=== PATIENT | female | born 1985 | race Caucasian/White ===

== ENCOUNTER 2017-01-14 19:25 | Emergency (ER) | payer MEDICAID, OTHER ==
[~2017-01-14] VITALS: Ht 142.2 cm; Wt 56.0 kg
[~2017-01-14 19:25] MED LIST: ARIP2 PO; ASPI-1061 PO; BENA5TAB26 PO; CITA20TA9 PO; CLON.5 PO; DIVA500T35 PO; INSU100V12 SQ; LEVO50 PO; OXYB5TAB27 PO; PANT40TA PO
[2017-01-14] MEDS ORDERED: LEVO50TA4 PO (20:03)
[2017-01-14] MEDS ORDERED: OLAN7.5T2 PO (20:03)
[2017-01-14] MEDS ORDERED: DIVA500T35 PO (20:03)
[2017-01-14] MEDS ORDERED: GUAN1TAB22 PO (20:03)
[2017-01-14] MEDS ORDERED: INSU100V3 SQ (20:03)
[2017-01-14] MEDS ORDERED: METF500T4 PO (20:03)
[2017-01-14] MEDS ORDERED: OXCA300T PO (20:03)
[2017-01-14] MEDS ORDERED: TOPI100 PO (20:03)
[2017-01-14] MEDS ORDERED: OXYB5XL PO (20:03)
[2017-01-14] MEDS ORDERED: FERSL PO (20:03)
[2017-01-14] MEDS ORDERED: BENA5TAB26 PO (20:03)
[2017-01-14] MEDS ORDERED: SIMV-260 PO (20:03)
[2017-01-14 22:24] LABS: BASOPHILS % (AUTO) 0.2 % (0.0-2.0); EOSINOPHILS % (AUTO) 0.5 % (1.0-6.0); HEMATOCRIT 26.7 % (36-46); HEMOGLOBIN 8.6 g/dL (12.0-16.0); LYMPHOCYTES # (AUTO) 3.8 K/uL (1.0-4.8); LYMPHOCYTES % (AUTO) 33.3 % (22.0-44.0); MEAN CORPUSCULAR HEMOGLOBIN 29.3 pg (26.0-34.0); MEAN CORPUSCULAR HGB CONC 32.3 G/dL (31.0-37.0); MEAN CORPUSCULAR VOLUME 91 fL (80-100); MONOCYTES # (AUTO) 1.3 K/uL (0.1-1.0); MONOCYTES % (AUTO) 10.9 % (2.0-9.0); NEUTROPHILS # (AUTO) 6.4 K/uL (1.8-7.7); NEUTROPHILS % (AUTO) 55.1 % (40.0-70.0); PLATELET COUNT (AUTO) 457 K/uL (150-450); RED BLOOD CELL COUNT(AUTO) 2.94 MIL/uL (4.00-5.20); RED CELL DISTRIBUTION WIDTH 14.6 % (11.5-14.5); WHITE BLOOD COUNT (AUTO) 11.5 K/uL (4.5-11.0)
[2017-01-14 22:35] LABS: ANION GAP 6 mmol/L (8-16); CALCIUM, TOTAL 9.3 mg/dL (8.8-10.5); CARBON DIOXIDE 28 mmol/L (22-29); CHLORIDE 107 mmol/L (98-107); CREATININE 0.73 mg/dL (0.60-1.30); GLOMERULAR FILTR. RATE CALC > 60 mL/min (>60); POTASSIUM 4.1 mmol/L (3.5-5.1); SODIUM SERUM 141 mmol/L (136-145); UREA NITROGEN, BLOOD 36 mg/dL (7-18)
[2017-01-14 22:40] LABS: ALANINE AMINOTRANSFERASE 22 U/L (12-78); ALBUMIN 2.7 g/dL (3.4-5.0); ASPARTATE AMINOTRANSFERASE 17 U/L (15-37); BILIRUBIN,TOTAL 0.2 mg/dL (0.1-1.0); TOTAL PROTEIN, SERUM 6.6 g/dL (6.4-8.2)
[2017-01-14 23:46] LABS: GLUCOSE,POINT OF CARE 94 MG/DL (70-110)
[2017-01-15 00:32] VITALS: BP 116/69
== END 2017-01-15 00:34 | disposition home or self-care (01) ==
LOC: EMS 19:27
DX: S00.81XA Abrasion of other part of head, initial encounter (principal); M54.5 Low back pain; E11.9 Type 2 diabetes mellitus without complications; E78.00 Pure hypercholesterolemia, unspecified; E03.9 Hypothyroidism, unspecified; I10 Essential (primary) hypertension; Z79.4 Long term (current) use of insulin; Z79.82 Long term (current) use of aspirin; X58.XXXA Exposure to other specified factors, initial encounter; Y93.89 Activity, other specified; Y92.89 Other specified places as the place of occurrence of the external cause; Y99.8 Other external cause status
CPT/HCPCS: 82962; 99284

== ENCOUNTER 2017-04-29 13:05 | Inpatient (IN) | payer MEDICAID, OTHER ==
[~2017-04-29] VITALS: Ht 144.8 cm; Wt 56.0 kg
[~2017-04-29 13:05] MED LIST changes: -ASPI-1061 PO; +ASPI81TA33 PO; +FERSL PO; +GUAN1TAB22 PO; +INSU100V3 SQ; +LEVO50TA4 PO; +METF500T4 PO; +OLAN7.5T2 PO; +OXCA300T PO; +OXYB5XL PO; +SIMV-260 PO; +TOPI100T37 PO
[2017-04-29] MEDS ORDERED: HALOPERIDOL LACTATE 5 MG/ML VIAL IM ONE (14:15)
[2017-04-29] MEDS ORDERED: LORazepam 2 MG/ML VIAL IM ONE ×2 (14:15→21:30)
[2017-04-29] MEDS: QUEtiapine FUMARATE 100 MG TABLET PO SCH (16:24)
[2017-04-29 17:06] LABS: BASOPHILS # (AUTO) 0.02 K/uL (0.00-0.20); BASOPHILS % (AUTO) 0.2 % (0.0-2.0); EOSINOPHILS # (AUTO) 0.02 K/uL (0.00-0.70); HEMATOCRIT 32.9 % (36-46); HEMOGLOBIN 10.9 g/dL (12.0-16.0); LYMPHOCYTES # (AUTO) 3.2 K/uL (1.0-4.8); LYMPHOCYTES % (AUTO) 40.5 % (22.0-44.0); MEAN CORPUSCULAR HEMOGLOBIN 32.3 pg (26.0-34.0); MEAN CORPUSCULAR VOLUME 98 fL (80-100); MONOCYTES # (AUTO) 0.8 K/uL (0.1-1.0); MONOCYTES % (AUTO) 10.4 % (2.0-9.0); NEUTROPHILS # (AUTO) 3.8 K/uL (1.8-7.7); NEUTROPHILS % (AUTO) 48.7 % (40.0-70.0); PLATELET COUNT (AUTO) 249 K/uL (150-450); RED BLOOD CELL COUNT(AUTO) 3.37 MIL/uL (4.00-5.20); RED CELL DISTRIBUTION WIDTH 15.2 % (11.5-14.5); WHITE BLOOD COUNT (AUTO) 7.8 K/uL (4.5-11.0)
[2017-04-29 17:07] LABS: ANION GAP 3 mmol/L (8-16); CARBON DIOXIDE 28 mmol/L (22-29); CHLORIDE 104 mmol/L (98-107); CREATININE 0.78 mg/dL (0.60-1.30); GLOMERULAR FILTR. RATE CALC > 60 mL/min (>60); POTASSIUM 4.4 mmol/L (3.5-5.1); SODIUM SERUM 135 mmol/L (136-145); UREA NITROGEN, BLOOD 26 mg/dL (7-18)
[2017-04-29 17:22] LABS: ALANINE AMINOTRANSFERASE 13 U/L (12-78); ALBUMIN 2.4 g/dL (3.4-5.0); ASPARTATE AMINOTRANSFERASE 19 U/L (15-37); BILIRUBIN,TOTAL 0.1 mg/dL (0.1-1.0); CHOL/HDL RATIO 2.7 (3.9-5.7); THYROID STIMULATING HORMONE 11.86 uIU/mL (0.36-3.74); VALPROIC ACID 44 mcg/mL (50-100)
[2017-04-29 21:52] LABS: GLUCOSE,POINT OF CARE 46 MG/DL (70-110)
[2017-04-29] MEDS ORDERED: DEXTROSE 50%-WATER 25 GM/50 ML SYRINGE IVP ONE (22:00)
[2017-04-29 22:37] LABS: GLUCOSE,POINT OF CARE 126 MG/DL (70-110)
[2017-04-29 23:12] LABS: GLUCOSE,POINT OF CARE 187 MG/DL (70-110)
[2017-04-30] MEDS ORDERED: -PHARMACY VACCINE NOTE- MISC ONE ×2 (01:15)
[2017-04-30] MEDS ORDERED: INFLUENZA VIRUS VACCINE QVS 2017-18 (3YR+)/PF 60 MCG/0.5 ML SYRINGE IM ONE (01:15)
[2017-04-30] MEDS: LORazepam 2 MG TABLET PO PRN (01:30)
[2017-04-30 01:48] VITALS: BP 113/89
[2017-04-30 05:58] LABS: GLUCOSE COMMENT 1 Received Meds; GLUCOSE,POINT OF CARE 105 MG/DL (70-110)
[2017-04-30] MEDS: RisperiDONE 0.5 MG TABLET PO SCH ×2 (08:47→17:00)
[2017-04-30] MEDS: ClonazePAM 0.5 MG TABLET PO SCH ×3 (08:47→17:00)
[2017-04-30] MEDS: GuanFACINE HCL 1 MG TABLET PO SCH ×2 (08:47→17:00)
[2017-04-30] MEDS: DIVALPROEX SODIUM 500 MG DR TABLET PO SCH ×3 (08:47→17:00)
[2017-04-30] MEDS: QUEtiapine FUMARATE 100 MG TABLET PO SCH ×3 (08:47→17:00)
[2017-04-30] MEDS ORDERED: DiphenhydrAMINE HCL 50 MG/ML VIAL IM ONE (16:30)
[2017-04-30] MEDS ORDERED: LORazepam 2 MG/ML VIAL IM ONE (16:30)
[2017-04-30] MEDS ORDERED: HALOPERIDOL LACTATE 5 MG/ML VIAL IM ONE (16:30)
[2017-04-30] MEDS ORDERED: ARIP10TA8 PO (16:31)
[2017-05-01] MEDS: ZOLPIDEM TARTRATE 10 MG TABLET PO PRN ×2 (00:13→21:50)
[2017-05-01 06:12] LABS: GLUCOSE,POINT OF CARE 110 MG/DL (70-110)
[2017-05-01] MEDS ORDERED: DEXTROSE 50%-WATER 25 GM/50 ML SYRINGE IVP PRN (07:15)
[2017-05-01] MEDS: LEVOTHYROXINE SODIUM 50 MCG TABLET PO SCH (07:25)
[2017-05-01] MEDS: FERROUS SULFATE 300 MG/5 ML LIQUID UDCUP PO SCH ×2 (07:25→17:49)
[2017-05-01] MEDS: LevETIRAcetam 250 MG TABLET PO SCH ×2 (08:16→17:49)
[2017-05-01] MEDS: OXYBUTYNIN CHLORIDE 5 MG ER TABLET PO SCH (08:16)
[2017-05-01] MEDS: GuanFACINE HCL 1 MG TABLET PO SCH ×2 (08:16→17:49)
[2017-05-01] MEDS: MULTIVITAMINS WITH MINERALS, THERAPEUTIC TABLET PO SCH (08:19)
[2017-05-01] MEDS: PANTOPRAZOLE SODIUM 40 MG DR TABLET PO SCH (08:20)
[2017-05-01] MEDS: ASPIRIN 81 MG EC TABLET PO SCH (08:20)
[2017-05-01] MEDS: ClonazePAM 0.5 MG TABLET PO SCH ×3 (08:20→17:51)
[2017-05-01] MEDS: DOCUSATE SODIUM 100 MG CAPSULE PO PRN (08:20)
[2017-05-01] MEDS: SIMVASTATIN 20 MG TABLET PO SCH (08:20)
[2017-05-01] MEDS: HALOPERIDOL 5 MG TABLET PO PRN (08:20)
[2017-05-01] MEDS: LORazepam 2 MG TABLET PO PRN ×2 (08:20→21:50)
[2017-05-01] MEDS: RisperiDONE 0.5 MG TABLET PO SCH ×2 (08:20→17:51)
[2017-05-01] MEDS: DIVALPROEX SODIUM 500 MG DR TABLET PO SCH ×3 (08:20→17:53)
[2017-05-01] MEDS: QUEtiapine FUMARATE 100 MG TABLET PO SCH ×3 (08:21→17:51)
[2017-05-01] MEDS ORDERED: GuanFACINE HCL 1 MG TABLET PO SCH (09:00)
[2017-05-01 12:03] LABS: GLUCOSE,POINT OF CARE 264 MG/DL (70-110)
[2017-05-01] MEDS: INSULIN ASPART 100 UNITS/ML SQ PRN ×3 (12:16→21:30)
[2017-05-01 17:43] LABS: GLUCOSE,POINT OF CARE 186 MG/DL (70-110)
[2017-05-01 22:13] LABS: GLUCOSE,POINT OF CARE 176 MG/DL (70-110)
[2017-05-02 06:24] LABS: GLUCOSE COMMENT 1 Received Meds; GLUCOSE,POINT OF CARE 126 MG/DL (70-110)
[2017-05-02] MEDS: LEVOTHYROXINE SODIUM 50 MCG TABLET PO SCH (06:45)
[2017-05-02] MEDS: FERROUS SULFATE 300 MG/5 ML LIQUID UDCUP PO SCH ×2 (06:45→17:14)
[2017-05-02 08:00] VITALS: BP 111/74
[2017-05-02 08:08] LABS: ANION GAP 6 mmol/L (8-16); CARBON DIOXIDE 28 mmol/L (22-29); CHLORIDE 101 mmol/L (98-107); GLOMERULAR FILTR. RATE CALC > 60 mL/min (>60); POTASSIUM 4.3 mmol/L (3.5-5.1); SODIUM SERUM 135 mmol/L (136-145); UREA NITROGEN, BLOOD 11 mg/dL (7-18)
[2017-05-02] MEDS: SIMVASTATIN 20 MG TABLET PO SCH (09:00)
[2017-05-02] MEDS: LevETIRAcetam 250 MG TABLET PO SCH ×2 (09:00→17:13)
[2017-05-02] MEDS: QUEtiapine FUMARATE 100 MG TABLET PO SCH ×3 (09:00→17:13)
[2017-05-02] MEDS: DIVALPROEX SODIUM 500 MG DR TABLET PO SCH ×3 (09:00→17:13)
[2017-05-02] MEDS: ASPIRIN 81 MG EC TABLET PO SCH (09:00)
[2017-05-02] MEDS: RisperiDONE 0.5 MG TABLET PO SCH ×2 (09:00→17:13)
[2017-05-02] MEDS: GuanFACINE HCL 1 MG TABLET PO SCH ×2 (09:00→17:14)
[2017-05-02] MEDS: MULTIVITAMINS WITH MINERALS, THERAPEUTIC TABLET PO SCH (09:00)
[2017-05-02] MEDS: PANTOPRAZOLE SODIUM 40 MG DR TABLET PO SCH (09:00)
[2017-05-02] MEDS: OXYBUTYNIN CHLORIDE 5 MG ER TABLET PO SCH (09:00)
[2017-05-02] MEDS: ClonazePAM 0.5 MG TABLET PO SCH ×3 (09:00→17:13)
[2017-05-02] MEDS ORDERED: DiphenhydrAMINE HCL 50 MG/ML VIAL ONE (10:06)
[2017-05-02] MEDS ORDERED: LORazepam 2 MG/ML VIAL ONE (10:06)
[2017-05-02] MEDS ORDERED: HALOPERIDOL LACTATE 5 MG/ML VIAL ONE (10:06)
[2017-05-02] MEDS ORDERED: LORazepam 2 MG/ML VIAL IM ONE ×2 (10:15→16:45)
[2017-05-02] MEDS ORDERED: HALOPERIDOL LACTATE 5 MG/ML VIAL IM ONE ×2 (10:15→16:45)
[2017-05-02] MEDS ORDERED: DiphenhydrAMINE HCL 50 MG/ML VIAL IM ONE (10:15)
[2017-05-02] MEDS: NEOMYCIN/BACITRACIN/POLYMYXIN B 30 GM OINTMENT TP SCH ×2 (11:41→17:13)
[2017-05-02 17:08] LABS: GLUCOSE,POINT OF CARE 118 MG/DL (70-110)
[2017-05-02 22:05] LABS: GLUCOSE,POINT OF CARE 93 MG/DL (70-110)
[2017-05-02] MEDS: ZOLPIDEM TARTRATE 10 MG TABLET PO PRN (22:41)
[2017-05-03] MEDS: LEVOTHYROXINE SODIUM 50 MCG TABLET PO SCH (06:54)
[2017-05-03] MEDS: FERROUS SULFATE 300 MG/5 ML LIQUID UDCUP PO SCH ×2 (06:54→17:59)
[2017-05-03] MEDS: SIMVASTATIN 20 MG TABLET PO SCH (08:08)
[2017-05-03] MEDS: DIVALPROEX SODIUM 500 MG DR TABLET PO SCH ×3 (08:08→17:58)
[2017-05-03] MEDS: LevETIRAcetam 250 MG TABLET PO SCH ×2 (08:08→17:58)
[2017-05-03] MEDS: GuanFACINE HCL 1 MG TABLET PO SCH ×2 (08:08→17:58)
[2017-05-03] MEDS: ASPIRIN 81 MG EC TABLET PO SCH (08:08)
[2017-05-03] MEDS: OXYBUTYNIN CHLORIDE 5 MG ER TABLET PO SCH (08:08)
[2017-05-03] MEDS: ClonazePAM 0.5 MG TABLET PO SCH ×3 (08:08→17:58)
[2017-05-03] MEDS: PANTOPRAZOLE SODIUM 40 MG DR TABLET PO SCH (08:09)
[2017-05-03] MEDS: QUEtiapine FUMARATE 100 MG TABLET PO SCH ×3 (08:09→17:58)
[2017-05-03] MEDS: RisperiDONE 0.5 MG TABLET PO SCH ×2 (08:09→17:58)
[2017-05-03] MEDS: MULTIVITAMINS WITH MINERALS, THERAPEUTIC TABLET PO SCH (08:09)
[2017-05-03 09:46] VITALS: BP 116/62
[2017-05-03] MEDS: NEOMYCIN/BACITRACIN/POLYMYXIN B 30 GM OINTMENT TP SCH ×2 (11:39→17:58)
[2017-05-03] MEDS: INSULIN ASPART 100 UNITS/ML SQ PRN (11:55)
[2017-05-03 12:09] LABS: GLUCOSE COMMENT 1 Received Meds; GLUCOSE,POINT OF CARE 179 MG/DL (70-110)
[2017-05-03 16:34] VITALS: BP 112/78
[2017-05-03] MEDS: LORazepam 2 MG TABLET PO PRN (19:15)
[2017-05-03] MEDS: HALOPERIDOL 5 MG TABLET PO PRN (19:15)
[2017-05-03] MEDS: LOPERAMIDE HCL 2 MG CAPSULE PO PRN (20:02)
[2017-05-03 21:02] LABS: GLUCOSE,POINT OF CARE 69 MG/DL (70-110)
[2017-05-03] MEDS: SULFAMETHOX/TRIMETH DS 800-160 MG/TABLET PO SCH (21:19)
[2017-05-04 06:42] LABS: GLUCOSE,POINT OF CARE 167 MG/DL (70-110)
[2017-05-04] MEDS: LEVOTHYROXINE SODIUM 50 MCG TABLET PO SCH (07:02)
[2017-05-04] MEDS: FERROUS SULFATE 300 MG/5 ML LIQUID UDCUP PO SCH ×2 (07:02→17:41)
[2017-05-04] MEDS: INSULIN ASPART 100 UNITS/ML SQ PRN (07:06)
[2017-05-04] MEDS: DIVALPROEX SODIUM 500 MG DR TABLET PO SCH ×3 (08:17→17:44)
[2017-05-04] MEDS: SULFAMETHOX/TRIMETH DS 800-160 MG/TABLET PO SCH ×2 (08:17→17:44)
[2017-05-04] MEDS: ClonazePAM 0.5 MG TABLET PO SCH ×3 (08:17→17:44)
[2017-05-04] MEDS: SIMVASTATIN 20 MG TABLET PO SCH (08:17)
[2017-05-04] MEDS: PANTOPRAZOLE SODIUM 40 MG DR TABLET PO SCH (08:17)
[2017-05-04] MEDS: ASPIRIN 81 MG EC TABLET PO SCH (08:17)
[2017-05-04] MEDS: RisperiDONE 0.5 MG TABLET PO SCH ×2 (08:17→17:44)
[2017-05-04] MEDS: GuanFACINE HCL 1 MG TABLET PO SCH ×2 (08:17→17:41)
[2017-05-04] MEDS: QUEtiapine FUMARATE 100 MG TABLET PO SCH ×3 (08:18→17:44)
[2017-05-04] MEDS: NEOMYCIN/BACITRACIN/POLYMYXIN B 30 GM OINTMENT TP SCH ×2 (08:18→17:42)
[2017-05-04] MEDS: OXYBUTYNIN CHLORIDE 5 MG ER TABLET PO SCH (08:18)
[2017-05-04] MEDS: LevETIRAcetam 250 MG TABLET PO SCH ×2 (08:18→17:41)
[2017-05-04] MEDS: MULTIVITAMINS WITH MINERALS, THERAPEUTIC TABLET PO SCH (09:00)
[2017-05-04 09:55] VITALS: BP 118/74
[2017-05-04 16:46] VITALS: BP 110/74
[2017-05-05 00:14] LABS: GLUCOSE COMMENT 1 FASTING; GLUCOSE,POINT OF CARE 104 MG/DL (70-110)
[2017-05-05] MEDS: LORazepam 2 MG TABLET PO PRN (05:53)
[2017-05-05 05:58] LABS: GLUCOSE,POINT OF CARE 133 MG/DL (70-110)
[2017-05-05] MEDS: HALOPERIDOL 5 MG TABLET PO PRN (06:25)
[2017-05-05] MEDS: LEVOTHYROXINE SODIUM 50 MCG TABLET PO SCH (06:25)
[2017-05-05] MEDS: FERROUS SULFATE 300 MG/5 ML LIQUID UDCUP PO SCH ×2 (07:28→17:53)
[2017-05-05] MEDS: SULFAMETHOX/TRIMETH DS 800-160 MG/TABLET PO SCH ×2 (08:25→16:07)
[2017-05-05] MEDS: OXYBUTYNIN CHLORIDE 5 MG ER TABLET PO SCH (08:25)
[2017-05-05] MEDS: ASPIRIN 81 MG EC TABLET PO SCH (08:25)
[2017-05-05] MEDS: DIVALPROEX SODIUM 500 MG DR TABLET PO SCH ×3 (08:25→16:07)
[2017-05-05 08:26] VITALS: BP 100/53
[2017-05-05] MEDS: LevETIRAcetam 250 MG TABLET PO SCH ×2 (08:26→16:08)
[2017-05-05] MEDS: PANTOPRAZOLE SODIUM 40 MG DR TABLET PO SCH (08:26)
[2017-05-05] MEDS: ClonazePAM 0.5 MG TABLET PO SCH ×3 (08:26→16:07)
[2017-05-05] MEDS: GuanFACINE HCL 1 MG TABLET PO SCH ×2 (08:26→16:07)
[2017-05-05] MEDS: RisperiDONE 0.5 MG TABLET PO SCH ×2 (08:26→16:07)
[2017-05-05] MEDS: QUEtiapine FUMARATE 100 MG TABLET PO SCH ×3 (08:26→16:07)
[2017-05-05] MEDS: NEOMYCIN/BACITRACIN/POLYMYXIN B 30 GM OINTMENT TP SCH ×2 (08:27→16:08)
[2017-05-05] MEDS: SIMVASTATIN 20 MG TABLET PO SCH (08:27)
[2017-05-05] MEDS: MULTIVITAMINS WITH MINERALS, THERAPEUTIC TABLET PO SCH (08:27)
[2017-05-05 08:31] VITALS: BP 109/75
[2017-05-05] MEDS: INSULIN ASPART 100 UNITS/ML SQ PRN ×2 (16:41→21:55)
[2017-05-05 16:43] LABS: GLUCOSE,POINT OF CARE 187 MG/DL (70-110)
[2017-05-05 16:59] VITALS: BP 128/77
[2017-05-05] MEDS ORDERED: LORazepam 2 MG/ML VIAL IM ONE (18:30)
[2017-05-05] MEDS ORDERED: HALOPERIDOL LACTATE 5 MG/ML VIAL IM ONE (18:30)
[2017-05-05] MEDS ORDERED: DiphenhydrAMINE HCL 50 MG/ML VIAL IM ONE (18:30)
[2017-05-05] MEDS ORDERED: HALOPERIDOL LACTATE 5 MG/ML VIAL ONE (18:32)
[2017-05-05] MEDS ORDERED: LORazepam 2 MG/ML VIAL ONE (18:32)
[2017-05-05] MEDS ORDERED: DiphenhydrAMINE HCL 50 MG/ML VIAL ONE (18:32)
[2017-05-05 22:02] LABS: GLUCOSE COMMENT 1 Received Meds; GLUCOSE,POINT OF CARE 231 MG/DL (70-110)
[2017-05-06 01:18] VITALS: BP 122/73
[2017-05-06] MEDS: LEVOTHYROXINE SODIUM 50 MCG TABLET PO SCH (07:00)
[2017-05-06] MEDS: FERROUS SULFATE 300 MG/5 ML LIQUID UDCUP PO SCH ×2 (07:03→17:55)
[2017-05-06] MEDS: PANTOPRAZOLE SODIUM 40 MG DR TABLET PO SCH (07:55)
[2017-05-06] MEDS: DOCUSATE SODIUM 100 MG CAPSULE PO PRN (07:55)
[2017-05-06] MEDS: MULTIVITAMINS WITH MINERALS, THERAPEUTIC TABLET PO SCH (07:55)
[2017-05-06] MEDS: RisperiDONE 0.5 MG TABLET PO SCH ×2 (07:55→17:52)
[2017-05-06] MEDS: ClonazePAM 1 MG TABLET PO SCH ×3 (07:55→17:52)
[2017-05-06] MEDS: GuanFACINE HCL 1 MG TABLET PO SCH ×2 (07:55→17:53)
[2017-05-06] MEDS: SULFAMETHOX/TRIMETH DS 800-160 MG/TABLET PO SCH ×2 (07:55→17:48)
[2017-05-06] MEDS: QUEtiapine FUMARATE 200 MG TABLET PO SCH ×3 (07:55→17:52)
[2017-05-06] MEDS: SIMVASTATIN 20 MG TABLET PO SCH (07:55)
[2017-05-06] MEDS: OXYBUTYNIN CHLORIDE 5 MG ER TABLET PO SCH (07:55)
[2017-05-06] MEDS: ASPIRIN 81 MG EC TABLET PO SCH (07:55)
[2017-05-06] MEDS: NEOMYCIN/BACITRACIN/POLYMYXIN B 30 GM OINTMENT TP SCH ×2 (07:56→17:55)
[2017-05-06] MEDS: DIVALPROEX SODIUM 500 MG DR TABLET PO SCH ×3 (07:56→17:48)
[2017-05-06] MEDS: LevETIRAcetam 250 MG TABLET PO SCH ×2 (07:56→17:50)
[2017-05-06 08:09] VITALS: BP 107/67
[2017-05-06 10:57] LABS: GLUCOSE COMMENT 1 Received Meds; GLUCOSE,POINT OF CARE 236 MG/DL (70-110)
[2017-05-06] MEDS: INSULIN ASPART 100 UNITS/ML SQ PRN ×2 (12:15→17:51)
[2017-05-06 16:04] VITALS: BP 116/76
[2017-05-06 17:53] LABS: GLUCOSE,POINT OF CARE 161 MG/DL (70-110)
[2017-05-07 06:40] LABS: GLUCOSE COMMENT 1 Received Meds; GLUCOSE,POINT OF CARE 158 MG/DL (70-110)
[2017-05-07] MEDS: LEVOTHYROXINE SODIUM 50 MCG TABLET PO SCH (06:41)
[2017-05-07] MEDS: FERROUS SULFATE 300 MG/5 ML LIQUID UDCUP PO SCH ×2 (06:52→17:26)
[2017-05-07] MEDS: INSULIN ASPART 100 UNITS/ML SQ PRN ×2 (06:55→12:29)
[2017-05-07] MEDS: RisperiDONE 0.5 MG TABLET PO SCH ×2 (07:41→17:26)
[2017-05-07] MEDS: PANTOPRAZOLE SODIUM 40 MG DR TABLET PO SCH (07:41)
[2017-05-07] MEDS: ASPIRIN 81 MG EC TABLET PO SCH (07:41)
[2017-05-07] MEDS: QUEtiapine FUMARATE 200 MG TABLET PO SCH ×3 (07:41→17:26)
[2017-05-07] MEDS: SULFAMETHOX/TRIMETH DS 800-160 MG/TABLET PO SCH ×2 (07:41→17:27)
[2017-05-07] MEDS: MULTIVITAMINS WITH MINERALS, THERAPEUTIC TABLET PO SCH (07:41)
[2017-05-07] MEDS: DOCUSATE SODIUM 100 MG CAPSULE PO PRN ×2 (07:41→17:25)
[2017-05-07] MEDS: GuanFACINE HCL 1 MG TABLET PO SCH ×2 (07:42→17:26)
[2017-05-07] MEDS: OXYBUTYNIN CHLORIDE 5 MG ER TABLET PO SCH (07:42)
[2017-05-07] MEDS: ClonazePAM 1 MG TABLET PO SCH ×3 (07:42→17:26)
[2017-05-07] MEDS: DIVALPROEX SODIUM 500 MG DR TABLET PO SCH ×3 (07:42→17:26)
[2017-05-07] MEDS: LevETIRAcetam 250 MG TABLET PO SCH ×2 (07:42→17:26)
[2017-05-07] MEDS: NEOMYCIN/BACITRACIN/POLYMYXIN B 30 GM OINTMENT TP SCH ×2 (07:43→17:26)
[2017-05-07] MEDS: SIMVASTATIN 20 MG TABLET PO SCH (07:43)
[2017-05-07 08:00] VITALS: BP 124/54
[2017-05-07 11:23] LABS: GLUCOSE COMMENT 1 Received Meds; GLUCOSE,POINT OF CARE 156 MG/DL (70-110)
[2017-05-07 17:47] LABS: GLUCOSE COMMENT 1 FASTING; GLUCOSE,POINT OF CARE 101 MG/DL (70-110)
[2017-05-07 20:40] VITALS: BP 118/78
[2017-05-07] MEDS: ZOLPIDEM TARTRATE 10 MG TABLET PO PRN (21:26)
[2017-05-07] MEDS: HALOPERIDOL 5 MG TABLET PO PRN (21:26)
[2017-05-07] MEDS: LOPERAMIDE HCL 2 MG CAPSULE PO PRN (21:36)
[2017-05-08 06:44] LABS: GLUCOSE,POINT OF CARE 253 MG/DL (70-110)
[2017-05-08] MEDS: LEVOTHYROXINE SODIUM 50 MCG TABLET PO SCH (07:00)
[2017-05-08] MEDS: FERROUS SULFATE 300 MG/5 ML LIQUID UDCUP PO SCH ×2 (07:09→16:58)
[2017-05-08] MEDS: INSULIN ASPART 100 UNITS/ML SQ PRN ×3 (07:20→17:10)
[2017-05-08] MEDS: SIMVASTATIN 20 MG TABLET PO SCH (07:31)
[2017-05-08] MEDS: SULFAMETHOX/TRIMETH DS 800-160 MG/TABLET PO SCH ×2 (07:31→16:57)
[2017-05-08] MEDS: ClonazePAM 1 MG TABLET PO SCH ×3 (07:31→16:57)
[2017-05-08] MEDS: DIVALPROEX SODIUM 500 MG DR TABLET PO SCH ×3 (07:31→16:57)
[2017-05-08] MEDS: MULTIVITAMINS WITH MINERALS, THERAPEUTIC TABLET PO SCH (07:31)
[2017-05-08] MEDS: PANTOPRAZOLE SODIUM 40 MG DR TABLET PO SCH (07:31)
[2017-05-08] MEDS: ASPIRIN 81 MG EC TABLET PO SCH (07:31)
[2017-05-08] MEDS: RisperiDONE 0.5 MG TABLET PO SCH ×2 (07:31→16:57)
[2017-05-08] MEDS: QUEtiapine FUMARATE 200 MG TABLET PO SCH ×3 (07:31→16:57)
[2017-05-08] MEDS: LevETIRAcetam 250 MG TABLET PO SCH ×2 (07:32→16:57)
[2017-05-08] MEDS: GuanFACINE HCL 1 MG TABLET PO SCH ×2 (07:32→16:57)
[2017-05-08] MEDS: OXYBUTYNIN CHLORIDE 5 MG ER TABLET PO SCH (07:32)
[2017-05-08] MEDS: LOPERAMIDE HCL 2 MG CAPSULE PO PRN (07:33)
[2017-05-08 08:00] VITALS: BP 104/62
[2017-05-08 12:37] LABS: GLUCOSE,POINT OF CARE 221 MG/DL (70-110)
[2017-05-08] MEDS: NEOMYCIN/BACITRACIN/POLYMYXIN B 30 GM OINTMENT TP SCH ×2 (13:21→16:58)
[2017-05-08 17:53] LABS: GLUCOSE,POINT OF CARE 297 MG/DL (70-110)
[2017-05-08 18:29] VITALS: BP 121/78
[2017-05-09] MEDS: HALOPERIDOL 5 MG TABLET PO PRN ×2 (06:29→17:23)
[2017-05-09] MEDS: LORazepam 2 MG TABLET PO PRN (06:29)
[2017-05-09 06:53] LABS: GLUCOSE,POINT OF CARE 90 MG/DL (70-110)
[2017-05-09] MEDS: FERROUS SULFATE 300 MG/5 ML LIQUID UDCUP PO SCH ×2 (07:04→17:23)
[2017-05-09] MEDS: LEVOTHYROXINE SODIUM 50 MCG TABLET PO SCH (07:04)
[2017-05-09] MEDS: INSULIN ASPART 100 UNITS/ML SQ PRN ×3 (07:08→17:31)
[2017-05-09] MEDS: GuanFACINE HCL 1 MG TABLET PO SCH ×2 (08:50→17:23)
[2017-05-09] MEDS: LevETIRAcetam 250 MG TABLET PO SCH ×2 (08:51→17:25)
[2017-05-09] MEDS: DOCUSATE SODIUM 100 MG CAPSULE PO PRN (08:54)
[2017-05-09] MEDS: RisperiDONE 0.5 MG TABLET PO SCH ×2 (08:54→17:23)
[2017-05-09] MEDS: NEOMYCIN/BACITRACIN/POLYMYXIN B 30 GM OINTMENT TP SCH ×2 (08:54→17:23)
[2017-05-09] MEDS: ASPIRIN 81 MG EC TABLET PO SCH (08:54)
[2017-05-09] MEDS: PANTOPRAZOLE SODIUM 40 MG DR TABLET PO SCH (08:54)
[2017-05-09] MEDS: SULFAMETHOX/TRIMETH DS 800-160 MG/TABLET PO SCH ×2 (08:54→17:23)
[2017-05-09] MEDS: QUEtiapine FUMARATE 200 MG TABLET PO SCH ×4 (08:54→17:23)
[2017-05-09] MEDS: SIMVASTATIN 20 MG TABLET PO SCH (08:54)
[2017-05-09] MEDS: ClonazePAM 1 MG TABLET PO SCH ×4 (08:54→17:22)
[2017-05-09] MEDS: DIVALPROEX SODIUM 500 MG DR TABLET PO SCH ×4 (08:54→17:23)
[2017-05-09] MEDS: MULTIVITAMINS WITH MINERALS, THERAPEUTIC TABLET PO SCH (08:54)
[2017-05-09] MEDS: OXYBUTYNIN CHLORIDE 5 MG ER TABLET PO SCH (11:31)
[2017-05-09 11:44] LABS: GLUCOSE,POINT OF CARE 181 MG/DL (70-110)
[2017-05-09 16:16] VITALS: BP 116/81
[2017-05-09 17:38] LABS: GLUCOSE COMMENT 1 FASTING; GLUCOSE,POINT OF CARE 250 MG/DL (70-110)
[2017-05-10 06:18] LABS: GLUCOSE,POINT OF CARE 169 MG/DL (70-110)
[2017-05-10] MEDS: FERROUS SULFATE 300 MG/5 ML LIQUID UDCUP PO SCH ×2 (07:01→16:54)
[2017-05-10] MEDS: LEVOTHYROXINE SODIUM 50 MCG TABLET PO SCH (07:01)
[2017-05-10] MEDS: INSULIN ASPART 100 UNITS/ML SQ PRN ×2 (07:15→11:49)
[2017-05-10 08:46] VITALS: BP 104/59
[2017-05-10] MEDS: PANTOPRAZOLE SODIUM 40 MG DR TABLET PO SCH (09:17)
[2017-05-10] MEDS: RisperiDONE 0.5 MG TABLET PO SCH ×2 (09:17→16:54)
[2017-05-10] MEDS: GuanFACINE HCL 1 MG TABLET PO SCH ×2 (09:17→16:54)
[2017-05-10] MEDS: SULFAMETHOX/TRIMETH DS 800-160 MG/TABLET PO SCH ×2 (09:17→16:55)
[2017-05-10] MEDS: DOCUSATE SODIUM 100 MG CAPSULE PO PRN (09:17)
[2017-05-10] MEDS: ASPIRIN 81 MG EC TABLET PO SCH (09:17)
[2017-05-10] MEDS: MULTIVITAMINS WITH MINERALS, THERAPEUTIC TABLET PO SCH (09:17)
[2017-05-10] MEDS: LevETIRAcetam 250 MG TABLET PO SCH ×2 (09:18→16:54)
[2017-05-10] MEDS: DIVALPROEX SODIUM 500 MG DR TABLET PO SCH ×3 (09:18→16:54)
[2017-05-10] MEDS: QUEtiapine FUMARATE 200 MG TABLET PO SCH ×3 (09:18→16:54)
[2017-05-10] MEDS: ClonazePAM 1 MG TABLET PO SCH ×3 (09:18→16:55)
[2017-05-10] MEDS: SIMVASTATIN 20 MG TABLET PO SCH (09:18)
[2017-05-10] MEDS: OXYBUTYNIN CHLORIDE 5 MG ER TABLET PO SCH (09:18)
[2017-05-10] MEDS: NEOMYCIN/BACITRACIN/POLYMYXIN B 30 GM OINTMENT TP SCH ×2 (09:19→16:54)
[2017-05-10 11:54] LABS: GLUCOSE,POINT OF CARE 191 MG/DL (70-110)
[2017-05-10 17:38] LABS: GLUCOSE,POINT OF CARE 242 MG/DL (70-110)
[2017-05-11] MEDS: LEVOTHYROXINE SODIUM 50 MCG TABLET PO SCH (06:58)
[2017-05-11] MEDS: INSULIN ASPART 100 UNITS/ML SQ PRN ×3 (06:59→17:22)
[2017-05-11] MEDS: FERROUS SULFATE 300 MG/5 ML LIQUID UDCUP PO SCH ×2 (07:02→17:19)
[2017-05-11 07:07] LABS: GLUCOSE COMMENT 1 Received Meds; GLUCOSE,POINT OF CARE 181 MG/DL (70-110)
[2017-05-11 08:00] VITALS: BP 112/62
[2017-05-11] MEDS: NEOMYCIN/BACITRACIN/POLYMYXIN B 30 GM OINTMENT TP SCH ×2 (08:57→17:20)
[2017-05-11] MEDS: ClonazePAM 1 MG TABLET PO SCH ×3 (08:58→17:20)
[2017-05-11] MEDS: OXYBUTYNIN CHLORIDE 5 MG ER TABLET PO SCH (08:58)
[2017-05-11] MEDS: LevETIRAcetam 250 MG TABLET PO SCH ×2 (08:58→17:20)
[2017-05-11] MEDS: QUEtiapine FUMARATE 200 MG TABLET PO SCH ×3 (08:58→17:20)
[2017-05-11] MEDS: DIVALPROEX SODIUM 500 MG DR TABLET PO SCH ×3 (08:58→17:20)
[2017-05-11] MEDS: SIMVASTATIN 20 MG TABLET PO SCH (08:58)
[2017-05-11] MEDS: SULFAMETHOX/TRIMETH DS 800-160 MG/TABLET PO SCH ×2 (08:58→17:20)
[2017-05-11] MEDS: ASPIRIN 81 MG EC TABLET PO SCH (08:59)
[2017-05-11] MEDS: MULTIVITAMINS WITH MINERALS, THERAPEUTIC TABLET PO SCH (08:59)
[2017-05-11] MEDS: PANTOPRAZOLE SODIUM 40 MG DR TABLET PO SCH (08:59)
[2017-05-11] MEDS: GuanFACINE HCL 1 MG TABLET PO SCH ×2 (08:59→17:20)
[2017-05-11] MEDS: RisperiDONE 0.5 MG TABLET PO SCH ×2 (08:59→17:20)
[2017-05-11] MEDS: HALOPERIDOL 5 MG TABLET PO PRN ×2 (09:53→15:52)
[2017-05-11] MEDS: LORazepam 2 MG TABLET PO PRN ×2 (09:53→15:53)
[2017-05-11 11:28] LABS: GLUCOSE,POINT OF CARE 196 MG/DL (70-110)
[2017-05-11 16:58] LABS: GLUCOSE COMMENT 1 FASTING; GLUCOSE,POINT OF CARE 189 MG/DL (70-110)
[2017-05-11 17:55] VITALS: BP 118/83
[2017-05-12] MEDS: LEVOTHYROXINE SODIUM 50 MCG TABLET PO SCH (07:00)
[2017-05-12] MEDS: FERROUS SULFATE 300 MG/5 ML LIQUID UDCUP PO SCH ×2 (07:07→17:08)
[2017-05-12 07:22] LABS: GLUCOSE,POINT OF CARE 108 MG/DL (70-110)
[2017-05-12 08:00] VITALS: BP 113/71
[2017-05-12] MEDS: DIVALPROEX SODIUM 500 MG DR TABLET PO SCH ×3 (08:46→17:07)
[2017-05-12] MEDS: GuanFACINE HCL 1 MG TABLET PO SCH ×2 (08:46→17:04)
[2017-05-12] MEDS: SULFAMETHOX/TRIMETH DS 800-160 MG/TABLET PO SCH ×2 (08:47→17:08)
[2017-05-12] MEDS: PANTOPRAZOLE SODIUM 40 MG DR TABLET PO SCH (08:47)
[2017-05-12] MEDS: SIMVASTATIN 20 MG TABLET PO SCH (08:48)
[2017-05-12] MEDS: RisperiDONE 0.5 MG TABLET PO SCH ×2 (08:48→17:07)
[2017-05-12] MEDS: HALOPERIDOL 5 MG TABLET PO PRN (08:48)
[2017-05-12] MEDS: ASPIRIN 81 MG EC TABLET PO SCH (08:48)
[2017-05-12] MEDS: MULTIVITAMINS WITH MINERALS, THERAPEUTIC TABLET PO SCH (08:50)
[2017-05-12] MEDS: ClonazePAM 1 MG TABLET PO SCH ×3 (08:50→17:07)
[2017-05-12] MEDS: LevETIRAcetam 250 MG TABLET PO SCH ×2 (08:50→17:07)
[2017-05-12] MEDS: QUEtiapine FUMARATE 200 MG TABLET PO SCH ×3 (08:50→17:07)
[2017-05-12] MEDS: OXYBUTYNIN CHLORIDE 5 MG ER TABLET PO SCH (09:00)
[2017-05-12] MEDS: NEOMYCIN/BACITRACIN/POLYMYXIN B 30 GM OINTMENT TP SCH ×2 (09:00→17:08)
[2017-05-12 09:53] LABS: BASOPHILS # (AUTO) 0.01 K/uL (0.00-0.20); BASOPHILS % (AUTO) 0.2 % (0.0-2.0); EOSINOPHILS % (AUTO) 1.62 % (1.0-6.0); HEMATOCRIT 33.4 % (36-46); HEMOGLOBIN 11.1 g/dL (12.0-16.0); LYMPHOCYTES # (AUTO) 2.9 K/uL (1.0-4.8); LYMPHOCYTES % (AUTO) 48.2 % (22.0-44.0); MEAN CORPUSCULAR HEMOGLOBIN 32.1 pg (26.0-34.0); MEAN CORPUSCULAR HGB CONC 33.3 G/dL (31.0-37.0); MEAN CORPUSCULAR VOLUME 96 fL (80-100); MONOCYTES # (AUTO) 0.4 K/uL (0.1-1.0); MONOCYTES % (AUTO) 7.4 % (2.0-9.0); NEUTROPHILS # (AUTO) 2.5 K/uL (1.8-7.7); NEUTROPHILS % (AUTO) 42.6 % (40.0-70.0); PLATELET COUNT (AUTO) 254 K/uL (150-450); RED BLOOD CELL COUNT(AUTO) 3.47 MIL/uL (4.00-5.20); RED CELL DISTRIBUTION WIDTH 14.2 % (11.5-14.5); WHITE BLOOD COUNT (AUTO) 5.9 K/uL (4.5-11.0)
[2017-05-12] MEDS: INSULIN ASPART 100 UNITS/ML SQ PRN ×2 (11:45→17:52)
[2017-05-12 12:07] LABS: GLUCOSE,POINT OF CARE 257 MG/DL (70-110)
[2017-05-12 16:47] LABS: GLUCOSE,POINT OF CARE 171 MG/DL (70-110)
[2017-05-12 18:00] VITALS: BP 17/81
[2017-05-13 06:28] LABS: GLUCOSE,POINT OF CARE 144 MG/DL (70-110)
[2017-05-13 06:40] VITALS: BP 105/74
[2017-05-13] MEDS: FERROUS SULFATE 300 MG/5 ML LIQUID UDCUP PO SCH ×2 (06:56→17:54)
[2017-05-13] MEDS: LEVOTHYROXINE SODIUM 50 MCG TABLET PO SCH (06:56)
[2017-05-13] MEDS: INSULIN ASPART 100 UNITS/ML SQ PRN ×4 (07:05→21:27)
[2017-05-13] MEDS: ClonazePAM 1 MG TABLET PO SCH ×3 (07:43→17:54)
[2017-05-13] MEDS: SIMVASTATIN 20 MG TABLET PO SCH (07:43)
[2017-05-13] MEDS: ASPIRIN 81 MG EC TABLET PO SCH (07:43)
[2017-05-13] MEDS: SULFAMETHOX/TRIMETH DS 800-160 MG/TABLET PO SCH ×2 (07:43→17:54)
[2017-05-13] MEDS: QUEtiapine FUMARATE 200 MG TABLET PO SCH ×3 (07:43→17:54)
[2017-05-13] MEDS: RisperiDONE 0.5 MG TABLET PO SCH ×2 (07:43→17:54)
[2017-05-13] MEDS: MULTIVITAMINS WITH MINERALS, THERAPEUTIC TABLET PO SCH (07:43)
[2017-05-13] MEDS: PANTOPRAZOLE SODIUM 40 MG DR TABLET PO SCH (07:43)
[2017-05-13] MEDS: DIVALPROEX SODIUM 500 MG DR TABLET PO SCH ×3 (07:43→17:54)
[2017-05-13] MEDS: LevETIRAcetam 250 MG TABLET PO SCH ×2 (07:44→17:54)
[2017-05-13] MEDS: GuanFACINE HCL 1 MG TABLET PO SCH ×2 (07:44→17:54)
[2017-05-13] MEDS: OXYBUTYNIN CHLORIDE 5 MG ER TABLET PO SCH (07:44)
[2017-05-13 08:00] VITALS: BP 117/65
[2017-05-13] MEDS: NEOMYCIN/BACITRACIN/POLYMYXIN B 30 GM OINTMENT TP SCH ×2 (09:23→17:55)
[2017-05-13 11:27] LABS: GLUCOSE,POINT OF CARE 166 MG/DL (70-110)
[2017-05-13] MEDS: ERYTHROMYCIN 0.5% 3.5 GM TUBE OPHTHALMIC OINTMENT OD SCH (17:57)
[2017-05-13 18:03] LABS: GLUCOSE,POINT OF CARE 205 MG/DL (70-110)
[2017-05-13 21:22] LABS: GLUCOSE,POINT OF CARE 163 MG/DL (70-110)
[2017-05-14 06:43] LABS: GLUCOSE COMMENT 1 Received Meds; GLUCOSE,POINT OF CARE 181 MG/DL (70-110)
[2017-05-14] MEDS: INSULIN ASPART 100 UNITS/ML SQ PRN ×2 (06:54→12:08)
[2017-05-14] MEDS: FERROUS SULFATE 300 MG/5 ML LIQUID UDCUP PO SCH ×2 (06:56→18:24)
[2017-05-14] MEDS: LEVOTHYROXINE SODIUM 50 MCG TABLET PO SCH (06:56)
[2017-05-14 08:00] VITALS: BP 110/76
[2017-05-14] MEDS: MULTIVITAMINS WITH MINERALS, THERAPEUTIC TABLET PO SCH (08:11)
[2017-05-14] MEDS: QUEtiapine FUMARATE 200 MG TABLET PO SCH ×3 (08:11→18:24)
[2017-05-14] MEDS: SIMVASTATIN 20 MG TABLET PO SCH (08:11)
[2017-05-14] MEDS: PANTOPRAZOLE SODIUM 40 MG DR TABLET PO SCH (08:11)
[2017-05-14] MEDS: ASPIRIN 81 MG EC TABLET PO SCH (08:11)
[2017-05-14] MEDS: RisperiDONE 0.5 MG TABLET PO SCH ×2 (08:11→18:24)
[2017-05-14] MEDS: GuanFACINE HCL 1 MG TABLET PO SCH ×2 (08:11→18:24)
[2017-05-14] MEDS: ClonazePAM 1 MG TABLET PO SCH ×3 (08:11→18:24)
[2017-05-14] MEDS: LevETIRAcetam 250 MG TABLET PO SCH ×2 (08:11→18:25)
[2017-05-14] MEDS: DIVALPROEX SODIUM 500 MG DR TABLET PO SCH ×3 (08:11→18:24)
[2017-05-14] MEDS: OXYBUTYNIN CHLORIDE 5 MG ER TABLET PO SCH (08:11)
[2017-05-14] MEDS: ERYTHROMYCIN 0.5% 3.5 GM TUBE OPHTHALMIC OINTMENT OD SCH (08:12)
[2017-05-14] MEDS: NEOMYCIN/BACITRACIN/POLYMYXIN B 30 GM OINTMENT TP SCH ×2 (08:13→18:25)
[2017-05-14] MEDS ORDERED: ERYTHROMYCIN 0.5% 3.5 GM TUBE OPHTHALMIC OINTMENT OS SCH (09:00)
[2017-05-14 11:22] LABS: GLUCOSE,POINT OF CARE 183 MG/DL (70-110)
[2017-05-14] MEDS: HALOPERIDOL 5 MG TABLET PO PRN (11:51)
[2017-05-14 17:00] VITALS: BP 112/73
[2017-05-15 03:04] VITALS: BP 100/60
[2017-05-15 06:38] LABS: GLUCOSE COMMENT 1 Received Meds; GLUCOSE,POINT OF CARE 185 MG/DL (70-110)
[2017-05-15] MEDS: LEVOTHYROXINE SODIUM 50 MCG TABLET PO SCH (06:51)
[2017-05-15] MEDS: INSULIN ASPART 100 UNITS/ML SQ PRN ×3 (06:51→22:04)
[2017-05-15] MEDS: FERROUS SULFATE 300 MG/5 ML LIQUID UDCUP PO SCH ×2 (06:51→21:40)
[2017-05-15] MEDS: MULTIVITAMINS WITH MINERALS, THERAPEUTIC TABLET PO SCH (07:47)
[2017-05-15] MEDS: PANTOPRAZOLE SODIUM 40 MG DR TABLET PO SCH (07:47)
[2017-05-15] MEDS: QUEtiapine FUMARATE 200 MG TABLET PO SCH ×3 (07:47→21:40)
[2017-05-15] MEDS: SIMVASTATIN 20 MG TABLET PO SCH (07:47)
[2017-05-15] MEDS: RisperiDONE 0.5 MG TABLET PO SCH ×2 (07:47→21:41)
[2017-05-15] MEDS: ClonazePAM 1 MG TABLET PO SCH ×3 (07:47→21:40)
[2017-05-15] MEDS: DIVALPROEX SODIUM 500 MG DR TABLET PO SCH ×3 (07:47→21:41)
[2017-05-15] MEDS: ASPIRIN 81 MG EC TABLET PO SCH (07:47)
[2017-05-15] MEDS: OXYBUTYNIN CHLORIDE 5 MG ER TABLET PO SCH (07:48)
[2017-05-15] MEDS: NEOMYCIN/BACITRACIN/POLYMYXIN B 30 GM OINTMENT TP SCH ×2 (07:48→21:42)
[2017-05-15] MEDS: ERYTHROMYCIN 0.5% 3.5 GM TUBE OPHTHALMIC OINTMENT OD SCH (07:48)
[2017-05-15] MEDS: LevETIRAcetam 250 MG TABLET PO SCH ×2 (07:48→21:41)
[2017-05-15] MEDS: GuanFACINE HCL 1 MG TABLET PO SCH ×2 (07:48→21:41)
[2017-05-15 08:00] VITALS: BP 108/71
[2017-05-15 11:58] LABS: GLUCOSE,POINT OF CARE 173 MG/DL (70-110)
[2017-05-15 18:36] VITALS: BP 115/78
[2017-05-15 21:52] LABS: GLUCOSE,POINT OF CARE 155 MG/DL (70-110)
[2017-05-16 06:51] LABS: GLUCOSE,POINT OF CARE 159 MG/DL (70-110)
[2017-05-16] MEDS: FERROUS SULFATE 300 MG/5 ML LIQUID UDCUP PO SCH ×2 (06:53→16:42)
[2017-05-16] MEDS: LEVOTHYROXINE SODIUM 50 MCG TABLET PO SCH (06:53)
[2017-05-16] MEDS: INSULIN ASPART 100 UNITS/ML SQ PRN ×3 (06:59→21:12)
[2017-05-16] MEDS: ERYTHROMYCIN 0.5% 3.5 GM TUBE OPHTHALMIC OINTMENT OD SCH (08:25)
[2017-05-16] MEDS: OXYBUTYNIN CHLORIDE 5 MG ER TABLET PO SCH (08:25)
[2017-05-16] MEDS: DIVALPROEX SODIUM 500 MG DR TABLET PO SCH ×3 (08:25→16:43)
[2017-05-16] MEDS: ASPIRIN 81 MG EC TABLET PO SCH (08:25)
[2017-05-16] MEDS: QUEtiapine FUMARATE 200 MG TABLET PO SCH ×3 (08:26→16:42)
[2017-05-16] MEDS: ClonazePAM 1 MG TABLET PO SCH ×3 (08:26→16:42)
[2017-05-16] MEDS: LevETIRAcetam 250 MG TABLET PO SCH ×2 (08:26→16:42)
[2017-05-16] MEDS: PANTOPRAZOLE SODIUM 40 MG DR TABLET PO SCH (08:26)
[2017-05-16] MEDS: RisperiDONE 0.5 MG TABLET PO SCH ×2 (08:26→16:43)
[2017-05-16] MEDS: GuanFACINE HCL 1 MG TABLET PO SCH ×2 (08:27→16:42)
[2017-05-16] MEDS: NEOMYCIN/BACITRACIN/POLYMYXIN B 30 GM OINTMENT TP SCH ×2 (08:27→16:43)
[2017-05-16] MEDS: SIMVASTATIN 20 MG TABLET PO SCH (08:27)
[2017-05-16] MEDS: MULTIVITAMINS WITH MINERALS, THERAPEUTIC TABLET PO SCH (08:27)
[2017-05-16 11:58] LABS: GLUCOSE,POINT OF CARE 98 MG/DL (70-110)
[2017-05-16] MEDS ORDERED: LEVE250T55 PO (12:46)
[2017-05-16] MEDS ORDERED: NEOM1OIN8 TP (12:46)
[2017-05-16] MEDS ORDERED: BACTDSB PO (12:46)
[2017-05-16] MEDS ORDERED: MULT-29 PO (12:46)
[2017-05-16] MEDS ORDERED: ERYT1OIN7 OD (12:46)
[2017-05-16] MEDS ORDERED: CLON1 PO (12:51)
[2017-05-16] MEDS ORDERED: RISP.5 PO (12:51)
[2017-05-16] MEDS ORDERED: QUET200T PO (12:51)
[2017-05-16] MEDS: SULFAMETHOX/TRIMETH DS 800-160 MG/TABLET PO SCH (16:42)
[2017-05-16 16:53] LABS: GLUCOSE,POINT OF CARE 147 MG/DL (70-110)
[2017-05-16 20:32] LABS: GLUCOSE,POINT OF CARE 186 MG/DL (70-110)
[2017-05-16] MEDS: ZOLPIDEM TARTRATE 10 MG TABLET PO PRN (22:50)
[2017-05-17 06:13] LABS: GLUCOSE COMMENT 1 Received Meds; GLUCOSE,POINT OF CARE 192 MG/DL (70-110)
[2017-05-17] MEDS: LEVOTHYROXINE SODIUM 50 MCG TABLET PO SCH (06:34)
[2017-05-17] MEDS: FERROUS SULFATE 300 MG/5 ML LIQUID UDCUP PO SCH (06:34)
[2017-05-17] MEDS: INSULIN ASPART 100 UNITS/ML SQ PRN ×2 (06:43→11:52)
[2017-05-17] MEDS: GuanFACINE HCL 1 MG TABLET PO SCH (09:07)
[2017-05-17] MEDS: SIMVASTATIN 20 MG TABLET PO SCH (09:08)
[2017-05-17] MEDS: ASPIRIN 81 MG EC TABLET PO SCH (09:08)
[2017-05-17] MEDS: DIVALPROEX SODIUM 500 MG DR TABLET PO SCH (09:08)
[2017-05-17] MEDS: LevETIRAcetam 250 MG TABLET PO SCH (09:09)
[2017-05-17] MEDS: SULFAMETHOX/TRIMETH DS 800-160 MG/TABLET PO SCH (09:09)
[2017-05-17] MEDS: RisperiDONE 0.5 MG TABLET PO SCH (09:09)
[2017-05-17] MEDS: OXYBUTYNIN CHLORIDE 5 MG ER TABLET PO SCH (09:09)
[2017-05-17] MEDS: MULTIVITAMINS WITH MINERALS, THERAPEUTIC TABLET PO SCH (09:09)
[2017-05-17] MEDS: PANTOPRAZOLE SODIUM 40 MG DR TABLET PO SCH (09:10)
[2017-05-17] MEDS: ClonazePAM 1 MG TABLET PO SCH (09:11)
[2017-05-17] MEDS: ERYTHROMYCIN 0.5% 3.5 GM TUBE OPHTHALMIC OINTMENT OD SCH (09:11)
[2017-05-17] MEDS: QUEtiapine FUMARATE 200 MG TABLET PO SCH (09:45)
[2017-05-17] MEDS: NEOMYCIN/BACITRACIN/POLYMYXIN B 30 GM OINTMENT TP SCH (09:45)
[2017-05-17 11:48] LABS: GLUCOSE,POINT OF CARE 160 MG/DL (70-110)
== END 2017-05-17 12:35 | disposition home or self-care (01) | DRG 750 ==
LOC: EMS 13:07 → 3EC 18:41
PROVIDERS: ADMIT Psychiatry & Neurology Psychiatry; ATTEND Psychiatry & Neurology Psychiatry
DX: F25.9 Schizoaffective disorder, unspecified (principal); E11.9 Type 2 diabetes mellitus without complications; I10 Essential (primary) hypertension; E03.9 Hypothyroidism, unspecified; D64.9 Anemia, unspecified; E78.5 Hyperlipidemia, unspecified; F31.9 Bipolar disorder, unspecified; G40.909 Epilepsy, unspecified, not intractable, without status epilepticus; R32 Unspecified urinary incontinence; Z79.4 Long term (current) use of insulin; F63.9 Impulse disorder, unspecified
CPT/HCPCS: 82962; 84439; 84443; 87070; 87205; 96372; 96374; 99285; G0480; J1200; J1630; J2060

== ENCOUNTER 2017-06-19 12:25 | Emergency (ER) | payer MEDICAID, OTHER ==
[~2017-06-19] VITALS: Ht 152.4 cm; Wt 70.5 kg
[~2017-06-19 12:25] MED LIST changes: -ARIP2 PO; +BACTDSB PO; -BENA5TAB26 PO; -CITA20TA9 PO; -CLON.5 PO; +CLON1 PO; +ERYT1OIN7 OD; -INSU100V12 SQ; -INSU100V3 SQ; +LEVE250T55 PO; -LEVO50 PO; -METF500T4 PO; +MULT-29 PO; +NEOM1OIN8 TP; -OLAN7.5T2 PO; -OXCA300T PO; -OXYB5XL PO; +QUET200T PO; +RISP.5 PO; -TOPI100T37 PO
[2017-06-19 12:27] VITALS: BP 118/94
[2017-06-19] MEDS ORDERED: CefTRIAXone SODIUM 1 GM/VIAL IM ONE (15:45)
[2017-06-19] MEDS ORDERED: LIDOCAINE HCL/PF 1% 2 ML VIAL IM ONE (15:45)
[2017-06-19] MEDS ORDERED: BACITRACIN 0.9 GM PACKET OINTMENT TP ONE (15:45)
== END 2017-06-19 17:38 | disposition home or self-care (01) ==
LOC: EMS 12:27
DX: L03.211 Cellulitis of face (principal); L08.9 Local infection of the skin and subcutaneous tissue, unspecified; E78.00 Pure hypercholesterolemia, unspecified; I10 Essential (primary) hypertension; E03.9 Hypothyroidism, unspecified; E78.5 Hyperlipidemia, unspecified
CPT/HCPCS: 82962; 96372; 99283; J0696; J3490

== ENCOUNTER 2017-06-29 13:08 | Emergency (ER) | payer OTHER ==
[~2017-06-29] VITALS: Ht 157.5 cm; Wt 68.2 kg
[2017-06-29 13:10] VITALS: BP 140/68
[2017-06-29 13:28] LABS: GLUCOSE,POINT OF CARE 310 MG/DL (70-110)
== END 2017-06-29 17:23 | disposition left against medical advice (07) ==
LOC: EMS 13:10
DX: T81.89XA Other complications of procedures, not elsewhere classified, initial encounter (principal); F31.9 Bipolar disorder, unspecified; E78.00 Pure hypercholesterolemia, unspecified; I10 Essential (primary) hypertension; E03.9 Hypothyroidism, unspecified; E11.9 Type 2 diabetes mellitus without complications; Z53.21 Procedure and treatment not carried out due to patient leaving prior to being seen by health care provider
CPT/HCPCS: 82962

== ENCOUNTER 2017-06-30 11:42 | Emergency (ER) | payer OTHER ==
[~2017-06-30] VITALS: Ht 147.3 cm; Wt 45.5 kg
[2017-06-30 11:50] VITALS: BP 118/74
[2017-06-30 12:04] LABS: GLUCOSE,POINT OF CARE 126 MG/DL (70-110)
== END 2017-06-30 16:36 | disposition left against medical advice (07) ==
LOC: EMS 11:43
DX: S01.80XA Unspecified open wound of other part of head, initial encounter (principal); E11.9 Type 2 diabetes mellitus without complications; I10 Essential (primary) hypertension; E03.9 Hypothyroidism, unspecified; E78.00 Pure hypercholesterolemia, unspecified; X58.XXXA Exposure to other specified factors, initial encounter; Y93.89 Activity, other specified; Y92.89 Other specified places as the place of occurrence of the external cause; Y99.8 Other external cause status; Z53.21 Procedure and treatment not carried out due to patient leaving prior to being seen by health care provider
CPT/HCPCS: 82962

== ENCOUNTER 2017-07-02 11:38 | Inpatient (IN) | payer MEDICAID, OTHER ==
[~2017-07-02] VITALS: Ht 147.3 cm; Wt 54.2 kg
[2017-07-02 13:46] LABS: BASOPHILS # (AUTO) 0.02 K/uL (0.00-0.20); BASOPHILS % (AUTO) 0.2 % (0.0-2.0); EOSINOPHILS % (AUTO) 0.04 % (1.0-6.0); HEMATOCRIT 31.4 % (36-46); HEMOGLOBIN 10.3 g/dL (12.0-16.0); LYMPHOCYTES # (AUTO) 4.5 K/uL (1.0-4.8); LYMPHOCYTES % (AUTO) 40.4 % (22.0-44.0); MEAN CORPUSCULAR VOLUME 97 fL (80-100); MONOCYTES # (AUTO) 0.7 K/uL (0.1-1.0); MONOCYTES % (AUTO) 6.5 % (2.0-9.0); NEUTROPHILS # (AUTO) 5.8 K/uL (1.8-7.7); NEUTROPHILS % (AUTO) 52.8 % (40.0-70.0); PLATELET COUNT (AUTO) 368 K/uL (150-450); RED BLOOD CELL COUNT(AUTO) 3.24 MIL/uL (4.00-5.20); RED CELL DISTRIBUTION WIDTH 16.1 % (11.5-14.5)
[2017-07-02 14:11] LABS: ANION GAP 6 mmol/L (8-16); CARBON DIOXIDE 29 mmol/L (22-29); CHLORIDE 107 mmol/L (98-107); CREATININE 0.61 mg/dL (0.60-1.30); GLOMERULAR FILTR. RATE CALC > 60 mL/min (>60); GLUCOSE,RANDOM 95 mg/dL (70-110); POTASSIUM 4.8 mmol/L (3.5-5.1); SODIUM SERUM 142 mmol/L (136-145); UREA NITROGEN, BLOOD 22 mg/dL (7-18)
[2017-07-02 14:21] LABS: ALANINE AMINOTRANSFERASE 18 U/L (12-78); ALBUMIN 2.4 g/dL (3.4-5.0); ALKALINE PHOSPHATASE 69 U/L (46-116); ASPARTATE AMINOTRANSFERASE 10 U/L (15-37); BILIRUBIN,TOTAL 0.2 mg/dL (0.1-1.0); TOTAL PROTEIN, SERUM 6.5 g/dL (6.4-8.2)
[2017-07-02] MEDS ORDERED: LORazepam 2 MG TABLET PO ONE (15:30)
[2017-07-02] MEDS ORDERED: BACITRACIN 0.9 GM PACKET OINTMENT TP ONE (15:30)
[2017-07-02] MEDS ORDERED: QUEtiapine FUMARATE 100 MG TABLET PO ONE (19:15)
[2017-07-02] MEDS ORDERED: LORazepam 2 MG/ML VIAL IM ONE (19:45)
[2017-07-02] MEDS ORDERED: DiphenhydrAMINE HCL 50 MG/ML VIAL IM ONE (19:45)
[2017-07-02] MEDS ORDERED: HALOPERIDOL LACTATE 5 MG/ML VIAL IM ONE (19:45)
[2017-07-02] MEDS: DIVALPROEX SODIUM 500 MG DR TABLET PO SCH (21:00)
[2017-07-02] MEDS: QUEtiapine FUMARATE 200 MG TABLET PO SCH (21:00)
[2017-07-02] MEDS: RisperiDONE 0.5 MG TABLET PO SCH (21:00)
[2017-07-02] MEDS: ClonazePAM 1 MG TABLET PO SCH (21:00)
[2017-07-03] MEDS: QUEtiapine FUMARATE 200 MG TABLET PO SCH ×4 (09:00→17:34)
[2017-07-03] MEDS: DIVALPROEX SODIUM 500 MG DR TABLET PO SCH ×4 (09:00→17:33)
[2017-07-03] MEDS: RisperiDONE 0.5 MG TABLET PO SCH ×3 (09:00→17:34)
[2017-07-03] MEDS: ClonazePAM 1 MG TABLET PO SCH ×4 (09:00→17:34)
[2017-07-03] MEDS: HALOPERIDOL 5 MG TABLET PO PRN (13:42)
[2017-07-03] MEDS: LORazepam 2 MG TABLET PO PRN (13:42)
[2017-07-03] MEDS: FERROUS SULFATE 325 MG EC TABLET PO SCH ×2 (16:42→17:34)
[2017-07-03] MEDS: LevETIRAcetam 250 MG TABLET PO SCH (16:42)
[2017-07-03] MEDS: NEOMYCIN/BACITRACIN/POLYMYXIN B 30 GM OINTMENT TP SCH (16:42)
[2017-07-03] MEDS: GuanFACINE HCL 1 MG TABLET PO SCH ×2 (16:42→17:33)
[2017-07-03] MEDS: SULFAMETHOX/TRIMETH DS 800-160 MG/TABLET PO SCH (17:34)
[2017-07-03 18:18] VITALS: BP 112/71
[2017-07-04] MEDS: LEVOTHYROXINE SODIUM 50 MCG TABLET PO SCH (07:00)
[2017-07-04] MEDS: FERROUS SULFATE 325 MG EC TABLET PO SCH ×2 (07:03→16:26)
[2017-07-04] MEDS: HALOPERIDOL 5 MG TABLET PO PRN (07:51)
[2017-07-04] MEDS: LORazepam 2 MG TABLET PO PRN (07:51)
[2017-07-04] MEDS: SIMVASTATIN 20 MG TABLET PO SCH (08:19)
[2017-07-04] MEDS: GuanFACINE HCL 1 MG TABLET PO SCH ×2 (08:19→16:26)
[2017-07-04] MEDS: ASPIRIN 81 MG CHEWABLE TABLET PO SCH (08:20)
[2017-07-04] MEDS: ClonazePAM 1 MG TABLET PO SCH ×3 (08:20→16:24)
[2017-07-04] MEDS: SULFAMETHOX/TRIMETH DS 800-160 MG/TABLET PO SCH ×2 (08:20→16:26)
[2017-07-04] MEDS: MULTIVITAMINS WITH MINERALS, THERAPEUTIC TABLET PO SCH (08:20)
[2017-07-04] MEDS: OXYBUTYNIN CHLORIDE 5 MG ER TABLET PO SCH (08:20)
[2017-07-04] MEDS: RisperiDONE 0.5 MG TABLET PO SCH ×2 (08:20→16:24)
[2017-07-04] MEDS: QUEtiapine FUMARATE 200 MG TABLET PO SCH ×3 (08:20→16:25)
[2017-07-04] MEDS: DIVALPROEX SODIUM 500 MG DR TABLET PO SCH ×3 (08:20→16:26)
[2017-07-04] MEDS: LevETIRAcetam 250 MG TABLET PO SCH ×2 (08:21→16:26)
[2017-07-04] MEDS: PANTOPRAZOLE SODIUM 40 MG DR TABLET PO SCH (08:21)
[2017-07-04] MEDS: NEOMYCIN/BACITRACIN/POLYMYXIN B 30 GM OINTMENT TP SCH ×2 (08:21→16:45)
[2017-07-04 09:50] VITALS: BP 132/92
[2017-07-04 16:03] VITALS: BP 123/81
[2017-07-05] MEDS: ZOLPIDEM TARTRATE 10 MG TABLET PO PRN (00:40)
[2017-07-05] MEDS: HALOPERIDOL 5 MG TABLET PO PRN (05:50)
[2017-07-05] MEDS: LORazepam 2 MG TABLET PO PRN (05:50)
[2017-07-05] MEDS: FERROUS SULFATE 325 MG EC TABLET PO SCH ×2 (06:43→17:41)
[2017-07-05] MEDS: LEVOTHYROXINE SODIUM 50 MCG TABLET PO SCH (06:43)
[2017-07-05 08:20] VITALS: BP 109/54
[2017-07-05] MEDS: SIMVASTATIN 20 MG TABLET PO SCH (08:44)
[2017-07-05] MEDS: ASPIRIN 81 MG CHEWABLE TABLET PO SCH (08:44)
[2017-07-05] MEDS: MULTIVITAMINS WITH MINERALS, THERAPEUTIC TABLET PO SCH (08:44)
[2017-07-05] MEDS: RisperiDONE 0.5 MG TABLET PO SCH ×2 (08:44→17:40)
[2017-07-05] MEDS: PANTOPRAZOLE SODIUM 40 MG DR TABLET PO SCH (08:44)
[2017-07-05] MEDS: SULFAMETHOX/TRIMETH DS 800-160 MG/TABLET PO SCH ×2 (08:44→17:40)
[2017-07-05] MEDS: DIVALPROEX SODIUM 500 MG DR TABLET PO SCH ×3 (08:44→17:39)
[2017-07-05] MEDS: GuanFACINE HCL 1 MG TABLET PO SCH ×2 (08:45→17:41)
[2017-07-05] MEDS: QUEtiapine FUMARATE 200 MG TABLET PO SCH ×3 (08:45→17:40)
[2017-07-05] MEDS: ClonazePAM 1 MG TABLET PO SCH ×3 (08:45→17:40)
[2017-07-05] MEDS: NEOMYCIN/BACITRACIN/POLYMYXIN B 30 GM OINTMENT TP SCH ×2 (08:45→17:46)
[2017-07-05] MEDS: OXYBUTYNIN CHLORIDE 5 MG ER TABLET PO SCH (08:46)
[2017-07-05] MEDS: LevETIRAcetam 250 MG TABLET PO SCH ×2 (08:46→17:40)
[2017-07-05 17:08] VITALS: BP 97/65
[2017-07-06] MEDS ORDERED: HALOPERIDOL LACTATE 5 MG/ML VIAL IM ONE (06:30)
[2017-07-06] MEDS ORDERED: LORazepam 2 MG/ML VIAL IM ONE (06:30)
[2017-07-06] MEDS: FERROUS SULFATE 325 MG EC TABLET PO SCH ×2 (06:38→17:01)
[2017-07-06] MEDS: LEVOTHYROXINE SODIUM 50 MCG TABLET PO SCH (06:38)
[2017-07-06] MEDS: DIVALPROEX SODIUM 500 MG DR TABLET PO SCH ×3 (09:17→17:01)
[2017-07-06] MEDS: ClonazePAM 1 MG TABLET PO SCH ×3 (09:17→17:00)
[2017-07-06] MEDS: LevETIRAcetam 250 MG TABLET PO SCH ×2 (09:17→16:59)
[2017-07-06] MEDS: OXYBUTYNIN CHLORIDE 5 MG ER TABLET PO SCH (09:17)
[2017-07-06] MEDS: ASPIRIN 81 MG CHEWABLE TABLET PO SCH (09:17)
[2017-07-06] MEDS: SULFAMETHOX/TRIMETH DS 800-160 MG/TABLET PO SCH ×2 (09:17→17:00)
[2017-07-06] MEDS: GuanFACINE HCL 1 MG TABLET PO SCH ×2 (09:18→17:04)
[2017-07-06] MEDS: SIMVASTATIN 20 MG TABLET PO SCH (09:18)
[2017-07-06] MEDS: MULTIVITAMINS WITH MINERALS, THERAPEUTIC TABLET PO SCH (09:18)
[2017-07-06] MEDS: RisperiDONE 0.5 MG TABLET PO SCH ×2 (09:18→17:01)
[2017-07-06] MEDS: QUEtiapine FUMARATE 200 MG TABLET PO SCH ×3 (09:18→16:59)
[2017-07-06] MEDS: PANTOPRAZOLE SODIUM 40 MG DR TABLET PO SCH (09:18)
[2017-07-06] MEDS: NEOMYCIN/BACITRACIN/POLYMYXIN B 30 GM OINTMENT TP SCH ×2 (09:19→17:03)
[2017-07-06 10:23] VITALS: BP 128/72
[2017-07-07] MEDS: LEVOTHYROXINE SODIUM 50 MCG TABLET PO SCH (07:01)
[2017-07-07] MEDS: FERROUS SULFATE 325 MG EC TABLET PO SCH ×2 (07:01→17:03)
[2017-07-07] MEDS: SULFAMETHOX/TRIMETH DS 800-160 MG/TABLET PO SCH ×2 (08:05→17:03)
[2017-07-07] MEDS: QUEtiapine FUMARATE 200 MG TABLET PO SCH ×3 (08:06→17:03)
[2017-07-07] MEDS: PANTOPRAZOLE SODIUM 40 MG DR TABLET PO SCH (08:06)
[2017-07-07] MEDS: DIVALPROEX SODIUM 500 MG DR TABLET PO SCH ×3 (08:06→17:04)
[2017-07-07] MEDS: RisperiDONE 0.5 MG TABLET PO SCH ×2 (08:06→17:03)
[2017-07-07] MEDS: MULTIVITAMINS WITH MINERALS, THERAPEUTIC TABLET PO SCH (08:07)
[2017-07-07] MEDS: SIMVASTATIN 20 MG TABLET PO SCH (08:07)
[2017-07-07] MEDS: ASPIRIN 81 MG CHEWABLE TABLET PO SCH (08:08)
[2017-07-07] MEDS: OXYBUTYNIN CHLORIDE 5 MG ER TABLET PO SCH (08:08)
[2017-07-07] MEDS: LevETIRAcetam 250 MG TABLET PO SCH ×2 (08:08→17:01)
[2017-07-07] MEDS: GuanFACINE HCL 1 MG TABLET PO SCH ×2 (08:08→17:01)
[2017-07-07] MEDS: ClonazePAM 1 MG TABLET PO SCH ×3 (08:08→17:04)
[2017-07-07] MEDS: NEOMYCIN/BACITRACIN/POLYMYXIN B 30 GM OINTMENT TP SCH ×2 (08:09→17:01)
[2017-07-07 08:33] VITALS: BP 126/72
[2017-07-08] MEDS: FERROUS SULFATE 325 MG EC TABLET PO SCH ×2 (06:33→18:00)
[2017-07-08] MEDS: LEVOTHYROXINE SODIUM 50 MCG TABLET PO SCH (06:33)
[2017-07-08] MEDS: RisperiDONE 0.5 MG TABLET PO SCH ×2 (08:24→17:55)
[2017-07-08] MEDS: SULFAMETHOX/TRIMETH DS 800-160 MG/TABLET PO SCH ×2 (08:24→17:55)
[2017-07-08] MEDS: MULTIVITAMINS WITH MINERALS, THERAPEUTIC TABLET PO SCH (08:24)
[2017-07-08] MEDS: QUEtiapine FUMARATE 200 MG TABLET PO SCH ×3 (08:24→17:55)
[2017-07-08] MEDS: NEOMYCIN/BACITRACIN/POLYMYXIN B 30 GM OINTMENT TP SCH ×2 (08:25→17:55)
[2017-07-08] MEDS: SIMVASTATIN 20 MG TABLET PO SCH (08:25)
[2017-07-08] MEDS: ClonazePAM 1 MG TABLET PO SCH ×3 (08:25→17:55)
[2017-07-08] MEDS: DIVALPROEX SODIUM 500 MG DR TABLET PO SCH ×3 (08:25→17:55)
[2017-07-08] MEDS: PANTOPRAZOLE SODIUM 40 MG DR TABLET PO SCH (08:25)
[2017-07-08] MEDS: ASPIRIN 81 MG CHEWABLE TABLET PO SCH (08:25)
[2017-07-08] MEDS: GuanFACINE HCL 1 MG TABLET PO SCH ×2 (08:26→17:55)
[2017-07-08] MEDS: LevETIRAcetam 250 MG TABLET PO SCH ×2 (08:26→17:55)
[2017-07-08] MEDS: OXYBUTYNIN CHLORIDE 5 MG ER TABLET PO SCH (08:26)
[2017-07-08 08:51] VITALS: BP 117/70
[2017-07-08] MEDS ORDERED: FERR-89 PO (11:03)
[2017-07-08 16:11] VITALS: BP 123/73
[2017-07-08 17:38] LABS: GLUCOMETER DEV NAME(LOC) 3EC; GLUCOSE,POINT OF CARE 211 MG/DL (70-110)
[2017-07-09] MEDS: FERROUS SULFATE 325 MG EC TABLET PO SCH ×2 (06:43→17:32)
[2017-07-09] MEDS: LEVOTHYROXINE SODIUM 50 MCG TABLET PO SCH (06:43)
[2017-07-09] MEDS: MULTIVITAMINS WITH MINERALS, THERAPEUTIC TABLET PO SCH (08:48)
[2017-07-09] MEDS: DIVALPROEX SODIUM 500 MG DR TABLET PO SCH ×3 (08:48→17:32)
[2017-07-09] MEDS: SIMVASTATIN 20 MG TABLET PO SCH (08:48)
[2017-07-09] MEDS: RisperiDONE 0.5 MG TABLET PO SCH ×2 (08:48→17:32)
[2017-07-09] MEDS: SULFAMETHOX/TRIMETH DS 800-160 MG/TABLET PO SCH ×2 (08:49→17:32)
[2017-07-09] MEDS: PANTOPRAZOLE SODIUM 40 MG DR TABLET PO SCH (08:49)
[2017-07-09] MEDS: QUEtiapine FUMARATE 200 MG TABLET PO SCH ×3 (08:49→17:32)
[2017-07-09] MEDS: ASPIRIN 81 MG CHEWABLE TABLET PO SCH (08:49)
[2017-07-09] MEDS: ClonazePAM 1 MG TABLET PO SCH ×3 (08:49→17:32)
[2017-07-09] MEDS: LevETIRAcetam 250 MG TABLET PO SCH ×2 (08:50→17:32)
[2017-07-09] MEDS: OXYBUTYNIN CHLORIDE 5 MG ER TABLET PO SCH (08:50)
[2017-07-09] MEDS: GuanFACINE HCL 1 MG TABLET PO SCH ×2 (08:50→17:33)
[2017-07-09] MEDS: NEOMYCIN/BACITRACIN/POLYMYXIN B 30 GM OINTMENT TP SCH ×2 (08:50→17:32)
[2017-07-09 10:56] VITALS: BP 118/48
[2017-07-09] MEDS: LORazepam 2 MG TABLET PO PRN (10:57)
[2017-07-09 16:16] VITALS: BP 114/76
[2017-07-10] MEDS: FERROUS SULFATE 325 MG EC TABLET PO SCH ×2 (06:49→18:18)
[2017-07-10] MEDS: LEVOTHYROXINE SODIUM 50 MCG TABLET PO SCH (06:49)
[2017-07-10 08:42] VITALS: BP 124/64
[2017-07-10] MEDS: DIVALPROEX SODIUM 500 MG DR TABLET PO SCH ×4 (09:00→18:19)
[2017-07-10] MEDS: SULFAMETHOX/TRIMETH DS 800-160 MG/TABLET PO SCH ×2 (09:24→18:20)
[2017-07-10] MEDS: RisperiDONE 0.5 MG TABLET PO SCH ×2 (09:24→18:20)
[2017-07-10] MEDS: GuanFACINE HCL 1 MG TABLET PO SCH ×2 (09:24→18:18)
[2017-07-10] MEDS: MULTIVITAMINS WITH MINERALS, THERAPEUTIC TABLET PO SCH (09:24)
[2017-07-10] MEDS: SIMVASTATIN 20 MG TABLET PO SCH (09:24)
[2017-07-10] MEDS: ClonazePAM 1 MG TABLET PO SCH ×3 (09:25→18:19)
[2017-07-10] MEDS: LevETIRAcetam 250 MG TABLET PO SCH ×2 (09:25→18:19)
[2017-07-10] MEDS: ASPIRIN 81 MG CHEWABLE TABLET PO SCH (09:25)
[2017-07-10] MEDS: PANTOPRAZOLE SODIUM 40 MG DR TABLET PO SCH (09:25)
[2017-07-10] MEDS: OXYBUTYNIN CHLORIDE 5 MG ER TABLET PO SCH (09:25)
[2017-07-10] MEDS: QUEtiapine FUMARATE 200 MG TABLET PO SCH ×3 (09:25→18:19)
[2017-07-10] MEDS: NEOMYCIN/BACITRACIN/POLYMYXIN B 30 GM OINTMENT TP SCH ×2 (09:26→18:22)
[2017-07-10] MEDS ORDERED: HALOPERIDOL LACTATE 5 MG/ML VIAL ONE (11:14)
[2017-07-10] MEDS ORDERED: LORazepam 2 MG/ML VIAL ONE (11:14)
[2017-07-10] MEDS ORDERED: DiphenhydrAMINE HCL 50 MG/ML VIAL ONE (11:14)
[2017-07-10] MEDS ORDERED: DiphenhydrAMINE HCL 50 MG/ML VIAL IM ONE (11:15)
[2017-07-10] MEDS ORDERED: HALOPERIDOL LACTATE 5 MG/ML VIAL IM ONE (11:15)
[2017-07-10] MEDS ORDERED: LORazepam 2 MG/ML VIAL IM ONE (11:15)
[2017-07-10 16:05] VITALS: BP 116/72
[2017-07-10] MEDS: ZOLPIDEM TARTRATE 10 MG TABLET PO PRN (20:13)
[2017-07-11] MEDS: LEVOTHYROXINE SODIUM 50 MCG TABLET PO SCH (07:00)
[2017-07-11] MEDS: FERROUS SULFATE 325 MG EC TABLET PO SCH ×2 (07:01→17:40)
[2017-07-11] MEDS: LevETIRAcetam 250 MG TABLET PO SCH ×2 (08:49→17:40)
[2017-07-11] MEDS: NEOMYCIN/BACITRACIN/POLYMYXIN B 30 GM OINTMENT TP SCH ×2 (08:50→17:42)
[2017-07-11] MEDS: GuanFACINE HCL 1 MG TABLET PO SCH ×2 (08:50→17:40)
[2017-07-11] MEDS: OXYBUTYNIN CHLORIDE 5 MG ER TABLET PO SCH (08:50)
[2017-07-11] MEDS: RisperiDONE 0.5 MG TABLET PO SCH ×2 (08:55→17:42)
[2017-07-11] MEDS: QUEtiapine FUMARATE 200 MG TABLET PO SCH ×3 (08:55→17:41)
[2017-07-11] MEDS: SULFAMETHOX/TRIMETH DS 800-160 MG/TABLET PO SCH ×2 (08:55→17:40)
[2017-07-11] MEDS: MULTIVITAMINS WITH MINERALS, THERAPEUTIC TABLET PO SCH (08:55)
[2017-07-11] MEDS: HALOPERIDOL 5 MG TABLET PO PRN ×2 (08:55→17:44)
[2017-07-11] MEDS: LORazepam 2 MG TABLET PO PRN ×2 (08:55→17:44)
[2017-07-11] MEDS: SIMVASTATIN 20 MG TABLET PO SCH (08:56)
[2017-07-11] MEDS: DIVALPROEX SODIUM 500 MG DR TABLET PO SCH ×3 (08:56→17:41)
[2017-07-11] MEDS: PANTOPRAZOLE SODIUM 40 MG DR TABLET PO SCH (08:56)
[2017-07-11] MEDS: ClonazePAM 1 MG TABLET PO SCH ×3 (08:56→17:41)
[2017-07-11] MEDS: ASPIRIN 81 MG CHEWABLE TABLET PO SCH (08:57)
[2017-07-11 10:11] VITALS: BP 112/76
[2017-07-11 16:00] VITALS: BP 110/72
[2017-07-12] MEDS: LEVOTHYROXINE SODIUM 50 MCG TABLET PO SCH (06:57)
[2017-07-12] MEDS: FERROUS SULFATE 325 MG EC TABLET PO SCH ×2 (06:57→18:00)
[2017-07-12] MEDS: SULFAMETHOX/TRIMETH DS 800-160 MG/TABLET PO SCH (08:03)
[2017-07-12] MEDS: OXYBUTYNIN CHLORIDE 5 MG ER TABLET PO SCH (08:03)
[2017-07-12] MEDS: ASPIRIN 81 MG CHEWABLE TABLET PO SCH (08:03)
[2017-07-12] MEDS: DIVALPROEX SODIUM 500 MG DR TABLET PO SCH ×3 (08:03→17:55)
[2017-07-12] MEDS: QUEtiapine FUMARATE 200 MG TABLET PO SCH ×3 (08:04→17:55)
[2017-07-12] MEDS: RisperiDONE 0.5 MG TABLET PO SCH ×2 (08:04→17:55)
[2017-07-12] MEDS: LevETIRAcetam 250 MG TABLET PO SCH ×2 (08:04→17:55)
[2017-07-12] MEDS: ClonazePAM 1 MG TABLET PO SCH ×3 (08:04→17:55)
[2017-07-12] MEDS: PANTOPRAZOLE SODIUM 40 MG DR TABLET PO SCH (08:04)
[2017-07-12] MEDS: GuanFACINE HCL 1 MG TABLET PO SCH ×2 (08:04→17:55)
[2017-07-12] MEDS: MULTIVITAMINS WITH MINERALS, THERAPEUTIC TABLET PO SCH (08:05)
[2017-07-12 08:17] VITALS: BP 121/68
[2017-07-12] MEDS: SIMVASTATIN 20 MG TABLET PO SCH (08:37)
[2017-07-12] MEDS: NEOMYCIN/BACITRACIN/POLYMYXIN B 30 GM OINTMENT TP SCH ×2 (09:51→17:55)
[2017-07-12 16:30] VITALS: BP 127/63
[2017-07-13] MEDS: FERROUS SULFATE 325 MG EC TABLET PO SCH ×2 (06:44→16:50)
[2017-07-13] MEDS: LEVOTHYROXINE SODIUM 50 MCG TABLET PO SCH (06:44)
[2017-07-13] MEDS: LevETIRAcetam 250 MG TABLET PO SCH ×2 (08:05→16:51)
[2017-07-13] MEDS: OXYBUTYNIN CHLORIDE 5 MG ER TABLET PO SCH (08:05)
[2017-07-13] MEDS: DIVALPROEX SODIUM 500 MG DR TABLET PO SCH ×3 (08:05→16:51)
[2017-07-13] MEDS: SIMVASTATIN 20 MG TABLET PO SCH (08:06)
[2017-07-13] MEDS: ASPIRIN 81 MG CHEWABLE TABLET PO SCH (08:06)
[2017-07-13] MEDS: PANTOPRAZOLE SODIUM 40 MG DR TABLET PO SCH (08:06)
[2017-07-13] MEDS: QUEtiapine FUMARATE 200 MG TABLET PO SCH ×3 (08:06→16:50)
[2017-07-13] MEDS: ClonazePAM 1 MG TABLET PO SCH ×3 (08:06→16:50)
[2017-07-13] MEDS: RisperiDONE 0.5 MG TABLET PO SCH ×2 (08:06→16:51)
[2017-07-13] MEDS: MULTIVITAMINS WITH MINERALS, THERAPEUTIC TABLET PO SCH (08:06)
[2017-07-13] MEDS: GuanFACINE HCL 1 MG TABLET PO SCH ×2 (08:06→16:50)
[2017-07-13] MEDS: NEOMYCIN/BACITRACIN/POLYMYXIN B 30 GM OINTMENT TP SCH (08:07)
[2017-07-13 09:01] VITALS: BP 106/65
[2017-07-13 16:00] VITALS: BP 110/62
[2017-07-14] MEDS: LEVOTHYROXINE SODIUM 50 MCG TABLET PO SCH (07:07)
[2017-07-14] MEDS: FERROUS SULFATE 325 MG EC TABLET PO SCH ×2 (07:07→17:36)
[2017-07-14] MEDS: QUEtiapine FUMARATE 200 MG TABLET PO SCH ×4 (08:35→17:37)
[2017-07-14] MEDS: GuanFACINE HCL 1 MG TABLET PO SCH ×2 (08:35→17:37)
[2017-07-14] MEDS: MULTIVITAMINS WITH MINERALS, THERAPEUTIC TABLET PO SCH (08:35)
[2017-07-14] MEDS: DIVALPROEX SODIUM 500 MG DR TABLET PO SCH ×4 (08:35→17:36)
[2017-07-14] MEDS: PANTOPRAZOLE SODIUM 40 MG DR TABLET PO SCH (08:35)
[2017-07-14] MEDS: LevETIRAcetam 250 MG TABLET PO SCH ×2 (08:35→17:36)
[2017-07-14] MEDS: RisperiDONE 0.5 MG TABLET PO SCH ×2 (08:35→17:36)
[2017-07-14] MEDS: ClonazePAM 1 MG TABLET PO SCH ×4 (08:35→17:36)
[2017-07-14] MEDS: SIMVASTATIN 20 MG TABLET PO SCH (08:35)
[2017-07-14] MEDS: ASPIRIN 81 MG CHEWABLE TABLET PO SCH (08:36)
[2017-07-14] MEDS: OXYBUTYNIN CHLORIDE 5 MG ER TABLET PO SCH (08:36)
[2017-07-14 09:32] VITALS: BP 102/73
[2017-07-14 16:00] VITALS: BP 102/74
[2017-07-15] MEDS: LEVOTHYROXINE SODIUM 50 MCG TABLET PO SCH (07:00)
[2017-07-15] MEDS: FERROUS SULFATE 325 MG EC TABLET PO SCH (07:14)
[2017-07-15] MEDS: ASPIRIN 81 MG CHEWABLE TABLET PO SCH (08:07)
[2017-07-15] MEDS: DIVALPROEX SODIUM 500 MG DR TABLET PO SCH ×2 (08:08→12:36)
[2017-07-15] MEDS: PANTOPRAZOLE SODIUM 40 MG DR TABLET PO SCH (08:08)
[2017-07-15] MEDS: MULTIVITAMINS WITH MINERALS, THERAPEUTIC TABLET PO SCH (08:08)
[2017-07-15] MEDS: RisperiDONE 0.5 MG TABLET PO SCH (08:08)
[2017-07-15] MEDS: QUEtiapine FUMARATE 200 MG TABLET PO SCH ×2 (08:08→12:36)
[2017-07-15] MEDS: LevETIRAcetam 250 MG TABLET PO SCH (08:08)
[2017-07-15] MEDS: ClonazePAM 1 MG TABLET PO SCH ×2 (08:08→12:36)
[2017-07-15] MEDS: GuanFACINE HCL 1 MG TABLET PO SCH (08:08)
[2017-07-15] MEDS: SIMVASTATIN 20 MG TABLET PO SCH (08:08)
[2017-07-15] MEDS: OXYBUTYNIN CHLORIDE 5 MG ER TABLET PO SCH (08:08)
[2017-07-15 08:16] VITALS: BP 126/87
[2017-07-15] MEDS ORDERED: MULTIVITAMINS WITH MINERALS, THERAPEUTIC TABLET PO SCH (09:00)
== END 2017-07-15 13:00 | disposition home or self-care (01) | DRG 750 ==
LOC: EMS 11:41 → 3EC 22:30
PROVIDERS: ADMIT Psychiatry & Neurology Psychiatry; ATTEND Psychiatry & Neurology Psychiatry
DX: F25.9 Schizoaffective disorder, unspecified (principal); E11.9 Type 2 diabetes mellitus without complications; I10 Essential (primary) hypertension; E03.9 Hypothyroidism, unspecified; D64.9 Anemia, unspecified; E78.5 Hyperlipidemia, unspecified; F31.9 Bipolar disorder, unspecified; E78.00 Pure hypercholesterolemia, unspecified; F41.9 Anxiety disorder, unspecified; F79 Unspecified intellectual disabilities; G40.909 Epilepsy, unspecified, not intractable, without status epilepticus; R32 Unspecified urinary incontinence; Z79.4 Long term (current) use of insulin; Z79.899 Other long term (current) drug therapy
CPT/HCPCS: 82962; 96372; 99285; G0480; J1200; J1630; J2060

== ENCOUNTER 2017-10-24 12:28 | Emergency (ER) | payer MEDICAID, OTHER ==
[~2017-10-24] VITALS: Ht 157.5 cm; Wt 52.3 kg
[~2017-10-24 12:28] MED LIST changes: -ASPI81TA33 PO; +ASPI81TA87 PO; -BACTDSB PO; -ERYT1OIN7 OD; +FERR-89 PO; -FERSL PO; -NEOM1OIN8 TP
[2017-10-24] MEDS ORDERED: LORazepam 1 MG TABLET PO ONE (14:30)
[2017-10-24] MEDS ORDERED: MUPIROCIN CALCIUM 2% 15 GM CREAM TP ONE (14:30)
[2017-10-24 15:45] VITALS: BP 105/80
[2017-10-29] MEDS ORDERED: METF500T4 PO (21:16)
[2017-10-29] MEDS ORDERED: DIVA500T35 PO (21:16)
[2017-10-29] MEDS ORDERED: OXCA300T PO (21:16)
[2017-10-29] MEDS ORDERED: VIST50 PO (21:16)
[2017-10-29] MEDS ORDERED: ZIPR60CA2 PO (21:16)
[2017-10-29] MEDS ORDERED: HYPR15DR23 OU (21:16)
[2017-10-29] MEDS ORDERED: NEO/3.5O18 OU (21:16)
[2017-10-29] MEDS ORDERED: LORA10TA7 PO (21:16)
[2017-10-29] MEDS ORDERED: [UNRECOGNIZED DRUG - OTHER] PO (21:16)
[2017-10-29] MEDS ORDERED: SERT100T12 PO (21:16)
[2017-10-29] MEDS ORDERED: BENA5TAB26 PO (21:16)
[2017-10-29] MEDS ORDERED: MUPI15CR TP (21:16)
[2017-10-29] MEDS ORDERED: TOPI100T37 PO (21:16)
== END 2017-10-24 16:14 | disposition home or self-care (01) ==
LOC: EMS 12:29
DX: L08.9 Local infection of the skin and subcutaneous tissue, unspecified (principal); E11.9 Type 2 diabetes mellitus without complications; E03.9 Hypothyroidism, unspecified; F32.9 Major depressive disorder, single episode, unspecified; E78.00 Pure hypercholesterolemia, unspecified; I10 Essential (primary) hypertension; Z79.82 Long term (current) use of aspirin
CPT/HCPCS: 99283

== ENCOUNTER 2018-03-04 08:53 | Inpatient (IN) | payer MEDICAID, OTHER ==
[~2018-03-04] VITALS: Ht 147.3 cm; Wt 56.2 kg
[~2018-03-04 08:53] MED LIST changes: +ASCO500 PO; +BENA5TAB26 PO; -CLON1 PO; +DIVA-78 PO; -DIVA500T35 PO; +HALO10 PO; +HYPR15DR23 OD; +LIDO5CRE2 TP; +LORA10TA7 PO; +METF-960 PO; -RISP.5 PO; +TOPI100T37 PO
[2018-03-04 10:05] LABS: BASOPHILS % (AUTO) 0.9 % (0.0-2.0); EOSINOPHILS % (AUTO) 0.1 % (1.0-6.0); HEMATOCRIT 36.1 % (36-46); HEMOGLOBIN 12.1 g/dL (12.0-16.0); LYMPHOCYTES # (AUTO) 2.1 K/uL (1.0-4.8); MEAN CORPUSCULAR HEMOGLOBIN 31.4 pg (26.0-34.0); MEAN CORPUSCULAR HGB CONC 33.6 G/dL (31.0-37.0); MEAN CORPUSCULAR VOLUME 93 fL (80-100); MONOCYTES # (AUTO) 0.7 K/uL (0.1-1.0); MONOCYTES % (AUTO) 9.7 % (2.0-9.0); NEUTROPHILS # (AUTO) 4.7 K/uL (1.8-7.7); NEUTROPHILS % (AUTO) 62.3 % (40.0-70.0); PLATELET COUNT (AUTO) 112 K/uL (150-450); RED BLOOD CELL COUNT(AUTO) 3.86 MIL/uL (4.00-5.20); RED CELL DISTRIBUTION WIDTH 14.1 % (11.5-14.5)
[2018-03-04 10:16] LABS: ANION GAP 12 mmol/L (8-16); CALCIUM, TOTAL 9.6 mg/dL (8.8-10.5); CARBON DIOXIDE 22 mmol/L (22-29); CHLORIDE 106 mmol/L (98-107); CREATININE 0.84 mg/dL (0.60-1.30); GLOMERULAR FILTR. RATE CALC > 60 mL/min (>60); GLUCOSE,RANDOM 241 mg/dL (70-110); POTASSIUM 3.7 mmol/L (3.5-5.1); SODIUM SERUM 140 mmol/L (136-145); UREA NITROGEN, BLOOD 26 mg/dL (7-18)
[2018-03-04 10:22] LABS: ALANINE AMINOTRANSFERASE 16 U/L (12-78); ALBUMIN 2.9 g/dL (3.4-5.0); ALKALINE PHOSPHATASE 85 U/L (46-116); ASPARTATE AMINOTRANSFERASE 13 U/L (15-37); BILIRUBIN,TOTAL 0.1 mg/dL (0.1-1.0); TOTAL PROTEIN, SERUM 6.9 g/dL (6.4-8.2)
[2018-03-04 10:56] LABS: AMPHET/METH SCREEN,URINE NEGATIVE (NEGATIVE); BARBITURATE SCREEN, URINE NEGATIVE (NEGATIVE); BENZODIAZEPINES SCREEN,URINE NEGATIVE (NEGATIVE); CANNABINOID SCREEN,URINE NEGATIVE (NEGATIVE); COCAINE SCREEN,URINE NEGATIVE (NEGATIVE); METHADONE SCREEN, URINE NEGATIVE (NEGATIVE); OPIATE SCREEN,URINE NEGATIVE (NEGATIVE)
[2018-03-04 10:58] LABS: PHENCYCLIDINE SCREEN,URINE NEGATIVE (NEGATIVE)
[2018-03-04] MEDS: QUEtiapine FUMARATE 100 MG TABLET PO ONE ×3 (12:45→14:00)
[2018-03-04] MEDS: DIVALPROEX SODIUM 500 MG ER TABLET PO ONE ×3 (12:45→14:00)
[2018-03-04] MEDS: MetFORMIN HCL 500 MG TABLET PO ONE ×3 (12:45→14:00)
[2018-03-04] MEDS ORDERED: DiphenhydrAMINE HCL 50 MG/ML VIAL IM ONE (13:00)
[2018-03-04] MEDS ORDERED: HALOPERIDOL LACTATE 5 MG/ML VIAL IM ONE (13:00)
[2018-03-04] MEDS ORDERED: LORazepam 2 MG/ML VIAL IM ONE (13:00)
[2018-03-04 22:44] LABS: GLUCOSE,POINT OF CARE 175 MG/DL (70-110)
[2018-03-05 02:40] VITALS: BP 142/88
[2018-03-05 05:49] LABS: GLUCOMETER DEV NAME(LOC) 3EI C; GLUCOSE,POINT OF CARE 184 MG/DL (70-110)
[2018-03-05 09:47] VITALS: BP 129/59
[2018-03-05 11:53] LABS: GLUCOMETER DEV NAME(LOC) 3EI C; GLUCOSE,POINT OF CARE 205 MG/DL (70-110)
[2018-03-05] MEDS ORDERED: LOPERAMIDE HCL 2 MG CAPSULE PO PRN (14:45)
[2018-03-05] MEDS ORDERED: ONDANSETRON HCL 4 MG TABLET PO PRN (14:45)
[2018-03-05] MEDS ORDERED: CloNIDine HCL 0.1 MG TABLET PO PRN (14:45)
[2018-03-05] MEDS ORDERED: INSULIN LISPRO 100 UNITS/ML SQ PRN (14:45)
[2018-03-05] MEDS ORDERED: ALBUTEROL SULFATE HFA 90 MCG/PUFF 8 GM INHALER IH PRN (14:45)
[2018-03-05] MEDS ORDERED: ACETAMINOPHEN 325 MG TABLET PO PRN (14:45)
[2018-03-05] MEDS ORDERED: BENZOCAINE/MENTHOL LOZENGE MM PRN (14:45)
[2018-03-05] MEDS ORDERED: MAG HYDROX/AL HYDROX/SIMETH ES 30 ML SUSPENSION UDCUP PO PRN (14:45)
[2018-03-05] MEDS ORDERED: PETROLATUM,WHITE 28 GM JELLY TP PRN (14:45)
[2018-03-05] MEDS ORDERED: GLUCAGON,HUMAN RECOMBINANT 1 MG VIAL IM PRN (14:45)
[2018-03-05] MEDS ORDERED: DEXTROSE 50%-WATER 25 GM/50 ML SYRINGE IVP PRN (15:00)
[2018-03-05] MEDS: LORazepam 2 MG TABLET PO PRN (16:40)
[2018-03-05] MEDS: LevETIRAcetam 250 MG TABLET PO SCH (17:00)
[2018-03-05] MEDS: HYPROMELLOSE 0.5% 15 ML OPHTHALMIC SOLUTION OD SCH (17:00)
[2018-03-05] MEDS: DIVALPROEX SODIUM 500 MG DR TABLET PO SCH (17:00)
[2018-03-05 17:09] VITALS: BP 132/68
[2018-03-05] MEDS: FERROUS SULFATE 325 MG EC TABLET PO SCH (17:30)
[2018-03-05] MEDS: MetFORMIN HCL 500 MG TABLET PO SCH (17:30)
[2018-03-06] MEDS ORDERED: PNEUMOCOCCAL VACCINE POLYVALENT 0.5 ML VIAL [PPSV23] IM ONE (06:00)
[2018-03-06] MEDS ORDERED: -PHARMACY VACCINE NOTE- MISC ONE (06:00)
[2018-03-06 06:09] LABS: GLUCOMETER DEV NAME(LOC) 3EI C; GLUCOSE,POINT OF CARE 213 MG/DL (70-110)
[2018-03-06] MEDS: MetFORMIN HCL 500 MG TABLET PO SCH ×2 (06:54→18:30)
[2018-03-06] MEDS: FERROUS SULFATE 325 MG EC TABLET PO SCH ×2 (06:54→18:30)
[2018-03-06] MEDS: INSULIN LISPRO 100 UNITS/ML SQ PRN ×3 (07:15→22:01)
[2018-03-06] MEDS: LORATADINE 10 MG TABLET PO SCH (08:19)
[2018-03-06] MEDS: LevETIRAcetam 250 MG TABLET PO SCH ×2 (08:19→18:00)
[2018-03-06] MEDS: DOCUSATE SODIUM 100 MG CAPSULE PO SCH (08:19)
[2018-03-06] MEDS: OMEPRAZOLE 20 MG CAPSULE PO SCH (08:19)
[2018-03-06] MEDS: BENAZEPRIL HCL 5 MG TABLET PO SCH (08:19)
[2018-03-06] MEDS: HYPROMELLOSE 0.5% 15 ML OPHTHALMIC SOLUTION OD SCH ×3 (08:19→18:00)
[2018-03-06] MEDS: DIVALPROEX SODIUM 500 MG DR TABLET PO SCH ×2 (08:19→18:00)
[2018-03-06] MEDS: ASCORBIC ACID 500 MG TABLET PO SCH (08:19)
[2018-03-06 08:30] VITALS: BP 149/75
[2018-03-06] MEDS ORDERED: DiphenhydrAMINE HCL 50 MG/ML VIAL IM ONE (10:45)
[2018-03-06] MEDS ORDERED: HALOPERIDOL LACTATE 5 MG/ML VIAL IM ONE (10:45)
[2018-03-06] MEDS ORDERED: HALOPERIDOL LACTATE 5 MG/ML VIAL ONE (10:45)
[2018-03-06] MEDS ORDERED: LORazepam 2 MG/ML VIAL ONE (10:45)
[2018-03-06] MEDS ORDERED: LORazepam 2 MG/ML VIAL IM ONE (10:45)
[2018-03-06] MEDS ORDERED: DiphenhydrAMINE HCL 50 MG/ML VIAL ONE (10:45)
[2018-03-06 16:12] VITALS: BP 120/76
[2018-03-06 17:19] LABS: GLUCOMETER DEV NAME(LOC) 3EI C; GLUCOSE,POINT OF CARE 196 MG/DL (70-110)
[2018-03-06 22:04] LABS: GLUCOMETER DEV NAME(LOC) 3EI C; GLUCOSE,POINT OF CARE 195 MG/DL (70-110)
[2018-03-07] MEDS: ZOLPIDEM TARTRATE 10 MG TABLET PO PRN (01:43)
[2018-03-07 01:48] VITALS: BP 124/75
[2018-03-07 06:19] LABS: GLUCOMETER DEV NAME(LOC) 3EI C; GLUCOSE,POINT OF CARE 189 MG/DL (70-110)
[2018-03-07] MEDS: MetFORMIN HCL 500 MG TABLET PO SCH ×2 (06:50→17:37)
[2018-03-07] MEDS: FERROUS SULFATE 325 MG EC TABLET PO SCH ×2 (06:50→17:37)
[2018-03-07] MEDS: INSULIN LISPRO 100 UNITS/ML SQ PRN ×3 (06:52→21:31)
[2018-03-07 08:00] VITALS: BP 149/97
[2018-03-07] MEDS: DOCUSATE SODIUM 100 MG CAPSULE PO SCH (08:31)
[2018-03-07] MEDS: OMEPRAZOLE 20 MG CAPSULE PO SCH (08:32)
[2018-03-07] MEDS: HYPROMELLOSE 0.5% 15 ML OPHTHALMIC SOLUTION OD SCH ×3 (08:32→17:36)
[2018-03-07] MEDS: DIVALPROEX SODIUM 500 MG DR TABLET PO SCH ×2 (08:32→17:37)
[2018-03-07] MEDS: ASCORBIC ACID 500 MG TABLET PO SCH (08:32)
[2018-03-07] MEDS: HALOPERIDOL 5 MG TABLET PO PRN (08:32)
[2018-03-07] MEDS: LORazepam 2 MG TABLET PO PRN (08:32)
[2018-03-07] MEDS: LevETIRAcetam 250 MG TABLET PO SCH ×2 (08:32→17:37)
[2018-03-07] MEDS: LORATADINE 10 MG TABLET PO SCH (08:32)
[2018-03-07] MEDS: BENAZEPRIL HCL 5 MG TABLET PO SCH (08:32)
[2018-03-07] MEDS ORDERED: HALOPERIDOL LACTATE 5 MG/ML VIAL IM ONE (09:45)
[2018-03-07] MEDS ORDERED: DiphenhydrAMINE HCL 50 MG/ML VIAL IM ONE (09:45)
[2018-03-07] MEDS ORDERED: LORazepam 2 MG/ML VIAL IM ONE (09:45)
[2018-03-07] MEDS ORDERED: QUEtiapine FUMARATE 300 MG TABLET ONE (09:58)
[2018-03-07] MEDS ORDERED: QUEtiapine FUMARATE 100 MG TABLET ONE (09:58)
[2018-03-07] MEDS: QUEtiapine FUMARATE 200 MG TABLET PO SCH ×2 (10:15→21:16)
[2018-03-07 11:23] LABS: GLUCOMETER DEV NAME(LOC) 3EI C; GLUCOSE,POINT OF CARE 200 MG/DL (70-110)
[2018-03-07] MEDS: TOPIRAMATE 100 MG TABLET PO SCH ×2 (12:25→17:37)
[2018-03-07 18:49] VITALS: BP 121/73
[2018-03-07] MEDS ORDERED: QUEtiapine FUMARATE 200 MG TABLET PO SCH (21:00)
[2018-03-07 21:39] LABS: GLUCOMETER DEV NAME(LOC) 3EI C; GLUCOSE,POINT OF CARE 154 MG/DL (70-110)
[2018-03-08 05:44] LABS: GLUCOMETER DEV NAME(LOC) 3EI C; GLUCOSE,POINT OF CARE 112 MG/DL (70-110)
[2018-03-08] MEDS: MetFORMIN HCL 500 MG TABLET PO SCH ×2 (06:40→17:43)
[2018-03-08] MEDS: FERROUS SULFATE 325 MG EC TABLET PO SCH ×2 (06:40→17:43)
[2018-03-08] MEDS: HYPROMELLOSE 0.5% 15 ML OPHTHALMIC SOLUTION OD SCH ×3 (09:00→17:43)
[2018-03-08] MEDS: ASCORBIC ACID 500 MG TABLET PO SCH (10:59)
[2018-03-08] MEDS: DIVALPROEX SODIUM 500 MG DR TABLET PO SCH ×2 (10:59→17:43)
[2018-03-08] MEDS: LORATADINE 10 MG TABLET PO SCH (10:59)
[2018-03-08] MEDS: LevETIRAcetam 250 MG TABLET PO SCH ×2 (10:59→17:44)
[2018-03-08] MEDS: OMEPRAZOLE 20 MG CAPSULE PO SCH (10:59)
[2018-03-08] MEDS: BENAZEPRIL HCL 5 MG TABLET PO SCH (11:00)
[2018-03-08] MEDS: TOPIRAMATE 100 MG TABLET PO SCH ×3 (11:00→17:44)
[2018-03-08] MEDS: DOCUSATE SODIUM 100 MG CAPSULE PO SCH (11:00)
[2018-03-08] MEDS: QUEtiapine FUMARATE 200 MG TABLET PO SCH ×2 (11:00→20:39)
[2018-03-08] MEDS: INSULIN LISPRO 100 UNITS/ML SQ PRN ×3 (11:40→20:47)
[2018-03-08 11:54] LABS: GLUCOMETER DEV NAME(LOC) 3EI C; GLUCOSE,POINT OF CARE 241 MG/DL (70-110)
[2018-03-08 16:26] VITALS: BP 128/79
[2018-03-08 16:54] LABS: GLUCOMETER DEV NAME(LOC) 3EI C; GLUCOSE,POINT OF CARE 249 MG/DL (70-110)
[2018-03-08] MEDS: ZOLPIDEM TARTRATE 10 MG TABLET PO PRN (20:40)
[2018-03-08 20:54] LABS: GLUCOMETER DEV NAME(LOC) 3EI C; GLUCOSE,POINT OF CARE 255 MG/DL (70-110)
[2018-03-09 06:14] LABS: GLUCOMETER DEV NAME(LOC) 3EI C; GLUCOSE,POINT OF CARE 186 MG/DL (70-110)
[2018-03-09] MEDS: FERROUS SULFATE 325 MG EC TABLET PO SCH ×2 (06:32→16:47)
[2018-03-09] MEDS: MetFORMIN HCL 500 MG TABLET PO SCH ×2 (06:32→16:47)
[2018-03-09] MEDS: INSULIN LISPRO 100 UNITS/ML SQ PRN ×2 (07:12→11:58)
[2018-03-09] MEDS: DIVALPROEX SODIUM 500 MG DR TABLET PO SCH ×2 (08:39→16:48)
[2018-03-09] MEDS: HYPROMELLOSE 0.5% 15 ML OPHTHALMIC SOLUTION OD SCH ×3 (08:39→16:48)
[2018-03-09] MEDS: LevETIRAcetam 250 MG TABLET PO SCH ×2 (08:39→16:47)
[2018-03-09] MEDS: DOCUSATE SODIUM 100 MG CAPSULE PO SCH (08:39)
[2018-03-09] MEDS: LORATADINE 10 MG TABLET PO SCH (08:39)
[2018-03-09] MEDS: BENAZEPRIL HCL 5 MG TABLET PO SCH (08:40)
[2018-03-09] MEDS: OMEPRAZOLE 20 MG CAPSULE PO SCH (08:40)
[2018-03-09] MEDS: ASCORBIC ACID 500 MG TABLET PO SCH (08:40)
[2018-03-09] MEDS: TOPIRAMATE 100 MG TABLET PO SCH ×3 (08:40→16:47)
[2018-03-09] MEDS: QUEtiapine FUMARATE 200 MG TABLET PO SCH ×2 (08:42→20:07)
[2018-03-09 10:11] VITALS: BP 131/78
[2018-03-09 11:44] LABS: GLUCOMETER DEV NAME(LOC) 3EI C; GLUCOSE,POINT OF CARE 169 MG/DL (70-110)
[2018-03-09 16:19] LABS: GLUCOMETER DEV NAME(LOC) 3EI C; GLUCOSE,POINT OF CARE 123 MG/DL (70-110)
[2018-03-09 16:21] VITALS: BP 126/76
[2018-03-09 21:49] LABS: GLUCOMETER DEV NAME(LOC) 3EI C; GLUCOSE,POINT OF CARE 121 MG/DL (70-110)
[2018-03-10 05:34] LABS: GLUCOMETER DEV NAME(LOC) 3EI C; GLUCOSE,POINT OF CARE 119 MG/DL (70-110)
[2018-03-10] MEDS: FERROUS SULFATE 325 MG EC TABLET PO SCH ×2 (06:50→17:13)
[2018-03-10] MEDS: MetFORMIN HCL 500 MG TABLET PO SCH ×2 (06:50→17:13)
[2018-03-10] MEDS: ASCORBIC ACID 500 MG TABLET PO SCH (07:39)
[2018-03-10] MEDS: BENAZEPRIL HCL 5 MG TABLET PO SCH (07:39)
[2018-03-10] MEDS: LevETIRAcetam 250 MG TABLET PO SCH ×2 (07:39→17:13)
[2018-03-10] MEDS: TOPIRAMATE 100 MG TABLET PO SCH ×3 (07:39→17:13)
[2018-03-10] MEDS: LORATADINE 10 MG TABLET PO SCH (07:39)
[2018-03-10] MEDS: DOCUSATE SODIUM 100 MG CAPSULE PO SCH (07:42)
[2018-03-10] MEDS: QUEtiapine FUMARATE 200 MG TABLET PO SCH ×2 (07:42→21:40)
[2018-03-10] MEDS: DIVALPROEX SODIUM 500 MG DR TABLET PO SCH ×2 (07:42→17:14)
[2018-03-10] MEDS: OMEPRAZOLE 20 MG CAPSULE PO SCH (07:42)
[2018-03-10] MEDS: LORazepam 2 MG TABLET PO PRN (07:47)
[2018-03-10] MEDS: HALOPERIDOL 5 MG TABLET PO PRN (07:47)
[2018-03-10 08:00] VITALS: BP 106/73
[2018-03-10] MEDS: HYPROMELLOSE 0.5% 15 ML OPHTHALMIC SOLUTION OD SCH ×3 (10:17→17:12)
[2018-03-10 11:44] LABS: GLUCOMETER DEV NAME(LOC) 3EI C; GLUCOSE,POINT OF CARE 139 MG/DL (70-110)
[2018-03-10 16:09] VITALS: BP 126/74
[2018-03-10] MEDS: INSULIN LISPRO 100 UNITS/ML SQ PRN (17:12)
[2018-03-10 17:19] LABS: GLUCOMETER DEV NAME(LOC) 3EI C; GLUCOSE,POINT OF CARE 206 MG/DL (70-110)
[2018-03-11 05:24] LABS: GLUCOMETER DEV NAME(LOC) 3EI C; GLUCOSE,POINT OF CARE 152 MG/DL (70-110)
[2018-03-11] MEDS: FERROUS SULFATE 325 MG EC TABLET PO SCH ×2 (06:55→17:40)
[2018-03-11] MEDS: MetFORMIN HCL 500 MG TABLET PO SCH ×2 (06:55→17:41)
[2018-03-11] MEDS: INSULIN LISPRO 100 UNITS/ML SQ PRN ×2 (07:05→21:04)
[2018-03-11 08:00] VITALS: BP 116/73
[2018-03-11] MEDS: HALOPERIDOL 5 MG TABLET PO PRN (09:11)
[2018-03-11] MEDS: LORazepam 2 MG TABLET PO PRN (09:11)
[2018-03-11] MEDS: OMEPRAZOLE 20 MG CAPSULE PO SCH (09:33)
[2018-03-11] MEDS: ASCORBIC ACID 500 MG TABLET PO SCH (09:33)
[2018-03-11] MEDS: TOPIRAMATE 100 MG TABLET PO SCH ×3 (09:33→17:41)
[2018-03-11] MEDS: QUEtiapine FUMARATE 200 MG TABLET PO SCH ×2 (09:33→20:16)
[2018-03-11] MEDS: DOCUSATE SODIUM 100 MG CAPSULE PO SCH (09:33)
[2018-03-11] MEDS: LORATADINE 10 MG TABLET PO SCH (09:34)
[2018-03-11] MEDS: DIVALPROEX SODIUM 500 MG DR TABLET PO SCH ×2 (09:34→17:40)
[2018-03-11] MEDS: LevETIRAcetam 250 MG TABLET PO SCH ×2 (09:34→17:41)
[2018-03-11] MEDS: HYPROMELLOSE 0.5% 15 ML OPHTHALMIC SOLUTION OD SCH ×3 (09:35→17:41)
[2018-03-11] MEDS: BENAZEPRIL HCL 5 MG TABLET PO SCH (09:37)
[2018-03-11 11:24] LABS: GLUCOMETER DEV NAME(LOC) 3EI C; GLUCOSE,POINT OF CARE 149 MG/DL (70-110)
[2018-03-11 16:49] LABS: GLUCOMETER DEV NAME(LOC) 3EI C; GLUCOSE,POINT OF CARE 75 MG/DL (70-110)
[2018-03-11 18:31] VITALS: BP 106/65
[2018-03-11 21:08] LABS: GLUCOMETER DEV NAME(LOC) 3EI C; GLUCOSE,POINT OF CARE 145 MG/DL (70-110)
[2018-03-12 05:59] LABS: GLUCOMETER DEV NAME(LOC) 3EI C; GLUCOSE,POINT OF CARE 98 MG/DL (70-110)
[2018-03-12] MEDS: FERROUS SULFATE 325 MG EC TABLET PO SCH ×2 (06:57→17:01)
[2018-03-12] MEDS: MetFORMIN HCL 500 MG TABLET PO SCH ×2 (06:57→17:01)
[2018-03-12 08:57] VITALS: BP 116/81
[2018-03-12] MEDS: TOPIRAMATE 100 MG TABLET PO SCH ×3 (08:58→17:01)
[2018-03-12] MEDS: MULTIVITAMINS WITH MINERALS, THERAPEUTIC TABLET PO SCH (08:59)
[2018-03-12] MEDS: DIVALPROEX SODIUM 500 MG DR TABLET PO SCH ×2 (08:59→17:01)
[2018-03-12] MEDS: ASCORBIC ACID 500 MG TABLET PO SCH (08:59)
[2018-03-12] MEDS: OMEPRAZOLE 20 MG CAPSULE PO SCH (08:59)
[2018-03-12] MEDS: BENAZEPRIL HCL 5 MG TABLET PO SCH (08:59)
[2018-03-12] MEDS: QUEtiapine FUMARATE 200 MG TABLET PO SCH ×2 (08:59→20:47)
[2018-03-12] MEDS: LevETIRAcetam 250 MG TABLET PO SCH ×2 (08:59→17:01)
[2018-03-12] MEDS: DOCUSATE SODIUM 100 MG CAPSULE PO SCH (08:59)
[2018-03-12] MEDS: LORATADINE 10 MG TABLET PO SCH (08:59)
[2018-03-12] MEDS: HYPROMELLOSE 0.5% 15 ML OPHTHALMIC SOLUTION OD SCH ×3 (09:00→17:01)
[2018-03-12 11:29] LABS: GLUCOMETER DEV NAME(LOC) 3EI C; GLUCOSE,POINT OF CARE 152 MG/DL (70-110)
[2018-03-12] MEDS: INSULIN LISPRO 100 UNITS/ML SQ PRN ×3 (12:08→20:48)
[2018-03-12 16:11] VITALS: BP 113/78
[2018-03-12 17:03] LABS: GLUCOMETER DEV NAME(LOC) 3EI C; GLUCOSE,POINT OF CARE 234 MG/DL (70-110)
[2018-03-12 20:29] LABS: GLUCOMETER DEV NAME(LOC) 3EI C; GLUCOSE,POINT OF CARE 159 MG/DL (70-110)
[2018-03-13 05:59] LABS: GLUCOMETER DEV NAME(LOC) 3EI C; GLUCOSE,POINT OF CARE 117 MG/DL (70-110)
[2018-03-13] MEDS: MetFORMIN HCL 500 MG TABLET PO SCH ×2 (06:49→17:00)
[2018-03-13] MEDS: FERROUS SULFATE 325 MG EC TABLET PO SCH ×2 (06:49→17:00)
[2018-03-13 08:00] VITALS: BP 157/71
[2018-03-13] MEDS: OMEPRAZOLE 20 MG CAPSULE PO SCH (09:00)
[2018-03-13] MEDS: LevETIRAcetam 250 MG TABLET PO SCH ×2 (09:00→17:00)
[2018-03-13] MEDS: BENAZEPRIL HCL 5 MG TABLET PO SCH (09:00)
[2018-03-13] MEDS: MULTIVITAMINS WITH MINERALS, THERAPEUTIC TABLET PO SCH (09:00)
[2018-03-13] MEDS: HYPROMELLOSE 0.5% 15 ML OPHTHALMIC SOLUTION OD SCH ×3 (09:00→18:03)
[2018-03-13] MEDS: ASCORBIC ACID 500 MG TABLET PO SCH (09:00)
[2018-03-13] MEDS: DOCUSATE SODIUM 100 MG CAPSULE PO SCH (09:00)
[2018-03-13] MEDS: QUEtiapine FUMARATE 200 MG TABLET PO SCH ×2 (09:00→20:01)
[2018-03-13] MEDS: DIVALPROEX SODIUM 500 MG DR TABLET PO SCH ×2 (09:00→16:59)
[2018-03-13] MEDS: TOPIRAMATE 100 MG TABLET PO SCH ×3 (09:00→17:00)
[2018-03-13] MEDS: LORATADINE 10 MG TABLET PO SCH (09:00)
[2018-03-13 11:24] LABS: GLUCOMETER DEV NAME(LOC) 3EI C; GLUCOSE,POINT OF CARE 123 MG/DL (70-110)
[2018-03-13 16:55] VITALS: BP 117/81
[2018-03-13 17:49] LABS: GLUCOMETER DEV NAME(LOC) 3EI C; GLUCOSE,POINT OF CARE 132 MG/DL (70-110)
[2018-03-13 21:24] LABS: GLUCOMETER DEV NAME(LOC) 3EI C; GLUCOSE,POINT OF CARE 136 MG/DL (70-110)
[2018-03-14 05:40] LABS: GLUCOMETER DEV NAME(LOC) 3EI C; GLUCOSE,POINT OF CARE 161 MG/DL (70-110)
[2018-03-14] MEDS: FERROUS SULFATE 325 MG EC TABLET PO SCH ×2 (06:35→17:39)
[2018-03-14] MEDS: MetFORMIN HCL 500 MG TABLET PO SCH ×2 (06:35→17:39)
[2018-03-14] MEDS: INSULIN LISPRO 100 UNITS/ML SQ PRN ×3 (06:47→17:44)
[2018-03-14] MEDS: TOPIRAMATE 100 MG TABLET PO SCH ×3 (09:29→17:39)
[2018-03-14] MEDS: OMEPRAZOLE 20 MG CAPSULE PO SCH (09:29)
[2018-03-14] MEDS: DIVALPROEX SODIUM 500 MG DR TABLET PO SCH ×2 (09:29→17:39)
[2018-03-14] MEDS: MULTIVITAMINS WITH MINERALS, THERAPEUTIC TABLET PO SCH (09:29)
[2018-03-14] MEDS: LORATADINE 10 MG TABLET PO SCH (09:29)
[2018-03-14] MEDS: ASCORBIC ACID 500 MG TABLET PO SCH (09:29)
[2018-03-14] MEDS: LevETIRAcetam 250 MG TABLET PO SCH ×2 (09:30→18:36)
[2018-03-14] MEDS: HYPROMELLOSE 0.5% 15 ML OPHTHALMIC SOLUTION OD SCH ×3 (09:30→17:39)
[2018-03-14] MEDS: BENAZEPRIL HCL 5 MG TABLET PO SCH (09:30)
[2018-03-14] MEDS: QUEtiapine FUMARATE 200 MG TABLET PO SCH ×2 (09:33→20:54)
[2018-03-14] MEDS: HALOPERIDOL 5 MG TABLET PO PRN (09:42)
[2018-03-14] MEDS: LORazepam 2 MG TABLET PO PRN (09:42)
[2018-03-14] MEDS: DOCUSATE SODIUM 100 MG CAPSULE PO SCH (09:43)
[2018-03-14 12:29] LABS: GLUCOMETER DEV NAME(LOC) 3EI C; GLUCOSE,POINT OF CARE 142 MG/DL (70-110)
[2018-03-14 14:02] VITALS: BP 125/78
[2018-03-14 16:27] VITALS: BP 99/70
[2018-03-14 17:24] LABS: GLUCOMETER DEV NAME(LOC) 3EI C; GLUCOSE,POINT OF CARE 170 MG/DL (70-110)
[2018-03-14 21:19] LABS: GLUCOMETER DEV NAME(LOC) 3EI C; GLUCOSE,POINT OF CARE 111 MG/DL (70-110)
[2018-03-15 05:35] LABS: GLUCOMETER DEV NAME(LOC) 3EI C; GLUCOSE,POINT OF CARE 150 MG/DL (70-110)
[2018-03-15] MEDS: FERROUS SULFATE 325 MG EC TABLET PO SCH ×2 (06:49→16:46)
[2018-03-15] MEDS: MetFORMIN HCL 500 MG TABLET PO SCH ×2 (06:49→16:47)
[2018-03-15] MEDS: INSULIN LISPRO 100 UNITS/ML SQ PRN ×3 (07:03→21:47)
[2018-03-15] MEDS: HYPROMELLOSE 0.5% 15 ML OPHTHALMIC SOLUTION OD SCH ×3 (08:30→16:45)
[2018-03-15] MEDS: LORATADINE 10 MG TABLET PO SCH (08:31)
[2018-03-15] MEDS: MULTIVITAMINS WITH MINERALS, THERAPEUTIC TABLET PO SCH (08:31)
[2018-03-15] MEDS: DOCUSATE SODIUM 100 MG CAPSULE PO SCH (08:31)
[2018-03-15] MEDS: BENAZEPRIL HCL 5 MG TABLET PO SCH (08:31)
[2018-03-15] MEDS: ASCORBIC ACID 500 MG TABLET PO SCH (08:31)
[2018-03-15] MEDS: LevETIRAcetam 250 MG TABLET PO SCH ×2 (08:32→16:46)
[2018-03-15] MEDS: QUEtiapine FUMARATE 200 MG TABLET PO SCH ×2 (08:32→21:46)
[2018-03-15] MEDS: OMEPRAZOLE 20 MG CAPSULE PO SCH (08:32)
[2018-03-15] MEDS: DIVALPROEX SODIUM 500 MG DR TABLET PO SCH ×2 (08:34→16:46)
[2018-03-15] MEDS: TOPIRAMATE 100 MG TABLET PO SCH ×3 (08:34→16:46)
[2018-03-15 11:49] LABS: GLUCOMETER DEV NAME(LOC) 3EI C; GLUCOSE,POINT OF CARE 144 MG/DL (70-110)
[2018-03-15 16:23] LABS: GLUCOMETER DEV NAME(LOC) 3EI C; GLUCOSE,POINT OF CARE 133 MG/DL (70-110)
[2018-03-15 16:37] VITALS: BP 120/67
[2018-03-15 20:59] LABS: GLUCOMETER DEV NAME(LOC) 3EI C; GLUCOSE,POINT OF CARE 197 MG/DL (70-110)
[2018-03-16 05:40] LABS: GLUCOMETER DEV NAME(LOC) 3EI C; GLUCOSE,POINT OF CARE 179 MG/DL (70-110)
[2018-03-16] MEDS: FERROUS SULFATE 325 MG EC TABLET PO SCH ×2 (06:53→17:37)
[2018-03-16] MEDS: MetFORMIN HCL 500 MG TABLET PO SCH ×2 (06:53→17:37)
[2018-03-16] MEDS: INSULIN LISPRO 100 UNITS/ML SQ PRN ×3 (06:58→21:42)
[2018-03-16] MEDS: OMEPRAZOLE 20 MG CAPSULE PO SCH (07:39)
[2018-03-16] MEDS: QUEtiapine FUMARATE 200 MG TABLET PO SCH ×2 (07:39→21:16)
[2018-03-16] MEDS: DIVALPROEX SODIUM 500 MG DR TABLET PO SCH ×2 (07:39→17:38)
[2018-03-16] MEDS: LORATADINE 10 MG TABLET PO SCH (07:39)
[2018-03-16] MEDS: HALOPERIDOL 5 MG TABLET PO PRN (07:39)
[2018-03-16] MEDS: LORazepam 2 MG TABLET PO PRN (07:39)
[2018-03-16] MEDS: TOPIRAMATE 100 MG TABLET PO SCH ×3 (07:40→17:38)
[2018-03-16] MEDS: DOCUSATE SODIUM 100 MG CAPSULE PO SCH (07:40)
[2018-03-16] MEDS: BENAZEPRIL HCL 5 MG TABLET PO SCH (07:40)
[2018-03-16] MEDS: HYPROMELLOSE 0.5% 15 ML OPHTHALMIC SOLUTION OD SCH ×3 (07:40→17:36)
[2018-03-16] MEDS: MULTIVITAMINS WITH MINERALS, THERAPEUTIC TABLET PO SCH (07:40)
[2018-03-16] MEDS: LevETIRAcetam 250 MG TABLET PO SCH ×2 (07:40→17:36)
[2018-03-16] MEDS: ASCORBIC ACID 500 MG TABLET PO SCH (07:40)
[2018-03-16 08:00] VITALS: BP 128/72
[2018-03-16] MEDS: BACITRACIN 28.4 GM OINTMENT TP PRN (10:35)
[2018-03-16 11:44] LABS: GLUCOMETER DEV NAME(LOC) 3EI C; GLUCOSE,POINT OF CARE 126 MG/DL (70-110)
[2018-03-16 16:28] VITALS: BP 123/78
[2018-03-16 17:14] LABS: GLUCOMETER DEV NAME(LOC) 3EI C; GLUCOSE,POINT OF CARE 149 MG/DL (70-110)
[2018-03-16 21:59] LABS: GLUCOMETER DEV NAME(LOC) 3EI C; GLUCOSE,POINT OF CARE 164 MG/DL (70-110)
[2018-03-17 05:44] LABS: GLUCOMETER DEV NAME(LOC) 3EI C; GLUCOSE,POINT OF CARE 175 MG/DL (70-110)
[2018-03-17] MEDS: FERROUS SULFATE 325 MG EC TABLET PO SCH ×2 (06:40→17:30)
[2018-03-17] MEDS: MetFORMIN HCL 500 MG TABLET PO SCH ×2 (06:40→17:30)
[2018-03-17] MEDS: INSULIN LISPRO 100 UNITS/ML SQ PRN (06:46)
[2018-03-17] MEDS: QUEtiapine FUMARATE 200 MG TABLET PO SCH ×2 (08:06→21:02)
[2018-03-17] MEDS: DOCUSATE SODIUM 100 MG CAPSULE PO SCH (08:06)
[2018-03-17] MEDS: BENAZEPRIL HCL 5 MG TABLET PO SCH (08:06)
[2018-03-17] MEDS: OMEPRAZOLE 20 MG CAPSULE PO SCH (08:06)
[2018-03-17] MEDS: LevETIRAcetam 250 MG TABLET PO SCH ×2 (08:06→17:30)
[2018-03-17] MEDS: MULTIVITAMINS WITH MINERALS, THERAPEUTIC TABLET PO SCH (08:06)
[2018-03-17] MEDS: TOPIRAMATE 100 MG TABLET PO SCH ×3 (08:07→17:30)
[2018-03-17] MEDS: ASCORBIC ACID 500 MG TABLET PO SCH (08:07)
[2018-03-17] MEDS: LORATADINE 10 MG TABLET PO SCH (08:07)
[2018-03-17] MEDS: DIVALPROEX SODIUM 500 MG DR TABLET PO SCH ×2 (08:07→17:30)
[2018-03-17] MEDS: HYPROMELLOSE 0.5% 15 ML OPHTHALMIC SOLUTION OD SCH ×3 (08:58→17:29)
[2018-03-17 11:19] LABS: GLUCOMETER DEV NAME(LOC) 3EI C; GLUCOSE,POINT OF CARE 102 MG/DL (70-110)
[2018-03-17 16:24] LABS: GLUCOMETER DEV NAME(LOC) 3EI C; GLUCOSE,POINT OF CARE 104 MG/DL (70-110)
[2018-03-17 17:05] VITALS: BP 137/74
[2018-03-17 20:29] LABS: GLUCOMETER DEV NAME(LOC) 3EI C; GLUCOSE,POINT OF CARE 187 MG/DL (70-110)
[2018-03-18 06:19] LABS: GLUCOMETER DEV NAME(LOC) 3EI C; GLUCOSE,POINT OF CARE 153 MG/DL (70-110)
[2018-03-18] MEDS: INSULIN LISPRO 100 UNITS/ML SQ PRN ×3 (06:43→17:46)
[2018-03-18] MEDS: FERROUS SULFATE 325 MG EC TABLET PO SCH ×2 (06:58→17:45)
[2018-03-18] MEDS: MetFORMIN HCL 500 MG TABLET PO SCH ×2 (06:58→17:45)
[2018-03-18] MEDS: BENAZEPRIL HCL 5 MG TABLET PO SCH (08:31)
[2018-03-18] MEDS: HYPROMELLOSE 0.5% 15 ML OPHTHALMIC SOLUTION OD SCH ×3 (08:31→17:44)
[2018-03-18] MEDS: TOPIRAMATE 100 MG TABLET PO SCH ×3 (08:31→17:45)
[2018-03-18] MEDS: BACITRACIN 28.4 GM OINTMENT TP PRN (08:31)
[2018-03-18] MEDS: LevETIRAcetam 250 MG TABLET PO SCH ×2 (08:31→17:45)
[2018-03-18] MEDS: MULTIVITAMINS WITH MINERALS, THERAPEUTIC TABLET PO SCH (08:32)
[2018-03-18] MEDS: LORATADINE 10 MG TABLET PO SCH (08:32)
[2018-03-18] MEDS: ASCORBIC ACID 500 MG TABLET PO SCH (08:32)
[2018-03-18] MEDS: DOCUSATE SODIUM 100 MG CAPSULE PO SCH (08:32)
[2018-03-18] MEDS: QUEtiapine FUMARATE 200 MG TABLET PO SCH ×2 (08:32→21:18)
[2018-03-18] MEDS: OMEPRAZOLE 20 MG CAPSULE PO SCH (08:32)
[2018-03-18] MEDS: DIVALPROEX SODIUM 500 MG DR TABLET PO SCH ×2 (08:32→17:45)
[2018-03-18 10:09] VITALS: BP 131/72
[2018-03-18 11:24] LABS: GLUCOMETER DEV NAME(LOC) 3EI C; GLUCOSE,POINT OF CARE 160 MG/DL (70-110)
[2018-03-18 16:35] VITALS: BP 102/66
[2018-03-18 17:14] LABS: GLUCOMETER DEV NAME(LOC) 3EI C; GLUCOSE,POINT OF CARE 212 MG/DL (70-110)
[2018-03-18 21:38] LABS: GLUCOMETER DEV NAME(LOC) 3EI C; GLUCOSE,POINT OF CARE 107 MG/DL (70-110)
[2018-03-19 05:39] LABS: GLUCOMETER DEV NAME(LOC) 3EI C; GLUCOSE,POINT OF CARE 104 MG/DL (70-110)
[2018-03-19] MEDS: MetFORMIN HCL 500 MG TABLET PO SCH ×2 (07:00→16:34)
[2018-03-19] MEDS: FERROUS SULFATE 325 MG EC TABLET PO SCH ×2 (07:00→16:34)
[2018-03-19 08:39] VITALS: BP 121/74
[2018-03-19] MEDS: TOPIRAMATE 100 MG TABLET PO SCH ×3 (09:08→16:20)
[2018-03-19] MEDS: LORATADINE 10 MG TABLET PO SCH (09:08)
[2018-03-19] MEDS: ASCORBIC ACID 500 MG TABLET PO SCH (09:08)
[2018-03-19] MEDS: DOCUSATE SODIUM 100 MG CAPSULE PO SCH (09:09)
[2018-03-19] MEDS: MULTIVITAMINS WITH MINERALS, THERAPEUTIC TABLET PO SCH (09:09)
[2018-03-19] MEDS: OMEPRAZOLE 20 MG CAPSULE PO SCH (09:09)
[2018-03-19] MEDS: QUEtiapine FUMARATE 200 MG TABLET PO SCH ×2 (09:09→21:13)
[2018-03-19] MEDS: BENAZEPRIL HCL 5 MG TABLET PO SCH (09:10)
[2018-03-19] MEDS: LevETIRAcetam 250 MG TABLET PO SCH ×2 (09:10→16:20)
[2018-03-19] MEDS: DIVALPROEX SODIUM 500 MG DR TABLET PO SCH ×2 (09:10→16:20)
[2018-03-19] MEDS: HYPROMELLOSE 0.5% 15 ML OPHTHALMIC SOLUTION OD SCH ×3 (09:11→16:20)
[2018-03-19 11:29] LABS: GLUCOMETER DEV NAME(LOC) 3EI C; GLUCOSE,POINT OF CARE 194 MG/DL (70-110)
[2018-03-19] MEDS: INSULIN LISPRO 100 UNITS/ML SQ PRN (11:44)
[2018-03-19 16:54] LABS: GLUCOMETER DEV NAME(LOC) 3EI C; GLUCOSE,POINT OF CARE 100 MG/DL (70-110)
[2018-03-19 22:09] VITALS: BP 109/69
[2018-03-19 22:59] LABS: GLUCOMETER DEV NAME(LOC) 3EI C; GLUCOSE,POINT OF CARE 136 MG/DL (70-110)
[2018-03-20 05:44] LABS: GLUCOMETER DEV NAME(LOC) 3EI C; GLUCOSE,POINT OF CARE 85 MG/DL (70-110)
[2018-03-20] MEDS: MetFORMIN HCL 500 MG TABLET PO SCH ×2 (06:52→16:42)
[2018-03-20] MEDS: FERROUS SULFATE 325 MG EC TABLET PO SCH ×2 (06:52→16:41)
[2018-03-20 08:30] VITALS: BP 130/88
[2018-03-20] MEDS: LevETIRAcetam 250 MG TABLET PO SCH ×2 (09:00→16:41)
[2018-03-20] MEDS: BENAZEPRIL HCL 5 MG TABLET PO SCH (09:00)
[2018-03-20] MEDS: QUEtiapine FUMARATE 200 MG TABLET PO SCH ×2 (09:00→21:06)
[2018-03-20] MEDS: DOCUSATE SODIUM 100 MG CAPSULE PO SCH (09:00)
[2018-03-20] MEDS: MULTIVITAMINS WITH MINERALS, THERAPEUTIC TABLET PO SCH (09:00)
[2018-03-20] MEDS: TOPIRAMATE 100 MG TABLET PO SCH ×3 (09:00→16:42)
[2018-03-20] MEDS: ASCORBIC ACID 500 MG TABLET PO SCH (09:00)
[2018-03-20] MEDS: LORATADINE 10 MG TABLET PO SCH (09:00)
[2018-03-20] MEDS: HYPROMELLOSE 0.5% 15 ML OPHTHALMIC SOLUTION OD SCH ×3 (09:00→16:41)
[2018-03-20] MEDS: DIVALPROEX SODIUM 500 MG DR TABLET PO SCH ×2 (09:00→16:41)
[2018-03-20] MEDS: OMEPRAZOLE 20 MG CAPSULE PO SCH (09:00)
[2018-03-20 11:18] LABS: GLUCOMETER DEV NAME(LOC) 3EI C; GLUCOSE,POINT OF CARE 153 MG/DL (70-110)
[2018-03-20] MEDS: INSULIN LISPRO 100 UNITS/ML SQ PRN ×3 (11:28→21:27)
[2018-03-20 17:17] VITALS: BP 127/94
[2018-03-20 17:28] LABS: GLUCOMETER DEV NAME(LOC) 3EI C; GLUCOSE,POINT OF CARE 154 MG/DL (70-110)
[2018-03-20 21:39] LABS: GLUCOMETER DEV NAME(LOC) 3EI C; GLUCOSE,POINT OF CARE 166 MG/DL (70-110)
[2018-03-21 05:34] LABS: GLUCOMETER DEV NAME(LOC) 3EI C; GLUCOSE,POINT OF CARE 149 MG/DL (70-110)
[2018-03-21] MEDS: MetFORMIN HCL 500 MG TABLET PO SCH ×2 (06:43→18:31)
[2018-03-21] MEDS: FERROUS SULFATE 325 MG EC TABLET PO SCH ×2 (06:43→18:31)
[2018-03-21] MEDS: INSULIN LISPRO 100 UNITS/ML SQ PRN ×3 (06:57→17:09)
[2018-03-21 09:15] VITALS: BP 127/90
[2018-03-21] MEDS: TOPIRAMATE 100 MG TABLET PO SCH ×3 (09:23→18:32)
[2018-03-21] MEDS: MULTIVITAMINS WITH MINERALS, THERAPEUTIC TABLET PO SCH (09:23)
[2018-03-21] MEDS: OMEPRAZOLE 20 MG CAPSULE PO SCH (09:23)
[2018-03-21] MEDS: LORATADINE 10 MG TABLET PO SCH (09:23)
[2018-03-21] MEDS: HYPROMELLOSE 0.5% 15 ML OPHTHALMIC SOLUTION OD SCH ×3 (09:23→16:53)
[2018-03-21] MEDS: ASCORBIC ACID 500 MG TABLET PO SCH (09:23)
[2018-03-21] MEDS: DOCUSATE SODIUM 100 MG CAPSULE PO SCH (09:23)
[2018-03-21] MEDS: DIVALPROEX SODIUM 500 MG DR TABLET PO SCH ×2 (09:23→18:31)
[2018-03-21] MEDS: LevETIRAcetam 250 MG TABLET PO SCH ×2 (09:23→18:31)
[2018-03-21] MEDS: BENAZEPRIL HCL 5 MG TABLET PO SCH (09:23)
[2018-03-21] MEDS: QUEtiapine FUMARATE 200 MG TABLET PO SCH ×2 (09:24→21:41)
[2018-03-21 11:13] LABS: GLUCOMETER DEV NAME(LOC) 3EI C; GLUCOSE,POINT OF CARE 153 MG/DL (70-110)
[2018-03-21 16:45] VITALS: BP 121/67
[2018-03-21 17:04] LABS: GLUCOMETER DEV NAME(LOC) 3EI C; GLUCOSE,POINT OF CARE 157 MG/DL (70-110)
[2018-03-21 21:49] LABS: GLUCOMETER DEV NAME(LOC) 3EI C; GLUCOSE,POINT OF CARE 131 MG/DL (70-110)
[2018-03-22 05:34] LABS: GLUCOMETER DEV NAME(LOC) 3EI C; GLUCOSE,POINT OF CARE 138 MG/DL (70-110)
[2018-03-22] MEDS: MetFORMIN HCL 500 MG TABLET PO SCH ×2 (06:55→17:01)
[2018-03-22] MEDS: FERROUS SULFATE 325 MG EC TABLET PO SCH ×2 (06:55→17:01)
[2018-03-22] MEDS: MULTIVITAMINS WITH MINERALS, THERAPEUTIC TABLET PO SCH (09:00)
[2018-03-22] MEDS: ASCORBIC ACID 500 MG TABLET PO SCH (09:00)
[2018-03-22] MEDS: TOPIRAMATE 100 MG TABLET PO SCH ×3 (09:00→17:01)
[2018-03-22] MEDS: DIVALPROEX SODIUM 500 MG DR TABLET PO SCH ×2 (09:00→17:01)
[2018-03-22] MEDS: BENAZEPRIL HCL 5 MG TABLET PO SCH (09:00)
[2018-03-22] MEDS: HYPROMELLOSE 0.5% 15 ML OPHTHALMIC SOLUTION OD SCH ×3 (09:00→17:01)
[2018-03-22] MEDS: DOCUSATE SODIUM 100 MG CAPSULE PO SCH (09:00)
[2018-03-22] MEDS: LORATADINE 10 MG TABLET PO SCH (09:00)
[2018-03-22] MEDS: LevETIRAcetam 250 MG TABLET PO SCH ×2 (09:00→17:01)
[2018-03-22] MEDS: OMEPRAZOLE 20 MG CAPSULE PO SCH (09:00)
[2018-03-22] MEDS: QUEtiapine FUMARATE 200 MG TABLET PO SCH ×2 (09:00→21:00)
[2018-03-22 11:29] LABS: GLUCOMETER DEV NAME(LOC) 3EI C; GLUCOSE,POINT OF CARE 185 MG/DL (70-110)
[2018-03-22] MEDS: INSULIN LISPRO 100 UNITS/ML SQ PRN ×2 (12:10→17:38)
[2018-03-22 16:49] LABS: GLUCOMETER DEV NAME(LOC) 3EI C; GLUCOSE,POINT OF CARE 202 MG/DL (70-110)
[2018-03-22 19:48] VITALS: BP 100/58
[2018-03-22 21:35] LABS: GLUCOMETER DEV NAME(LOC) 3EI C; GLUCOSE,POINT OF CARE 176 MG/DL (70-110)
[2018-03-23 06:19] LABS: GLUCOMETER DEV NAME(LOC) 3EI C; GLUCOSE,POINT OF CARE 97 MG/DL (70-110)
[2018-03-23] MEDS: FERROUS SULFATE 325 MG EC TABLET PO SCH ×2 (06:51→17:13)
[2018-03-23] MEDS: MetFORMIN HCL 500 MG TABLET PO SCH ×2 (06:51→17:13)
[2018-03-23] MEDS: ASCORBIC ACID 500 MG TABLET PO SCH (07:43)
[2018-03-23] MEDS: LevETIRAcetam 250 MG TABLET PO SCH ×2 (07:43→17:13)
[2018-03-23] MEDS: MULTIVITAMINS WITH MINERALS, THERAPEUTIC TABLET PO SCH (07:43)
[2018-03-23] MEDS: DOCUSATE SODIUM 100 MG CAPSULE PO SCH (07:43)
[2018-03-23] MEDS: DIVALPROEX SODIUM 500 MG DR TABLET PO SCH ×2 (07:43→17:13)
[2018-03-23] MEDS: QUEtiapine FUMARATE 200 MG TABLET PO SCH ×2 (07:43→21:55)
[2018-03-23] MEDS: OMEPRAZOLE 20 MG CAPSULE PO SCH (07:43)
[2018-03-23] MEDS: TOPIRAMATE 100 MG TABLET PO SCH (07:43)
[2018-03-23] MEDS: BENAZEPRIL HCL 5 MG TABLET PO SCH (07:43)
[2018-03-23] MEDS: HYPROMELLOSE 0.5% 15 ML OPHTHALMIC SOLUTION OD SCH (07:44)
[2018-03-23] MEDS: LORATADINE 10 MG TABLET PO SCH (07:44)
[2018-03-23 11:54] LABS: GLUCOMETER DEV NAME(LOC) 3EI C; GLUCOSE,POINT OF CARE 141 MG/DL (70-110)
[2018-03-23] MEDS: INSULIN LISPRO 100 UNITS/ML SQ PRN (11:56)
[2018-03-23 12:12] VITALS: BP 127/91
[2018-03-23 16:12] VITALS: BP 129/68
[2018-03-23 17:19] LABS: GLUCOMETER DEV NAME(LOC) 3EI C; GLUCOSE,POINT OF CARE 100 MG/DL (70-110)
[2018-03-23 22:04] LABS: GLUCOMETER DEV NAME(LOC) 3EI C; GLUCOSE,POINT OF CARE 130 MG/DL (70-110)
[2018-03-24 05:34] LABS: GLUCOMETER DEV NAME(LOC) 3EI C; GLUCOSE,POINT OF CARE 139 MG/DL (70-110)
[2018-03-24] MEDS: MetFORMIN HCL 500 MG TABLET PO SCH ×2 (06:57→17:25)
[2018-03-24] MEDS: FERROUS SULFATE 325 MG EC TABLET PO SCH ×2 (06:57→17:24)
[2018-03-24] MEDS: INSULIN LISPRO 100 UNITS/ML SQ PRN ×3 (07:07→17:32)
[2018-03-24] MEDS: DIVALPROEX SODIUM 500 MG DR TABLET PO SCH ×2 (07:57→17:25)
[2018-03-24] MEDS: LevETIRAcetam 250 MG TABLET PO SCH ×2 (07:57→17:24)
[2018-03-24] MEDS: LORATADINE 10 MG TABLET PO SCH (07:57)
[2018-03-24] MEDS: MULTIVITAMINS WITH MINERALS, THERAPEUTIC TABLET PO SCH (07:57)
[2018-03-24] MEDS: ASCORBIC ACID 500 MG TABLET PO SCH (07:57)
[2018-03-24] MEDS: QUEtiapine FUMARATE 200 MG TABLET PO SCH ×2 (07:58→21:35)
[2018-03-24] MEDS: BENAZEPRIL HCL 5 MG TABLET PO SCH (07:58)
[2018-03-24] MEDS: DOCUSATE SODIUM 100 MG CAPSULE PO SCH (07:58)
[2018-03-24] MEDS: OMEPRAZOLE 20 MG CAPSULE PO SCH (07:59)
[2018-03-24 08:00] VITALS: BP 112/70
[2018-03-24] MEDS: TOPIRAMATE 100 MG TABLET PO SCH ×3 (08:01→17:26)
[2018-03-24] MEDS: HYPROMELLOSE 0.5% 15 ML OPHTHALMIC SOLUTION OD SCH ×3 (08:02→17:26)
[2018-03-24 11:44] LABS: GLUCOMETER DEV NAME(LOC) 3EI C; GLUCOSE,POINT OF CARE 169 MG/DL (70-110)
[2018-03-24 16:03] VITALS: BP 119/82
[2018-03-24 17:19] LABS: GLUCOMETER DEV NAME(LOC) 3EI C; GLUCOSE,POINT OF CARE 177 MG/DL (70-110)
[2018-03-24 20:25] LABS: GLUCOMETER DEV NAME(LOC) 3EI C; GLUCOSE,POINT OF CARE 135 MG/DL (70-110)
[2018-03-25 05:49] LABS: GLUCOMETER DEV NAME(LOC) 3EI C; GLUCOSE,POINT OF CARE 107 MG/DL (70-110)
[2018-03-25] MEDS: FERROUS SULFATE 325 MG EC TABLET PO SCH ×2 (07:10→18:30)
[2018-03-25] MEDS: MetFORMIN HCL 500 MG TABLET PO SCH ×2 (07:10→18:30)
[2018-03-25] MEDS: DOCUSATE SODIUM 100 MG CAPSULE PO SCH (09:21)
[2018-03-25] MEDS: MULTIVITAMINS WITH MINERALS, THERAPEUTIC TABLET PO SCH (09:21)
[2018-03-25] MEDS: TOPIRAMATE 100 MG TABLET PO SCH ×3 (09:21→18:00)
[2018-03-25] MEDS: ASCORBIC ACID 500 MG TABLET PO SCH (09:21)
[2018-03-25] MEDS: LevETIRAcetam 250 MG TABLET PO SCH ×2 (09:21→18:00)
[2018-03-25] MEDS: LORATADINE 10 MG TABLET PO SCH (09:21)
[2018-03-25] MEDS: DIVALPROEX SODIUM 500 MG DR TABLET PO SCH ×2 (09:21→18:00)
[2018-03-25] MEDS: OMEPRAZOLE 20 MG CAPSULE PO SCH (09:21)
[2018-03-25] MEDS: BENAZEPRIL HCL 5 MG TABLET PO SCH (09:21)
[2018-03-25] MEDS: QUEtiapine FUMARATE 200 MG TABLET PO SCH ×2 (09:21→21:24)
[2018-03-25] MEDS: BACITRACIN 28.4 GM OINTMENT TP SCH (09:31)
[2018-03-25] MEDS: HYPROMELLOSE 0.5% 15 ML OPHTHALMIC SOLUTION OD SCH ×3 (09:32→18:00)
[2018-03-25 09:56] VITALS: BP 109/61
[2018-03-25 11:35] LABS: GLUCOMETER DEV NAME(LOC) 3EI C; GLUCOSE,POINT OF CARE 207 MG/DL (70-110)
[2018-03-25] MEDS: INSULIN LISPRO 100 UNITS/ML SQ PRN ×4 (11:46→21:37)
[2018-03-25 16:44] LABS: GLUCOMETER DEV NAME(LOC) 3EI C; GLUCOSE,POINT OF CARE 169 MG/DL (70-110)
[2018-03-25 20:15] VITALS: BP 115/68
[2018-03-25 21:54] LABS: GLUCOMETER DEV NAME(LOC) 3EI C; GLUCOSE,POINT OF CARE 159 MG/DL (70-110)
[2018-03-26 05:34] LABS: GLUCOMETER DEV NAME(LOC) 3EI C; GLUCOSE,POINT OF CARE 141 MG/DL (70-110)
[2018-03-26] MEDS: MetFORMIN HCL 500 MG TABLET PO SCH ×2 (07:10→17:54)
[2018-03-26] MEDS: FERROUS SULFATE 325 MG EC TABLET PO SCH ×2 (07:10→17:54)
[2018-03-26] MEDS: INSULIN LISPRO 100 UNITS/ML SQ PRN ×4 (07:18→21:26)
[2018-03-26] MEDS: ASCORBIC ACID 500 MG TABLET PO SCH (08:17)
[2018-03-26] MEDS: DOCUSATE SODIUM 100 MG CAPSULE PO SCH (08:17)
[2018-03-26] MEDS: LevETIRAcetam 250 MG TABLET PO SCH ×2 (08:17→17:54)
[2018-03-26] MEDS: OMEPRAZOLE 20 MG CAPSULE PO SCH (08:17)
[2018-03-26] MEDS: DIVALPROEX SODIUM 500 MG DR TABLET PO SCH ×2 (08:17→17:54)
[2018-03-26] MEDS: LORazepam 2 MG TABLET PO PRN (08:17)
[2018-03-26] MEDS: TOPIRAMATE 100 MG TABLET PO SCH ×3 (08:17→17:54)
[2018-03-26] MEDS: BENAZEPRIL HCL 5 MG TABLET PO SCH (08:18)
[2018-03-26] MEDS: LORATADINE 10 MG TABLET PO SCH (08:18)
[2018-03-26] MEDS: QUEtiapine FUMARATE 200 MG TABLET PO SCH ×2 (08:18→21:26)
[2018-03-26] MEDS: BACITRACIN 28.4 GM OINTMENT TP SCH (10:41)
[2018-03-26] MEDS: MULTIVITAMINS WITH MINERALS, THERAPEUTIC TABLET PO SCH (10:41)
[2018-03-26] MEDS: HYPROMELLOSE 0.5% 15 ML OPHTHALMIC SOLUTION OD SCH ×3 (10:41→17:53)
[2018-03-26 11:59] LABS: GLUCOMETER DEV NAME(LOC) 3EI C; GLUCOSE,POINT OF CARE 109 MG/DL (70-110)
[2018-03-26 16:28] LABS: GLUCOMETER DEV NAME(LOC) 3EI C; GLUCOSE,POINT OF CARE 152 MG/DL (70-110)
[2018-03-26 18:40] VITALS: BP 108/63
[2018-03-26 21:09] LABS: GLUCOMETER DEV NAME(LOC) 3EI C; GLUCOSE,POINT OF CARE 196 MG/DL (70-110)
[2018-03-27 05:39] LABS: GLUCOMETER DEV NAME(LOC) 3EI C; GLUCOSE,POINT OF CARE 138 MG/DL (70-110)
[2018-03-27] MEDS: FERROUS SULFATE 325 MG EC TABLET PO SCH ×2 (06:40→18:00)
[2018-03-27] MEDS: MetFORMIN HCL 500 MG TABLET PO SCH ×2 (06:41→18:00)
[2018-03-27] MEDS: DOCUSATE SODIUM 100 MG CAPSULE PO SCH (07:39)
[2018-03-27] MEDS: LORATADINE 10 MG TABLET PO SCH (07:39)
[2018-03-27] MEDS: MULTIVITAMINS WITH MINERALS, THERAPEUTIC TABLET PO SCH (07:39)
[2018-03-27] MEDS: DIVALPROEX SODIUM 500 MG DR TABLET PO SCH ×2 (07:39→17:55)
[2018-03-27] MEDS: QUEtiapine FUMARATE 200 MG TABLET PO SCH ×2 (07:40→20:56)
[2018-03-27] MEDS: LevETIRAcetam 250 MG TABLET PO SCH ×2 (07:40→17:55)
[2018-03-27] MEDS: TOPIRAMATE 100 MG TABLET PO SCH ×3 (07:40→17:55)
[2018-03-27] MEDS: BENAZEPRIL HCL 5 MG TABLET PO SCH (07:40)
[2018-03-27] MEDS: OMEPRAZOLE 20 MG CAPSULE PO SCH (07:40)
[2018-03-27] MEDS: ASCORBIC ACID 500 MG TABLET PO SCH (07:40)
[2018-03-27] MEDS: HYPROMELLOSE 0.5% 15 ML OPHTHALMIC SOLUTION OD SCH ×3 (07:40→17:55)
[2018-03-27] MEDS: BACITRACIN 28.4 GM OINTMENT TP SCH (07:47)
[2018-03-27 11:34] LABS: GLUCOMETER DEV NAME(LOC) 3EI C; GLUCOSE,POINT OF CARE 234 MG/DL (70-110)
[2018-03-27] MEDS: INSULIN LISPRO 100 UNITS/ML SQ PRN ×2 (12:39→21:45)
[2018-03-27 15:17] VITALS: BP 110/74
[2018-03-27 16:44] LABS: GLUCOMETER DEV NAME(LOC) 3EI C; GLUCOSE,POINT OF CARE 139 MG/DL (70-110)
[2018-03-27 17:37] VITALS: BP 136/74
[2018-03-27 21:34] LABS: GLUCOMETER DEV NAME(LOC) 3EI C; GLUCOSE,POINT OF CARE 188 MG/DL (70-110)
[2018-03-28 05:34] LABS: GLUCOMETER DEV NAME(LOC) 3EI C; GLUCOSE,POINT OF CARE 172 MG/DL (70-110)
[2018-03-28] MEDS: MetFORMIN HCL 500 MG TABLET PO SCH ×2 (06:41→16:27)
[2018-03-28] MEDS: FERROUS SULFATE 325 MG EC TABLET PO SCH ×2 (06:41→16:27)
[2018-03-28] MEDS: INSULIN LISPRO 100 UNITS/ML SQ PRN ×3 (07:21→20:46)
[2018-03-28] MEDS: DOCUSATE SODIUM 100 MG CAPSULE PO SCH (08:47)
[2018-03-28] MEDS: LORATADINE 10 MG TABLET PO SCH (08:47)
[2018-03-28] MEDS: MULTIVITAMINS WITH MINERALS, THERAPEUTIC TABLET PO SCH (08:47)
[2018-03-28] MEDS: DIVALPROEX SODIUM 500 MG DR TABLET PO SCH ×2 (08:47→16:27)
[2018-03-28] MEDS: QUEtiapine FUMARATE 200 MG TABLET PO SCH ×2 (08:47→20:42)
[2018-03-28] MEDS: BENAZEPRIL HCL 5 MG TABLET PO SCH (08:47)
[2018-03-28] MEDS: TOPIRAMATE 100 MG TABLET PO SCH ×3 (08:47→16:28)
[2018-03-28] MEDS: ASCORBIC ACID 500 MG TABLET PO SCH (08:47)
[2018-03-28] MEDS: LevETIRAcetam 250 MG TABLET PO SCH ×2 (08:47→16:28)
[2018-03-28] MEDS: OMEPRAZOLE 20 MG CAPSULE PO SCH (08:48)
[2018-03-28] MEDS: BACITRACIN 28.4 GM OINTMENT TP SCH (08:48)
[2018-03-28] MEDS: HYPROMELLOSE 0.5% 15 ML OPHTHALMIC SOLUTION OD SCH ×3 (09:29→16:25)
[2018-03-28 11:29] LABS: GLUCOMETER DEV NAME(LOC) 3EI C; GLUCOSE,POINT OF CARE 155 MG/DL (70-110)
[2018-03-28 16:35] LABS: GLUCOMETER DEV NAME(LOC) 3EI C; GLUCOSE,POINT OF CARE 136 MG/DL (70-110)
[2018-03-28 19:39] VITALS: BP 113/79
[2018-03-29] MEDS: MetFORMIN HCL 500 MG TABLET PO SCH ×2 (06:56→17:42)
[2018-03-29] MEDS: FERROUS SULFATE 325 MG EC TABLET PO SCH ×2 (06:56→17:42)
[2018-03-29] MEDS: INSULIN LISPRO 100 UNITS/ML SQ PRN ×4 (06:57→20:50)
[2018-03-29] MEDS: DIVALPROEX SODIUM 500 MG DR TABLET PO SCH ×2 (09:45→17:42)
[2018-03-29] MEDS: TOPIRAMATE 100 MG TABLET PO SCH ×3 (09:45→17:42)
[2018-03-29] MEDS: LORATADINE 10 MG TABLET PO SCH (09:45)
[2018-03-29] MEDS: QUEtiapine FUMARATE 200 MG TABLET PO SCH ×2 (09:45→21:42)
[2018-03-29] MEDS: MULTIVITAMINS WITH MINERALS, THERAPEUTIC TABLET PO SCH (09:45)
[2018-03-29] MEDS: ASCORBIC ACID 500 MG TABLET PO SCH (09:45)
[2018-03-29] MEDS: BENAZEPRIL HCL 5 MG TABLET PO SCH (09:45)
[2018-03-29] MEDS: LevETIRAcetam 250 MG TABLET PO SCH ×2 (09:45→17:42)
[2018-03-29] MEDS: BACITRACIN 28.4 GM OINTMENT TP SCH (09:46)
[2018-03-29] MEDS: OMEPRAZOLE 20 MG CAPSULE PO SCH (09:46)
[2018-03-29] MEDS: DOCUSATE SODIUM 100 MG CAPSULE PO SCH (09:51)
[2018-03-29] MEDS: HYPROMELLOSE 0.5% 15 ML OPHTHALMIC SOLUTION OD SCH ×3 (09:51→17:42)
[2018-03-29 11:26] LABS: GLUCOMETER DEV NAME(LOC) 3EI C; GLUCOSE,POINT OF CARE 189 MG/DL (70-110)
[2018-03-29 11:31] LABS: GLUCOMETER DEV NAME(LOC) 3EI C; GLUCOSE,POINT OF CARE 187 MG/DL (70-110)
[2018-03-29 11:32] LABS: GLUCOMETER DEV NAME(LOC) 3EI C; GLUCOSE,POINT OF CARE 165 MG/DL (70-110)
[2018-03-29 16:30] VITALS: BP 116/81
[2018-03-29 16:48] LABS: GLUCOMETER DEV NAME(LOC) 3EI C; GLUCOSE,POINT OF CARE 182 MG/DL (70-110)
[2018-03-29 20:48] LABS: GLUCOMETER DEV NAME(LOC) 3EI C; GLUCOSE,POINT OF CARE 161 MG/DL (70-110)
[2018-03-30 05:55] LABS: GLUCOMETER DEV NAME(LOC) 3EI C; GLUCOSE,POINT OF CARE 102 MG/DL (70-110)
[2018-03-30] MEDS: FERROUS SULFATE 325 MG EC TABLET PO SCH ×2 (06:38→17:45)
[2018-03-30] MEDS: MetFORMIN HCL 500 MG TABLET PO SCH ×2 (06:38→17:45)
[2018-03-30] MEDS: QUEtiapine FUMARATE 200 MG TABLET PO SCH ×2 (11:17→21:46)
[2018-03-30] MEDS: DIVALPROEX SODIUM 500 MG DR TABLET PO SCH ×2 (11:17→17:45)
[2018-03-30] MEDS: LORATADINE 10 MG TABLET PO SCH (11:17)
[2018-03-30] MEDS: BENAZEPRIL HCL 5 MG TABLET PO SCH (11:18)
[2018-03-30] MEDS: TOPIRAMATE 100 MG TABLET PO SCH ×3 (11:18→17:45)
[2018-03-30] MEDS: ASCORBIC ACID 500 MG TABLET PO SCH (11:18)
[2018-03-30] MEDS: DOCUSATE SODIUM 100 MG CAPSULE PO SCH (11:18)
[2018-03-30] MEDS: BACITRACIN 28.4 GM OINTMENT TP SCH (11:18)
[2018-03-30] MEDS: LevETIRAcetam 250 MG TABLET PO SCH ×2 (11:18→17:45)
[2018-03-30] MEDS: HYPROMELLOSE 0.5% 15 ML OPHTHALMIC SOLUTION OD SCH ×3 (11:18→17:46)
[2018-03-30] MEDS: OMEPRAZOLE 20 MG CAPSULE PO SCH (11:18)
[2018-03-30] MEDS: MULTIVITAMINS WITH MINERALS, THERAPEUTIC TABLET PO SCH (11:18)
[2018-03-30 11:25] LABS: GLUCOMETER DEV NAME(LOC) 3EI C; GLUCOSE,POINT OF CARE 117 MG/DL (70-110)
[2018-03-30 16:42] VITALS: BP 114/79
[2018-03-30 17:21] LABS: GLUCOMETER DEV NAME(LOC) 3EI C; GLUCOSE,POINT OF CARE 93 MG/DL (70-110)
[2018-03-30] MEDS: INSULIN LISPRO 100 UNITS/ML SQ PRN (21:54)
[2018-03-30 22:04] LABS: GLUCOMETER DEV NAME(LOC) 3EI C; GLUCOSE,POINT OF CARE 172 MG/DL (70-110)
[2018-03-31 05:44] LABS: GLUCOMETER DEV NAME(LOC) 3EI C; GLUCOSE,POINT OF CARE 129 MG/DL (70-110)
[2018-03-31] MEDS: FERROUS SULFATE 325 MG EC TABLET PO SCH ×2 (07:05→17:40)
[2018-03-31] MEDS: MetFORMIN HCL 500 MG TABLET PO SCH ×2 (07:05→17:40)
[2018-03-31] MEDS: INSULIN LISPRO 100 UNITS/ML SQ PRN ×4 (07:12→21:54)
[2018-03-31] MEDS: MULTIVITAMINS WITH MINERALS, THERAPEUTIC TABLET PO SCH (08:43)
[2018-03-31] MEDS: QUEtiapine FUMARATE 200 MG TABLET PO SCH ×2 (08:43→21:32)
[2018-03-31] MEDS: DOCUSATE SODIUM 100 MG CAPSULE PO SCH (08:43)
[2018-03-31] MEDS: LORATADINE 10 MG TABLET PO SCH (08:43)
[2018-03-31] MEDS: TOPIRAMATE 100 MG TABLET PO SCH ×3 (08:43→17:39)
[2018-03-31] MEDS: BENAZEPRIL HCL 5 MG TABLET PO SCH (08:43)
[2018-03-31] MEDS: ASCORBIC ACID 500 MG TABLET PO SCH (08:44)
[2018-03-31] MEDS: LevETIRAcetam 250 MG TABLET PO SCH ×2 (08:44→17:40)
[2018-03-31] MEDS: OMEPRAZOLE 20 MG CAPSULE PO SCH (08:44)
[2018-03-31] MEDS: BACITRACIN 28.4 GM OINTMENT TP SCH (08:44)
[2018-03-31] MEDS: DIVALPROEX SODIUM 500 MG DR TABLET PO SCH ×2 (08:44→17:40)
[2018-03-31] MEDS: HYPROMELLOSE 0.5% 15 ML OPHTHALMIC SOLUTION OD SCH ×3 (08:44→17:40)
[2018-03-31 11:55] LABS: GLUCOMETER DEV NAME(LOC) 3EI C; GLUCOSE,POINT OF CARE 208 MG/DL (70-110)
[2018-03-31 16:51] VITALS: BP 116/78
[2018-03-31 21:06] LABS: GLUCOMETER DEV NAME(LOC) 3EI C; GLUCOSE,POINT OF CARE 159 MG/DL (70-110)
[2018-04-01 04:05] LABS: GLUCOMETER DEV NAME(LOC) 3EI C; GLUCOSE,POINT OF CARE 166 MG/DL (70-110)
[2018-04-01] MEDS: MetFORMIN HCL 500 MG TABLET PO SCH ×2 (06:59→17:19)
[2018-04-01] MEDS: FERROUS SULFATE 325 MG EC TABLET PO SCH ×2 (06:59→17:19)
[2018-04-01] MEDS: INSULIN LISPRO 100 UNITS/ML SQ PRN ×3 (07:04→21:17)
[2018-04-01] MEDS: MULTIVITAMINS WITH MINERALS, THERAPEUTIC TABLET PO SCH (08:23)
[2018-04-01] MEDS: DIVALPROEX SODIUM 500 MG DR TABLET PO SCH ×2 (08:23→17:20)
[2018-04-01] MEDS: OMEPRAZOLE 20 MG CAPSULE PO SCH (08:23)
[2018-04-01] MEDS: DOCUSATE SODIUM 100 MG CAPSULE PO SCH (08:23)
[2018-04-01] MEDS: LORATADINE 10 MG TABLET PO SCH (08:23)
[2018-04-01] MEDS: QUEtiapine FUMARATE 200 MG TABLET PO SCH ×2 (08:23→20:30)
[2018-04-01] MEDS: TOPIRAMATE 100 MG TABLET PO SCH ×3 (08:24→17:18)
[2018-04-01] MEDS: LevETIRAcetam 250 MG TABLET PO SCH ×2 (08:24→17:19)
[2018-04-01] MEDS: BACITRACIN 28.4 GM OINTMENT TP SCH (08:24)
[2018-04-01] MEDS: HYPROMELLOSE 0.5% 15 ML OPHTHALMIC SOLUTION OD SCH ×3 (08:24→17:18)
[2018-04-01] MEDS: BENAZEPRIL HCL 5 MG TABLET PO SCH (08:24)
[2018-04-01] MEDS: ASCORBIC ACID 500 MG TABLET PO SCH (09:43)
[2018-04-01 10:52] LABS: GLUCOMETER DEV NAME(LOC) 3EI C; GLUCOSE,POINT OF CARE 203 MG/DL (70-110)
[2018-04-01 16:26] VITALS: BP 119/77
[2018-04-01 22:15] LABS: GLUCOMETER DEV NAME(LOC) 3EI C; GLUCOSE,POINT OF CARE 184 MG/DL (70-110)
[2018-04-02] MEDS: MetFORMIN HCL 500 MG TABLET PO SCH ×2 (06:30→17:16)
[2018-04-02] MEDS: FERROUS SULFATE 325 MG EC TABLET PO SCH ×2 (06:30→17:16)
[2018-04-02 08:00] VITALS: BP 128/94
[2018-04-02] MEDS: LevETIRAcetam 250 MG TABLET PO SCH ×2 (08:09→17:16)
[2018-04-02] MEDS: DOCUSATE SODIUM 100 MG CAPSULE PO SCH (08:09)
[2018-04-02] MEDS: DIVALPROEX SODIUM 500 MG DR TABLET PO SCH ×2 (08:09→17:16)
[2018-04-02] MEDS: TOPIRAMATE 100 MG TABLET PO SCH ×3 (08:09→17:16)
[2018-04-02] MEDS: MULTIVITAMINS WITH MINERALS, THERAPEUTIC TABLET PO SCH (08:09)
[2018-04-02] MEDS: ASCORBIC ACID 500 MG TABLET PO SCH (08:10)
[2018-04-02] MEDS: BENAZEPRIL HCL 5 MG TABLET PO SCH (08:11)
[2018-04-02] MEDS: OMEPRAZOLE 20 MG CAPSULE PO SCH (08:11)
[2018-04-02] MEDS: LORATADINE 10 MG TABLET PO SCH (08:11)
[2018-04-02] MEDS: HYPROMELLOSE 0.5% 15 ML OPHTHALMIC SOLUTION OD SCH ×3 (08:11→17:17)
[2018-04-02] MEDS: QUEtiapine FUMARATE 200 MG TABLET PO SCH ×2 (08:11→20:32)
[2018-04-02 09:15] LABS: GLUCOMETER DEV NAME(LOC) 3EI C; GLUCOSE,POINT OF CARE 131 MG/DL (70-110)
[2018-04-02] MEDS: BACITRACIN 28.4 GM OINTMENT TP SCH ×2 (10:15→12:53)
[2018-04-02] MEDS: INSULIN LISPRO 100 UNITS/ML SQ PRN ×3 (11:43→20:39)
[2018-04-02 14:16] LABS: GLUCOMETER DEV NAME(LOC) 3EI C; GLUCOSE,POINT OF CARE 173 MG/DL (70-110)
[2018-04-02 17:07] VITALS: BP 121/82
[2018-04-02 23:14] LABS: GLUCOMETER DEV NAME(LOC) 3EI C; GLUCOSE,POINT OF CARE 133 MG/DL (70-110)
[2018-04-03] MEDS: INSULIN LISPRO 100 UNITS/ML SQ PRN ×2 (06:58→12:08)
[2018-04-03] MEDS: MetFORMIN HCL 500 MG TABLET PO SCH ×2 (06:58→17:28)
[2018-04-03] MEDS: FERROUS SULFATE 325 MG EC TABLET PO SCH ×2 (06:58→17:28)
[2018-04-03 08:05] VITALS: BP 115/84
[2018-04-03] MEDS: DIVALPROEX SODIUM 500 MG DR TABLET PO SCH ×2 (08:13→17:28)
[2018-04-03] MEDS: LORATADINE 10 MG TABLET PO SCH (08:13)
[2018-04-03] MEDS: QUEtiapine FUMARATE 200 MG TABLET PO SCH ×2 (08:13→20:51)
[2018-04-03] MEDS: DOCUSATE SODIUM 100 MG CAPSULE PO SCH (08:13)
[2018-04-03] MEDS: HYPROMELLOSE 0.5% 15 ML OPHTHALMIC SOLUTION OD SCH ×3 (08:14→17:28)
[2018-04-03] MEDS: TOPIRAMATE 100 MG TABLET PO SCH ×3 (08:14→17:28)
[2018-04-03] MEDS: BENAZEPRIL HCL 5 MG TABLET PO SCH (08:14)
[2018-04-03] MEDS: ASCORBIC ACID 500 MG TABLET PO SCH (08:14)
[2018-04-03] MEDS: MULTIVITAMINS WITH MINERALS, THERAPEUTIC TABLET PO SCH (08:14)
[2018-04-03] MEDS: OMEPRAZOLE 20 MG CAPSULE PO SCH (08:14)
[2018-04-03] MEDS: LevETIRAcetam 250 MG TABLET PO SCH ×2 (08:14→17:28)
[2018-04-03] MEDS: BACITRACIN 28.4 GM OINTMENT TP SCH (08:15)
[2018-04-03 09:27] LABS: GLUCOMETER DEV NAME(LOC) 3EI C; GLUCOSE,POINT OF CARE 187 MG/DL (70-110)
[2018-04-03 15:57] LABS: GLUCOMETER DEV NAME(LOC) 3EI C; GLUCOSE,POINT OF CARE 190 MG/DL (70-110)
[2018-04-03 16:00] VITALS: BP 119/77
[2018-04-03 16:19] LABS: GLUCOMETER DEV NAME(LOC) 3EI C; GLUCOSE,POINT OF CARE 168 MG/DL (70-110)
[2018-04-03 16:43] LABS: GLUCOMETER DEV NAME(LOC) 3EI C; GLUCOSE,POINT OF CARE 143 MG/DL (70-110)
[2018-04-03 16:44] LABS: GLUCOMETER DEV NAME(LOC) 3EI C; GLUCOSE,POINT OF CARE 141 MG/DL (70-110)
[2018-04-03 17:45] LABS: GLUCOMETER DEV NAME(LOC) 3EI C; GLUCOSE,POINT OF CARE 101 MG/DL (70-110)
[2018-04-03 21:07] LABS: GLUCOMETER DEV NAME(LOC) 3EI C; GLUCOSE,POINT OF CARE 117 MG/DL (70-110)
[2018-04-04 05:50] LABS: GLUCOMETER DEV NAME(LOC) 3EI C; GLUCOSE,POINT OF CARE 94 MG/DL (70-110)
[2018-04-04] MEDS: MetFORMIN HCL 500 MG TABLET PO SCH ×2 (06:51→17:40)
[2018-04-04] MEDS: FERROUS SULFATE 325 MG EC TABLET PO SCH ×2 (06:51→17:40)
[2018-04-04 08:25] VITALS: BP 113/74
[2018-04-04] MEDS: TOPIRAMATE 100 MG TABLET PO SCH ×3 (10:16→17:40)
[2018-04-04] MEDS: LevETIRAcetam 250 MG TABLET PO SCH ×2 (10:16→17:40)
[2018-04-04] MEDS: DIVALPROEX SODIUM 500 MG DR TABLET PO SCH ×2 (10:16→17:40)
[2018-04-04] MEDS: OMEPRAZOLE 20 MG CAPSULE PO SCH (10:16)
[2018-04-04] MEDS: QUEtiapine FUMARATE 200 MG TABLET PO SCH ×2 (10:16→21:16)
[2018-04-04] MEDS: MULTIVITAMINS WITH MINERALS, THERAPEUTIC TABLET PO SCH (10:17)
[2018-04-04] MEDS: BENAZEPRIL HCL 5 MG TABLET PO SCH (10:17)
[2018-04-04] MEDS: DOCUSATE SODIUM 100 MG CAPSULE PO SCH (10:17)
[2018-04-04] MEDS: LORATADINE 10 MG TABLET PO SCH (10:17)
[2018-04-04] MEDS: ASCORBIC ACID 500 MG TABLET PO SCH (10:17)
[2018-04-04] MEDS: HYPROMELLOSE 0.5% 15 ML OPHTHALMIC SOLUTION OD SCH ×3 (10:18→17:40)
[2018-04-04] MEDS: BACITRACIN 28.4 GM OINTMENT TP SCH (10:39)
[2018-04-04 11:09] LABS: GLUCOMETER DEV NAME(LOC) 3EI C; GLUCOSE,POINT OF CARE 156 MG/DL (70-110)
[2018-04-04] MEDS: INSULIN LISPRO 100 UNITS/ML SQ PRN (11:37)
[2018-04-04 17:09] VITALS: BP 110/73
[2018-04-04 17:54] LABS: GLUCOMETER DEV NAME(LOC) 3EI C; GLUCOSE,POINT OF CARE 135 MG/DL (70-110)
[2018-04-04 21:28] LABS: GLUCOMETER DEV NAME(LOC) 3EI C; GLUCOSE,POINT OF CARE 113 MG/DL (70-110)
[2018-04-05 05:24] LABS: GLUCOMETER DEV NAME(LOC) 3EI C; GLUCOSE,POINT OF CARE 156 MG/DL (70-110)
[2018-04-05] MEDS: FERROUS SULFATE 325 MG EC TABLET PO SCH ×2 (06:58→17:23)
[2018-04-05] MEDS: MetFORMIN HCL 500 MG TABLET PO SCH ×2 (06:58→17:23)
[2018-04-05 08:00] VITALS: BP 111/65
[2018-04-05] MEDS: DIVALPROEX SODIUM 500 MG DR TABLET PO SCH ×2 (11:21→17:23)
[2018-04-05] MEDS: MULTIVITAMINS WITH MINERALS, THERAPEUTIC TABLET PO SCH (11:21)
[2018-04-05] MEDS: QUEtiapine FUMARATE 200 MG TABLET PO SCH ×2 (11:21→20:58)
[2018-04-05] MEDS: DOCUSATE SODIUM 100 MG CAPSULE PO SCH (11:21)
[2018-04-05] MEDS: LORATADINE 10 MG TABLET PO SCH (11:21)
[2018-04-05] MEDS: OMEPRAZOLE 20 MG CAPSULE PO SCH (11:21)
[2018-04-05] MEDS: HYPROMELLOSE 0.5% 15 ML OPHTHALMIC SOLUTION OD SCH ×3 (11:22→17:23)
[2018-04-05] MEDS: LevETIRAcetam 250 MG TABLET PO SCH ×2 (11:22→17:23)
[2018-04-05] MEDS: BENAZEPRIL HCL 5 MG TABLET PO SCH (11:22)
[2018-04-05] MEDS: TOPIRAMATE 100 MG TABLET PO SCH ×3 (11:23→17:23)
[2018-04-05] MEDS: ASCORBIC ACID 500 MG TABLET PO SCH (11:23)
[2018-04-05] MEDS: BACITRACIN 28.4 GM OINTMENT TP SCH (11:23)
[2018-04-05 11:49] LABS: GLUCOMETER DEV NAME(LOC) 3EI C; GLUCOSE,POINT OF CARE 227 MG/DL (70-110)
[2018-04-05] MEDS: INSULIN LISPRO 100 UNITS/ML SQ PRN ×4 (12:08→21:20)
[2018-04-05 16:37] VITALS: BP 112/65
[2018-04-05 16:59] LABS: GLUCOMETER DEV NAME(LOC) 3EI C; GLUCOSE,POINT OF CARE 211 MG/DL (70-110)
[2018-04-05 20:44] LABS: GLUCOMETER DEV NAME(LOC) 3EI C; GLUCOSE,POINT OF CARE 143 MG/DL (70-110)
[2018-04-06 05:49] LABS: GLUCOMETER DEV NAME(LOC) 3EI C; GLUCOSE,POINT OF CARE 145 MG/DL (70-110)
[2018-04-06] MEDS: MetFORMIN HCL 500 MG TABLET PO SCH ×2 (06:55→16:32)
[2018-04-06] MEDS: FERROUS SULFATE 325 MG EC TABLET PO SCH ×2 (06:55→16:32)
[2018-04-06] MEDS: LEVOTHYROXINE SODIUM 50 MCG TABLET PO SCH (06:56)
[2018-04-06] MEDS: INSULIN LISPRO 100 UNITS/ML SQ PRN ×2 (07:14→21:02)
[2018-04-06] MEDS: DOCUSATE SODIUM 100 MG CAPSULE PO SCH (10:23)
[2018-04-06] MEDS: TOPIRAMATE 100 MG TABLET PO SCH ×3 (10:24→16:32)
[2018-04-06] MEDS: DIVALPROEX SODIUM 500 MG DR TABLET PO SCH ×2 (10:24→16:32)
[2018-04-06] MEDS: SIMVASTATIN 20 MG TABLET PO SCH (10:24)
[2018-04-06] MEDS: OMEPRAZOLE 20 MG CAPSULE PO SCH (10:24)
[2018-04-06] MEDS: ASPIRIN 81 MG CHEWABLE TABLET PO SCH (10:24)
[2018-04-06] MEDS: LevETIRAcetam 250 MG TABLET PO SCH ×2 (10:25→16:32)
[2018-04-06] MEDS: QUEtiapine FUMARATE 200 MG TABLET PO SCH ×2 (10:25→20:52)
[2018-04-06] MEDS: BENAZEPRIL HCL 5 MG TABLET PO SCH (10:25)
[2018-04-06] MEDS: LORATADINE 10 MG TABLET PO SCH (10:25)
[2018-04-06] MEDS: ASCORBIC ACID 500 MG TABLET PO SCH (10:26)
[2018-04-06] MEDS: OXYBUTYNIN CHLORIDE 5 MG ER TABLET PO SCH (10:26)
[2018-04-06] MEDS: MULTIVITAMINS WITH MINERALS, THERAPEUTIC TABLET PO SCH (10:26)
[2018-04-06] MEDS: HYPROMELLOSE 0.5% 15 ML OPHTHALMIC SOLUTION OD SCH ×3 (10:26→16:34)
[2018-04-06] MEDS: BACITRACIN 28.4 GM OINTMENT TP SCH (10:26)
[2018-04-06 11:19] LABS: GLUCOMETER DEV NAME(LOC) 3EI C; GLUCOSE,POINT OF CARE 121 MG/DL (70-110)
[2018-04-06 16:06] VITALS: BP 119/65
[2018-04-06 16:39] LABS: GLUCOMETER DEV NAME(LOC) 3EI C; GLUCOSE,POINT OF CARE 136 MG/DL (70-110)
[2018-04-06 21:09] LABS: GLUCOMETER DEV NAME(LOC) 3EI C; GLUCOSE,POINT OF CARE 143 MG/DL (70-110)
[2018-04-07 05:39] LABS: GLUCOMETER DEV NAME(LOC) 3EI C; GLUCOSE,POINT OF CARE 174 MG/DL (70-110)
[2018-04-07] MEDS: LEVOTHYROXINE SODIUM 50 MCG TABLET PO SCH (07:00)
[2018-04-07] MEDS: FERROUS SULFATE 325 MG EC TABLET PO SCH ×2 (07:03→16:37)
[2018-04-07] MEDS: MetFORMIN HCL 500 MG TABLET PO SCH ×2 (07:03→16:38)
[2018-04-07] MEDS: INSULIN LISPRO 100 UNITS/ML SQ PRN ×2 (07:18→17:43)
[2018-04-07 08:00] VITALS: BP 129/89
[2018-04-07] MEDS: LORazepam 2 MG TABLET PO PRN (08:01)
[2018-04-07] MEDS: DIVALPROEX SODIUM 500 MG DR TABLET PO SCH ×2 (08:01→16:37)
[2018-04-07] MEDS: QUEtiapine FUMARATE 200 MG TABLET PO SCH ×2 (08:02→20:44)
[2018-04-07] MEDS: ASPIRIN 81 MG CHEWABLE TABLET PO SCH (08:02)
[2018-04-07] MEDS: DOCUSATE SODIUM 100 MG CAPSULE PO SCH (08:03)
[2018-04-07] MEDS: OMEPRAZOLE 20 MG CAPSULE PO SCH (08:03)
[2018-04-07] MEDS: SIMVASTATIN 20 MG TABLET PO SCH (08:03)
[2018-04-07] MEDS: BENAZEPRIL HCL 5 MG TABLET PO SCH (08:06)
[2018-04-07] MEDS: MULTIVITAMINS WITH MINERALS, THERAPEUTIC TABLET PO SCH (08:06)
[2018-04-07] MEDS: LevETIRAcetam 250 MG TABLET PO SCH ×2 (08:06→16:37)
[2018-04-07] MEDS: TOPIRAMATE 100 MG TABLET PO SCH ×3 (08:06→16:37)
[2018-04-07] MEDS: ASCORBIC ACID 500 MG TABLET PO SCH (08:06)
[2018-04-07] MEDS: OXYBUTYNIN CHLORIDE 5 MG ER TABLET PO SCH (08:06)
[2018-04-07] MEDS: LORATADINE 10 MG TABLET PO SCH (08:06)
[2018-04-07] MEDS: HYPROMELLOSE 0.5% 15 ML OPHTHALMIC SOLUTION OD SCH ×3 (08:11→16:39)
[2018-04-07 11:44] LABS: GLUCOMETER DEV NAME(LOC) 3EI C; GLUCOSE,POINT OF CARE 136 MG/DL (70-110)
[2018-04-07] MEDS: BACITRACIN 28.4 GM OINTMENT TP SCH (14:00)
[2018-04-07 16:22] VITALS: BP 137/78
[2018-04-07 16:44] LABS: GLUCOMETER DEV NAME(LOC) 3EI C; GLUCOSE,POINT OF CARE 143 MG/DL (70-110)
[2018-04-07 21:29] LABS: GLUCOMETER DEV NAME(LOC) 3EI C; GLUCOSE,POINT OF CARE 156 MG/DL (70-110)
[2018-04-08 05:35] LABS: GLUCOMETER DEV NAME(LOC) 3EI C; GLUCOSE,POINT OF CARE 112 MG/DL (70-110)
[2018-04-08] MEDS: FERROUS SULFATE 325 MG EC TABLET PO SCH ×2 (06:52→17:13)
[2018-04-08] MEDS: MetFORMIN HCL 500 MG TABLET PO SCH ×2 (06:52→17:13)
[2018-04-08] MEDS: LEVOTHYROXINE SODIUM 50 MCG TABLET PO SCH (06:53)
[2018-04-08] MEDS: INSULIN LISPRO 100 UNITS/ML SQ PRN ×4 (06:53→21:19)
[2018-04-08] MEDS: DIVALPROEX SODIUM 500 MG DR TABLET PO SCH ×2 (08:45→17:13)
[2018-04-08] MEDS: QUEtiapine FUMARATE 200 MG TABLET PO SCH ×2 (08:45→20:48)
[2018-04-08] MEDS: ASPIRIN 81 MG CHEWABLE TABLET PO SCH (08:45)
[2018-04-08] MEDS: OXYBUTYNIN CHLORIDE 5 MG ER TABLET PO SCH (08:45)
[2018-04-08] MEDS: MULTIVITAMINS WITH MINERALS, THERAPEUTIC TABLET PO SCH (08:45)
[2018-04-08] MEDS: SIMVASTATIN 20 MG TABLET PO SCH (08:45)
[2018-04-08] MEDS: LORATADINE 10 MG TABLET PO SCH (08:45)
[2018-04-08] MEDS: ASCORBIC ACID 500 MG TABLET PO SCH (08:46)
[2018-04-08] MEDS: TOPIRAMATE 100 MG TABLET PO SCH ×3 (08:46→17:13)
[2018-04-08] MEDS: BACITRACIN 28.4 GM OINTMENT TP SCH (08:46)
[2018-04-08] MEDS: BENAZEPRIL HCL 5 MG TABLET PO SCH (08:46)
[2018-04-08] MEDS: LevETIRAcetam 250 MG TABLET PO SCH ×2 (08:46→17:13)
[2018-04-08] MEDS: LORazepam 2 MG TABLET PO PRN (08:47)
[2018-04-08 11:59] LABS: GLUCOMETER DEV NAME(LOC) 3EI C; GLUCOSE,POINT OF CARE 158 MG/DL (70-110)
[2018-04-08] MEDS: HYPROMELLOSE 0.5% 15 ML OPHTHALMIC SOLUTION OD PRN (17:13)
[2018-04-08 17:19] LABS: GLUCOMETER DEV NAME(LOC) 3EI C; GLUCOSE,POINT OF CARE 180 MG/DL (70-110)
[2018-04-08 20:16] VITALS: BP 126/79
[2018-04-08 21:24] LABS: GLUCOMETER DEV NAME(LOC) 3EI C; GLUCOSE,POINT OF CARE 260 MG/DL (70-110)
[2018-04-09 05:59] LABS: GLUCOMETER DEV NAME(LOC) 3EI C; GLUCOSE,POINT OF CARE 154 MG/DL (70-110)
[2018-04-09] MEDS: LEVOTHYROXINE SODIUM 50 MCG TABLET PO SCH (07:00)
[2018-04-09] MEDS: FERROUS SULFATE 325 MG EC TABLET PO SCH ×2 (07:04→17:52)
[2018-04-09] MEDS: MetFORMIN HCL 500 MG TABLET PO SCH ×2 (07:04→17:52)
[2018-04-09] MEDS: QUEtiapine FUMARATE 200 MG TABLET PO SCH ×2 (08:43→20:53)
[2018-04-09] MEDS: LORATADINE 10 MG TABLET PO SCH (08:44)
[2018-04-09] MEDS: ASPIRIN 81 MG CHEWABLE TABLET PO SCH (08:44)
[2018-04-09] MEDS: SIMVASTATIN 20 MG TABLET PO SCH (08:44)
[2018-04-09] MEDS: ASCORBIC ACID 500 MG TABLET PO SCH (08:44)
[2018-04-09] MEDS: DIVALPROEX SODIUM 500 MG DR TABLET PO SCH ×2 (08:44→17:52)
[2018-04-09] MEDS: TOPIRAMATE 100 MG TABLET PO SCH ×3 (08:44→17:52)
[2018-04-09] MEDS: LevETIRAcetam 250 MG TABLET PO SCH ×2 (08:44→17:52)
[2018-04-09] MEDS: MULTIVITAMINS WITH MINERALS, THERAPEUTIC TABLET PO SCH (08:44)
[2018-04-09] MEDS: BENAZEPRIL HCL 5 MG TABLET PO SCH (08:44)
[2018-04-09] MEDS: BACITRACIN 28.4 GM OINTMENT TP SCH (08:45)
[2018-04-09] MEDS: OXYBUTYNIN CHLORIDE 5 MG ER TABLET PO SCH (08:45)
[2018-04-09 09:20] VITALS: BP 128/56
[2018-04-09 11:44] LABS: GLUCOMETER DEV NAME(LOC) 3EI C; GLUCOSE,POINT OF CARE 262 MG/DL (70-110)
[2018-04-09] MEDS: INSULIN LISPRO 100 UNITS/ML SQ PRN ×3 (12:45→21:09)
[2018-04-09 16:34] LABS: GLUCOMETER DEV NAME(LOC) 3EI C; GLUCOSE,POINT OF CARE 164 MG/DL (70-110)
[2018-04-09 21:15] LABS: GLUCOMETER DEV NAME(LOC) 3EI C; GLUCOSE,POINT OF CARE 180 MG/DL (70-110)
[2018-04-10 06:09] LABS: GLUCOMETER DEV NAME(LOC) 3EI C; GLUCOSE,POINT OF CARE 106 MG/DL (70-110)
[2018-04-10] MEDS: FERROUS SULFATE 325 MG EC TABLET PO SCH ×2 (07:00→17:52)
[2018-04-10] MEDS: LEVOTHYROXINE SODIUM 50 MCG TABLET PO SCH (07:00)
[2018-04-10] MEDS: MetFORMIN HCL 500 MG TABLET PO SCH ×2 (07:00→17:52)
[2018-04-10] MEDS: INSULIN LISPRO 100 UNITS/ML SQ PRN ×3 (07:18→21:24)
[2018-04-10] MEDS: LORATADINE 10 MG TABLET PO SCH (09:06)
[2018-04-10] MEDS: DIVALPROEX SODIUM 500 MG DR TABLET PO SCH ×2 (09:06→17:52)
[2018-04-10] MEDS: QUEtiapine FUMARATE 200 MG TABLET PO SCH ×2 (09:06→20:51)
[2018-04-10] MEDS: LORazepam 2 MG TABLET PO PRN (09:06)
[2018-04-10] MEDS: ASPIRIN 81 MG CHEWABLE TABLET PO SCH (09:06)
[2018-04-10] MEDS: MULTIVITAMINS WITH MINERALS, THERAPEUTIC TABLET PO SCH (09:07)
[2018-04-10] MEDS: LevETIRAcetam 250 MG TABLET PO SCH ×2 (09:07→17:52)
[2018-04-10] MEDS: TOPIRAMATE 100 MG TABLET PO SCH ×3 (09:07→17:52)
[2018-04-10] MEDS: BENAZEPRIL HCL 5 MG TABLET PO SCH (09:07)
[2018-04-10] MEDS: SIMVASTATIN 20 MG TABLET PO SCH (09:07)
[2018-04-10] MEDS: OXYBUTYNIN CHLORIDE 5 MG ER TABLET PO SCH (09:08)
[2018-04-10] MEDS: ASCORBIC ACID 500 MG TABLET PO SCH (09:08)
[2018-04-10] MEDS: BACITRACIN 28.4 GM OINTMENT TP SCH (10:23)
[2018-04-10 11:09] LABS: GLUCOMETER DEV NAME(LOC) 3EI C; GLUCOSE,POINT OF CARE 150 MG/DL (70-110)
[2018-04-10 13:00] VITALS: BP 126/77
[2018-04-10 18:09] LABS: GLUCOMETER DEV NAME(LOC) 3EI C; GLUCOSE,POINT OF CARE 90 MG/DL (70-110)
[2018-04-10 21:39] LABS: GLUCOMETER DEV NAME(LOC) 3EI C; GLUCOSE,POINT OF CARE 167 MG/DL (70-110)
[2018-04-11 06:09] LABS: GLUCOMETER DEV NAME(LOC) 3EI C; GLUCOSE,POINT OF CARE 97 MG/DL (70-110)
[2018-04-11] MEDS: MetFORMIN HCL 500 MG TABLET PO SCH ×2 (06:51→17:05)
[2018-04-11] MEDS: LEVOTHYROXINE SODIUM 50 MCG TABLET PO SCH (06:51)
[2018-04-11] MEDS: FERROUS SULFATE 325 MG EC TABLET PO SCH ×2 (06:51→17:05)
[2018-04-11] MEDS: DIVALPROEX SODIUM 500 MG DR TABLET PO SCH ×4 (09:00→17:05)
[2018-04-11] MEDS: OXYBUTYNIN CHLORIDE 5 MG ER TABLET PO SCH ×3 (09:00→14:30)
[2018-04-11] MEDS: MULTIVITAMINS WITH MINERALS, THERAPEUTIC TABLET PO SCH ×3 (09:00→14:30)
[2018-04-11] MEDS: BACITRACIN 28.4 GM OINTMENT TP SCH (09:00)
[2018-04-11] MEDS: ASCORBIC ACID 500 MG TABLET PO SCH ×3 (09:00→14:30)
[2018-04-11] MEDS: TOPIRAMATE 100 MG TABLET PO SCH ×5 (09:00→17:05)
[2018-04-11] MEDS: LORATADINE 10 MG TABLET PO SCH ×3 (09:00→14:30)
[2018-04-11] MEDS: LevETIRAcetam 250 MG TABLET PO SCH ×4 (09:00→17:05)
[2018-04-11] MEDS: ASPIRIN 81 MG CHEWABLE TABLET PO SCH ×3 (09:00→14:30)
[2018-04-11] MEDS: BENAZEPRIL HCL 5 MG TABLET PO SCH (09:00)
[2018-04-11] MEDS: QUEtiapine FUMARATE 200 MG TABLET PO SCH ×3 (09:00→21:00)
[2018-04-11] MEDS: SIMVASTATIN 20 MG TABLET PO SCH ×3 (09:00→14:30)
[2018-04-11 09:19] VITALS: BP 121/58
[2018-04-11] MEDS: OMEPRAZOLE 20 MG CAPSULE PO PRN (10:41)
[2018-04-11 17:05] LABS: GLUCOMETER DEV NAME(LOC) 3EI C; GLUCOSE,POINT OF CARE 218 MG/DL (70-110)
[2018-04-11] MEDS: INSULIN LISPRO 100 UNITS/ML SQ PRN ×2 (17:25→21:20)
[2018-04-11 21:14] LABS: GLUCOMETER DEV NAME(LOC) 3EI C; GLUCOSE,POINT OF CARE 158 MG/DL (70-110)
[2018-04-12] MEDS: LEVOTHYROXINE SODIUM 50 MCG TABLET PO SCH (07:00)
[2018-04-12] MEDS: MetFORMIN HCL 500 MG TABLET PO SCH ×2 (07:11→17:29)
[2018-04-12] MEDS: FERROUS SULFATE 325 MG EC TABLET PO SCH ×2 (07:11→17:29)
[2018-04-12 10:09] VITALS: BP 122/77
[2018-04-12] MEDS: OMEPRAZOLE 20 MG CAPSULE PO PRN ×2 (10:45→10:48)
[2018-04-12] MEDS: HYPROMELLOSE 0.5% 15 ML OPHTHALMIC SOLUTION OD PRN (10:45)
[2018-04-12] MEDS: DIVALPROEX SODIUM 500 MG DR TABLET PO SCH ×2 (10:46→17:29)
[2018-04-12] MEDS: QUEtiapine FUMARATE 200 MG TABLET PO SCH ×2 (10:46→21:19)
[2018-04-12] MEDS: LevETIRAcetam 250 MG TABLET PO SCH ×2 (10:46→17:29)
[2018-04-12] MEDS: OXYBUTYNIN CHLORIDE 5 MG ER TABLET PO SCH (10:47)
[2018-04-12] MEDS: ASCORBIC ACID 500 MG TABLET PO SCH (10:47)
[2018-04-12] MEDS: TOPIRAMATE 100 MG TABLET PO SCH ×3 (10:47→17:29)
[2018-04-12] MEDS: ASPIRIN 81 MG CHEWABLE TABLET PO SCH (10:47)
[2018-04-12] MEDS: LORATADINE 10 MG TABLET PO SCH (10:47)
[2018-04-12] MEDS: MULTIVITAMINS WITH MINERALS, THERAPEUTIC TABLET PO SCH (10:47)
[2018-04-12] MEDS: BENAZEPRIL HCL 5 MG TABLET PO SCH (10:47)
[2018-04-12] MEDS: SIMVASTATIN 20 MG TABLET PO SCH (10:48)
[2018-04-12] MEDS: BACITRACIN 28.4 GM OINTMENT TP SCH (10:50)
[2018-04-12 11:50] LABS: GLUCOMETER DEV NAME(LOC) 3EI C; GLUCOSE,POINT OF CARE 173 MG/DL (70-110)
[2018-04-12] MEDS: INSULIN LISPRO 100 UNITS/ML SQ PRN (12:07)
[2018-04-12 16:30] VITALS: BP 123/72
[2018-04-12 18:24] LABS: GLUCOMETER DEV NAME(LOC) 3EI C; GLUCOSE,POINT OF CARE 119 MG/DL (70-110)
[2018-04-12 21:29] LABS: GLUCOMETER DEV NAME(LOC) 3EI C; GLUCOSE,POINT OF CARE 109 MG/DL (70-110)
[2018-04-13 05:40] LABS: GLUCOMETER DEV NAME(LOC) 3EI C; GLUCOSE,POINT OF CARE 79 MG/DL (70-110)
[2018-04-13] MEDS: MetFORMIN HCL 500 MG TABLET PO SCH ×2 (06:51→17:28)
[2018-04-13] MEDS: LEVOTHYROXINE SODIUM 50 MCG TABLET PO SCH (06:51)
[2018-04-13] MEDS: FERROUS SULFATE 325 MG EC TABLET PO SCH ×2 (06:51→17:28)
[2018-04-13 08:08] VITALS: BP 115/60
[2018-04-13] MEDS: LevETIRAcetam 250 MG TABLET PO SCH ×2 (10:49→17:27)
[2018-04-13] MEDS: OXYBUTYNIN CHLORIDE 5 MG ER TABLET PO SCH (10:49)
[2018-04-13] MEDS: ASCORBIC ACID 500 MG TABLET PO SCH (10:49)
[2018-04-13] MEDS: BENAZEPRIL HCL 5 MG TABLET PO SCH (10:49)
[2018-04-13] MEDS: QUEtiapine FUMARATE 200 MG TABLET PO SCH ×2 (10:49→20:09)
[2018-04-13] MEDS: DIVALPROEX SODIUM 500 MG DR TABLET PO SCH ×2 (10:49→17:27)
[2018-04-13] MEDS: TOPIRAMATE 100 MG TABLET PO SCH ×3 (10:49→17:28)
[2018-04-13] MEDS: SIMVASTATIN 20 MG TABLET PO SCH (10:50)
[2018-04-13] MEDS: MULTIVITAMINS WITH MINERALS, THERAPEUTIC TABLET PO SCH (10:50)
[2018-04-13] MEDS: LORATADINE 10 MG TABLET PO SCH (10:50)
[2018-04-13] MEDS: ASPIRIN 81 MG CHEWABLE TABLET PO SCH (10:50)
[2018-04-13 11:34] LABS: GLUCOMETER DEV NAME(LOC) 3EI C; GLUCOSE,POINT OF CARE 105 MG/DL (70-110)
[2018-04-13 16:33] VITALS: BP 119/73
[2018-04-13 17:14] LABS: GLUCOMETER DEV NAME(LOC) 3EI C; GLUCOSE,POINT OF CARE 121 MG/DL (70-110)
[2018-04-13] MEDS: INSULIN LISPRO 100 UNITS/ML SQ PRN (21:31)
[2018-04-13 21:33] LABS: GLUCOMETER DEV NAME(LOC) 3EI C; GLUCOSE,POINT OF CARE 141 MG/DL (70-110)
[2018-04-14] MEDS: LEVOTHYROXINE SODIUM 50 MCG TABLET PO SCH (06:53)
[2018-04-14] MEDS: MetFORMIN HCL 500 MG TABLET PO SCH ×2 (06:53→18:30)
[2018-04-14] MEDS: FERROUS SULFATE 325 MG EC TABLET PO SCH ×2 (06:53→18:00)
[2018-04-14 08:14] VITALS: BP 135/78
[2018-04-14] MEDS: ASPIRIN 81 MG CHEWABLE TABLET PO SCH (08:26)
[2018-04-14] MEDS: MULTIVITAMINS WITH MINERALS, THERAPEUTIC TABLET PO SCH (08:27)
[2018-04-14] MEDS: ASCORBIC ACID 500 MG TABLET PO SCH (08:27)
[2018-04-14] MEDS: BENAZEPRIL HCL 5 MG TABLET PO SCH (08:27)
[2018-04-14] MEDS: TOPIRAMATE 100 MG TABLET PO SCH ×3 (08:27→18:00)
[2018-04-14] MEDS: DIVALPROEX SODIUM 500 MG DR TABLET PO SCH ×2 (08:27→18:00)
[2018-04-14] MEDS: QUEtiapine FUMARATE 200 MG TABLET PO SCH ×2 (08:27→20:49)
[2018-04-14] MEDS: LevETIRAcetam 250 MG TABLET PO SCH ×2 (08:27→18:00)
[2018-04-14] MEDS: LORATADINE 10 MG TABLET PO SCH (08:27)
[2018-04-14] MEDS: OXYBUTYNIN CHLORIDE 5 MG ER TABLET PO SCH (08:28)
[2018-04-14] MEDS: SIMVASTATIN 20 MG TABLET PO SCH (08:28)
[2018-04-14 16:16] VITALS: BP 124/78
[2018-04-14 17:09] LABS: GLUCOMETER DEV NAME(LOC) 3EI C; GLUCOSE,POINT OF CARE 168 MG/DL (70-110)
[2018-04-14] MEDS: INSULIN LISPRO 100 UNITS/ML SQ PRN ×2 (17:22→21:48)
[2018-04-14 21:49] LABS: GLUCOMETER DEV NAME(LOC) 3EI C; GLUCOSE,POINT OF CARE 147 MG/DL (70-110)
[2018-04-15 05:59] LABS: GLUCOMETER DEV NAME(LOC) 3EI C; GLUCOSE,POINT OF CARE 86 MG/DL (70-110)
[2018-04-15] MEDS: MetFORMIN HCL 500 MG TABLET PO SCH ×2 (06:53→17:23)
[2018-04-15] MEDS: LEVOTHYROXINE SODIUM 50 MCG TABLET PO SCH (06:53)
[2018-04-15] MEDS: FERROUS SULFATE 325 MG EC TABLET PO SCH ×2 (06:53→17:24)
[2018-04-15] MEDS: OXYBUTYNIN CHLORIDE 5 MG ER TABLET PO SCH (08:19)
[2018-04-15] MEDS: BENAZEPRIL HCL 5 MG TABLET PO SCH (08:19)
[2018-04-15] MEDS: SIMVASTATIN 20 MG TABLET PO SCH (08:19)
[2018-04-15] MEDS: DIVALPROEX SODIUM 500 MG DR TABLET PO SCH ×2 (08:19→17:24)
[2018-04-15] MEDS: LORATADINE 10 MG TABLET PO SCH (08:19)
[2018-04-15] MEDS: ASPIRIN 81 MG CHEWABLE TABLET PO SCH (08:19)
[2018-04-15] MEDS: MULTIVITAMINS WITH MINERALS, THERAPEUTIC TABLET PO SCH (08:19)
[2018-04-15] MEDS: TOPIRAMATE 100 MG TABLET PO SCH ×3 (08:19→17:24)
[2018-04-15] MEDS: QUEtiapine FUMARATE 200 MG TABLET PO SCH ×2 (08:19→21:25)
[2018-04-15] MEDS: ASCORBIC ACID 500 MG TABLET PO SCH (08:19)
[2018-04-15] MEDS: LevETIRAcetam 250 MG TABLET PO SCH ×2 (08:19→17:24)
[2018-04-15 09:00] VITALS: BP 133/97
[2018-04-15 11:54] LABS: GLUCOMETER DEV NAME(LOC) 3EI C; GLUCOSE,POINT OF CARE 100 MG/DL (70-110)
[2018-04-15 17:54] LABS: GLUCOMETER DEV NAME(LOC) 3EI C; GLUCOSE,POINT OF CARE 217 MG/DL (70-110)
[2018-04-15 18:00] VITALS: BP 106/62
[2018-04-15 20:34] LABS: GLUCOMETER DEV NAME(LOC) 3EI C; GLUCOSE,POINT OF CARE 165 MG/DL (70-110)
[2018-04-16 05:24] LABS: GLUCOMETER DEV NAME(LOC) 3EI C; GLUCOSE,POINT OF CARE 100 MG/DL (70-110)
[2018-04-16 06:42] VITALS: BP 111/84
[2018-04-16] MEDS: LEVOTHYROXINE SODIUM 50 MCG TABLET PO SCH (07:07)
[2018-04-16] MEDS: MetFORMIN HCL 500 MG TABLET PO SCH ×2 (07:07→18:30)
[2018-04-16] MEDS: FERROUS SULFATE 325 MG EC TABLET PO SCH ×2 (07:07→18:30)
[2018-04-16] MEDS: LORATADINE 10 MG TABLET PO SCH (08:08)
[2018-04-16] MEDS: TOPIRAMATE 100 MG TABLET PO SCH ×3 (08:08→18:00)
[2018-04-16] MEDS: ASPIRIN 81 MG CHEWABLE TABLET PO SCH (08:08)
[2018-04-16] MEDS: ASCORBIC ACID 500 MG TABLET PO SCH (08:09)
[2018-04-16] MEDS: DIVALPROEX SODIUM 500 MG DR TABLET PO SCH ×2 (08:09→18:00)
[2018-04-16] MEDS: OXYBUTYNIN CHLORIDE 5 MG ER TABLET PO SCH (08:09)
[2018-04-16] MEDS: SIMVASTATIN 20 MG TABLET PO SCH (08:09)
[2018-04-16] MEDS: LevETIRAcetam 250 MG TABLET PO SCH ×2 (08:09→18:00)
[2018-04-16] MEDS: QUEtiapine FUMARATE 200 MG TABLET PO SCH ×2 (08:09→20:34)
[2018-04-16] MEDS: BENAZEPRIL HCL 5 MG TABLET PO SCH (08:10)
[2018-04-16] MEDS: MULTIVITAMINS WITH MINERALS, THERAPEUTIC TABLET PO SCH (08:11)
[2018-04-16 09:50] VITALS: BP 126/72
[2018-04-16 11:34] LABS: GLUCOMETER DEV NAME(LOC) 3EI C; GLUCOSE,POINT OF CARE 165 MG/DL (70-110)
[2018-04-16] MEDS: INSULIN LISPRO 100 UNITS/ML SQ PRN ×2 (11:48→17:40)
[2018-04-16 16:13] VITALS: BP 119/76
[2018-04-16 16:30] LABS: GLUCOMETER DEV NAME(LOC) 3EI C; GLUCOSE,POINT OF CARE 147 MG/DL (70-110)
[2018-04-16 20:29] LABS: GLUCOMETER DEV NAME(LOC) 3EI C; GLUCOSE,POINT OF CARE 144 MG/DL (70-110)
[2018-04-17 05:34] LABS: GLUCOMETER DEV NAME(LOC) 3EI C; GLUCOSE,POINT OF CARE 106 MG/DL (70-110)
[2018-04-17] MEDS: LEVOTHYROXINE SODIUM 50 MCG TABLET PO SCH (06:41)
[2018-04-17] MEDS: INSULIN LISPRO 100 UNITS/ML SQ PRN (06:41)
[2018-04-17] MEDS: FERROUS SULFATE 325 MG EC TABLET PO SCH ×2 (06:52→17:56)
[2018-04-17] MEDS: MetFORMIN HCL 500 MG TABLET PO SCH ×2 (06:52→17:57)
[2018-04-17] MEDS: TOPIRAMATE 100 MG TABLET PO SCH ×3 (08:22→17:57)
[2018-04-17] MEDS: ASCORBIC ACID 500 MG TABLET PO SCH (08:22)
[2018-04-17] MEDS: ASPIRIN 81 MG CHEWABLE TABLET PO SCH (08:22)
[2018-04-17] MEDS: LevETIRAcetam 250 MG TABLET PO SCH ×2 (08:22→17:57)
[2018-04-17] MEDS: MULTIVITAMINS WITH MINERALS, THERAPEUTIC TABLET PO SCH (08:22)
[2018-04-17] MEDS: DIVALPROEX SODIUM 500 MG DR TABLET PO SCH ×2 (08:23→17:56)
[2018-04-17] MEDS: OXYBUTYNIN CHLORIDE 5 MG ER TABLET PO SCH (08:23)
[2018-04-17] MEDS: LORATADINE 10 MG TABLET PO SCH (08:24)
[2018-04-17] MEDS: BENAZEPRIL HCL 5 MG TABLET PO SCH (08:24)
[2018-04-17] MEDS: QUEtiapine FUMARATE 200 MG TABLET PO SCH ×2 (08:24→20:15)
[2018-04-17] MEDS: SIMVASTATIN 20 MG TABLET PO SCH (08:25)
[2018-04-17 09:00] VITALS: BP 142/69
[2018-04-17 16:17] VITALS: BP 132/78
[2018-04-17 17:10] LABS: GLUCOMETER DEV NAME(LOC) 3EI C; GLUCOSE,POINT OF CARE 122 MG/DL (70-110)
[2018-04-17 20:40] LABS: GLUCOMETER DEV NAME(LOC) 3EI C; GLUCOSE,POINT OF CARE 143 MG/DL (70-110)
[2018-04-18 05:55] LABS: GLUCOMETER DEV NAME(LOC) 3EI C; GLUCOSE,POINT OF CARE 107 MG/DL (70-110)
[2018-04-18] MEDS: LEVOTHYROXINE SODIUM 50 MCG TABLET PO SCH (07:10)
[2018-04-18] MEDS: MetFORMIN HCL 500 MG TABLET PO SCH ×2 (07:10→16:36)
[2018-04-18] MEDS: FERROUS SULFATE 325 MG EC TABLET PO SCH ×2 (07:10→16:35)
[2018-04-18] MEDS: OXYBUTYNIN CHLORIDE 5 MG ER TABLET PO SCH (08:26)
[2018-04-18] MEDS: MULTIVITAMINS WITH MINERALS, THERAPEUTIC TABLET PO SCH (08:26)
[2018-04-18] MEDS: DIVALPROEX SODIUM 500 MG DR TABLET PO SCH ×2 (08:26→16:34)
[2018-04-18] MEDS: QUEtiapine FUMARATE 200 MG TABLET PO SCH ×2 (08:26→20:52)
[2018-04-18] MEDS: LevETIRAcetam 250 MG TABLET PO SCH ×2 (08:26→16:35)
[2018-04-18] MEDS: TOPIRAMATE 100 MG TABLET PO SCH ×3 (08:27→16:35)
[2018-04-18] MEDS: ASCORBIC ACID 500 MG TABLET PO SCH (08:27)
[2018-04-18] MEDS: LORATADINE 10 MG TABLET PO SCH (08:27)
[2018-04-18] MEDS: ASPIRIN 81 MG CHEWABLE TABLET PO SCH (08:27)
[2018-04-18] MEDS: SIMVASTATIN 20 MG TABLET PO SCH (08:27)
[2018-04-18] MEDS: BENAZEPRIL HCL 5 MG TABLET PO SCH (09:00)
[2018-04-18 16:32] VITALS: BP 124/77
[2018-04-18] MEDS: INSULIN LISPRO 100 UNITS/ML SQ PRN ×2 (17:42→21:57)
[2018-04-18 21:10] LABS: GLUCOMETER DEV NAME(LOC) 3EI C; GLUCOSE,POINT OF CARE 152 MG/DL (70-110)
[2018-04-19 05:49] LABS: GLUCOMETER DEV NAME(LOC) 3EI C; GLUCOSE,POINT OF CARE 146 MG/DL (70-110)
[2018-04-19] MEDS: LEVOTHYROXINE SODIUM 50 MCG TABLET PO SCH (06:36)
[2018-04-19] MEDS: FERROUS SULFATE 325 MG EC TABLET PO SCH ×2 (06:36→16:19)
[2018-04-19] MEDS: MetFORMIN HCL 500 MG TABLET PO SCH ×2 (06:36→16:19)
[2018-04-19] MEDS: ASCORBIC ACID 500 MG TABLET PO SCH (08:51)
[2018-04-19] MEDS: OXYBUTYNIN CHLORIDE 5 MG ER TABLET PO SCH (08:52)
[2018-04-19] MEDS: BENAZEPRIL HCL 5 MG TABLET PO SCH (08:52)
[2018-04-19] MEDS: TOPIRAMATE 100 MG TABLET PO SCH ×3 (08:52→16:19)
[2018-04-19] MEDS: LevETIRAcetam 250 MG TABLET PO SCH ×2 (08:52→16:19)
[2018-04-19] MEDS: SIMVASTATIN 20 MG TABLET PO SCH (08:53)
[2018-04-19] MEDS: ASPIRIN 81 MG CHEWABLE TABLET PO SCH (08:55)
[2018-04-19] MEDS: DIVALPROEX SODIUM 500 MG DR TABLET PO SCH ×2 (08:55→16:19)
[2018-04-19] MEDS: MULTIVITAMINS WITH MINERALS, THERAPEUTIC TABLET PO SCH (08:55)
[2018-04-19] MEDS: QUEtiapine FUMARATE 200 MG TABLET PO SCH ×3 (08:55→22:23)
[2018-04-19] MEDS: LORATADINE 10 MG TABLET PO SCH (08:55)
[2018-04-19] MEDS: HALOPERIDOL 5 MG TABLET PO PRN (08:55)
[2018-04-19 11:49] LABS: GLUCOMETER DEV NAME(LOC) 3EI C; GLUCOSE,POINT OF CARE 207 MG/DL (70-110)
[2018-04-19] MEDS: INSULIN LISPRO 100 UNITS/ML SQ PRN ×2 (11:54→17:43)
[2018-04-19 15:13] VITALS: BP 124/85
[2018-04-19 16:32] VITALS: BP 101/66
[2018-04-19 16:39] LABS: GLUCOMETER DEV NAME(LOC) 3EI C; GLUCOSE,POINT OF CARE 185 MG/DL (70-110)
[2018-04-19 21:48] LABS: GLUCOMETER DEV NAME(LOC) 3EI C; GLUCOSE,POINT OF CARE 171 MG/DL (70-110)
[2018-04-20 05:54] LABS: GLUCOMETER DEV NAME(LOC) 3EI C; GLUCOSE,POINT OF CARE 119 MG/DL (70-110)
[2018-04-20] MEDS: FERROUS SULFATE 325 MG EC TABLET PO SCH ×2 (06:53→16:55)
[2018-04-20] MEDS: MetFORMIN HCL 500 MG TABLET PO SCH ×2 (06:53→16:55)
[2018-04-20] MEDS: LEVOTHYROXINE SODIUM 50 MCG TABLET PO SCH (06:53)
[2018-04-20] MEDS: DIVALPROEX SODIUM 500 MG DR TABLET PO SCH ×2 (08:33→16:55)
[2018-04-20] MEDS: SIMVASTATIN 20 MG TABLET PO SCH (08:33)
[2018-04-20] MEDS: MULTIVITAMINS WITH MINERALS, THERAPEUTIC TABLET PO SCH (08:35)
[2018-04-20] MEDS: TOPIRAMATE 100 MG TABLET PO SCH ×3 (08:35→16:55)
[2018-04-20] MEDS: QUEtiapine FUMARATE 200 MG TABLET PO SCH ×2 (08:35→20:23)
[2018-04-20] MEDS: LORATADINE 10 MG TABLET PO SCH (08:35)
[2018-04-20] MEDS: HALOPERIDOL 5 MG TABLET PO PRN (08:35)
[2018-04-20] MEDS: ASPIRIN 81 MG CHEWABLE TABLET PO SCH (08:35)
[2018-04-20] MEDS: LevETIRAcetam 250 MG TABLET PO SCH ×2 (08:35→16:55)
[2018-04-20] MEDS: ASCORBIC ACID 500 MG TABLET PO SCH (08:36)
[2018-04-20] MEDS: OXYBUTYNIN CHLORIDE 5 MG ER TABLET PO SCH (08:36)
[2018-04-20] MEDS: BENAZEPRIL HCL 5 MG TABLET PO SCH (08:36)
[2018-04-20 12:44] LABS: GLUCOMETER DEV NAME(LOC) 3EI C; GLUCOSE,POINT OF CARE 180 MG/DL (70-110)
[2018-04-20] MEDS: INSULIN LISPRO 100 UNITS/ML SQ PRN ×3 (13:40→21:18)
[2018-04-20 16:18] LABS: GLUCOMETER DEV NAME(LOC) 3EI C; GLUCOSE,POINT OF CARE 142 MG/DL (70-110)
[2018-04-20 18:03] VITALS: BP 122/74
[2018-04-20 21:14] LABS: GLUCOMETER DEV NAME(LOC) 3EI C; GLUCOSE,POINT OF CARE 162 MG/DL (70-110)
[2018-04-21 06:29] LABS: GLUCOMETER DEV NAME(LOC) 3EI C; GLUCOSE,POINT OF CARE 93 MG/DL (70-110)
[2018-04-21] MEDS: INSULIN LISPRO 100 UNITS/ML SQ PRN ×4 (06:48→21:38)
[2018-04-21] MEDS: FERROUS SULFATE 325 MG EC TABLET PO SCH ×2 (06:49→16:43)
[2018-04-21] MEDS: MetFORMIN HCL 500 MG TABLET PO SCH ×2 (06:49→16:42)
[2018-04-21] MEDS: LEVOTHYROXINE SODIUM 50 MCG TABLET PO SCH (06:49)
[2018-04-21 08:27] VITALS: BP 98/67
[2018-04-21] MEDS: MULTIVITAMINS WITH MINERALS, THERAPEUTIC TABLET PO SCH (09:11)
[2018-04-21] MEDS: TOPIRAMATE 100 MG TABLET PO SCH ×3 (09:11→16:43)
[2018-04-21] MEDS: OXYBUTYNIN CHLORIDE 5 MG ER TABLET PO SCH (09:11)
[2018-04-21] MEDS: BENAZEPRIL HCL 5 MG TABLET PO SCH (09:12)
[2018-04-21] MEDS: QUEtiapine FUMARATE 200 MG TABLET PO SCH ×2 (09:12→21:05)
[2018-04-21] MEDS: ASCORBIC ACID 500 MG TABLET PO SCH (09:12)
[2018-04-21] MEDS: ASPIRIN 81 MG CHEWABLE TABLET PO SCH (09:12)
[2018-04-21] MEDS: LORATADINE 10 MG TABLET PO SCH (09:12)
[2018-04-21] MEDS: LevETIRAcetam 250 MG TABLET PO SCH ×2 (09:12→16:42)
[2018-04-21] MEDS: DIVALPROEX SODIUM 500 MG DR TABLET PO SCH ×2 (09:12→16:42)
[2018-04-21] MEDS: SIMVASTATIN 20 MG TABLET PO SCH (09:12)
[2018-04-21 11:19] LABS: GLUCOMETER DEV NAME(LOC) 3EI C; GLUCOSE,POINT OF CARE 176 MG/DL (70-110)
[2018-04-21 16:12] VITALS: BP 119/76
[2018-04-21 17:00] LABS: GLUCOMETER DEV NAME(LOC) 3EI C; GLUCOSE,POINT OF CARE 217 MG/DL (70-110)
[2018-04-21 21:09] LABS: GLUCOMETER DEV NAME(LOC) 3EI C; GLUCOSE,POINT OF CARE 207 MG/DL (70-110)
[2018-04-22 05:45] LABS: GLUCOMETER DEV NAME(LOC) 3EI C; GLUCOSE,POINT OF CARE 144 MG/DL (70-110)
[2018-04-22] MEDS: MetFORMIN HCL 500 MG TABLET PO SCH ×2 (06:42→16:24)
[2018-04-22] MEDS: FERROUS SULFATE 325 MG EC TABLET PO SCH ×2 (06:42→16:24)
[2018-04-22] MEDS: INSULIN LISPRO 100 UNITS/ML SQ PRN ×2 (06:42→18:18)
[2018-04-22] MEDS: LEVOTHYROXINE SODIUM 50 MCG TABLET PO SCH (06:42)
[2018-04-22 08:00] VITALS: BP 123/73
[2018-04-22] MEDS: QUEtiapine FUMARATE 200 MG TABLET PO SCH ×2 (09:25→20:54)
[2018-04-22] MEDS: DIVALPROEX SODIUM 500 MG DR TABLET PO SCH ×2 (09:25→16:24)
[2018-04-22] MEDS: MULTIVITAMINS WITH MINERALS, THERAPEUTIC TABLET PO SCH (09:26)
[2018-04-22] MEDS: ASPIRIN 81 MG CHEWABLE TABLET PO SCH (09:26)
[2018-04-22] MEDS: BENAZEPRIL HCL 5 MG TABLET PO SCH (09:26)
[2018-04-22] MEDS: OMEPRAZOLE 20 MG CAPSULE PO PRN (09:26)
[2018-04-22] MEDS: OXYBUTYNIN CHLORIDE 5 MG ER TABLET PO SCH (09:26)
[2018-04-22] MEDS: SIMVASTATIN 20 MG TABLET PO SCH (09:26)
[2018-04-22] MEDS: LevETIRAcetam 250 MG TABLET PO SCH ×2 (09:26→16:24)
[2018-04-22] MEDS: LORATADINE 10 MG TABLET PO SCH (09:26)
[2018-04-22] MEDS: TOPIRAMATE 100 MG TABLET PO SCH ×3 (09:27→16:24)
[2018-04-22] MEDS: ASCORBIC ACID 500 MG TABLET PO SCH (09:27)
[2018-04-22 16:11] VITALS: BP 128/87
[2018-04-22 16:18] LABS: GLUCOMETER DEV NAME(LOC) 3EI C; GLUCOSE,POINT OF CARE 102 MG/DL (70-110)
[2018-04-22 16:28] LABS: GLUCOMETER DEV NAME(LOC) 3EI C; GLUCOSE,POINT OF CARE 233 MG/DL (70-110)
[2018-04-22] MEDS: HYPROMELLOSE 0.5% 15 ML OPHTHALMIC SOLUTION OD PRN (18:25)
[2018-04-23 06:48] LABS: GLUCOMETER DEV NAME(LOC) 3EI C; GLUCOSE,POINT OF CARE 160 MG/DL (70-110)
[2018-04-23] MEDS: LEVOTHYROXINE SODIUM 50 MCG TABLET PO SCH (07:03)
[2018-04-23] MEDS: MetFORMIN HCL 500 MG TABLET PO SCH ×2 (07:03→16:47)
[2018-04-23] MEDS: FERROUS SULFATE 325 MG EC TABLET PO SCH ×2 (07:03→16:47)
[2018-04-23 08:00] VITALS: BP 126/92
[2018-04-23] MEDS: ASCORBIC ACID 500 MG TABLET PO SCH (09:36)
[2018-04-23] MEDS: TOPIRAMATE 100 MG TABLET PO SCH ×3 (09:36→16:46)
[2018-04-23] MEDS: OXYBUTYNIN CHLORIDE 5 MG ER TABLET PO SCH (09:37)
[2018-04-23] MEDS: LevETIRAcetam 250 MG TABLET PO SCH ×2 (09:37→16:47)
[2018-04-23] MEDS: BENAZEPRIL HCL 5 MG TABLET PO SCH (09:37)
[2018-04-23] MEDS: ASPIRIN 81 MG CHEWABLE TABLET PO SCH (09:37)
[2018-04-23] MEDS: DIVALPROEX SODIUM 500 MG DR TABLET PO SCH ×2 (09:37→16:47)
[2018-04-23] MEDS: MULTIVITAMINS WITH MINERALS, THERAPEUTIC TABLET PO SCH (09:37)
[2018-04-23] MEDS: SIMVASTATIN 20 MG TABLET PO SCH (09:37)
[2018-04-23] MEDS: LORATADINE 10 MG TABLET PO SCH (09:37)
[2018-04-23] MEDS: QUEtiapine FUMARATE 200 MG TABLET PO SCH ×2 (09:37→21:17)
[2018-04-23 11:23] LABS: GLUCOMETER DEV NAME(LOC) 3EI C; GLUCOSE,POINT OF CARE 136 MG/DL (70-110)
[2018-04-23] MEDS: INSULIN LISPRO 100 UNITS/ML SQ PRN ×2 (12:04→17:55)
[2018-04-23 16:44] LABS: GLUCOMETER DEV NAME(LOC) 3EI C; GLUCOSE,POINT OF CARE 186 MG/DL (70-110)
[2018-04-23 19:25] VITALS: BP 123/84
[2018-04-23 21:23] LABS: GLUCOMETER DEV NAME(LOC) 3EI C; GLUCOSE,POINT OF CARE 113 MG/DL (70-110)
[2018-04-24 05:51] VITALS: BP 128/84
[2018-04-24] MEDS: MetFORMIN HCL 500 MG TABLET PO SCH ×2 (07:06→18:09)
[2018-04-24] MEDS: FERROUS SULFATE 325 MG EC TABLET PO SCH ×2 (07:06→18:06)
[2018-04-24] MEDS: LEVOTHYROXINE SODIUM 50 MCG TABLET PO SCH (07:06)
[2018-04-24 08:55] VITALS: BP 109/69
[2018-04-24] MEDS: QUEtiapine FUMARATE 200 MG TABLET PO SCH ×2 (11:00→21:19)
[2018-04-24] MEDS: DIVALPROEX SODIUM 500 MG DR TABLET PO SCH ×2 (11:00→18:06)
[2018-04-24] MEDS: LORATADINE 10 MG TABLET PO SCH (11:00)
[2018-04-24] MEDS: MULTIVITAMINS WITH MINERALS, THERAPEUTIC TABLET PO SCH (11:01)
[2018-04-24] MEDS: ASPIRIN 81 MG CHEWABLE TABLET PO SCH (11:01)
[2018-04-24] MEDS: OXYBUTYNIN CHLORIDE 5 MG ER TABLET PO SCH (11:02)
[2018-04-24] MEDS: TOPIRAMATE 100 MG TABLET PO SCH ×3 (11:02→18:06)
[2018-04-24] MEDS: ASCORBIC ACID 500 MG TABLET PO SCH (11:02)
[2018-04-24] MEDS: LevETIRAcetam 250 MG TABLET PO SCH ×2 (11:02→18:06)
[2018-04-24] MEDS: BENAZEPRIL HCL 5 MG TABLET PO SCH (11:02)
[2018-04-24] MEDS: SIMVASTATIN 20 MG TABLET PO SCH (11:04)
[2018-04-24 11:53] LABS: GLUCOMETER DEV NAME(LOC) 3EI C; GLUCOSE,POINT OF CARE 163 MG/DL (70-110)
[2018-04-24] MEDS: INSULIN LISPRO 100 UNITS/ML SQ PRN ×2 (13:09→21:29)
[2018-04-24 17:43] LABS: GLUCOMETER DEV NAME(LOC) 3EI C; GLUCOSE,POINT OF CARE 85 MG/DL (70-110)
[2018-04-24 21:42] LABS: GLUCOMETER DEV NAME(LOC) 3EI C; GLUCOSE,POINT OF CARE 150 MG/DL (70-110)
[2018-04-25 05:53] LABS: GLUCOMETER DEV NAME(LOC) 3EI C; GLUCOSE,POINT OF CARE 124 MG/DL (70-110)
[2018-04-25] MEDS: LEVOTHYROXINE SODIUM 50 MCG TABLET PO SCH (06:54)
[2018-04-25] MEDS: FERROUS SULFATE 325 MG EC TABLET PO SCH ×2 (06:55→17:40)
[2018-04-25] MEDS: MetFORMIN HCL 500 MG TABLET PO SCH ×2 (06:55→17:40)
[2018-04-25] MEDS: MULTIVITAMINS WITH MINERALS, THERAPEUTIC TABLET PO SCH (08:24)
[2018-04-25] MEDS: ASPIRIN 81 MG CHEWABLE TABLET PO SCH (08:24)
[2018-04-25] MEDS: SIMVASTATIN 20 MG TABLET PO SCH (08:24)
[2018-04-25] MEDS: QUEtiapine FUMARATE 200 MG TABLET PO SCH ×2 (08:24→22:26)
[2018-04-25] MEDS: DIVALPROEX SODIUM 500 MG DR TABLET PO SCH ×2 (08:25→17:40)
[2018-04-25] MEDS: ASCORBIC ACID 500 MG TABLET PO SCH (08:25)
[2018-04-25] MEDS: TOPIRAMATE 100 MG TABLET PO SCH ×3 (08:25→17:40)
[2018-04-25] MEDS: OXYBUTYNIN CHLORIDE 5 MG ER TABLET PO SCH (08:25)
[2018-04-25] MEDS: LevETIRAcetam 250 MG TABLET PO SCH ×2 (08:25→17:40)
[2018-04-25] MEDS: LORATADINE 10 MG TABLET PO SCH (08:25)
[2018-04-25] MEDS: BENAZEPRIL HCL 5 MG TABLET PO SCH (08:25)
[2018-04-25 17:43] LABS: GLUCOMETER DEV NAME(LOC) 3EI C; GLUCOSE,POINT OF CARE 152 MG/DL (70-110)
[2018-04-25] MEDS: INSULIN LISPRO 100 UNITS/ML SQ PRN ×2 (17:43→22:30)
[2018-04-25 17:54] VITALS: BP 117/68
[2018-04-25] MEDS: DOCUSATE SODIUM 100 MG CAPSULE PO PRN (18:37)
[2018-04-25 22:28] LABS: GLUCOMETER DEV NAME(LOC) 3EI C; GLUCOSE,POINT OF CARE 163 MG/DL (70-110)
[2018-04-26 06:13] LABS: GLUCOMETER DEV NAME(LOC) 3EI C; GLUCOSE,POINT OF CARE 185 MG/DL (70-110)
[2018-04-26] MEDS: INSULIN LISPRO 100 UNITS/ML SQ PRN ×2 (07:01→12:17)
[2018-04-26] MEDS: MetFORMIN HCL 500 MG TABLET PO SCH ×2 (07:21→17:14)
[2018-04-26] MEDS: LEVOTHYROXINE SODIUM 50 MCG TABLET PO SCH (07:21)
[2018-04-26] MEDS: FERROUS SULFATE 325 MG EC TABLET PO SCH ×2 (07:21→17:14)
[2018-04-26] MEDS: OXYBUTYNIN CHLORIDE 5 MG ER TABLET PO SCH (09:46)
[2018-04-26] MEDS: DIVALPROEX SODIUM 500 MG DR TABLET PO SCH ×2 (09:46→17:15)
[2018-04-26] MEDS: LORATADINE 10 MG TABLET PO SCH (09:46)
[2018-04-26] MEDS: ASPIRIN 81 MG CHEWABLE TABLET PO SCH (09:46)
[2018-04-26] MEDS: LevETIRAcetam 250 MG TABLET PO SCH ×2 (09:47→17:14)
[2018-04-26] MEDS: ASCORBIC ACID 500 MG TABLET PO SCH (09:47)
[2018-04-26] MEDS: TOPIRAMATE 100 MG TABLET PO SCH ×3 (09:47→17:14)
[2018-04-26] MEDS: SIMVASTATIN 20 MG TABLET PO SCH (09:47)
[2018-04-26] MEDS: QUEtiapine FUMARATE 200 MG TABLET PO SCH ×2 (09:47→21:20)
[2018-04-26] MEDS: MULTIVITAMINS WITH MINERALS, THERAPEUTIC TABLET PO SCH (09:47)
[2018-04-26] MEDS: BENAZEPRIL HCL 5 MG TABLET PO SCH (09:47)
[2018-04-26 10:09] VITALS: BP 126/99
[2018-04-26 11:23] LABS: GLUCOMETER DEV NAME(LOC) 3EI C; GLUCOSE,POINT OF CARE 130 MG/DL (70-110)
[2018-04-26 17:04] VITALS: BP 129/79
[2018-04-26 17:22] LABS: GLUCOMETER DEV NAME(LOC) 3EI C; GLUCOSE,POINT OF CARE 116 MG/DL (70-110)
[2018-04-26 22:28] LABS: GLUCOMETER DEV NAME(LOC) 3EI C; GLUCOSE,POINT OF CARE 115 MG/DL (70-110)
[2018-04-27 06:24] LABS: GLUCOMETER DEV NAME(LOC) 3EI C; GLUCOSE,POINT OF CARE 104 MG/DL (70-110)
[2018-04-27] MEDS: LEVOTHYROXINE SODIUM 50 MCG TABLET PO SCH (07:00)
[2018-04-27] MEDS: MetFORMIN HCL 500 MG TABLET PO SCH ×2 (07:12→17:12)
[2018-04-27] MEDS: FERROUS SULFATE 325 MG EC TABLET PO SCH ×2 (07:12→17:12)
[2018-04-27 08:00] VITALS: BP 122/78
[2018-04-27] MEDS: MULTIVITAMINS WITH MINERALS, THERAPEUTIC TABLET PO SCH (09:55)
[2018-04-27] MEDS: LevETIRAcetam 250 MG TABLET PO SCH ×2 (09:55→17:12)
[2018-04-27] MEDS: ASCORBIC ACID 500 MG TABLET PO SCH (09:55)
[2018-04-27] MEDS: ASPIRIN 81 MG CHEWABLE TABLET PO SCH (09:55)
[2018-04-27] MEDS: DIVALPROEX SODIUM 500 MG DR TABLET PO SCH ×2 (09:56→17:14)
[2018-04-27] MEDS: TOPIRAMATE 100 MG TABLET PO SCH ×3 (09:56→17:12)
[2018-04-27] MEDS: BENAZEPRIL HCL 5 MG TABLET PO SCH (09:56)
[2018-04-27] MEDS: SIMVASTATIN 20 MG TABLET PO SCH (09:56)
[2018-04-27] MEDS: OXYBUTYNIN CHLORIDE 5 MG ER TABLET PO SCH (09:57)
[2018-04-27] MEDS: QUEtiapine FUMARATE 200 MG TABLET PO SCH ×2 (09:57→21:18)
[2018-04-27] MEDS: LORATADINE 10 MG TABLET PO SCH (09:58)
[2018-04-27 11:48] LABS: GLUCOMETER DEV NAME(LOC) 3EI C; GLUCOSE,POINT OF CARE 158 MG/DL (70-110)
[2018-04-27] MEDS: INSULIN LISPRO 100 UNITS/ML SQ PRN ×2 (12:34→21:25)
[2018-04-27 16:19] VITALS: BP 119/72
[2018-04-27 21:38] LABS: GLUCOMETER DEV NAME(LOC) 3EI C; GLUCOSE,POINT OF CARE 161 MG/DL (70-110)
[2018-04-28 05:39] LABS: GLUCOMETER DEV NAME(LOC) 3EI C; GLUCOSE,POINT OF CARE 139 MG/DL (70-110)
[2018-04-28] MEDS: LEVOTHYROXINE SODIUM 50 MCG TABLET PO SCH (07:09)
[2018-04-28] MEDS: FERROUS SULFATE 325 MG EC TABLET PO SCH ×2 (07:09→16:29)
[2018-04-28] MEDS: MetFORMIN HCL 500 MG TABLET PO SCH ×2 (07:09→16:29)
[2018-04-28 09:00] VITALS: BP 117/69
[2018-04-28 11:19] LABS: GLUCOMETER DEV NAME(LOC) 3EI C; GLUCOSE,POINT OF CARE 125 MG/DL (70-110)
[2018-04-28] MEDS: INSULIN LISPRO 100 UNITS/ML SQ PRN ×2 (11:28→18:15)
[2018-04-28] MEDS: ASPIRIN 81 MG CHEWABLE TABLET PO SCH (12:01)
[2018-04-28] MEDS: MULTIVITAMINS WITH MINERALS, THERAPEUTIC TABLET PO SCH (12:01)
[2018-04-28] MEDS: LevETIRAcetam 250 MG TABLET PO SCH ×2 (12:01→16:29)
[2018-04-28] MEDS: TOPIRAMATE 100 MG TABLET PO SCH ×3 (12:02→16:29)
[2018-04-28] MEDS: QUEtiapine FUMARATE 200 MG TABLET PO SCH ×2 (12:02→21:49)
[2018-04-28] MEDS: BENAZEPRIL HCL 5 MG TABLET PO SCH (12:04)
[2018-04-28] MEDS: OXYBUTYNIN CHLORIDE 5 MG ER TABLET PO SCH (12:04)
[2018-04-28] MEDS: ASCORBIC ACID 500 MG TABLET PO SCH (12:04)
[2018-04-28] MEDS: LORATADINE 10 MG TABLET PO SCH (12:04)
[2018-04-28] MEDS: DIVALPROEX SODIUM 500 MG DR TABLET PO SCH ×2 (12:04→16:29)
[2018-04-28] MEDS: SIMVASTATIN 20 MG TABLET PO SCH (12:04)
[2018-04-28] MEDS: DOCUSATE SODIUM 100 MG CAPSULE PO PRN (13:16)
[2018-04-28 16:02] VITALS: BP 115/77
[2018-04-28 16:37] LABS: GLUCOMETER DEV NAME(LOC) 3EI C; GLUCOSE,POINT OF CARE 217 MG/DL (70-110)
[2018-04-28 22:28] LABS: GLUCOMETER DEV NAME(LOC) 3EI C; GLUCOSE,POINT OF CARE 126 MG/DL (70-110)
[2018-04-29 05:58] LABS: GLUCOMETER DEV NAME(LOC) 3EI C; GLUCOSE,POINT OF CARE 122 MG/DL (70-110)
[2018-04-29 06:44] VITALS: BP 127/75
[2018-04-29] MEDS: LEVOTHYROXINE SODIUM 50 MCG TABLET PO SCH (06:53)
[2018-04-29] MEDS: FERROUS SULFATE 325 MG EC TABLET PO SCH ×2 (06:53→16:58)
[2018-04-29] MEDS: MetFORMIN HCL 500 MG TABLET PO SCH ×2 (06:54→16:59)
[2018-04-29] MEDS: INSULIN LISPRO 100 UNITS/ML SQ PRN ×3 (07:15→16:46)
[2018-04-29] MEDS: QUEtiapine FUMARATE 200 MG TABLET PO SCH ×2 (08:46→21:46)
[2018-04-29] MEDS: DIVALPROEX SODIUM 500 MG DR TABLET PO SCH ×2 (08:47→16:58)
[2018-04-29] MEDS: SIMVASTATIN 20 MG TABLET PO SCH (08:47)
[2018-04-29] MEDS: ASCORBIC ACID 500 MG TABLET PO SCH (08:47)
[2018-04-29] MEDS: ASPIRIN 81 MG CHEWABLE TABLET PO SCH (08:47)
[2018-04-29] MEDS: TOPIRAMATE 100 MG TABLET PO SCH ×3 (08:47→16:59)
[2018-04-29] MEDS: MULTIVITAMINS WITH MINERALS, THERAPEUTIC TABLET PO SCH (08:47)
[2018-04-29] MEDS: LevETIRAcetam 250 MG TABLET PO SCH ×2 (08:48→16:58)
[2018-04-29] MEDS: BENAZEPRIL HCL 5 MG TABLET PO SCH (08:48)
[2018-04-29] MEDS: LORATADINE 10 MG TABLET PO SCH (08:48)
[2018-04-29] MEDS: OXYBUTYNIN CHLORIDE 5 MG ER TABLET PO SCH (08:48)
[2018-04-29] MEDS: HYPROMELLOSE 0.5% 15 ML OPHTHALMIC SOLUTION OD PRN (08:51)
[2018-04-29 10:43] LABS: GLUCOMETER DEV NAME(LOC) 3EI C; GLUCOSE,POINT OF CARE 129 MG/DL (70-110)
[2018-04-29 13:36] VITALS: BP 112/75
[2018-04-29 17:00] VITALS: BP 129/69
[2018-04-29 17:04] LABS: GLUCOMETER DEV NAME(LOC) 3EI C; GLUCOSE,POINT OF CARE 191 MG/DL (70-110)
[2018-04-29 21:14] LABS: GLUCOMETER DEV NAME(LOC) 3EI C; GLUCOSE,POINT OF CARE 142 MG/DL (70-110)
[2018-04-30 06:28] LABS: GLUCOMETER DEV NAME(LOC) 3EI C; GLUCOSE,POINT OF CARE 102 MG/DL (70-110)
[2018-04-30 07:12] VITALS: BP 100/62
[2018-04-30] MEDS: FERROUS SULFATE 325 MG EC TABLET PO SCH ×2 (07:12→16:50)
[2018-04-30] MEDS: MetFORMIN HCL 500 MG TABLET PO SCH ×2 (07:12→16:50)
[2018-04-30] MEDS: LEVOTHYROXINE SODIUM 50 MCG TABLET PO SCH (07:12)
[2018-04-30] MEDS: INSULIN LISPRO 100 UNITS/ML SQ PRN (07:12)
[2018-04-30 08:02] VITALS: BP 119/52
[2018-04-30] MEDS: OXYBUTYNIN CHLORIDE 5 MG ER TABLET PO SCH (09:55)
[2018-04-30] MEDS: DIVALPROEX SODIUM 500 MG DR TABLET PO SCH ×2 (09:55→16:50)
[2018-04-30] MEDS: ASCORBIC ACID 500 MG TABLET PO SCH (09:56)
[2018-04-30] MEDS: ASPIRIN 81 MG CHEWABLE TABLET PO SCH (09:56)
[2018-04-30] MEDS: BENAZEPRIL HCL 5 MG TABLET PO SCH (09:56)
[2018-04-30] MEDS: LevETIRAcetam 250 MG TABLET PO SCH ×2 (09:56→16:50)
[2018-04-30] MEDS: TOPIRAMATE 100 MG TABLET PO SCH ×3 (09:56→16:50)
[2018-04-30] MEDS: QUEtiapine FUMARATE 200 MG TABLET PO SCH ×2 (09:56→20:56)
[2018-04-30] MEDS: MULTIVITAMINS WITH MINERALS, THERAPEUTIC TABLET PO SCH (09:56)
[2018-04-30] MEDS: LORATADINE 10 MG TABLET PO SCH (09:58)
[2018-04-30] MEDS: SIMVASTATIN 20 MG TABLET PO SCH (09:59)
[2018-04-30 11:39] LABS: GLUCOMETER DEV NAME(LOC) 3EI C; GLUCOSE,POINT OF CARE 130 MG/DL (70-110)
[2018-04-30 16:33] LABS: GLUCOMETER DEV NAME(LOC) 3EI C; GLUCOSE,POINT OF CARE 115 MG/DL (70-110)
[2018-04-30 16:38] VITALS: BP 132/78
[2018-04-30 21:48] LABS: GLUCOMETER DEV NAME(LOC) 3EI C; GLUCOSE,POINT OF CARE 106 MG/DL (70-110)
[2018-05-01 05:52] VITALS: BP 126/83
[2018-05-01] MEDS: LEVOTHYROXINE SODIUM 50 MCG TABLET PO SCH (06:42)
[2018-05-01] MEDS: FERROUS SULFATE 325 MG EC TABLET PO SCH ×2 (06:42→17:12)
[2018-05-01] MEDS: MetFORMIN HCL 500 MG TABLET PO SCH ×2 (06:42→17:12)
[2018-05-01] MEDS: MULTIVITAMINS WITH MINERALS, THERAPEUTIC TABLET PO SCH (07:59)
[2018-05-01] MEDS: ASPIRIN 81 MG CHEWABLE TABLET PO SCH (08:00)
[2018-05-01] MEDS: ASCORBIC ACID 500 MG TABLET PO SCH (08:00)
[2018-05-01] MEDS: DIVALPROEX SODIUM 500 MG DR TABLET PO SCH ×2 (08:00→17:12)
[2018-05-01] MEDS: QUEtiapine FUMARATE 200 MG TABLET PO SCH ×2 (08:01→20:35)
[2018-05-01] MEDS: BENAZEPRIL HCL 5 MG TABLET PO SCH (08:01)
[2018-05-01] MEDS: SIMVASTATIN 20 MG TABLET PO SCH (08:01)
[2018-05-01] MEDS: LORATADINE 10 MG TABLET PO SCH (08:01)
[2018-05-01] MEDS: OXYBUTYNIN CHLORIDE 5 MG ER TABLET PO SCH (08:02)
[2018-05-01] MEDS: LevETIRAcetam 250 MG TABLET PO SCH ×2 (08:02→17:12)
[2018-05-01] MEDS: TOPIRAMATE 100 MG TABLET PO SCH ×3 (08:02→17:12)
[2018-05-01 09:29] VITALS: BP 106/65
[2018-05-01 11:38] LABS: GLUCOMETER DEV NAME(LOC) 3EI C; GLUCOSE,POINT OF CARE 103 MG/DL (70-110)
[2018-05-01 16:28] LABS: GLUCOMETER DEV NAME(LOC) 3EI C; GLUCOSE,POINT OF CARE 94 MG/DL (70-110)
[2018-05-01 16:33] VITALS: BP 119/79
[2018-05-01 20:43] LABS: GLUCOMETER DEV NAME(LOC) 3EI C; GLUCOSE,POINT OF CARE 126 MG/DL (70-110)
[2018-05-02 05:28] LABS: GLUCOMETER DEV NAME(LOC) 3EI C; GLUCOSE,POINT OF CARE 91 MG/DL (70-110)
[2018-05-02] MEDS: LEVOTHYROXINE SODIUM 50 MCG TABLET PO SCH (06:54)
[2018-05-02] MEDS: INSULIN LISPRO 100 UNITS/ML SQ PRN ×3 (06:55→21:13)
[2018-05-02] MEDS: MetFORMIN HCL 500 MG TABLET PO SCH ×2 (06:55→16:45)
[2018-05-02] MEDS: FERROUS SULFATE 325 MG EC TABLET PO SCH ×2 (06:55→16:45)
[2018-05-02] MEDS: DIVALPROEX SODIUM 500 MG DR TABLET PO SCH ×2 (08:21→16:45)
[2018-05-02] MEDS: SIMVASTATIN 20 MG TABLET PO SCH (08:21)
[2018-05-02] MEDS: LORATADINE 10 MG TABLET PO SCH (08:21)
[2018-05-02] MEDS: MULTIVITAMINS WITH MINERALS, THERAPEUTIC TABLET PO SCH (08:21)
[2018-05-02] MEDS: ASPIRIN 81 MG CHEWABLE TABLET PO SCH (08:21)
[2018-05-02] MEDS: QUEtiapine FUMARATE 200 MG TABLET PO SCH ×2 (08:22→21:25)
[2018-05-02] MEDS: LevETIRAcetam 250 MG TABLET PO SCH ×2 (08:23→16:45)
[2018-05-02] MEDS: TOPIRAMATE 100 MG TABLET PO SCH ×3 (08:23→16:45)
[2018-05-02] MEDS: BENAZEPRIL HCL 5 MG TABLET PO SCH (08:23)
[2018-05-02] MEDS: OXYBUTYNIN CHLORIDE 5 MG ER TABLET PO SCH (08:23)
[2018-05-02] MEDS: ASCORBIC ACID 500 MG TABLET PO SCH (08:24)
[2018-05-02 11:23] LABS: GLUCOMETER DEV NAME(LOC) 3EI C; GLUCOSE,POINT OF CARE 109 MG/DL (70-110)
[2018-05-02 14:25] VITALS: BP 109/83
[2018-05-02 16:42] VITALS: BP 102/60
[2018-05-02 17:08] LABS: GLUCOMETER DEV NAME(LOC) 3EI C; GLUCOSE,POINT OF CARE 158 MG/DL (70-110)
[2018-05-02 21:13] LABS: GLUCOMETER DEV NAME(LOC) 3EI C; GLUCOSE,POINT OF CARE 182 MG/DL (70-110)
[2018-05-03 05:33] LABS: GLUCOMETER DEV NAME(LOC) 3EI C; GLUCOSE,POINT OF CARE 124 MG/DL (70-110)
[2018-05-03] MEDS: MetFORMIN HCL 500 MG TABLET PO SCH ×2 (06:59→17:05)
[2018-05-03] MEDS: FERROUS SULFATE 325 MG EC TABLET PO SCH ×2 (06:59→17:05)
[2018-05-03] MEDS: LEVOTHYROXINE SODIUM 50 MCG TABLET PO SCH (06:59)
[2018-05-03 07:00] VITALS: BP 109/76
[2018-05-03] MEDS: SIMVASTATIN 20 MG TABLET PO SCH (07:58)
[2018-05-03] MEDS: DIVALPROEX SODIUM 500 MG DR TABLET PO SCH ×2 (07:58→17:05)
[2018-05-03] MEDS: QUEtiapine FUMARATE 200 MG TABLET PO SCH ×2 (07:58→20:34)
[2018-05-03] MEDS: TOPIRAMATE 100 MG TABLET PO SCH ×3 (07:58→17:05)
[2018-05-03] MEDS: BENAZEPRIL HCL 5 MG TABLET PO SCH (07:59)
[2018-05-03] MEDS: OXYBUTYNIN CHLORIDE 5 MG ER TABLET PO SCH (07:59)
[2018-05-03] MEDS: ASCORBIC ACID 500 MG TABLET PO SCH (07:59)
[2018-05-03] MEDS: LevETIRAcetam 250 MG TABLET PO SCH ×2 (07:59→17:05)
[2018-05-03] MEDS: LORATADINE 10 MG TABLET PO SCH (09:14)
[2018-05-03] MEDS: MULTIVITAMINS WITH MINERALS, THERAPEUTIC TABLET PO SCH (09:14)
[2018-05-03] MEDS: ASPIRIN 81 MG CHEWABLE TABLET PO SCH (09:14)
[2018-05-03 11:23] LABS: GLUCOMETER DEV NAME(LOC) 3EI C; GLUCOSE,POINT OF CARE 96 MG/DL (70-110)
[2018-05-03 16:12] VITALS: BP 106/78
[2018-05-03 16:48] LABS: GLUCOMETER DEV NAME(LOC) 3EI C; GLUCOSE,POINT OF CARE 104 MG/DL (70-110)
[2018-05-03 21:22] LABS: GLUCOMETER DEV NAME(LOC) 3EI C; GLUCOSE,POINT OF CARE 156 MG/DL (70-110)
[2018-05-03] MEDS: INSULIN LISPRO 100 UNITS/ML SQ PRN (21:50)
[2018-05-04 06:48] LABS: GLUCOMETER DEV NAME(LOC) 3EI C; GLUCOSE,POINT OF CARE 81 MG/DL (70-110)
[2018-05-04] MEDS: LEVOTHYROXINE SODIUM 50 MCG TABLET PO SCH (06:54)
[2018-05-04] MEDS: FERROUS SULFATE 325 MG EC TABLET PO SCH ×2 (06:55→17:25)
[2018-05-04] MEDS: MetFORMIN HCL 500 MG TABLET PO SCH ×2 (06:55→17:25)
[2018-05-04] MEDS: LevETIRAcetam 250 MG TABLET PO SCH ×2 (09:50→16:16)
[2018-05-04] MEDS: BENAZEPRIL HCL 5 MG TABLET PO SCH (09:50)
[2018-05-04] MEDS: OXYBUTYNIN CHLORIDE 5 MG ER TABLET PO SCH (09:50)
[2018-05-04] MEDS: ASCORBIC ACID 500 MG TABLET PO SCH (09:50)
[2018-05-04] MEDS: LORATADINE 10 MG TABLET PO SCH (09:50)
[2018-05-04] MEDS: SIMVASTATIN 20 MG TABLET PO SCH (09:50)
[2018-05-04] MEDS: QUEtiapine FUMARATE 200 MG TABLET PO SCH ×2 (09:50→21:05)
[2018-05-04] MEDS: TOPIRAMATE 100 MG TABLET PO SCH ×3 (09:50→16:17)
[2018-05-04] MEDS: DIVALPROEX SODIUM 500 MG DR TABLET PO SCH ×2 (09:50→16:16)
[2018-05-04] MEDS: ASPIRIN 81 MG CHEWABLE TABLET PO SCH (09:50)
[2018-05-04] MEDS: HALOPERIDOL 5 MG TABLET PO PRN (09:51)
[2018-05-04] MEDS: MULTIVITAMINS WITH MINERALS, THERAPEUTIC TABLET PO SCH (09:51)
[2018-05-04 11:23] LABS: GLUCOMETER DEV NAME(LOC) 3EI C; GLUCOSE,POINT OF CARE 126 MG/DL (70-110)
[2018-05-04 15:58] LABS: GLUCOMETER DEV NAME(LOC) 3EI C; GLUCOSE,POINT OF CARE 121 MG/DL (70-110)
[2018-05-04 16:33] VITALS: BP 119/77
[2018-05-04] MEDS: INSULIN LISPRO 100 UNITS/ML SQ PRN (21:03)
[2018-05-04 21:07] LABS: GLUCOMETER DEV NAME(LOC) 3EI C; GLUCOSE,POINT OF CARE 157 MG/DL (70-110)
[2018-05-05] MEDS: FERROUS SULFATE 325 MG EC TABLET PO SCH ×2 (07:03→17:28)
[2018-05-05] MEDS: LEVOTHYROXINE SODIUM 50 MCG TABLET PO SCH (07:04)
[2018-05-05] MEDS: DIVALPROEX SODIUM 500 MG DR TABLET PO SCH ×2 (08:09→17:28)
[2018-05-05] MEDS: MULTIVITAMINS WITH MINERALS, THERAPEUTIC TABLET PO SCH (08:09)
[2018-05-05] MEDS: TOPIRAMATE 100 MG TABLET PO SCH ×3 (08:09→17:28)
[2018-05-05] MEDS: QUEtiapine FUMARATE 200 MG TABLET PO SCH ×2 (08:09→20:13)
[2018-05-05] MEDS: ASCORBIC ACID 500 MG TABLET PO SCH (08:09)
[2018-05-05] MEDS: LevETIRAcetam 250 MG TABLET PO SCH ×2 (08:09→17:28)
[2018-05-05] MEDS: BENAZEPRIL HCL 5 MG TABLET PO SCH (08:09)
[2018-05-05] MEDS: OXYBUTYNIN CHLORIDE 5 MG ER TABLET PO SCH (08:09)
[2018-05-05] MEDS: SIMVASTATIN 20 MG TABLET PO SCH (08:10)
[2018-05-05] MEDS: ASPIRIN 81 MG CHEWABLE TABLET PO SCH (08:10)
[2018-05-05] MEDS: LORATADINE 10 MG TABLET PO SCH (08:10)
[2018-05-05 08:22] VITALS: BP 110/71
[2018-05-05 11:49] LABS: GLUCOMETER DEV NAME(LOC) 3EI C; GLUCOSE,POINT OF CARE 115 MG/DL (70-110)
[2018-05-05 16:05] VITALS: BP 118/78
[2018-05-05] MEDS: MetFORMIN HCL 500 MG TABLET PO SCH (17:29)
[2018-05-05] MEDS: INSULIN LISPRO 100 UNITS/ML SQ PRN (17:36)
[2018-05-05 17:44] LABS: GLUCOMETER DEV NAME(LOC) 3EI C; GLUCOSE,POINT OF CARE 187 MG/DL (70-110)
[2018-05-05 21:08] LABS: GLUCOMETER DEV NAME(LOC) 3EI C; GLUCOSE,POINT OF CARE 120 MG/DL (70-110)
[2018-05-06] MEDS: MetFORMIN HCL 500 MG TABLET PO SCH ×2 (06:51→16:36)
[2018-05-06] MEDS: FERROUS SULFATE 325 MG EC TABLET PO SCH ×2 (06:51→16:36)
[2018-05-06] MEDS: LEVOTHYROXINE SODIUM 50 MCG TABLET PO SCH (06:51)
[2018-05-06] MEDS: DIVALPROEX SODIUM 500 MG DR TABLET PO SCH ×2 (08:33→16:36)
[2018-05-06] MEDS: SIMVASTATIN 20 MG TABLET PO SCH (08:33)
[2018-05-06] MEDS: OXYBUTYNIN CHLORIDE 5 MG ER TABLET PO SCH (08:33)
[2018-05-06] MEDS: LevETIRAcetam 250 MG TABLET PO SCH ×2 (08:33→16:36)
[2018-05-06] MEDS: ASCORBIC ACID 500 MG TABLET PO SCH (08:33)
[2018-05-06] MEDS: QUEtiapine FUMARATE 200 MG TABLET PO SCH ×2 (08:33→20:46)
[2018-05-06] MEDS: LORATADINE 10 MG TABLET PO SCH (08:33)
[2018-05-06] MEDS: ASPIRIN 81 MG CHEWABLE TABLET PO SCH (08:33)
[2018-05-06] MEDS: MULTIVITAMINS WITH MINERALS, THERAPEUTIC TABLET PO SCH (08:33)
[2018-05-06] MEDS: TOPIRAMATE 100 MG TABLET PO SCH ×3 (08:34→16:36)
[2018-05-06] MEDS: BENAZEPRIL HCL 5 MG TABLET PO SCH (08:34)
[2018-05-06 11:34] LABS: GLUCOMETER DEV NAME(LOC) 3EI C; GLUCOSE,POINT OF CARE 118 MG/DL (70-110)
[2018-05-06 16:00] VITALS: BP 110/70
[2018-05-06] MEDS: INSULIN LISPRO 100 UNITS/ML SQ PRN ×2 (17:14→21:10)
[2018-05-06 17:58] LABS: GLUCOMETER DEV NAME(LOC) 3EI C; GLUCOSE,POINT OF CARE 149 MG/DL (70-110)
[2018-05-06 21:18] LABS: GLUCOMETER DEV NAME(LOC) 3EI C; GLUCOSE,POINT OF CARE 153 MG/DL (70-110)
[2018-05-07] MEDS: MetFORMIN HCL 500 MG TABLET PO SCH ×2 (06:36→18:16)
[2018-05-07] MEDS: FERROUS SULFATE 325 MG EC TABLET PO SCH ×2 (06:36→18:15)
[2018-05-07] MEDS: LEVOTHYROXINE SODIUM 50 MCG TABLET PO SCH (06:36)
[2018-05-07] MEDS: LORATADINE 10 MG TABLET PO SCH (07:54)
[2018-05-07] MEDS: ASPIRIN 81 MG CHEWABLE TABLET PO SCH (07:54)
[2018-05-07] MEDS: QUEtiapine FUMARATE 200 MG TABLET PO SCH ×2 (07:54→20:57)
[2018-05-07] MEDS: MULTIVITAMINS WITH MINERALS, THERAPEUTIC TABLET PO SCH (07:54)
[2018-05-07] MEDS: SIMVASTATIN 20 MG TABLET PO SCH (07:55)
[2018-05-07] MEDS: DIVALPROEX SODIUM 500 MG DR TABLET PO SCH ×2 (07:55→18:00)
[2018-05-07] MEDS: OXYBUTYNIN CHLORIDE 5 MG ER TABLET PO SCH (07:55)
[2018-05-07] MEDS: BENAZEPRIL HCL 5 MG TABLET PO SCH (07:55)
[2018-05-07] MEDS: ASCORBIC ACID 500 MG TABLET PO SCH (07:56)
[2018-05-07] MEDS: LevETIRAcetam 250 MG TABLET PO SCH ×2 (07:56→18:00)
[2018-05-07] MEDS: TOPIRAMATE 100 MG TABLET PO SCH ×3 (07:56→18:00)
[2018-05-07 15:09] VITALS: BP 112/74
[2018-05-07 16:12] VITALS: BP 121/67
[2018-05-07 16:38] LABS: GLUCOMETER DEV NAME(LOC) 3EI C; GLUCOSE,POINT OF CARE 193 MG/DL (70-110)
[2018-05-07] MEDS: INSULIN LISPRO 100 UNITS/ML SQ PRN (17:30)
[2018-05-07 21:33] LABS: GLUCOMETER DEV NAME(LOC) 3EI C; GLUCOSE,POINT OF CARE 112 MG/DL (70-110)
[2018-05-08 06:19] LABS: GLUCOMETER DEV NAME(LOC) 3EI C; GLUCOSE,POINT OF CARE 81 MG/DL (70-110)
[2018-05-08] MEDS: MetFORMIN HCL 500 MG TABLET PO SCH ×2 (07:05→17:48)
[2018-05-08] MEDS: FERROUS SULFATE 325 MG EC TABLET PO SCH ×2 (07:05→17:49)
[2018-05-08] MEDS: LEVOTHYROXINE SODIUM 50 MCG TABLET PO SCH (07:05)
[2018-05-08 08:09] VITALS: BP 139/80
[2018-05-08 08:11] VITALS: BP 133/74
[2018-05-08] MEDS: DIVALPROEX SODIUM 500 MG DR TABLET PO SCH ×2 (09:41→17:48)
[2018-05-08] MEDS: SIMVASTATIN 20 MG TABLET PO SCH (09:41)
[2018-05-08] MEDS: OXYBUTYNIN CHLORIDE 5 MG ER TABLET PO SCH (09:42)
[2018-05-08] MEDS: MULTIVITAMINS WITH MINERALS, THERAPEUTIC TABLET PO SCH (09:42)
[2018-05-08] MEDS: QUEtiapine FUMARATE 200 MG TABLET PO SCH ×2 (09:42→21:24)
[2018-05-08] MEDS: LORATADINE 10 MG TABLET PO SCH (09:42)
[2018-05-08] MEDS: LevETIRAcetam 250 MG TABLET PO SCH ×2 (09:42→17:47)
[2018-05-08] MEDS: BENAZEPRIL HCL 5 MG TABLET PO SCH (09:42)
[2018-05-08] MEDS: ASPIRIN 81 MG CHEWABLE TABLET PO SCH (09:42)
[2018-05-08] MEDS: ASCORBIC ACID 500 MG TABLET PO SCH (09:43)
[2018-05-08] MEDS: TOPIRAMATE 100 MG TABLET PO SCH ×3 (09:43→17:47)
[2018-05-08 11:24] LABS: GLUCOMETER DEV NAME(LOC) 3EI C; GLUCOSE,POINT OF CARE 167 MG/DL (70-110)
[2018-05-08] MEDS: INSULIN LISPRO 100 UNITS/ML SQ PRN ×2 (11:35→21:56)
[2018-05-08 16:07] VITALS: BP 122/72
[2018-05-08 16:53] LABS: GLUCOMETER DEV NAME(LOC) 3EI C; GLUCOSE,POINT OF CARE 139 MG/DL (70-110)
[2018-05-08 21:58] LABS: GLUCOMETER DEV NAME(LOC) 3EI C; GLUCOSE,POINT OF CARE 241 MG/DL (70-110)
[2018-05-09 06:28] LABS: GLUCOMETER DEV NAME(LOC) 3EI C; GLUCOSE,POINT OF CARE 166 MG/DL (70-110)
[2018-05-09] MEDS: INSULIN LISPRO 100 UNITS/ML SQ PRN ×2 (06:49→21:37)
[2018-05-09] MEDS: MetFORMIN HCL 500 MG TABLET PO SCH ×2 (06:50→18:00)
[2018-05-09] MEDS: LEVOTHYROXINE SODIUM 50 MCG TABLET PO SCH (06:50)
[2018-05-09] MEDS: FERROUS SULFATE 325 MG EC TABLET PO SCH ×2 (06:50→18:00)
[2018-05-09] MEDS: QUEtiapine FUMARATE 200 MG TABLET PO SCH ×2 (08:25→21:03)
[2018-05-09] MEDS: MULTIVITAMINS WITH MINERALS, THERAPEUTIC TABLET PO SCH (08:26)
[2018-05-09] MEDS: SIMVASTATIN 20 MG TABLET PO SCH (08:26)
[2018-05-09] MEDS: ASPIRIN 81 MG CHEWABLE TABLET PO SCH (08:26)
[2018-05-09] MEDS: DIVALPROEX SODIUM 500 MG DR TABLET PO SCH ×2 (08:26→18:00)
[2018-05-09] MEDS: LORATADINE 10 MG TABLET PO SCH (08:26)
[2018-05-09] MEDS: BENAZEPRIL HCL 5 MG TABLET PO SCH (08:27)
[2018-05-09] MEDS: OXYBUTYNIN CHLORIDE 5 MG ER TABLET PO SCH (08:27)
[2018-05-09] MEDS: LevETIRAcetam 250 MG TABLET PO SCH ×2 (08:27→18:00)
[2018-05-09] MEDS: TOPIRAMATE 100 MG TABLET PO SCH ×3 (08:27→18:00)
[2018-05-09] MEDS: ASCORBIC ACID 500 MG TABLET PO SCH (08:28)
[2018-05-09 09:35] VITALS: BP 107/73
[2018-05-09 11:18] LABS: GLUCOMETER DEV NAME(LOC) 3EI C; GLUCOSE,POINT OF CARE 129 MG/DL (70-110)
[2018-05-09 17:34] LABS: GLUCOMETER DEV NAME(LOC) 3EI C; GLUCOSE,POINT OF CARE 135 MG/DL (70-110)
[2018-05-09 20:02] VITALS: BP 113/65
[2018-05-09 21:43] LABS: GLUCOMETER DEV NAME(LOC) 3EI C; GLUCOSE,POINT OF CARE 176 MG/DL (70-110)
[2018-05-10 05:29] LABS: GLUCOMETER DEV NAME(LOC) 3EI C; GLUCOSE,POINT OF CARE 110 MG/DL (70-110)
[2018-05-10] MEDS: LEVOTHYROXINE SODIUM 50 MCG TABLET PO SCH (06:49)
[2018-05-10] MEDS: FERROUS SULFATE 325 MG EC TABLET PO SCH ×2 (06:49→16:56)
[2018-05-10] MEDS: MetFORMIN HCL 500 MG TABLET PO SCH ×2 (06:49→16:55)
[2018-05-10] MEDS: INSULIN LISPRO 100 UNITS/ML SQ PRN ×3 (06:50→22:08)
[2018-05-10 08:00] VITALS: BP 122/79
[2018-05-10] MEDS: ASPIRIN 81 MG CHEWABLE TABLET PO SCH (09:02)
[2018-05-10] MEDS: ASCORBIC ACID 500 MG TABLET PO SCH (09:02)
[2018-05-10] MEDS: MULTIVITAMINS WITH MINERALS, THERAPEUTIC TABLET PO SCH (09:03)
[2018-05-10] MEDS: QUEtiapine FUMARATE 200 MG TABLET PO SCH ×2 (09:03→21:35)
[2018-05-10] MEDS: LevETIRAcetam 250 MG TABLET PO SCH ×2 (09:03→16:56)
[2018-05-10] MEDS: DIVALPROEX SODIUM 500 MG DR TABLET PO SCH ×2 (09:03→16:56)
[2018-05-10] MEDS: OXYBUTYNIN CHLORIDE 5 MG ER TABLET PO SCH (09:03)
[2018-05-10] MEDS: LORATADINE 10 MG TABLET PO SCH (09:03)
[2018-05-10] MEDS: SIMVASTATIN 20 MG TABLET PO SCH (09:04)
[2018-05-10] MEDS: TOPIRAMATE 100 MG TABLET PO SCH ×3 (09:04→16:56)
[2018-05-10] MEDS: BENAZEPRIL HCL 5 MG TABLET PO SCH (09:04)
[2018-05-10 16:49] LABS: GLUCOMETER DEV NAME(LOC) 3EI C; GLUCOSE,POINT OF CARE 203 MG/DL (70-110)
[2018-05-10 19:42] VITALS: BP 112/66
[2018-05-10 22:13] LABS: GLUCOMETER DEV NAME(LOC) 3EI C; GLUCOSE,POINT OF CARE 180 MG/DL (70-110)
[2018-05-11 06:19] LABS: GLUCOMETER DEV NAME(LOC) 3EI C; GLUCOSE,POINT OF CARE 138 MG/DL (70-110)
[2018-05-11] MEDS: LEVOTHYROXINE SODIUM 50 MCG TABLET PO SCH (07:00)
[2018-05-11] MEDS: MetFORMIN HCL 500 MG TABLET PO SCH ×2 (07:00→17:02)
[2018-05-11] MEDS: FERROUS SULFATE 325 MG EC TABLET PO SCH ×2 (07:00→17:01)
[2018-05-11 08:17] VITALS: BP 125/82
[2018-05-11] MEDS: LORATADINE 10 MG TABLET PO SCH (08:22)
[2018-05-11] MEDS: ASCORBIC ACID 500 MG TABLET PO SCH (08:22)
[2018-05-11] MEDS: BENAZEPRIL HCL 5 MG TABLET PO SCH (08:23)
[2018-05-11] MEDS: DIVALPROEX SODIUM 500 MG DR TABLET PO SCH ×2 (08:23→17:01)
[2018-05-11] MEDS: LevETIRAcetam 250 MG TABLET PO SCH ×2 (08:23→17:01)
[2018-05-11] MEDS: MULTIVITAMINS WITH MINERALS, THERAPEUTIC TABLET PO SCH (08:23)
[2018-05-11] MEDS: OXYBUTYNIN CHLORIDE 5 MG ER TABLET PO SCH (08:24)
[2018-05-11] MEDS: SIMVASTATIN 20 MG TABLET PO SCH (08:24)
[2018-05-11] MEDS: TOPIRAMATE 100 MG TABLET PO SCH ×3 (08:24→17:01)
[2018-05-11] MEDS: ASPIRIN 81 MG CHEWABLE TABLET PO SCH (08:24)
[2018-05-11] MEDS: QUEtiapine FUMARATE 200 MG TABLET PO SCH ×2 (08:24→20:40)
[2018-05-11 11:33] LABS: GLUCOMETER DEV NAME(LOC) 3EI C; GLUCOSE,POINT OF CARE 116 MG/DL (70-110)
[2018-05-11 12:16] VITALS: BP 122/74
[2018-05-11] MEDS: HALOPERIDOL 5 MG TABLET PO PRN (12:45)
[2018-05-11 17:20] VITALS: BP 129/69
[2018-05-11 17:23] LABS: GLUCOMETER DEV NAME(LOC) 3EI C; GLUCOSE,POINT OF CARE 117 MG/DL (70-110)
[2018-05-11] MEDS: INSULIN LISPRO 100 UNITS/ML SQ PRN (21:16)
[2018-05-12] MEDS: MetFORMIN HCL 500 MG TABLET PO SCH ×2 (06:57→17:09)
[2018-05-12] MEDS: FERROUS SULFATE 325 MG EC TABLET PO SCH ×2 (06:57→17:09)
[2018-05-12] MEDS: LEVOTHYROXINE SODIUM 50 MCG TABLET PO SCH (06:57)
[2018-05-12 08:00] VITALS: BP 100/84
[2018-05-12] MEDS: TOPIRAMATE 100 MG TABLET PO SCH ×3 (08:01→17:09)
[2018-05-12] MEDS: ASCORBIC ACID 500 MG TABLET PO SCH (08:01)
[2018-05-12] MEDS: ASPIRIN 81 MG CHEWABLE TABLET PO SCH (08:01)
[2018-05-12] MEDS: SIMVASTATIN 20 MG TABLET PO SCH (08:02)
[2018-05-12] MEDS: LevETIRAcetam 250 MG TABLET PO SCH ×2 (08:02→17:08)
[2018-05-12] MEDS: MULTIVITAMINS WITH MINERALS, THERAPEUTIC TABLET PO SCH (08:02)
[2018-05-12] MEDS: DIVALPROEX SODIUM 500 MG DR TABLET PO SCH ×2 (08:02→17:09)
[2018-05-12] MEDS: LORATADINE 10 MG TABLET PO SCH (08:02)
[2018-05-12] MEDS: QUEtiapine FUMARATE 200 MG TABLET PO SCH ×2 (08:02→20:21)
[2018-05-12] MEDS: OXYBUTYNIN CHLORIDE 5 MG ER TABLET PO SCH (08:02)
[2018-05-12] MEDS: BENAZEPRIL HCL 5 MG TABLET PO SCH (08:03)
[2018-05-12 11:53] LABS: GLUCOMETER DEV NAME(LOC) 3EI C; GLUCOSE,POINT OF CARE 103 MG/DL (70-110)
[2018-05-12 16:20] VITALS: BP 114/78
[2018-05-12 16:23] LABS: GLUCOMETER DEV NAME(LOC) 3EI C; GLUCOSE,POINT OF CARE 151 MG/DL (70-110)
[2018-05-12] MEDS: INSULIN LISPRO 100 UNITS/ML SQ PRN ×2 (17:10→21:19)
[2018-05-12 21:22] LABS: GLUCOMETER DEV NAME(LOC) 3EI C; GLUCOSE,POINT OF CARE 167 MG/DL (70-110)
[2018-05-13 05:33] LABS: GLUCOMETER DEV NAME(LOC) 3EI C; GLUCOSE,POINT OF CARE 138 MG/DL (70-110)
[2018-05-13] MEDS: FERROUS SULFATE 325 MG EC TABLET PO SCH ×2 (06:41→17:02)
[2018-05-13] MEDS: LEVOTHYROXINE SODIUM 50 MCG TABLET PO SCH (06:41)
[2018-05-13] MEDS: MetFORMIN HCL 500 MG TABLET PO SCH ×2 (06:41→17:01)
[2018-05-13] MEDS: MULTIVITAMINS WITH MINERALS, THERAPEUTIC TABLET PO SCH (08:04)
[2018-05-13] MEDS: ASCORBIC ACID 500 MG TABLET PO SCH (08:04)
[2018-05-13] MEDS: QUEtiapine FUMARATE 200 MG TABLET PO SCH ×2 (08:04→20:19)
[2018-05-13] MEDS: SIMVASTATIN 20 MG TABLET PO SCH (08:04)
[2018-05-13] MEDS: OXYBUTYNIN CHLORIDE 5 MG ER TABLET PO SCH (08:04)
[2018-05-13] MEDS: ASPIRIN 81 MG CHEWABLE TABLET PO SCH (08:04)
[2018-05-13] MEDS: DIVALPROEX SODIUM 500 MG DR TABLET PO SCH ×2 (08:04→17:01)
[2018-05-13] MEDS: LevETIRAcetam 250 MG TABLET PO SCH ×2 (08:04→17:02)
[2018-05-13] MEDS: BENAZEPRIL HCL 5 MG TABLET PO SCH (08:04)
[2018-05-13] MEDS: LORATADINE 10 MG TABLET PO SCH (08:04)
[2018-05-13] MEDS: TOPIRAMATE 100 MG TABLET PO SCH ×3 (08:04→17:02)
[2018-05-13] MEDS ORDERED: BACITRACIN 28.4 GM OINTMENT TP SCH (09:00)
[2018-05-13 11:03] LABS: GLUCOMETER DEV NAME(LOC) 3EI C; GLUCOSE,POINT OF CARE 174 MG/DL (70-110)
[2018-05-13] MEDS: HALOPERIDOL 5 MG TABLET PO PRN ×2 (12:52→23:09)
[2018-05-13] MEDS: INSULIN LISPRO 100 UNITS/ML SQ PRN ×2 (12:53→17:00)
[2018-05-13 17:14] LABS: GLUCOMETER DEV NAME(LOC) 3EI C; GLUCOSE,POINT OF CARE 162 MG/DL (70-110)
[2018-05-14 05:33] LABS: GLUCOMETER DEV NAME(LOC) 3EI C; GLUCOSE,POINT OF CARE 164 MG/DL (70-110)
[2018-05-14] MEDS: FERROUS SULFATE 325 MG EC TABLET PO SCH ×2 (06:49→18:14)
[2018-05-14] MEDS: MetFORMIN HCL 500 MG TABLET PO SCH ×2 (06:49→18:14)
[2018-05-14] MEDS: LEVOTHYROXINE SODIUM 50 MCG TABLET PO SCH (06:49)
[2018-05-14] MEDS: INSULIN LISPRO 100 UNITS/ML SQ PRN ×2 (06:52→21:40)
[2018-05-14] MEDS: OXYBUTYNIN CHLORIDE 5 MG ER TABLET PO SCH (08:11)
[2018-05-14] MEDS: LORATADINE 10 MG TABLET PO SCH (08:11)
[2018-05-14] MEDS: ASPIRIN 81 MG CHEWABLE TABLET PO SCH (08:11)
[2018-05-14] MEDS: MULTIVITAMINS WITH MINERALS, THERAPEUTIC TABLET PO SCH (08:11)
[2018-05-14] MEDS: BENAZEPRIL HCL 5 MG TABLET PO SCH (08:11)
[2018-05-14] MEDS: QUEtiapine FUMARATE 200 MG TABLET PO SCH ×2 (08:12→21:39)
[2018-05-14] MEDS: LevETIRAcetam 250 MG TABLET PO SCH ×2 (08:12→18:00)
[2018-05-14] MEDS: TOPIRAMATE 100 MG TABLET PO SCH ×3 (08:12→18:00)
[2018-05-14] MEDS: ASCORBIC ACID 500 MG TABLET PO SCH (08:12)
[2018-05-14] MEDS: SIMVASTATIN 20 MG TABLET PO SCH (08:12)
[2018-05-14] MEDS: DIVALPROEX SODIUM 500 MG DR TABLET PO SCH ×2 (08:12→18:00)
[2018-05-14] MEDS: HALOPERIDOL 5 MG TABLET PO PRN (08:18)
[2018-05-14 08:28] VITALS: BP 117/72
[2018-05-14 12:03] LABS: GLUCOMETER DEV NAME(LOC) 3EI C; GLUCOSE,POINT OF CARE 123 MG/DL (70-110)
[2018-05-14 16:52] VITALS: BP 104/63
[2018-05-14 17:13] LABS: GLUCOMETER DEV NAME(LOC) 3EI C; GLUCOSE,POINT OF CARE 113 MG/DL (70-110)
[2018-05-14 21:53] LABS: GLUCOMETER DEV NAME(LOC) 3EI C; GLUCOSE,POINT OF CARE 141 MG/DL (70-110)
[2018-05-15 05:29] LABS: GLUCOMETER DEV NAME(LOC) 3EI C; GLUCOSE,POINT OF CARE 97 MG/DL (70-110)
[2018-05-15] MEDS: LEVOTHYROXINE SODIUM 50 MCG TABLET PO SCH (06:53)
[2018-05-15] MEDS: MetFORMIN HCL 500 MG TABLET PO SCH ×2 (06:54→18:30)
[2018-05-15] MEDS: INSULIN LISPRO 100 UNITS/ML SQ PRN (06:54)
[2018-05-15] MEDS: FERROUS SULFATE 325 MG EC TABLET PO SCH ×2 (06:54→18:30)
[2018-05-15] MEDS: LevETIRAcetam 250 MG TABLET PO SCH ×2 (08:27→17:45)
[2018-05-15] MEDS: BENAZEPRIL HCL 5 MG TABLET PO SCH (08:28)
[2018-05-15] MEDS: MULTIVITAMINS WITH MINERALS, THERAPEUTIC TABLET PO SCH (08:28)
[2018-05-15] MEDS: LORATADINE 10 MG TABLET PO SCH (08:28)
[2018-05-15] MEDS: TOPIRAMATE 100 MG TABLET PO SCH ×3 (08:28→17:45)
[2018-05-15] MEDS: QUEtiapine FUMARATE 200 MG TABLET PO SCH ×2 (08:28→20:26)
[2018-05-15] MEDS: DIVALPROEX SODIUM 500 MG DR TABLET PO SCH ×2 (08:28→18:00)
[2018-05-15] MEDS: OXYBUTYNIN CHLORIDE 5 MG ER TABLET PO SCH (08:29)
[2018-05-15] MEDS: ASCORBIC ACID 500 MG TABLET PO SCH (08:29)
[2018-05-15] MEDS: HALOPERIDOL 5 MG TABLET PO PRN (08:29)
[2018-05-15] MEDS: SIMVASTATIN 20 MG TABLET PO SCH (08:29)
[2018-05-15] MEDS: ASPIRIN 81 MG CHEWABLE TABLET PO SCH (08:29)
[2018-05-15 08:43] VITALS: BP 143/65
[2018-05-15 12:03] LABS: GLUCOMETER DEV NAME(LOC) 3EI C; GLUCOSE,POINT OF CARE 93 MG/DL (70-110)
[2018-05-15 16:06] VITALS: BP 117/77
[2018-05-15 17:19] LABS: GLUCOMETER DEV NAME(LOC) 3EI C; GLUCOSE,POINT OF CARE 109 MG/DL (70-110)
[2018-05-15 21:58] LABS: GLUCOMETER DEV NAME(LOC) 3EI C; GLUCOSE,POINT OF CARE 97 MG/DL (70-110)
[2018-05-16 05:34] LABS: GLUCOMETER DEV NAME(LOC) 3EI C; GLUCOSE,POINT OF CARE 115 MG/DL (70-110)
[2018-05-16] MEDS: LEVOTHYROXINE SODIUM 50 MCG TABLET PO SCH (06:39)
[2018-05-16] MEDS: FERROUS SULFATE 325 MG EC TABLET PO SCH ×2 (06:40→18:10)
[2018-05-16] MEDS: MetFORMIN HCL 500 MG TABLET PO SCH ×2 (06:40→18:10)
[2018-05-16] MEDS: LORATADINE 10 MG TABLET PO SCH (08:02)
[2018-05-16] MEDS: QUEtiapine FUMARATE 200 MG TABLET PO SCH ×2 (08:03→21:20)
[2018-05-16] MEDS: DIVALPROEX SODIUM 500 MG DR TABLET PO SCH ×2 (08:03→18:00)
[2018-05-16] MEDS: MULTIVITAMINS WITH MINERALS, THERAPEUTIC TABLET PO SCH (08:03)
[2018-05-16] MEDS: ASCORBIC ACID 500 MG TABLET PO SCH (08:04)
[2018-05-16] MEDS: LevETIRAcetam 250 MG TABLET PO SCH ×2 (08:04→18:00)
[2018-05-16] MEDS: SIMVASTATIN 20 MG TABLET PO SCH (08:04)
[2018-05-16] MEDS: TOPIRAMATE 100 MG TABLET PO SCH ×3 (08:04→18:00)
[2018-05-16] MEDS: ASPIRIN 81 MG CHEWABLE TABLET PO SCH (08:04)
[2018-05-16] MEDS: HALOPERIDOL 5 MG TABLET PO PRN (08:05)
[2018-05-16] MEDS: OXYBUTYNIN CHLORIDE 5 MG ER TABLET PO SCH (08:05)
[2018-05-16] MEDS: BENAZEPRIL HCL 5 MG TABLET PO SCH (08:05)
[2018-05-16 11:30] LABS: GLUCOMETER DEV NAME(LOC) 3EI C; GLUCOSE,POINT OF CARE 143 MG/DL (70-110)
[2018-05-16] MEDS: INSULIN LISPRO 100 UNITS/ML SQ PRN ×2 (11:33→21:21)
[2018-05-16 14:33] VITALS: BP 136/90
[2018-05-16 16:08] VITALS: BP 110/88
[2018-05-16 17:39] LABS: GLUCOMETER DEV NAME(LOC) 3EI C; GLUCOSE,POINT OF CARE 100 MG/DL (70-110)
[2018-05-16 20:54] LABS: GLUCOMETER DEV NAME(LOC) 3EI C; GLUCOSE,POINT OF CARE 180 MG/DL (70-110)
[2018-05-17] MEDS: LEVOTHYROXINE SODIUM 50 MCG TABLET PO SCH (07:00)
[2018-05-17] MEDS: MetFORMIN HCL 500 MG TABLET PO SCH ×2 (07:02→17:39)
[2018-05-17] MEDS: FERROUS SULFATE 325 MG EC TABLET PO SCH ×2 (07:02→17:39)
[2018-05-17] MEDS: HALOPERIDOL 5 MG TABLET PO PRN (09:04)
[2018-05-17] MEDS: DIVALPROEX SODIUM 500 MG DR TABLET PO SCH ×2 (09:05→17:39)
[2018-05-17] MEDS: LORATADINE 10 MG TABLET PO SCH (09:05)
[2018-05-17] MEDS: ASPIRIN 81 MG CHEWABLE TABLET PO SCH (09:05)
[2018-05-17] MEDS: QUEtiapine FUMARATE 200 MG TABLET PO SCH ×2 (09:05→20:35)
[2018-05-17] MEDS: MULTIVITAMINS WITH MINERALS, THERAPEUTIC TABLET PO SCH (09:05)
[2018-05-17] MEDS: SIMVASTATIN 20 MG TABLET PO SCH (09:05)
[2018-05-17] MEDS: TOPIRAMATE 100 MG TABLET PO SCH ×3 (09:06→17:39)
[2018-05-17] MEDS: ASCORBIC ACID 500 MG TABLET PO SCH (09:06)
[2018-05-17] MEDS: LevETIRAcetam 250 MG TABLET PO SCH ×2 (09:06→17:39)
[2018-05-17] MEDS: OXYBUTYNIN CHLORIDE 5 MG ER TABLET PO SCH (09:06)
[2018-05-17] MEDS: BENAZEPRIL HCL 5 MG TABLET PO SCH (09:07)
[2018-05-17 11:28] LABS: GLUCOMETER DEV NAME(LOC) 3EI C; GLUCOSE,POINT OF CARE 112 MG/DL (70-110)
[2018-05-17 16:17] VITALS: BP 117/78
[2018-05-17 17:32] LABS: GLUCOMETER DEV NAME(LOC) 3EI C; GLUCOSE,POINT OF CARE 124 MG/DL (70-110)
[2018-05-18] MEDS: LEVOTHYROXINE SODIUM 50 MCG TABLET PO SCH (06:53)
[2018-05-18] MEDS: FERROUS SULFATE 325 MG EC TABLET PO SCH ×2 (06:53→17:53)
[2018-05-18] MEDS: MetFORMIN HCL 500 MG TABLET PO SCH ×2 (06:53→17:53)
[2018-05-18 08:55] VITALS: BP 134/93
[2018-05-18] MEDS: MULTIVITAMINS WITH MINERALS, THERAPEUTIC TABLET PO SCH (09:00)
[2018-05-18] MEDS: TOPIRAMATE 100 MG TABLET PO SCH ×3 (09:00→17:53)
[2018-05-18] MEDS: QUEtiapine FUMARATE 200 MG TABLET PO SCH ×2 (09:00→20:35)
[2018-05-18] MEDS: ASCORBIC ACID 500 MG TABLET PO SCH (09:00)
[2018-05-18] MEDS: LORATADINE 10 MG TABLET PO SCH (09:00)
[2018-05-18] MEDS: LevETIRAcetam 250 MG TABLET PO SCH ×2 (09:00→17:53)
[2018-05-18] MEDS: OXYBUTYNIN CHLORIDE 5 MG ER TABLET PO SCH (09:00)
[2018-05-18] MEDS: DIVALPROEX SODIUM 500 MG DR TABLET PO SCH ×2 (09:00→17:53)
[2018-05-18] MEDS: SIMVASTATIN 20 MG TABLET PO SCH (09:00)
[2018-05-18] MEDS: ASPIRIN 81 MG CHEWABLE TABLET PO SCH (09:00)
[2018-05-18] MEDS: BENAZEPRIL HCL 5 MG TABLET PO SCH (09:00)
[2018-05-18 11:23] LABS: GLUCOMETER DEV NAME(LOC) 3EI C; GLUCOSE,POINT OF CARE 156 MG/DL (70-110)
[2018-05-18] MEDS: INSULIN LISPRO 100 UNITS/ML SQ PRN ×3 (11:26→21:30)
[2018-05-18] MEDS ORDERED: HALOPERIDOL LACTATE 5 MG/ML VIAL ONE (12:36)
[2018-05-18] MEDS ORDERED: DiphenhydrAMINE HCL 50 MG/ML VIAL ONE (12:37)
[2018-05-18] MEDS ORDERED: LORazepam 2 MG/ML VIAL ONE (12:37)
[2018-05-18] MEDS ORDERED: HALOPERIDOL LACTATE 5 MG/ML VIAL IM ONE (12:45)
[2018-05-18] MEDS ORDERED: DiphenhydrAMINE HCL 50 MG/ML VIAL IM ONE (12:45)
[2018-05-18] MEDS ORDERED: LORazepam 2 MG/ML VIAL IM ONE (12:45)
[2018-05-18 16:39] LABS: GLUCOMETER DEV NAME(LOC) 3EI C; GLUCOSE,POINT OF CARE 168 MG/DL (70-110)
[2018-05-18 20:53] LABS: GLUCOMETER DEV NAME(LOC) 3EI C; GLUCOSE,POINT OF CARE 160 MG/DL (70-110)
[2018-05-19 05:44] LABS: GLUCOMETER DEV NAME(LOC) 3EI C; GLUCOSE,POINT OF CARE 118 MG/DL (70-110)
[2018-05-19] MEDS: LEVOTHYROXINE SODIUM 50 MCG TABLET PO SCH (06:40)
[2018-05-19] MEDS: MetFORMIN HCL 500 MG TABLET PO SCH ×2 (06:40→16:17)
[2018-05-19] MEDS: FERROUS SULFATE 325 MG EC TABLET PO SCH ×2 (06:40→16:16)
[2018-05-19] MEDS: LORATADINE 10 MG TABLET PO SCH (07:55)
[2018-05-19] MEDS: ASPIRIN 81 MG CHEWABLE TABLET PO SCH (07:55)
[2018-05-19] MEDS: QUEtiapine FUMARATE 200 MG TABLET PO SCH ×2 (07:55→20:14)
[2018-05-19] MEDS: DIVALPROEX SODIUM 500 MG DR TABLET PO SCH ×2 (07:55→16:16)
[2018-05-19] MEDS: SIMVASTATIN 20 MG TABLET PO SCH (07:55)
[2018-05-19] MEDS: MULTIVITAMINS WITH MINERALS, THERAPEUTIC TABLET PO SCH (07:55)
[2018-05-19] MEDS: BENAZEPRIL HCL 5 MG TABLET PO SCH (07:56)
[2018-05-19] MEDS: OXYBUTYNIN CHLORIDE 5 MG ER TABLET PO SCH (07:56)
[2018-05-19] MEDS: TOPIRAMATE 100 MG TABLET PO SCH ×3 (07:56→16:16)
[2018-05-19] MEDS: LevETIRAcetam 250 MG TABLET PO SCH ×2 (07:56→16:16)
[2018-05-19] MEDS: ASCORBIC ACID 500 MG TABLET PO SCH (07:56)
[2018-05-19 08:30] VITALS: BP 108/92
[2018-05-19 11:33] LABS: GLUCOMETER DEV NAME(LOC) 3EX 1; GLUCOSE,POINT OF CARE 139 MG/DL (70-110)
[2018-05-19 12:59] VITALS: BP 108/92
[2018-05-19] MEDS: INSULIN LISPRO 100 UNITS/ML SQ PRN ×2 (16:31→20:59)
[2018-05-19 16:43] LABS: GLUCOMETER DEV NAME(LOC) 3EX 1; GLUCOSE,POINT OF CARE 145 MG/DL (70-110)
[2018-05-19 20:58] LABS: GLUCOMETER DEV NAME(LOC) 3EX 1; GLUCOSE,POINT OF CARE 153 MG/DL (70-110)
[2018-05-20] MEDS: FERROUS SULFATE 325 MG EC TABLET PO SCH ×2 (06:47→17:19)
[2018-05-20] MEDS: LEVOTHYROXINE SODIUM 50 MCG TABLET PO SCH (06:47)
[2018-05-20] MEDS: MetFORMIN HCL 500 MG TABLET PO SCH ×2 (06:47→17:18)
[2018-05-20] MEDS: BENAZEPRIL HCL 5 MG TABLET PO SCH (09:00)
[2018-05-20] MEDS: LORATADINE 10 MG TABLET PO SCH (09:01)
[2018-05-20] MEDS: DIVALPROEX SODIUM 500 MG DR TABLET PO SCH ×2 (09:01→17:19)
[2018-05-20] MEDS: QUEtiapine FUMARATE 200 MG TABLET PO SCH ×2 (09:02→20:18)
[2018-05-20] MEDS: ASCORBIC ACID 500 MG TABLET PO SCH (09:02)
[2018-05-20] MEDS: SIMVASTATIN 20 MG TABLET PO SCH (09:02)
[2018-05-20] MEDS: MULTIVITAMINS WITH MINERALS, THERAPEUTIC TABLET PO SCH (09:02)
[2018-05-20] MEDS: LevETIRAcetam 250 MG TABLET PO SCH ×2 (09:03→17:18)
[2018-05-20] MEDS: ASPIRIN 81 MG CHEWABLE TABLET PO SCH (09:03)
[2018-05-20] MEDS: TOPIRAMATE 100 MG TABLET PO SCH ×3 (09:03→17:18)
[2018-05-20] MEDS: OXYBUTYNIN CHLORIDE 5 MG ER TABLET PO SCH (09:03)
[2018-05-20 16:05] VITALS: BP 115/78
[2018-05-20 16:48] LABS: GLUCOMETER DEV NAME(LOC) 3EX 1; GLUCOSE,POINT OF CARE 205 MG/DL (70-110)
[2018-05-20] MEDS: INSULIN LISPRO 100 UNITS/ML SQ PRN ×2 (17:18→21:40)
[2018-05-20 20:24] LABS: GLUCOMETER DEV NAME(LOC) 3EX 1; GLUCOSE,POINT OF CARE 173 MG/DL (70-110)
[2018-05-21] MEDS: LEVOTHYROXINE SODIUM 50 MCG TABLET PO SCH ×3 (06:47→06:49)
[2018-05-21] MEDS: FERROUS SULFATE 325 MG EC TABLET PO SCH ×2 (06:48→17:33)
[2018-05-21] MEDS: MetFORMIN HCL 500 MG TABLET PO SCH ×2 (06:49→17:33)
[2018-05-21] MEDS: ASCORBIC ACID 500 MG TABLET PO SCH (09:20)
[2018-05-21] MEDS: TOPIRAMATE 100 MG TABLET PO SCH ×3 (09:20→17:33)
[2018-05-21] MEDS: BENAZEPRIL HCL 5 MG TABLET PO SCH (09:20)
[2018-05-21] MEDS: ASPIRIN 81 MG CHEWABLE TABLET PO SCH (09:20)
[2018-05-21] MEDS: MULTIVITAMINS WITH MINERALS, THERAPEUTIC TABLET PO SCH (09:20)
[2018-05-21] MEDS: OXYBUTYNIN CHLORIDE 5 MG ER TABLET PO SCH (09:20)
[2018-05-21] MEDS: LevETIRAcetam 250 MG TABLET PO SCH ×2 (09:20→17:33)
[2018-05-21] MEDS: DIVALPROEX SODIUM 500 MG DR TABLET PO SCH ×2 (09:21→17:33)
[2018-05-21] MEDS: LORATADINE 10 MG TABLET PO SCH (09:21)
[2018-05-21] MEDS: SIMVASTATIN 20 MG TABLET PO SCH (09:21)
[2018-05-21] MEDS: QUEtiapine FUMARATE 200 MG TABLET PO SCH ×2 (09:21→21:25)
[2018-05-21] MEDS: HALOPERIDOL 5 MG TABLET PO PRN (09:22)
[2018-05-21 10:05] VITALS: BP 103/68
[2018-05-21 11:28] LABS: GLUCOMETER DEV NAME(LOC) 3EX 1; GLUCOSE,POINT OF CARE 137 MG/DL (70-110)
[2018-05-21 16:34] LABS: GLUCOMETER DEV NAME(LOC) 3EX 1; GLUCOSE,POINT OF CARE 180 MG/DL (70-110)
[2018-05-21 16:52] VITALS: BP 115/72
[2018-05-21] MEDS: INSULIN LISPRO 100 UNITS/ML SQ PRN (17:37)
[2018-05-22 06:08] LABS: GLUCOMETER DEV NAME(LOC) 3EX 1; GLUCOSE,POINT OF CARE 98 MG/DL (70-110)
[2018-05-22] MEDS: FERROUS SULFATE 325 MG EC TABLET PO SCH ×2 (06:51→16:51)
[2018-05-22] MEDS: MetFORMIN HCL 500 MG TABLET PO SCH ×2 (06:51→16:51)
[2018-05-22] MEDS: LEVOTHYROXINE SODIUM 50 MCG TABLET PO SCH (06:51)
[2018-05-22] MEDS: DIVALPROEX SODIUM 500 MG DR TABLET PO SCH ×2 (09:32→16:51)
[2018-05-22] MEDS: LORATADINE 10 MG TABLET PO SCH (09:32)
[2018-05-22] MEDS: MULTIVITAMINS WITH MINERALS, THERAPEUTIC TABLET PO SCH (09:32)
[2018-05-22] MEDS: QUEtiapine FUMARATE 200 MG TABLET PO SCH ×2 (09:32→20:04)
[2018-05-22] MEDS: ASCORBIC ACID 500 MG TABLET PO SCH (09:33)
[2018-05-22] MEDS: ASPIRIN 81 MG CHEWABLE TABLET PO SCH (09:33)
[2018-05-22] MEDS: LevETIRAcetam 250 MG TABLET PO SCH ×2 (09:33→16:51)
[2018-05-22] MEDS: OXYBUTYNIN CHLORIDE 5 MG ER TABLET PO SCH (09:33)
[2018-05-22] MEDS: SIMVASTATIN 20 MG TABLET PO SCH (09:33)
[2018-05-22] MEDS: TOPIRAMATE 100 MG TABLET PO SCH ×3 (09:34→16:51)
[2018-05-22] MEDS: BENAZEPRIL HCL 5 MG TABLET PO SCH (09:34)
[2018-05-22 10:53] LABS: GLUCOMETER DEV NAME(LOC) 3EX 1; GLUCOSE,POINT OF CARE 183 MG/DL (70-110)
[2018-05-22 16:05] VITALS: BP 118/75
[2018-05-23 05:54] LABS: GLUCOMETER DEV NAME(LOC) 3EX 1; GLUCOSE,POINT OF CARE 125 MG/DL (70-110)
[2018-05-23] MEDS: FERROUS SULFATE 325 MG EC TABLET PO SCH ×2 (06:56→17:02)
[2018-05-23] MEDS: LEVOTHYROXINE SODIUM 50 MCG TABLET PO SCH ×2 (06:56→09:19)
[2018-05-23] MEDS: MetFORMIN HCL 500 MG TABLET PO SCH ×2 (06:56→17:02)
[2018-05-23] MEDS: INSULIN LISPRO 100 UNITS/ML SQ PRN ×3 (07:03→22:02)
[2018-05-23 08:12] VITALS: BP 132/75
[2018-05-23] MEDS: MULTIVITAMINS WITH MINERALS, THERAPEUTIC TABLET PO SCH (09:16)
[2018-05-23] MEDS: DIVALPROEX SODIUM 500 MG DR TABLET PO SCH ×2 (09:17→17:02)
[2018-05-23] MEDS: QUEtiapine FUMARATE 200 MG TABLET PO SCH ×2 (09:17→20:58)
[2018-05-23] MEDS: TOPIRAMATE 100 MG TABLET PO SCH ×3 (09:18→17:02)
[2018-05-23] MEDS: LORATADINE 10 MG TABLET PO SCH (09:18)
[2018-05-23] MEDS: ASPIRIN 81 MG CHEWABLE TABLET PO SCH (09:18)
[2018-05-23] MEDS: SIMVASTATIN 20 MG TABLET PO SCH (09:18)
[2018-05-23] MEDS: OXYBUTYNIN CHLORIDE 5 MG ER TABLET PO SCH (09:18)
[2018-05-23] MEDS: LevETIRAcetam 250 MG TABLET PO SCH ×2 (09:18→17:02)
[2018-05-23] MEDS: ASCORBIC ACID 500 MG TABLET PO SCH (09:19)
[2018-05-23] MEDS: BENAZEPRIL HCL 5 MG TABLET PO SCH (09:20)
[2018-05-23 11:43] LABS: GLUCOMETER DEV NAME(LOC) 3EX 1; GLUCOSE,POINT OF CARE 136 MG/DL (70-110)
[2018-05-23 16:19] VITALS: BP 128/77
[2018-05-23 17:29] LABS: GLUCOMETER DEV NAME(LOC) 3EX 1; GLUCOSE,POINT OF CARE 113 MG/DL (70-110)
[2018-05-23 22:49] LABS: GLUCOMETER DEV NAME(LOC) 3EX 1; GLUCOSE,POINT OF CARE 189 MG/DL (70-110)
[2018-05-24 05:39] LABS: GLUCOMETER DEV NAME(LOC) 3EX 1; GLUCOSE,POINT OF CARE 102 MG/DL (70-110)
[2018-05-24 07:06] VITALS: BP 121/76
[2018-05-24] MEDS: FERROUS SULFATE 325 MG EC TABLET PO SCH ×2 (07:19→16:22)
[2018-05-24] MEDS: MetFORMIN HCL 500 MG TABLET PO SCH ×2 (07:19→16:22)
[2018-05-24 08:00] VITALS: BP 110/66
[2018-05-24] MEDS: ASCORBIC ACID 500 MG TABLET PO SCH (08:21)
[2018-05-24] MEDS: OMEPRAZOLE 20 MG CAPSULE PO PRN (08:21)
[2018-05-24] MEDS: SIMVASTATIN 20 MG TABLET PO SCH (08:21)
[2018-05-24] MEDS: LORATADINE 10 MG TABLET PO SCH (08:21)
[2018-05-24] MEDS: QUEtiapine FUMARATE 200 MG TABLET PO SCH ×2 (08:21→20:24)
[2018-05-24] MEDS: BENAZEPRIL HCL 5 MG TABLET PO SCH (08:21)
[2018-05-24] MEDS: LevETIRAcetam 250 MG TABLET PO SCH ×2 (08:21→16:22)
[2018-05-24] MEDS: MULTIVITAMINS WITH MINERALS, THERAPEUTIC TABLET PO SCH (08:21)
[2018-05-24] MEDS: TOPIRAMATE 100 MG TABLET PO SCH ×3 (08:21→16:22)
[2018-05-24] MEDS: OXYBUTYNIN CHLORIDE 5 MG ER TABLET PO SCH (08:21)
[2018-05-24] MEDS: DIVALPROEX SODIUM 500 MG DR TABLET PO SCH ×2 (08:22→16:22)
[2018-05-24] MEDS: ASPIRIN 81 MG CHEWABLE TABLET PO SCH (08:22)
[2018-05-24 11:19] LABS: GLUCOMETER DEV NAME(LOC) 3EX 1; GLUCOSE,POINT OF CARE 184 MG/DL (70-110)
[2018-05-24] MEDS: CHLORHEXIDINE GLUCONATE 4% 118 ML TOPICAL LIQUID TP SCH (12:04)
[2018-05-24] MEDS: INSULIN LISPRO 100 UNITS/ML SQ PRN ×2 (12:32→20:51)
[2018-05-24 16:44] LABS: GLUCOMETER DEV NAME(LOC) 3EX 1; GLUCOSE,POINT OF CARE 152 MG/DL (70-110)
[2018-05-24 17:46] VITALS: BP 134/75
[2018-05-24 20:53] LABS: GLUCOMETER DEV NAME(LOC) 3EX 1; GLUCOSE,POINT OF CARE 164 MG/DL (70-110)
[2018-05-25 05:34] LABS: GLUCOMETER DEV NAME(LOC) 3EX 1; GLUCOSE,POINT OF CARE 154 MG/DL (70-110)
[2018-05-25] MEDS: LEVOTHYROXINE SODIUM 50 MCG TABLET PO SCH (07:00)
[2018-05-25] MEDS: FERROUS SULFATE 325 MG EC TABLET PO SCH ×2 (07:01→16:58)
[2018-05-25] MEDS: MetFORMIN HCL 500 MG TABLET PO SCH ×2 (07:02→16:58)
[2018-05-25] MEDS: INSULIN LISPRO 100 UNITS/ML SQ PRN ×4 (07:03→20:47)
[2018-05-25 08:00] VITALS: BP 103/81
[2018-05-25] MEDS: DIVALPROEX SODIUM 500 MG DR TABLET PO SCH ×2 (09:00→16:58)
[2018-05-25] MEDS: LORATADINE 10 MG TABLET PO SCH (09:00)
[2018-05-25] MEDS: QUEtiapine FUMARATE 200 MG TABLET PO SCH ×2 (09:00→20:46)
[2018-05-25] MEDS: ASPIRIN 81 MG CHEWABLE TABLET PO SCH (09:00)
[2018-05-25] MEDS: SIMVASTATIN 20 MG TABLET PO SCH (09:00)
[2018-05-25] MEDS: OXYBUTYNIN CHLORIDE 5 MG ER TABLET PO SCH (09:00)
[2018-05-25] MEDS: MULTIVITAMINS WITH MINERALS, THERAPEUTIC TABLET PO SCH (09:00)
[2018-05-25] MEDS: LevETIRAcetam 250 MG TABLET PO SCH ×2 (09:00→16:58)
[2018-05-25] MEDS: TOPIRAMATE 100 MG TABLET PO SCH ×3 (09:00→16:58)
[2018-05-25] MEDS: ASCORBIC ACID 500 MG TABLET PO SCH (09:00)
[2018-05-25] MEDS: BENAZEPRIL HCL 5 MG TABLET PO SCH (09:00)
[2018-05-25] MEDS: CHLORHEXIDINE GLUCONATE 4% 118 ML TOPICAL LIQUID TP SCH (09:00)
[2018-05-25 16:28] LABS: GLUCOMETER DEV NAME(LOC) 3EX 1; GLUCOSE,POINT OF CARE 175 MG/DL (70-110)
[2018-05-25 16:59] VITALS: BP 118/70
[2018-05-25 20:53] LABS: GLUCOMETER DEV NAME(LOC) 3EX 1; GLUCOSE,POINT OF CARE 174 MG/DL (70-110)
[2018-05-26 05:49] LABS: GLUCOMETER DEV NAME(LOC) 3EX 1; GLUCOSE,POINT OF CARE 203 MG/DL (70-110)
[2018-05-26] MEDS: INSULIN LISPRO 100 UNITS/ML SQ PRN ×4 (06:48→20:26)
[2018-05-26] MEDS: FERROUS SULFATE 325 MG EC TABLET PO SCH ×2 (07:02→16:34)
[2018-05-26] MEDS: MetFORMIN HCL 500 MG TABLET PO SCH ×2 (07:02→16:33)
[2018-05-26] MEDS: LEVOTHYROXINE SODIUM 50 MCG TABLET PO SCH (07:02)
[2018-05-26 09:59] VITALS: BP 119/75
[2018-05-26] MEDS: LevETIRAcetam 250 MG TABLET PO SCH ×2 (10:59→16:34)
[2018-05-26] MEDS: TOPIRAMATE 100 MG TABLET PO SCH ×3 (10:59→16:34)
[2018-05-26] MEDS: MULTIVITAMINS WITH MINERALS, THERAPEUTIC TABLET PO SCH (11:00)
[2018-05-26] MEDS: LORATADINE 10 MG TABLET PO SCH (11:05)
[2018-05-26] MEDS: ASCORBIC ACID 500 MG TABLET PO SCH (11:06)
[2018-05-26] MEDS: OMEPRAZOLE 20 MG CAPSULE PO PRN (11:06)
[2018-05-26] MEDS: DOCUSATE SODIUM 100 MG CAPSULE PO PRN (11:08)
[2018-05-26] MEDS: QUEtiapine FUMARATE 200 MG TABLET PO SCH ×2 (11:09→20:25)
[2018-05-26] MEDS: OXYBUTYNIN CHLORIDE 5 MG ER TABLET PO SCH (11:10)
[2018-05-26] MEDS: DIVALPROEX SODIUM 500 MG DR TABLET PO SCH ×2 (11:21→16:34)
[2018-05-26] MEDS: SIMVASTATIN 20 MG TABLET PO SCH (11:22)
[2018-05-26] MEDS: ASPIRIN 81 MG CHEWABLE TABLET PO SCH (11:26)
[2018-05-26] MEDS: CHLORHEXIDINE GLUCONATE 4% 118 ML TOPICAL LIQUID TP SCH (11:43)
[2018-05-26] MEDS: BENAZEPRIL HCL 5 MG TABLET PO SCH (11:43)
[2018-05-26 11:58] LABS: GLUCOMETER DEV NAME(LOC) 3EX 1; GLUCOSE,POINT OF CARE 178 MG/DL (70-110)
[2018-05-26 16:31] VITALS: BP 117/69
[2018-05-26 16:33] LABS: GLUCOMETER DEV NAME(LOC) 3EX 1; GLUCOSE,POINT OF CARE 175 MG/DL (70-110)
[2018-05-26 20:29] LABS: GLUCOMETER DEV NAME(LOC) 3EX 1; GLUCOSE,POINT OF CARE 185 MG/DL (70-110)
[2018-05-27] MEDS: MetFORMIN HCL 500 MG TABLET PO SCH ×2 (06:43→16:30)
[2018-05-27] MEDS: FERROUS SULFATE 325 MG EC TABLET PO SCH ×2 (06:43→16:30)
[2018-05-27] MEDS: LEVOTHYROXINE SODIUM 50 MCG TABLET PO SCH (06:43)
[2018-05-27 08:03] VITALS: BP 130/96
[2018-05-27] MEDS: ASPIRIN 81 MG CHEWABLE TABLET PO SCH (08:40)
[2018-05-27] MEDS: DIVALPROEX SODIUM 500 MG DR TABLET PO SCH ×2 (08:40→16:30)
[2018-05-27] MEDS: TOPIRAMATE 100 MG TABLET PO SCH ×3 (08:40→16:30)
[2018-05-27] MEDS: ASCORBIC ACID 500 MG TABLET PO SCH (08:40)
[2018-05-27] MEDS: BENAZEPRIL HCL 5 MG TABLET PO SCH (08:40)
[2018-05-27] MEDS: SIMVASTATIN 20 MG TABLET PO SCH (08:40)
[2018-05-27] MEDS: QUEtiapine FUMARATE 200 MG TABLET PO SCH ×2 (08:41→20:18)
[2018-05-27] MEDS: OXYBUTYNIN CHLORIDE 5 MG ER TABLET PO SCH (08:41)
[2018-05-27] MEDS: LevETIRAcetam 250 MG TABLET PO SCH ×2 (08:41→16:30)
[2018-05-27] MEDS: LORATADINE 10 MG TABLET PO SCH (08:41)
[2018-05-27] MEDS: MULTIVITAMINS WITH MINERALS, THERAPEUTIC TABLET PO SCH (08:41)
[2018-05-27] MEDS: CHLORHEXIDINE GLUCONATE 4% 118 ML TOPICAL LIQUID TP SCH (09:00)
[2018-05-27 16:48] LABS: GLUCOMETER DEV NAME(LOC) 3EX 1; GLUCOSE,POINT OF CARE 217 MG/DL (70-110)
[2018-05-27] MEDS: INSULIN LISPRO 100 UNITS/ML SQ PRN ×2 (17:32→20:54)
[2018-05-27 20:53] LABS: GLUCOMETER DEV NAME(LOC) 3EX 1; GLUCOSE,POINT OF CARE 156 MG/DL (70-110)
[2018-05-28 05:34] LABS: GLUCOMETER DEV NAME(LOC) 3EX 1; GLUCOSE,POINT OF CARE 126 MG/DL (70-110)
[2018-05-28] MEDS: MetFORMIN HCL 500 MG TABLET PO SCH ×2 (07:01→16:41)
[2018-05-28] MEDS: LEVOTHYROXINE SODIUM 50 MCG TABLET PO SCH (07:01)
[2018-05-28] MEDS: FERROUS SULFATE 325 MG EC TABLET PO SCH ×2 (07:02→16:41)
[2018-05-28] MEDS: LevETIRAcetam 250 MG TABLET PO SCH ×2 (10:08→16:41)
[2018-05-28] MEDS: MULTIVITAMINS WITH MINERALS, THERAPEUTIC TABLET PO SCH (10:09)
[2018-05-28] MEDS: DIVALPROEX SODIUM 500 MG DR TABLET PO SCH ×2 (10:09→16:41)
[2018-05-28] MEDS: TOPIRAMATE 100 MG TABLET PO SCH ×3 (10:09→16:41)
[2018-05-28] MEDS: OXYBUTYNIN CHLORIDE 5 MG ER TABLET PO SCH (10:09)
[2018-05-28] MEDS: BENAZEPRIL HCL 5 MG TABLET PO SCH (10:09)
[2018-05-28] MEDS: ASCORBIC ACID 500 MG TABLET PO SCH (10:09)
[2018-05-28] MEDS: SIMVASTATIN 20 MG TABLET PO SCH (10:09)
[2018-05-28] MEDS: QUEtiapine FUMARATE 200 MG TABLET PO SCH ×2 (10:09→21:15)
[2018-05-28] MEDS: ASPIRIN 81 MG CHEWABLE TABLET PO SCH (10:10)
[2018-05-28] MEDS: LORATADINE 10 MG TABLET PO SCH (10:10)
[2018-05-28] MEDS: CHLORHEXIDINE GLUCONATE 4% 118 ML TOPICAL LIQUID TP SCH (10:11)
[2018-05-28 11:33] LABS: GLUCOMETER DEV NAME(LOC) 3EX 1; GLUCOSE,POINT OF CARE 154 MG/DL (70-110)
[2018-05-28 11:57] VITALS: BP 120/67
[2018-05-28] MEDS: INSULIN LISPRO 100 UNITS/ML SQ PRN ×2 (12:22→17:33)
[2018-05-28 16:31] VITALS: BP 118/78
[2018-05-28 17:34] LABS: GLUCOMETER DEV NAME(LOC) 3EX 1; GLUCOSE,POINT OF CARE 158 MG/DL (70-110)
[2018-05-28 21:33] LABS: GLUCOMETER DEV NAME(LOC) 3EX 1; GLUCOSE,POINT OF CARE 114 MG/DL (70-110)
[2018-05-29 02:00] VITALS: BP 121/71
[2018-05-29 05:39] LABS: GLUCOMETER DEV NAME(LOC) 3EX 1; GLUCOSE,POINT OF CARE 215 MG/DL (70-110)
[2018-05-29] MEDS: FERROUS SULFATE 325 MG EC TABLET PO SCH ×2 (06:49→17:37)
[2018-05-29] MEDS: MetFORMIN HCL 500 MG TABLET PO SCH ×2 (06:49→17:37)
[2018-05-29] MEDS: LEVOTHYROXINE SODIUM 50 MCG TABLET PO SCH (06:49)
[2018-05-29] MEDS: INSULIN LISPRO 100 UNITS/ML SQ PRN ×3 (06:50→21:40)
[2018-05-29] MEDS: ASPIRIN 81 MG CHEWABLE TABLET PO SCH (09:16)
[2018-05-29] MEDS: LORATADINE 10 MG TABLET PO SCH (09:16)
[2018-05-29] MEDS: QUEtiapine FUMARATE 200 MG TABLET PO SCH ×2 (09:17→20:19)
[2018-05-29] MEDS: DIVALPROEX SODIUM 500 MG DR TABLET PO SCH ×2 (09:17→17:37)
[2018-05-29] MEDS: TOPIRAMATE 100 MG TABLET PO SCH ×3 (09:17→17:37)
[2018-05-29] MEDS: SIMVASTATIN 20 MG TABLET PO SCH (09:17)
[2018-05-29] MEDS: LevETIRAcetam 250 MG TABLET PO SCH ×2 (09:17→17:37)
[2018-05-29] MEDS: OXYBUTYNIN CHLORIDE 5 MG ER TABLET PO SCH (09:17)
[2018-05-29] MEDS: BENAZEPRIL HCL 5 MG TABLET PO SCH (09:17)
[2018-05-29] MEDS: ASCORBIC ACID 500 MG TABLET PO SCH (09:19)
[2018-05-29] MEDS: MULTIVITAMINS WITH MINERALS, THERAPEUTIC TABLET PO SCH (09:19)
[2018-05-29 09:32] VITALS: BP 124/89
[2018-05-29] MEDS: CHLORHEXIDINE GLUCONATE 4% 118 ML TOPICAL LIQUID TP SCH (10:55)
[2018-05-29 11:34] LABS: GLUCOMETER DEV NAME(LOC) 3EX 1; GLUCOSE,POINT OF CARE 228 MG/DL (70-110)
[2018-05-29] MEDS: IBUPROFEN 600 MG TABLET PO PRN (11:49)
[2018-05-29 16:24] VITALS: BP 117/78
[2018-05-29 16:34] LABS: GLUCOMETER DEV NAME(LOC) 3EX 1; GLUCOSE,POINT OF CARE 76 MG/DL (70-110)
[2018-05-29 21:44] LABS: GLUCOMETER DEV NAME(LOC) 3EX 1; GLUCOSE,POINT OF CARE 183 MG/DL (70-110)
[2018-05-30 06:14] LABS: GLUCOMETER DEV NAME(LOC) 3EX 1; GLUCOSE,POINT OF CARE 121 MG/DL (70-110)
[2018-05-30] MEDS: LEVOTHYROXINE SODIUM 50 MCG TABLET PO SCH (06:43)
[2018-05-30] MEDS: MetFORMIN HCL 500 MG TABLET PO SCH ×2 (06:43→16:48)
[2018-05-30] MEDS: FERROUS SULFATE 325 MG EC TABLET PO SCH ×2 (06:43→16:48)
[2018-05-30] MEDS: DIVALPROEX SODIUM 500 MG DR TABLET PO SCH ×2 (10:40→16:48)
[2018-05-30] MEDS: QUEtiapine FUMARATE 200 MG TABLET PO SCH ×2 (10:40→20:36)
[2018-05-30] MEDS: ASCORBIC ACID 500 MG TABLET PO SCH (10:40)
[2018-05-30] MEDS: OXYBUTYNIN CHLORIDE 5 MG ER TABLET PO SCH (10:41)
[2018-05-30] MEDS: CHLORHEXIDINE GLUCONATE 4% 118 ML TOPICAL LIQUID TP SCH (10:41)
[2018-05-30] MEDS: ASPIRIN 81 MG CHEWABLE TABLET PO SCH (10:41)
[2018-05-30] MEDS: LevETIRAcetam 250 MG TABLET PO SCH ×2 (10:41→16:48)
[2018-05-30] MEDS: TOPIRAMATE 100 MG TABLET PO SCH ×3 (10:41→16:48)
[2018-05-30] MEDS: MULTIVITAMINS WITH MINERALS, THERAPEUTIC TABLET PO SCH (10:41)
[2018-05-30] MEDS: LORATADINE 10 MG TABLET PO SCH (10:41)
[2018-05-30] MEDS: SIMVASTATIN 20 MG TABLET PO SCH (10:41)
[2018-05-30] MEDS: BENAZEPRIL HCL 5 MG TABLET PO SCH (10:41)
[2018-05-30 11:43] LABS: GLUCOMETER DEV NAME(LOC) 3EX 1; GLUCOSE,POINT OF CARE 144 MG/DL (70-110)
[2018-05-30] MEDS: INSULIN LISPRO 100 UNITS/ML SQ PRN ×3 (11:49→21:16)
[2018-05-30 16:50] LABS: GLUCOMETER DEV NAME(LOC) 3E.I; GLUCOSE,POINT OF CARE 165 MG/DL (70-110)
[2018-05-30 19:41] VITALS: BP 123/78
[2018-05-30 21:33] LABS: GLUCOMETER DEV NAME(LOC) 3E.I; GLUCOSE,POINT OF CARE 170 MG/DL (70-110)
[2018-05-31] MEDS: FERROUS SULFATE 325 MG EC TABLET PO SCH ×2 (07:12→16:44)
[2018-05-31] MEDS: MetFORMIN HCL 500 MG TABLET PO SCH ×2 (07:12→16:44)
[2018-05-31] MEDS: LEVOTHYROXINE SODIUM 50 MCG TABLET PO SCH (07:12)
[2018-05-31 07:16] VITALS: BP 125/73
[2018-05-31 07:29] LABS: GLUCOMETER DEV NAME(LOC) 3E.I; GLUCOSE,POINT OF CARE 131 MG/DL (70-110)
[2018-05-31] MEDS: LORATADINE 10 MG TABLET PO SCH (09:31)
[2018-05-31] MEDS: MULTIVITAMINS WITH MINERALS, THERAPEUTIC TABLET PO SCH (09:31)
[2018-05-31] MEDS: SIMVASTATIN 20 MG TABLET PO SCH (09:31)
[2018-05-31] MEDS: DIVALPROEX SODIUM 500 MG DR TABLET PO SCH ×2 (09:32→16:44)
[2018-05-31] MEDS: QUEtiapine FUMARATE 200 MG TABLET PO SCH ×2 (09:32→20:36)
[2018-05-31] MEDS: ASPIRIN 81 MG CHEWABLE TABLET PO SCH (09:32)
[2018-05-31] MEDS: LevETIRAcetam 250 MG TABLET PO SCH ×2 (09:33→16:44)
[2018-05-31] MEDS: OXYBUTYNIN CHLORIDE 5 MG ER TABLET PO SCH (09:33)
[2018-05-31] MEDS: TOPIRAMATE 100 MG TABLET PO SCH ×3 (09:33→16:44)
[2018-05-31] MEDS: ASCORBIC ACID 500 MG TABLET PO SCH (09:33)
[2018-05-31] MEDS: BENAZEPRIL HCL 5 MG TABLET PO SCH (09:33)
[2018-05-31 11:28] VITALS: BP 121/95
[2018-05-31] MEDS: CHLORHEXIDINE GLUCONATE 4% 118 ML TOPICAL LIQUID TP SCH (14:19)
[2018-05-31 17:05] LABS: GLUCOMETER DEV NAME(LOC) 3E.C; GLUCOSE,POINT OF CARE 128 MG/DL (70-110)
[2018-05-31 20:01] VITALS: BP 118/76
[2018-05-31] MEDS: INSULIN LISPRO 100 UNITS/ML SQ PRN (21:46)
[2018-05-31 21:54] LABS: GLUCOMETER DEV NAME(LOC) 3E.I; GLUCOSE,POINT OF CARE 191 MG/DL (70-110)
[2018-06-01] MEDS: LEVOTHYROXINE SODIUM 50 MCG TABLET PO SCH (06:58)
[2018-06-01] MEDS: FERROUS SULFATE 325 MG EC TABLET PO SCH ×2 (06:58→16:34)
[2018-06-01] MEDS: MetFORMIN HCL 500 MG TABLET PO SCH ×2 (06:59→16:34)
[2018-06-01 07:34] LABS: GLUCOMETER DEV NAME(LOC) 3E.I; GLUCOSE,POINT OF CARE 125 MG/DL (70-110)
[2018-06-01] MEDS: ASCORBIC ACID 500 MG TABLET PO SCH (08:13)
[2018-06-01] MEDS: OXYBUTYNIN CHLORIDE 5 MG ER TABLET PO SCH (08:13)
[2018-06-01] MEDS: TOPIRAMATE 100 MG TABLET PO SCH ×3 (08:13→16:34)
[2018-06-01] MEDS: ASPIRIN 81 MG CHEWABLE TABLET PO SCH (08:13)
[2018-06-01] MEDS: LORATADINE 10 MG TABLET PO SCH (08:13)
[2018-06-01] MEDS: LevETIRAcetam 250 MG TABLET PO SCH ×2 (08:14→16:34)
[2018-06-01] MEDS: DIVALPROEX SODIUM 500 MG DR TABLET PO SCH ×2 (08:14→16:34)
[2018-06-01] MEDS: SIMVASTATIN 20 MG TABLET PO SCH (08:15)
[2018-06-01] MEDS: QUEtiapine FUMARATE 200 MG TABLET PO SCH ×2 (08:15→20:14)
[2018-06-01] MEDS: BENAZEPRIL HCL 5 MG TABLET PO SCH (08:15)
[2018-06-01] MEDS: MULTIVITAMINS WITH MINERALS, THERAPEUTIC TABLET PO SCH (08:16)
[2018-06-01 08:30] VITALS: BP 107/74
[2018-06-01] MEDS: CHLORHEXIDINE GLUCONATE 4% 118 ML TOPICAL LIQUID TP SCH (11:15)
[2018-06-01 11:34] LABS: GLUCOMETER DEV NAME(LOC) 3E.I; GLUCOSE,POINT OF CARE 128 MG/DL (70-110)
[2018-06-01 16:00] VITALS: BP 119/77
[2018-06-01 16:19] LABS: GLUCOMETER DEV NAME(LOC) 3E.I; GLUCOSE,POINT OF CARE 129 MG/DL (70-110)
[2018-06-01] MEDS: INSULIN LISPRO 100 UNITS/ML SQ PRN (21:13)
[2018-06-01 21:23] LABS: GLUCOMETER DEV NAME(LOC) 3E.I; GLUCOSE,POINT OF CARE 150 MG/DL (70-110)
[2018-06-02] MEDS: FERROUS SULFATE 325 MG EC TABLET PO SCH ×2 (06:33→16:42)
[2018-06-02] MEDS: LEVOTHYROXINE SODIUM 50 MCG TABLET PO SCH (06:33)
[2018-06-02] MEDS: MetFORMIN HCL 500 MG TABLET PO SCH ×2 (06:33→16:42)
[2018-06-02 06:39] LABS: GLUCOMETER DEV NAME(LOC) 3E.I; GLUCOSE,POINT OF CARE 119 MG/DL (70-110)
[2018-06-02 08:00] VITALS: BP 116/66
[2018-06-02] MEDS: TOPIRAMATE 100 MG TABLET PO SCH ×3 (08:43→16:42)
[2018-06-02] MEDS: MULTIVITAMINS WITH MINERALS, THERAPEUTIC TABLET PO SCH (08:44)
[2018-06-02] MEDS: DIVALPROEX SODIUM 500 MG DR TABLET PO SCH ×2 (08:44→16:42)
[2018-06-02] MEDS: OMEPRAZOLE 20 MG CAPSULE PO PRN (08:44)
[2018-06-02] MEDS: ASCORBIC ACID 500 MG TABLET PO SCH (08:44)
[2018-06-02] MEDS: QUEtiapine FUMARATE 200 MG TABLET PO SCH ×2 (08:44→21:51)
[2018-06-02] MEDS: OXYBUTYNIN CHLORIDE 5 MG ER TABLET PO SCH (08:44)
[2018-06-02] MEDS: LevETIRAcetam 250 MG TABLET PO SCH ×2 (08:44→16:42)
[2018-06-02] MEDS: BENAZEPRIL HCL 5 MG TABLET PO SCH (08:44)
[2018-06-02] MEDS: ASPIRIN 81 MG CHEWABLE TABLET PO SCH (08:45)
[2018-06-02] MEDS: SIMVASTATIN 20 MG TABLET PO SCH (08:45)
[2018-06-02] MEDS: LORATADINE 10 MG TABLET PO SCH (08:46)
[2018-06-02] MEDS: CHLORHEXIDINE GLUCONATE 4% 118 ML TOPICAL LIQUID TP SCH (09:43)
[2018-06-02 11:34] LABS: GLUCOMETER DEV NAME(LOC) 3E.I; GLUCOSE,POINT OF CARE 118 MG/DL (70-110)
[2018-06-02 16:13] VITALS: BP 122/68
[2018-06-02 16:49] LABS: GLUCOMETER DEV NAME(LOC) 3E.I; GLUCOSE,POINT OF CARE 147 MG/DL (70-110)
[2018-06-02] MEDS: INSULIN LISPRO 100 UNITS/ML SQ PRN (17:23)
[2018-06-03 05:35] LABS: GLUCOMETER DEV NAME(LOC) 3E.I; GLUCOSE,POINT OF CARE 139 MG/DL (70-110)
[2018-06-03] MEDS: MetFORMIN HCL 500 MG TABLET PO SCH ×2 (06:43→17:02)
[2018-06-03] MEDS: FERROUS SULFATE 325 MG EC TABLET PO SCH ×2 (06:43→17:02)
[2018-06-03] MEDS: LEVOTHYROXINE SODIUM 50 MCG TABLET PO SCH (06:43)
[2018-06-03 08:03] LABS: BAND NEUTROPHILS % (MANUAL) 0 % (0-5)
[2018-06-03 08:05] VITALS: BP 113/69
[2018-06-03 08:06] LABS: HEMATOCRIT 39.8 % (36-46); HEMOGLOBIN 13.4 g/dL (12.0-16.0); MEAN CORPUSCULAR HEMOGLOBIN 33.4 pg (26.0-34.0); MEAN CORPUSCULAR HGB CONC 33.7 G/dL (31.0-37.0); MEAN CORPUSCULAR VOLUME 99 fL (80-100); PLATELET COUNT (AUTO) 177 K/uL (150-450); RED BLOOD CELL COUNT(AUTO) 4.01 MIL/uL (4.00-5.20); RED CELL DISTRIBUTION WIDTH 13.4 % (11.5-14.5)
[2018-06-03 08:53] LABS: ANION GAP 7 mmol/L (8-16); CARBON DIOXIDE 27 mmol/L (22-29); CHLORIDE 108 mmol/L (98-107); CHOL/HDL RATIO 3.5 (3.9-5.7); CHOLESTEROL 194 mg/dL (131-200); CREATININE 0.71 mg/dL (0.60-1.30); GLOMERULAR FILTR. RATE CALC > 60 mL/min (>60); GLUCOSE,RANDOM 205 mg/dL (70-110); HDL CHOLESTEROL 55 mg/dL (40-60); LDL CHOL (CALC.) 105 mg/dL (0-130); PHOSPHORUS 3.8 mg/dL (2.5-4.9); POTASSIUM 4.9 mmol/L (3.5-5.1); SODIUM SERUM 142 mmol/L (136-145); TRIGLYCERIDES 172 mg/dL (15-150); UREA NITROGEN, BLOOD 23 mg/dL (7-18)
[2018-06-03 08:54] LABS: BASOPHILS % (MANUAL) 1 % (0-2); LYMPHOCYTES % (MANUAL) 42 % (22-44); MONOCYTES % (MANUAL) 5 % (2-9); SEGMENTED NEUTROPHILS % 52 % (40-70)
[2018-06-03 09:07] LABS: HEMOGLOBIN A1C 6.2 % (4.5-6.2)
[2018-06-03 09:34] LABS: THYROID STIMULATING HORMONE 8.84 uIU/mL (0.36-3.74)
[2018-06-03] MEDS: LevETIRAcetam 250 MG TABLET PO SCH ×2 (09:46→17:02)
[2018-06-03] MEDS: TOPIRAMATE 100 MG TABLET PO SCH ×4 (09:46→17:02)
[2018-06-03] MEDS: SIMVASTATIN 20 MG TABLET PO SCH (09:46)
[2018-06-03] MEDS: QUEtiapine FUMARATE 200 MG TABLET PO SCH ×2 (09:46→20:11)
[2018-06-03] MEDS: ASCORBIC ACID 500 MG TABLET PO SCH (09:46)
[2018-06-03] MEDS: MULTIVITAMINS WITH MINERALS, THERAPEUTIC TABLET PO SCH (09:46)
[2018-06-03] MEDS: BENAZEPRIL HCL 5 MG TABLET PO SCH (09:47)
[2018-06-03] MEDS: ASPIRIN 81 MG CHEWABLE TABLET PO SCH (09:47)
[2018-06-03] MEDS: OXYBUTYNIN CHLORIDE 5 MG ER TABLET PO SCH (09:47)
[2018-06-03] MEDS: DIVALPROEX SODIUM 500 MG DR TABLET PO SCH ×2 (09:48→17:01)
[2018-06-03] MEDS: LORATADINE 10 MG TABLET PO SCH (09:48)
[2018-06-03 11:38] LABS: GLUCOMETER DEV NAME(LOC) 3E.I; GLUCOSE,POINT OF CARE 102 MG/DL (70-110)
[2018-06-03] MEDS: CHLORHEXIDINE GLUCONATE 4% 118 ML TOPICAL LIQUID TP SCH (13:20)
[2018-06-03 16:04] VITALS: BP 116/78
[2018-06-03 16:34] LABS: GLUCOMETER DEV NAME(LOC) 3E.I; GLUCOSE,POINT OF CARE 149 MG/DL (70-110)
[2018-06-03] MEDS: INSULIN LISPRO 100 UNITS/ML SQ PRN (21:33)
[2018-06-03 21:39] LABS: GLUCOMETER DEV NAME(LOC) 3E.I; GLUCOSE,POINT OF CARE 170 MG/DL (70-110)
[2018-06-04 06:04] LABS: GLUCOMETER DEV NAME(LOC) 3E.I; GLUCOSE,POINT OF CARE 93 MG/DL (70-110)
[2018-06-04] MEDS: MetFORMIN HCL 500 MG TABLET PO SCH ×2 (06:55→16:38)
[2018-06-04] MEDS: FERROUS SULFATE 325 MG EC TABLET PO SCH ×2 (06:55→16:38)
[2018-06-04] MEDS: LEVOTHYROXINE SODIUM 50 MCG TABLET PO SCH (06:56)
[2018-06-04 08:00] VITALS: BP 132/80
[2018-06-04] MEDS: CHLORHEXIDINE GLUCONATE 4% 118 ML TOPICAL LIQUID TP SCH (09:00)
[2018-06-04] MEDS: TOPIRAMATE 100 MG TABLET PO SCH ×3 (09:47→16:38)
[2018-06-04] MEDS: OXYBUTYNIN CHLORIDE 5 MG ER TABLET PO SCH (09:47)
[2018-06-04] MEDS: LevETIRAcetam 250 MG TABLET PO SCH ×2 (09:47→16:38)
[2018-06-04] MEDS: BENAZEPRIL HCL 5 MG TABLET PO SCH (09:47)
[2018-06-04] MEDS: ASCORBIC ACID 500 MG TABLET PO SCH (09:47)
[2018-06-04] MEDS: QUEtiapine FUMARATE 200 MG TABLET PO SCH ×2 (09:47→20:28)
[2018-06-04] MEDS: ASPIRIN 81 MG CHEWABLE TABLET PO SCH (09:48)
[2018-06-04] MEDS: DIVALPROEX SODIUM 500 MG DR TABLET PO SCH ×2 (09:48→16:38)
[2018-06-04] MEDS: LORATADINE 10 MG TABLET PO SCH (09:48)
[2018-06-04] MEDS: SIMVASTATIN 20 MG TABLET PO SCH (09:48)
[2018-06-04] MEDS: MULTIVITAMINS WITH MINERALS, THERAPEUTIC TABLET PO SCH (09:48)
[2018-06-04 11:50] LABS: GLUCOMETER DEV NAME(LOC) 3E.I; GLUCOSE,POINT OF CARE 191 MG/DL (70-110)
[2018-06-04] MEDS: INSULIN LISPRO 100 UNITS/ML SQ PRN ×2 (14:51→20:27)
[2018-06-04 17:24] LABS: GLUCOMETER DEV NAME(LOC) 3E.I; GLUCOSE,POINT OF CARE 127 MG/DL (70-110)
[2018-06-04 17:49] VITALS: BP 128/72
[2018-06-04 20:54] LABS: GLUCOMETER DEV NAME(LOC) 3E.I; GLUCOSE,POINT OF CARE 162 MG/DL (70-110)
[2018-06-05 06:13] LABS: GLUCOMETER DEV NAME(LOC) 3E.I; GLUCOSE,POINT OF CARE 111 MG/DL (70-110)
[2018-06-05] MEDS: MetFORMIN HCL 500 MG TABLET PO SCH ×2 (06:39→16:08)
[2018-06-05] MEDS: LEVOTHYROXINE SODIUM 50 MCG TABLET PO SCH (06:39)
[2018-06-05] MEDS: FERROUS SULFATE 325 MG EC TABLET PO SCH ×2 (06:39→16:08)
[2018-06-05] MEDS: BENAZEPRIL HCL 5 MG TABLET PO SCH (08:19)
[2018-06-05] MEDS: QUEtiapine FUMARATE 200 MG TABLET PO SCH ×2 (08:19→20:11)
[2018-06-05] MEDS: DIVALPROEX SODIUM 500 MG DR TABLET PO SCH ×2 (08:19→16:08)
[2018-06-05] MEDS: LORATADINE 10 MG TABLET PO SCH (08:20)
[2018-06-05] MEDS: LevETIRAcetam 250 MG TABLET PO SCH ×2 (08:20→16:08)
[2018-06-05] MEDS: ASPIRIN 81 MG CHEWABLE TABLET PO SCH (08:20)
[2018-06-05] MEDS: TOPIRAMATE 100 MG TABLET PO SCH ×3 (08:20→16:08)
[2018-06-05] MEDS: ASCORBIC ACID 500 MG TABLET PO SCH (08:20)
[2018-06-05] MEDS: OXYBUTYNIN CHLORIDE 5 MG ER TABLET PO SCH (08:20)
[2018-06-05] MEDS: MULTIVITAMINS WITH MINERALS, THERAPEUTIC TABLET PO SCH (08:20)
[2018-06-05] MEDS: SIMVASTATIN 20 MG TABLET PO SCH (08:20)
[2018-06-05 08:49] VITALS: BP 128/71
[2018-06-05 11:43] LABS: GLUCOMETER DEV NAME(LOC) 3E.I; GLUCOSE,POINT OF CARE 135 MG/DL (70-110)
[2018-06-05] MEDS: CHLORHEXIDINE GLUCONATE 4% 118 ML TOPICAL LIQUID TP SCH (13:05)
[2018-06-05] MEDS: INSULIN LISPRO 100 UNITS/ML SQ PRN (13:06)
[2018-06-05 16:03] VITALS: BP 119/76
[2018-06-05 17:04] LABS: GLUCOMETER DEV NAME(LOC) 3E.I; GLUCOSE,POINT OF CARE 111 MG/DL (70-110)
[2018-06-05 20:59] LABS: GLUCOMETER DEV NAME(LOC) 3E.I; GLUCOSE,POINT OF CARE 135 MG/DL (70-110)
[2018-06-06 06:04] LABS: GLUCOMETER DEV NAME(LOC) 3E.I; GLUCOSE,POINT OF CARE 99 MG/DL (70-110)
[2018-06-06] MEDS: LEVOTHYROXINE SODIUM 50 MCG TABLET PO SCH (06:44)
[2018-06-06] MEDS: MetFORMIN HCL 500 MG TABLET PO SCH ×2 (06:44→16:39)
[2018-06-06] MEDS: FERROUS SULFATE 325 MG EC TABLET PO SCH ×2 (06:44→08:18)
[2018-06-06] MEDS: SIMVASTATIN 20 MG TABLET PO SCH (08:16)
[2018-06-06] MEDS: LORATADINE 10 MG TABLET PO SCH (08:17)
[2018-06-06] MEDS: DIVALPROEX SODIUM 500 MG DR TABLET PO SCH ×2 (08:17→16:06)
[2018-06-06] MEDS: QUEtiapine FUMARATE 200 MG TABLET PO SCH ×2 (08:17→20:06)
[2018-06-06] MEDS: MULTIVITAMINS WITH MINERALS, THERAPEUTIC TABLET PO SCH (08:17)
[2018-06-06] MEDS: ASCORBIC ACID 500 MG TABLET PO SCH (08:17)
[2018-06-06] MEDS: ASPIRIN 81 MG CHEWABLE TABLET PO SCH (08:17)
[2018-06-06] MEDS: TOPIRAMATE 100 MG TABLET PO SCH ×3 (08:17→16:06)
[2018-06-06] MEDS: LevETIRAcetam 250 MG TABLET PO SCH ×2 (08:18→16:06)
[2018-06-06] MEDS: BENAZEPRIL HCL 5 MG TABLET PO SCH (08:18)
[2018-06-06] MEDS: OXYBUTYNIN CHLORIDE 5 MG ER TABLET PO SCH (08:18)
[2018-06-06] MEDS: OMEPRAZOLE 20 MG CAPSULE PO PRN (08:18)
[2018-06-06] MEDS: CHLORHEXIDINE GLUCONATE 4% 118 ML TOPICAL LIQUID TP SCH (08:18)
[2018-06-06 09:10] VITALS: BP 135/77
[2018-06-06 16:14] LABS: GLUCOMETER DEV NAME(LOC) 3E.I; GLUCOSE,POINT OF CARE 135 MG/DL (70-110)
[2018-06-06 16:15] VITALS: BP 124/81
[2018-06-06] MEDS: INSULIN LISPRO 100 UNITS/ML SQ PRN (22:07)
[2018-06-06 22:08] LABS: GLUCOMETER DEV NAME(LOC) 3E.I; GLUCOSE,POINT OF CARE 162 MG/DL (70-110)
[2018-06-07] MEDS: LEVOTHYROXINE SODIUM 50 MCG TABLET PO SCH ×2 (07:00→07:02)
[2018-06-07] MEDS: FERROUS SULFATE 325 MG EC TABLET PO SCH ×3 (07:02→17:30)
[2018-06-07] MEDS: MetFORMIN HCL 500 MG TABLET PO SCH ×3 (07:03→17:30)
[2018-06-07] MEDS ORDERED: DiphenhydrAMINE HCL 50 MG/ML VIAL IM ONE (08:15)
[2018-06-07] MEDS ORDERED: HALOPERIDOL LACTATE 5 MG/ML VIAL IM ONE (08:15)
[2018-06-07] MEDS ORDERED: LORazepam 2 MG/ML VIAL IM ONE (08:15)
[2018-06-07] MEDS: BENAZEPRIL HCL 5 MG TABLET PO SCH (09:00)
[2018-06-07] MEDS: ASCORBIC ACID 500 MG TABLET PO SCH (09:00)
[2018-06-07] MEDS: OXYBUTYNIN CHLORIDE 5 MG ER TABLET PO SCH (09:00)
[2018-06-07] MEDS: DIVALPROEX SODIUM 500 MG DR TABLET PO SCH ×2 (09:00→17:30)
[2018-06-07] MEDS: LevETIRAcetam 250 MG TABLET PO SCH ×2 (09:00→17:31)
[2018-06-07] MEDS: SIMVASTATIN 20 MG TABLET PO SCH (09:00)
[2018-06-07] MEDS: LORATADINE 10 MG TABLET PO SCH (09:00)
[2018-06-07] MEDS: TOPIRAMATE 100 MG TABLET PO SCH ×3 (09:00→17:30)
[2018-06-07] MEDS: ASPIRIN 81 MG CHEWABLE TABLET PO SCH (09:00)
[2018-06-07] MEDS: CHLORHEXIDINE GLUCONATE 4% 118 ML TOPICAL LIQUID TP SCH (09:00)
[2018-06-07] MEDS: QUEtiapine FUMARATE 200 MG TABLET PO SCH ×2 (09:00→20:43)
[2018-06-07] MEDS: MULTIVITAMINS WITH MINERALS, THERAPEUTIC TABLET PO SCH (09:00)
[2018-06-07 11:40] LABS: GLUCOMETER DEV NAME(LOC) 3E.I; GLUCOSE,POINT OF CARE 153 MG/DL (70-110)
[2018-06-07] MEDS: INSULIN LISPRO 100 UNITS/ML SQ PRN ×2 (12:10→17:45)
[2018-06-07 18:20] LABS: GLUCOMETER DEV NAME(LOC) 3E.I; GLUCOSE,POINT OF CARE 212 MG/DL (70-110)
[2018-06-07 19:35] VITALS: BP 129/78
[2018-06-07 21:53] LABS: GLUCOMETER DEV NAME(LOC) 3E.I; GLUCOSE,POINT OF CARE 91 MG/DL (70-110)
[2018-06-08 05:54] LABS: GLUCOMETER DEV NAME(LOC) 3E.I; GLUCOSE,POINT OF CARE 250 MG/DL (70-110)
[2018-06-08] MEDS: FERROUS SULFATE 325 MG EC TABLET PO SCH ×2 (06:58→17:06)
[2018-06-08] MEDS: INSULIN LISPRO 100 UNITS/ML SQ PRN ×2 (06:58→17:47)
[2018-06-08] MEDS: LEVOTHYROXINE SODIUM 50 MCG TABLET PO SCH (06:58)
[2018-06-08] MEDS: MetFORMIN HCL 500 MG TABLET PO SCH ×2 (06:59→17:06)
[2018-06-08 08:00] VITALS: BP 125/86
[2018-06-08] MEDS: LORATADINE 10 MG TABLET PO SCH (08:58)
[2018-06-08] MEDS: DIVALPROEX SODIUM 500 MG DR TABLET PO SCH ×2 (08:58→17:06)
[2018-06-08] MEDS: OXYBUTYNIN CHLORIDE 5 MG ER TABLET PO SCH (08:58)
[2018-06-08] MEDS: MULTIVITAMINS WITH MINERALS, THERAPEUTIC TABLET PO SCH (08:58)
[2018-06-08] MEDS: CHLORHEXIDINE GLUCONATE 4% 118 ML TOPICAL LIQUID TP SCH (08:58)
[2018-06-08] MEDS: SIMVASTATIN 20 MG TABLET PO SCH (08:58)
[2018-06-08] MEDS: BENAZEPRIL HCL 5 MG TABLET PO SCH (08:58)
[2018-06-08] MEDS: LevETIRAcetam 250 MG TABLET PO SCH ×2 (08:58→17:06)
[2018-06-08] MEDS: TOPIRAMATE 100 MG TABLET PO SCH ×3 (08:58→17:06)
[2018-06-08] MEDS: ASPIRIN 81 MG CHEWABLE TABLET PO SCH (08:58)
[2018-06-08] MEDS: QUEtiapine FUMARATE 200 MG TABLET PO SCH ×2 (08:58→20:55)
[2018-06-08] MEDS: ASCORBIC ACID 500 MG TABLET PO SCH (08:58)
[2018-06-08 11:50] LABS: GLUCOMETER DEV NAME(LOC) 3E.I; GLUCOSE,POINT OF CARE 142 MG/DL (70-110)
[2018-06-08 17:37] VITALS: BP 129/79
[2018-06-08 17:49] LABS: GLUCOMETER DEV NAME(LOC) 3E.I; GLUCOSE,POINT OF CARE 150 MG/DL (70-110)
[2018-06-09 05:39] LABS: GLUCOMETER DEV NAME(LOC) 3E.I; GLUCOSE,POINT OF CARE 135 MG/DL (70-110)
[2018-06-09] MEDS: FERROUS SULFATE 325 MG EC TABLET PO SCH ×2 (06:39→18:04)
[2018-06-09] MEDS: MetFORMIN HCL 500 MG TABLET PO SCH ×2 (06:39→18:04)
[2018-06-09] MEDS: LEVOTHYROXINE SODIUM 50 MCG TABLET PO SCH (06:39)
[2018-06-09] MEDS: LORATADINE 10 MG TABLET PO SCH (08:01)
[2018-06-09] MEDS: QUEtiapine FUMARATE 200 MG TABLET PO SCH ×2 (08:01→20:45)
[2018-06-09] MEDS: TOPIRAMATE 100 MG TABLET PO SCH ×3 (08:02→18:00)
[2018-06-09] MEDS: LevETIRAcetam 250 MG TABLET PO SCH ×2 (08:02→18:00)
[2018-06-09] MEDS: ASPIRIN 81 MG CHEWABLE TABLET PO SCH (08:02)
[2018-06-09] MEDS: SIMVASTATIN 20 MG TABLET PO SCH (08:02)
[2018-06-09] MEDS: DIVALPROEX SODIUM 500 MG DR TABLET PO SCH ×2 (08:02→18:00)
[2018-06-09] MEDS: MULTIVITAMINS WITH MINERALS, THERAPEUTIC TABLET PO SCH (08:02)
[2018-06-09] MEDS: OXYBUTYNIN CHLORIDE 5 MG ER TABLET PO SCH (08:03)
[2018-06-09] MEDS: ASCORBIC ACID 500 MG TABLET PO SCH (08:03)
[2018-06-09] MEDS: BENAZEPRIL HCL 5 MG TABLET PO SCH (08:03)
[2018-06-09] MEDS: CHLORHEXIDINE GLUCONATE 4% 118 ML TOPICAL LIQUID TP SCH (08:51)
[2018-06-09 11:13] LABS: GLUCOMETER DEV NAME(LOC) 3E.I; GLUCOSE,POINT OF CARE 137 MG/DL (70-110)
[2018-06-09 16:13] VITALS: BP 123/78
[2018-06-09 17:24] LABS: GLUCOMETER DEV NAME(LOC) 3E.I; GLUCOSE,POINT OF CARE 176 MG/DL (70-110)
[2018-06-09] MEDS: INSULIN LISPRO 100 UNITS/ML SQ PRN (17:30)
[2018-06-09 21:24] LABS: GLUCOMETER DEV NAME(LOC) 3E.I; GLUCOSE,POINT OF CARE 108 MG/DL (70-110)
[2018-06-10] MEDS: MetFORMIN HCL 500 MG TABLET PO SCH ×2 (06:56→17:07)
[2018-06-10] MEDS: LEVOTHYROXINE SODIUM 50 MCG TABLET PO SCH (06:56)
[2018-06-10] MEDS: FERROUS SULFATE 325 MG EC TABLET PO SCH ×2 (06:56→17:07)
[2018-06-10] MEDS: ASPIRIN 81 MG CHEWABLE TABLET PO SCH (08:02)
[2018-06-10] MEDS: LORATADINE 10 MG TABLET PO SCH (08:02)
[2018-06-10] MEDS: MULTIVITAMINS WITH MINERALS, THERAPEUTIC TABLET PO SCH (08:03)
[2018-06-10] MEDS: HALOPERIDOL 5 MG TABLET PO PRN (08:03)
[2018-06-10] MEDS: TOPIRAMATE 100 MG TABLET PO SCH ×3 (08:03→16:09)
[2018-06-10] MEDS: DIVALPROEX SODIUM 500 MG DR TABLET PO SCH ×2 (08:03→16:09)
[2018-06-10] MEDS: DOCUSATE SODIUM 100 MG CAPSULE PO PRN (08:03)
[2018-06-10] MEDS: LevETIRAcetam 250 MG TABLET PO SCH ×2 (08:03→16:09)
[2018-06-10] MEDS: QUEtiapine FUMARATE 200 MG TABLET PO SCH ×2 (08:03→20:50)
[2018-06-10] MEDS: ASCORBIC ACID 500 MG TABLET PO SCH (08:04)
[2018-06-10] MEDS: OXYBUTYNIN CHLORIDE 5 MG ER TABLET PO SCH (08:04)
[2018-06-10] MEDS: SIMVASTATIN 20 MG TABLET PO SCH (08:05)
[2018-06-10 09:52] VITALS: BP 94/50
[2018-06-10 10:45] VITALS: BP 113/70
[2018-06-10] MEDS: CHLORHEXIDINE GLUCONATE 4% 118 ML TOPICAL LIQUID TP SCH (10:46)
[2018-06-10] MEDS: BENAZEPRIL HCL 5 MG TABLET PO SCH (10:46)
[2018-06-10] MEDS: INSULIN LISPRO 100 UNITS/ML SQ PRN (17:02)
[2018-06-10 17:16] VITALS: BP 119/81
[2018-06-10 20:58] LABS: GLUCOMETER DEV NAME(LOC) 3E.I; GLUCOSE,POINT OF CARE 150 MG/DL (70-110)
[2018-06-11 05:59] LABS: GLUCOMETER DEV NAME(LOC) 3E.I; GLUCOSE,POINT OF CARE 110 MG/DL (70-110)
[2018-06-11] MEDS: MetFORMIN HCL 500 MG TABLET PO SCH ×2 (06:35→16:32)
[2018-06-11] MEDS: LEVOTHYROXINE SODIUM 50 MCG TABLET PO SCH (06:35)
[2018-06-11] MEDS: FERROUS SULFATE 325 MG EC TABLET PO SCH ×2 (06:35→16:32)
[2018-06-11 08:15] VITALS: BP 125/68
[2018-06-11] MEDS: QUEtiapine FUMARATE 200 MG TABLET PO SCH ×2 (08:52→20:43)
[2018-06-11] MEDS: BENAZEPRIL HCL 5 MG TABLET PO SCH (08:52)
[2018-06-11] MEDS: LORATADINE 10 MG TABLET PO SCH (08:52)
[2018-06-11] MEDS: ASCORBIC ACID 500 MG TABLET PO SCH (08:52)
[2018-06-11] MEDS: MULTIVITAMINS WITH MINERALS, THERAPEUTIC TABLET PO SCH (08:52)
[2018-06-11] MEDS: LevETIRAcetam 250 MG TABLET PO SCH ×2 (08:53→16:32)
[2018-06-11] MEDS: HALOPERIDOL 5 MG TABLET PO PRN (08:53)
[2018-06-11] MEDS: ASPIRIN 81 MG CHEWABLE TABLET PO SCH (08:53)
[2018-06-11] MEDS: DIVALPROEX SODIUM 500 MG DR TABLET PO SCH ×2 (08:53→16:31)
[2018-06-11] MEDS: OXYBUTYNIN CHLORIDE 5 MG ER TABLET PO SCH (08:53)
[2018-06-11] MEDS: TOPIRAMATE 100 MG TABLET PO SCH ×3 (08:53→16:32)
[2018-06-11] MEDS: SIMVASTATIN 20 MG TABLET PO SCH (08:53)
[2018-06-11] MEDS: CHLORHEXIDINE GLUCONATE 4% 118 ML TOPICAL LIQUID TP SCH (08:53)
[2018-06-11 11:54] LABS: GLUCOMETER DEV NAME(LOC) 3E.I; GLUCOSE,POINT OF CARE 198 MG/DL (70-110)
[2018-06-11] MEDS: INSULIN LISPRO 100 UNITS/ML SQ PRN ×3 (13:28→21:25)
[2018-06-11 16:34] LABS: GLUCOMETER DEV NAME(LOC) 3E.I; GLUCOSE,POINT OF CARE 188 MG/DL (70-110)
[2018-06-11 21:01] VITALS: BP 122/71
[2018-06-11 21:24] LABS: GLUCOMETER DEV NAME(LOC) 3E.I; GLUCOSE,POINT OF CARE 202 MG/DL (70-110)
[2018-06-12 05:43] LABS: GLUCOMETER DEV NAME(LOC) 3E.I; GLUCOSE,POINT OF CARE 209 MG/DL (70-110)
[2018-06-12] MEDS: INSULIN LISPRO 100 UNITS/ML SQ PRN ×4 (06:33→21:08)
[2018-06-12] MEDS: MetFORMIN HCL 500 MG TABLET PO SCH ×2 (06:33→17:01)
[2018-06-12] MEDS: LEVOTHYROXINE SODIUM 50 MCG TABLET PO SCH (06:33)
[2018-06-12] MEDS: FERROUS SULFATE 325 MG EC TABLET PO SCH ×2 (06:34→17:01)
[2018-06-12] MEDS: LevETIRAcetam 250 MG TABLET PO SCH ×2 (08:31→17:01)
[2018-06-12] MEDS: MULTIVITAMINS WITH MINERALS, THERAPEUTIC TABLET PO SCH (08:31)
[2018-06-12] MEDS: HALOPERIDOL 5 MG TABLET PO PRN (08:31)
[2018-06-12] MEDS: TOPIRAMATE 100 MG TABLET PO SCH ×3 (08:31→17:01)
[2018-06-12] MEDS: OXYBUTYNIN CHLORIDE 5 MG ER TABLET PO SCH (08:31)
[2018-06-12] MEDS: ASCORBIC ACID 500 MG TABLET PO SCH (08:31)
[2018-06-12] MEDS: DIVALPROEX SODIUM 500 MG DR TABLET PO SCH ×2 (08:32→17:01)
[2018-06-12] MEDS: ASPIRIN 81 MG CHEWABLE TABLET PO SCH (08:32)
[2018-06-12] MEDS: SIMVASTATIN 20 MG TABLET PO SCH (08:32)
[2018-06-12] MEDS: QUEtiapine FUMARATE 200 MG TABLET PO SCH ×2 (08:32→20:30)
[2018-06-12] MEDS: BENAZEPRIL HCL 5 MG TABLET PO SCH (08:33)
[2018-06-12] MEDS: LORATADINE 10 MG TABLET PO SCH (08:33)
[2018-06-12] MEDS: CHLORHEXIDINE GLUCONATE 4% 118 ML TOPICAL LIQUID TP SCH (08:33)
[2018-06-12 09:12] VITALS: BP 121/105
[2018-06-12 11:44] LABS: GLUCOMETER DEV NAME(LOC) 3E.I; GLUCOSE,POINT OF CARE 199 MG/DL (70-110)
[2018-06-12 16:50] VITALS: BP 117/93
[2018-06-12 17:39] LABS: GLUCOMETER DEV NAME(LOC) 3E.I; GLUCOSE,POINT OF CARE 158 MG/DL (70-110)
[2018-06-12 21:14] LABS: GLUCOMETER DEV NAME(LOC) 3E.I; GLUCOSE,POINT OF CARE 186 MG/DL (70-110)
[2018-06-13] MEDS: LEVOTHYROXINE SODIUM 50 MCG TABLET PO SCH (06:34)
[2018-06-13] MEDS: MetFORMIN HCL 500 MG TABLET PO SCH ×2 (06:34→16:21)
[2018-06-13] MEDS: FERROUS SULFATE 325 MG EC TABLET PO SCH ×2 (06:34→16:21)
[2018-06-13] MEDS: MULTIVITAMINS WITH MINERALS, THERAPEUTIC TABLET PO SCH (08:10)
[2018-06-13] MEDS: BENAZEPRIL HCL 5 MG TABLET PO SCH (08:10)
[2018-06-13] MEDS: QUEtiapine FUMARATE 200 MG TABLET PO SCH ×2 (08:10→20:55)
[2018-06-13] MEDS: ASCORBIC ACID 500 MG TABLET PO SCH (08:10)
[2018-06-13] MEDS: OXYBUTYNIN CHLORIDE 5 MG ER TABLET PO SCH (08:10)
[2018-06-13] MEDS: TOPIRAMATE 100 MG TABLET PO SCH ×3 (08:10→16:20)
[2018-06-13] MEDS: SIMVASTATIN 20 MG TABLET PO SCH (08:10)
[2018-06-13] MEDS: LevETIRAcetam 250 MG TABLET PO SCH ×2 (08:10→16:21)
[2018-06-13] MEDS: DIVALPROEX SODIUM 500 MG DR TABLET PO SCH ×2 (08:10→16:21)
[2018-06-13] MEDS: ASPIRIN 81 MG CHEWABLE TABLET PO SCH (08:11)
[2018-06-13] MEDS: HALOPERIDOL 5 MG TABLET PO PRN (08:11)
[2018-06-13] MEDS: LORATADINE 10 MG TABLET PO SCH (08:11)
[2018-06-13] MEDS: CHLORHEXIDINE GLUCONATE 4% 118 ML TOPICAL LIQUID TP SCH (08:27)
[2018-06-13 08:30] VITALS: BP 110/64
[2018-06-13 11:55] LABS: GLUCOMETER DEV NAME(LOC) 3E.I; GLUCOSE,POINT OF CARE 191 MG/DL (70-110)
[2018-06-13] MEDS: INSULIN LISPRO 100 UNITS/ML SQ PRN ×2 (17:04→20:57)
[2018-06-13 17:09] LABS: GLUCOMETER DEV NAME(LOC) 3E.I; GLUCOSE,POINT OF CARE 182 MG/DL (70-110)
[2018-06-13 21:04] LABS: GLUCOMETER DEV NAME(LOC) 3E.I; GLUCOSE,POINT OF CARE 227 MG/DL (70-110)
[2018-06-14 05:59] LABS: GLUCOMETER DEV NAME(LOC) 3E.I; GLUCOSE,POINT OF CARE 201 MG/DL (70-110)
[2018-06-14] MEDS: MetFORMIN HCL 500 MG TABLET PO SCH ×2 (06:30→17:11)
[2018-06-14] MEDS: INSULIN LISPRO 100 UNITS/ML SQ PRN ×4 (06:30→20:54)
[2018-06-14] MEDS: FERROUS SULFATE 325 MG EC TABLET PO SCH ×2 (06:30→17:11)
[2018-06-14] MEDS: LEVOTHYROXINE SODIUM 50 MCG TABLET PO SCH (06:30)
[2018-06-14 08:12] VITALS: BP 144/67
[2018-06-14] MEDS: OXYBUTYNIN CHLORIDE 5 MG ER TABLET PO SCH (08:20)
[2018-06-14] MEDS: DIVALPROEX SODIUM 500 MG DR TABLET PO SCH ×2 (08:20→17:11)
[2018-06-14] MEDS: SIMVASTATIN 20 MG TABLET PO SCH (08:20)
[2018-06-14] MEDS: TOPIRAMATE 100 MG TABLET PO SCH ×3 (08:20→17:11)
[2018-06-14] MEDS: LevETIRAcetam 250 MG TABLET PO SCH ×2 (08:20→17:11)
[2018-06-14] MEDS: QUEtiapine FUMARATE 200 MG TABLET PO SCH ×2 (08:20→20:40)
[2018-06-14] MEDS: LORATADINE 10 MG TABLET PO SCH (08:20)
[2018-06-14] MEDS: BENAZEPRIL HCL 5 MG TABLET PO SCH (08:20)
[2018-06-14] MEDS: MULTIVITAMINS WITH MINERALS, THERAPEUTIC TABLET PO SCH (08:20)
[2018-06-14] MEDS: ASCORBIC ACID 500 MG TABLET PO SCH (08:20)
[2018-06-14] MEDS: ASPIRIN 81 MG CHEWABLE TABLET PO SCH (08:21)
[2018-06-14] MEDS: CHLORHEXIDINE GLUCONATE 4% 118 ML TOPICAL LIQUID TP SCH (09:39)
[2018-06-14 11:29] LABS: GLUCOMETER DEV NAME(LOC) 3E.I; GLUCOSE,POINT OF CARE 185 MG/DL (70-110)
[2018-06-14 17:34] LABS: GLUCOMETER DEV NAME(LOC) 3E.I; GLUCOSE,POINT OF CARE 150 MG/DL (70-110)
[2018-06-14 21:09] LABS: GLUCOMETER DEV NAME(LOC) 3E.I; GLUCOSE,POINT OF CARE 206 MG/DL (70-110)
[2018-06-15 06:14] LABS: GLUCOMETER DEV NAME(LOC) 3E.I; GLUCOSE,POINT OF CARE 189 MG/DL (70-110)
[2018-06-15] MEDS: FERROUS SULFATE 325 MG EC TABLET PO SCH ×2 (06:49→17:44)
[2018-06-15] MEDS: MetFORMIN HCL 500 MG TABLET PO SCH ×2 (06:49→17:44)
[2018-06-15] MEDS: LEVOTHYROXINE SODIUM 50 MCG TABLET PO SCH (06:49)
[2018-06-15] MEDS: INSULIN LISPRO 100 UNITS/ML SQ PRN ×4 (07:04→20:28)
[2018-06-15] MEDS: BENAZEPRIL HCL 5 MG TABLET PO SCH (07:55)
[2018-06-15] MEDS: ASPIRIN 81 MG CHEWABLE TABLET PO SCH (07:55)
[2018-06-15] MEDS: QUEtiapine FUMARATE 200 MG TABLET PO SCH ×2 (07:55→20:27)
[2018-06-15] MEDS: MULTIVITAMINS WITH MINERALS, THERAPEUTIC TABLET PO SCH (07:55)
[2018-06-15] MEDS: LORATADINE 10 MG TABLET PO SCH (07:55)
[2018-06-15] MEDS: TOPIRAMATE 100 MG TABLET PO SCH ×3 (07:55→17:44)
[2018-06-15] MEDS: LevETIRAcetam 250 MG TABLET PO SCH ×2 (07:55→17:44)
[2018-06-15] MEDS: OXYBUTYNIN CHLORIDE 5 MG ER TABLET PO SCH (07:55)
[2018-06-15] MEDS: DIVALPROEX SODIUM 500 MG DR TABLET PO SCH ×2 (07:55→17:44)
[2018-06-15] MEDS: SIMVASTATIN 20 MG TABLET PO SCH (07:55)
[2018-06-15] MEDS: ASCORBIC ACID 500 MG TABLET PO SCH (07:55)
[2018-06-15] MEDS: HALOPERIDOL 5 MG TABLET PO PRN (07:56)
[2018-06-15 08:00] VITALS: BP 127/80
[2018-06-15] MEDS: CHLORHEXIDINE GLUCONATE 4% 118 ML TOPICAL LIQUID TP SCH (08:46)
[2018-06-15 10:17] LABS: HIV 1-2 SCREEN 4TH GEN W/RFLX Non Reactive (Non Reactive)
[2018-06-15 11:44] LABS: GLUCOMETER DEV NAME(LOC) 3E.I; GLUCOSE,POINT OF CARE 190 MG/DL (70-110)
[2018-06-15 16:13] VITALS: BP 122/71
[2018-06-15 17:38] LABS: GLUCOMETER DEV NAME(LOC) 3E.I; GLUCOSE,POINT OF CARE 144 MG/DL (70-110)
[2018-06-15 20:34] LABS: GLUCOMETER DEV NAME(LOC) 3E.I; GLUCOSE,POINT OF CARE 246 MG/DL (70-110)
[2018-06-16] MEDS: MetFORMIN HCL 500 MG TABLET PO SCH ×2 (06:55→17:10)
[2018-06-16] MEDS: FERROUS SULFATE 325 MG EC TABLET PO SCH ×2 (06:55→17:10)
[2018-06-16] MEDS: LEVOTHYROXINE SODIUM 50 MCG TABLET PO SCH (06:55)
[2018-06-16] MEDS: INSULIN LISPRO 100 UNITS/ML SQ PRN ×3 (07:15→20:01)
[2018-06-16] MEDS: HALOPERIDOL 5 MG TABLET PO PRN ×2 (08:17→17:12)
[2018-06-16] MEDS: DIVALPROEX SODIUM 500 MG DR TABLET PO SCH ×2 (08:17→17:10)
[2018-06-16] MEDS: QUEtiapine FUMARATE 200 MG TABLET PO SCH ×2 (08:17→19:59)
[2018-06-16] MEDS: LORATADINE 10 MG TABLET PO SCH (08:17)
[2018-06-16] MEDS: MULTIVITAMINS WITH MINERALS, THERAPEUTIC TABLET PO SCH (08:17)
[2018-06-16] MEDS: BENAZEPRIL HCL 5 MG TABLET PO SCH (08:18)
[2018-06-16] MEDS: TOPIRAMATE 100 MG TABLET PO SCH ×3 (08:18→17:10)
[2018-06-16] MEDS: LevETIRAcetam 250 MG TABLET PO SCH ×2 (08:18→17:10)
[2018-06-16] MEDS: ASPIRIN 81 MG CHEWABLE TABLET PO SCH (08:18)
[2018-06-16] MEDS: OXYBUTYNIN CHLORIDE 5 MG ER TABLET PO SCH (08:18)
[2018-06-16] MEDS: ASCORBIC ACID 500 MG TABLET PO SCH (08:20)
[2018-06-16] MEDS: SIMVASTATIN 20 MG TABLET PO SCH (08:20)
[2018-06-16] MEDS: CHLORHEXIDINE GLUCONATE 4% 118 ML TOPICAL LIQUID TP SCH (08:21)
[2018-06-16 08:51] VITALS: BP 116/69
[2018-06-16 17:15] VITALS: BP 101/61
[2018-06-16 20:04] LABS: GLUCOMETER DEV NAME(LOC) 3EX.; GLUCOSE,POINT OF CARE 206 MG/DL (70-110)
[2018-06-17 05:19] LABS: GLUCOMETER DEV NAME(LOC) 3E.I; GLUCOSE,POINT OF CARE 180 MG/DL (70-110)
[2018-06-17 05:39] LABS: GLUCOMETER DEV NAME(LOC) 3EX.; GLUCOSE,POINT OF CARE 179 MG/DL (70-110)
[2018-06-17] MEDS: INSULIN LISPRO 100 UNITS/ML SQ PRN ×2 (06:41→12:05)
[2018-06-17] MEDS: LEVOTHYROXINE SODIUM 50 MCG TABLET PO SCH (06:49)
[2018-06-17] MEDS: MetFORMIN HCL 500 MG TABLET PO SCH ×2 (06:49→17:06)
[2018-06-17] MEDS: FERROUS SULFATE 325 MG EC TABLET PO SCH ×2 (06:49→17:06)
[2018-06-17] MEDS: SIMVASTATIN 20 MG TABLET PO SCH (07:49)
[2018-06-17] MEDS: MULTIVITAMINS WITH MINERALS, THERAPEUTIC TABLET PO SCH (07:49)
[2018-06-17] MEDS: QUEtiapine FUMARATE 200 MG TABLET PO SCH ×2 (07:49→20:11)
[2018-06-17] MEDS: DIVALPROEX SODIUM 500 MG DR TABLET PO SCH ×2 (07:49→16:11)
[2018-06-17] MEDS: OXYBUTYNIN CHLORIDE 5 MG ER TABLET PO SCH (07:50)
[2018-06-17] MEDS: ASPIRIN 81 MG CHEWABLE TABLET PO SCH (07:50)
[2018-06-17] MEDS: HALOPERIDOL 5 MG TABLET PO PRN ×2 (07:50→22:20)
[2018-06-17] MEDS: TOPIRAMATE 100 MG TABLET PO SCH ×3 (07:50→16:11)
[2018-06-17] MEDS: LevETIRAcetam 250 MG TABLET PO SCH ×2 (07:50→16:11)
[2018-06-17] MEDS: ASCORBIC ACID 500 MG TABLET PO SCH (07:50)
[2018-06-17] MEDS: LORATADINE 10 MG TABLET PO SCH (07:50)
[2018-06-17] MEDS: BENAZEPRIL HCL 5 MG TABLET PO SCH (08:51)
[2018-06-17] MEDS: CHLORHEXIDINE GLUCONATE 4% 118 ML TOPICAL LIQUID TP SCH ×2 (08:51→09:00)
[2018-06-17 10:56] VITALS: BP 140/79
[2018-06-17 11:50] LABS: GLUCOMETER DEV NAME(LOC) 3EX.; GLUCOSE,POINT OF CARE 179 MG/DL (70-110)
[2018-06-17] MEDS: IBUPROFEN 600 MG TABLET PO PRN (18:44)
[2018-06-17 18:47] VITALS: BP 111/77
[2018-06-18 05:34] LABS: GLUCOMETER DEV NAME(LOC) 3EX.; GLUCOSE,POINT OF CARE 204 MG/DL (70-110)
[2018-06-18 06:30] VITALS: BP 110/79
[2018-06-18] MEDS: LEVOTHYROXINE SODIUM 50 MCG TABLET PO SCH (06:54)
[2018-06-18] MEDS: MetFORMIN HCL 500 MG TABLET PO SCH ×2 (06:58→16:41)
[2018-06-18] MEDS: FERROUS SULFATE 325 MG EC TABLET PO SCH ×2 (06:58→16:41)
[2018-06-18] MEDS: INSULIN LISPRO 100 UNITS/ML SQ PRN ×3 (07:02→17:18)
[2018-06-18 08:00] VITALS: BP 117/70
[2018-06-18] MEDS: DIVALPROEX SODIUM 500 MG DR TABLET PO SCH ×2 (08:21→16:41)
[2018-06-18] MEDS: SIMVASTATIN 20 MG TABLET PO SCH (08:21)
[2018-06-18] MEDS: ASPIRIN 81 MG CHEWABLE TABLET PO SCH (08:21)
[2018-06-18] MEDS: LORATADINE 10 MG TABLET PO SCH (08:22)
[2018-06-18] MEDS: LevETIRAcetam 250 MG TABLET PO SCH ×2 (08:22→16:41)
[2018-06-18] MEDS: ASCORBIC ACID 500 MG TABLET PO SCH (08:22)
[2018-06-18] MEDS: BENAZEPRIL HCL 5 MG TABLET PO SCH (08:22)
[2018-06-18] MEDS: QUEtiapine FUMARATE 200 MG TABLET PO SCH ×2 (08:22→20:17)
[2018-06-18] MEDS: TOPIRAMATE 100 MG TABLET PO SCH ×3 (08:22→16:41)
[2018-06-18] MEDS: MULTIVITAMINS WITH MINERALS, THERAPEUTIC TABLET PO SCH (08:22)
[2018-06-18] MEDS: OXYBUTYNIN CHLORIDE 5 MG ER TABLET PO SCH (08:23)
[2018-06-18] MEDS: CHLORHEXIDINE GLUCONATE 4% 118 ML TOPICAL LIQUID TP SCH (10:35)
[2018-06-18 11:34] LABS: GLUCOMETER DEV NAME(LOC) 3EX.; GLUCOSE,POINT OF CARE 291 MG/DL (70-110)
[2018-06-18 16:41] VITALS: BP 127/74
[2018-06-18] MEDS: IBUPROFEN 600 MG TABLET PO PRN (16:42)
[2018-06-18 17:19] LABS: GLUCOMETER DEV NAME(LOC) 3EX.; GLUCOSE,POINT OF CARE 189 MG/DL (70-110)
[2018-06-18 21:34] LABS: GLUCOMETER DEV NAME(LOC) 3EX.; GLUCOSE,POINT OF CARE 105 MG/DL (70-110)
[2018-06-19 05:35] LABS: GLUCOMETER DEV NAME(LOC) 3EX.; GLUCOSE,POINT OF CARE 121 MG/DL (70-110)
[2018-06-19] MEDS: MetFORMIN HCL 500 MG TABLET PO SCH ×2 (06:36→17:25)
[2018-06-19] MEDS: FERROUS SULFATE 325 MG EC TABLET PO SCH ×2 (06:36→17:25)
[2018-06-19] MEDS: LEVOTHYROXINE SODIUM 50 MCG TABLET PO SCH (06:36)
[2018-06-19] MEDS: LORATADINE 10 MG TABLET PO SCH (07:53)
[2018-06-19] MEDS: ASPIRIN 81 MG CHEWABLE TABLET PO SCH (07:53)
[2018-06-19] MEDS: TOPIRAMATE 100 MG TABLET PO SCH ×3 (07:53→17:25)
[2018-06-19] MEDS: LevETIRAcetam 250 MG TABLET PO SCH ×2 (07:53→17:25)
[2018-06-19] MEDS: BENAZEPRIL HCL 5 MG TABLET PO SCH (07:53)
[2018-06-19] MEDS: SIMVASTATIN 20 MG TABLET PO SCH (07:53)
[2018-06-19] MEDS: MULTIVITAMINS WITH MINERALS, THERAPEUTIC TABLET PO SCH (07:53)
[2018-06-19] MEDS: QUEtiapine FUMARATE 200 MG TABLET PO SCH ×2 (07:53→20:24)
[2018-06-19] MEDS: DIVALPROEX SODIUM 500 MG DR TABLET PO SCH ×2 (07:53→17:25)
[2018-06-19] MEDS: CHLORHEXIDINE GLUCONATE 4% 118 ML TOPICAL LIQUID TP SCH (07:54)
[2018-06-19] MEDS: ASCORBIC ACID 500 MG TABLET PO SCH (07:54)
[2018-06-19] MEDS: OXYBUTYNIN CHLORIDE 5 MG ER TABLET PO SCH (07:54)
[2018-06-19 08:47] VITALS: BP 147/80
[2018-06-19 12:19] LABS: GLUCOMETER DEV NAME(LOC) 3EX.; GLUCOSE,POINT OF CARE 201 MG/DL (70-110)
[2018-06-19] MEDS: INSULIN LISPRO 100 UNITS/ML SQ PRN ×3 (12:35→21:11)
[2018-06-19 17:24] LABS: GLUCOMETER DEV NAME(LOC) 3EX.; GLUCOSE,POINT OF CARE 220 MG/DL (70-110)
[2018-06-19 17:51] VITALS: BP 120/73
[2018-06-20 05:45] LABS: GLUCOMETER DEV NAME(LOC) 3EX.; GLUCOSE,POINT OF CARE 232 MG/DL (70-110)
[2018-06-20] MEDS: MetFORMIN HCL 500 MG TABLET PO SCH ×2 (06:44→17:25)
[2018-06-20] MEDS: LEVOTHYROXINE SODIUM 50 MCG TABLET PO SCH (06:44)
[2018-06-20] MEDS: FERROUS SULFATE 325 MG EC TABLET PO SCH ×2 (06:44→17:25)
[2018-06-20] MEDS: DIVALPROEX SODIUM 500 MG DR TABLET PO SCH ×2 (09:28→17:25)
[2018-06-20] MEDS: LORATADINE 10 MG TABLET PO SCH (09:28)
[2018-06-20] MEDS: SIMVASTATIN 20 MG TABLET PO SCH (09:28)
[2018-06-20] MEDS: ASCORBIC ACID 500 MG TABLET PO SCH (09:28)
[2018-06-20] MEDS: OXYBUTYNIN CHLORIDE 5 MG ER TABLET PO SCH (09:28)
[2018-06-20] MEDS: BENAZEPRIL HCL 5 MG TABLET PO SCH (09:28)
[2018-06-20] MEDS: TOPIRAMATE 100 MG TABLET PO SCH ×3 (09:29→17:25)
[2018-06-20] MEDS: QUEtiapine FUMARATE 200 MG TABLET PO SCH ×2 (09:29→20:25)
[2018-06-20] MEDS: LevETIRAcetam 250 MG TABLET PO SCH ×2 (09:29→17:25)
[2018-06-20] MEDS: ASPIRIN 81 MG CHEWABLE TABLET PO SCH (09:29)
[2018-06-20] MEDS: MULTIVITAMINS WITH MINERALS, THERAPEUTIC TABLET PO SCH (09:29)
[2018-06-20] MEDS: CHLORHEXIDINE GLUCONATE 4% 118 ML TOPICAL LIQUID TP SCH (09:35)
[2018-06-20 11:34] LABS: GLUCOMETER DEV NAME(LOC) 3EX.; GLUCOSE,POINT OF CARE 185 MG/DL (70-110)
[2018-06-20] MEDS: INSULIN LISPRO 100 UNITS/ML SQ PRN ×2 (11:56→21:30)
[2018-06-20 13:41] VITALS: BP 120/84
[2018-06-20 17:24] LABS: GLUCOMETER DEV NAME(LOC) 3EX.; GLUCOSE,POINT OF CARE 82 MG/DL (70-110)
[2018-06-20 20:25] VITALS: BP 132/79
[2018-06-20 20:59] LABS: GLUCOMETER DEV NAME(LOC) 3EX.; GLUCOSE,POINT OF CARE 165 MG/DL (70-110)
[2018-06-21] MEDS: FERROUS SULFATE 325 MG EC TABLET PO SCH ×2 (07:02→17:01)
[2018-06-21] MEDS: LEVOTHYROXINE SODIUM 50 MCG TABLET PO SCH (07:02)
[2018-06-21] MEDS: MetFORMIN HCL 500 MG TABLET PO SCH ×2 (07:02→18:25)
[2018-06-21] MEDS: LORATADINE 10 MG TABLET PO SCH (08:24)
[2018-06-21] MEDS: SIMVASTATIN 20 MG TABLET PO SCH (08:24)
[2018-06-21] MEDS: HALOPERIDOL 5 MG TABLET PO PRN (08:24)
[2018-06-21] MEDS: LevETIRAcetam 250 MG TABLET PO SCH ×2 (08:24→17:01)
[2018-06-21] MEDS: MULTIVITAMINS WITH MINERALS, THERAPEUTIC TABLET PO SCH (08:24)
[2018-06-21] MEDS: QUEtiapine FUMARATE 200 MG TABLET PO SCH ×2 (08:24→20:27)
[2018-06-21] MEDS: DIVALPROEX SODIUM 500 MG DR TABLET PO SCH ×2 (08:25→17:01)
[2018-06-21] MEDS: TOPIRAMATE 100 MG TABLET PO SCH ×3 (08:25→17:01)
[2018-06-21] MEDS: ASPIRIN 81 MG CHEWABLE TABLET PO SCH (08:25)
[2018-06-21] MEDS: BENAZEPRIL HCL 5 MG TABLET PO SCH (08:25)
[2018-06-21] MEDS: ASCORBIC ACID 500 MG TABLET PO SCH (08:25)
[2018-06-21] MEDS: OXYBUTYNIN CHLORIDE 5 MG ER TABLET PO SCH (08:25)
[2018-06-21] MEDS: CHLORHEXIDINE GLUCONATE 4% 118 ML TOPICAL LIQUID TP SCH (08:26)
[2018-06-21 08:30] VITALS: BP 135/89
[2018-06-21 18:34] VITALS: BP 129/81
[2018-06-22] MEDS: HALOPERIDOL 5 MG TABLET PO PRN (00:55)
[2018-06-22] MEDS: LEVOTHYROXINE SODIUM 50 MCG TABLET PO SCH ×2 (07:00→07:24)
[2018-06-22] MEDS: FERROUS SULFATE 325 MG EC TABLET PO SCH ×3 (07:09→17:17)
[2018-06-22] MEDS: MetFORMIN HCL 500 MG TABLET PO SCH ×3 (07:09→17:17)
[2018-06-22] MEDS: QUEtiapine FUMARATE 200 MG TABLET PO SCH ×2 (08:52→20:27)
[2018-06-22] MEDS: MULTIVITAMINS WITH MINERALS, THERAPEUTIC TABLET PO SCH (08:52)
[2018-06-22] MEDS: LORATADINE 10 MG TABLET PO SCH (08:52)
[2018-06-22] MEDS: ASPIRIN 81 MG CHEWABLE TABLET PO SCH (08:52)
[2018-06-22] MEDS: SIMVASTATIN 20 MG TABLET PO SCH (08:52)
[2018-06-22] MEDS: DIVALPROEX SODIUM 500 MG DR TABLET PO SCH ×2 (08:52→16:13)
[2018-06-22] MEDS: ASCORBIC ACID 500 MG TABLET PO SCH (08:53)
[2018-06-22] MEDS: BENAZEPRIL HCL 5 MG TABLET PO SCH (08:53)
[2018-06-22] MEDS: LevETIRAcetam 250 MG TABLET PO SCH ×2 (08:53→16:13)
[2018-06-22] MEDS: OXYBUTYNIN CHLORIDE 5 MG ER TABLET PO SCH (08:53)
[2018-06-22] MEDS: TOPIRAMATE 100 MG TABLET PO SCH ×3 (08:53→16:13)
[2018-06-22] MEDS: CHLORHEXIDINE GLUCONATE 4% 118 ML TOPICAL LIQUID TP SCH (09:21)
[2018-06-22 10:26] VITALS: BP 153/62
[2018-06-22 16:24] LABS: GLUCOMETER DEV NAME(LOC) 3EX.; GLUCOSE,POINT OF CARE 149 MG/DL (70-110)
[2018-06-22 16:45] VITALS: BP 137/79
[2018-06-22] MEDS: INSULIN LISPRO 100 UNITS/ML SQ PRN ×2 (17:34→21:25)
[2018-06-22 21:29] LABS: GLUCOMETER DEV NAME(LOC) 3EX.; GLUCOSE,POINT OF CARE 204 MG/DL (70-110)
[2018-06-23 06:04] LABS: GLUCOMETER DEV NAME(LOC) 3EX.; GLUCOSE,POINT OF CARE 147 MG/DL (70-110)
[2018-06-23] MEDS: FERROUS SULFATE 325 MG EC TABLET PO SCH ×2 (06:41→17:31)
[2018-06-23] MEDS: LEVOTHYROXINE SODIUM 50 MCG TABLET PO SCH (06:41)
[2018-06-23] MEDS: MetFORMIN HCL 500 MG TABLET PO SCH ×2 (06:41→17:31)
[2018-06-23] MEDS: BENAZEPRIL HCL 5 MG TABLET PO SCH (07:36)
[2018-06-23] MEDS: QUEtiapine FUMARATE 200 MG TABLET PO SCH ×2 (07:36→20:59)
[2018-06-23] MEDS: HALOPERIDOL 5 MG TABLET PO PRN ×2 (07:36→17:31)
[2018-06-23] MEDS: DIVALPROEX SODIUM 500 MG DR TABLET PO SCH ×2 (07:36→17:31)
[2018-06-23] MEDS: SIMVASTATIN 20 MG TABLET PO SCH (07:36)
[2018-06-23] MEDS: LORATADINE 10 MG TABLET PO SCH (07:36)
[2018-06-23] MEDS: ASPIRIN 81 MG CHEWABLE TABLET PO SCH (07:36)
[2018-06-23] MEDS: MULTIVITAMINS WITH MINERALS, THERAPEUTIC TABLET PO SCH (07:36)
[2018-06-23] MEDS: OXYBUTYNIN CHLORIDE 5 MG ER TABLET PO SCH (07:37)
[2018-06-23] MEDS: TOPIRAMATE 100 MG TABLET PO SCH ×3 (07:37→17:31)
[2018-06-23] MEDS: LevETIRAcetam 250 MG TABLET PO SCH ×2 (07:37→17:31)
[2018-06-23] MEDS: ASCORBIC ACID 500 MG TABLET PO SCH (07:37)
[2018-06-23 08:00] VITALS: BP 111/68
[2018-06-23] MEDS: CHLORHEXIDINE GLUCONATE 4% 118 ML TOPICAL LIQUID TP SCH (09:11)
[2018-06-23] MEDS ORDERED: HALOPERIDOL LACTATE 5 MG/ML VIAL ONE (11:45)
[2018-06-23] MEDS ORDERED: LORazepam 2 MG/ML VIAL IM ONE (11:45)
[2018-06-23] MEDS ORDERED: DiphenhydrAMINE HCL 50 MG/ML VIAL IM ONE (11:45)
[2018-06-23] MEDS ORDERED: HALOPERIDOL LACTATE 5 MG/ML VIAL IM ONE (11:45)
[2018-06-23] MEDS ORDERED: LORazepam 2 MG/ML VIAL ONE (11:45)
[2018-06-23] MEDS ORDERED: DiphenhydrAMINE HCL 50 MG/ML VIAL ONE (11:45)
[2018-06-23 16:20] VITALS: BP 124/78
[2018-06-23 17:49] LABS: GLUCOMETER DEV NAME(LOC) 3EX.; GLUCOSE,POINT OF CARE 166 MG/DL (70-110)
[2018-06-24 05:55] LABS: GLUCOMETER DEV NAME(LOC) 3EX.; GLUCOSE,POINT OF CARE 183 MG/DL (70-110)
[2018-06-24] MEDS: FERROUS SULFATE 325 MG EC TABLET PO SCH ×2 (06:46→17:16)
[2018-06-24] MEDS: LEVOTHYROXINE SODIUM 50 MCG TABLET PO SCH (06:46)
[2018-06-24] MEDS: MetFORMIN HCL 500 MG TABLET PO SCH ×2 (06:46→17:17)
[2018-06-24] MEDS: INSULIN LISPRO 100 UNITS/ML SQ PRN ×4 (06:57→22:09)
[2018-06-24 11:09] LABS: GLUCOMETER DEV NAME(LOC) 3EX.; GLUCOSE,POINT OF CARE 120 MG/DL (70-110)
[2018-06-24] MEDS: TOPIRAMATE 100 MG TABLET PO SCH ×3 (11:09→17:16)
[2018-06-24] MEDS: HALOPERIDOL 5 MG TABLET PO PRN (11:09)
[2018-06-24] MEDS: DIVALPROEX SODIUM 500 MG DR TABLET PO SCH ×2 (11:09→17:16)
[2018-06-24] MEDS: BENAZEPRIL HCL 5 MG TABLET PO SCH (11:10)
[2018-06-24] MEDS: ASCORBIC ACID 500 MG TABLET PO SCH (11:10)
[2018-06-24] MEDS: ASPIRIN 81 MG CHEWABLE TABLET PO SCH (11:10)
[2018-06-24] MEDS: QUEtiapine FUMARATE 200 MG TABLET PO SCH ×2 (11:10→22:07)
[2018-06-24] MEDS: SIMVASTATIN 20 MG TABLET PO SCH (11:11)
[2018-06-24] MEDS: MULTIVITAMINS WITH MINERALS, THERAPEUTIC TABLET PO SCH (11:11)
[2018-06-24] MEDS: LORATADINE 10 MG TABLET PO SCH (11:11)
[2018-06-24] MEDS: OXYBUTYNIN CHLORIDE 5 MG ER TABLET PO SCH (11:11)
[2018-06-24] MEDS: CHLORHEXIDINE GLUCONATE 4% 118 ML TOPICAL LIQUID TP SCH (11:12)
[2018-06-24] MEDS: LevETIRAcetam 250 MG TABLET PO SCH ×2 (11:12→17:16)
[2018-06-24 16:34] LABS: GLUCOMETER DEV NAME(LOC) 3EX.; GLUCOSE,POINT OF CARE 203 MG/DL (70-110)
[2018-06-24 20:13] VITALS: BP 129/75
[2018-06-24 20:54] LABS: GLUCOMETER DEV NAME(LOC) 3EX.; GLUCOSE,POINT OF CARE 252 MG/DL (70-110)
[2018-06-25 06:25] LABS: GLUCOMETER DEV NAME(LOC) 3EX.; GLUCOSE,POINT OF CARE 160 MG/DL (70-110)
[2018-06-25] MEDS: FERROUS SULFATE 325 MG EC TABLET PO SCH ×2 (06:38→17:01)
[2018-06-25] MEDS: LEVOTHYROXINE SODIUM 50 MCG TABLET PO SCH (06:38)
[2018-06-25] MEDS: MetFORMIN HCL 500 MG TABLET PO SCH ×2 (06:38→17:01)
[2018-06-25] MEDS: INSULIN LISPRO 100 UNITS/ML SQ PRN ×2 (06:39→21:50)
[2018-06-25] MEDS: SIMVASTATIN 20 MG TABLET PO SCH (08:28)
[2018-06-25] MEDS: ASPIRIN 81 MG CHEWABLE TABLET PO SCH (08:28)
[2018-06-25] MEDS: DIVALPROEX SODIUM 500 MG DR TABLET PO SCH ×2 (08:29→17:01)
[2018-06-25] MEDS: ASCORBIC ACID 500 MG TABLET PO SCH (08:29)
[2018-06-25] MEDS: LORATADINE 10 MG TABLET PO SCH (08:29)
[2018-06-25] MEDS: BENAZEPRIL HCL 5 MG TABLET PO SCH (08:29)
[2018-06-25] MEDS: LevETIRAcetam 250 MG TABLET PO SCH ×2 (08:29→17:01)
[2018-06-25] MEDS: OXYBUTYNIN CHLORIDE 5 MG ER TABLET PO SCH (08:29)
[2018-06-25] MEDS: TOPIRAMATE 100 MG TABLET PO SCH ×3 (08:30→17:01)
[2018-06-25] MEDS: MULTIVITAMINS WITH MINERALS, THERAPEUTIC TABLET PO SCH (08:30)
[2018-06-25] MEDS: QUEtiapine FUMARATE 200 MG TABLET PO SCH ×2 (08:30→20:41)
[2018-06-25] MEDS: CHLORHEXIDINE GLUCONATE 4% 118 ML TOPICAL LIQUID TP SCH (10:50)
[2018-06-25 21:14] LABS: GLUCOMETER DEV NAME(LOC) 3EX.; GLUCOSE,POINT OF CARE 238 MG/DL (70-110)
[2018-06-26 06:00] LABS: GLUCOMETER DEV NAME(LOC) 3EX.; GLUCOSE,POINT OF CARE 148 MG/DL (70-110)
[2018-06-26] MEDS: INSULIN LISPRO 100 UNITS/ML SQ PRN ×4 (07:19→21:37)
[2018-06-26] MEDS: FERROUS SULFATE 325 MG EC TABLET PO SCH ×2 (07:20→17:34)
[2018-06-26] MEDS: MetFORMIN HCL 500 MG TABLET PO SCH ×2 (07:20→17:34)
[2018-06-26] MEDS: LEVOTHYROXINE SODIUM 50 MCG TABLET PO SCH (07:20)
[2018-06-26] MEDS: HALOPERIDOL 5 MG TABLET PO PRN (07:47)
[2018-06-26 08:00] VITALS: BP 131/89
[2018-06-26] MEDS: LORATADINE 10 MG TABLET PO SCH (08:01)
[2018-06-26] MEDS: OXYBUTYNIN CHLORIDE 5 MG ER TABLET PO SCH (08:01)
[2018-06-26] MEDS: MULTIVITAMINS WITH MINERALS, THERAPEUTIC TABLET PO SCH (08:01)
[2018-06-26] MEDS: SIMVASTATIN 20 MG TABLET PO SCH (08:01)
[2018-06-26] MEDS: ASPIRIN 81 MG CHEWABLE TABLET PO SCH (08:01)
[2018-06-26] MEDS: BENAZEPRIL HCL 5 MG TABLET PO SCH (08:02)
[2018-06-26] MEDS: LevETIRAcetam 250 MG TABLET PO SCH ×2 (08:02→17:34)
[2018-06-26] MEDS: TOPIRAMATE 100 MG TABLET PO SCH ×3 (08:02→17:34)
[2018-06-26] MEDS: ASCORBIC ACID 500 MG TABLET PO SCH (08:02)
[2018-06-26] MEDS: QUEtiapine FUMARATE 200 MG TABLET PO SCH ×2 (08:02→20:35)
[2018-06-26] MEDS: DIVALPROEX SODIUM 500 MG DR TABLET PO SCH ×2 (08:03→17:34)
[2018-06-26 11:40] LABS: GLUCOMETER DEV NAME(LOC) 3EX.; GLUCOSE,POINT OF CARE 174 MG/DL (70-110)
[2018-06-26] MEDS: CHLORHEXIDINE GLUCONATE 4% 118 ML TOPICAL LIQUID TP SCH (12:56)
[2018-06-26 16:55] VITALS: BP 166/68
[2018-06-26 17:40] LABS: GLUCOMETER DEV NAME(LOC) 3EX.; GLUCOSE,POINT OF CARE 208 MG/DL (70-110)
[2018-06-26 21:45] LABS: GLUCOMETER DEV NAME(LOC) 3EX.; GLUCOSE,POINT OF CARE 150 MG/DL (70-110)
[2018-06-27] MEDS: MetFORMIN HCL 500 MG TABLET PO SCH ×2 (07:14→17:20)
[2018-06-27] MEDS: LEVOTHYROXINE SODIUM 50 MCG TABLET PO SCH (07:14)
[2018-06-27] MEDS: FERROUS SULFATE 325 MG EC TABLET PO SCH ×2 (07:14→17:20)
[2018-06-27] MEDS: DIVALPROEX SODIUM 500 MG DR TABLET PO SCH ×2 (07:57→16:06)
[2018-06-27] MEDS: HALOPERIDOL 5 MG TABLET PO PRN (07:57)
[2018-06-27] MEDS: LevETIRAcetam 250 MG TABLET PO SCH ×2 (07:57→16:07)
[2018-06-27] MEDS: SIMVASTATIN 20 MG TABLET PO SCH (07:57)
[2018-06-27] MEDS: LORATADINE 10 MG TABLET PO SCH (07:57)
[2018-06-27] MEDS: MULTIVITAMINS WITH MINERALS, THERAPEUTIC TABLET PO SCH (07:57)
[2018-06-27] MEDS: ASPIRIN 81 MG CHEWABLE TABLET PO SCH (07:57)
[2018-06-27] MEDS: QUEtiapine FUMARATE 200 MG TABLET PO SCH ×2 (07:57→20:47)
[2018-06-27] MEDS: ASCORBIC ACID 500 MG TABLET PO SCH (07:57)
[2018-06-27] MEDS: OXYBUTYNIN CHLORIDE 5 MG ER TABLET PO SCH (07:58)
[2018-06-27] MEDS: TOPIRAMATE 100 MG TABLET PO SCH ×3 (07:58→16:07)
[2018-06-27] MEDS: CHLORHEXIDINE GLUCONATE 4% 118 ML TOPICAL LIQUID TP SCH (10:01)
[2018-06-27] MEDS: BENAZEPRIL HCL 5 MG TABLET PO SCH (10:01)
[2018-06-27 11:39] LABS: GLUCOMETER DEV NAME(LOC) 3EX.; GLUCOSE,POINT OF CARE 144 MG/DL (70-110)
[2018-06-27] MEDS: INSULIN LISPRO 100 UNITS/ML SQ PRN (12:21)
[2018-06-27 16:24] LABS: GLUCOMETER DEV NAME(LOC) 3EX.; GLUCOSE,POINT OF CARE 121 MG/DL (70-110)
[2018-06-27 21:25] LABS: GLUCOMETER DEV NAME(LOC) 3EX.; GLUCOSE,POINT OF CARE 106 MG/DL (70-110)
[2018-06-28] MEDS: LEVOTHYROXINE SODIUM 50 MCG TABLET PO SCH (06:38)
[2018-06-28] MEDS: MetFORMIN HCL 500 MG TABLET PO SCH ×2 (06:38→18:14)
[2018-06-28] MEDS: FERROUS SULFATE 325 MG EC TABLET PO SCH ×2 (06:38→18:14)
[2018-06-28] MEDS: INSULIN LISPRO 100 UNITS/ML SQ PRN ×3 (06:48→18:02)
[2018-06-28] MEDS: DOCUSATE SODIUM 100 MG CAPSULE PO PRN (09:38)
[2018-06-28] MEDS: DIVALPROEX SODIUM 500 MG DR TABLET PO SCH ×2 (09:38→18:14)
[2018-06-28] MEDS: ASPIRIN 81 MG CHEWABLE TABLET PO SCH (09:39)
[2018-06-28] MEDS: LORATADINE 10 MG TABLET PO SCH (09:39)
[2018-06-28] MEDS: LevETIRAcetam 250 MG TABLET PO SCH ×2 (09:39→18:15)
[2018-06-28] MEDS: MULTIVITAMINS WITH MINERALS, THERAPEUTIC TABLET PO SCH (09:39)
[2018-06-28] MEDS: OXYBUTYNIN CHLORIDE 5 MG ER TABLET PO SCH (09:39)
[2018-06-28] MEDS: QUEtiapine FUMARATE 200 MG TABLET PO SCH ×2 (09:40→20:50)
[2018-06-28] MEDS: TOPIRAMATE 100 MG TABLET PO SCH ×3 (09:40→18:15)
[2018-06-28] MEDS: ASCORBIC ACID 500 MG TABLET PO SCH (09:40)
[2018-06-28] MEDS: SIMVASTATIN 20 MG TABLET PO SCH (09:40)
[2018-06-28] MEDS: BENAZEPRIL HCL 5 MG TABLET PO SCH (09:40)
[2018-06-28] MEDS: CHLORHEXIDINE GLUCONATE 4% 118 ML TOPICAL LIQUID TP SCH (10:16)
[2018-06-28 11:34] LABS: GLUCOMETER DEV NAME(LOC) 3EX.; GLUCOSE,POINT OF CARE 153 MG/DL (70-110)
[2018-06-28 11:35] LABS: GLUCOMETER DEV NAME(LOC) 3EX.; GLUCOSE,POINT OF CARE 192 MG/DL (70-110)
[2018-06-28 16:42] VITALS: BP 105/64
[2018-06-28] MEDS: HALOPERIDOL 5 MG TABLET PO PRN (18:14)
[2018-06-28 18:34] LABS: GLUCOMETER DEV NAME(LOC) 3EX.; GLUCOSE,POINT OF CARE 138 MG/DL (70-110)
[2018-06-29 06:20] LABS: GLUCOMETER DEV NAME(LOC) 3EX.; GLUCOSE,POINT OF CARE 169 MG/DL (70-110)
[2018-06-29] MEDS: LEVOTHYROXINE SODIUM 50 MCG TABLET PO SCH (07:00)
[2018-06-29] MEDS: INSULIN LISPRO 100 UNITS/ML SQ PRN ×3 (07:02→21:16)
[2018-06-29] MEDS: MetFORMIN HCL 500 MG TABLET PO SCH ×2 (07:12→16:49)
[2018-06-29] MEDS: FERROUS SULFATE 325 MG EC TABLET PO SCH ×2 (07:12→16:49)
[2018-06-29 10:00] VITALS: BP 118/79
[2018-06-29] MEDS: CHLORHEXIDINE GLUCONATE 4% 118 ML TOPICAL LIQUID TP SCH (10:37)
[2018-06-29] MEDS: QUEtiapine FUMARATE 200 MG TABLET PO SCH ×2 (10:37→20:42)
[2018-06-29] MEDS: OXYBUTYNIN CHLORIDE 5 MG ER TABLET PO SCH (10:37)
[2018-06-29] MEDS: ASCORBIC ACID 500 MG TABLET PO SCH (10:37)
[2018-06-29] MEDS: DIVALPROEX SODIUM 500 MG DR TABLET PO SCH ×2 (10:37→16:49)
[2018-06-29] MEDS: LORATADINE 10 MG TABLET PO SCH (10:37)
[2018-06-29] MEDS: BENAZEPRIL HCL 5 MG TABLET PO SCH (10:37)
[2018-06-29] MEDS: LevETIRAcetam 250 MG TABLET PO SCH ×2 (10:37→16:50)
[2018-06-29] MEDS: TOPIRAMATE 100 MG TABLET PO SCH ×3 (10:37→16:49)
[2018-06-29] MEDS: MULTIVITAMINS WITH MINERALS, THERAPEUTIC TABLET PO SCH (10:37)
[2018-06-29] MEDS: ASPIRIN 81 MG CHEWABLE TABLET PO SCH (10:37)
[2018-06-29] MEDS: SIMVASTATIN 20 MG TABLET PO SCH (10:37)
[2018-06-29 16:44] LABS: GLUCOMETER DEV NAME(LOC) 3EX.; GLUCOSE,POINT OF CARE 189 MG/DL (70-110)
[2018-06-29 21:14] LABS: GLUCOMETER DEV NAME(LOC) 3EX.; GLUCOSE,POINT OF CARE 220 MG/DL (70-110)
[2018-06-30 05:35] LABS: GLUCOMETER DEV NAME(LOC) 3EX.; GLUCOSE,POINT OF CARE 154 MG/DL (70-110)
[2018-06-30] MEDS: FERROUS SULFATE 325 MG EC TABLET PO SCH ×2 (06:47→16:30)
[2018-06-30] MEDS: MetFORMIN HCL 500 MG TABLET PO SCH ×2 (06:47→16:30)
[2018-06-30] MEDS: LEVOTHYROXINE SODIUM 50 MCG TABLET PO SCH (06:47)
[2018-06-30] MEDS: INSULIN LISPRO 100 UNITS/ML SQ PRN ×4 (06:57→21:24)
[2018-06-30] MEDS: ASPIRIN 81 MG CHEWABLE TABLET PO SCH (07:50)
[2018-06-30] MEDS: MULTIVITAMINS WITH MINERALS, THERAPEUTIC TABLET PO SCH (07:51)
[2018-06-30] MEDS: SIMVASTATIN 20 MG TABLET PO SCH (07:51)
[2018-06-30] MEDS: DIVALPROEX SODIUM 500 MG DR TABLET PO SCH ×2 (07:51→16:30)
[2018-06-30] MEDS: QUEtiapine FUMARATE 200 MG TABLET PO SCH ×2 (07:51→20:35)
[2018-06-30] MEDS: OXYBUTYNIN CHLORIDE 5 MG ER TABLET PO SCH (07:51)
[2018-06-30] MEDS: HALOPERIDOL 5 MG TABLET PO PRN (07:51)
[2018-06-30] MEDS: TOPIRAMATE 100 MG TABLET PO SCH ×3 (07:51→16:30)
[2018-06-30] MEDS: LevETIRAcetam 250 MG TABLET PO SCH ×2 (07:52→16:30)
[2018-06-30] MEDS: ASCORBIC ACID 500 MG TABLET PO SCH (07:52)
[2018-06-30] MEDS: LORATADINE 10 MG TABLET PO SCH (07:54)
[2018-06-30] MEDS: BENAZEPRIL HCL 5 MG TABLET PO SCH (11:30)
[2018-06-30] MEDS: CHLORHEXIDINE GLUCONATE 4% 118 ML TOPICAL LIQUID TP SCH (11:30)
[2018-06-30 11:34] LABS: GLUCOMETER DEV NAME(LOC) 3EX.; GLUCOSE,POINT OF CARE 230 MG/DL (70-110)
[2018-06-30 16:23] VITALS: BP 117/77
[2018-06-30 16:55] LABS: GLUCOMETER DEV NAME(LOC) 3EX.; GLUCOSE,POINT OF CARE 226 MG/DL (70-110)
[2018-06-30 21:25] LABS: GLUCOMETER DEV NAME(LOC) 3EX.; GLUCOSE,POINT OF CARE 156 MG/DL (70-110)
[2018-07-01 05:25] LABS: GLUCOMETER DEV NAME(LOC) 3EX.; GLUCOSE,POINT OF CARE 125 MG/DL (70-110)
[2018-07-01] MEDS: LEVOTHYROXINE SODIUM 50 MCG TABLET PO SCH (06:45)
[2018-07-01] MEDS: FERROUS SULFATE 325 MG EC TABLET PO SCH ×2 (06:45→17:39)
[2018-07-01] MEDS: MetFORMIN HCL 500 MG TABLET PO SCH ×2 (06:45→17:39)
[2018-07-01] MEDS: HALOPERIDOL 5 MG TABLET PO PRN (07:55)
[2018-07-01] MEDS: QUEtiapine FUMARATE 200 MG TABLET PO SCH ×2 (07:55→21:02)
[2018-07-01] MEDS: LevETIRAcetam 250 MG TABLET PO SCH ×2 (07:55→16:30)
[2018-07-01] MEDS: MULTIVITAMINS WITH MINERALS, THERAPEUTIC TABLET PO SCH (07:55)
[2018-07-01] MEDS: DIVALPROEX SODIUM 500 MG DR TABLET PO SCH ×2 (07:55→16:29)
[2018-07-01] MEDS: ASPIRIN 81 MG CHEWABLE TABLET PO SCH (07:55)
[2018-07-01] MEDS: OXYBUTYNIN CHLORIDE 5 MG ER TABLET PO SCH (07:55)
[2018-07-01] MEDS: SIMVASTATIN 20 MG TABLET PO SCH (07:55)
[2018-07-01] MEDS: LORATADINE 10 MG TABLET PO SCH (07:55)
[2018-07-01] MEDS: TOPIRAMATE 100 MG TABLET PO SCH ×3 (07:56→16:30)
[2018-07-01 08:48] VITALS: BP 101/74
[2018-07-01] MEDS: ASCORBIC ACID 500 MG TABLET PO SCH (09:23)
[2018-07-01] MEDS: BENAZEPRIL HCL 5 MG TABLET PO SCH (09:23)
[2018-07-01] MEDS: CHLORHEXIDINE GLUCONATE 4% 118 ML TOPICAL LIQUID TP SCH (09:23)
[2018-07-01 11:29] LABS: GLUCOMETER DEV NAME(LOC) 3EX.; GLUCOSE,POINT OF CARE 227 MG/DL (70-110)
[2018-07-01] MEDS: INSULIN LISPRO 100 UNITS/ML SQ PRN ×3 (11:41→21:01)
[2018-07-01 16:03] VITALS: BP 114/78
[2018-07-01 16:04] LABS: GLUCOMETER DEV NAME(LOC) 3EX.; GLUCOSE,POINT OF CARE 167 MG/DL (70-110)
[2018-07-01 20:55] LABS: GLUCOMETER DEV NAME(LOC) 3EX.; GLUCOSE,POINT OF CARE 239 MG/DL (70-110)
[2018-07-02] MEDS: MetFORMIN HCL 500 MG TABLET PO SCH ×3 (06:56→17:29)
[2018-07-02] MEDS: FERROUS SULFATE 325 MG EC TABLET PO SCH ×3 (06:56→17:29)
[2018-07-02] MEDS: LEVOTHYROXINE SODIUM 50 MCG TABLET PO SCH ×2 (06:56→07:00)
[2018-07-02] MEDS: QUEtiapine FUMARATE 200 MG TABLET PO SCH ×2 (07:59→21:07)
[2018-07-02] MEDS: LevETIRAcetam 250 MG TABLET PO SCH ×2 (07:59→17:30)
[2018-07-02] MEDS: HALOPERIDOL 5 MG TABLET PO PRN (07:59)
[2018-07-02] MEDS: DIVALPROEX SODIUM 500 MG DR TABLET PO SCH ×2 (07:59→17:29)
[2018-07-02] MEDS: TOPIRAMATE 100 MG TABLET PO SCH ×3 (07:59→17:30)
[2018-07-02] MEDS: MULTIVITAMINS WITH MINERALS, THERAPEUTIC TABLET PO SCH (07:59)
[2018-07-02] MEDS: ASPIRIN 81 MG CHEWABLE TABLET PO SCH (07:59)
[2018-07-02] MEDS: SIMVASTATIN 20 MG TABLET PO SCH (07:59)
[2018-07-02] MEDS: LORATADINE 10 MG TABLET PO SCH (07:59)
[2018-07-02] MEDS: ASCORBIC ACID 500 MG TABLET PO SCH (08:00)
[2018-07-02] MEDS: OXYBUTYNIN CHLORIDE 5 MG ER TABLET PO SCH (08:00)
[2018-07-02 09:00] VITALS: BP 118/70
[2018-07-02] MEDS: CHLORHEXIDINE GLUCONATE 4% 118 ML TOPICAL LIQUID TP SCH (09:00)
[2018-07-02] MEDS: BENAZEPRIL HCL 5 MG TABLET PO SCH (09:00)
[2018-07-02 11:14] LABS: GLUCOMETER DEV NAME(LOC) 3EX.; GLUCOSE,POINT OF CARE 158 MG/DL (70-110)
[2018-07-02] MEDS: INSULIN LISPRO 100 UNITS/ML SQ PRN (12:15)
[2018-07-02 16:14] VITALS: BP 116/82
[2018-07-02 17:19] LABS: GLUCOMETER DEV NAME(LOC) 3EX.; GLUCOSE,POINT OF CARE 125 MG/DL (70-110)
[2018-07-02 22:05] LABS: GLUCOMETER DEV NAME(LOC) 3EX.; GLUCOSE,POINT OF CARE 161 MG/DL (70-110)
[2018-07-03 06:10] LABS: GLUCOMETER DEV NAME(LOC) 3EX.; GLUCOSE,POINT OF CARE 149 MG/DL (70-110)
[2018-07-03] MEDS: MetFORMIN HCL 500 MG TABLET PO SCH ×2 (06:57→17:31)
[2018-07-03] MEDS: FERROUS SULFATE 325 MG EC TABLET PO SCH ×2 (06:57→17:30)
[2018-07-03] MEDS: LEVOTHYROXINE SODIUM 50 MCG TABLET PO SCH (06:57)
[2018-07-03] MEDS: INSULIN LISPRO 100 UNITS/ML SQ PRN ×3 (07:00→17:39)
[2018-07-03 08:22] VITALS: BP 112/68
[2018-07-03] MEDS: MULTIVITAMINS WITH MINERALS, THERAPEUTIC TABLET PO SCH (08:39)
[2018-07-03] MEDS: SIMVASTATIN 20 MG TABLET PO SCH (08:39)
[2018-07-03] MEDS: LORATADINE 10 MG TABLET PO SCH (08:40)
[2018-07-03] MEDS: LevETIRAcetam 250 MG TABLET PO SCH ×2 (08:40→17:30)
[2018-07-03] MEDS: ASPIRIN 81 MG CHEWABLE TABLET PO SCH (08:40)
[2018-07-03] MEDS: OXYBUTYNIN CHLORIDE 5 MG ER TABLET PO SCH (08:40)
[2018-07-03] MEDS: DIVALPROEX SODIUM 500 MG DR TABLET PO SCH ×2 (08:40→17:30)
[2018-07-03] MEDS: QUEtiapine FUMARATE 200 MG TABLET PO SCH ×2 (08:40→20:44)
[2018-07-03] MEDS: ASCORBIC ACID 500 MG TABLET PO SCH (08:41)
[2018-07-03] MEDS: TOPIRAMATE 100 MG TABLET PO SCH ×3 (08:41→17:31)
[2018-07-03] MEDS: BENAZEPRIL HCL 5 MG TABLET PO SCH (08:41)
[2018-07-03] MEDS: CHLORHEXIDINE GLUCONATE 4% 118 ML TOPICAL LIQUID TP SCH (08:42)
[2018-07-03] MEDS: HALOPERIDOL 5 MG TABLET PO PRN (08:47)
[2018-07-03 11:20] LABS: GLUCOMETER DEV NAME(LOC) 3EX.; GLUCOSE,POINT OF CARE 213 MG/DL (70-110)
[2018-07-03 16:40] VITALS: BP 128/79
[2018-07-03 17:45] LABS: GLUCOMETER DEV NAME(LOC) 3EX.; GLUCOSE,POINT OF CARE 162 MG/DL (70-110)
[2018-07-03 21:34] LABS: GLUCOMETER DEV NAME(LOC) 3EX.; GLUCOSE,POINT OF CARE 154 MG/DL (70-110)
[2018-07-04 06:05] LABS: GLUCOMETER DEV NAME(LOC) 3EX.; GLUCOSE,POINT OF CARE 144 MG/DL (70-110)
[2018-07-04] MEDS: MetFORMIN HCL 500 MG TABLET PO SCH ×2 (06:58→16:59)
[2018-07-04] MEDS: LEVOTHYROXINE SODIUM 50 MCG TABLET PO SCH (06:58)
[2018-07-04] MEDS: FERROUS SULFATE 325 MG EC TABLET PO SCH ×2 (06:58→16:59)
[2018-07-04] MEDS: QUEtiapine FUMARATE 200 MG TABLET PO SCH ×2 (08:09→21:32)
[2018-07-04] MEDS: MULTIVITAMINS WITH MINERALS, THERAPEUTIC TABLET PO SCH (08:09)
[2018-07-04] MEDS: SIMVASTATIN 20 MG TABLET PO SCH (08:09)
[2018-07-04] MEDS: LORATADINE 10 MG TABLET PO SCH (08:10)
[2018-07-04] MEDS: ASPIRIN 81 MG CHEWABLE TABLET PO SCH (08:10)
[2018-07-04] MEDS: HALOPERIDOL 5 MG TABLET PO PRN (08:10)
[2018-07-04] MEDS: LevETIRAcetam 250 MG TABLET PO SCH ×2 (08:11→17:00)
[2018-07-04] MEDS: DIVALPROEX SODIUM 500 MG DR TABLET PO SCH ×2 (08:11→16:59)
[2018-07-04] MEDS: OXYBUTYNIN CHLORIDE 5 MG ER TABLET PO SCH (08:11)
[2018-07-04] MEDS: TOPIRAMATE 100 MG TABLET PO SCH ×3 (08:11→17:00)
[2018-07-04] MEDS: BENAZEPRIL HCL 5 MG TABLET PO SCH (08:11)
[2018-07-04] MEDS: ASCORBIC ACID 500 MG TABLET PO SCH (08:12)
[2018-07-04 09:30] VITALS: BP 101/92
[2018-07-04] MEDS: CHLORHEXIDINE GLUCONATE 4% 118 ML TOPICAL LIQUID TP SCH (10:24)
[2018-07-04 11:20] LABS: GLUCOMETER DEV NAME(LOC) 3EX.; GLUCOSE,POINT OF CARE 183 MG/DL (70-110)
[2018-07-04] MEDS: INSULIN LISPRO 100 UNITS/ML SQ PRN ×2 (11:52→17:02)
[2018-07-04 16:54] LABS: GLUCOMETER DEV NAME(LOC) 3EX.; GLUCOSE,POINT OF CARE 253 MG/DL (70-110)
[2018-07-04 20:29] VITALS: BP 110/90
[2018-07-05] MEDS: LEVOTHYROXINE SODIUM 50 MCG TABLET PO SCH (06:59)
[2018-07-05] MEDS: FERROUS SULFATE 325 MG EC TABLET PO SCH ×2 (06:59→16:12)
[2018-07-05] MEDS: MetFORMIN HCL 500 MG TABLET PO SCH ×2 (06:59→16:46)
[2018-07-05] MEDS: BENAZEPRIL HCL 5 MG TABLET PO SCH (09:00)
[2018-07-05] MEDS: TOPIRAMATE 100 MG TABLET PO SCH ×3 (09:00→16:12)
[2018-07-05] MEDS: OXYBUTYNIN CHLORIDE 5 MG ER TABLET PO SCH (09:00)
[2018-07-05] MEDS: MULTIVITAMINS WITH MINERALS, THERAPEUTIC TABLET PO SCH (09:00)
[2018-07-05] MEDS: DIVALPROEX SODIUM 500 MG DR TABLET PO SCH ×2 (09:00→16:12)
[2018-07-05] MEDS: QUEtiapine FUMARATE 200 MG TABLET PO SCH ×2 (09:00→20:17)
[2018-07-05] MEDS: ASCORBIC ACID 500 MG TABLET PO SCH (09:00)
[2018-07-05] MEDS: LORATADINE 10 MG TABLET PO SCH (09:00)
[2018-07-05] MEDS: SIMVASTATIN 20 MG TABLET PO SCH (09:00)
[2018-07-05] MEDS: ASPIRIN 81 MG CHEWABLE TABLET PO SCH (09:00)
[2018-07-05] MEDS: LevETIRAcetam 250 MG TABLET PO SCH ×2 (09:00→16:12)
[2018-07-05] MEDS ORDERED: LORazepam 2 MG/ML VIAL ONE (11:19)
[2018-07-05] MEDS ORDERED: HALOPERIDOL LACTATE 5 MG/ML VIAL ONE (11:19)
[2018-07-05] MEDS ORDERED: DiphenhydrAMINE HCL 50 MG/ML VIAL ONE (11:19)
[2018-07-05] MEDS ORDERED: HALOPERIDOL LACTATE 5 MG/ML VIAL IM ONE (11:30)
[2018-07-05] MEDS ORDERED: LORazepam 2 MG/ML VIAL IM ONE (11:30)
[2018-07-05] MEDS ORDERED: DiphenhydrAMINE HCL 50 MG/ML VIAL IM ONE (11:30)
[2018-07-05] MEDS: CHLORHEXIDINE GLUCONATE 4% 118 ML TOPICAL LIQUID TP SCH (12:35)
[2018-07-05 16:04] VITALS: BP 117/78
[2018-07-05 16:55] LABS: GLUCOMETER DEV NAME(LOC) 3EX.; GLUCOSE,POINT OF CARE 269 MG/DL (70-110)
[2018-07-05] MEDS: INSULIN LISPRO 100 UNITS/ML SQ PRN ×2 (17:04→21:03)
[2018-07-05 20:39] LABS: GLUCOMETER DEV NAME(LOC) 3EX.; GLUCOSE,POINT OF CARE 219 MG/DL (70-110)
[2018-07-06 06:04] LABS: GLUCOMETER DEV NAME(LOC) 3EX.; GLUCOSE,POINT OF CARE 122 MG/DL (70-110)
[2018-07-06] MEDS: MetFORMIN HCL 500 MG TABLET PO SCH ×2 (06:52→17:12)
[2018-07-06] MEDS: LEVOTHYROXINE SODIUM 50 MCG TABLET PO SCH (06:52)
[2018-07-06] MEDS: FERROUS SULFATE 325 MG EC TABLET PO SCH ×2 (06:52→17:11)
[2018-07-06 08:00] VITALS: BP 121/76
[2018-07-06] MEDS: LevETIRAcetam 250 MG TABLET PO SCH ×2 (10:12→16:25)
[2018-07-06] MEDS: QUEtiapine FUMARATE 200 MG TABLET PO SCH ×2 (10:12→21:30)
[2018-07-06] MEDS: LORATADINE 10 MG TABLET PO SCH (10:12)
[2018-07-06] MEDS: OXYBUTYNIN CHLORIDE 5 MG ER TABLET PO SCH (10:13)
[2018-07-06] MEDS: HALOPERIDOL 5 MG TABLET PO PRN (10:13)
[2018-07-06] MEDS: ASPIRIN 81 MG CHEWABLE TABLET PO SCH (10:13)
[2018-07-06] MEDS: DIVALPROEX SODIUM 500 MG DR TABLET PO SCH ×2 (10:13→16:25)
[2018-07-06] MEDS: BENAZEPRIL HCL 5 MG TABLET PO SCH (10:13)
[2018-07-06] MEDS: TOPIRAMATE 100 MG TABLET PO SCH ×3 (10:13→16:26)
[2018-07-06] MEDS: MULTIVITAMINS WITH MINERALS, THERAPEUTIC TABLET PO SCH (10:13)
[2018-07-06] MEDS: SIMVASTATIN 20 MG TABLET PO SCH (10:14)
[2018-07-06] MEDS: ASCORBIC ACID 500 MG TABLET PO SCH (10:14)
[2018-07-06] MEDS: CHLORHEXIDINE GLUCONATE 4% 118 ML TOPICAL LIQUID TP SCH (10:14)
[2018-07-06 11:34] LABS: GLUCOMETER DEV NAME(LOC) 3EX.; GLUCOSE,POINT OF CARE 160 MG/DL (70-110)
[2018-07-06] MEDS: INSULIN LISPRO 100 UNITS/ML SQ PRN ×2 (11:35→16:29)
[2018-07-06 16:05] VITALS: BP 119/82
[2018-07-06 16:34] LABS: GLUCOMETER DEV NAME(LOC) 3EX.; GLUCOSE,POINT OF CARE 158 MG/DL (70-110)
[2018-07-07 05:40] LABS: GLUCOMETER DEV NAME(LOC) 3EX.; GLUCOSE,POINT OF CARE 136 MG/DL (70-110)
[2018-07-07] MEDS: LEVOTHYROXINE SODIUM 50 MCG TABLET PO SCH (06:55)
[2018-07-07] MEDS: MetFORMIN HCL 500 MG TABLET PO SCH ×2 (06:55→17:30)
[2018-07-07] MEDS: FERROUS SULFATE 325 MG EC TABLET PO SCH ×2 (06:55→17:30)
[2018-07-07] MEDS: MULTIVITAMINS WITH MINERALS, THERAPEUTIC TABLET PO SCH (07:52)
[2018-07-07] MEDS: LevETIRAcetam 250 MG TABLET PO SCH ×2 (07:52→17:30)
[2018-07-07] MEDS: HALOPERIDOL 5 MG TABLET PO PRN (07:52)
[2018-07-07] MEDS: ASPIRIN 81 MG CHEWABLE TABLET PO SCH (07:52)
[2018-07-07] MEDS: ASCORBIC ACID 500 MG TABLET PO SCH (07:52)
[2018-07-07] MEDS: QUEtiapine FUMARATE 200 MG TABLET PO SCH ×2 (07:52→20:27)
[2018-07-07] MEDS: TOPIRAMATE 100 MG TABLET PO SCH ×3 (07:52→17:30)
[2018-07-07] MEDS: LORATADINE 10 MG TABLET PO SCH (07:52)
[2018-07-07] MEDS: OXYBUTYNIN CHLORIDE 5 MG ER TABLET PO SCH (07:52)
[2018-07-07] MEDS: DIVALPROEX SODIUM 500 MG DR TABLET PO SCH ×2 (07:54→17:30)
[2018-07-07] MEDS: SIMVASTATIN 20 MG TABLET PO SCH (08:00)
[2018-07-07] MEDS: BENAZEPRIL HCL 5 MG TABLET PO SCH (09:00)
[2018-07-07] MEDS: CHLORHEXIDINE GLUCONATE 4% 118 ML TOPICAL LIQUID TP SCH (12:48)
[2018-07-07 17:34] LABS: GLUCOMETER DEV NAME(LOC) 3EX.; GLUCOSE,POINT OF CARE 206 MG/DL (70-110)
[2018-07-07] MEDS: INSULIN LISPRO 100 UNITS/ML SQ PRN (17:34)
[2018-07-07 21:09] LABS: GLUCOMETER DEV NAME(LOC) 3EX.; GLUCOSE,POINT OF CARE 143 MG/DL (70-110)
[2018-07-08] MEDS: FERROUS SULFATE 325 MG EC TABLET PO SCH ×2 (06:54→16:31)
[2018-07-08] MEDS: LEVOTHYROXINE SODIUM 50 MCG TABLET PO SCH (06:54)
[2018-07-08] MEDS: MetFORMIN HCL 500 MG TABLET PO SCH ×2 (06:54→16:33)
[2018-07-08 08:00] VITALS: BP 116/80
[2018-07-08] MEDS: TOPIRAMATE 100 MG TABLET PO SCH ×3 (09:52→16:31)
[2018-07-08] MEDS: OXYBUTYNIN CHLORIDE 5 MG ER TABLET PO SCH (09:52)
[2018-07-08] MEDS: ASCORBIC ACID 500 MG TABLET PO SCH (09:52)
[2018-07-08] MEDS: HALOPERIDOL 5 MG TABLET PO PRN (09:52)
[2018-07-08] MEDS: DIVALPROEX SODIUM 500 MG DR TABLET PO SCH ×2 (09:52→16:32)
[2018-07-08] MEDS: QUEtiapine FUMARATE 200 MG TABLET PO SCH ×2 (09:53→20:34)
[2018-07-08] MEDS: BENAZEPRIL HCL 5 MG TABLET PO SCH (09:53)
[2018-07-08] MEDS: ASPIRIN 81 MG CHEWABLE TABLET PO SCH (09:53)
[2018-07-08] MEDS: SIMVASTATIN 20 MG TABLET PO SCH (09:53)
[2018-07-08] MEDS: LORATADINE 10 MG TABLET PO SCH (09:53)
[2018-07-08] MEDS: MULTIVITAMINS WITH MINERALS, THERAPEUTIC TABLET PO SCH (09:53)
[2018-07-08] MEDS: LevETIRAcetam 250 MG TABLET PO SCH ×2 (09:53→16:32)
[2018-07-08 11:19] LABS: GLUCOMETER DEV NAME(LOC) 3EX.; GLUCOSE,POINT OF CARE 166 MG/DL (70-110)
[2018-07-08] MEDS: INSULIN LISPRO 100 UNITS/ML SQ PRN ×3 (11:39→21:51)
[2018-07-08] MEDS: CHLORHEXIDINE GLUCONATE 4% 118 ML TOPICAL LIQUID TP SCH (11:41)
[2018-07-08 17:09] LABS: GLUCOMETER DEV NAME(LOC) 3EX.; GLUCOSE,POINT OF CARE 196 MG/DL (70-110)
[2018-07-08 17:51] VITALS: BP 122/79
[2018-07-08 20:49] LABS: GLUCOMETER DEV NAME(LOC) 3EX.; GLUCOSE,POINT OF CARE 176 MG/DL (70-110)
[2018-07-09] MEDS: FERROUS SULFATE 325 MG EC TABLET PO SCH ×2 (06:39→17:35)
[2018-07-09] MEDS: LEVOTHYROXINE SODIUM 50 MCG TABLET PO SCH (06:40)
[2018-07-09] MEDS: MetFORMIN HCL 500 MG TABLET PO SCH ×2 (06:40→17:35)
[2018-07-09 07:19] LABS: GLUCOMETER DEV NAME(LOC) 3E.I; GLUCOSE,POINT OF CARE 125 MG/DL (70-110)
[2018-07-09] MEDS: ASPIRIN 81 MG CHEWABLE TABLET PO SCH (08:23)
[2018-07-09] MEDS: DIVALPROEX SODIUM 500 MG DR TABLET PO SCH ×2 (08:24→17:35)
[2018-07-09] MEDS: OXYBUTYNIN CHLORIDE 5 MG ER TABLET PO SCH (08:24)
[2018-07-09] MEDS: LORATADINE 10 MG TABLET PO SCH (08:24)
[2018-07-09] MEDS: QUEtiapine FUMARATE 200 MG TABLET PO SCH ×2 (08:25→21:27)
[2018-07-09] MEDS: MULTIVITAMINS WITH MINERALS, THERAPEUTIC TABLET PO SCH (08:25)
[2018-07-09] MEDS: ASCORBIC ACID 500 MG TABLET PO SCH (08:26)
[2018-07-09] MEDS: TOPIRAMATE 100 MG TABLET PO SCH ×3 (08:26→17:35)
[2018-07-09] MEDS: BENAZEPRIL HCL 5 MG TABLET PO SCH (08:26)
[2018-07-09] MEDS: SIMVASTATIN 20 MG TABLET PO SCH (08:27)
[2018-07-09] MEDS: HALOPERIDOL 5 MG TABLET PO PRN (08:27)
[2018-07-09] MEDS: LevETIRAcetam 250 MG TABLET PO SCH ×2 (09:24→17:35)
[2018-07-09 10:19] VITALS: BP 128/100
[2018-07-09] MEDS: CHLORHEXIDINE GLUCONATE 4% 118 ML TOPICAL LIQUID TP SCH (11:02)
[2018-07-09 16:19] LABS: GLUCOMETER DEV NAME(LOC) 3EX.; GLUCOSE,POINT OF CARE 141 MG/DL (70-110)
[2018-07-09 16:25] VITALS: BP 135/84
[2018-07-09] MEDS: INSULIN LISPRO 100 UNITS/ML SQ PRN ×2 (17:36→21:50)
[2018-07-09 22:15] LABS: GLUCOMETER DEV NAME(LOC) 3EX.; GLUCOSE,POINT OF CARE 250 MG/DL (70-110)
[2018-07-10 06:14] LABS: GLUCOMETER DEV NAME(LOC) 3EX.; GLUCOSE,POINT OF CARE 153 MG/DL (70-110)
[2018-07-10] MEDS: FERROUS SULFATE 325 MG EC TABLET PO SCH ×2 (06:38→17:26)
[2018-07-10] MEDS: MetFORMIN HCL 500 MG TABLET PO SCH ×2 (06:38→17:26)
[2018-07-10] MEDS: LEVOTHYROXINE SODIUM 50 MCG TABLET PO SCH (06:38)
[2018-07-10] MEDS: INSULIN LISPRO 100 UNITS/ML SQ PRN ×2 (06:39→21:17)
[2018-07-10 08:00] VITALS: BP 134/94
[2018-07-10] MEDS: ASCORBIC ACID 500 MG TABLET PO SCH (08:39)
[2018-07-10] MEDS: ASPIRIN 81 MG CHEWABLE TABLET PO SCH (08:39)
[2018-07-10] MEDS: DIVALPROEX SODIUM 500 MG DR TABLET PO SCH ×2 (08:39→17:26)
[2018-07-10] MEDS: OXYBUTYNIN CHLORIDE 5 MG ER TABLET PO SCH (08:39)
[2018-07-10] MEDS: MULTIVITAMINS WITH MINERALS, THERAPEUTIC TABLET PO SCH (08:39)
[2018-07-10] MEDS: LORATADINE 10 MG TABLET PO SCH (08:39)
[2018-07-10] MEDS: HALOPERIDOL 5 MG TABLET PO PRN (08:40)
[2018-07-10] MEDS: TOPIRAMATE 100 MG TABLET PO SCH ×3 (08:40→17:26)
[2018-07-10] MEDS: LevETIRAcetam 250 MG TABLET PO SCH ×2 (08:40→17:26)
[2018-07-10] MEDS: BENAZEPRIL HCL 5 MG TABLET PO SCH (08:40)
[2018-07-10] MEDS: SIMVASTATIN 20 MG TABLET PO SCH (08:40)
[2018-07-10] MEDS: QUEtiapine FUMARATE 200 MG TABLET PO SCH ×2 (08:40→20:12)
[2018-07-10] MEDS: DOCUSATE SODIUM 100 MG CAPSULE PO PRN (09:17)
[2018-07-10] MEDS: CHLORHEXIDINE GLUCONATE 4% 118 ML TOPICAL LIQUID TP SCH (09:18)
[2018-07-10 17:44] LABS: GLUCOMETER DEV NAME(LOC) 3EX.; GLUCOSE,POINT OF CARE 128 MG/DL (70-110)
[2018-07-10 17:47] VITALS: BP 129/81
[2018-07-10 20:49] LABS: GLUCOMETER DEV NAME(LOC) 3EX.; GLUCOSE,POINT OF CARE 216 MG/DL (70-110)
[2018-07-11 06:15] LABS: GLUCOMETER DEV NAME(LOC) 3EX.; GLUCOSE,POINT OF CARE 131 MG/DL (70-110)
[2018-07-11] MEDS: LEVOTHYROXINE SODIUM 50 MCG TABLET PO SCH (06:34)
[2018-07-11] MEDS: MetFORMIN HCL 500 MG TABLET PO SCH ×2 (06:34→17:14)
[2018-07-11] MEDS: FERROUS SULFATE 325 MG EC TABLET PO SCH ×2 (06:34→17:14)
[2018-07-11 08:10] VITALS: BP 144/95
[2018-07-11] MEDS: CHLORHEXIDINE GLUCONATE 4% 118 ML TOPICAL LIQUID TP SCH (09:05)
[2018-07-11] MEDS: BENAZEPRIL HCL 5 MG TABLET PO SCH (09:05)
[2018-07-11] MEDS: LORATADINE 10 MG TABLET PO SCH (09:06)
[2018-07-11] MEDS: ASPIRIN 81 MG CHEWABLE TABLET PO SCH (09:06)
[2018-07-11] MEDS: LevETIRAcetam 250 MG TABLET PO SCH ×2 (09:06→17:15)
[2018-07-11] MEDS: QUEtiapine FUMARATE 200 MG TABLET PO SCH ×2 (09:06→20:22)
[2018-07-11] MEDS: SIMVASTATIN 20 MG TABLET PO SCH (09:06)
[2018-07-11] MEDS: DIVALPROEX SODIUM 500 MG DR TABLET PO SCH ×2 (09:06→17:15)
[2018-07-11] MEDS: ASCORBIC ACID 500 MG TABLET PO SCH (09:06)
[2018-07-11] MEDS: TOPIRAMATE 100 MG TABLET PO SCH ×3 (09:07→17:15)
[2018-07-11] MEDS: MULTIVITAMINS WITH MINERALS, THERAPEUTIC TABLET PO SCH (09:07)
[2018-07-11] MEDS: OXYBUTYNIN CHLORIDE 5 MG ER TABLET PO SCH (09:07)
[2018-07-11 12:35] LABS: GLUCOMETER DEV NAME(LOC) 3EX.; GLUCOSE,POINT OF CARE 178 MG/DL (70-110)
[2018-07-11] MEDS: INSULIN LISPRO 100 UNITS/ML SQ PRN ×3 (13:27→21:35)
[2018-07-11 16:18] VITALS: BP 133/78
[2018-07-12] MEDS: MetFORMIN HCL 500 MG TABLET PO SCH ×2 (06:57→19:13)
[2018-07-12] MEDS: LEVOTHYROXINE SODIUM 50 MCG TABLET PO SCH (06:57)
[2018-07-12] MEDS: FERROUS SULFATE 325 MG EC TABLET PO SCH ×2 (06:57→19:13)
[2018-07-12] MEDS: INSULIN LISPRO 100 UNITS/ML SQ PRN ×2 (07:00→21:18)
[2018-07-12] MEDS: HALOPERIDOL 5 MG TABLET PO PRN (07:36)
[2018-07-12 08:02] VITALS: BP 117/79
[2018-07-12] MEDS: OXYBUTYNIN CHLORIDE 5 MG ER TABLET PO SCH (08:19)
[2018-07-12] MEDS: QUEtiapine FUMARATE 200 MG TABLET PO SCH ×2 (08:19→20:47)
[2018-07-12] MEDS: MULTIVITAMINS WITH MINERALS, THERAPEUTIC TABLET PO SCH (08:19)
[2018-07-12] MEDS: DIVALPROEX SODIUM 500 MG DR TABLET PO SCH ×2 (08:19→19:13)
[2018-07-12] MEDS: BENAZEPRIL HCL 5 MG TABLET PO SCH (08:19)
[2018-07-12] MEDS: LevETIRAcetam 250 MG TABLET PO SCH ×2 (08:19→19:13)
[2018-07-12] MEDS: TOPIRAMATE 100 MG TABLET PO SCH ×3 (08:19→19:13)
[2018-07-12] MEDS: ASPIRIN 81 MG CHEWABLE TABLET PO SCH (08:20)
[2018-07-12] MEDS: LORATADINE 10 MG TABLET PO SCH (08:20)
[2018-07-12] MEDS: ASCORBIC ACID 500 MG TABLET PO SCH (08:20)
[2018-07-12] MEDS: SIMVASTATIN 20 MG TABLET PO SCH (08:21)
[2018-07-12] MEDS ORDERED: LORazepam 2 MG/ML VIAL ONE (09:44)
[2018-07-12] MEDS ORDERED: LORazepam 2 MG/ML VIAL IM ONE (09:45)
[2018-07-12] MEDS ORDERED: DiphenhydrAMINE HCL 50 MG/ML VIAL ONE (09:45)
[2018-07-12] MEDS ORDERED: HALOPERIDOL LACTATE 5 MG/ML VIAL ONE (09:45)
[2018-07-12] MEDS ORDERED: HALOPERIDOL LACTATE 5 MG/ML VIAL IM ONE (09:45)
[2018-07-12] MEDS ORDERED: DiphenhydrAMINE HCL 50 MG/ML VIAL IM ONE (09:45)
[2018-07-12] MEDS: CHLORHEXIDINE GLUCONATE 4% 118 ML TOPICAL LIQUID TP SCH (12:29)
[2018-07-12 13:59] LABS: GLUCOMETER DEV NAME(LOC) 3EX.; GLUCOSE,POINT OF CARE 189 MG/DL (70-110)
[2018-07-12 14:00] LABS: GLUCOMETER DEV NAME(LOC) 3EX.; GLUCOSE,POINT OF CARE 174 MG/DL (70-110)
[2018-07-12 14:01] LABS: GLUCOMETER DEV NAME(LOC) 3EX.; GLUCOSE,POINT OF CARE 96 MG/DL (70-110)
[2018-07-12 14:02] LABS: GLUCOMETER DEV NAME(LOC) 3EX.; GLUCOSE,POINT OF CARE 117 MG/DL (70-110)
[2018-07-12 19:55] VITALS: BP 122/80
[2018-07-13] MEDS: MetFORMIN HCL 500 MG TABLET PO SCH ×2 (06:49→17:39)
[2018-07-13] MEDS: LEVOTHYROXINE SODIUM 50 MCG TABLET PO SCH (06:49)
[2018-07-13] MEDS: FERROUS SULFATE 325 MG EC TABLET PO SCH ×2 (06:50→17:39)
[2018-07-13] MEDS: INSULIN LISPRO 100 UNITS/ML SQ PRN ×4 (06:50→21:22)
[2018-07-13] MEDS: QUEtiapine FUMARATE 200 MG TABLET PO SCH ×2 (08:25→20:42)
[2018-07-13] MEDS: MULTIVITAMINS WITH MINERALS, THERAPEUTIC TABLET PO SCH (08:25)
[2018-07-13] MEDS: DIVALPROEX SODIUM 500 MG DR TABLET PO SCH ×2 (08:26→17:39)
[2018-07-13] MEDS: LORATADINE 10 MG TABLET PO SCH (08:26)
[2018-07-13] MEDS: SIMVASTATIN 20 MG TABLET PO SCH (08:26)
[2018-07-13] MEDS: BENAZEPRIL HCL 5 MG TABLET PO SCH (08:26)
[2018-07-13] MEDS: TOPIRAMATE 100 MG TABLET PO SCH ×3 (08:26→17:39)
[2018-07-13] MEDS: ASCORBIC ACID 500 MG TABLET PO SCH (08:26)
[2018-07-13] MEDS: ASPIRIN 81 MG CHEWABLE TABLET PO SCH (08:26)
[2018-07-13] MEDS: OXYBUTYNIN CHLORIDE 5 MG ER TABLET PO SCH (08:26)
[2018-07-13] MEDS: LevETIRAcetam 250 MG TABLET PO SCH ×2 (08:26→17:39)
[2018-07-13] MEDS: CHLORHEXIDINE GLUCONATE 4% 118 ML TOPICAL LIQUID TP SCH (08:27)
[2018-07-13] MEDS: HALOPERIDOL 5 MG TABLET PO PRN (08:28)
[2018-07-13 08:51] LABS: GLUCOMETER DEV NAME(LOC) 3EX.; GLUCOSE,POINT OF CARE 221 MG/DL (70-110)
[2018-07-13 08:52] LABS: GLUCOMETER DEV NAME(LOC) 3EX.; GLUCOSE,POINT OF CARE 118 MG/DL (70-110)
[2018-07-13 08:56] LABS: GLUCOMETER DEV NAME(LOC) 3EX.; GLUCOSE,POINT OF CARE 144 MG/DL (70-110)
[2018-07-13 09:56] VITALS: BP 108/75
[2018-07-13 11:18] LABS: GLUCOMETER DEV NAME(LOC) 3EX.; GLUCOSE,POINT OF CARE 170 MG/DL (70-110)
[2018-07-13 17:35] VITALS: BP 118/74
[2018-07-13 18:59] LABS: GLUCOMETER DEV NAME(LOC) 3EX.; GLUCOSE,POINT OF CARE 151 MG/DL (70-110)
[2018-07-13 21:49] LABS: GLUCOMETER DEV NAME(LOC) 3EX.; GLUCOSE,POINT OF CARE 145 MG/DL (70-110)
[2018-07-14 06:24] LABS: GLUCOMETER DEV NAME(LOC) 3EX.; GLUCOSE,POINT OF CARE 212 MG/DL (70-110)
[2018-07-14] MEDS: INSULIN LISPRO 100 UNITS/ML SQ PRN ×3 (06:49→17:20)
[2018-07-14] MEDS: LEVOTHYROXINE SODIUM 50 MCG TABLET PO SCH (06:50)
[2018-07-14] MEDS: MetFORMIN HCL 500 MG TABLET PO SCH ×2 (06:51→17:57)
[2018-07-14] MEDS: FERROUS SULFATE 325 MG EC TABLET PO SCH ×2 (06:51→17:57)
[2018-07-14] MEDS: TOPIRAMATE 100 MG TABLET PO SCH ×3 (08:37→17:57)
[2018-07-14] MEDS: LevETIRAcetam 250 MG TABLET PO SCH ×2 (08:37→17:57)
[2018-07-14] MEDS: DIVALPROEX SODIUM 500 MG DR TABLET PO SCH ×2 (08:37→17:57)
[2018-07-14] MEDS: BENAZEPRIL HCL 5 MG TABLET PO SCH (08:37)
[2018-07-14] MEDS: ASPIRIN 81 MG CHEWABLE TABLET PO SCH (08:38)
[2018-07-14] MEDS: SIMVASTATIN 20 MG TABLET PO SCH (08:38)
[2018-07-14] MEDS: ASCORBIC ACID 500 MG TABLET PO SCH (08:38)
[2018-07-14] MEDS: LORATADINE 10 MG TABLET PO SCH (08:38)
[2018-07-14] MEDS: QUEtiapine FUMARATE 200 MG TABLET PO SCH ×2 (08:38→20:13)
[2018-07-14] MEDS: CHLORHEXIDINE GLUCONATE 4% 118 ML TOPICAL LIQUID TP SCH (08:38)
[2018-07-14] MEDS: MULTIVITAMINS WITH MINERALS, THERAPEUTIC TABLET PO SCH (08:38)
[2018-07-14] MEDS: OXYBUTYNIN CHLORIDE 5 MG ER TABLET PO SCH (08:38)
[2018-07-14 11:49] LABS: GLUCOMETER DEV NAME(LOC) 3EX.; GLUCOSE,POINT OF CARE 143 MG/DL (70-110)
[2018-07-14] MEDS: HALOPERIDOL 5 MG TABLET PO PRN (12:05)
[2018-07-14 16:29] VITALS: BP 124/78
[2018-07-15] MEDS: FERROUS SULFATE 325 MG EC TABLET PO SCH ×2 (06:39→17:23)
[2018-07-15] MEDS: LEVOTHYROXINE SODIUM 50 MCG TABLET PO SCH (06:39)
[2018-07-15] MEDS: INSULIN LISPRO 100 UNITS/ML SQ PRN ×3 (06:39→17:46)
[2018-07-15] MEDS: MetFORMIN HCL 500 MG TABLET PO SCH ×2 (06:39→17:23)
[2018-07-15] MEDS: DIVALPROEX SODIUM 500 MG DR TABLET PO SCH ×2 (08:37→17:23)
[2018-07-15] MEDS: SIMVASTATIN 20 MG TABLET PO SCH (08:37)
[2018-07-15] MEDS: LevETIRAcetam 250 MG TABLET PO SCH ×2 (08:37→17:23)
[2018-07-15] MEDS: TOPIRAMATE 100 MG TABLET PO SCH ×3 (08:37→17:23)
[2018-07-15] MEDS: ASCORBIC ACID 500 MG TABLET PO SCH (08:37)
[2018-07-15] MEDS: HALOPERIDOL 5 MG TABLET PO PRN (08:38)
[2018-07-15] MEDS: BENAZEPRIL HCL 5 MG TABLET PO SCH (08:38)
[2018-07-15] MEDS: OXYBUTYNIN CHLORIDE 5 MG ER TABLET PO SCH (08:38)
[2018-07-15] MEDS: ASPIRIN 81 MG CHEWABLE TABLET PO SCH (08:38)
[2018-07-15] MEDS: LORATADINE 10 MG TABLET PO SCH (08:38)
[2018-07-15] MEDS: MULTIVITAMINS WITH MINERALS, THERAPEUTIC TABLET PO SCH (08:38)
[2018-07-15] MEDS: QUEtiapine FUMARATE 200 MG TABLET PO SCH ×2 (08:38→21:47)
[2018-07-15] MEDS: CHLORHEXIDINE GLUCONATE 4% 118 ML TOPICAL LIQUID TP SCH (09:29)
[2018-07-15 10:48] LABS: GLUCOMETER DEV NAME(LOC) 3EX.; GLUCOSE,POINT OF CARE 99 MG/DL (70-110)
[2018-07-15 10:48] LABS: GLUCOMETER DEV NAME(LOC) 3EX.; GLUCOSE,POINT OF CARE 140 MG/DL (70-110)
[2018-07-15 10:50] LABS: GLUCOMETER DEV NAME(LOC) 3EX.; GLUCOSE,POINT OF CARE 176 MG/DL (70-110)
[2018-07-15 16:02] VITALS: BP 119/82
[2018-07-15 17:37] LABS: GLUCOMETER DEV NAME(LOC) 3EX.; GLUCOSE,POINT OF CARE 150 MG/DL (70-110)
[2018-07-15 17:40] LABS: GLUCOMETER DEV NAME(LOC) 3EX.; GLUCOSE,POINT OF CARE 181 MG/DL (70-110)
[2018-07-16 05:24] LABS: GLUCOMETER DEV NAME(LOC) 3EX.; GLUCOSE,POINT OF CARE 94 MG/DL (70-110)
[2018-07-16] MEDS: MetFORMIN HCL 500 MG TABLET PO SCH ×2 (06:56→17:11)
[2018-07-16] MEDS: LEVOTHYROXINE SODIUM 50 MCG TABLET PO SCH (06:56)
[2018-07-16] MEDS: FERROUS SULFATE 325 MG EC TABLET PO SCH ×2 (06:56→17:13)
[2018-07-16] MEDS: INSULIN LISPRO 100 UNITS/ML SQ PRN ×2 (07:08→22:16)
[2018-07-16] MEDS: BENAZEPRIL HCL 5 MG TABLET PO SCH (08:09)
[2018-07-16] MEDS: HALOPERIDOL 5 MG TABLET PO PRN (08:09)
[2018-07-16] MEDS: DIVALPROEX SODIUM 500 MG DR TABLET PO SCH ×2 (08:09→17:11)
[2018-07-16] MEDS: SIMVASTATIN 20 MG TABLET PO SCH (08:09)
[2018-07-16] MEDS: LevETIRAcetam 250 MG TABLET PO SCH ×2 (08:09→17:11)
[2018-07-16] MEDS: OXYBUTYNIN CHLORIDE 5 MG ER TABLET PO SCH (08:09)
[2018-07-16] MEDS: QUEtiapine FUMARATE 200 MG TABLET PO SCH ×2 (08:09→21:02)
[2018-07-16] MEDS: TOPIRAMATE 100 MG TABLET PO SCH ×3 (08:09→17:11)
[2018-07-16] MEDS: LORATADINE 10 MG TABLET PO SCH (08:10)
[2018-07-16] MEDS: ASCORBIC ACID 500 MG TABLET PO SCH (08:10)
[2018-07-16] MEDS: ASPIRIN 81 MG CHEWABLE TABLET PO SCH (08:10)
[2018-07-16] MEDS: MULTIVITAMINS WITH MINERALS, THERAPEUTIC TABLET PO SCH (08:10)
[2018-07-16] MEDS: CHLORHEXIDINE GLUCONATE 4% 118 ML TOPICAL LIQUID TP SCH (09:00)
[2018-07-16 10:30] VITALS: BP 121/71
[2018-07-16 17:30] LABS: GLUCOMETER DEV NAME(LOC) 3EX.; GLUCOSE,POINT OF CARE 138 MG/DL (70-110)
[2018-07-16 22:19] LABS: GLUCOMETER DEV NAME(LOC) 3EX.; GLUCOSE,POINT OF CARE 145 MG/DL (70-110)
[2018-07-17 05:34] LABS: GLUCOMETER DEV NAME(LOC) 3EX.; GLUCOSE,POINT OF CARE 105 MG/DL (70-110)
[2018-07-17] MEDS: FERROUS SULFATE 325 MG EC TABLET PO SCH ×2 (06:37→17:17)
[2018-07-17] MEDS: MetFORMIN HCL 500 MG TABLET PO SCH ×2 (06:37→17:18)
[2018-07-17] MEDS: LEVOTHYROXINE SODIUM 50 MCG TABLET PO SCH (06:37)
[2018-07-17] MEDS: HALOPERIDOL 5 MG TABLET PO PRN ×2 (08:15→12:48)
[2018-07-17] MEDS: SIMVASTATIN 20 MG TABLET PO SCH (08:15)
[2018-07-17] MEDS: ASPIRIN 81 MG CHEWABLE TABLET PO SCH (08:16)
[2018-07-17] MEDS: LORATADINE 10 MG TABLET PO SCH (08:16)
[2018-07-17] MEDS: ASCORBIC ACID 500 MG TABLET PO SCH (08:16)
[2018-07-17] MEDS: BENAZEPRIL HCL 5 MG TABLET PO SCH (08:16)
[2018-07-17] MEDS: LevETIRAcetam 250 MG TABLET PO SCH ×2 (08:16→17:18)
[2018-07-17] MEDS: DIVALPROEX SODIUM 500 MG DR TABLET PO SCH ×2 (08:16→17:17)
[2018-07-17] MEDS: OXYBUTYNIN CHLORIDE 5 MG ER TABLET PO SCH (08:16)
[2018-07-17] MEDS: MULTIVITAMINS WITH MINERALS, THERAPEUTIC TABLET PO SCH (08:16)
[2018-07-17] MEDS: QUEtiapine FUMARATE 200 MG TABLET PO SCH ×2 (08:18→20:14)
[2018-07-17] MEDS: TOPIRAMATE 100 MG TABLET PO SCH ×3 (08:19→17:18)
[2018-07-17] MEDS: CHLORHEXIDINE GLUCONATE 4% 118 ML TOPICAL LIQUID TP SCH (10:30)
[2018-07-17] MEDS: INSULIN LISPRO 100 UNITS/ML SQ PRN (11:34)
[2018-07-17 11:35] LABS: GLUCOMETER DEV NAME(LOC) 3EX.; GLUCOSE,POINT OF CARE 184 MG/DL (70-110)
[2018-07-17 16:05] VITALS: BP 119/71
[2018-07-17 17:29] LABS: GLUCOMETER DEV NAME(LOC) 3EX.; GLUCOSE,POINT OF CARE 105 MG/DL (70-110)
[2018-07-18 03:10] VITALS: BP 105/73
[2018-07-18 05:55] LABS: GLUCOMETER DEV NAME(LOC) 3EX.; GLUCOSE,POINT OF CARE 226 MG/DL (70-110)
[2018-07-18] MEDS: LEVOTHYROXINE SODIUM 50 MCG TABLET PO SCH (07:00)
[2018-07-18] MEDS: FERROUS SULFATE 325 MG EC TABLET PO SCH ×2 (07:03→16:54)
[2018-07-18] MEDS: MetFORMIN HCL 500 MG TABLET PO SCH ×2 (07:03→17:29)
[2018-07-18] MEDS: INSULIN LISPRO 100 UNITS/ML SQ PRN ×3 (07:21→17:30)
[2018-07-18 08:07] VITALS: BP 107/59
[2018-07-18] MEDS: LORATADINE 10 MG TABLET PO SCH (10:48)
[2018-07-18] MEDS: DIVALPROEX SODIUM 500 MG DR TABLET PO SCH ×2 (10:48→16:54)
[2018-07-18] MEDS: TOPIRAMATE 100 MG TABLET PO SCH ×3 (10:48→16:54)
[2018-07-18] MEDS: QUEtiapine FUMARATE 200 MG TABLET PO SCH ×2 (10:48→21:36)
[2018-07-18] MEDS: ASPIRIN 81 MG CHEWABLE TABLET PO SCH (10:49)
[2018-07-18] MEDS: ASCORBIC ACID 500 MG TABLET PO SCH (10:49)
[2018-07-18] MEDS: SIMVASTATIN 20 MG TABLET PO SCH (10:49)
[2018-07-18] MEDS: BENAZEPRIL HCL 5 MG TABLET PO SCH (10:49)
[2018-07-18] MEDS: MULTIVITAMINS WITH MINERALS, THERAPEUTIC TABLET PO SCH (10:49)
[2018-07-18] MEDS: LevETIRAcetam 250 MG TABLET PO SCH ×2 (10:49→16:54)
[2018-07-18] MEDS: OXYBUTYNIN CHLORIDE 5 MG ER TABLET PO SCH (10:49)
[2018-07-18] MEDS: HALOPERIDOL 5 MG TABLET PO PRN (10:49)
[2018-07-18] MEDS: CHLORHEXIDINE GLUCONATE 4% 118 ML TOPICAL LIQUID TP SCH (10:51)
[2018-07-18 11:40] LABS: GLUCOMETER DEV NAME(LOC) 3EX.; GLUCOSE,POINT OF CARE 147 MG/DL (70-110)
[2018-07-18 16:08] VITALS: BP 115/82
[2018-07-18 17:10] LABS: GLUCOMETER DEV NAME(LOC) 3EX.; GLUCOSE,POINT OF CARE 160 MG/DL (70-110)
[2018-07-19 06:04] LABS: GLUCOMETER DEV NAME(LOC) 3EX.; GLUCOSE,POINT OF CARE 113 MG/DL (70-110)
[2018-07-19] MEDS: FERROUS SULFATE 325 MG EC TABLET PO SCH ×2 (07:19→17:02)
[2018-07-19] MEDS: MetFORMIN HCL 500 MG TABLET PO SCH ×2 (07:20→17:02)
[2018-07-19] MEDS: LEVOTHYROXINE SODIUM 50 MCG TABLET PO SCH (07:20)
[2018-07-19] MEDS: ASPIRIN 81 MG CHEWABLE TABLET PO SCH (09:00)
[2018-07-19] MEDS: LORATADINE 10 MG TABLET PO SCH (09:00)
[2018-07-19] MEDS: MULTIVITAMINS WITH MINERALS, THERAPEUTIC TABLET PO SCH (09:00)
[2018-07-19] MEDS: HALOPERIDOL 5 MG TABLET PO PRN (09:00)
[2018-07-19] MEDS: SIMVASTATIN 20 MG TABLET PO SCH (09:00)
[2018-07-19] MEDS: ASCORBIC ACID 500 MG TABLET PO SCH (09:01)
[2018-07-19] MEDS: OXYBUTYNIN CHLORIDE 5 MG ER TABLET PO SCH (09:01)
[2018-07-19] MEDS: TOPIRAMATE 100 MG TABLET PO SCH ×3 (09:01→17:02)
[2018-07-19] MEDS: BENAZEPRIL HCL 5 MG TABLET PO SCH (09:01)
[2018-07-19] MEDS: LevETIRAcetam 250 MG TABLET PO SCH ×2 (09:01→17:02)
[2018-07-19] MEDS: DIVALPROEX SODIUM 500 MG DR TABLET PO SCH ×2 (09:01→17:02)
[2018-07-19] MEDS: QUEtiapine FUMARATE 200 MG TABLET PO SCH ×2 (09:03→21:04)
[2018-07-19] MEDS: CHLORHEXIDINE GLUCONATE 4% 118 ML TOPICAL LIQUID TP SCH (09:07)
[2018-07-19 09:18] VITALS: BP 116/70
[2018-07-19 11:20] LABS: GLUCOMETER DEV NAME(LOC) 3EX.; GLUCOSE,POINT OF CARE 184 MG/DL (70-110)
[2018-07-19] MEDS: INSULIN LISPRO 100 UNITS/ML SQ PRN ×2 (12:33→17:34)
[2018-07-19 16:52] VITALS: BP 115/78
[2018-07-19 17:19] LABS: GLUCOMETER DEV NAME(LOC) 3EX.; GLUCOSE,POINT OF CARE 153 MG/DL (70-110)
[2018-07-20 05:39] LABS: GLUCOMETER DEV NAME(LOC) 3EX.; GLUCOSE,POINT OF CARE 121 MG/DL (70-110)
[2018-07-20] MEDS: MetFORMIN HCL 500 MG TABLET PO SCH ×2 (07:04→16:42)
[2018-07-20] MEDS: LEVOTHYROXINE SODIUM 50 MCG TABLET PO SCH (07:04)
[2018-07-20] MEDS: FERROUS SULFATE 325 MG EC TABLET PO SCH ×2 (07:04→16:42)
[2018-07-20] MEDS: INSULIN LISPRO 100 UNITS/ML SQ PRN ×3 (07:15→20:37)
[2018-07-20] MEDS: LORATADINE 10 MG TABLET PO SCH (08:11)
[2018-07-20] MEDS: ASCORBIC ACID 500 MG TABLET PO SCH (08:12)
[2018-07-20] MEDS: BENAZEPRIL HCL 5 MG TABLET PO SCH (08:12)
[2018-07-20] MEDS: TOPIRAMATE 100 MG TABLET PO SCH ×3 (08:12→16:42)
[2018-07-20] MEDS: SIMVASTATIN 20 MG TABLET PO SCH (08:12)
[2018-07-20] MEDS: ASPIRIN 81 MG CHEWABLE TABLET PO SCH (08:12)
[2018-07-20] MEDS: LevETIRAcetam 250 MG TABLET PO SCH ×2 (08:12→16:42)
[2018-07-20] MEDS: OXYBUTYNIN CHLORIDE 5 MG ER TABLET PO SCH (08:12)
[2018-07-20] MEDS: DIVALPROEX SODIUM 500 MG DR TABLET PO SCH ×2 (08:12→16:42)
[2018-07-20] MEDS: MULTIVITAMINS WITH MINERALS, THERAPEUTIC TABLET PO SCH (08:13)
[2018-07-20] MEDS: QUEtiapine FUMARATE 200 MG TABLET PO SCH ×2 (08:13→20:08)
[2018-07-20 09:18] VITALS: BP 116/70
[2018-07-20] MEDS: CHLORHEXIDINE GLUCONATE 4% 118 ML TOPICAL LIQUID TP SCH (09:18)
[2018-07-20 11:29] LABS: GLUCOMETER DEV NAME(LOC) 3EX.; GLUCOSE,POINT OF CARE 164 MG/DL (70-110)
[2018-07-20 16:08] LABS: GLUCOMETER DEV NAME(LOC) 3EX.; GLUCOSE,POINT OF CARE 125 MG/DL (70-110)
[2018-07-20 16:43] VITALS: BP 129/78
[2018-07-20 20:09] LABS: GLUCOMETER DEV NAME(LOC) 3EX.; GLUCOSE,POINT OF CARE 157 MG/DL (70-110)
[2018-07-21 05:30] LABS: GLUCOMETER DEV NAME(LOC) 3EX.; GLUCOSE,POINT OF CARE 209 MG/DL (70-110)
[2018-07-21] MEDS: MetFORMIN HCL 500 MG TABLET PO SCH ×2 (06:57→17:00)
[2018-07-21] MEDS: LEVOTHYROXINE SODIUM 50 MCG TABLET PO SCH (06:57)
[2018-07-21] MEDS: FERROUS SULFATE 325 MG EC TABLET PO SCH ×2 (06:57→17:00)
[2018-07-21] MEDS: INSULIN LISPRO 100 UNITS/ML SQ PRN ×3 (07:03→21:11)
[2018-07-21] MEDS: ASCORBIC ACID 500 MG TABLET PO SCH (08:03)
[2018-07-21] MEDS: SIMVASTATIN 20 MG TABLET PO SCH (08:05)
[2018-07-21] MEDS: TOPIRAMATE 100 MG TABLET PO SCH ×3 (08:05→16:15)
[2018-07-21] MEDS: DIVALPROEX SODIUM 500 MG DR TABLET PO SCH ×2 (08:05→16:15)
[2018-07-21] MEDS: OXYBUTYNIN CHLORIDE 5 MG ER TABLET PO SCH (08:05)
[2018-07-21] MEDS: ASPIRIN 81 MG CHEWABLE TABLET PO SCH (08:05)
[2018-07-21] MEDS: LORATADINE 10 MG TABLET PO SCH (08:05)
[2018-07-21] MEDS: BENAZEPRIL HCL 5 MG TABLET PO SCH (08:05)
[2018-07-21] MEDS: LevETIRAcetam 250 MG TABLET PO SCH ×2 (08:05→16:15)
[2018-07-21] MEDS: QUEtiapine FUMARATE 200 MG TABLET PO SCH ×2 (08:06→20:26)
[2018-07-21] MEDS: MULTIVITAMINS WITH MINERALS, THERAPEUTIC TABLET PO SCH (08:07)
[2018-07-21] MEDS: CHLORHEXIDINE GLUCONATE 4% 118 ML TOPICAL LIQUID TP SCH (09:15)
[2018-07-21 16:19] LABS: GLUCOMETER DEV NAME(LOC) 3EX.; GLUCOSE,POINT OF CARE 223 MG/DL (70-110)
[2018-07-21 16:49] VITALS: BP 130/78
[2018-07-21 21:19] LABS: GLUCOMETER DEV NAME(LOC) 3EX.; GLUCOSE,POINT OF CARE 188 MG/DL (70-110)
[2018-07-22 02:50] VITALS: BP 123/93
[2018-07-22] MEDS: INSULIN LISPRO 100 UNITS/ML SQ PRN ×2 (06:53→17:28)
[2018-07-22] MEDS: LEVOTHYROXINE SODIUM 50 MCG TABLET PO SCH (06:54)
[2018-07-22] MEDS: MetFORMIN HCL 500 MG TABLET PO SCH ×2 (06:54→17:25)
[2018-07-22] MEDS: FERROUS SULFATE 325 MG EC TABLET PO SCH ×2 (06:54→17:25)
[2018-07-22 08:09] VITALS: BP 121/68
[2018-07-22] MEDS: QUEtiapine FUMARATE 200 MG TABLET PO SCH ×2 (08:21→20:07)
[2018-07-22] MEDS: DIVALPROEX SODIUM 500 MG DR TABLET PO SCH ×2 (08:22→17:24)
[2018-07-22] MEDS: LevETIRAcetam 250 MG TABLET PO SCH ×2 (08:22→17:24)
[2018-07-22] MEDS: SIMVASTATIN 20 MG TABLET PO SCH (08:22)
[2018-07-22] MEDS: TOPIRAMATE 100 MG TABLET PO SCH ×3 (08:22→17:25)
[2018-07-22] MEDS: ASCORBIC ACID 500 MG TABLET PO SCH (08:22)
[2018-07-22] MEDS: MULTIVITAMINS WITH MINERALS, THERAPEUTIC TABLET PO SCH (08:22)
[2018-07-22] MEDS: ASPIRIN 81 MG CHEWABLE TABLET PO SCH (08:23)
[2018-07-22] MEDS: BENAZEPRIL HCL 5 MG TABLET PO SCH (08:23)
[2018-07-22] MEDS: OXYBUTYNIN CHLORIDE 5 MG ER TABLET PO SCH (08:23)
[2018-07-22] MEDS: LORATADINE 10 MG TABLET PO SCH (08:25)
[2018-07-22] MEDS: CHLORHEXIDINE GLUCONATE 4% 118 ML TOPICAL LIQUID TP SCH (09:00)
[2018-07-22 10:41] VITALS: BP 121/68
[2018-07-22 17:05] LABS: GLUCOMETER DEV NAME(LOC) 3EX.; GLUCOSE,POINT OF CARE 161 MG/DL (70-110)
[2018-07-22 17:48] VITALS: BP 123/72
[2018-07-22 22:09] LABS: GLUCOMETER DEV NAME(LOC) 3EX.; GLUCOSE,POINT OF CARE 169 MG/DL (70-110)
[2018-07-23 05:35] LABS: GLUCOMETER DEV NAME(LOC) 3EX.; GLUCOSE,POINT OF CARE 130 MG/DL (70-110)
[2018-07-23] MEDS: FERROUS SULFATE 325 MG EC TABLET PO SCH ×2 (06:34→17:39)
[2018-07-23] MEDS: LEVOTHYROXINE SODIUM 50 MCG TABLET PO SCH (06:34)
[2018-07-23] MEDS: MetFORMIN HCL 500 MG TABLET PO SCH ×2 (06:34→17:39)
[2018-07-23 08:11] VITALS: BP 128/90
[2018-07-23] MEDS: BENAZEPRIL HCL 5 MG TABLET PO SCH (08:27)
[2018-07-23] MEDS: LORATADINE 10 MG TABLET PO SCH (08:28)
[2018-07-23] MEDS: ASPIRIN 81 MG CHEWABLE TABLET PO SCH (08:28)
[2018-07-23] MEDS: DIVALPROEX SODIUM 500 MG DR TABLET PO SCH ×2 (08:28→17:39)
[2018-07-23] MEDS: SIMVASTATIN 20 MG TABLET PO SCH (08:28)
[2018-07-23] MEDS: LevETIRAcetam 250 MG TABLET PO SCH ×2 (08:29→17:39)
[2018-07-23] MEDS: OXYBUTYNIN CHLORIDE 5 MG ER TABLET PO SCH (08:29)
[2018-07-23] MEDS: ASCORBIC ACID 500 MG TABLET PO SCH (08:29)
[2018-07-23] MEDS: TOPIRAMATE 100 MG TABLET PO SCH ×3 (08:29→17:39)
[2018-07-23] MEDS: QUEtiapine FUMARATE 200 MG TABLET PO SCH ×2 (08:29→20:35)
[2018-07-23] MEDS: MULTIVITAMINS WITH MINERALS, THERAPEUTIC TABLET PO SCH (08:30)
[2018-07-23] MEDS: CHLORHEXIDINE GLUCONATE 4% 118 ML TOPICAL LIQUID TP SCH (09:00)
[2018-07-23 16:08] VITALS: BP 119/76
[2018-07-23] MEDS: INSULIN LISPRO 100 UNITS/ML SQ PRN ×2 (17:13→21:57)
[2018-07-23 17:20] LABS: GLUCOMETER DEV NAME(LOC) 3EX.; GLUCOSE,POINT OF CARE 186 MG/DL (70-110)
[2018-07-23 22:03] LABS: GLUCOMETER DEV NAME(LOC) 3EX.; GLUCOSE,POINT OF CARE 172 MG/DL (70-110)
[2018-07-24 06:04] LABS: GLUCOMETER DEV NAME(LOC) 3EX.; GLUCOSE,POINT OF CARE 109 MG/DL (70-110)
[2018-07-24] MEDS: MetFORMIN HCL 500 MG TABLET PO SCH ×2 (06:40→17:13)
[2018-07-24] MEDS: FERROUS SULFATE 325 MG EC TABLET PO SCH ×2 (06:40→17:13)
[2018-07-24] MEDS: LEVOTHYROXINE SODIUM 50 MCG TABLET PO SCH (06:40)
[2018-07-24] MEDS: ASPIRIN 81 MG CHEWABLE TABLET PO SCH (08:16)
[2018-07-24] MEDS: ASCORBIC ACID 500 MG TABLET PO SCH (08:17)
[2018-07-24] MEDS: TOPIRAMATE 100 MG TABLET PO SCH ×3 (08:17→17:13)
[2018-07-24] MEDS: SIMVASTATIN 20 MG TABLET PO SCH (08:17)
[2018-07-24] MEDS: LORATADINE 10 MG TABLET PO SCH (08:17)
[2018-07-24] MEDS: BENAZEPRIL HCL 5 MG TABLET PO SCH (08:17)
[2018-07-24] MEDS: OXYBUTYNIN CHLORIDE 5 MG ER TABLET PO SCH (08:17)
[2018-07-24] MEDS: MULTIVITAMINS WITH MINERALS, THERAPEUTIC TABLET PO SCH (08:17)
[2018-07-24] MEDS: QUEtiapine FUMARATE 200 MG TABLET PO SCH ×2 (08:17→20:26)
[2018-07-24] MEDS: DIVALPROEX SODIUM 500 MG DR TABLET PO SCH ×2 (08:18→17:13)
[2018-07-24] MEDS: LevETIRAcetam 250 MG TABLET PO SCH ×2 (08:18→17:13)
[2018-07-24] MEDS: HALOPERIDOL 5 MG TABLET PO PRN (08:19)
[2018-07-24] MEDS: CHLORHEXIDINE GLUCONATE 4% 118 ML TOPICAL LIQUID TP SCH ×2 (09:00→14:30)
[2018-07-24 12:37] VITALS: BP 112/89
[2018-07-24 16:14] VITALS: BP 119/78
[2018-07-24 17:29] LABS: GLUCOMETER DEV NAME(LOC) 3EX.; GLUCOSE,POINT OF CARE 110 MG/DL (70-110)
[2018-07-24] MEDS: INSULIN LISPRO 100 UNITS/ML SQ PRN (21:33)
[2018-07-24 21:45] LABS: GLUCOMETER DEV NAME(LOC) 3EX.; GLUCOSE,POINT OF CARE 173 MG/DL (70-110)
[2018-07-25 05:39] LABS: GLUCOMETER DEV NAME(LOC) 3EX.; GLUCOSE,POINT OF CARE 159 MG/DL (70-110)
[2018-07-25] MEDS: LEVOTHYROXINE SODIUM 50 MCG TABLET PO SCH (06:40)
[2018-07-25] MEDS: FERROUS SULFATE 325 MG EC TABLET PO SCH ×2 (06:40→16:36)
[2018-07-25] MEDS: INSULIN LISPRO 100 UNITS/ML SQ PRN ×3 (06:41→21:10)
[2018-07-25] MEDS: MetFORMIN HCL 500 MG TABLET PO SCH ×2 (06:41→16:36)
[2018-07-25] MEDS: MULTIVITAMINS WITH MINERALS, THERAPEUTIC TABLET PO SCH (07:44)
[2018-07-25] MEDS: QUEtiapine FUMARATE 200 MG TABLET PO SCH ×2 (07:44→20:43)
[2018-07-25] MEDS: SIMVASTATIN 20 MG TABLET PO SCH (07:44)
[2018-07-25] MEDS: LORATADINE 10 MG TABLET PO SCH (07:44)
[2018-07-25] MEDS: DIVALPROEX SODIUM 500 MG DR TABLET PO SCH ×2 (07:44→16:36)
[2018-07-25] MEDS: ASPIRIN 81 MG CHEWABLE TABLET PO SCH (07:45)
[2018-07-25] MEDS: TOPIRAMATE 100 MG TABLET PO SCH ×3 (07:45→16:36)
[2018-07-25] MEDS: LevETIRAcetam 250 MG TABLET PO SCH ×2 (07:45→16:36)
[2018-07-25] MEDS: BENAZEPRIL HCL 5 MG TABLET PO SCH (07:45)
[2018-07-25] MEDS: OXYBUTYNIN CHLORIDE 5 MG ER TABLET PO SCH (07:46)
[2018-07-25] MEDS: ASCORBIC ACID 500 MG TABLET PO SCH (07:46)
[2018-07-25] MEDS: CHLORHEXIDINE GLUCONATE 4% 118 ML TOPICAL LIQUID TP SCH (07:47)
[2018-07-25] MEDS: HALOPERIDOL 5 MG TABLET PO PRN (07:48)
[2018-07-25 08:30] VITALS: BP 112/70
[2018-07-25 11:34] LABS: GLUCOMETER DEV NAME(LOC) 3EX.; GLUCOSE,POINT OF CARE 176 MG/DL (70-110)
[2018-07-25 16:30] VITALS: BP 131/76
[2018-07-25 16:40] LABS: GLUCOMETER DEV NAME(LOC) 3EX.; GLUCOSE,POINT OF CARE 123 MG/DL (70-110)
[2018-07-25 21:14] LABS: GLUCOMETER DEV NAME(LOC) 3EX.; GLUCOSE,POINT OF CARE 181 MG/DL (70-110)
[2018-07-26 05:35] LABS: GLUCOMETER DEV NAME(LOC) 3EX.; GLUCOSE,POINT OF CARE 193 MG/DL (70-110)
[2018-07-26] MEDS: LEVOTHYROXINE SODIUM 50 MCG TABLET PO SCH (06:42)
[2018-07-26] MEDS: MetFORMIN HCL 500 MG TABLET PO SCH ×2 (06:42→16:57)
[2018-07-26] MEDS: FERROUS SULFATE 325 MG EC TABLET PO SCH ×2 (06:42→16:57)
[2018-07-26] MEDS: INSULIN LISPRO 100 UNITS/ML SQ PRN ×2 (06:43→12:49)
[2018-07-26] MEDS: HALOPERIDOL 5 MG TABLET PO PRN (07:40)
[2018-07-26] MEDS: QUEtiapine FUMARATE 200 MG TABLET PO SCH ×2 (07:40→21:24)
[2018-07-26] MEDS: ASPIRIN 81 MG CHEWABLE TABLET PO SCH (07:40)
[2018-07-26] MEDS: LORATADINE 10 MG TABLET PO SCH (07:41)
[2018-07-26] MEDS: SIMVASTATIN 20 MG TABLET PO SCH (07:41)
[2018-07-26] MEDS: MULTIVITAMINS WITH MINERALS, THERAPEUTIC TABLET PO SCH (07:42)
[2018-07-26] MEDS: DIVALPROEX SODIUM 500 MG DR TABLET PO SCH ×2 (07:43→16:57)
[2018-07-26] MEDS: OXYBUTYNIN CHLORIDE 5 MG ER TABLET PO SCH (07:44)
[2018-07-26] MEDS: LevETIRAcetam 250 MG TABLET PO SCH ×2 (07:44→16:57)
[2018-07-26] MEDS: TOPIRAMATE 100 MG TABLET PO SCH ×3 (07:44→16:57)
[2018-07-26] MEDS: ASCORBIC ACID 500 MG TABLET PO SCH (07:45)
[2018-07-26] MEDS: BENAZEPRIL HCL 5 MG TABLET PO SCH (07:45)
[2018-07-26] MEDS: CHLORHEXIDINE GLUCONATE 4% 118 ML TOPICAL LIQUID TP SCH (07:46)
[2018-07-26] MEDS: FLUoxetine HCL 20 MG CAPSULE PO SCH (07:46)
[2018-07-26 08:00] VITALS: BP 136/75
[2018-07-26 11:54] LABS: GLUCOMETER DEV NAME(LOC) 3EX.; GLUCOSE,POINT OF CARE 190 MG/DL (70-110)
[2018-07-26 16:23] VITALS: BP 108/80
[2018-07-26 17:14] LABS: GLUCOMETER DEV NAME(LOC) 3EX.; GLUCOSE,POINT OF CARE 172 MG/DL (70-110)
[2018-07-27 04:00] VITALS: BP 110/78
[2018-07-27 06:09] LABS: GLUCOMETER DEV NAME(LOC) 3EX.; GLUCOSE,POINT OF CARE 146 MG/DL (70-110)
[2018-07-27] MEDS: FERROUS SULFATE 325 MG EC TABLET PO SCH ×2 (06:37→16:42)
[2018-07-27] MEDS: LEVOTHYROXINE SODIUM 50 MCG TABLET PO SCH (06:37)
[2018-07-27] MEDS: MetFORMIN HCL 500 MG TABLET PO SCH ×2 (06:37→16:42)
[2018-07-27] MEDS: INSULIN LISPRO 100 UNITS/ML SQ PRN ×2 (06:38→12:36)
[2018-07-27] MEDS: QUEtiapine FUMARATE 200 MG TABLET PO SCH ×2 (07:34→20:55)
[2018-07-27] MEDS: HALOPERIDOL 5 MG TABLET PO PRN (07:34)
[2018-07-27] MEDS: FLUoxetine HCL 20 MG CAPSULE PO SCH (07:34)
[2018-07-27] MEDS: ASPIRIN 81 MG CHEWABLE TABLET PO SCH (07:34)
[2018-07-27] MEDS: SIMVASTATIN 20 MG TABLET PO SCH (07:35)
[2018-07-27] MEDS: LevETIRAcetam 250 MG TABLET PO SCH ×2 (07:35→16:42)
[2018-07-27] MEDS: DIVALPROEX SODIUM 500 MG DR TABLET PO SCH ×2 (07:35→16:42)
[2018-07-27] MEDS: TOPIRAMATE 100 MG TABLET PO SCH ×3 (07:35→16:42)
[2018-07-27] MEDS: LORATADINE 10 MG TABLET PO SCH (07:35)
[2018-07-27] MEDS: MULTIVITAMINS WITH MINERALS, THERAPEUTIC TABLET PO SCH (07:35)
[2018-07-27] MEDS: BENAZEPRIL HCL 5 MG TABLET PO SCH (07:35)
[2018-07-27] MEDS: CHLORHEXIDINE GLUCONATE 4% 118 ML TOPICAL LIQUID TP SCH (07:36)
[2018-07-27] MEDS: OXYBUTYNIN CHLORIDE 5 MG ER TABLET PO SCH (07:36)
[2018-07-27] MEDS: ASCORBIC ACID 500 MG TABLET PO SCH (07:36)
[2018-07-27 08:00] VITALS: BP 126/85
[2018-07-27 11:49] LABS: GLUCOMETER DEV NAME(LOC) 3EX.; GLUCOSE,POINT OF CARE 160 MG/DL (70-110)
[2018-07-27 16:19] LABS: GLUCOMETER DEV NAME(LOC) 3EX.; GLUCOSE,POINT OF CARE 128 MG/DL (70-110)
[2018-07-27 20:44] LABS: GLUCOMETER DEV NAME(LOC) 3EX.; GLUCOSE,POINT OF CARE 138 MG/DL (70-110)
[2018-07-27 23:02] VITALS: BP 109/88
[2018-07-28 05:45] LABS: GLUCOMETER DEV NAME(LOC) 3EX.; GLUCOSE,POINT OF CARE 115 MG/DL (70-110)
[2018-07-28] MEDS: LEVOTHYROXINE SODIUM 50 MCG TABLET PO SCH (06:45)
[2018-07-28] MEDS: MetFORMIN HCL 500 MG TABLET PO SCH ×2 (06:45→17:23)
[2018-07-28] MEDS: FERROUS SULFATE 325 MG EC TABLET PO SCH ×2 (06:45→17:23)
[2018-07-28] MEDS: LevETIRAcetam 250 MG TABLET PO SCH ×2 (07:34→17:23)
[2018-07-28] MEDS: OXYBUTYNIN CHLORIDE 5 MG ER TABLET PO SCH (07:34)
[2018-07-28] MEDS: FLUoxetine HCL 20 MG CAPSULE PO SCH (07:34)
[2018-07-28] MEDS: TOPIRAMATE 100 MG TABLET PO SCH ×3 (07:34→17:23)
[2018-07-28] MEDS: ASPIRIN 81 MG CHEWABLE TABLET PO SCH (07:34)
[2018-07-28] MEDS: ASCORBIC ACID 500 MG TABLET PO SCH (07:34)
[2018-07-28] MEDS: LORATADINE 10 MG TABLET PO SCH (07:34)
[2018-07-28] MEDS: MULTIVITAMINS WITH MINERALS, THERAPEUTIC TABLET PO SCH (07:34)
[2018-07-28] MEDS: DIVALPROEX SODIUM 500 MG DR TABLET PO SCH ×2 (07:34→17:23)
[2018-07-28] MEDS: HALOPERIDOL 5 MG TABLET PO PRN (07:34)
[2018-07-28] MEDS: BENAZEPRIL HCL 5 MG TABLET PO SCH (07:34)
[2018-07-28] MEDS: QUEtiapine FUMARATE 200 MG TABLET PO SCH ×2 (07:35→21:30)
[2018-07-28] MEDS: SIMVASTATIN 20 MG TABLET PO SCH (07:37)
[2018-07-28] MEDS: CHLORHEXIDINE GLUCONATE 4% 118 ML TOPICAL LIQUID TP SCH (07:37)
[2018-07-28 08:00] VITALS: BP 125/74
[2018-07-28] MEDS: INSULIN LISPRO 100 UNITS/ML SQ PRN (17:25)
[2018-07-28 17:40] LABS: GLUCOMETER DEV NAME(LOC) 3EX.; GLUCOSE,POINT OF CARE 168 MG/DL (70-110)
[2018-07-28 18:46] VITALS: BP 129/68
[2018-07-29 05:49] LABS: GLUCOMETER DEV NAME(LOC) 3EX.; GLUCOSE,POINT OF CARE 121 MG/DL (70-110)
[2018-07-29] MEDS: MetFORMIN HCL 500 MG TABLET PO SCH ×2 (06:35→19:02)
[2018-07-29] MEDS: FERROUS SULFATE 325 MG EC TABLET PO SCH ×2 (06:35→19:02)
[2018-07-29] MEDS: LEVOTHYROXINE SODIUM 50 MCG TABLET PO SCH (06:35)
[2018-07-29] MEDS: QUEtiapine FUMARATE 200 MG TABLET PO SCH ×2 (07:29→20:10)
[2018-07-29] MEDS: FLUoxetine HCL 20 MG CAPSULE PO SCH (07:29)
[2018-07-29] MEDS: DIVALPROEX SODIUM 500 MG DR TABLET PO SCH ×2 (07:29→19:02)
[2018-07-29] MEDS: MULTIVITAMINS WITH MINERALS, THERAPEUTIC TABLET PO SCH (07:29)
[2018-07-29] MEDS: SIMVASTATIN 20 MG TABLET PO SCH (07:29)
[2018-07-29] MEDS: OMEPRAZOLE 20 MG CAPSULE PO PRN (07:29)
[2018-07-29] MEDS: BENAZEPRIL HCL 5 MG TABLET PO SCH (07:30)
[2018-07-29] MEDS: ASCORBIC ACID 500 MG TABLET PO SCH (07:30)
[2018-07-29] MEDS: LevETIRAcetam 250 MG TABLET PO SCH ×2 (07:30→19:04)
[2018-07-29] MEDS: TOPIRAMATE 100 MG TABLET PO SCH ×3 (07:30→19:02)
[2018-07-29] MEDS: ASPIRIN 81 MG CHEWABLE TABLET PO SCH (07:30)
[2018-07-29] MEDS: LORATADINE 10 MG TABLET PO SCH (07:32)
[2018-07-29] MEDS: OXYBUTYNIN CHLORIDE 5 MG ER TABLET PO SCH (07:33)
[2018-07-29] MEDS: CHLORHEXIDINE GLUCONATE 4% 118 ML TOPICAL LIQUID TP SCH (07:34)
[2018-07-29] MEDS: HALOPERIDOL 5 MG TABLET PO PRN ×2 (07:35→20:21)
[2018-07-29 12:01] LABS: GLUCOMETER DEV NAME(LOC) 3EX.; GLUCOSE,POINT OF CARE 150 MG/DL (70-110)
[2018-07-29] MEDS: INSULIN LISPRO 100 UNITS/ML SQ PRN (12:01)
[2018-07-29 16:14] VITALS: BP 122/75
[2018-07-29 16:54] LABS: GLUCOMETER DEV NAME(LOC) 3EX.; GLUCOSE,POINT OF CARE 120 MG/DL (70-110)
[2018-07-29 20:29] LABS: GLUCOMETER DEV NAME(LOC) 3EX.; GLUCOSE,POINT OF CARE 199 MG/DL (70-110)
[2018-07-30 06:00] LABS: GLUCOMETER DEV NAME(LOC) 3EX.; GLUCOSE,POINT OF CARE 144 MG/DL (70-110)
[2018-07-30] MEDS: LEVOTHYROXINE SODIUM 50 MCG TABLET PO SCH (06:42)
[2018-07-30] MEDS: MetFORMIN HCL 500 MG TABLET PO SCH ×2 (06:42→16:23)
[2018-07-30] MEDS: FERROUS SULFATE 325 MG EC TABLET PO SCH ×2 (06:42→16:22)
[2018-07-30] MEDS: ASPIRIN 81 MG CHEWABLE TABLET PO SCH (09:00)
[2018-07-30] MEDS: FLUoxetine HCL 20 MG CAPSULE PO SCH (09:00)
[2018-07-30] MEDS: DIVALPROEX SODIUM 500 MG DR TABLET PO SCH ×2 (09:00→16:22)
[2018-07-30] MEDS: LORATADINE 10 MG TABLET PO SCH (09:00)
[2018-07-30] MEDS: CHLORHEXIDINE GLUCONATE 4% 118 ML TOPICAL LIQUID TP SCH (09:00)
[2018-07-30] MEDS: LevETIRAcetam 250 MG TABLET PO SCH ×2 (09:00→16:23)
[2018-07-30] MEDS: BENAZEPRIL HCL 5 MG TABLET PO SCH (09:00)
[2018-07-30] MEDS: SIMVASTATIN 20 MG TABLET PO SCH (09:00)
[2018-07-30] MEDS: OXYBUTYNIN CHLORIDE 5 MG ER TABLET PO SCH (09:00)
[2018-07-30] MEDS: ASCORBIC ACID 500 MG TABLET PO SCH (09:00)
[2018-07-30] MEDS: MULTIVITAMINS WITH MINERALS, THERAPEUTIC TABLET PO SCH (09:00)
[2018-07-30] MEDS: TOPIRAMATE 100 MG TABLET PO SCH ×3 (09:00→16:23)
[2018-07-30] MEDS: QUEtiapine FUMARATE 200 MG TABLET PO SCH ×2 (09:00→20:17)
[2018-07-30] MEDS: HALOPERIDOL 5 MG TABLET PO PRN (16:22)
[2018-07-30 16:39] LABS: GLUCOMETER DEV NAME(LOC) 3EX.; GLUCOSE,POINT OF CARE 217 MG/DL (70-110)
[2018-07-30 17:18] VITALS: BP 131/71
[2018-07-30] MEDS: INSULIN LISPRO 100 UNITS/ML SQ PRN (17:34)
[2018-07-31] MEDS: LEVOTHYROXINE SODIUM 50 MCG TABLET PO SCH (07:00)
[2018-07-31] MEDS: FERROUS SULFATE 325 MG EC TABLET PO SCH ×2 (07:02→17:10)
[2018-07-31] MEDS: MetFORMIN HCL 500 MG TABLET PO SCH ×2 (07:03→17:10)
[2018-07-31] MEDS ORDERED: LORazepam 2 MG/ML VIAL IM ONE (08:30)
[2018-07-31 08:45] VITALS: BP 145/89
[2018-07-31] MEDS: QUEtiapine FUMARATE 200 MG TABLET PO SCH ×2 (08:59→20:26)
[2018-07-31] MEDS: DIVALPROEX SODIUM 500 MG DR TABLET PO SCH ×2 (08:59→17:10)
[2018-07-31] MEDS: ASPIRIN 81 MG CHEWABLE TABLET PO SCH (09:00)
[2018-07-31] MEDS: TOPIRAMATE 100 MG TABLET PO SCH ×3 (09:00→17:09)
[2018-07-31] MEDS: MULTIVITAMINS WITH MINERALS, THERAPEUTIC TABLET PO SCH (09:00)
[2018-07-31] MEDS: FLUoxetine HCL 20 MG CAPSULE PO SCH (09:00)
[2018-07-31] MEDS: ASCORBIC ACID 500 MG TABLET PO SCH (09:00)
[2018-07-31] MEDS: SIMVASTATIN 20 MG TABLET PO SCH (09:00)
[2018-07-31] MEDS: CHLORHEXIDINE GLUCONATE 4% 118 ML TOPICAL LIQUID TP SCH (09:01)
[2018-07-31] MEDS: LevETIRAcetam 250 MG TABLET PO SCH ×2 (09:01→17:09)
[2018-07-31] MEDS: LORATADINE 10 MG TABLET PO SCH (09:01)
[2018-07-31] MEDS: OXYBUTYNIN CHLORIDE 5 MG ER TABLET PO SCH (09:01)
[2018-07-31] MEDS: BENAZEPRIL HCL 5 MG TABLET PO SCH (09:03)
[2018-07-31 11:59] LABS: GLUCOMETER DEV NAME(LOC) 3EX.; GLUCOSE,POINT OF CARE 198 MG/DL (70-110)
[2018-07-31] MEDS: INSULIN LISPRO 100 UNITS/ML SQ PRN ×2 (12:25→17:45)
[2018-07-31 17:05] LABS: GLUCOMETER DEV NAME(LOC) 3EX.; GLUCOSE,POINT OF CARE 216 MG/DL (70-110)
[2018-08-01 06:09] LABS: GLUCOMETER DEV NAME(LOC) 3EX.; GLUCOSE,POINT OF CARE 146 MG/DL (70-110)
[2018-08-01] MEDS: INSULIN LISPRO 100 UNITS/ML SQ PRN ×4 (06:36→21:30)
[2018-08-01] MEDS: FERROUS SULFATE 325 MG EC TABLET PO SCH ×2 (06:53→17:59)
[2018-08-01] MEDS: LEVOTHYROXINE SODIUM 50 MCG TABLET PO SCH (06:53)
[2018-08-01] MEDS: MetFORMIN HCL 500 MG TABLET PO SCH ×2 (06:53→18:00)
[2018-08-01 08:05] VITALS: BP 113/82
[2018-08-01] MEDS: TOPIRAMATE 100 MG TABLET PO SCH ×3 (09:25→18:00)
[2018-08-01] MEDS: QUEtiapine FUMARATE 200 MG TABLET PO SCH ×2 (09:25→20:43)
[2018-08-01] MEDS: ASCORBIC ACID 500 MG TABLET PO SCH (09:25)
[2018-08-01] MEDS: BENAZEPRIL HCL 5 MG TABLET PO SCH (09:25)
[2018-08-01] MEDS: LevETIRAcetam 250 MG TABLET PO SCH ×2 (09:25→18:00)
[2018-08-01] MEDS: MULTIVITAMINS WITH MINERALS, THERAPEUTIC TABLET PO SCH (09:25)
[2018-08-01] MEDS: OXYBUTYNIN CHLORIDE 5 MG ER TABLET PO SCH (09:25)
[2018-08-01] MEDS: DIVALPROEX SODIUM 500 MG DR TABLET PO SCH ×2 (09:25→18:00)
[2018-08-01] MEDS: FLUoxetine HCL 20 MG CAPSULE PO SCH (09:25)
[2018-08-01] MEDS: LORATADINE 10 MG TABLET PO SCH (09:26)
[2018-08-01] MEDS: SIMVASTATIN 20 MG TABLET PO SCH (09:26)
[2018-08-01] MEDS: ASPIRIN 81 MG CHEWABLE TABLET PO SCH (09:26)
[2018-08-01] MEDS: HALOPERIDOL 5 MG TABLET PO PRN (09:27)
[2018-08-01] MEDS: CHLORHEXIDINE GLUCONATE 4% 118 ML TOPICAL LIQUID TP SCH (09:35)
[2018-08-01 11:49] LABS: GLUCOMETER DEV NAME(LOC) 3EX.; GLUCOSE,POINT OF CARE 163 MG/DL (70-110)
[2018-08-01 16:07] VITALS: BP 110/80
[2018-08-01 16:54] LABS: GLUCOMETER DEV NAME(LOC) 3EX.; GLUCOSE,POINT OF CARE 170 MG/DL (70-110)
[2018-08-01 20:49] LABS: GLUCOMETER DEV NAME(LOC) 3EX.; GLUCOSE,POINT OF CARE 142 MG/DL (70-110)
[2018-08-02 06:25] LABS: GLUCOMETER DEV NAME(LOC) 3EX.; GLUCOSE,POINT OF CARE 124 MG/DL (70-110)
[2018-08-02] MEDS: INSULIN LISPRO 100 UNITS/ML SQ PRN ×2 (06:47→16:47)
[2018-08-02] MEDS: LEVOTHYROXINE SODIUM 50 MCG TABLET PO SCH ×2 (06:51→06:58)
[2018-08-02] MEDS: FERROUS SULFATE 325 MG EC TABLET PO SCH ×2 (06:58→16:19)
[2018-08-02] MEDS: MetFORMIN HCL 500 MG TABLET PO SCH ×2 (06:59→16:19)
[2018-08-02] MEDS ORDERED: LORazepam 2 MG/ML VIAL IM ONE (09:00)
[2018-08-02] MEDS: BENAZEPRIL HCL 5 MG TABLET PO SCH (09:00)
[2018-08-02] MEDS: FLUoxetine HCL 20 MG CAPSULE PO SCH (09:00)
[2018-08-02] MEDS: TOPIRAMATE 100 MG TABLET PO SCH ×3 (09:00→16:19)
[2018-08-02] MEDS: LevETIRAcetam 250 MG TABLET PO SCH ×2 (09:00→16:19)
[2018-08-02] MEDS: OXYBUTYNIN CHLORIDE 5 MG ER TABLET PO SCH (09:00)
[2018-08-02] MEDS: MULTIVITAMINS WITH MINERALS, THERAPEUTIC TABLET PO SCH (09:00)
[2018-08-02] MEDS: ASCORBIC ACID 500 MG TABLET PO SCH (09:00)
[2018-08-02] MEDS: DIVALPROEX SODIUM 500 MG DR TABLET PO SCH ×2 (09:00→16:19)
[2018-08-02] MEDS: ASPIRIN 81 MG CHEWABLE TABLET PO SCH (09:00)
[2018-08-02] MEDS: QUEtiapine FUMARATE 200 MG TABLET PO SCH ×2 (09:00→20:14)
[2018-08-02] MEDS: SIMVASTATIN 20 MG TABLET PO SCH (09:00)
[2018-08-02] MEDS: LORATADINE 10 MG TABLET PO SCH (09:00)
[2018-08-02] MEDS: CHLORHEXIDINE GLUCONATE 4% 118 ML TOPICAL LIQUID TP SCH (10:23)
[2018-08-02 11:44] LABS: GLUCOMETER DEV NAME(LOC) 3EX.; GLUCOSE,POINT OF CARE 112 MG/DL (70-110)
[2018-08-02 16:03] VITALS: BP 117/71
[2018-08-02 16:14] LABS: GLUCOMETER DEV NAME(LOC) 3EX.; GLUCOSE,POINT OF CARE 183 MG/DL (70-110)
[2018-08-02 21:37] LABS: GLUCOMETER DEV NAME(LOC) 3EX.; GLUCOSE,POINT OF CARE 102 MG/DL (70-110)
[2018-08-03 06:30] LABS: GLUCOMETER DEV NAME(LOC) 3EX.; GLUCOSE,POINT OF CARE 125 MG/DL (70-110)
[2018-08-03] MEDS: MetFORMIN HCL 500 MG TABLET PO SCH ×2 (07:01→16:59)
[2018-08-03] MEDS: FERROUS SULFATE 325 MG EC TABLET PO SCH ×2 (07:01→16:59)
[2018-08-03] MEDS: LEVOTHYROXINE SODIUM 50 MCG TABLET PO SCH (07:01)
[2018-08-03] MEDS: BENAZEPRIL HCL 5 MG TABLET PO SCH (08:13)
[2018-08-03] MEDS: MULTIVITAMINS WITH MINERALS, THERAPEUTIC TABLET PO SCH (08:13)
[2018-08-03] MEDS: QUEtiapine FUMARATE 200 MG TABLET PO SCH ×2 (08:13→20:48)
[2018-08-03] MEDS: ASPIRIN 81 MG CHEWABLE TABLET PO SCH (08:13)
[2018-08-03] MEDS: FLUoxetine HCL 20 MG CAPSULE PO SCH (08:13)
[2018-08-03] MEDS: DIVALPROEX SODIUM 500 MG DR TABLET PO SCH ×2 (08:13→16:59)
[2018-08-03] MEDS: ASCORBIC ACID 500 MG TABLET PO SCH (08:14)
[2018-08-03] MEDS: SIMVASTATIN 20 MG TABLET PO SCH (08:14)
[2018-08-03] MEDS: OXYBUTYNIN CHLORIDE 5 MG ER TABLET PO SCH (08:14)
[2018-08-03] MEDS: TOPIRAMATE 100 MG TABLET PO SCH ×3 (08:14→16:59)
[2018-08-03] MEDS: LevETIRAcetam 250 MG TABLET PO SCH ×2 (08:14→16:59)
[2018-08-03] MEDS: LORATADINE 10 MG TABLET PO SCH (08:16)
[2018-08-03] MEDS: CHLORHEXIDINE GLUCONATE 4% 118 ML TOPICAL LIQUID TP SCH (08:26)
[2018-08-03] MEDS: INSULIN LISPRO 100 UNITS/ML SQ PRN (11:54)
[2018-08-03 16:58] VITALS: BP 100/62
[2018-08-03 17:09] LABS: GLUCOMETER DEV NAME(LOC) 3EX.; GLUCOSE,POINT OF CARE 180 MG/DL (70-110)
[2018-08-03 17:14] LABS: GLUCOMETER DEV NAME(LOC) 3EX.; GLUCOSE,POINT OF CARE 115 MG/DL (70-110)
[2018-08-04 05:55] LABS: GLUCOMETER DEV NAME(LOC) 3EX.; GLUCOSE,POINT OF CARE 104 MG/DL (70-110)
[2018-08-04] MEDS: LEVOTHYROXINE SODIUM 50 MCG TABLET PO SCH ×2 (06:56→07:14)
[2018-08-04] MEDS: FERROUS SULFATE 325 MG EC TABLET PO SCH ×3 (06:56→17:01)
[2018-08-04] MEDS: MetFORMIN HCL 500 MG TABLET PO SCH ×3 (06:56→17:02)
[2018-08-04] MEDS: MULTIVITAMINS WITH MINERALS, THERAPEUTIC TABLET PO SCH (09:10)
[2018-08-04] MEDS: OXYBUTYNIN CHLORIDE 5 MG ER TABLET PO SCH (09:11)
[2018-08-04] MEDS: SIMVASTATIN 20 MG TABLET PO SCH (09:11)
[2018-08-04] MEDS: DIVALPROEX SODIUM 500 MG DR TABLET PO SCH ×2 (09:11→17:01)
[2018-08-04] MEDS: FLUoxetine HCL 20 MG CAPSULE PO SCH (09:11)
[2018-08-04] MEDS: TOPIRAMATE 100 MG TABLET PO SCH ×3 (09:11→17:01)
[2018-08-04] MEDS: ASCORBIC ACID 500 MG TABLET PO SCH (09:11)
[2018-08-04] MEDS: LORATADINE 10 MG TABLET PO SCH (09:11)
[2018-08-04] MEDS: LevETIRAcetam 250 MG TABLET PO SCH ×2 (09:11→17:01)
[2018-08-04] MEDS: QUEtiapine FUMARATE 200 MG TABLET PO SCH ×2 (09:11→20:36)
[2018-08-04] MEDS: BENAZEPRIL HCL 5 MG TABLET PO SCH (09:12)
[2018-08-04] MEDS: ASPIRIN 81 MG CHEWABLE TABLET PO SCH (09:12)
[2018-08-04] MEDS: CHLORHEXIDINE GLUCONATE 4% 118 ML TOPICAL LIQUID TP SCH (11:08)
[2018-08-04 11:19] LABS: GLUCOMETER DEV NAME(LOC) 3EX.; GLUCOSE,POINT OF CARE 194 MG/DL (70-110)
[2018-08-04] MEDS: INSULIN LISPRO 100 UNITS/ML SQ PRN (12:08)
[2018-08-04 17:09] LABS: GLUCOMETER DEV NAME(LOC) 3EX.; GLUCOSE,POINT OF CARE 123 MG/DL (70-110)
[2018-08-04 21:04] LABS: GLUCOMETER DEV NAME(LOC) 3EX.; GLUCOSE,POINT OF CARE 102 MG/DL (70-110)
[2018-08-05 06:14] LABS: GLUCOMETER DEV NAME(LOC) 3EX.; GLUCOSE,POINT OF CARE 103 MG/DL (70-110)
[2018-08-05 06:38] LABS: BASOPHILS % (AUTO) 0.5 % (0.0-2.0); EOSINOPHILS % (AUTO) 0.2 % (1.0-6.0); HEMATOCRIT 35.4 % (36-46); HEMOGLOBIN 12.5 g/dL (12.0-16.0); LYMPHOCYTES # (AUTO) 4.4 K/uL (1.0-4.8); LYMPHOCYTES % (AUTO) 57.1 % (22.0-44.0); MEAN CORPUSCULAR HEMOGLOBIN 35.2 pg (26.0-34.0); MEAN CORPUSCULAR HGB CONC 35.3 G/dL (31.0-37.0); MEAN CORPUSCULAR VOLUME 100 fL (80-100); MONOCYTES # (AUTO) 0.8 K/uL (0.1-1.0); MONOCYTES % (AUTO) 10.6 % (2.0-9.0); NEUTROPHILS # (AUTO) 2.5 K/uL (1.8-7.7); NEUTROPHILS % (AUTO) 31.6 % (40.0-70.0); PLATELET COUNT (AUTO) 143 K/uL (150-450); RED BLOOD CELL COUNT(AUTO) 3.56 MIL/uL (4.00-5.20); RED CELL DISTRIBUTION WIDTH 13.9 % (11.5-14.5)
[2018-08-05 07:01] LABS: HEMOGLOBIN A1C 6.4 % (4.5-6.2)
[2018-08-05] MEDS: MetFORMIN HCL 500 MG TABLET PO SCH ×2 (07:12→17:58)
[2018-08-05] MEDS: FERROUS SULFATE 325 MG EC TABLET PO SCH ×2 (07:12→17:58)
[2018-08-05] MEDS: LEVOTHYROXINE SODIUM 50 MCG TABLET PO SCH (07:12)
[2018-08-05 07:16] LABS: ALANINE AMINOTRANSFERASE 22 U/L (12-78); ALBUMIN 2.5 g/dL (3.4-5.0); ALKALINE PHOSPHATASE 62 U/L (46-116); ANION GAP 6 mmol/L (8-16); ASPARTATE AMINOTRANSFERASE 21 U/L (15-37); BILIRUBIN,TOTAL 0.2 mg/dL (0.1-1.0); CALCIUM, TOTAL 8.9 mg/dL (8.8-10.5); CARBON DIOXIDE 27 mmol/L (22-29); CHLORIDE 106 mmol/L (98-107); CHOL/HDL RATIO 3.9 (3.9-5.7); CHOLESTEROL 184 mg/dL (131-200); CREATININE 0.71 mg/dL (0.60-1.30); GLOMERULAR FILTR. RATE CALC > 60 mL/min (>60); GLUCOSE,RANDOM 110 mg/dL (70-110); HDL CHOLESTEROL 47 mg/dL (40-60); LDL CHOL (CALC.) 113 mg/dL (0-130); PHOSPHORUS 4.9 mg/dL (2.5-4.9); POTASSIUM 4.4 mmol/L (3.5-5.1); SODIUM SERUM 139 mmol/L (136-145); TOTAL PROTEIN, SERUM 6.2 g/dL (6.4-8.2); TRIGLYCERIDES 120 mg/dL (15-150); UREA NITROGEN, BLOOD 21 mg/dL (7-18)
[2018-08-05] MEDS: HALOPERIDOL 5 MG TABLET PO PRN (10:29)
[2018-08-05] MEDS: FLUoxetine HCL 20 MG CAPSULE PO SCH (10:29)
[2018-08-05] MEDS: ASCORBIC ACID 500 MG TABLET PO SCH (10:29)
[2018-08-05] MEDS: MULTIVITAMINS WITH MINERALS, THERAPEUTIC TABLET PO SCH (10:29)
[2018-08-05] MEDS: QUEtiapine FUMARATE 200 MG TABLET PO SCH ×2 (10:29→21:03)
[2018-08-05] MEDS: TOPIRAMATE 100 MG TABLET PO SCH ×3 (10:30→17:58)
[2018-08-05] MEDS: DIVALPROEX SODIUM 500 MG DR TABLET PO SCH ×2 (10:30→17:57)
[2018-08-05] MEDS: OXYBUTYNIN CHLORIDE 5 MG ER TABLET PO SCH (10:30)
[2018-08-05] MEDS: SIMVASTATIN 20 MG TABLET PO SCH (10:30)
[2018-08-05] MEDS: LevETIRAcetam 250 MG TABLET PO SCH ×2 (10:30→17:58)
[2018-08-05] MEDS: ASPIRIN 81 MG CHEWABLE TABLET PO SCH (10:30)
[2018-08-05] MEDS: BENAZEPRIL HCL 5 MG TABLET PO SCH (10:30)
[2018-08-05] MEDS: LORATADINE 10 MG TABLET PO SCH (10:30)
[2018-08-05 11:19] LABS: GLUCOMETER DEV NAME(LOC) 3EX.; GLUCOSE,POINT OF CARE 122 MG/DL (70-110)
[2018-08-05] MEDS: SILVER 45 ML GEL TP SCH (11:45)
[2018-08-05] MEDS: INSULIN LISPRO 100 UNITS/ML SQ PRN ×2 (11:46→17:59)
[2018-08-05] MEDS: CHLORHEXIDINE GLUCONATE 4% 118 ML TOPICAL LIQUID TP SCH (11:46)
[2018-08-05 16:29] LABS: GLUCOMETER DEV NAME(LOC) 3EX.; GLUCOSE,POINT OF CARE 185 MG/DL (70-110)
[2018-08-05 21:14] LABS: GLUCOMETER DEV NAME(LOC) 3EX.; GLUCOSE,POINT OF CARE 73 MG/DL (70-110)
[2018-08-06 05:45] LABS: GLUCOMETER DEV NAME(LOC) 3EX.; GLUCOSE,POINT OF CARE 104 MG/DL (70-110)
[2018-08-06] MEDS: FERROUS SULFATE 325 MG EC TABLET PO SCH ×2 (06:58→17:00)
[2018-08-06] MEDS: LEVOTHYROXINE SODIUM 50 MCG TABLET PO SCH (06:58)
[2018-08-06] MEDS: MetFORMIN HCL 500 MG TABLET PO SCH ×2 (06:58→17:00)
[2018-08-06] MEDS: FLUoxetine HCL 20 MG CAPSULE PO SCH (08:16)
[2018-08-06] MEDS: HALOPERIDOL 5 MG TABLET PO PRN ×2 (08:19→10:06)
[2018-08-06] MEDS: DIVALPROEX SODIUM 500 MG DR TABLET PO SCH ×2 (09:00→17:00)
[2018-08-06] MEDS: ASPIRIN 81 MG CHEWABLE TABLET PO SCH (09:00)
[2018-08-06] MEDS: SIMVASTATIN 20 MG TABLET PO SCH (09:00)
[2018-08-06] MEDS: OXYBUTYNIN CHLORIDE 5 MG ER TABLET PO SCH (09:00)
[2018-08-06] MEDS: MULTIVITAMINS WITH MINERALS, THERAPEUTIC TABLET PO SCH (09:00)
[2018-08-06] MEDS: LORATADINE 10 MG TABLET PO SCH (09:00)
[2018-08-06] MEDS: LevETIRAcetam 250 MG TABLET PO SCH ×2 (09:00→17:00)
[2018-08-06] MEDS: QUEtiapine FUMARATE 200 MG TABLET PO SCH ×2 (09:00→20:37)
[2018-08-06] MEDS: BENAZEPRIL HCL 5 MG TABLET PO SCH (09:00)
[2018-08-06] MEDS: TOPIRAMATE 100 MG TABLET PO SCH ×3 (09:00→17:00)
[2018-08-06] MEDS: ASCORBIC ACID 500 MG TABLET PO SCH (09:00)
[2018-08-06] MEDS: SILVER 45 ML GEL TP SCH (11:21)
[2018-08-06] MEDS: CHLORHEXIDINE GLUCONATE 4% 118 ML TOPICAL LIQUID TP SCH (11:21)
[2018-08-06 12:14] LABS: GLUCOMETER DEV NAME(LOC) 3EX.; GLUCOSE,POINT OF CARE 129 MG/DL (70-110)
[2018-08-06 16:03] VITALS: BP 110/62
[2018-08-06 16:33] LABS: GLUCOMETER DEV NAME(LOC) 3EX.; GLUCOSE,POINT OF CARE 131 MG/DL (70-110)
[2018-08-06 21:09] LABS: GLUCOMETER DEV NAME(LOC) 3EX.; GLUCOSE,POINT OF CARE 107 MG/DL (70-110)
[2018-08-07 05:39] LABS: GLUCOMETER DEV NAME(LOC) 3EX.; GLUCOSE,POINT OF CARE 101 MG/DL (70-110)
[2018-08-07 06:07] VITALS: BP 133/83
[2018-08-07] MEDS: MetFORMIN HCL 500 MG TABLET PO SCH ×2 (06:53→17:47)
[2018-08-07] MEDS: FERROUS SULFATE 325 MG EC TABLET PO SCH ×2 (06:53→17:47)
[2018-08-07] MEDS: INSULIN LISPRO 100 UNITS/ML SQ PRN ×3 (06:53→21:40)
[2018-08-07] MEDS: LEVOTHYROXINE SODIUM 50 MCG TABLET PO SCH (06:53)
[2018-08-07 08:30] VITALS: BP 130/76
[2018-08-07] MEDS: LevETIRAcetam 250 MG TABLET PO SCH ×2 (08:33→17:47)
[2018-08-07] MEDS: ASCORBIC ACID 500 MG TABLET PO SCH (08:34)
[2018-08-07] MEDS: ASPIRIN 81 MG CHEWABLE TABLET PO SCH (08:34)
[2018-08-07] MEDS: FLUoxetine HCL 20 MG CAPSULE PO SCH (08:34)
[2018-08-07] MEDS: SIMVASTATIN 20 MG TABLET PO SCH (08:34)
[2018-08-07] MEDS: DIVALPROEX SODIUM 500 MG DR TABLET PO SCH ×2 (08:34→17:47)
[2018-08-07] MEDS: LORATADINE 10 MG TABLET PO SCH (08:34)
[2018-08-07] MEDS: MULTIVITAMINS WITH MINERALS, THERAPEUTIC TABLET PO SCH (08:34)
[2018-08-07] MEDS: QUEtiapine FUMARATE 200 MG TABLET PO SCH ×2 (08:34→21:17)
[2018-08-07] MEDS: BENAZEPRIL HCL 5 MG TABLET PO SCH (08:35)
[2018-08-07] MEDS: HALOPERIDOL 5 MG TABLET PO PRN (08:35)
[2018-08-07] MEDS: OXYBUTYNIN CHLORIDE 5 MG ER TABLET PO SCH (08:35)
[2018-08-07] MEDS: TOPIRAMATE 100 MG TABLET PO SCH ×3 (08:35→17:47)
[2018-08-07] MEDS: SILVER 45 ML GEL TP SCH (10:37)
[2018-08-07] MEDS: CHLORHEXIDINE GLUCONATE 4% 118 ML TOPICAL LIQUID TP SCH (10:37)
[2018-08-07 11:39] LABS: GLUCOMETER DEV NAME(LOC) 3EX.; GLUCOSE,POINT OF CARE 114 MG/DL (70-110)
[2018-08-07 16:10] VITALS: BP 124/71
[2018-08-07 17:15] LABS: GLUCOMETER DEV NAME(LOC) 3EX.; GLUCOSE,POINT OF CARE 84 MG/DL (70-110)
[2018-08-07 21:08] LABS: GLUCOMETER DEV NAME(LOC) 3EX.; GLUCOSE,POINT OF CARE 199 MG/DL (70-110)
[2018-08-08 06:15] LABS: GLUCOMETER DEV NAME(LOC) 3EX.; GLUCOSE,POINT OF CARE 139 MG/DL (70-110)
[2018-08-08] MEDS: LEVOTHYROXINE SODIUM 50 MCG TABLET PO SCH (06:59)
[2018-08-08] MEDS: MetFORMIN HCL 500 MG TABLET PO SCH ×2 (07:00→17:00)
[2018-08-08] MEDS: FERROUS SULFATE 325 MG EC TABLET PO SCH ×2 (07:00→17:01)
[2018-08-08 09:00] VITALS: BP 94/63
[2018-08-08] MEDS: HALOPERIDOL 5 MG TABLET PO PRN (09:59)
[2018-08-08] MEDS: QUEtiapine FUMARATE 200 MG TABLET PO SCH ×2 (09:59→20:36)
[2018-08-08] MEDS: MULTIVITAMINS WITH MINERALS, THERAPEUTIC TABLET PO SCH (09:59)
[2018-08-08] MEDS: DIVALPROEX SODIUM 500 MG DR TABLET PO SCH ×2 (09:59→17:00)
[2018-08-08] MEDS: OXYBUTYNIN CHLORIDE 5 MG ER TABLET PO SCH (10:00)
[2018-08-08] MEDS: ASCORBIC ACID 500 MG TABLET PO SCH (10:00)
[2018-08-08] MEDS: SIMVASTATIN 20 MG TABLET PO SCH (10:00)
[2018-08-08] MEDS: LevETIRAcetam 250 MG TABLET PO SCH ×2 (10:00→17:00)
[2018-08-08] MEDS: TOPIRAMATE 100 MG TABLET PO SCH ×3 (10:00→17:01)
[2018-08-08] MEDS: ASPIRIN 81 MG CHEWABLE TABLET PO SCH (10:00)
[2018-08-08] MEDS: FLUoxetine HCL 20 MG CAPSULE PO SCH (10:00)
[2018-08-08] MEDS: BENAZEPRIL HCL 5 MG TABLET PO SCH (10:00)
[2018-08-08] MEDS: LORATADINE 10 MG TABLET PO SCH (10:00)
[2018-08-08] MEDS: SILVER 45 ML GEL TP SCH (10:27)
[2018-08-08] MEDS: CHLORHEXIDINE GLUCONATE 4% 118 ML TOPICAL LIQUID TP SCH (10:27)
[2018-08-08 11:18] LABS: GLUCOMETER DEV NAME(LOC) 3EX.; GLUCOSE,POINT OF CARE 189 MG/DL (70-110)
[2018-08-08] MEDS: INSULIN LISPRO 100 UNITS/ML SQ PRN ×3 (12:11→21:19)
[2018-08-08 16:59] LABS: GLUCOMETER DEV NAME(LOC) 3EX.; GLUCOSE,POINT OF CARE 172 MG/DL (70-110)
[2018-08-08 17:11] VITALS: BP 112/69
[2018-08-08 21:24] LABS: GLUCOMETER DEV NAME(LOC) 3EX.; GLUCOSE,POINT OF CARE 188 MG/DL (70-110)
[2018-08-09 06:24] LABS: GLUCOMETER DEV NAME(LOC) 3EX.; GLUCOSE,POINT OF CARE 109 MG/DL (70-110)
[2018-08-09] MEDS: LEVOTHYROXINE SODIUM 50 MCG TABLET PO SCH (07:00)
[2018-08-09] MEDS: FERROUS SULFATE 325 MG EC TABLET PO SCH ×2 (07:03→16:39)
[2018-08-09] MEDS: MetFORMIN HCL 500 MG TABLET PO SCH ×2 (07:04→16:37)
[2018-08-09] MEDS: INSULIN LISPRO 100 UNITS/ML SQ PRN (07:04)
[2018-08-09 09:00] VITALS: BP 131/70
[2018-08-09] MEDS: CHLORHEXIDINE GLUCONATE 4% 118 ML TOPICAL LIQUID TP SCH (10:44)
[2018-08-09] MEDS: SILVER 45 ML GEL TP SCH (10:44)
[2018-08-09] MEDS: HALOPERIDOL 5 MG TABLET PO PRN (12:33)
[2018-08-09] MEDS: LORATADINE 10 MG TABLET PO SCH (12:33)
[2018-08-09] MEDS: BENAZEPRIL HCL 5 MG TABLET PO SCH (12:33)
[2018-08-09] MEDS: DIVALPROEX SODIUM 500 MG DR TABLET PO SCH ×2 (12:33→16:37)
[2018-08-09] MEDS: ASPIRIN 81 MG CHEWABLE TABLET PO SCH (12:33)
[2018-08-09] MEDS: QUEtiapine FUMARATE 200 MG TABLET PO SCH ×2 (12:33→20:29)
[2018-08-09] MEDS: FLUoxetine HCL 20 MG CAPSULE PO SCH (12:33)
[2018-08-09] MEDS: MULTIVITAMINS WITH MINERALS, THERAPEUTIC TABLET PO SCH (12:34)
[2018-08-09] MEDS: LevETIRAcetam 250 MG TABLET PO SCH ×2 (12:34→16:37)
[2018-08-09] MEDS: OXYBUTYNIN CHLORIDE 5 MG ER TABLET PO SCH (12:34)
[2018-08-09] MEDS: SIMVASTATIN 20 MG TABLET PO SCH (12:34)
[2018-08-09] MEDS: TOPIRAMATE 100 MG TABLET PO SCH ×3 (12:34→16:39)
[2018-08-09] MEDS: ASCORBIC ACID 500 MG TABLET PO SCH (12:35)
[2018-08-09 16:29] LABS: GLUCOMETER DEV NAME(LOC) 3EX.; GLUCOSE,POINT OF CARE 118 MG/DL (70-110)
[2018-08-10 05:45] LABS: GLUCOMETER DEV NAME(LOC) 3EX.; GLUCOSE,POINT OF CARE 88 MG/DL (70-110)
[2018-08-10] MEDS: MetFORMIN HCL 500 MG TABLET PO SCH ×2 (06:49→16:55)
[2018-08-10] MEDS: LEVOTHYROXINE SODIUM 50 MCG TABLET PO SCH (06:49)
[2018-08-10] MEDS: FERROUS SULFATE 325 MG EC TABLET PO SCH ×2 (06:49→16:55)
[2018-08-10] MEDS: INSULIN LISPRO 100 UNITS/ML SQ PRN ×2 (06:49→17:30)
[2018-08-10] MEDS: FLUoxetine HCL 20 MG CAPSULE PO SCH (10:20)
[2018-08-10] MEDS: LORATADINE 10 MG TABLET PO SCH (10:20)
[2018-08-10] MEDS: DIVALPROEX SODIUM 500 MG DR TABLET PO SCH ×2 (10:20→16:54)
[2018-08-10] MEDS: SIMVASTATIN 20 MG TABLET PO SCH (10:20)
[2018-08-10] MEDS: MULTIVITAMINS WITH MINERALS, THERAPEUTIC TABLET PO SCH (10:20)
[2018-08-10] MEDS: LevETIRAcetam 250 MG TABLET PO SCH ×2 (10:20→16:55)
[2018-08-10] MEDS: ASPIRIN 81 MG CHEWABLE TABLET PO SCH (10:20)
[2018-08-10] MEDS: OXYBUTYNIN CHLORIDE 5 MG ER TABLET PO SCH (10:20)
[2018-08-10] MEDS: QUEtiapine FUMARATE 200 MG TABLET PO SCH ×2 (10:20→20:10)
[2018-08-10] MEDS: BENAZEPRIL HCL 5 MG TABLET PO SCH (10:21)
[2018-08-10] MEDS: SILVER 45 ML GEL TP SCH (10:21)
[2018-08-10] MEDS: CHLORHEXIDINE GLUCONATE 4% 118 ML TOPICAL LIQUID TP SCH (10:21)
[2018-08-10] MEDS: TOPIRAMATE 100 MG TABLET PO SCH ×3 (10:21→16:55)
[2018-08-10] MEDS: ASCORBIC ACID 500 MG TABLET PO SCH (10:21)
[2018-08-10 11:54] LABS: GLUCOMETER DEV NAME(LOC) 3EX.; GLUCOSE,POINT OF CARE 136 MG/DL (70-110)
[2018-08-10 17:10] LABS: GLUCOMETER DEV NAME(LOC) 3EX.; GLUCOSE,POINT OF CARE 149 MG/DL (70-110)
[2018-08-10 21:29] LABS: GLUCOMETER DEV NAME(LOC) 3EX.; GLUCOSE,POINT OF CARE 147 MG/DL (70-110)
[2018-08-11 06:14] LABS: GLUCOMETER DEV NAME(LOC) 3EX.; GLUCOSE,POINT OF CARE 115 MG/DL (70-110)
[2018-08-11] MEDS: LEVOTHYROXINE SODIUM 50 MCG TABLET PO SCH (06:38)
[2018-08-11] MEDS: FERROUS SULFATE 325 MG EC TABLET PO SCH ×2 (06:38→16:33)
[2018-08-11] MEDS: MetFORMIN HCL 500 MG TABLET PO SCH ×2 (06:39→16:33)
[2018-08-11] MEDS: ASPIRIN 81 MG CHEWABLE TABLET PO SCH (09:00)
[2018-08-11] MEDS: LORATADINE 10 MG TABLET PO SCH (09:00)
[2018-08-11] MEDS: SIMVASTATIN 20 MG TABLET PO SCH (09:00)
[2018-08-11] MEDS: ASCORBIC ACID 500 MG TABLET PO SCH (09:00)
[2018-08-11] MEDS: CHLORHEXIDINE GLUCONATE 4% 118 ML TOPICAL LIQUID TP SCH (09:00)
[2018-08-11] MEDS: MULTIVITAMINS WITH MINERALS, THERAPEUTIC TABLET PO SCH (09:00)
[2018-08-11] MEDS: OXYBUTYNIN CHLORIDE 5 MG ER TABLET PO SCH (09:00)
[2018-08-11] MEDS: BENAZEPRIL HCL 5 MG TABLET PO SCH (09:00)
[2018-08-11] MEDS: TOPIRAMATE 100 MG TABLET PO SCH ×3 (09:42→16:33)
[2018-08-11] MEDS: FLUoxetine HCL 20 MG CAPSULE PO SCH (09:42)
[2018-08-11] MEDS: DIVALPROEX SODIUM 500 MG DR TABLET PO SCH ×2 (09:43→16:33)
[2018-08-11] MEDS: LevETIRAcetam 250 MG TABLET PO SCH ×2 (09:43→16:33)
[2018-08-11] MEDS: QUEtiapine FUMARATE 200 MG TABLET PO SCH ×2 (09:43→20:36)
[2018-08-11 11:24] LABS: GLUCOMETER DEV NAME(LOC) 3EX.; GLUCOSE,POINT OF CARE 160 MG/DL (70-110)
[2018-08-11] MEDS: INSULIN LISPRO 100 UNITS/ML SQ PRN ×2 (11:48→18:01)
[2018-08-11] MEDS: SILVER 45 ML GEL TP SCH (12:36)
[2018-08-11 17:04] LABS: GLUCOMETER DEV NAME(LOC) 3EX.; GLUCOSE,POINT OF CARE 154 MG/DL (70-110)
[2018-08-11 21:39] LABS: GLUCOMETER DEV NAME(LOC) 3EX.; GLUCOSE,POINT OF CARE 123 MG/DL (70-110)
[2018-08-12 05:50] LABS: GLUCOMETER DEV NAME(LOC) 3EX.; GLUCOSE,POINT OF CARE 87 MG/DL (70-110)
[2018-08-12] MEDS: LEVOTHYROXINE SODIUM 50 MCG TABLET PO SCH (07:01)
[2018-08-12] MEDS: MetFORMIN HCL 500 MG TABLET PO SCH ×2 (07:01→17:51)
[2018-08-12] MEDS: FERROUS SULFATE 325 MG EC TABLET PO SCH ×2 (07:01→17:51)
[2018-08-12] MEDS: MULTIVITAMINS WITH MINERALS, THERAPEUTIC TABLET PO SCH (08:24)
[2018-08-12] MEDS: FLUoxetine HCL 20 MG CAPSULE PO SCH (08:24)
[2018-08-12] MEDS: ASPIRIN 81 MG CHEWABLE TABLET PO SCH (08:25)
[2018-08-12] MEDS: OXYBUTYNIN CHLORIDE 5 MG ER TABLET PO SCH (08:25)
[2018-08-12] MEDS: TOPIRAMATE 100 MG TABLET PO SCH ×3 (08:25→17:51)
[2018-08-12] MEDS: QUEtiapine FUMARATE 200 MG TABLET PO SCH ×2 (08:25→20:21)
[2018-08-12] MEDS: ASCORBIC ACID 500 MG TABLET PO SCH (08:25)
[2018-08-12] MEDS: LORATADINE 10 MG TABLET PO SCH (08:25)
[2018-08-12] MEDS: SIMVASTATIN 20 MG TABLET PO SCH (08:25)
[2018-08-12] MEDS: LevETIRAcetam 250 MG TABLET PO SCH ×2 (08:25→17:51)
[2018-08-12] MEDS: DIVALPROEX SODIUM 500 MG DR TABLET PO SCH ×2 (08:26→17:51)
[2018-08-12] MEDS: BENAZEPRIL HCL 5 MG TABLET PO SCH (08:26)
[2018-08-12 08:33] VITALS: BP 130/105
[2018-08-12] MEDS: HALOPERIDOL 5 MG TABLET PO PRN (10:39)
[2018-08-12] MEDS: SILVER 45 ML GEL TP SCH (10:41)
[2018-08-12] MEDS: CHLORHEXIDINE GLUCONATE 4% 118 ML TOPICAL LIQUID TP SCH (10:41)
[2018-08-12 11:19] LABS: GLUCOMETER DEV NAME(LOC) 3EX.; GLUCOSE,POINT OF CARE 100 MG/DL (70-110)
[2018-08-12 17:30] LABS: GLUCOMETER DEV NAME(LOC) 3EX.; GLUCOSE,POINT OF CARE 101 MG/DL (70-110)
[2018-08-12 21:39] LABS: GLUCOMETER DEV NAME(LOC) 3EX.; GLUCOSE,POINT OF CARE 112 MG/DL (70-110)
[2018-08-13 05:39] LABS: GLUCOMETER DEV NAME(LOC) 3EX.; GLUCOSE,POINT OF CARE 76 MG/DL (70-110)
[2018-08-13] MEDS: LEVOTHYROXINE SODIUM 50 MCG TABLET PO SCH (06:36)
[2018-08-13] MEDS: MetFORMIN HCL 500 MG TABLET PO SCH ×2 (06:37→17:06)
[2018-08-13] MEDS: FERROUS SULFATE 325 MG EC TABLET PO SCH ×2 (06:37→17:05)
[2018-08-13] MEDS: INSULIN LISPRO 100 UNITS/ML SQ PRN ×3 (06:37→17:07)
[2018-08-13] MEDS: HALOPERIDOL 5 MG TABLET PO PRN (09:59)
[2018-08-13] MEDS: DIVALPROEX SODIUM 500 MG DR TABLET PO SCH ×2 (09:59→17:05)
[2018-08-13] MEDS: FLUoxetine HCL 20 MG CAPSULE PO SCH (09:59)
[2018-08-13] MEDS: QUEtiapine FUMARATE 200 MG TABLET PO SCH ×2 (10:00→21:10)
[2018-08-13] MEDS: TOPIRAMATE 100 MG TABLET PO SCH ×3 (10:00→17:06)
[2018-08-13] MEDS: ASPIRIN 81 MG CHEWABLE TABLET PO SCH (10:00)
[2018-08-13] MEDS: LORATADINE 10 MG TABLET PO SCH (10:00)
[2018-08-13] MEDS: MULTIVITAMINS WITH MINERALS, THERAPEUTIC TABLET PO SCH (10:00)
[2018-08-13] MEDS: OXYBUTYNIN CHLORIDE 5 MG ER TABLET PO SCH (10:00)
[2018-08-13] MEDS: ASCORBIC ACID 500 MG TABLET PO SCH (10:00)
[2018-08-13] MEDS: SIMVASTATIN 20 MG TABLET PO SCH (10:00)
[2018-08-13] MEDS: LevETIRAcetam 250 MG TABLET PO SCH ×2 (10:00→17:05)
[2018-08-13] MEDS: BENAZEPRIL HCL 5 MG TABLET PO SCH (10:00)
[2018-08-13 11:29] LABS: GLUCOMETER DEV NAME(LOC) 3EX.; GLUCOSE,POINT OF CARE 155 MG/DL (70-110)
[2018-08-13] MEDS: SILVER 45 ML GEL TP SCH (12:39)
[2018-08-13] MEDS: CHLORHEXIDINE GLUCONATE 4% 118 ML TOPICAL LIQUID TP SCH (12:39)
[2018-08-13 16:11] VITALS: BP 83/51
[2018-08-13 17:14] LABS: GLUCOMETER DEV NAME(LOC) 3EX.; GLUCOSE,POINT OF CARE 144 MG/DL (70-110)
[2018-08-13 21:39] LABS: GLUCOMETER DEV NAME(LOC) 3EX.; GLUCOSE,POINT OF CARE 132 MG/DL (70-110)
[2018-08-14 06:09] LABS: GLUCOMETER DEV NAME(LOC) 3EX.; GLUCOSE,POINT OF CARE 75 MG/DL (70-110)
[2018-08-14] MEDS: FERROUS SULFATE 325 MG EC TABLET PO SCH ×2 (06:56→17:23)
[2018-08-14] MEDS: LEVOTHYROXINE SODIUM 50 MCG TABLET PO SCH (06:56)
[2018-08-14] MEDS: MetFORMIN HCL 500 MG TABLET PO SCH ×2 (06:56→17:23)
[2018-08-14 08:00] VITALS: BP 113/67
[2018-08-14] MEDS: LORATADINE 10 MG TABLET PO SCH (08:18)
[2018-08-14] MEDS: SIMVASTATIN 20 MG TABLET PO SCH (08:18)
[2018-08-14] MEDS: QUEtiapine FUMARATE 200 MG TABLET PO SCH ×2 (08:18→20:16)
[2018-08-14] MEDS: ASPIRIN 81 MG CHEWABLE TABLET PO SCH (08:18)
[2018-08-14] MEDS: FLUoxetine HCL 20 MG CAPSULE PO SCH (08:18)
[2018-08-14] MEDS: LevETIRAcetam 250 MG TABLET PO SCH ×2 (08:18→17:23)
[2018-08-14] MEDS: DIVALPROEX SODIUM 500 MG DR TABLET PO SCH ×2 (08:18→17:23)
[2018-08-14] MEDS: MULTIVITAMINS WITH MINERALS, THERAPEUTIC TABLET PO SCH (08:18)
[2018-08-14] MEDS: SILVER 45 ML GEL TP SCH (08:19)
[2018-08-14] MEDS: CHLORHEXIDINE GLUCONATE 4% 118 ML TOPICAL LIQUID TP SCH (08:19)
[2018-08-14] MEDS: BENAZEPRIL HCL 5 MG TABLET PO SCH (08:19)
[2018-08-14] MEDS: ASCORBIC ACID 500 MG TABLET PO SCH (08:19)
[2018-08-14] MEDS: OXYBUTYNIN CHLORIDE 5 MG ER TABLET PO SCH (08:19)
[2018-08-14] MEDS: TOPIRAMATE 100 MG TABLET PO SCH ×3 (08:19→17:23)
[2018-08-14 11:33] LABS: GLUCOMETER DEV NAME(LOC) 3EX.; GLUCOSE,POINT OF CARE 124 MG/DL (70-110)
[2018-08-14 16:16] VITALS: BP 89/51
[2018-08-14 17:20] LABS: GLUCOMETER DEV NAME(LOC) 3EX.; GLUCOSE,POINT OF CARE 115 MG/DL (70-110)
[2018-08-14 21:19] LABS: GLUCOMETER DEV NAME(LOC) 3E.I; GLUCOSE,POINT OF CARE 158 MG/DL (70-110)
[2018-08-14] MEDS: INSULIN LISPRO 100 UNITS/ML SQ PRN (21:27)
[2018-08-15 05:50] LABS: GLUCOMETER DEV NAME(LOC) 3E.I; GLUCOSE,POINT OF CARE 103 MG/DL (70-110)
[2018-08-15] MEDS: INSULIN LISPRO 100 UNITS/ML SQ PRN (06:54)
[2018-08-15] MEDS: FERROUS SULFATE 325 MG EC TABLET PO SCH ×2 (06:54→16:28)
[2018-08-15] MEDS: MetFORMIN HCL 500 MG TABLET PO SCH ×2 (06:54→16:28)
[2018-08-15] MEDS: LEVOTHYROXINE SODIUM 50 MCG TABLET PO SCH (06:54)
[2018-08-15] MEDS: DIVALPROEX SODIUM 500 MG DR TABLET PO SCH ×2 (08:01→16:28)
[2018-08-15] MEDS: MULTIVITAMINS WITH MINERALS, THERAPEUTIC TABLET PO SCH (08:01)
[2018-08-15] MEDS: QUEtiapine FUMARATE 200 MG TABLET PO SCH ×2 (08:01→20:56)
[2018-08-15] MEDS: OXYBUTYNIN CHLORIDE 5 MG ER TABLET PO SCH (08:02)
[2018-08-15] MEDS: LORATADINE 10 MG TABLET PO SCH (08:02)
[2018-08-15] MEDS: ASPIRIN 81 MG CHEWABLE TABLET PO SCH (08:02)
[2018-08-15] MEDS: LevETIRAcetam 250 MG TABLET PO SCH ×2 (08:02→16:27)
[2018-08-15] MEDS: SIMVASTATIN 20 MG TABLET PO SCH (08:02)
[2018-08-15] MEDS: ASCORBIC ACID 500 MG TABLET PO SCH (08:03)
[2018-08-15] MEDS: BENAZEPRIL HCL 5 MG TABLET PO SCH (08:03)
[2018-08-15] MEDS: CHLORHEXIDINE GLUCONATE 4% 118 ML TOPICAL LIQUID TP SCH (08:05)
[2018-08-15] MEDS: SILVER 45 ML GEL TP SCH (08:05)
[2018-08-15] MEDS: TOPIRAMATE 100 MG TABLET PO SCH ×3 (08:05→16:27)
[2018-08-15] MEDS: FLUoxetine HCL 20 MG CAPSULE PO SCH (08:06)
[2018-08-15 08:10] VITALS: BP 91/59
[2018-08-15] MEDS: HALOPERIDOL 5 MG TABLET PO PRN (08:11)
[2018-08-15 11:24] LABS: GLUCOMETER DEV NAME(LOC) 3E.I; GLUCOSE,POINT OF CARE 107 MG/DL (70-110)
[2018-08-15 16:39] LABS: GLUCOMETER DEV NAME(LOC) 3E.I; GLUCOSE,POINT OF CARE 100 MG/DL (70-110)
[2018-08-15 18:32] VITALS: BP 110/69
[2018-08-15 21:19] LABS: GLUCOMETER DEV NAME(LOC) 3E.I; GLUCOSE,POINT OF CARE 126 MG/DL (70-110)
[2018-08-16 06:20] LABS: GLUCOMETER DEV NAME(LOC) 3E.I; GLUCOSE,POINT OF CARE 88 MG/DL (70-110)
[2018-08-16] MEDS: LEVOTHYROXINE SODIUM 50 MCG TABLET PO SCH (07:00)
[2018-08-16] MEDS: FERROUS SULFATE 325 MG EC TABLET PO SCH ×2 (07:03→17:04)
[2018-08-16] MEDS: MetFORMIN HCL 500 MG TABLET PO SCH ×2 (07:03→17:04)
[2018-08-16] MEDS: INSULIN LISPRO 100 UNITS/ML SQ PRN ×2 (07:04→21:33)
[2018-08-16 08:05] VITALS: BP 116/54
[2018-08-16] MEDS: FLUoxetine HCL 20 MG CAPSULE PO SCH (09:54)
[2018-08-16] MEDS: HALOPERIDOL 5 MG TABLET PO PRN (09:54)
[2018-08-16] MEDS: BENAZEPRIL HCL 5 MG TABLET PO SCH (09:54)
[2018-08-16] MEDS: ASPIRIN 81 MG CHEWABLE TABLET PO SCH (09:54)
[2018-08-16] MEDS: LORATADINE 10 MG TABLET PO SCH (09:54)
[2018-08-16] MEDS: TOPIRAMATE 100 MG TABLET PO SCH ×3 (09:54→17:04)
[2018-08-16] MEDS: OXYBUTYNIN CHLORIDE 5 MG ER TABLET PO SCH (09:54)
[2018-08-16] MEDS: SIMVASTATIN 20 MG TABLET PO SCH (09:54)
[2018-08-16] MEDS: LevETIRAcetam 250 MG TABLET PO SCH ×2 (09:54→17:04)
[2018-08-16] MEDS: DIVALPROEX SODIUM 500 MG DR TABLET PO SCH ×2 (09:54→17:03)
[2018-08-16] MEDS: ASCORBIC ACID 500 MG TABLET PO SCH (09:54)
[2018-08-16] MEDS: QUEtiapine FUMARATE 200 MG TABLET PO SCH ×2 (09:55→21:01)
[2018-08-16] MEDS: MULTIVITAMINS WITH MINERALS, THERAPEUTIC TABLET PO SCH (09:55)
[2018-08-16] MEDS: SILVER 45 ML GEL TP SCH (10:19)
[2018-08-16] MEDS: CHLORHEXIDINE GLUCONATE 4% 118 ML TOPICAL LIQUID TP SCH (10:19)
[2018-08-16 11:50] LABS: GLUCOMETER DEV NAME(LOC) 3E.I; GLUCOSE,POINT OF CARE 108 MG/DL (70-110)
[2018-08-16 17:04] LABS: GLUCOMETER DEV NAME(LOC) 3E.I; GLUCOSE,POINT OF CARE 126 MG/DL (70-110)
[2018-08-16 18:10] VITALS: BP 115/69
[2018-08-17] MEDS: MetFORMIN HCL 500 MG TABLET PO SCH ×2 (07:13→16:53)
[2018-08-17] MEDS: FERROUS SULFATE 325 MG EC TABLET PO SCH ×2 (07:13→16:53)
[2018-08-17] MEDS: LEVOTHYROXINE SODIUM 50 MCG TABLET PO SCH (07:13)
[2018-08-17] MEDS: INSULIN LISPRO 100 UNITS/ML SQ PRN (07:14)
[2018-08-17 08:00] VITALS: BP 114/61
[2018-08-17] MEDS: MULTIVITAMINS WITH MINERALS, THERAPEUTIC TABLET PO SCH (08:15)
[2018-08-17] MEDS: ASPIRIN 81 MG CHEWABLE TABLET PO SCH (08:15)
[2018-08-17] MEDS: DIVALPROEX SODIUM 500 MG DR TABLET PO SCH ×2 (08:15→16:53)
[2018-08-17] MEDS: FLUoxetine HCL 20 MG CAPSULE PO SCH (08:15)
[2018-08-17] MEDS: QUEtiapine FUMARATE 200 MG TABLET PO SCH ×2 (08:15→20:04)
[2018-08-17] MEDS: OXYBUTYNIN CHLORIDE 5 MG ER TABLET PO SCH (08:15)
[2018-08-17] MEDS: SIMVASTATIN 20 MG TABLET PO SCH (08:15)
[2018-08-17] MEDS: ASCORBIC ACID 500 MG TABLET PO SCH (08:15)
[2018-08-17] MEDS: TOPIRAMATE 100 MG TABLET PO SCH ×3 (08:15→16:53)
[2018-08-17] MEDS: BENAZEPRIL HCL 5 MG TABLET PO SCH (08:16)
[2018-08-17] MEDS: LORATADINE 10 MG TABLET PO SCH (08:16)
[2018-08-17] MEDS: HALOPERIDOL 5 MG TABLET PO PRN (08:16)
[2018-08-17 09:39] LABS: GLUCOMETER DEV NAME(LOC) 3E.I; GLUCOSE,POINT OF CARE 290 MG/DL (70-110)
[2018-08-17 09:50] LABS: GLUCOMETER DEV NAME(LOC) 3E.I; GLUCOSE,POINT OF CARE 92 MG/DL (70-110)
[2018-08-17] MEDS: CHLORHEXIDINE GLUCONATE 4% 118 ML TOPICAL LIQUID TP SCH (10:37)
[2018-08-17] MEDS: SILVER 45 ML GEL TP SCH (10:37)
[2018-08-17] MEDS: LevETIRAcetam 250 MG TABLET PO SCH ×2 (10:37→16:53)
[2018-08-17 16:10] LABS: GLUCOMETER DEV NAME(LOC) 3E.I; GLUCOSE,POINT OF CARE 83 MG/DL (70-110)
[2018-08-17 18:39] VITALS: BP 112/73
[2018-08-17 20:32] LABS: GLUCOMETER DEV NAME(LOC) 3E.I; GLUCOSE,POINT OF CARE 139 MG/DL (70-110)
[2018-08-18 05:56] LABS: GLUCOMETER DEV NAME(LOC) 3E.I; GLUCOSE,POINT OF CARE 102 MG/DL (70-110)
[2018-08-18] MEDS: LEVOTHYROXINE SODIUM 50 MCG TABLET PO SCH (07:00)
[2018-08-18] MEDS: FERROUS SULFATE 325 MG EC TABLET PO SCH ×2 (07:03→17:57)
[2018-08-18] MEDS: MetFORMIN HCL 500 MG TABLET PO SCH ×2 (07:03→17:57)
[2018-08-18] MEDS: INSULIN LISPRO 100 UNITS/ML SQ PRN ×3 (07:17→17:56)
[2018-08-18] MEDS: LevETIRAcetam 250 MG TABLET PO SCH ×2 (08:22→17:57)
[2018-08-18] MEDS: MULTIVITAMINS WITH MINERALS, THERAPEUTIC TABLET PO SCH (08:23)
[2018-08-18] MEDS: BENAZEPRIL HCL 5 MG TABLET PO SCH (08:23)
[2018-08-18] MEDS: QUEtiapine FUMARATE 200 MG TABLET PO SCH ×2 (08:23→21:07)
[2018-08-18] MEDS: LORATADINE 10 MG TABLET PO SCH (08:23)
[2018-08-18] MEDS: DIVALPROEX SODIUM 500 MG DR TABLET PO SCH ×2 (08:23→17:57)
[2018-08-18] MEDS: SIMVASTATIN 20 MG TABLET PO SCH (08:24)
[2018-08-18] MEDS: FLUoxetine HCL 20 MG CAPSULE PO SCH (08:24)
[2018-08-18] MEDS: ASPIRIN 81 MG CHEWABLE TABLET PO SCH (08:24)
[2018-08-18] MEDS: OXYBUTYNIN CHLORIDE 5 MG ER TABLET PO SCH (08:24)
[2018-08-18] MEDS: ASCORBIC ACID 500 MG TABLET PO SCH (08:25)
[2018-08-18] MEDS: TOPIRAMATE 100 MG TABLET PO SCH ×3 (08:25→17:57)
[2018-08-18] MEDS: HALOPERIDOL 5 MG TABLET PO PRN (08:25)
[2018-08-18 11:38] LABS: GLUCOMETER DEV NAME(LOC) 3E.I; GLUCOSE,POINT OF CARE 146 MG/DL (70-110)
[2018-08-18] MEDS: CHLORHEXIDINE GLUCONATE 4% 118 ML TOPICAL LIQUID TP SCH (14:52)
[2018-08-18] MEDS: SILVER 45 ML GEL TP SCH (14:52)
[2018-08-18 16:59] LABS: GLUCOMETER DEV NAME(LOC) 3E.I; GLUCOSE,POINT OF CARE 214 MG/DL (70-110)
[2018-08-18 18:53] VITALS: BP 110/69
[2018-08-18 22:14] LABS: GLUCOMETER DEV NAME(LOC) 3E.I; GLUCOSE,POINT OF CARE 92 MG/DL (70-110)
[2018-08-19 06:19] LABS: GLUCOMETER DEV NAME(LOC) 3E.I; GLUCOSE,POINT OF CARE 127 MG/DL (70-110)
[2018-08-19] MEDS: MetFORMIN HCL 500 MG TABLET PO SCH ×2 (07:12→17:24)
[2018-08-19] MEDS: LEVOTHYROXINE SODIUM 50 MCG TABLET PO SCH (07:12)
[2018-08-19] MEDS: FERROUS SULFATE 325 MG EC TABLET PO SCH ×2 (07:12→17:24)
[2018-08-19 08:05] VITALS: BP 103/64
[2018-08-19] MEDS: LORATADINE 10 MG TABLET PO SCH (08:29)
[2018-08-19] MEDS: MULTIVITAMINS WITH MINERALS, THERAPEUTIC TABLET PO SCH (08:29)
[2018-08-19] MEDS: FLUoxetine HCL 20 MG CAPSULE PO SCH (08:29)
[2018-08-19] MEDS: DIVALPROEX SODIUM 500 MG DR TABLET PO SCH ×2 (08:30→17:24)
[2018-08-19] MEDS: QUEtiapine FUMARATE 200 MG TABLET PO SCH ×2 (08:30→20:40)
[2018-08-19] MEDS: ASPIRIN 81 MG CHEWABLE TABLET PO SCH (08:31)
[2018-08-19] MEDS: TOPIRAMATE 100 MG TABLET PO SCH ×3 (08:31→17:24)
[2018-08-19] MEDS: SIMVASTATIN 20 MG TABLET PO SCH (08:31)
[2018-08-19] MEDS: LevETIRAcetam 250 MG TABLET PO SCH ×2 (08:32→17:24)
[2018-08-19] MEDS: OXYBUTYNIN CHLORIDE 5 MG ER TABLET PO SCH (08:32)
[2018-08-19] MEDS: ASCORBIC ACID 500 MG TABLET PO SCH (08:32)
[2018-08-19] MEDS: BENAZEPRIL HCL 5 MG TABLET PO SCH (08:32)
[2018-08-19] MEDS: CHLORHEXIDINE GLUCONATE 4% 118 ML TOPICAL LIQUID TP SCH (08:33)
[2018-08-19] MEDS: SILVER 45 ML GEL TP SCH (08:33)
[2018-08-19] MEDS: HALOPERIDOL 5 MG TABLET PO PRN (08:34)
[2018-08-19 11:28] LABS: GLUCOMETER DEV NAME(LOC) 3E.I; GLUCOSE,POINT OF CARE 111 MG/DL (70-110)
[2018-08-19 16:22] VITALS: BP 110/81
[2018-08-19] MEDS: INSULIN LISPRO 100 UNITS/ML SQ PRN ×2 (17:41→21:53)
[2018-08-19 17:44] LABS: GLUCOMETER DEV NAME(LOC) 3E.I; GLUCOSE,POINT OF CARE 168 MG/DL (70-110)
[2018-08-19 21:59] LABS: GLUCOMETER DEV NAME(LOC) 3E.I; GLUCOSE,POINT OF CARE 142 MG/DL (70-110)
[2018-08-20 06:04] LABS: GLUCOMETER DEV NAME(LOC) 3E.I; GLUCOSE,POINT OF CARE 124 MG/DL (70-110)
[2018-08-20] MEDS: LEVOTHYROXINE SODIUM 50 MCG TABLET PO SCH (06:45)
[2018-08-20] MEDS: FERROUS SULFATE 325 MG EC TABLET PO SCH ×2 (06:45→16:32)
[2018-08-20] MEDS: MetFORMIN HCL 500 MG TABLET PO SCH ×2 (06:45→16:32)
[2018-08-20] MEDS: FLUoxetine HCL 20 MG CAPSULE PO SCH (09:00)
[2018-08-20] MEDS: DIVALPROEX SODIUM 500 MG DR TABLET PO SCH ×2 (09:00→16:32)
[2018-08-20] MEDS: SIMVASTATIN 20 MG TABLET PO SCH (09:00)
[2018-08-20] MEDS: LevETIRAcetam 250 MG TABLET PO SCH ×2 (09:00→16:32)
[2018-08-20] MEDS: LORATADINE 10 MG TABLET PO SCH (09:00)
[2018-08-20] MEDS: ASCORBIC ACID 500 MG TABLET PO SCH (09:00)
[2018-08-20] MEDS: ASPIRIN 81 MG CHEWABLE TABLET PO SCH (09:00)
[2018-08-20] MEDS: OXYBUTYNIN CHLORIDE 5 MG ER TABLET PO SCH (09:00)
[2018-08-20] MEDS: QUEtiapine FUMARATE 200 MG TABLET PO SCH ×2 (09:00→20:04)
[2018-08-20] MEDS: TOPIRAMATE 100 MG TABLET PO SCH ×3 (09:00→16:32)
[2018-08-20] MEDS: MULTIVITAMINS WITH MINERALS, THERAPEUTIC TABLET PO SCH (09:00)
[2018-08-20] MEDS: BENAZEPRIL HCL 5 MG TABLET PO SCH (09:00)
[2018-08-20] MEDS: SILVER 45 ML GEL TP SCH (09:40)
[2018-08-20] MEDS: CHLORHEXIDINE GLUCONATE 4% 118 ML TOPICAL LIQUID TP SCH (09:40)
[2018-08-20 16:11] VITALS: BP 112/69
[2018-08-20 16:24] LABS: GLUCOMETER DEV NAME(LOC) 3EX.; GLUCOSE,POINT OF CARE 173 MG/DL (70-110)
[2018-08-20] MEDS: INSULIN LISPRO 100 UNITS/ML SQ PRN (17:42)
[2018-08-20 21:13] LABS: GLUCOMETER DEV NAME(LOC) 3EX.; GLUCOSE,POINT OF CARE 115 MG/DL (70-110)
[2018-08-21 06:04] LABS: GLUCOMETER DEV NAME(LOC) 3EX.; GLUCOSE,POINT OF CARE 112 MG/DL (70-110)
[2018-08-21] MEDS: FERROUS SULFATE 325 MG EC TABLET PO SCH ×2 (07:02→16:38)
[2018-08-21] MEDS: MetFORMIN HCL 500 MG TABLET PO SCH ×2 (07:02→16:38)
[2018-08-21] MEDS: LEVOTHYROXINE SODIUM 50 MCG TABLET PO SCH (07:03)
[2018-08-21 08:05] VITALS: BP 109/67
[2018-08-21] MEDS: DOCUSATE SODIUM 100 MG CAPSULE PO PRN (08:25)
[2018-08-21] MEDS: MULTIVITAMINS WITH MINERALS, THERAPEUTIC TABLET PO SCH (08:25)
[2018-08-21] MEDS: LORATADINE 10 MG TABLET PO SCH (08:25)
[2018-08-21] MEDS: ASPIRIN 81 MG CHEWABLE TABLET PO SCH (08:25)
[2018-08-21] MEDS: FLUoxetine HCL 20 MG CAPSULE PO SCH (08:25)
[2018-08-21] MEDS: QUEtiapine FUMARATE 200 MG TABLET PO SCH ×2 (08:25→20:28)
[2018-08-21] MEDS: HALOPERIDOL 5 MG TABLET PO PRN (08:25)
[2018-08-21] MEDS: SIMVASTATIN 20 MG TABLET PO SCH (08:25)
[2018-08-21] MEDS: DIVALPROEX SODIUM 500 MG DR TABLET PO SCH ×2 (08:25→16:39)
[2018-08-21] MEDS: LevETIRAcetam 250 MG TABLET PO SCH ×2 (08:26→16:39)
[2018-08-21] MEDS: OXYBUTYNIN CHLORIDE 5 MG ER TABLET PO SCH (08:26)
[2018-08-21] MEDS: BENAZEPRIL HCL 5 MG TABLET PO SCH (08:26)
[2018-08-21] MEDS: TOPIRAMATE 100 MG TABLET PO SCH ×3 (08:26→16:39)
[2018-08-21] MEDS: ASCORBIC ACID 500 MG TABLET PO SCH (08:26)
[2018-08-21] MEDS: CHLORHEXIDINE GLUCONATE 4% 118 ML TOPICAL LIQUID TP SCH (13:24)
[2018-08-21] MEDS: SILVER 45 ML GEL TP SCH (13:24)
[2018-08-21 16:19] LABS: GLUCOMETER DEV NAME(LOC) 3EX.; GLUCOSE,POINT OF CARE 100 MG/DL (70-110)
[2018-08-21 16:32] VITALS: BP 109/70
[2018-08-22 06:04] LABS: GLUCOMETER DEV NAME(LOC) 3EX.; GLUCOSE,POINT OF CARE 130 MG/DL (70-110)
[2018-08-22] MEDS: FERROUS SULFATE 325 MG EC TABLET PO SCH ×2 (06:50→16:57)
[2018-08-22] MEDS: MetFORMIN HCL 500 MG TABLET PO SCH ×2 (06:50→16:57)
[2018-08-22] MEDS: LEVOTHYROXINE SODIUM 50 MCG TABLET PO SCH (06:50)
[2018-08-22] MEDS: FLUoxetine HCL 20 MG CAPSULE PO SCH (08:21)
[2018-08-22] MEDS: QUEtiapine FUMARATE 200 MG TABLET PO SCH ×2 (08:21→20:23)
[2018-08-22] MEDS: DIVALPROEX SODIUM 500 MG DR TABLET PO SCH ×2 (08:21→16:57)
[2018-08-22] MEDS: ASCORBIC ACID 500 MG TABLET PO SCH (08:22)
[2018-08-22] MEDS: ASPIRIN 81 MG CHEWABLE TABLET PO SCH (08:22)
[2018-08-22] MEDS: LevETIRAcetam 250 MG TABLET PO SCH ×2 (08:22→16:58)
[2018-08-22] MEDS: BENAZEPRIL HCL 5 MG TABLET PO SCH (08:22)
[2018-08-22] MEDS: SIMVASTATIN 20 MG TABLET PO SCH (08:22)
[2018-08-22] MEDS: MULTIVITAMINS WITH MINERALS, THERAPEUTIC TABLET PO SCH (08:22)
[2018-08-22] MEDS: SILVER 45 ML GEL TP SCH (08:23)
[2018-08-22] MEDS: LORATADINE 10 MG TABLET PO SCH (08:23)
[2018-08-22] MEDS: OXYBUTYNIN CHLORIDE 5 MG ER TABLET PO SCH (08:23)
[2018-08-22] MEDS: CHLORHEXIDINE GLUCONATE 4% 118 ML TOPICAL LIQUID TP SCH (08:23)
[2018-08-22] MEDS: TOPIRAMATE 100 MG TABLET PO SCH ×3 (08:23→16:57)
[2018-08-22 11:28] LABS: GLUCOMETER DEV NAME(LOC) 3EX.; GLUCOSE,POINT OF CARE 129 MG/DL (70-110)
[2018-08-22] MEDS: HALOPERIDOL 5 MG TABLET PO PRN (12:47)
[2018-08-22 17:24] LABS: GLUCOMETER DEV NAME(LOC) 3EX.; GLUCOSE,POINT OF CARE 145 MG/DL (70-110)
[2018-08-22] MEDS: INSULIN LISPRO 100 UNITS/ML SQ PRN (17:28)
[2018-08-22 18:11] VITALS: BP 101/60
[2018-08-23] MEDS: LEVOTHYROXINE SODIUM 50 MCG TABLET PO SCH (06:50)
[2018-08-23] MEDS: FERROUS SULFATE 325 MG EC TABLET PO SCH ×2 (06:50→16:33)
[2018-08-23] MEDS: MetFORMIN HCL 500 MG TABLET PO SCH ×2 (06:50→16:32)
[2018-08-23] MEDS: SIMVASTATIN 20 MG TABLET PO SCH (08:17)
[2018-08-23] MEDS: DIVALPROEX SODIUM 500 MG DR TABLET PO SCH ×2 (08:17→16:33)
[2018-08-23] MEDS: MULTIVITAMINS WITH MINERALS, THERAPEUTIC TABLET PO SCH (08:17)
[2018-08-23] MEDS: LORATADINE 10 MG TABLET PO SCH (08:17)
[2018-08-23] MEDS: QUEtiapine FUMARATE 200 MG TABLET PO SCH ×2 (08:17→20:30)
[2018-08-23] MEDS: TOPIRAMATE 100 MG TABLET PO SCH ×3 (08:18→16:33)
[2018-08-23] MEDS: FLUoxetine HCL 20 MG CAPSULE PO SCH (08:18)
[2018-08-23] MEDS: CHLORHEXIDINE GLUCONATE 4% 118 ML TOPICAL LIQUID TP SCH (08:18)
[2018-08-23] MEDS: ASCORBIC ACID 500 MG TABLET PO SCH (08:18)
[2018-08-23] MEDS: ASPIRIN 81 MG CHEWABLE TABLET PO SCH (08:18)
[2018-08-23] MEDS: OXYBUTYNIN CHLORIDE 5 MG ER TABLET PO SCH (08:18)
[2018-08-23] MEDS: LevETIRAcetam 250 MG TABLET PO SCH ×2 (08:18→16:33)
[2018-08-23] MEDS: HALOPERIDOL 5 MG TABLET PO PRN (08:19)
[2018-08-23] MEDS: SILVER 45 ML GEL TP SCH (08:19)
[2018-08-23] MEDS: BENAZEPRIL HCL 5 MG TABLET PO SCH (08:19)
[2018-08-23 11:24] LABS: GLUCOMETER DEV NAME(LOC) 3EX.; GLUCOSE,POINT OF CARE 113 MG/DL (70-110)
[2018-08-23 16:23] LABS: GLUCOMETER DEV NAME(LOC) 3EX.; GLUCOSE,POINT OF CARE 77 MG/DL (70-110)
[2018-08-23 18:21] VITALS: BP 105/79
[2018-08-23 20:50] LABS: GLUCOMETER DEV NAME(LOC) 3EX.; GLUCOSE,POINT OF CARE 128 MG/DL (70-110)
[2018-08-24 05:39] LABS: GLUCOMETER DEV NAME(LOC) 3EX.; GLUCOSE,POINT OF CARE 104 MG/DL (70-110)
[2018-08-24] MEDS: FERROUS SULFATE 325 MG EC TABLET PO SCH ×2 (07:00→16:28)
[2018-08-24] MEDS: MetFORMIN HCL 500 MG TABLET PO SCH ×2 (07:00→16:28)
[2018-08-24] MEDS: LEVOTHYROXINE SODIUM 50 MCG TABLET PO SCH (07:00)
[2018-08-24] MEDS: INSULIN LISPRO 100 UNITS/ML SQ PRN (07:11)
[2018-08-24] MEDS: LORATADINE 10 MG TABLET PO SCH (08:00)
[2018-08-24] MEDS: TOPIRAMATE 100 MG TABLET PO SCH ×3 (08:00→16:28)
[2018-08-24] MEDS: LevETIRAcetam 250 MG TABLET PO SCH ×2 (08:00→16:28)
[2018-08-24] MEDS: ASPIRIN 81 MG CHEWABLE TABLET PO SCH (08:00)
[2018-08-24] MEDS: QUEtiapine FUMARATE 200 MG TABLET PO SCH ×2 (08:00→20:16)
[2018-08-24] MEDS: DIVALPROEX SODIUM 500 MG DR TABLET PO SCH ×2 (08:01→16:28)
[2018-08-24] MEDS: MULTIVITAMINS WITH MINERALS, THERAPEUTIC TABLET PO SCH (08:01)
[2018-08-24] MEDS: OXYBUTYNIN CHLORIDE 5 MG ER TABLET PO SCH (08:01)
[2018-08-24] MEDS: FLUoxetine HCL 20 MG CAPSULE PO SCH (08:02)
[2018-08-24] MEDS: ASCORBIC ACID 500 MG TABLET PO SCH (08:02)
[2018-08-24] MEDS: BENAZEPRIL HCL 5 MG TABLET PO SCH (08:03)
[2018-08-24] MEDS: CHLORHEXIDINE GLUCONATE 4% 118 ML TOPICAL LIQUID TP SCH (08:04)
[2018-08-24] MEDS: SIMVASTATIN 20 MG TABLET PO SCH (08:04)
[2018-08-24] MEDS: SILVER 45 ML GEL TP SCH (08:04)
[2018-08-24] MEDS: HALOPERIDOL 5 MG TABLET PO PRN (09:06)
[2018-08-24 17:34] LABS: GLUCOMETER DEV NAME(LOC) 3EX.; GLUCOSE,POINT OF CARE 137 MG/DL (70-110)
[2018-08-24 20:45] LABS: GLUCOMETER DEV NAME(LOC) 3EX.; GLUCOSE,POINT OF CARE 125 MG/DL (70-110)
[2018-08-25 05:29] LABS: GLUCOMETER DEV NAME(LOC) 3EX.; GLUCOSE,POINT OF CARE 104 MG/DL (70-110)
[2018-08-25] MEDS: LEVOTHYROXINE SODIUM 50 MCG TABLET PO SCH (06:38)
[2018-08-25] MEDS: FERROUS SULFATE 325 MG EC TABLET PO SCH ×2 (06:38→16:29)
[2018-08-25] MEDS: MetFORMIN HCL 500 MG TABLET PO SCH ×2 (06:38→16:29)
[2018-08-25 08:05] VITALS: BP 107/76
[2018-08-25] MEDS: TOPIRAMATE 100 MG TABLET PO SCH ×3 (08:06→16:29)
[2018-08-25] MEDS: FLUoxetine HCL 20 MG CAPSULE PO SCH (08:06)
[2018-08-25] MEDS: QUEtiapine FUMARATE 200 MG TABLET PO SCH ×2 (08:06→20:27)
[2018-08-25] MEDS: LORATADINE 10 MG TABLET PO SCH (08:06)
[2018-08-25] MEDS: ASCORBIC ACID 500 MG TABLET PO SCH (08:06)
[2018-08-25] MEDS: ASPIRIN 81 MG CHEWABLE TABLET PO SCH (08:06)
[2018-08-25] MEDS: LevETIRAcetam 250 MG TABLET PO SCH ×2 (08:06→16:28)
[2018-08-25] MEDS: DIVALPROEX SODIUM 500 MG DR TABLET PO SCH ×2 (08:07→16:28)
[2018-08-25] MEDS: MULTIVITAMINS WITH MINERALS, THERAPEUTIC TABLET PO SCH (08:07)
[2018-08-25] MEDS: OXYBUTYNIN CHLORIDE 5 MG ER TABLET PO SCH (08:07)
[2018-08-25] MEDS: HALOPERIDOL 5 MG TABLET PO PRN (08:07)
[2018-08-25] MEDS: SIMVASTATIN 20 MG TABLET PO SCH (08:07)
[2018-08-25] MEDS: CHLORHEXIDINE GLUCONATE 4% 118 ML TOPICAL LIQUID TP SCH (08:08)
[2018-08-25] MEDS: SILVER 45 ML GEL TP SCH (08:08)
[2018-08-25] MEDS: BENAZEPRIL HCL 5 MG TABLET PO SCH (08:08)
[2018-08-25 11:18] LABS: GLUCOMETER DEV NAME(LOC) 3EX.; GLUCOSE,POINT OF CARE 99 MG/DL (70-110)
[2018-08-25 16:13] LABS: GLUCOMETER DEV NAME(LOC) 3EX.; GLUCOSE,POINT OF CARE 107 MG/DL (70-110)
[2018-08-25 17:17] VITALS: BP 102/65
[2018-08-25 20:13] LABS: GLUCOMETER DEV NAME(LOC) 3EX.; GLUCOSE,POINT OF CARE 75 MG/DL (70-110)
[2018-08-26 06:24] LABS: GLUCOMETER DEV NAME(LOC) 3EX.; GLUCOSE,POINT OF CARE 139 MG/DL (70-110)
[2018-08-26] MEDS: MetFORMIN HCL 500 MG TABLET PO SCH ×2 (06:55→18:21)
[2018-08-26] MEDS: LEVOTHYROXINE SODIUM 50 MCG TABLET PO SCH (06:55)
[2018-08-26] MEDS: FERROUS SULFATE 325 MG EC TABLET PO SCH ×2 (06:55→18:21)
[2018-08-26] MEDS: INSULIN LISPRO 100 UNITS/ML SQ PRN ×3 (06:56→20:50)
[2018-08-26 08:05] VITALS: BP 117/42
[2018-08-26] MEDS: HALOPERIDOL 5 MG TABLET PO PRN (08:42)
[2018-08-26] MEDS: OXYBUTYNIN CHLORIDE 5 MG ER TABLET PO SCH (08:43)
[2018-08-26] MEDS: QUEtiapine FUMARATE 200 MG TABLET PO SCH ×2 (08:43→20:52)
[2018-08-26] MEDS: FLUoxetine HCL 20 MG CAPSULE PO SCH (08:43)
[2018-08-26] MEDS: SIMVASTATIN 20 MG TABLET PO SCH (08:43)
[2018-08-26] MEDS: DIVALPROEX SODIUM 500 MG DR TABLET PO SCH ×2 (08:43→18:21)
[2018-08-26] MEDS: MULTIVITAMINS WITH MINERALS, THERAPEUTIC TABLET PO SCH (08:43)
[2018-08-26] MEDS: LORATADINE 10 MG TABLET PO SCH (08:43)
[2018-08-26] MEDS: ASCORBIC ACID 500 MG TABLET PO SCH (08:43)
[2018-08-26] MEDS: ASPIRIN 81 MG CHEWABLE TABLET PO SCH (08:44)
[2018-08-26] MEDS: BENAZEPRIL HCL 5 MG TABLET PO SCH (08:44)
[2018-08-26] MEDS: LevETIRAcetam 250 MG TABLET PO SCH ×2 (08:44→18:21)
[2018-08-26] MEDS: TOPIRAMATE 100 MG TABLET PO SCH ×3 (08:44→18:21)
[2018-08-26] MEDS: CHLORHEXIDINE GLUCONATE 4% 118 ML TOPICAL LIQUID TP SCH (10:42)
[2018-08-26] MEDS: SILVER 45 ML GEL TP SCH (10:43)
[2018-08-26 11:19] LABS: GLUCOMETER DEV NAME(LOC) 3EX.; GLUCOSE,POINT OF CARE 147 MG/DL (70-110)
[2018-08-26 16:09] VITALS: BP 115/61
[2018-08-26 16:33] LABS: GLUCOMETER DEV NAME(LOC) 3EX.; GLUCOSE,POINT OF CARE 113 MG/DL (70-110)
[2018-08-26 20:59] LABS: GLUCOMETER DEV NAME(LOC) 3EX.; GLUCOSE,POINT OF CARE 166 MG/DL (70-110)
[2018-08-27 05:53] LABS: GLUCOMETER DEV NAME(LOC) 3EX.; GLUCOSE,POINT OF CARE 84 MG/DL (70-110)
[2018-08-27] MEDS: LEVOTHYROXINE SODIUM 50 MCG TABLET PO SCH (06:37)
[2018-08-27] MEDS: FERROUS SULFATE 325 MG EC TABLET PO SCH ×2 (06:38→17:18)
[2018-08-27] MEDS: MetFORMIN HCL 500 MG TABLET PO SCH ×2 (06:38→17:18)
[2018-08-27 08:05] VITALS: BP 101/67
[2018-08-27] MEDS: HALOPERIDOL 5 MG TABLET PO PRN (09:16)
[2018-08-27] MEDS: MULTIVITAMINS WITH MINERALS, THERAPEUTIC TABLET PO SCH (09:17)
[2018-08-27] MEDS: DIVALPROEX SODIUM 500 MG DR TABLET PO SCH ×2 (09:17→17:19)
[2018-08-27] MEDS: ASCORBIC ACID 500 MG TABLET PO SCH (09:17)
[2018-08-27] MEDS: LORATADINE 10 MG TABLET PO SCH (09:17)
[2018-08-27] MEDS: SIMVASTATIN 20 MG TABLET PO SCH (09:17)
[2018-08-27] MEDS: QUEtiapine FUMARATE 200 MG TABLET PO SCH ×2 (09:17→20:40)
[2018-08-27] MEDS: OXYBUTYNIN CHLORIDE 5 MG ER TABLET PO SCH (09:17)
[2018-08-27] MEDS: BENAZEPRIL HCL 5 MG TABLET PO SCH (09:17)
[2018-08-27] MEDS: FLUoxetine HCL 20 MG CAPSULE PO SCH (09:17)
[2018-08-27] MEDS: LevETIRAcetam 250 MG TABLET PO SCH ×2 (09:18→17:19)
[2018-08-27] MEDS: ASPIRIN 81 MG CHEWABLE TABLET PO SCH (09:18)
[2018-08-27] MEDS: TOPIRAMATE 100 MG TABLET PO SCH ×3 (09:18→17:19)
[2018-08-27] MEDS: SILVER 45 ML GEL TP SCH (09:31)
[2018-08-27] MEDS: CHLORHEXIDINE GLUCONATE 4% 118 ML TOPICAL LIQUID TP SCH (09:31)
[2018-08-27 11:24] LABS: GLUCOMETER DEV NAME(LOC) 3EX.; GLUCOSE,POINT OF CARE 126 MG/DL (70-110)
[2018-08-27] MEDS: INSULIN LISPRO 100 UNITS/ML SQ PRN (11:31)
[2018-08-27 16:54] VITALS: BP 111/76
[2018-08-27 17:34] LABS: GLUCOMETER DEV NAME(LOC) 3EX.; GLUCOSE,POINT OF CARE 121 MG/DL (70-110)
[2018-08-27 20:44] LABS: GLUCOMETER DEV NAME(LOC) 3EX.; GLUCOSE,POINT OF CARE 82 MG/DL (70-110)
[2018-08-28 06:13] LABS: GLUCOMETER DEV NAME(LOC) 3EX.; GLUCOSE,POINT OF CARE 98 MG/DL (70-110)
[2018-08-28] MEDS: FERROUS SULFATE 325 MG EC TABLET PO SCH ×2 (06:54→17:07)
[2018-08-28] MEDS: LEVOTHYROXINE SODIUM 50 MCG TABLET PO SCH (06:54)
[2018-08-28] MEDS: MetFORMIN HCL 500 MG TABLET PO SCH ×2 (06:54→17:07)
[2018-08-28] MEDS: INSULIN LISPRO 100 UNITS/ML SQ PRN ×2 (07:04→12:40)
[2018-08-28 08:05] VITALS: BP 108/69
[2018-08-28] MEDS: TOPIRAMATE 100 MG TABLET PO SCH ×3 (08:38→17:07)
[2018-08-28] MEDS: MULTIVITAMINS WITH MINERALS, THERAPEUTIC TABLET PO SCH (08:38)
[2018-08-28] MEDS: ASCORBIC ACID 500 MG TABLET PO SCH (08:38)
[2018-08-28] MEDS: QUEtiapine FUMARATE 200 MG TABLET PO SCH ×2 (08:39→20:22)
[2018-08-28] MEDS: SIMVASTATIN 20 MG TABLET PO SCH (08:39)
[2018-08-28] MEDS: HALOPERIDOL 5 MG TABLET PO PRN (08:39)
[2018-08-28] MEDS: BENAZEPRIL HCL 5 MG TABLET PO SCH (08:39)
[2018-08-28] MEDS: OXYBUTYNIN CHLORIDE 5 MG ER TABLET PO SCH (08:39)
[2018-08-28] MEDS: ASPIRIN 81 MG CHEWABLE TABLET PO SCH (08:39)
[2018-08-28] MEDS: LORATADINE 10 MG TABLET PO SCH (08:39)
[2018-08-28] MEDS: FLUoxetine HCL 20 MG CAPSULE PO SCH (08:39)
[2018-08-28] MEDS: DIVALPROEX SODIUM 500 MG DR TABLET PO SCH ×2 (08:40→17:07)
[2018-08-28] MEDS: LevETIRAcetam 250 MG TABLET PO SCH ×2 (08:40→17:07)
[2018-08-28 11:43] LABS: GLUCOMETER DEV NAME(LOC) 3EX.; GLUCOSE,POINT OF CARE 129 MG/DL (70-110)
[2018-08-28] MEDS: CHLORHEXIDINE GLUCONATE 4% 118 ML TOPICAL LIQUID TP SCH (12:38)
[2018-08-28] MEDS: SILVER 45 ML GEL TP SCH (12:39)
[2018-08-28 16:28] LABS: GLUCOMETER DEV NAME(LOC) 3EX.; GLUCOSE,POINT OF CARE 102 MG/DL (70-110)
[2018-08-28 16:52] VITALS: BP 115/65
[2018-08-28 21:18] LABS: GLUCOMETER DEV NAME(LOC) 3EX.; GLUCOSE,POINT OF CARE 96 MG/DL (70-110)
[2018-08-29 06:34] LABS: GLUCOMETER DEV NAME(LOC) 3EX.; GLUCOSE,POINT OF CARE 118 MG/DL (70-110)
[2018-08-29] MEDS: MetFORMIN HCL 500 MG TABLET PO SCH ×2 (06:58→17:32)
[2018-08-29] MEDS: LEVOTHYROXINE SODIUM 50 MCG TABLET PO SCH (06:58)
[2018-08-29] MEDS: FERROUS SULFATE 325 MG EC TABLET PO SCH ×2 (06:58→16:39)
[2018-08-29] MEDS: DIVALPROEX SODIUM 500 MG DR TABLET PO SCH ×2 (08:45→16:38)
[2018-08-29] MEDS: LORATADINE 10 MG TABLET PO SCH (08:45)
[2018-08-29] MEDS: ASPIRIN 81 MG CHEWABLE TABLET PO SCH (08:45)
[2018-08-29] MEDS: SIMVASTATIN 20 MG TABLET PO SCH (08:46)
[2018-08-29] MEDS: OXYBUTYNIN CHLORIDE 5 MG ER TABLET PO SCH (08:46)
[2018-08-29] MEDS: BENAZEPRIL HCL 5 MG TABLET PO SCH (08:46)
[2018-08-29] MEDS: LevETIRAcetam 250 MG TABLET PO SCH ×2 (08:46→16:38)
[2018-08-29] MEDS: ASCORBIC ACID 500 MG TABLET PO SCH (08:46)
[2018-08-29] MEDS: TOPIRAMATE 100 MG TABLET PO SCH ×3 (08:46→16:38)
[2018-08-29] MEDS: QUEtiapine FUMARATE 200 MG TABLET PO SCH ×2 (08:47→21:02)
[2018-08-29] MEDS: FLUoxetine HCL 20 MG CAPSULE PO SCH (08:47)
[2018-08-29] MEDS: MULTIVITAMINS WITH MINERALS, THERAPEUTIC TABLET PO SCH (08:47)
[2018-08-29 10:32] VITALS: BP 99/69
[2018-08-29] MEDS: CHLORHEXIDINE GLUCONATE 4% 118 ML TOPICAL LIQUID TP SCH (13:22)
[2018-08-29] MEDS: SILVER 45 ML GEL TP SCH (13:23)
[2018-08-29] MEDS: INSULIN LISPRO 100 UNITS/ML SQ PRN ×2 (17:03→21:03)
[2018-08-29 17:14] LABS: GLUCOMETER DEV NAME(LOC) 3EX.; GLUCOSE,POINT OF CARE 141 MG/DL (70-110)
[2018-08-29 18:59] VITALS: BP 109/71
[2018-08-29 21:09] LABS: GLUCOMETER DEV NAME(LOC) 3E.I; GLUCOSE,POINT OF CARE 182 MG/DL (70-110)
[2018-08-30 05:30] LABS: GLUCOMETER DEV NAME(LOC) 3E.I; GLUCOSE,POINT OF CARE 102 MG/DL (70-110)
[2018-08-30] MEDS: LEVOTHYROXINE SODIUM 50 MCG TABLET PO SCH (06:27)
[2018-08-30] MEDS: INSULIN LISPRO 100 UNITS/ML SQ PRN ×2 (06:27→13:05)
[2018-08-30 06:45] LABS: BAND NEUTROPHILS % (MANUAL) 0 % (0-5)
[2018-08-30] MEDS: FERROUS SULFATE 325 MG EC TABLET PO SCH ×2 (06:48→18:00)
[2018-08-30] MEDS: MetFORMIN HCL 500 MG TABLET PO SCH ×2 (06:48→18:00)
[2018-08-30 06:52] LABS: HEMATOCRIT 40.1 % (36-46); HEMOGLOBIN 13.7 g/dL (12.0-16.0); MEAN CORPUSCULAR HEMOGLOBIN 33.8 pg (26.0-34.0); MEAN CORPUSCULAR HGB CONC 34.1 G/dL (31.0-37.0); MEAN CORPUSCULAR VOLUME 99 fL (80-100); PLATELET COUNT (AUTO) 188 K/uL (150-450); RED BLOOD CELL COUNT(AUTO) 4.04 MIL/uL (4.00-5.20); RED CELL DISTRIBUTION WIDTH 13.4 % (11.5-14.5)
[2018-08-30 07:02] LABS: HEMOGLOBIN A1C 6.4 % (4.5-6.2)
[2018-08-30 07:14] LABS: ANION GAP 5 mmol/L (8-16); CALCIUM, TOTAL 9.4 mg/dL (8.8-10.5); CARBON DIOXIDE 30 mmol/L (22-29); CHLORIDE 101 mmol/L (98-107); CHOL/HDL RATIO 2.6 (3.9-5.7); CHOLESTEROL 162 mg/dL (131-200); CREATININE 0.77 mg/dL (0.60-1.30); GLOMERULAR FILTR. RATE CALC > 60 mL/min (>60); GLUCOSE,RANDOM 117 mg/dL (70-110); HDL CHOLESTEROL 62 mg/dL (40-60); LDL CHOL (CALC.) 74 mg/dL (0-130); PHOSPHORUS 4.3 mg/dL (2.5-4.9); POTASSIUM 4.4 mmol/L (3.5-5.1); SODIUM SERUM 136 mmol/L (136-145); THYROID STIMULATING HORMONE 5.93 uIU/mL (0.36-3.74); TRIGLYCERIDES 129 mg/dL (15-150); UREA NITROGEN, BLOOD 21 mg/dL (7-18)
[2018-08-30 09:56] LABS: LYMPHOCYTES % (MANUAL) 61 % (22-44); MONOCYTES % (MANUAL) 4 % (2-9); SEGMENTED NEUTROPHILS % 35 % (40-70)
[2018-08-30 10:54] VITALS: BP 140/92
[2018-08-30] MEDS: SILVER 45 ML GEL TP SCH (11:02)
[2018-08-30] MEDS: DIVALPROEX SODIUM 500 MG DR TABLET PO SCH ×2 (11:02→18:00)
[2018-08-30] MEDS: CHLORHEXIDINE GLUCONATE 4% 118 ML TOPICAL LIQUID TP SCH (11:02)
[2018-08-30] MEDS: SIMVASTATIN 20 MG TABLET PO SCH (11:02)
[2018-08-30] MEDS: HALOPERIDOL 5 MG TABLET PO PRN (11:02)
[2018-08-30] MEDS: FLUoxetine HCL 20 MG CAPSULE PO SCH (11:03)
[2018-08-30] MEDS: QUEtiapine FUMARATE 200 MG TABLET PO SCH ×2 (11:03→20:36)
[2018-08-30] MEDS: ASPIRIN 81 MG CHEWABLE TABLET PO SCH (11:03)
[2018-08-30] MEDS: TOPIRAMATE 100 MG TABLET PO SCH ×3 (11:03→17:59)
[2018-08-30] MEDS: LevETIRAcetam 250 MG TABLET PO SCH ×2 (11:03→18:00)
[2018-08-30] MEDS: MULTIVITAMINS WITH MINERALS, THERAPEUTIC TABLET PO SCH (11:03)
[2018-08-30] MEDS: LORATADINE 10 MG TABLET PO SCH (11:03)
[2018-08-30] MEDS: OXYBUTYNIN CHLORIDE 5 MG ER TABLET PO SCH (11:04)
[2018-08-30] MEDS: ASCORBIC ACID 500 MG TABLET PO SCH (11:04)
[2018-08-30] MEDS: BENAZEPRIL HCL 5 MG TABLET PO SCH (11:04)
[2018-08-30 11:34] LABS: GLUCOMETER DEV NAME(LOC) 3E.I; GLUCOSE,POINT OF CARE 100 MG/DL (70-110)
[2018-08-30 17:40] LABS: GLUCOMETER DEV NAME(LOC) 3E.I; GLUCOSE,POINT OF CARE 105 MG/DL (70-110)
[2018-08-30 19:02] VITALS: BP 130/87
[2018-08-30 21:15] LABS: GLUCOMETER DEV NAME(LOC) 3E.I; GLUCOSE,POINT OF CARE 71 MG/DL (70-110)
[2018-08-31 06:29] LABS: GLUCOMETER DEV NAME(LOC) 3E.I; GLUCOSE,POINT OF CARE 79 MG/DL (70-110)
[2018-08-31] MEDS: FERROUS SULFATE 325 MG EC TABLET PO SCH ×2 (07:05→16:47)
[2018-08-31] MEDS: MetFORMIN HCL 500 MG TABLET PO SCH ×2 (07:05→16:47)
[2018-08-31] MEDS: INSULIN LISPRO 100 UNITS/ML SQ PRN ×3 (07:06→21:19)
[2018-08-31] MEDS: LEVOTHYROXINE SODIUM 50 MCG TABLET PO SCH (07:06)
[2018-08-31] MEDS: LORATADINE 10 MG TABLET PO SCH (08:09)
[2018-08-31] MEDS: LevETIRAcetam 250 MG TABLET PO SCH ×2 (08:09→16:47)
[2018-08-31] MEDS: SIMVASTATIN 20 MG TABLET PO SCH (08:09)
[2018-08-31] MEDS: BENAZEPRIL HCL 5 MG TABLET PO SCH (08:09)
[2018-08-31] MEDS: HALOPERIDOL 5 MG TABLET PO PRN (08:09)
[2018-08-31] MEDS: ASPIRIN 81 MG CHEWABLE TABLET PO SCH (08:09)
[2018-08-31] MEDS: TOPIRAMATE 100 MG TABLET PO SCH ×3 (08:09→16:46)
[2018-08-31] MEDS: DIVALPROEX SODIUM 500 MG DR TABLET PO SCH ×2 (08:10→16:47)
[2018-08-31] MEDS: ASCORBIC ACID 500 MG TABLET PO SCH (08:10)
[2018-08-31] MEDS: QUEtiapine FUMARATE 200 MG TABLET PO SCH ×2 (08:10→20:33)
[2018-08-31] MEDS: OXYBUTYNIN CHLORIDE 5 MG ER TABLET PO SCH (08:10)
[2018-08-31] MEDS: MULTIVITAMINS WITH MINERALS, THERAPEUTIC TABLET PO SCH (08:10)
[2018-08-31] MEDS: FLUoxetine HCL 20 MG CAPSULE PO SCH (08:11)
[2018-08-31] MEDS: CHLORHEXIDINE GLUCONATE 4% 118 ML TOPICAL LIQUID TP SCH (09:00)
[2018-08-31] MEDS: SILVER 45 ML GEL TP SCH (09:00)
[2018-08-31 09:40] VITALS: BP 95/79
[2018-08-31 11:28] LABS: GLUCOMETER DEV NAME(LOC) 3E.I; GLUCOSE,POINT OF CARE 94 MG/DL (70-110)
[2018-08-31 16:44] LABS: GLUCOMETER DEV NAME(LOC) 3E.I; GLUCOSE,POINT OF CARE 155 MG/DL (70-110)
[2018-08-31 18:00] VITALS: BP 116/73
[2018-08-31 21:24] LABS: GLUCOMETER DEV NAME(LOC) 3E.I; GLUCOSE,POINT OF CARE 150 MG/DL (70-110)
[2018-09-01 05:34] LABS: GLUCOMETER DEV NAME(LOC) 3E.I; GLUCOSE,POINT OF CARE 88 MG/DL (70-110)
[2018-09-01] MEDS: FERROUS SULFATE 325 MG EC TABLET PO SCH ×2 (06:56→18:30)
[2018-09-01] MEDS: LEVOTHYROXINE SODIUM 50 MCG TABLET PO SCH (06:56)
[2018-09-01] MEDS: MetFORMIN HCL 500 MG TABLET PO SCH ×2 (06:57→18:30)
[2018-09-01 08:00] VITALS: BP 118/55
[2018-09-01] MEDS: ASPIRIN 81 MG CHEWABLE TABLET PO SCH (08:02)
[2018-09-01] MEDS: SIMVASTATIN 20 MG TABLET PO SCH (08:02)
[2018-09-01] MEDS: BENAZEPRIL HCL 5 MG TABLET PO SCH (08:03)
[2018-09-01] MEDS: DIVALPROEX SODIUM 500 MG DR TABLET PO SCH ×2 (08:03→18:00)
[2018-09-01] MEDS: QUEtiapine FUMARATE 200 MG TABLET PO SCH ×2 (08:03→21:30)
[2018-09-01] MEDS: LORATADINE 10 MG TABLET PO SCH (08:03)
[2018-09-01] MEDS: MULTIVITAMINS WITH MINERALS, THERAPEUTIC TABLET PO SCH (08:03)
[2018-09-01] MEDS: FLUoxetine HCL 20 MG CAPSULE PO SCH (08:03)
[2018-09-01] MEDS: ASCORBIC ACID 500 MG TABLET PO SCH (08:04)
[2018-09-01] MEDS: OXYBUTYNIN CHLORIDE 5 MG ER TABLET PO SCH (08:04)
[2018-09-01] MEDS: LevETIRAcetam 250 MG TABLET PO SCH ×2 (08:04→17:59)
[2018-09-01] MEDS: TOPIRAMATE 100 MG TABLET PO SCH ×3 (08:04→17:59)
[2018-09-01] MEDS: HALOPERIDOL 5 MG TABLET PO PRN (08:07)
[2018-09-01] MEDS: CHLORHEXIDINE GLUCONATE 4% 118 ML TOPICAL LIQUID TP SCH (11:31)
[2018-09-01] MEDS: SILVER 45 ML GEL TP SCH (11:31)
[2018-09-01 11:34] LABS: GLUCOMETER DEV NAME(LOC) 3E.C; GLUCOSE,POINT OF CARE 122 MG/DL (70-110)
[2018-09-01 17:00] VITALS: BP 112/72
[2018-09-01 22:44] LABS: GLUCOMETER DEV NAME(LOC) 3E.C; GLUCOSE,POINT OF CARE 132 MG/DL (70-110)
[2018-09-02 05:29] LABS: GLUCOMETER DEV NAME(LOC) 3E.I; GLUCOSE,POINT OF CARE 92 MG/DL (70-110)
[2018-09-02] MEDS: MetFORMIN HCL 500 MG TABLET PO SCH ×2 (06:40→17:15)
[2018-09-02] MEDS: LEVOTHYROXINE SODIUM 50 MCG TABLET PO SCH (06:40)
[2018-09-02] MEDS: FERROUS SULFATE 325 MG EC TABLET PO SCH ×2 (06:40→17:15)
[2018-09-02 08:06] VITALS: BP 108/75
[2018-09-02] MEDS: HALOPERIDOL 5 MG TABLET PO PRN ×2 (09:28→14:30)
[2018-09-02] MEDS: MULTIVITAMINS WITH MINERALS, THERAPEUTIC TABLET PO SCH (09:28)
[2018-09-02] MEDS: ASCORBIC ACID 500 MG TABLET PO SCH (09:29)
[2018-09-02] MEDS: DIVALPROEX SODIUM 500 MG DR TABLET PO SCH ×2 (09:29→17:15)
[2018-09-02] MEDS: BENAZEPRIL HCL 5 MG TABLET PO SCH (09:29)
[2018-09-02] MEDS: FLUoxetine HCL 20 MG CAPSULE PO SCH (09:29)
[2018-09-02] MEDS: OXYBUTYNIN CHLORIDE 5 MG ER TABLET PO SCH (09:29)
[2018-09-02] MEDS: LevETIRAcetam 250 MG TABLET PO SCH ×2 (09:29→17:15)
[2018-09-02] MEDS: SIMVASTATIN 20 MG TABLET PO SCH (09:29)
[2018-09-02] MEDS: QUEtiapine FUMARATE 200 MG TABLET PO SCH ×2 (09:29→21:05)
[2018-09-02] MEDS: LORATADINE 10 MG TABLET PO SCH (09:29)
[2018-09-02] MEDS: CHLORHEXIDINE GLUCONATE 4% 118 ML TOPICAL LIQUID TP SCH (09:30)
[2018-09-02] MEDS: ASPIRIN 81 MG CHEWABLE TABLET PO SCH (09:30)
[2018-09-02] MEDS: TOPIRAMATE 100 MG TABLET PO SCH ×3 (09:30→17:15)
[2018-09-02] MEDS: SILVER 45 ML GEL TP SCH (09:30)
[2018-09-02 11:18] LABS: GLUCOMETER DEV NAME(LOC) 3E.I; GLUCOSE,POINT OF CARE 102 MG/DL (70-110)
[2018-09-02] MEDS: INSULIN LISPRO 100 UNITS/ML SQ PRN (11:30)
[2018-09-02 16:15] VITALS: BP 117/79
[2018-09-02 20:44] LABS: GLUCOMETER DEV NAME(LOC) 3E.I; GLUCOSE,POINT OF CARE 118 MG/DL (70-110)
[2018-09-02 21:38] LABS: GLUCOMETER DEV NAME(LOC) 3E.I; GLUCOSE,POINT OF CARE 99 MG/DL (70-110)
[2018-09-03 06:38] LABS: GLUCOMETER DEV NAME(LOC) 3E.I; GLUCOSE,POINT OF CARE 84 MG/DL (70-110)
[2018-09-03] MEDS: INSULIN LISPRO 100 UNITS/ML SQ PRN (06:38)
[2018-09-03] MEDS: FERROUS SULFATE 325 MG EC TABLET PO SCH ×2 (06:59→17:30)
[2018-09-03] MEDS: LEVOTHYROXINE SODIUM 50 MCG TABLET PO SCH (06:59)
[2018-09-03] MEDS: MetFORMIN HCL 500 MG TABLET PO SCH ×2 (06:59→17:30)
[2018-09-03] MEDS: ASPIRIN 81 MG CHEWABLE TABLET PO SCH (10:40)
[2018-09-03] MEDS: DIVALPROEX SODIUM 500 MG DR TABLET PO SCH ×2 (10:41→17:00)
[2018-09-03] MEDS: TOPIRAMATE 100 MG TABLET PO SCH ×3 (10:41→17:00)
[2018-09-03] MEDS: LevETIRAcetam 250 MG TABLET PO SCH ×2 (10:41→17:00)
[2018-09-03] MEDS: FLUoxetine HCL 20 MG CAPSULE PO SCH (10:41)
[2018-09-03] MEDS: BENAZEPRIL HCL 5 MG TABLET PO SCH (10:41)
[2018-09-03] MEDS: SIMVASTATIN 20 MG TABLET PO SCH (10:42)
[2018-09-03] MEDS: QUEtiapine FUMARATE 200 MG TABLET PO SCH ×2 (10:42→20:12)
[2018-09-03] MEDS: ASCORBIC ACID 500 MG TABLET PO SCH (10:42)
[2018-09-03] MEDS: OXYBUTYNIN CHLORIDE 5 MG ER TABLET PO SCH (10:42)
[2018-09-03] MEDS: MULTIVITAMINS WITH MINERALS, THERAPEUTIC TABLET PO SCH (10:42)
[2018-09-03] MEDS: LORATADINE 10 MG TABLET PO SCH (10:43)
[2018-09-03] MEDS: HALOPERIDOL 5 MG TABLET PO PRN (10:45)
[2018-09-03] MEDS: CHLORHEXIDINE GLUCONATE 4% 118 ML TOPICAL LIQUID TP SCH (11:01)
[2018-09-03] MEDS: SILVER 45 ML GEL TP SCH (11:01)
[2018-09-03 11:29] LABS: GLUCOMETER DEV NAME(LOC) 3E.I; GLUCOSE,POINT OF CARE 99 MG/DL (70-110)
[2018-09-03 20:18] LABS: GLUCOMETER DEV NAME(LOC) 3E.I; GLUCOSE,POINT OF CARE 70 MG/DL (70-110)
[2018-09-03 20:24] VITALS: BP 115/78
[2018-09-04 05:34] LABS: GLUCOMETER DEV NAME(LOC) 3E.I; GLUCOSE,POINT OF CARE 105 MG/DL (70-110)
[2018-09-04] MEDS: MetFORMIN HCL 500 MG TABLET PO SCH ×2 (06:43→17:44)
[2018-09-04] MEDS: FERROUS SULFATE 325 MG EC TABLET PO SCH ×2 (06:43→17:43)
[2018-09-04] MEDS: LEVOTHYROXINE SODIUM 50 MCG TABLET PO SCH (06:43)
[2018-09-04] MEDS: INSULIN LISPRO 100 UNITS/ML SQ PRN (06:43)
[2018-09-04] MEDS: CHLORHEXIDINE GLUCONATE 4% 118 ML TOPICAL LIQUID TP SCH (09:00)
[2018-09-04] MEDS: SILVER 45 ML GEL TP SCH (09:00)
[2018-09-04] MEDS: LevETIRAcetam 250 MG TABLET PO SCH ×2 (11:16→17:43)
[2018-09-04] MEDS: TOPIRAMATE 100 MG TABLET PO SCH ×3 (11:16→17:43)
[2018-09-04] MEDS: QUEtiapine FUMARATE 200 MG TABLET PO SCH ×2 (11:16→20:15)
[2018-09-04] MEDS: ASCORBIC ACID 500 MG TABLET PO SCH (11:16)
[2018-09-04] MEDS: DIVALPROEX SODIUM 500 MG DR TABLET PO SCH ×2 (11:17→17:43)
[2018-09-04] MEDS: ASPIRIN 81 MG CHEWABLE TABLET PO SCH (11:17)
[2018-09-04] MEDS: FLUoxetine HCL 20 MG CAPSULE PO SCH (11:17)
[2018-09-04] MEDS: LORATADINE 10 MG TABLET PO SCH (11:17)
[2018-09-04 11:18] LABS: GLUCOMETER DEV NAME(LOC) 3E.I; GLUCOSE,POINT OF CARE 76 MG/DL (70-110)
[2018-09-04] MEDS: SIMVASTATIN 20 MG TABLET PO SCH (11:18)
[2018-09-04] MEDS: MULTIVITAMINS WITH MINERALS, THERAPEUTIC TABLET PO SCH (11:18)
[2018-09-04] MEDS: OXYBUTYNIN CHLORIDE 5 MG ER TABLET PO SCH (11:19)
[2018-09-04] MEDS: BENAZEPRIL HCL 5 MG TABLET PO SCH (11:19)
[2018-09-04] MEDS: OMEPRAZOLE 20 MG CAPSULE PO PRN (15:04)
[2018-09-04 16:07] VITALS: BP 115/78
[2018-09-04 17:19] LABS: GLUCOMETER DEV NAME(LOC) 3E.I; GLUCOSE,POINT OF CARE 107 MG/DL (70-110)
[2018-09-04 21:44] LABS: GLUCOMETER DEV NAME(LOC) 3E.I; GLUCOSE,POINT OF CARE 81 MG/DL (70-110)
[2018-09-05 05:39] LABS: GLUCOMETER DEV NAME(LOC) 3E.I; GLUCOSE,POINT OF CARE 106 MG/DL (70-110)
[2018-09-05] MEDS: LEVOTHYROXINE SODIUM 50 MCG TABLET PO SCH (06:36)
[2018-09-05] MEDS: INSULIN LISPRO 100 UNITS/ML SQ PRN (06:37)
[2018-09-05] MEDS: FERROUS SULFATE 325 MG EC TABLET PO SCH ×2 (06:51→17:49)
[2018-09-05] MEDS: MetFORMIN HCL 500 MG TABLET PO SCH ×2 (06:51→17:49)
[2018-09-05] MEDS: DIVALPROEX SODIUM 500 MG DR TABLET PO SCH ×2 (08:38→17:49)
[2018-09-05] MEDS: MULTIVITAMINS WITH MINERALS, THERAPEUTIC TABLET PO SCH (08:39)
[2018-09-05] MEDS: ASPIRIN 81 MG CHEWABLE TABLET PO SCH (08:39)
[2018-09-05] MEDS: FLUoxetine HCL 20 MG CAPSULE PO SCH (08:39)
[2018-09-05] MEDS: LORATADINE 10 MG TABLET PO SCH (08:39)
[2018-09-05] MEDS: TOPIRAMATE 100 MG TABLET PO SCH ×3 (08:39→17:49)
[2018-09-05] MEDS: QUEtiapine FUMARATE 200 MG TABLET PO SCH ×2 (08:39→20:21)
[2018-09-05] MEDS: SIMVASTATIN 20 MG TABLET PO SCH (08:39)
[2018-09-05] MEDS: LevETIRAcetam 250 MG TABLET PO SCH ×2 (08:40→17:49)
[2018-09-05] MEDS: BENAZEPRIL HCL 5 MG TABLET PO SCH (08:40)
[2018-09-05] MEDS: OXYBUTYNIN CHLORIDE 5 MG ER TABLET PO SCH (08:40)
[2018-09-05] MEDS: ASCORBIC ACID 500 MG TABLET PO SCH (08:40)
[2018-09-05] MEDS: SILVER 45 ML GEL TP SCH (08:40)
[2018-09-05] MEDS: CHLORHEXIDINE GLUCONATE 4% 118 ML TOPICAL LIQUID TP SCH (08:40)
[2018-09-05] MEDS: HALOPERIDOL 5 MG TABLET PO PRN (08:41)
[2018-09-05] MEDS: DOCUSATE SODIUM 100 MG CAPSULE PO PRN (13:47)
[2018-09-05 14:52] VITALS: BP 109/71
[2018-09-05 16:17] VITALS: BP 111/73
[2018-09-05 16:33] LABS: GLUCOMETER DEV NAME(LOC) 3E.C; GLUCOSE,POINT OF CARE 94 MG/DL (70-110)
[2018-09-05 20:59] LABS: GLUCOMETER DEV NAME(LOC) 3E.I; GLUCOSE,POINT OF CARE 96 MG/DL (70-110)
[2018-09-06 05:24] LABS: GLUCOMETER DEV NAME(LOC) 3E.I; GLUCOSE,POINT OF CARE 92 MG/DL (70-110)
[2018-09-06] MEDS: MetFORMIN HCL 500 MG TABLET PO SCH ×2 (07:01→16:27)
[2018-09-06] MEDS: FERROUS SULFATE 325 MG EC TABLET PO SCH ×2 (07:01→16:26)
[2018-09-06] MEDS: LEVOTHYROXINE SODIUM 50 MCG TABLET PO SCH (07:01)
[2018-09-06] MEDS: INSULIN LISPRO 100 UNITS/ML SQ PRN (07:11)
[2018-09-06] MEDS: DIVALPROEX SODIUM 500 MG DR TABLET PO SCH ×2 (08:37→16:26)
[2018-09-06] MEDS: HALOPERIDOL 5 MG TABLET PO PRN (08:37)
[2018-09-06] MEDS: QUEtiapine FUMARATE 200 MG TABLET PO SCH ×2 (08:37→20:07)
[2018-09-06] MEDS: LORATADINE 10 MG TABLET PO SCH (08:37)
[2018-09-06] MEDS: MULTIVITAMINS WITH MINERALS, THERAPEUTIC TABLET PO SCH (08:37)
[2018-09-06] MEDS: SIMVASTATIN 20 MG TABLET PO SCH (08:37)
[2018-09-06] MEDS: OMEPRAZOLE 20 MG CAPSULE PO PRN (08:37)
[2018-09-06] MEDS: ASPIRIN 81 MG CHEWABLE TABLET PO SCH (08:37)
[2018-09-06] MEDS: FLUoxetine HCL 20 MG CAPSULE PO SCH (08:37)
[2018-09-06] MEDS: BENAZEPRIL HCL 5 MG TABLET PO SCH (08:38)
[2018-09-06] MEDS: OXYBUTYNIN CHLORIDE 5 MG ER TABLET PO SCH (08:38)
[2018-09-06] MEDS: ASCORBIC ACID 500 MG TABLET PO SCH (08:38)
[2018-09-06] MEDS: LevETIRAcetam 250 MG TABLET PO SCH ×2 (08:38→16:27)
[2018-09-06] MEDS: TOPIRAMATE 100 MG TABLET PO SCH ×3 (08:38→16:26)
[2018-09-06] MEDS: CHLORHEXIDINE GLUCONATE 4% 118 ML TOPICAL LIQUID TP SCH (08:39)
[2018-09-06] MEDS: SILVER 45 ML GEL TP SCH (08:39)
[2018-09-06 11:44] LABS: GLUCOMETER DEV NAME(LOC) 3E.I; GLUCOSE,POINT OF CARE 94 MG/DL (70-110)
[2018-09-06 13:33] VITALS: BP 124/92
[2018-09-06 16:59] VITALS: BP 105/65
[2018-09-06 17:03] LABS: GLUCOMETER DEV NAME(LOC) 3E.I; GLUCOSE,POINT OF CARE 105 MG/DL (70-110)
[2018-09-06 21:14] LABS: GLUCOMETER DEV NAME(LOC) 3E.I; GLUCOSE,POINT OF CARE 117 MG/DL (70-110)
[2018-09-07 05:39] LABS: GLUCOMETER DEV NAME(LOC) 3E.I; GLUCOSE,POINT OF CARE 78 MG/DL (70-110)
[2018-09-07] MEDS: FERROUS SULFATE 325 MG EC TABLET PO SCH ×2 (06:34→17:42)
[2018-09-07] MEDS: MetFORMIN HCL 500 MG TABLET PO SCH ×2 (06:34→17:42)
[2018-09-07] MEDS: LEVOTHYROXINE SODIUM 50 MCG TABLET PO SCH (06:34)
[2018-09-07] MEDS: INSULIN LISPRO 100 UNITS/ML SQ PRN (06:35)
[2018-09-07] MEDS: ASPIRIN 81 MG CHEWABLE TABLET PO SCH (07:50)
[2018-09-07] MEDS: QUEtiapine FUMARATE 200 MG TABLET PO SCH ×2 (07:50→20:21)
[2018-09-07] MEDS: SIMVASTATIN 20 MG TABLET PO SCH (07:50)
[2018-09-07] MEDS: HALOPERIDOL 5 MG TABLET PO PRN (07:50)
[2018-09-07] MEDS: DIVALPROEX SODIUM 500 MG DR TABLET PO SCH ×2 (07:50→17:42)
[2018-09-07] MEDS: LORATADINE 10 MG TABLET PO SCH (07:50)
[2018-09-07] MEDS: FLUoxetine HCL 20 MG CAPSULE PO SCH (07:50)
[2018-09-07] MEDS: BENAZEPRIL HCL 5 MG TABLET PO SCH (07:51)
[2018-09-07] MEDS: SILVER 45 ML GEL TP SCH (07:51)
[2018-09-07] MEDS: CHLORHEXIDINE GLUCONATE 4% 118 ML TOPICAL LIQUID TP SCH (07:51)
[2018-09-07] MEDS: LevETIRAcetam 250 MG TABLET PO SCH ×2 (07:51→17:42)
[2018-09-07] MEDS: TOPIRAMATE 100 MG TABLET PO SCH ×3 (07:51→17:43)
[2018-09-07] MEDS: ASCORBIC ACID 500 MG TABLET PO SCH (07:51)
[2018-09-07] MEDS: OXYBUTYNIN CHLORIDE 5 MG ER TABLET PO SCH (07:51)
[2018-09-07] MEDS: MULTIVITAMINS WITH MINERALS, THERAPEUTIC TABLET PO SCH (07:52)
[2018-09-07 11:43] LABS: GLUCOMETER DEV NAME(LOC) 3E.I; GLUCOSE,POINT OF CARE 93 MG/DL (70-110)
[2018-09-07 16:44] LABS: GLUCOMETER DEV NAME(LOC) 3E.I; GLUCOSE,POINT OF CARE 87 MG/DL (70-110)
[2018-09-07 17:15] VITALS: BP 101/59
[2018-09-07 20:53] LABS: GLUCOMETER DEV NAME(LOC) 3E.I; GLUCOSE,POINT OF CARE 121 MG/DL (70-110)
[2018-09-08 05:54] LABS: GLUCOMETER DEV NAME(LOC) 3E.I; GLUCOSE,POINT OF CARE 150 MG/DL (70-110)
[2018-09-08] MEDS: MetFORMIN HCL 500 MG TABLET PO SCH ×2 (07:09→17:35)
[2018-09-08] MEDS: FERROUS SULFATE 325 MG EC TABLET PO SCH ×2 (07:09→17:34)
[2018-09-08] MEDS: LEVOTHYROXINE SODIUM 50 MCG TABLET PO SCH (07:09)
[2018-09-08] MEDS: INSULIN LISPRO 100 UNITS/ML SQ PRN (07:12)
[2018-09-08] MEDS: LevETIRAcetam 250 MG TABLET PO SCH ×2 (10:40→17:34)
[2018-09-08] MEDS: LORATADINE 10 MG TABLET PO SCH (10:40)
[2018-09-08] MEDS: TOPIRAMATE 100 MG TABLET PO SCH ×3 (10:40→17:34)
[2018-09-08] MEDS: DIVALPROEX SODIUM 500 MG DR TABLET PO SCH ×2 (10:40→17:34)
[2018-09-08] MEDS: ASCORBIC ACID 500 MG TABLET PO SCH (10:40)
[2018-09-08] MEDS: OXYBUTYNIN CHLORIDE 5 MG ER TABLET PO SCH (10:40)
[2018-09-08] MEDS: HALOPERIDOL 5 MG TABLET PO PRN (10:40)
[2018-09-08] MEDS: SILVER 45 ML GEL TP SCH (10:40)
[2018-09-08] MEDS: CHLORHEXIDINE GLUCONATE 4% 118 ML TOPICAL LIQUID TP SCH (10:40)
[2018-09-08] MEDS: BENAZEPRIL HCL 5 MG TABLET PO SCH (10:40)
[2018-09-08] MEDS: FLUoxetine HCL 20 MG CAPSULE PO SCH (10:41)
[2018-09-08] MEDS: MULTIVITAMINS WITH MINERALS, THERAPEUTIC TABLET PO SCH (10:41)
[2018-09-08] MEDS: ASPIRIN 81 MG CHEWABLE TABLET PO SCH (10:41)
[2018-09-08] MEDS: QUEtiapine FUMARATE 200 MG TABLET PO SCH ×2 (10:42→20:50)
[2018-09-08] MEDS: SIMVASTATIN 20 MG TABLET PO SCH (10:42)
[2018-09-08 16:44] LABS: GLUCOMETER DEV NAME(LOC) 3E.I; GLUCOSE,POINT OF CARE 72 MG/DL (70-110)
[2018-09-08 21:24] LABS: GLUCOMETER DEV NAME(LOC) 3E.I; GLUCOSE,POINT OF CARE 94 MG/DL (70-110)
[2018-09-09 05:54] LABS: GLUCOMETER DEV NAME(LOC) 3E.I; GLUCOSE,POINT OF CARE 75 MG/DL (70-110)
[2018-09-09] MEDS: FERROUS SULFATE 325 MG EC TABLET PO SCH ×2 (06:49→17:30)
[2018-09-09] MEDS: LEVOTHYROXINE SODIUM 50 MCG TABLET PO SCH (06:49)
[2018-09-09] MEDS: MetFORMIN HCL 500 MG TABLET PO SCH ×2 (06:49→17:30)
[2018-09-09] MEDS: HALOPERIDOL 5 MG TABLET PO PRN (08:06)
[2018-09-09] MEDS: ASPIRIN 81 MG CHEWABLE TABLET PO SCH (08:06)
[2018-09-09] MEDS: MULTIVITAMINS WITH MINERALS, THERAPEUTIC TABLET PO SCH (08:06)
[2018-09-09] MEDS: SIMVASTATIN 20 MG TABLET PO SCH (08:06)
[2018-09-09] MEDS: LORATADINE 10 MG TABLET PO SCH (08:06)
[2018-09-09] MEDS: LevETIRAcetam 250 MG TABLET PO SCH ×2 (08:06→17:30)
[2018-09-09] MEDS: TOPIRAMATE 100 MG TABLET PO SCH ×3 (08:06→17:30)
[2018-09-09] MEDS: QUEtiapine FUMARATE 200 MG TABLET PO SCH ×2 (08:06→20:41)
[2018-09-09] MEDS: FLUoxetine HCL 20 MG CAPSULE PO SCH (08:06)
[2018-09-09] MEDS: DIVALPROEX SODIUM 500 MG DR TABLET PO SCH ×2 (08:06→17:30)
[2018-09-09] MEDS: CHLORHEXIDINE GLUCONATE 4% 118 ML TOPICAL LIQUID TP SCH (08:07)
[2018-09-09] MEDS: ASCORBIC ACID 500 MG TABLET PO SCH (08:07)
[2018-09-09] MEDS: BENAZEPRIL HCL 5 MG TABLET PO SCH (08:07)
[2018-09-09] MEDS: OXYBUTYNIN CHLORIDE 5 MG ER TABLET PO SCH (08:07)
[2018-09-09] MEDS: SILVER 45 ML GEL TP SCH (08:08)
[2018-09-09 12:03] LABS: GLUCOMETER DEV NAME(LOC) 3E.I; GLUCOSE,POINT OF CARE 89 MG/DL (70-110)
[2018-09-09 14:18] VITALS: BP 105/62
[2018-09-09 16:04] VITALS: BP 113/75
[2018-09-09] MEDS: INSULIN LISPRO 100 UNITS/ML SQ PRN (17:46)
[2018-09-09 17:48] LABS: GLUCOMETER DEV NAME(LOC) 3E.I; GLUCOSE,POINT OF CARE 141 MG/DL (70-110)
[2018-09-09 21:18] LABS: GLUCOMETER DEV NAME(LOC) 3E.I; GLUCOSE,POINT OF CARE 102 MG/DL (70-110)
[2018-09-10 06:10] LABS: GLUCOMETER DEV NAME(LOC) 3E.I; GLUCOSE,POINT OF CARE 93 MG/DL (70-110)
[2018-09-10] MEDS: FERROUS SULFATE 325 MG EC TABLET PO SCH ×2 (06:59→17:09)
[2018-09-10] MEDS: LEVOTHYROXINE SODIUM 50 MCG TABLET PO SCH (06:59)
[2018-09-10] MEDS: MetFORMIN HCL 500 MG TABLET PO SCH ×2 (06:59→17:09)
[2018-09-10 08:42] VITALS: BP 99/58
[2018-09-10] MEDS: SIMVASTATIN 20 MG TABLET PO SCH (11:36)
[2018-09-10] MEDS: QUEtiapine FUMARATE 200 MG TABLET PO SCH ×2 (11:37→21:38)
[2018-09-10] MEDS: ASPIRIN 81 MG CHEWABLE TABLET PO SCH (11:37)
[2018-09-10] MEDS: DIVALPROEX SODIUM 500 MG DR TABLET PO SCH ×2 (11:37→17:09)
[2018-09-10] MEDS: LORATADINE 10 MG TABLET PO SCH (11:37)
[2018-09-10] MEDS: LevETIRAcetam 250 MG TABLET PO SCH ×2 (11:38→17:09)
[2018-09-10] MEDS: MULTIVITAMINS WITH MINERALS, THERAPEUTIC TABLET PO SCH (11:38)
[2018-09-10] MEDS: BENAZEPRIL HCL 5 MG TABLET PO SCH (11:38)
[2018-09-10] MEDS: TOPIRAMATE 100 MG TABLET PO SCH ×3 (11:39→17:09)
[2018-09-10] MEDS: CHLORHEXIDINE GLUCONATE 4% 118 ML TOPICAL LIQUID TP SCH (11:39)
[2018-09-10] MEDS: OXYBUTYNIN CHLORIDE 5 MG ER TABLET PO SCH (11:39)
[2018-09-10] MEDS: ASCORBIC ACID 500 MG TABLET PO SCH (11:40)
[2018-09-10] MEDS: SILVER 45 ML GEL TP SCH (11:40)
[2018-09-10] MEDS: FLUoxetine HCL 20 MG CAPSULE PO SCH (11:42)
[2018-09-10 12:19] LABS: GLUCOMETER DEV NAME(LOC) 3E.I; GLUCOSE,POINT OF CARE 112 MG/DL (70-110)
[2018-09-10] MEDS: INSULIN LISPRO 100 UNITS/ML SQ PRN ×2 (14:39→17:40)
[2018-09-10 16:49] LABS: GLUCOMETER DEV NAME(LOC) 3E.I; GLUCOSE,POINT OF CARE 146 MG/DL (70-110)
[2018-09-10 20:09] VITALS: BP 110/69
[2018-09-10 21:45] LABS: GLUCOMETER DEV NAME(LOC) 3E.I; GLUCOSE,POINT OF CARE 98 MG/DL (70-110)
[2018-09-11 05:48] LABS: GLUCOMETER DEV NAME(LOC) 3E.I; GLUCOSE,POINT OF CARE 85 MG/DL (70-110)
[2018-09-11] MEDS: LEVOTHYROXINE SODIUM 50 MCG TABLET PO SCH (06:59)
[2018-09-11] MEDS: FERROUS SULFATE 325 MG EC TABLET PO SCH ×2 (06:59→17:28)
[2018-09-11] MEDS: MetFORMIN HCL 500 MG TABLET PO SCH ×2 (06:59→16:44)
[2018-09-11] MEDS: INSULIN LISPRO 100 UNITS/ML SQ PRN ×2 (07:14→11:30)
[2018-09-11] MEDS: FLUoxetine HCL 20 MG CAPSULE PO SCH (10:19)
[2018-09-11] MEDS: MULTIVITAMINS WITH MINERALS, THERAPEUTIC TABLET PO SCH (10:20)
[2018-09-11] MEDS: QUEtiapine FUMARATE 200 MG TABLET PO SCH ×2 (10:20→20:33)
[2018-09-11] MEDS: TOPIRAMATE 100 MG TABLET PO SCH ×3 (10:21→16:44)
[2018-09-11] MEDS: ASPIRIN 81 MG CHEWABLE TABLET PO SCH (10:21)
[2018-09-11] MEDS: LevETIRAcetam 250 MG TABLET PO SCH ×2 (10:21→16:44)
[2018-09-11] MEDS: SIMVASTATIN 20 MG TABLET PO SCH (10:21)
[2018-09-11] MEDS: DIVALPROEX SODIUM 500 MG DR TABLET PO SCH ×2 (10:21→16:44)
[2018-09-11] MEDS: OXYBUTYNIN CHLORIDE 5 MG ER TABLET PO SCH (10:21)
[2018-09-11] MEDS: SILVER 45 ML GEL TP SCH (10:22)
[2018-09-11] MEDS: LORATADINE 10 MG TABLET PO SCH (10:22)
[2018-09-11] MEDS: BENAZEPRIL HCL 5 MG TABLET PO SCH (10:22)
[2018-09-11] MEDS: CHLORHEXIDINE GLUCONATE 4% 118 ML TOPICAL LIQUID TP SCH (10:22)
[2018-09-11] MEDS: ASCORBIC ACID 500 MG TABLET PO SCH (10:23)
[2018-09-11 11:29] LABS: GLUCOMETER DEV NAME(LOC) 3E.I; GLUCOSE,POINT OF CARE 85 MG/DL (70-110)
[2018-09-11 17:49] LABS: GLUCOMETER DEV NAME(LOC) 3E.C; GLUCOSE,POINT OF CARE 100 MG/DL (70-110)
[2018-09-11 20:54] LABS: GLUCOMETER DEV NAME(LOC) 3E.C; GLUCOSE,POINT OF CARE 110 MG/DL (70-110)
[2018-09-12 05:34] LABS: GLUCOMETER DEV NAME(LOC) 3E.I; GLUCOSE,POINT OF CARE 118 MG/DL (70-110)
[2018-09-12] MEDS: FERROUS SULFATE 325 MG EC TABLET PO SCH ×2 (06:41→16:53)
[2018-09-12] MEDS: LEVOTHYROXINE SODIUM 50 MCG TABLET PO SCH (06:41)
[2018-09-12] MEDS: MetFORMIN HCL 500 MG TABLET PO SCH ×2 (06:42→16:53)
[2018-09-12 08:09] VITALS: BP 126/80
[2018-09-12] MEDS: SIMVASTATIN 20 MG TABLET PO SCH (09:00)
[2018-09-12] MEDS: OXYBUTYNIN CHLORIDE 5 MG ER TABLET PO SCH (09:00)
[2018-09-12] MEDS: TOPIRAMATE 100 MG TABLET PO SCH ×3 (09:00→16:54)
[2018-09-12] MEDS: MULTIVITAMINS WITH MINERALS, THERAPEUTIC TABLET PO SCH (09:00)
[2018-09-12] MEDS: FLUoxetine HCL 20 MG CAPSULE PO SCH (09:00)
[2018-09-12] MEDS: DIVALPROEX SODIUM 500 MG DR TABLET PO SCH ×2 (09:00→16:54)
[2018-09-12] MEDS: CHLORHEXIDINE GLUCONATE 4% 118 ML TOPICAL LIQUID TP SCH (09:00)
[2018-09-12] MEDS: LORATADINE 10 MG TABLET PO SCH (09:00)
[2018-09-12] MEDS: BENAZEPRIL HCL 5 MG TABLET PO SCH (09:00)
[2018-09-12] MEDS: ASCORBIC ACID 500 MG TABLET PO SCH (09:00)
[2018-09-12] MEDS: SILVER 45 ML GEL TP SCH (09:00)
[2018-09-12] MEDS: QUEtiapine FUMARATE 200 MG TABLET PO SCH ×2 (09:00→20:43)
[2018-09-12] MEDS: ASPIRIN 81 MG CHEWABLE TABLET PO SCH (09:00)
[2018-09-12] MEDS: LevETIRAcetam 250 MG TABLET PO SCH ×2 (09:00→16:52)
[2018-09-12 11:49] LABS: GLUCOMETER DEV NAME(LOC) 3E.I; GLUCOSE,POINT OF CARE 100 MG/DL (70-110)
[2018-09-12 16:43] LABS: GLUCOMETER DEV NAME(LOC) 3E.I; GLUCOSE,POINT OF CARE 127 MG/DL (70-110)
[2018-09-12 17:41] VITALS: BP 108/51
[2018-09-12 20:37] LABS: ANION GAP 8 mmol/L (8-16); CALCIUM, TOTAL 9.4 mg/dL (8.8-10.5); CARBON DIOXIDE 26 mmol/L (22-29); CHLORIDE 106 mmol/L (98-107); CREATININE 0.75 mg/dL (0.60-1.30); GLOMERULAR FILTR. RATE CALC > 60 mL/min (>60); GLUCOSE,RANDOM 125 mg/dL (70-110); POTASSIUM 4.6 mmol/L (3.5-5.1); SODIUM SERUM 140 mmol/L (136-145); UREA NITROGEN, BLOOD 25 mg/dL (7-18)
[2018-09-12 20:44] LABS: ALANINE AMINOTRANSFERASE 38 U/L (12-78); ALKALINE PHOSPHATASE 78 U/L (46-116); ASPARTATE AMINOTRANSFERASE 25 U/L (15-37); BILIRUBIN,TOTAL 0.3 mg/dL (0.1-1.0); VALPROIC ACID 49 mcg/mL (50-100)
[2018-09-12 21:38] LABS: GLUCOMETER DEV NAME(LOC) 3E.I; GLUCOSE,POINT OF CARE 120 MG/DL (70-110)
[2018-09-13 05:08] VITALS: BP 123/63
[2018-09-13 05:54] LABS: GLUCOMETER DEV NAME(LOC) 3E.I; GLUCOSE,POINT OF CARE 116 MG/DL (70-110)
[2018-09-13] MEDS: FERROUS SULFATE 325 MG EC TABLET PO SCH ×2 (06:43→17:35)
[2018-09-13] MEDS: LEVOTHYROXINE SODIUM 50 MCG TABLET PO SCH (06:43)
[2018-09-13] MEDS: MetFORMIN HCL 500 MG TABLET PO SCH ×2 (06:44→17:35)
[2018-09-13] MEDS: LevETIRAcetam 250 MG TABLET PO SCH ×2 (08:43→17:35)
[2018-09-13] MEDS: QUEtiapine FUMARATE 200 MG TABLET PO SCH ×2 (08:44→20:19)
[2018-09-13] MEDS: OXYBUTYNIN CHLORIDE 5 MG ER TABLET PO SCH (08:44)
[2018-09-13] MEDS: TOPIRAMATE 100 MG TABLET PO SCH ×3 (08:44→17:35)
[2018-09-13] MEDS: ASCORBIC ACID 500 MG TABLET PO SCH (08:44)
[2018-09-13] MEDS: DIVALPROEX SODIUM 500 MG DR TABLET PO SCH ×2 (08:44→17:35)
[2018-09-13] MEDS: MULTIVITAMINS WITH MINERALS, THERAPEUTIC TABLET PO SCH (08:44)
[2018-09-13] MEDS: HALOPERIDOL 5 MG TABLET PO PRN (08:44)
[2018-09-13] MEDS: FLUoxetine HCL 20 MG CAPSULE PO SCH (08:44)
[2018-09-13] MEDS: LORATADINE 10 MG TABLET PO SCH (08:44)
[2018-09-13] MEDS: BENAZEPRIL HCL 5 MG TABLET PO SCH (08:44)
[2018-09-13] MEDS: SIMVASTATIN 20 MG TABLET PO SCH (08:44)
[2018-09-13] MEDS: ASPIRIN 81 MG CHEWABLE TABLET PO SCH (08:45)
[2018-09-13 09:01] VITALS: BP 106/59
[2018-09-13 11:34] LABS: GLUCOMETER DEV NAME(LOC) 3E.I; GLUCOSE,POINT OF CARE 164 MG/DL (70-110)
[2018-09-13] MEDS: INSULIN LISPRO 100 UNITS/ML SQ PRN (12:13)
[2018-09-13] MEDS: SILVER 45 ML GEL TP SCH (13:39)
[2018-09-13] MEDS: CHLORHEXIDINE GLUCONATE 4% 118 ML TOPICAL LIQUID TP SCH (13:39)
[2018-09-13 16:29] LABS: GLUCOMETER DEV NAME(LOC) 3E.I; GLUCOSE,POINT OF CARE 74 MG/DL (70-110)
[2018-09-13 21:40] LABS: GLUCOMETER DEV NAME(LOC) 3E.I; GLUCOSE,POINT OF CARE 121 MG/DL (70-110)
[2018-09-14 05:59] LABS: GLUCOMETER DEV NAME(LOC) 3E.I; GLUCOSE,POINT OF CARE 84 MG/DL (70-110)
[2018-09-14 07:01] LABS: BASOPHILS % (AUTO) 0.1 % (0.0-2.0); EOSINOPHILS % (AUTO) 0.2 % (1.0-6.0); HEMATOCRIT 35.7 % (36-46); HEMOGLOBIN 11.9 g/dL (12.0-16.0); LYMPHOCYTES % (AUTO) 57.4 % (22.0-44.0); MEAN CORPUSCULAR HEMOGLOBIN 33.4 pg (26.0-34.0); MEAN CORPUSCULAR HGB CONC 33.5 G/dL (31.0-37.0); MEAN CORPUSCULAR VOLUME 100 fL (80-100); MONOCYTES # (AUTO) 0.4 K/uL (0.1-1.0); MONOCYTES % (AUTO) 8.6 % (2.0-9.0); NEUTROPHILS # (AUTO) 1.7 K/uL (1.8-7.7); NEUTROPHILS % (AUTO) 33.7 % (40.0-70.0); PLATELET COUNT (AUTO) 102 K/uL (150-450); RED BLOOD CELL COUNT(AUTO) 3.57 MIL/uL (4.00-5.20); RED CELL DISTRIBUTION WIDTH 13.9 % (11.5-14.5)
[2018-09-14] MEDS: FERROUS SULFATE 325 MG EC TABLET PO SCH ×2 (07:14→17:17)
[2018-09-14] MEDS: MetFORMIN HCL 500 MG TABLET PO SCH ×2 (07:14→17:16)
[2018-09-14] MEDS: LEVOTHYROXINE SODIUM 50 MCG TABLET PO SCH (07:14)
[2018-09-14 07:17] LABS: HEMOGLOBIN A1C 6.1 % (4.5-6.2)
[2018-09-14 07:25] LABS: ALANINE AMINOTRANSFERASE 29 U/L (12-78); ALBUMIN 2.4 g/dL (3.4-5.0); ALKALINE PHOSPHATASE 55 U/L (46-116); ANION GAP 5 mmol/L (8-16); ASPARTATE AMINOTRANSFERASE 21 U/L (15-37); BILIRUBIN,TOTAL 0.2 mg/dL (0.1-1.0); CARBON DIOXIDE 28 mmol/L (22-29); CHLORIDE 108 mmol/L (98-107); CREATININE 0.56 mg/dL (0.60-1.30); GLOMERULAR FILTR. RATE CALC > 60 mL/min (>60); GLUCOSE,RANDOM 88 mg/dL (70-110); PHOSPHORUS 4.5 mg/dL (2.5-4.9); POTASSIUM 4.6 mmol/L (3.5-5.1); SODIUM SERUM 141 mmol/L (136-145); THYROID STIMULATING HORMONE 5.23 uIU/mL (0.36-3.74); TOTAL PROTEIN, SERUM 5.9 g/dL (6.4-8.2); UREA NITROGEN, BLOOD 16 mg/dL (7-18)
[2018-09-14 08:05] VITALS: BP 141/97
[2018-09-14] MEDS: ASPIRIN 81 MG CHEWABLE TABLET PO SCH (08:06)
[2018-09-14] MEDS: LORATADINE 10 MG TABLET PO SCH (08:06)
[2018-09-14] MEDS: QUEtiapine FUMARATE 200 MG TABLET PO SCH ×2 (08:06→20:39)
[2018-09-14] MEDS: DIVALPROEX SODIUM 500 MG DR TABLET PO SCH ×2 (08:06→17:16)
[2018-09-14] MEDS: SIMVASTATIN 20 MG TABLET PO SCH (08:06)
[2018-09-14] MEDS: FLUoxetine HCL 20 MG CAPSULE PO SCH (08:07)
[2018-09-14] MEDS: LevETIRAcetam 250 MG TABLET PO SCH ×2 (08:07→17:17)
[2018-09-14] MEDS: ASCORBIC ACID 500 MG TABLET PO SCH (08:07)
[2018-09-14] MEDS: TOPIRAMATE 100 MG TABLET PO SCH ×3 (08:07→17:17)
[2018-09-14] MEDS: MULTIVITAMINS WITH MINERALS, THERAPEUTIC TABLET PO SCH (08:07)
[2018-09-14] MEDS: BENAZEPRIL HCL 5 MG TABLET PO SCH (08:08)
[2018-09-14] MEDS: OXYBUTYNIN CHLORIDE 5 MG ER TABLET PO SCH (08:08)
[2018-09-14 10:19] VITALS: BP 141/97
[2018-09-14] MEDS: INSULIN LISPRO 100 UNITS/ML SQ PRN ×2 (11:34→21:33)
[2018-09-14 11:39] LABS: GLUCOMETER DEV NAME(LOC) 3E.I; GLUCOSE,POINT OF CARE 89 MG/DL (70-110)
[2018-09-14] MEDS: SILVER 45 ML GEL TP SCH (12:56)
[2018-09-14] MEDS: CHLORHEXIDINE GLUCONATE 4% 118 ML TOPICAL LIQUID TP SCH (12:56)
[2018-09-14] MEDS: HALOPERIDOL 5 MG TABLET PO PRN (12:57)
[2018-09-14 16:34] LABS: GLUCOMETER DEV NAME(LOC) 3E.I; GLUCOSE,POINT OF CARE 131 MG/DL (70-110)
[2018-09-14 16:35] VITALS: BP 102/59
[2018-09-14 20:59] LABS: GLUCOMETER DEV NAME(LOC) 3E.I; GLUCOSE,POINT OF CARE 178 MG/DL (70-110)
[2018-09-15 05:48] LABS: GLUCOMETER DEV NAME(LOC) 3E.I; GLUCOSE,POINT OF CARE 111 MG/DL (70-110)
[2018-09-15] MEDS: LEVOTHYROXINE SODIUM 75 MCG TABLET PO SCH (06:45)
[2018-09-15] MEDS: FERROUS SULFATE 325 MG EC TABLET PO SCH ×2 (06:46→17:21)
[2018-09-15] MEDS: MetFORMIN HCL 500 MG TABLET PO SCH ×2 (06:48→16:32)
[2018-09-15 08:03] VITALS: BP 100/59
[2018-09-15] MEDS: HALOPERIDOL 5 MG TABLET PO PRN (08:08)
[2018-09-15] MEDS: DIVALPROEX SODIUM 500 MG DR TABLET PO SCH ×2 (08:08→17:20)
[2018-09-15] MEDS: QUEtiapine FUMARATE 200 MG TABLET PO SCH ×2 (08:08→20:12)
[2018-09-15] MEDS: TOPIRAMATE 100 MG TABLET PO SCH ×3 (08:09→17:20)
[2018-09-15] MEDS: OXYBUTYNIN CHLORIDE 5 MG ER TABLET PO SCH (08:09)
[2018-09-15] MEDS: MULTIVITAMINS WITH MINERALS, THERAPEUTIC TABLET PO SCH (08:09)
[2018-09-15] MEDS: BENAZEPRIL HCL 5 MG TABLET PO SCH (08:09)
[2018-09-15] MEDS: MAGNESIUM OXIDE 400 MG TABLET PO SCH ×2 (08:09→17:20)
[2018-09-15] MEDS: FLUoxetine HCL 20 MG CAPSULE PO SCH (08:09)
[2018-09-15] MEDS: ASPIRIN 81 MG CHEWABLE TABLET PO SCH (08:09)
[2018-09-15] MEDS: LORATADINE 10 MG TABLET PO SCH (08:09)
[2018-09-15] MEDS: LevETIRAcetam 250 MG TABLET PO SCH ×2 (08:09→17:21)
[2018-09-15] MEDS: SIMVASTATIN 20 MG TABLET PO SCH (08:09)
[2018-09-15] MEDS: ASCORBIC ACID 500 MG TABLET PO SCH (08:10)
[2018-09-15 11:28] LABS: GLUCOMETER DEV NAME(LOC) 3E.I; GLUCOSE,POINT OF CARE 143 MG/DL (70-110)
[2018-09-15] MEDS: INSULIN LISPRO 100 UNITS/ML SQ PRN (11:43)
[2018-09-15] MEDS: CHLORHEXIDINE GLUCONATE 4% 118 ML TOPICAL LIQUID TP SCH (14:27)
[2018-09-15] MEDS: SILVER 45 ML GEL TP SCH ×2 (14:27→15:15)
[2018-09-15 16:34] LABS: GLUCOMETER DEV NAME(LOC) 3E.I; GLUCOSE,POINT OF CARE 133 MG/DL (70-110)
[2018-09-15 17:24] VITALS: BP 108/61
[2018-09-16 05:54] LABS: GLUCOMETER DEV NAME(LOC) 3E.I; GLUCOSE,POINT OF CARE 119 MG/DL (70-110)
[2018-09-16] MEDS: INSULIN LISPRO 100 UNITS/ML SQ PRN ×2 (06:48→11:26)
[2018-09-16] MEDS: MetFORMIN HCL 500 MG TABLET PO SCH ×2 (06:51→17:11)
[2018-09-16] MEDS: LEVOTHYROXINE SODIUM 75 MCG TABLET PO SCH (06:51)
[2018-09-16] MEDS: FERROUS SULFATE 325 MG EC TABLET PO SCH ×2 (06:52→17:10)
[2018-09-16 08:00] VITALS: BP 116/74
[2018-09-16] MEDS: FLUoxetine HCL 20 MG CAPSULE PO SCH (08:07)
[2018-09-16] MEDS: MAGNESIUM OXIDE 400 MG TABLET PO SCH ×2 (08:07→17:11)
[2018-09-16] MEDS: QUEtiapine FUMARATE 200 MG TABLET PO SCH ×2 (08:07→20:46)
[2018-09-16] MEDS: LORATADINE 10 MG TABLET PO SCH (08:07)
[2018-09-16] MEDS: DIVALPROEX SODIUM 500 MG DR TABLET PO SCH ×2 (08:07→17:10)
[2018-09-16] MEDS: HALOPERIDOL 5 MG TABLET PO PRN (08:08)
[2018-09-16] MEDS: BENAZEPRIL HCL 5 MG TABLET PO SCH (08:08)
[2018-09-16] MEDS: ASPIRIN 81 MG CHEWABLE TABLET PO SCH (08:08)
[2018-09-16] MEDS: SIMVASTATIN 20 MG TABLET PO SCH (08:08)
[2018-09-16] MEDS: ASCORBIC ACID 500 MG TABLET PO SCH (08:08)
[2018-09-16] MEDS: OXYBUTYNIN CHLORIDE 5 MG ER TABLET PO SCH (08:08)
[2018-09-16] MEDS: MULTIVITAMINS WITH MINERALS, THERAPEUTIC TABLET PO SCH (08:08)
[2018-09-16] MEDS: TOPIRAMATE 100 MG TABLET PO SCH ×3 (08:08→17:10)
[2018-09-16] MEDS: LevETIRAcetam 250 MG TABLET PO SCH ×2 (08:09→17:10)
[2018-09-16 11:29] LABS: GLUCOMETER DEV NAME(LOC) 3E.I; GLUCOSE,POINT OF CARE 142 MG/DL (70-110)
[2018-09-16] MEDS: SILVER 45 ML GEL TP SCH (13:46)
[2018-09-16] MEDS: CHLORHEXIDINE GLUCONATE 4% 118 ML TOPICAL LIQUID TP SCH (13:46)
[2018-09-16 16:44] LABS: GLUCOMETER DEV NAME(LOC) 3E.I; GLUCOSE,POINT OF CARE 98 MG/DL (70-110)
[2018-09-16 20:14] VITALS: BP 109/68
[2018-09-16 20:54] LABS: GLUCOMETER DEV NAME(LOC) 3E.I; GLUCOSE,POINT OF CARE 120 MG/DL (70-110)
[2018-09-17 05:34] LABS: GLUCOMETER DEV NAME(LOC) 3E.I; GLUCOSE,POINT OF CARE 74 MG/DL (70-110)
[2018-09-17] MEDS: LEVOTHYROXINE SODIUM 75 MCG TABLET PO SCH (06:41)
[2018-09-17] MEDS: MetFORMIN HCL 500 MG TABLET PO SCH ×2 (06:41→17:32)
[2018-09-17] MEDS: FERROUS SULFATE 325 MG EC TABLET PO SCH ×2 (06:41→17:32)
[2018-09-17] MEDS: ASPIRIN 81 MG CHEWABLE TABLET PO SCH (09:21)
[2018-09-17] MEDS: DIVALPROEX SODIUM 500 MG DR TABLET PO SCH ×2 (09:22→17:31)
[2018-09-17] MEDS: TOPIRAMATE 100 MG TABLET PO SCH ×3 (09:22→17:32)
[2018-09-17] MEDS: LORATADINE 10 MG TABLET PO SCH (09:22)
[2018-09-17] MEDS: OXYBUTYNIN CHLORIDE 5 MG ER TABLET PO SCH (09:22)
[2018-09-17] MEDS: LevETIRAcetam 250 MG TABLET PO SCH ×2 (09:22→17:31)
[2018-09-17] MEDS: BENAZEPRIL HCL 5 MG TABLET PO SCH (09:23)
[2018-09-17] MEDS: FLUoxetine HCL 20 MG CAPSULE PO SCH (09:23)
[2018-09-17] MEDS: QUEtiapine FUMARATE 200 MG TABLET PO SCH ×2 (09:23→21:19)
[2018-09-17] MEDS: MULTIVITAMINS WITH MINERALS, THERAPEUTIC TABLET PO SCH (09:24)
[2018-09-17] MEDS: SIMVASTATIN 20 MG TABLET PO SCH (09:24)
[2018-09-17] MEDS: ASCORBIC ACID 500 MG TABLET PO SCH (09:25)
[2018-09-17] MEDS: MAGNESIUM OXIDE 400 MG TABLET PO SCH ×2 (10:07→17:32)
[2018-09-17] MEDS: CHLORHEXIDINE GLUCONATE 4% 118 ML TOPICAL LIQUID TP SCH (10:07)
[2018-09-17] MEDS: SILVER 45 ML GEL TP SCH (10:08)
[2018-09-17 11:29] LABS: GLUCOMETER DEV NAME(LOC) 3E.I; GLUCOSE,POINT OF CARE 126 MG/DL (70-110)
[2018-09-17 13:39] VITALS: BP 113/56
[2018-09-17 16:13] LABS: GLUCOMETER DEV NAME(LOC) 3E.I; GLUCOSE,POINT OF CARE 75 MG/DL (70-110)
[2018-09-17 17:57] VITALS: BP 115/69
[2018-09-17 20:53] LABS: GLUCOMETER DEV NAME(LOC) 3E.I; GLUCOSE,POINT OF CARE 133 MG/DL (70-110)
[2018-09-18 05:29] LABS: GLUCOMETER DEV NAME(LOC) 3E.I; GLUCOSE,POINT OF CARE 93 MG/DL (70-110)
[2018-09-18] MEDS: FERROUS SULFATE 325 MG EC TABLET PO SCH ×2 (06:32→16:41)
[2018-09-18] MEDS: MetFORMIN HCL 500 MG TABLET PO SCH ×2 (06:32→16:41)
[2018-09-18] MEDS: LEVOTHYROXINE SODIUM 75 MCG TABLET PO SCH (06:32)
[2018-09-18] MEDS: MULTIVITAMINS WITH MINERALS, THERAPEUTIC TABLET PO SCH (08:09)
[2018-09-18] MEDS: ASPIRIN 81 MG CHEWABLE TABLET PO SCH (08:09)
[2018-09-18] MEDS: DIVALPROEX SODIUM 500 MG DR TABLET PO SCH ×2 (08:10→16:41)
[2018-09-18] MEDS: SIMVASTATIN 20 MG TABLET PO SCH (08:10)
[2018-09-18] MEDS: LORATADINE 10 MG TABLET PO SCH (08:10)
[2018-09-18] MEDS: OXYBUTYNIN CHLORIDE 5 MG ER TABLET PO SCH (08:10)
[2018-09-18] MEDS: MAGNESIUM OXIDE 400 MG TABLET PO SCH ×2 (08:10→16:41)
[2018-09-18] MEDS: ASCORBIC ACID 500 MG TABLET PO SCH (08:10)
[2018-09-18] MEDS: LevETIRAcetam 250 MG TABLET PO SCH ×2 (08:10→16:42)
[2018-09-18] MEDS: HALOPERIDOL 5 MG TABLET PO PRN (08:10)
[2018-09-18] MEDS: BENAZEPRIL HCL 5 MG TABLET PO SCH (08:10)
[2018-09-18] MEDS: TOPIRAMATE 100 MG TABLET PO SCH ×3 (08:11→16:41)
[2018-09-18] MEDS: OMEPRAZOLE 20 MG CAPSULE PO PRN (08:11)
[2018-09-18] MEDS: QUEtiapine FUMARATE 200 MG TABLET PO SCH ×2 (08:11→20:43)
[2018-09-18] MEDS: FLUoxetine HCL 20 MG CAPSULE PO SCH (08:11)
[2018-09-18] MEDS: CHLORHEXIDINE GLUCONATE 4% 118 ML TOPICAL LIQUID TP SCH (09:00)
[2018-09-18] MEDS: SILVER 45 ML GEL TP SCH (09:00)
[2018-09-18 11:19] LABS: GLUCOMETER DEV NAME(LOC) 3E.I; GLUCOSE,POINT OF CARE 123 MG/DL (70-110)
[2018-09-18 13:31] VITALS: BP 121/82
[2018-09-18 17:19] LABS: GLUCOMETER DEV NAME(LOC) 3E.I; GLUCOSE,POINT OF CARE 89 MG/DL (70-110)
[2018-09-18 19:53] VITALS: BP 117/74
[2018-09-18] MEDS: INSULIN LISPRO 100 UNITS/ML SQ PRN (22:04)
[2018-09-18 22:20] LABS: GLUCOMETER DEV NAME(LOC) 3E.I; GLUCOSE,POINT OF CARE 141 MG/DL (70-110)
[2018-09-19 05:24] LABS: GLUCOMETER DEV NAME(LOC) 3E.I; GLUCOSE,POINT OF CARE 123 MG/DL (70-110)
[2018-09-19] MEDS: LEVOTHYROXINE SODIUM 75 MCG TABLET PO SCH (06:27)
[2018-09-19] MEDS: LORATADINE 10 MG TABLET PO SCH (09:48)
[2018-09-19] MEDS: ASPIRIN 81 MG CHEWABLE TABLET PO SCH (09:48)
[2018-09-19] MEDS: OXYBUTYNIN CHLORIDE 5 MG ER TABLET PO SCH (09:48)
[2018-09-19] MEDS: LevETIRAcetam 250 MG TABLET PO SCH ×2 (09:48→16:27)
[2018-09-19] MEDS: FLUoxetine HCL 20 MG CAPSULE PO SCH (09:48)
[2018-09-19] MEDS: QUEtiapine FUMARATE 200 MG TABLET PO SCH ×2 (09:48→20:00)
[2018-09-19] MEDS: TOPIRAMATE 100 MG TABLET PO SCH ×3 (09:48→16:27)
[2018-09-19] MEDS: SIMVASTATIN 20 MG TABLET PO SCH (09:48)
[2018-09-19] MEDS: MAGNESIUM OXIDE 400 MG TABLET PO SCH ×2 (09:48→16:28)
[2018-09-19] MEDS: MULTIVITAMINS WITH MINERALS, THERAPEUTIC TABLET PO SCH (09:48)
[2018-09-19] MEDS: ASCORBIC ACID 500 MG TABLET PO SCH (09:48)
[2018-09-19] MEDS: DIVALPROEX SODIUM 500 MG DR TABLET PO SCH ×2 (09:48→16:27)
[2018-09-19] MEDS: BENAZEPRIL HCL 5 MG TABLET PO SCH (09:49)
[2018-09-19 11:39] LABS: GLUCOMETER DEV NAME(LOC) 3E.I; GLUCOSE,POINT OF CARE 97 MG/DL (70-110)
[2018-09-19] MEDS: CHLORHEXIDINE GLUCONATE 4% 118 ML TOPICAL LIQUID TP SCH (12:18)
[2018-09-19] MEDS: SILVER 45 ML GEL TP SCH (12:19)
[2018-09-19 14:10] VITALS: BP 158/61
[2018-09-19 16:10] VITALS: BP 121/79
[2018-09-19] MEDS: MetFORMIN HCL 500 MG TABLET PO SCH (16:31)
[2018-09-19] MEDS: FERROUS SULFATE 325 MG EC TABLET PO SCH (16:31)
[2018-09-19 17:33] LABS: GLUCOMETER DEV NAME(LOC) 3E.I; GLUCOSE,POINT OF CARE 113 MG/DL (70-110)
[2018-09-19 20:09] LABS: GLUCOMETER DEV NAME(LOC) 3E.I; GLUCOSE,POINT OF CARE 131 MG/DL (70-110)
[2018-09-20 06:19] LABS: GLUCOMETER DEV NAME(LOC) 3E.I; GLUCOSE,POINT OF CARE 89 MG/DL (70-110)
[2018-09-20] MEDS: FERROUS SULFATE 325 MG EC TABLET PO SCH ×2 (06:44→16:34)
[2018-09-20] MEDS: MetFORMIN HCL 500 MG TABLET PO SCH ×2 (06:44→16:34)
[2018-09-20] MEDS: LEVOTHYROXINE SODIUM 75 MCG TABLET PO SCH (06:44)
[2018-09-20] MEDS: HALOPERIDOL 5 MG TABLET PO PRN (08:00)
[2018-09-20] MEDS: CHLORHEXIDINE GLUCONATE 4% 118 ML TOPICAL LIQUID TP SCH (08:01)
[2018-09-20] MEDS: DIVALPROEX SODIUM 500 MG DR TABLET PO SCH ×2 (08:02→16:34)
[2018-09-20] MEDS: SILVER 45 ML GEL TP SCH (08:02)
[2018-09-20] MEDS: FLUoxetine HCL 20 MG CAPSULE PO SCH (08:02)
[2018-09-20] MEDS: TOPIRAMATE 100 MG TABLET PO SCH ×3 (08:03→16:34)
[2018-09-20] MEDS: SIMVASTATIN 20 MG TABLET PO SCH (08:03)
[2018-09-20] MEDS: QUEtiapine FUMARATE 200 MG TABLET PO SCH ×2 (08:03→20:18)
[2018-09-20] MEDS: LORATADINE 10 MG TABLET PO SCH (08:03)
[2018-09-20] MEDS: BENAZEPRIL HCL 5 MG TABLET PO SCH (08:03)
[2018-09-20] MEDS: MAGNESIUM OXIDE 400 MG TABLET PO SCH ×2 (08:03→16:35)
[2018-09-20] MEDS: OXYBUTYNIN CHLORIDE 5 MG ER TABLET PO SCH (08:03)
[2018-09-20] MEDS: ASCORBIC ACID 500 MG TABLET PO SCH (08:04)
[2018-09-20] MEDS: MULTIVITAMINS WITH MINERALS, THERAPEUTIC TABLET PO SCH (08:04)
[2018-09-20] MEDS: ASPIRIN 81 MG CHEWABLE TABLET PO SCH (08:04)
[2018-09-20] MEDS: LevETIRAcetam 250 MG TABLET PO SCH ×2 (08:04→16:34)
[2018-09-20 11:14] LABS: GLUCOMETER DEV NAME(LOC) 3E.I; GLUCOSE,POINT OF CARE 112 MG/DL (70-110)
[2018-09-20 17:04] LABS: GLUCOMETER DEV NAME(LOC) 3E.I; GLUCOSE,POINT OF CARE 84 MG/DL (70-110)
[2018-09-20 20:23] LABS: GLUCOMETER DEV NAME(LOC) 3E.I; GLUCOSE,POINT OF CARE 120 MG/DL (70-110)
[2018-09-20 20:43] VITALS: BP 100/79
[2018-09-21] MEDS: FERROUS SULFATE 325 MG EC TABLET PO SCH ×2 (06:45→17:33)
[2018-09-21] MEDS: LEVOTHYROXINE SODIUM 75 MCG TABLET PO SCH (06:45)
[2018-09-21] MEDS: MetFORMIN HCL 500 MG TABLET PO SCH ×2 (06:46→17:33)
[2018-09-21 06:49] LABS: GLUCOMETER DEV NAME(LOC) 3E.I; GLUCOSE,POINT OF CARE 62 MG/DL (70-110)
[2018-09-21 06:49] LABS: GLUCOMETER DEV NAME(LOC) 3E.I; GLUCOSE,POINT OF CARE 154 MG/DL (70-110)
[2018-09-21] MEDS: TOPIRAMATE 100 MG TABLET PO SCH ×3 (07:53→17:33)
[2018-09-21] MEDS: LORATADINE 10 MG TABLET PO SCH (07:53)
[2018-09-21] MEDS: BENAZEPRIL HCL 5 MG TABLET PO SCH (07:53)
[2018-09-21] MEDS: QUEtiapine FUMARATE 200 MG TABLET PO SCH ×2 (07:53→20:51)
[2018-09-21] MEDS: MULTIVITAMINS WITH MINERALS, THERAPEUTIC TABLET PO SCH (07:53)
[2018-09-21] MEDS: FLUoxetine HCL 20 MG CAPSULE PO SCH (07:53)
[2018-09-21] MEDS: DIVALPROEX SODIUM 500 MG DR TABLET PO SCH ×2 (07:53→17:33)
[2018-09-21] MEDS: MAGNESIUM OXIDE 400 MG TABLET PO SCH ×2 (07:53→17:33)
[2018-09-21] MEDS: ASCORBIC ACID 500 MG TABLET PO SCH (07:53)
[2018-09-21] MEDS: ASPIRIN 81 MG CHEWABLE TABLET PO SCH (07:53)
[2018-09-21] MEDS: LevETIRAcetam 250 MG TABLET PO SCH ×2 (07:54→17:33)
[2018-09-21] MEDS: OXYBUTYNIN CHLORIDE 5 MG ER TABLET PO SCH (07:54)
[2018-09-21] MEDS: SIMVASTATIN 20 MG TABLET PO SCH (07:54)
[2018-09-21] MEDS: CHLORHEXIDINE GLUCONATE 4% 118 ML TOPICAL LIQUID TP SCH (12:58)
[2018-09-21 16:22] VITALS: BP 98/56
[2018-09-21 16:43] LABS: GLUCOMETER DEV NAME(LOC) 3E.I; GLUCOSE,POINT OF CARE 101 MG/DL (70-110)
[2018-09-21 21:19] LABS: GLUCOMETER DEV NAME(LOC) 3E.I; GLUCOSE,POINT OF CARE 133 MG/DL (70-110)
[2018-09-22 05:59] LABS: GLUCOMETER DEV NAME(LOC) 3E.I; GLUCOSE,POINT OF CARE 79 MG/DL (70-110)
[2018-09-22] MEDS: FERROUS SULFATE 325 MG EC TABLET PO SCH ×2 (06:42→17:02)
[2018-09-22] MEDS: MetFORMIN HCL 500 MG TABLET PO SCH ×2 (06:42→17:02)
[2018-09-22] MEDS: LEVOTHYROXINE SODIUM 75 MCG TABLET PO SCH (06:42)
[2018-09-22 08:00] VITALS: BP 125/75
[2018-09-22] MEDS: ASPIRIN 81 MG CHEWABLE TABLET PO SCH (08:03)
[2018-09-22] MEDS: LORATADINE 10 MG TABLET PO SCH (08:03)
[2018-09-22] MEDS: TOPIRAMATE 100 MG TABLET PO SCH ×3 (08:04→17:02)
[2018-09-22] MEDS: SIMVASTATIN 20 MG TABLET PO SCH (08:04)
[2018-09-22] MEDS: ASCORBIC ACID 500 MG TABLET PO SCH (08:04)
[2018-09-22] MEDS: LevETIRAcetam 250 MG TABLET PO SCH ×2 (08:04→17:02)
[2018-09-22] MEDS: QUEtiapine FUMARATE 200 MG TABLET PO SCH ×2 (08:04→20:35)
[2018-09-22] MEDS: BENAZEPRIL HCL 5 MG TABLET PO SCH (08:04)
[2018-09-22] MEDS: DIVALPROEX SODIUM 500 MG DR TABLET PO SCH ×2 (08:04→17:02)
[2018-09-22] MEDS: OXYBUTYNIN CHLORIDE 5 MG ER TABLET PO SCH (08:04)
[2018-09-22] MEDS: MULTIVITAMINS WITH MINERALS, THERAPEUTIC TABLET PO SCH (08:04)
[2018-09-22] MEDS: FLUoxetine HCL 20 MG CAPSULE PO SCH (08:05)
[2018-09-22] MEDS: MAGNESIUM OXIDE 400 MG TABLET PO SCH ×2 (08:06→17:02)
[2018-09-22] MEDS: CHLORHEXIDINE GLUCONATE 4% 118 ML TOPICAL LIQUID TP SCH (08:43)
[2018-09-22] MEDS: HALOPERIDOL 5 MG TABLET PO PRN (09:42)
[2018-09-22 16:05] VITALS: BP 122/77
[2018-09-22] MEDS: INSULIN LISPRO 100 UNITS/ML SQ PRN (17:03)
[2018-09-22 17:09] LABS: GLUCOMETER DEV NAME(LOC) 3E.I; GLUCOSE,POINT OF CARE 153 MG/DL (70-110)
[2018-09-23 06:14] LABS: GLUCOMETER DEV NAME(LOC) 3E.I; GLUCOSE,POINT OF CARE 92 MG/DL (70-110)
[2018-09-23] MEDS: FERROUS SULFATE 325 MG EC TABLET PO SCH ×2 (06:58→16:35)
[2018-09-23] MEDS: LEVOTHYROXINE SODIUM 75 MCG TABLET PO SCH (06:58)
[2018-09-23] MEDS: MetFORMIN HCL 500 MG TABLET PO SCH ×2 (06:59→16:36)
[2018-09-23] MEDS: LevETIRAcetam 250 MG TABLET PO SCH ×2 (08:43→16:36)
[2018-09-23] MEDS: OXYBUTYNIN CHLORIDE 5 MG ER TABLET PO SCH (08:44)
[2018-09-23] MEDS: TOPIRAMATE 100 MG TABLET PO SCH ×3 (08:44→16:36)
[2018-09-23] MEDS: BENAZEPRIL HCL 5 MG TABLET PO SCH (08:44)
[2018-09-23] MEDS: ASCORBIC ACID 500 MG TABLET PO SCH (08:44)
[2018-09-23] MEDS: MULTIVITAMINS WITH MINERALS, THERAPEUTIC TABLET PO SCH (08:47)
[2018-09-23] MEDS: LORATADINE 10 MG TABLET PO SCH (08:47)
[2018-09-23] MEDS: DOCUSATE SODIUM 100 MG CAPSULE PO PRN (08:47)
[2018-09-23] MEDS: MAGNESIUM OXIDE 400 MG TABLET PO SCH ×2 (08:47→16:37)
[2018-09-23] MEDS: FLUoxetine HCL 20 MG CAPSULE PO SCH (08:47)
[2018-09-23] MEDS: ASPIRIN 81 MG CHEWABLE TABLET PO SCH (08:48)
[2018-09-23] MEDS: DIVALPROEX SODIUM 500 MG DR TABLET PO SCH ×2 (08:48→16:36)
[2018-09-23] MEDS: OMEPRAZOLE 20 MG CAPSULE PO PRN (08:48)
[2018-09-23] MEDS: QUEtiapine FUMARATE 200 MG TABLET PO SCH ×2 (08:48→20:34)
[2018-09-23] MEDS: SIMVASTATIN 20 MG TABLET PO SCH (08:48)
[2018-09-23] MEDS: HALOPERIDOL 5 MG TABLET PO PRN (08:48)
[2018-09-23] MEDS: CHLORHEXIDINE GLUCONATE 4% 118 ML TOPICAL LIQUID TP SCH (08:49)
[2018-09-23 11:59] LABS: GLUCOMETER DEV NAME(LOC) 3E.I; GLUCOSE,POINT OF CARE 80 MG/DL (70-110)
[2018-09-23 16:44] LABS: GLUCOMETER DEV NAME(LOC) 3E.I; GLUCOSE,POINT OF CARE 146 MG/DL (70-110)
[2018-09-23 16:55] VITALS: BP 121/67
[2018-09-23] MEDS: INSULIN LISPRO 100 UNITS/ML SQ PRN (17:35)
[2018-09-23 23:04] LABS: GLUCOMETER DEV NAME(LOC) 3E.I; GLUCOSE,POINT OF CARE 119 MG/DL (70-110)
[2018-09-24 01:52] VITALS: BP 118/62
[2018-09-24] MEDS ORDERED: GLUCAGON,HUMAN RECOMBINANT 1 MG VIAL IM PRN (05:00)
[2018-09-24] MEDS: MetFORMIN HCL 500 MG TABLET PO SCH ×2 (06:43→16:16)
[2018-09-24] MEDS: LEVOTHYROXINE SODIUM 75 MCG TABLET PO SCH (06:43)
[2018-09-24] MEDS: FERROUS SULFATE 325 MG EC TABLET PO SCH ×2 (06:43→16:16)
[2018-09-24 06:59] LABS: GLUCOMETER DEV NAME(LOC) BV2X.; GLUCOSE,POINT OF CARE 122 MG/DL (70-110)
[2018-09-24] MEDS: MAGNESIUM OXIDE 400 MG TABLET PO SCH ×2 (09:25→16:16)
[2018-09-24] MEDS: TOPIRAMATE 100 MG TABLET PO SCH ×3 (09:25→16:16)
[2018-09-24] MEDS: MULTIVITAMINS WITH MINERALS, THERAPEUTIC TABLET PO SCH (09:25)
[2018-09-24] MEDS: SIMVASTATIN 20 MG TABLET PO SCH (09:25)
[2018-09-24] MEDS: DIVALPROEX SODIUM 500 MG DR TABLET PO SCH ×2 (09:25→16:16)
[2018-09-24] MEDS: ASPIRIN 81 MG CHEWABLE TABLET PO SCH (09:25)
[2018-09-24] MEDS: FLUoxetine HCL 20 MG CAPSULE PO SCH (09:25)
[2018-09-24] MEDS: QUEtiapine FUMARATE 200 MG TABLET PO SCH ×2 (09:25→20:12)
[2018-09-24] MEDS: LevETIRAcetam 250 MG TABLET PO SCH ×2 (09:26→16:16)
[2018-09-24] MEDS: BENAZEPRIL HCL 5 MG TABLET PO SCH (09:26)
[2018-09-24] MEDS: OXYBUTYNIN CHLORIDE 5 MG ER TABLET PO SCH (09:26)
[2018-09-24] MEDS: ASCORBIC ACID 500 MG TABLET PO SCH (09:26)
[2018-09-24 09:42] VITALS: BP 102/63
[2018-09-24] MEDS: CHLORHEXIDINE GLUCONATE 4% 118 ML TOPICAL LIQUID TP SCH (09:48)
[2018-09-24] MEDS: LORATADINE 10 MG TABLET PO SCH (09:48)
[2018-09-24 11:54] LABS: GLUCOMETER DEV NAME(LOC) BV2X.; GLUCOSE,POINT OF CARE 87 MG/DL (70-110)
[2018-09-24 16:30] VITALS: BP 102/61
[2018-09-24 16:59] LABS: GLUCOMETER DEV NAME(LOC) BV2X.; GLUCOSE,POINT OF CARE 131 MG/DL (70-110)
[2018-09-25 01:00] VITALS: BP 118/62
[2018-09-25] MEDS: HALOPERIDOL 5 MG TABLET PO PRN ×2 (03:37→07:32)
[2018-09-25 06:24] LABS: GLUCOMETER DEV NAME(LOC) BV2X.; GLUCOSE,POINT OF CARE 109 MG/DL (70-110)
[2018-09-25] MEDS: LEVOTHYROXINE SODIUM 75 MCG TABLET PO SCH (06:59)
[2018-09-25] MEDS: FERROUS SULFATE 325 MG EC TABLET PO SCH ×2 (07:02→18:08)
[2018-09-25] MEDS: MetFORMIN HCL 500 MG TABLET PO SCH ×2 (07:02→18:08)
[2018-09-25 09:27] VITALS: BP 101/61
[2018-09-25] MEDS: ASCORBIC ACID 500 MG TABLET PO SCH (09:29)
[2018-09-25] MEDS: LevETIRAcetam 250 MG TABLET PO SCH ×2 (09:29→18:08)
[2018-09-25] MEDS: BENAZEPRIL HCL 5 MG TABLET PO SCH (09:29)
[2018-09-25] MEDS: MULTIVITAMINS WITH MINERALS, THERAPEUTIC TABLET PO SCH (09:29)
[2018-09-25] MEDS: TOPIRAMATE 100 MG TABLET PO SCH ×3 (09:29→18:08)
[2018-09-25] MEDS: FLUoxetine HCL 20 MG CAPSULE PO SCH (09:30)
[2018-09-25] MEDS: LORATADINE 10 MG TABLET PO SCH (09:30)
[2018-09-25] MEDS: OXYBUTYNIN CHLORIDE 5 MG ER TABLET PO SCH (09:30)
[2018-09-25] MEDS: MAGNESIUM OXIDE 400 MG TABLET PO SCH ×2 (09:30→18:08)
[2018-09-25] MEDS: ASPIRIN 81 MG CHEWABLE TABLET PO SCH (09:30)
[2018-09-25] MEDS: DIVALPROEX SODIUM 500 MG DR TABLET PO SCH ×2 (09:30→18:08)
[2018-09-25] MEDS: SIMVASTATIN 20 MG TABLET PO SCH (09:30)
[2018-09-25] MEDS: QUEtiapine FUMARATE 200 MG TABLET PO SCH ×2 (09:30→20:11)
[2018-09-25] MEDS: CHLORHEXIDINE GLUCONATE 4% 118 ML TOPICAL LIQUID TP SCH (09:34)
[2018-09-25 11:29] LABS: GLUCOMETER DEV NAME(LOC) BV2X.; GLUCOSE,POINT OF CARE 139 MG/DL (70-110)
[2018-09-25 16:34] LABS: GLUCOMETER DEV NAME(LOC) BV2X.; GLUCOSE,POINT OF CARE 91 MG/DL (70-110)
[2018-09-25 17:50] VITALS: BP 104/66
[2018-09-25 20:39] LABS: GLUCOMETER DEV NAME(LOC) BV2X.; GLUCOSE,POINT OF CARE 113 MG/DL (70-110)
[2018-09-26] MEDS: FERROUS SULFATE 325 MG EC TABLET PO SCH ×2 (07:10→17:53)
[2018-09-26] MEDS: MetFORMIN HCL 500 MG TABLET PO SCH ×2 (07:10→17:54)
[2018-09-26] MEDS: LEVOTHYROXINE SODIUM 75 MCG TABLET PO SCH (07:10)
[2018-09-26 07:23] LABS: GLUCOMETER DEV NAME(LOC) BV2X.; GLUCOSE,POINT OF CARE 70 MG/DL (70-110)
[2018-09-26 08:00] VITALS: BP 125/71
[2018-09-26] MEDS: TOPIRAMATE 100 MG TABLET PO SCH ×3 (08:08→17:54)
[2018-09-26] MEDS: FLUoxetine HCL 20 MG CAPSULE PO SCH (08:08)
[2018-09-26] MEDS: DIVALPROEX SODIUM 500 MG DR TABLET PO SCH ×2 (08:08→17:53)
[2018-09-26] MEDS: SIMVASTATIN 20 MG TABLET PO SCH (08:08)
[2018-09-26] MEDS: ASPIRIN 81 MG CHEWABLE TABLET PO SCH (08:08)
[2018-09-26] MEDS: MAGNESIUM OXIDE 400 MG TABLET PO SCH ×2 (08:08→17:54)
[2018-09-26] MEDS: MULTIVITAMINS WITH MINERALS, THERAPEUTIC TABLET PO SCH (08:08)
[2018-09-26] MEDS: QUEtiapine FUMARATE 200 MG TABLET PO SCH ×2 (08:08→20:44)
[2018-09-26] MEDS: OXYBUTYNIN CHLORIDE 5 MG ER TABLET PO SCH (08:09)
[2018-09-26] MEDS: BENAZEPRIL HCL 5 MG TABLET PO SCH (08:09)
[2018-09-26] MEDS: ASCORBIC ACID 500 MG TABLET PO SCH (08:09)
[2018-09-26] MEDS: LevETIRAcetam 250 MG TABLET PO SCH ×2 (08:09→17:54)
[2018-09-26] MEDS: LORATADINE 10 MG TABLET PO SCH (09:39)
[2018-09-26 11:19] LABS: GLUCOMETER DEV NAME(LOC) BV2X.; GLUCOSE,POINT OF CARE 99 MG/DL (70-110)
[2018-09-26 16:49] LABS: GLUCOMETER DEV NAME(LOC) BV2X.; GLUCOSE,POINT OF CARE 96 MG/DL (70-110)
[2018-09-26] MEDS: HALOPERIDOL 5 MG TABLET PO PRN (18:48)
[2018-09-26 21:54] LABS: GLUCOMETER DEV NAME(LOC) BV2X.; GLUCOSE,POINT OF CARE 133 MG/DL (70-110)
[2018-09-27] MEDS: HALOPERIDOL 5 MG TABLET PO PRN (02:39)
[2018-09-27 06:37] VITALS: BP 115/68
[2018-09-27] MEDS: FERROUS SULFATE 325 MG EC TABLET PO SCH ×2 (07:03→17:25)
[2018-09-27] MEDS: LEVOTHYROXINE SODIUM 75 MCG TABLET PO SCH (07:03)
[2018-09-27] MEDS: MetFORMIN HCL 500 MG TABLET PO SCH ×2 (07:03→17:25)
[2018-09-27] MEDS: SIMVASTATIN 20 MG TABLET PO SCH (08:14)
[2018-09-27] MEDS: QUEtiapine FUMARATE 200 MG TABLET PO SCH ×2 (08:14→20:59)
[2018-09-27] MEDS: DIVALPROEX SODIUM 500 MG DR TABLET PO SCH ×2 (08:14→17:24)
[2018-09-27] MEDS: LORATADINE 10 MG TABLET PO SCH (08:14)
[2018-09-27] MEDS: FLUoxetine HCL 20 MG CAPSULE PO SCH (08:14)
[2018-09-27] MEDS: TOPIRAMATE 100 MG TABLET PO SCH ×4 (08:15→17:25)
[2018-09-27] MEDS: LevETIRAcetam 250 MG TABLET PO SCH ×2 (08:15→17:25)
[2018-09-27] MEDS: MULTIVITAMINS WITH MINERALS, THERAPEUTIC TABLET PO SCH (08:15)
[2018-09-27] MEDS: ASPIRIN 81 MG CHEWABLE TABLET PO SCH (08:15)
[2018-09-27] MEDS: MAGNESIUM OXIDE 400 MG TABLET PO SCH ×2 (08:15→17:26)
[2018-09-27] MEDS: OXYBUTYNIN CHLORIDE 5 MG ER TABLET PO SCH (08:15)
[2018-09-27] MEDS: BENAZEPRIL HCL 5 MG TABLET PO SCH (08:15)
[2018-09-27] MEDS: ASCORBIC ACID 500 MG TABLET PO SCH (08:15)
[2018-09-27 08:56] VITALS: BP 121/75
[2018-09-27] MEDS ORDERED: CHLORHEXIDINE GLUCONATE 4% 118 ML TOPICAL LIQUID TP SCH (09:00)
[2018-09-27 11:14] LABS: GLUCOMETER DEV NAME(LOC) BV2X.; GLUCOSE,POINT OF CARE 130 MG/DL (70-110)
[2018-09-27 16:26] VITALS: BP 100/60
[2018-09-27 17:20] LABS: GLUCOMETER DEV NAME(LOC) BV2X.; GLUCOSE,POINT OF CARE 104 MG/DL (70-110)
[2018-09-27 21:12] LABS: GLUCOMETER DEV NAME(LOC) BV2X.; GLUCOSE,POINT OF CARE 145 MG/DL (70-110)
[2018-09-28 05:33] VITALS: BP 111/62
[2018-09-28] MEDS: FERROUS SULFATE 325 MG EC TABLET PO SCH ×2 (07:08→17:19)
[2018-09-28] MEDS: MetFORMIN HCL 500 MG TABLET PO SCH ×2 (07:08→17:19)
[2018-09-28] MEDS: LEVOTHYROXINE SODIUM 75 MCG TABLET PO SCH (07:08)
[2018-09-28 08:00] VITALS: BP 101/74
[2018-09-28] MEDS: DIVALPROEX SODIUM 500 MG DR TABLET PO SCH ×2 (09:04→17:19)
[2018-09-28] MEDS: FLUoxetine HCL 20 MG CAPSULE PO SCH (09:04)
[2018-09-28] MEDS: BENAZEPRIL HCL 5 MG TABLET PO SCH (09:04)
[2018-09-28] MEDS: TOPIRAMATE 100 MG TABLET PO SCH ×3 (09:04→17:19)
[2018-09-28] MEDS: MAGNESIUM OXIDE 400 MG TABLET PO SCH ×2 (09:04→17:19)
[2018-09-28] MEDS: MULTIVITAMINS WITH MINERALS, THERAPEUTIC TABLET PO SCH (09:04)
[2018-09-28] MEDS: ASCORBIC ACID 500 MG TABLET PO SCH (09:05)
[2018-09-28] MEDS: LevETIRAcetam 250 MG TABLET PO SCH ×2 (09:05→17:19)
[2018-09-28] MEDS: OXYBUTYNIN CHLORIDE 5 MG ER TABLET PO SCH (09:05)
[2018-09-28] MEDS: QUEtiapine FUMARATE 200 MG TABLET PO SCH ×2 (09:05→20:43)
[2018-09-28] MEDS: ASPIRIN 81 MG CHEWABLE TABLET PO SCH (09:05)
[2018-09-28] MEDS: SIMVASTATIN 20 MG TABLET PO SCH (09:06)
[2018-09-28] MEDS: LORATADINE 10 MG TABLET PO SCH (09:14)
[2018-09-28 11:14] LABS: GLUCOMETER DEV NAME(LOC) BV2X.; GLUCOSE,POINT OF CARE 134 MG/DL (70-110)
[2018-09-28] MEDS: HALOPERIDOL 5 MG TABLET PO PRN (12:20)
[2018-09-28] MEDS ORDERED: HALOPERIDOL LACTATE 5 MG/ML VIAL ONE (13:23)
[2018-09-28] MEDS ORDERED: LORazepam 2 MG/ML VIAL ONE (13:23)
[2018-09-28] MEDS ORDERED: DiphenhydrAMINE HCL 50 MG/ML VIAL ONE ×2 (13:23→13:24)
[2018-09-28] MEDS ORDERED: LORazepam 2 MG/ML VIAL IM ONE (13:45)
[2018-09-28] MEDS ORDERED: DiphenhydrAMINE HCL 50 MG/ML VIAL IM ONE (13:45)
[2018-09-28] MEDS ORDERED: HALOPERIDOL LACTATE 5 MG/ML VIAL IM ONE (13:45)
[2018-09-28 17:00] VITALS: BP 122/69
[2018-09-28 17:24] LABS: GLUCOMETER DEV NAME(LOC) BV2X.; GLUCOSE,POINT OF CARE 93 MG/DL (70-110)
[2018-09-28 20:59] LABS: GLUCOMETER DEV NAME(LOC) BV2X.; GLUCOSE,POINT OF CARE 80 MG/DL (70-110)
[2018-09-29] MEDS: LEVOTHYROXINE SODIUM 75 MCG TABLET PO SCH (07:17)
[2018-09-29] MEDS: MetFORMIN HCL 500 MG TABLET PO SCH ×2 (07:17→16:52)
[2018-09-29] MEDS: FERROUS SULFATE 325 MG EC TABLET PO SCH ×2 (07:17→16:52)
[2018-09-29 07:34] LABS: GLUCOMETER DEV NAME(LOC) BV2X.; GLUCOSE,POINT OF CARE 77 MG/DL (70-110)
[2018-09-29 08:36] VITALS: BP 100/61
[2018-09-29] MEDS: FLUoxetine HCL 20 MG CAPSULE PO SCH ×2 (08:54→09:00)
[2018-09-29] MEDS: ASPIRIN 81 MG CHEWABLE TABLET PO SCH ×2 (08:55→09:00)
[2018-09-29] MEDS: OXYBUTYNIN CHLORIDE 5 MG ER TABLET PO SCH ×2 (08:55→09:00)
[2018-09-29] MEDS: BENAZEPRIL HCL 5 MG TABLET PO SCH ×2 (08:55→09:00)
[2018-09-29] MEDS: SIMVASTATIN 20 MG TABLET PO SCH ×2 (08:55→09:00)
[2018-09-29] MEDS: LevETIRAcetam 250 MG TABLET PO SCH ×3 (08:55→16:52)
[2018-09-29] MEDS: ASCORBIC ACID 500 MG TABLET PO SCH ×2 (08:55→09:00)
[2018-09-29] MEDS: DIVALPROEX SODIUM 500 MG DR TABLET PO SCH ×3 (08:55→16:52)
[2018-09-29] MEDS: QUEtiapine FUMARATE 200 MG TABLET PO SCH ×3 (08:55→21:13)
[2018-09-29] MEDS: MAGNESIUM OXIDE 400 MG TABLET PO SCH ×3 (08:55→16:51)
[2018-09-29] MEDS: LORATADINE 10 MG TABLET PO SCH ×2 (08:56→09:00)
[2018-09-29] MEDS: TOPIRAMATE 100 MG TABLET PO SCH ×4 (08:56→16:51)
[2018-09-29] MEDS: MULTIVITAMINS WITH MINERALS, THERAPEUTIC TABLET PO SCH ×2 (09:00→09:02)
[2018-09-29 11:24] LABS: GLUCOMETER DEV NAME(LOC) BV2X.; GLUCOSE,POINT OF CARE 72 MG/DL (70-110)
[2018-09-29 13:09] LABS: GLUCOMETER DEV NAME(LOC) BV2X.; GLUCOSE,POINT OF CARE 69 MG/DL (70-110)
[2018-09-29 13:39] LABS: GLUCOMETER DEV NAME(LOC) BV2X.; GLUCOSE,POINT OF CARE 99 MG/DL (70-110)
[2018-09-29 16:54] LABS: GLUCOMETER DEV NAME(LOC) BV2X.; GLUCOSE,POINT OF CARE 115 MG/DL (70-110)
[2018-09-29 17:15] VITALS: BP 124/76
[2018-09-29 21:19] LABS: GLUCOMETER DEV NAME(LOC) BV2X.; GLUCOSE,POINT OF CARE 158 MG/DL (70-110)
[2018-09-29] MEDS: INSULIN LISPRO 100 UNITS/ML SQ PRN (22:01)
[2018-09-30] MEDS: LEVOTHYROXINE SODIUM 75 MCG TABLET PO SCH (06:30)
[2018-09-30] MEDS: MetFORMIN HCL 500 MG TABLET PO SCH ×2 (07:00→17:28)
[2018-09-30] MEDS: FERROUS SULFATE 325 MG EC TABLET PO SCH ×2 (07:00→17:28)
[2018-09-30 07:40] LABS: GLUCOMETER DEV NAME(LOC) BV2X.; GLUCOSE,POINT OF CARE 118 MG/DL (70-110)
[2018-09-30 08:15] VITALS: BP 104/55
[2018-09-30] MEDS: MAGNESIUM OXIDE 400 MG TABLET PO SCH ×2 (08:38→17:28)
[2018-09-30] MEDS: MULTIVITAMINS WITH MINERALS, THERAPEUTIC TABLET PO SCH (08:38)
[2018-09-30] MEDS: SIMVASTATIN 20 MG TABLET PO SCH (08:39)
[2018-09-30] MEDS: TOPIRAMATE 100 MG TABLET PO SCH ×3 (08:39→17:28)
[2018-09-30] MEDS: DIVALPROEX SODIUM 500 MG DR TABLET PO SCH ×2 (08:39→17:28)
[2018-09-30] MEDS: FLUoxetine HCL 20 MG CAPSULE PO SCH (08:39)
[2018-09-30] MEDS: ASPIRIN 81 MG CHEWABLE TABLET PO SCH (08:39)
[2018-09-30] MEDS: QUEtiapine FUMARATE 200 MG TABLET PO SCH ×2 (08:39→22:06)
[2018-09-30] MEDS: LORATADINE 10 MG TABLET PO SCH (08:39)
[2018-09-30] MEDS: ASCORBIC ACID 500 MG TABLET PO SCH (08:40)
[2018-09-30] MEDS: OXYBUTYNIN CHLORIDE 5 MG ER TABLET PO SCH (08:40)
[2018-09-30] MEDS: LevETIRAcetam 250 MG TABLET PO SCH ×2 (08:40→17:29)
[2018-09-30] MEDS: BENAZEPRIL HCL 5 MG TABLET PO SCH (08:40)
[2018-09-30 11:19] LABS: GLUCOMETER DEV NAME(LOC) BV2X.; GLUCOSE,POINT OF CARE 135 MG/DL (70-110)
[2018-09-30] MEDS: INSULIN LISPRO 100 UNITS/ML SQ PRN (20:48)
[2018-09-30 20:49] LABS: GLUCOMETER DEV NAME(LOC) BV2X.; GLUCOSE,POINT OF CARE 146 MG/DL (70-110)
[2018-09-30 20:49] LABS: GLUCOMETER DEV NAME(LOC) BV2X.; GLUCOSE,POINT OF CARE 123 MG/DL (70-110)
[2018-10-01 03:30] VITALS: BP_SYST 117; BP_SYST 96; BP_DIAS 63; BP_DIAS 73
[2018-10-01] MEDS: HALOPERIDOL 5 MG TABLET PO PRN (04:34)
[2018-10-01] MEDS: LEVOTHYROXINE SODIUM 75 MCG TABLET PO SCH (06:30)
[2018-10-01] MEDS: FERROUS SULFATE 325 MG EC TABLET PO SCH ×3 (06:55→17:00)
[2018-10-01] MEDS: MetFORMIN HCL 500 MG TABLET PO SCH ×3 (06:55→17:00)
[2018-10-01] MEDS: DIVALPROEX SODIUM 500 MG DR TABLET PO SCH ×3 (08:30→17:00)
[2018-10-01] MEDS: ASPIRIN 81 MG CHEWABLE TABLET PO SCH (08:30)
[2018-10-01] MEDS: FLUoxetine HCL 20 MG CAPSULE PO SCH (08:30)
[2018-10-01] MEDS: MAGNESIUM OXIDE 400 MG TABLET PO SCH ×3 (08:30→17:00)
[2018-10-01] MEDS: TOPIRAMATE 100 MG TABLET PO SCH ×5 (08:30→17:00)
[2018-10-01] MEDS: MULTIVITAMINS WITH MINERALS, THERAPEUTIC TABLET PO SCH (08:30)
[2018-10-01] MEDS: QUEtiapine FUMARATE 200 MG TABLET PO SCH ×2 (08:30→20:02)
[2018-10-01] MEDS: SIMVASTATIN 20 MG TABLET PO SCH (08:30)
[2018-10-01] MEDS: OXYBUTYNIN CHLORIDE 5 MG ER TABLET PO SCH (08:31)
[2018-10-01] MEDS: ASCORBIC ACID 500 MG TABLET PO SCH (08:31)
[2018-10-01] MEDS: BENAZEPRIL HCL 5 MG TABLET PO SCH (08:31)
[2018-10-01] MEDS: LORATADINE 10 MG TABLET PO SCH (08:31)
[2018-10-01] MEDS: LevETIRAcetam 250 MG TABLET PO SCH ×3 (08:31→17:00)
[2018-10-01 11:04] LABS: GLUCOMETER DEV NAME(LOC) BV2X.; GLUCOSE,POINT OF CARE 90 MG/DL (70-110)
[2018-10-01 16:50] LABS: GLUCOMETER DEV NAME(LOC) BV2X.; GLUCOSE,POINT OF CARE 80 MG/DL (70-110)
[2018-10-01 17:53] VITALS: BP 100/63
[2018-10-01 18:05] VITALS: BP 124/80
[2018-10-01 21:19] LABS: GLUCOMETER DEV NAME(LOC) BV2X.; GLUCOSE,POINT OF CARE 155 MG/DL (70-110)
[2018-10-01] MEDS: INSULIN LISPRO 100 UNITS/ML SQ PRN (21:20)
[2018-10-02] MEDS: HALOPERIDOL 5 MG TABLET PO PRN ×2 (00:23→08:45)
[2018-10-02] MEDS: FERROUS SULFATE 325 MG EC TABLET PO SCH ×2 (07:00→17:43)
[2018-10-02] MEDS: LEVOTHYROXINE SODIUM 75 MCG TABLET PO SCH (07:00)
[2018-10-02] MEDS: MetFORMIN HCL 500 MG TABLET PO SCH ×2 (07:01→17:43)
[2018-10-02 07:19] LABS: GLUCOMETER DEV NAME(LOC) BV3S.; GLUCOSE,POINT OF CARE 79 MG/DL (70-110)
[2018-10-02 08:07] VITALS: BP 122/72
[2018-10-02] MEDS: MULTIVITAMINS WITH MINERALS, THERAPEUTIC TABLET PO SCH (08:10)
[2018-10-02] MEDS: LORATADINE 10 MG TABLET PO SCH (08:10)
[2018-10-02] MEDS: DIVALPROEX SODIUM 500 MG DR TABLET PO SCH ×2 (08:10→17:43)
[2018-10-02] MEDS: ASPIRIN 81 MG CHEWABLE TABLET PO SCH (08:10)
[2018-10-02] MEDS: MAGNESIUM OXIDE 400 MG TABLET PO SCH ×2 (08:10→17:42)
[2018-10-02] MEDS: BENAZEPRIL HCL 5 MG TABLET PO SCH (08:11)
[2018-10-02] MEDS: SIMVASTATIN 20 MG TABLET PO SCH (08:11)
[2018-10-02] MEDS: OXYBUTYNIN CHLORIDE 5 MG ER TABLET PO SCH (08:11)
[2018-10-02] MEDS: TOPIRAMATE 100 MG TABLET PO SCH ×3 (08:11→17:43)
[2018-10-02] MEDS: FLUoxetine HCL 20 MG CAPSULE PO SCH (08:11)
[2018-10-02] MEDS: LevETIRAcetam 250 MG TABLET PO SCH ×2 (08:11→17:43)
[2018-10-02] MEDS: ASCORBIC ACID 500 MG TABLET PO SCH (08:11)
[2018-10-02] MEDS: QUEtiapine FUMARATE 200 MG TABLET PO SCH ×2 (08:13→20:59)
[2018-10-02 12:19] LABS: GLUCOMETER DEV NAME(LOC) BV3S.; GLUCOSE,POINT OF CARE 111 MG/DL (70-110)
[2018-10-02] MEDS ORDERED: HALOPERIDOL LACTATE 5 MG/ML VIAL IM ONE (12:30)
[2018-10-02] MEDS ORDERED: LORazepam 2 MG/ML VIAL IM ONE (12:30)
[2018-10-02] MEDS ORDERED: DiphenhydrAMINE HCL 50 MG/ML VIAL IM ONE (12:30)
[2018-10-02 13:30] VITALS: BP 92/60
[2018-10-02 17:09] LABS: GLUCOMETER DEV NAME(LOC) BV3S.; GLUCOSE,POINT OF CARE 77 MG/DL (70-110)
[2018-10-02 17:51] VITALS: BP 93/50
[2018-10-02 19:40] VITALS: BP 104/66
[2018-10-02 21:32] LABS: GLUCOMETER DEV NAME(LOC) BV3S.; GLUCOSE,POINT OF CARE 125 MG/DL (70-110)
[2018-10-03 05:53] VITALS: BP 119/78
[2018-10-03 06:24] LABS: GLUCOMETER DEV NAME(LOC) BV3S.; GLUCOSE,POINT OF CARE 92 MG/DL (70-110)
[2018-10-03] MEDS: LEVOTHYROXINE SODIUM 75 MCG TABLET PO SCH (06:45)
[2018-10-03] MEDS: MetFORMIN HCL 500 MG TABLET PO SCH ×3 (06:46→21:40)
[2018-10-03] MEDS: FERROUS SULFATE 325 MG EC TABLET PO SCH ×3 (06:46→21:40)
[2018-10-03 08:05] VITALS: BP 132/65
[2018-10-03] MEDS: FLUoxetine HCL 20 MG CAPSULE PO SCH (09:42)
[2018-10-03] MEDS: LevETIRAcetam 250 MG TABLET PO SCH ×3 (09:42→21:40)
[2018-10-03] MEDS: SIMVASTATIN 20 MG TABLET PO SCH (09:42)
[2018-10-03] MEDS: OXYBUTYNIN CHLORIDE 5 MG ER TABLET PO SCH (09:43)
[2018-10-03] MEDS: BENAZEPRIL HCL 5 MG TABLET PO SCH (09:43)
[2018-10-03] MEDS: DIVALPROEX SODIUM 500 MG DR TABLET PO SCH ×3 (09:43→21:40)
[2018-10-03] MEDS: LORATADINE 10 MG TABLET PO SCH (09:43)
[2018-10-03] MEDS: MAGNESIUM OXIDE 400 MG TABLET PO SCH ×3 (09:43→21:40)
[2018-10-03] MEDS: MULTIVITAMINS WITH MINERALS, THERAPEUTIC TABLET PO SCH (09:43)
[2018-10-03] MEDS: ASPIRIN 81 MG CHEWABLE TABLET PO SCH (09:43)
[2018-10-03] MEDS: TOPIRAMATE 100 MG TABLET PO SCH ×4 (09:43→21:39)
[2018-10-03] MEDS: QUEtiapine FUMARATE 200 MG TABLET PO SCH ×2 (09:43→21:51)
[2018-10-03] MEDS: ASCORBIC ACID 500 MG TABLET PO SCH (09:43)
[2018-10-03 11:40] LABS: GLUCOMETER DEV NAME(LOC) BV3S.; GLUCOSE,POINT OF CARE 124 MG/DL (70-110)
[2018-10-03] MEDS: HALOPERIDOL 5 MG TABLET PO PRN (13:03)
[2018-10-03 17:20] LABS: GLUCOMETER DEV NAME(LOC) BV3S.; GLUCOSE,POINT OF CARE 109 MG/DL (70-110)
[2018-10-03 22:07] VITALS: BP 114/80
[2018-10-04] MEDS: HALOPERIDOL 5 MG TABLET PO PRN ×2 (00:03→09:22)
[2018-10-04 00:13] VITALS: BP 132/96
[2018-10-04 06:14] LABS: GLUCOMETER DEV NAME(LOC) BV3S.; GLUCOSE,POINT OF CARE 119 MG/DL (70-110)
[2018-10-04] MEDS: FERROUS SULFATE 325 MG EC TABLET PO SCH ×2 (06:59→16:01)
[2018-10-04] MEDS: LEVOTHYROXINE SODIUM 75 MCG TABLET PO SCH (06:59)
[2018-10-04] MEDS: MetFORMIN HCL 500 MG TABLET PO SCH ×2 (06:59→17:09)
[2018-10-04] MEDS: ASCORBIC ACID 500 MG TABLET PO SCH (09:07)
[2018-10-04] MEDS: FLUoxetine HCL 20 MG CAPSULE PO SCH (09:07)
[2018-10-04] MEDS: LevETIRAcetam 250 MG TABLET PO SCH ×2 (09:07→16:02)
[2018-10-04] MEDS: OXYBUTYNIN CHLORIDE 5 MG ER TABLET PO SCH (09:07)
[2018-10-04] MEDS: BENAZEPRIL HCL 5 MG TABLET PO SCH (09:07)
[2018-10-04] MEDS: MULTIVITAMINS WITH MINERALS, THERAPEUTIC TABLET PO SCH (09:08)
[2018-10-04] MEDS: MAGNESIUM OXIDE 400 MG TABLET PO SCH ×2 (09:08→16:01)
[2018-10-04] MEDS: SIMVASTATIN 20 MG TABLET PO SCH (09:08)
[2018-10-04] MEDS: LORATADINE 10 MG TABLET PO SCH (09:08)
[2018-10-04] MEDS: DIVALPROEX SODIUM 500 MG DR TABLET PO SCH ×2 (09:08→16:01)
[2018-10-04] MEDS: TOPIRAMATE 100 MG TABLET PO SCH ×3 (09:08→16:01)
[2018-10-04] MEDS: QUEtiapine FUMARATE 200 MG TABLET PO SCH ×2 (09:08→20:35)
[2018-10-04] MEDS: CHLORHEXIDINE GLUCONATE 4% 118 ML TOPICAL LIQUID TP SCH (09:08)
[2018-10-04] MEDS: ASPIRIN 81 MG CHEWABLE TABLET PO SCH (09:08)
[2018-10-04] MEDS ORDERED: LORazepam 2 MG/ML VIAL ONE (09:32)
[2018-10-04] MEDS ORDERED: HALOPERIDOL LACTATE 5 MG/ML VIAL ONE (09:32)
[2018-10-04] MEDS ORDERED: DiphenhydrAMINE HCL 50 MG/ML VIAL ONE (09:33)
[2018-10-04 09:40] VITALS: BP 157/100
[2018-10-04] MEDS ORDERED: LORazepam 2 MG/ML VIAL IM ONE (09:45)
[2018-10-04] MEDS ORDERED: HALOPERIDOL LACTATE 5 MG/ML VIAL IM ONE (09:45)
[2018-10-04] MEDS ORDERED: DiphenhydrAMINE HCL 50 MG/ML VIAL IM ONE (09:45)
[2018-10-04 10:14] VITALS: BP 148/87
[2018-10-04 11:15] LABS: GLUCOMETER DEV NAME(LOC) BV3S.; GLUCOSE,POINT OF CARE 122 MG/DL (70-110)
[2018-10-04] MEDS: INSULIN LISPRO 100 UNITS/ML SQ PRN (17:16)
[2018-10-04 17:35] LABS: GLUCOMETER DEV NAME(LOC) BV3S.; GLUCOSE,POINT OF CARE 161 MG/DL (70-110)
[2018-10-04 19:54] VITALS: BP 136/93
[2018-10-04 22:26] LABS: GLUCOMETER DEV NAME(LOC) BV3S.; GLUCOSE,POINT OF CARE 88 MG/DL (70-110)
[2018-10-04 22:26] LABS: GLUCOMETER DEV NAME(LOC) BV3S.; GLUCOSE,POINT OF CARE 62 MG/DL (70-110)
[2018-10-05 05:48] VITALS: BP 109/51
[2018-10-05 06:24] LABS: GLUCOMETER DEV NAME(LOC) BV3S.; GLUCOSE,POINT OF CARE 100 MG/DL (70-110)
[2018-10-05] MEDS: LEVOTHYROXINE SODIUM 75 MCG TABLET PO SCH (06:47)
[2018-10-05] MEDS: MetFORMIN HCL 500 MG TABLET PO SCH ×2 (06:47→16:56)
[2018-10-05] MEDS: FERROUS SULFATE 325 MG EC TABLET PO SCH ×2 (06:47→16:37)
[2018-10-05 08:00] VITALS: BP 111/87
[2018-10-05] MEDS: LevETIRAcetam 250 MG TABLET PO SCH ×2 (08:36→16:37)
[2018-10-05] MEDS: OXYBUTYNIN CHLORIDE 5 MG ER TABLET PO SCH (08:36)
[2018-10-05] MEDS: BENAZEPRIL HCL 5 MG TABLET PO SCH (08:36)
[2018-10-05] MEDS: ASCORBIC ACID 500 MG TABLET PO SCH (08:36)
[2018-10-05] MEDS: FLUoxetine HCL 20 MG CAPSULE PO SCH (08:37)
[2018-10-05] MEDS: TOPIRAMATE 100 MG TABLET PO SCH ×3 (08:37→16:37)
[2018-10-05] MEDS: ASPIRIN 81 MG CHEWABLE TABLET PO SCH (08:37)
[2018-10-05] MEDS: QUEtiapine FUMARATE 200 MG TABLET PO SCH ×2 (08:37→22:01)
[2018-10-05] MEDS: SIMVASTATIN 20 MG TABLET PO SCH (08:37)
[2018-10-05] MEDS: MULTIVITAMINS WITH MINERALS, THERAPEUTIC TABLET PO SCH (08:37)
[2018-10-05] MEDS: LORATADINE 10 MG TABLET PO SCH (08:37)
[2018-10-05] MEDS: MAGNESIUM OXIDE 400 MG TABLET PO SCH ×2 (08:39→16:37)
[2018-10-05] MEDS: DIVALPROEX SODIUM 500 MG DR TABLET PO SCH ×2 (08:39→16:37)
[2018-10-05] MEDS: HALOPERIDOL 5 MG TABLET PO PRN (08:47)
[2018-10-05 08:54] LABS: ALANINE AMINOTRANSFERASE 93 U/L (12-78); ALBUMIN 2.5 g/dL (3.4-5.0); ALKALINE PHOSPHATASE 72 U/L (46-116); ANION GAP 10 mmol/L (8-16); ASPARTATE AMINOTRANSFERASE 40 U/L (15-37); BILIRUBIN,TOTAL 0.2 mg/dL (0.1-1.0); CALCIUM, TOTAL 9.1 mg/dL (8.8-10.5); CARBON DIOXIDE 24 mmol/L (22-29); CHLORIDE 109 mmol/L (98-107); CREATININE 0.72 mg/dL (0.60-1.30); GLOMERULAR FILTR. RATE CALC > 60 mL/min (>60); GLUCOSE,RANDOM 97 mg/dL (70-110); PHOSPHORUS 5.1 mg/dL (2.5-4.9); POTASSIUM 4.3 mmol/L (3.5-5.1); SODIUM SERUM 143 mmol/L (136-145); UREA NITROGEN, BLOOD 21 mg/dL (7-18)
[2018-10-05] MEDS: CHLORHEXIDINE GLUCONATE 4% 118 ML TOPICAL LIQUID TP SCH (09:43)
[2018-10-05 11:50] LABS: GLUCOMETER DEV NAME(LOC) BV3S.; GLUCOSE,POINT OF CARE 107 MG/DL (70-110)
[2018-10-05 16:16] VITALS: BP 105/66
[2018-10-05 16:55] LABS: GLUCOMETER DEV NAME(LOC) BV3S.; GLUCOSE,POINT OF CARE 98 MG/DL (70-110)
[2018-10-05 21:22] LABS: GLUCOMETER DEV NAME(LOC) BV3S.; GLUCOSE,POINT OF CARE 123 MG/DL (70-110)
[2018-10-06 05:48] VITALS: BP 120/80
[2018-10-06] MEDS: LEVOTHYROXINE SODIUM 75 MCG TABLET PO SCH (06:30)
[2018-10-06] MEDS: MetFORMIN HCL 500 MG TABLET PO SCH ×2 (06:53→16:20)
[2018-10-06] MEDS: FERROUS SULFATE 325 MG EC TABLET PO SCH ×2 (06:53→16:20)
[2018-10-06 08:26] VITALS: BP 143/74
[2018-10-06] MEDS: LORATADINE 10 MG TABLET PO SCH (08:41)
[2018-10-06] MEDS: LevETIRAcetam 250 MG TABLET PO SCH ×2 (08:41→16:21)
[2018-10-06] MEDS: OXYBUTYNIN CHLORIDE 5 MG ER TABLET PO SCH (08:41)
[2018-10-06] MEDS: ASCORBIC ACID 500 MG TABLET PO SCH (08:41)
[2018-10-06] MEDS: ASPIRIN 81 MG CHEWABLE TABLET PO SCH (08:42)
[2018-10-06] MEDS: MULTIVITAMINS WITH MINERALS, THERAPEUTIC TABLET PO SCH (08:42)
[2018-10-06] MEDS: MAGNESIUM OXIDE 400 MG TABLET PO SCH ×2 (08:42→16:21)
[2018-10-06] MEDS: BENAZEPRIL HCL 5 MG TABLET PO SCH (08:42)
[2018-10-06] MEDS: QUEtiapine FUMARATE 200 MG TABLET PO SCH ×2 (08:42→20:27)
[2018-10-06] MEDS: SIMVASTATIN 20 MG TABLET PO SCH (08:42)
[2018-10-06] MEDS: FLUoxetine HCL 20 MG CAPSULE PO SCH (08:42)
[2018-10-06] MEDS: TOPIRAMATE 100 MG TABLET PO SCH ×3 (08:42→16:21)
[2018-10-06] MEDS: DIVALPROEX SODIUM 500 MG DR TABLET PO SCH ×2 (08:42→16:20)
[2018-10-06] MEDS: CHLORHEXIDINE GLUCONATE 4% 118 ML TOPICAL LIQUID TP SCH (08:43)
[2018-10-06] MEDS: HALOPERIDOL 5 MG TABLET PO PRN ×2 (08:43→16:21)
[2018-10-06] MEDS ORDERED: TUBERCULIN, PURIFIED PROTEIN DERIVATIVE 5 TU/0.1 ML SYRINGE ID ONE (09:00)
[2018-10-06 11:15] LABS: GLUCOMETER DEV NAME(LOC) BV3S.; GLUCOSE,POINT OF CARE 148 MG/DL (70-110)
[2018-10-06 16:00] VITALS: BP 138/68
[2018-10-06 16:34] LABS: GLUCOMETER DEV NAME(LOC) BV3S.; GLUCOSE,POINT OF CARE 105 MG/DL (70-110)
[2018-10-06 21:25] LABS: GLUCOMETER DEV NAME(LOC) BV3S.; GLUCOSE,POINT OF CARE 99 MG/DL (70-110)
[2018-10-07 00:28] VITALS: BP 110/58
[2018-10-07 06:44] LABS: GLUCOMETER DEV NAME(LOC) BV3S.; GLUCOSE,POINT OF CARE 90 MG/DL (70-110)
[2018-10-07] MEDS: MetFORMIN HCL 500 MG TABLET PO SCH ×2 (06:58→16:22)
[2018-10-07] MEDS: FERROUS SULFATE 325 MG EC TABLET PO SCH ×2 (06:58→16:22)
[2018-10-07] MEDS: LEVOTHYROXINE SODIUM 75 MCG TABLET PO SCH (06:58)
[2018-10-07 08:00] VITALS: BP 106/68
[2018-10-07 08:47] LABS: BASOPHILS % (AUTO) 0.2 % (0.0-2.0); EOSINOPHILS % (AUTO) 0.6 % (1.0-6.0); HEMATOCRIT 39.4 % (36-46); HEMOGLOBIN 12.9 g/dL (12.0-16.0); LYMPHOCYTES # (AUTO) 2.6 K/uL (1.0-4.8); LYMPHOCYTES % (AUTO) 45.6 % (22.0-44.0); MEAN CORPUSCULAR HEMOGLOBIN 33.6 pg (26.0-34.0); MEAN CORPUSCULAR HGB CONC 32.7 G/dL (31.0-37.0); MEAN CORPUSCULAR VOLUME 103 fL (80-100); MONOCYTES # (AUTO) 0.6 K/uL (0.1-1.0); MONOCYTES % (AUTO) 10.9 % (2.0-9.0); NEUTROPHILS # (AUTO) 2.4 K/uL (1.8-7.7); NEUTROPHILS % (AUTO) 42.7 % (40.0-70.0); PLATELET COUNT (AUTO) 188 K/uL (150-450); RED BLOOD CELL COUNT(AUTO) 3.83 MIL/uL (4.00-5.20); RED CELL DISTRIBUTION WIDTH 15.1 % (11.5-14.5)
[2018-10-07 09:35] LABS: GLUCOMETER DEV NAME(LOC) BV3S.; GLUCOSE,POINT OF CARE 74 MG/DL (70-110)
[2018-10-07] MEDS: LORATADINE 10 MG TABLET PO SCH (09:39)
[2018-10-07] MEDS: MULTIVITAMINS WITH MINERALS, THERAPEUTIC TABLET PO SCH (09:39)
[2018-10-07] MEDS: LevETIRAcetam 250 MG TABLET PO SCH ×2 (09:39→16:22)
[2018-10-07] MEDS: QUEtiapine FUMARATE 200 MG TABLET PO SCH ×2 (09:39→22:55)
[2018-10-07] MEDS: ASCORBIC ACID 500 MG TABLET PO SCH (09:40)
[2018-10-07] MEDS: OXYBUTYNIN CHLORIDE 5 MG ER TABLET PO SCH (09:40)
[2018-10-07] MEDS: FLUoxetine HCL 20 MG CAPSULE PO SCH (09:40)
[2018-10-07] MEDS: BENAZEPRIL HCL 5 MG TABLET PO SCH (09:40)
[2018-10-07] MEDS: DIVALPROEX SODIUM 500 MG DR TABLET PO SCH ×2 (09:40→16:21)
[2018-10-07] MEDS: ASPIRIN 81 MG CHEWABLE TABLET PO SCH (09:40)
[2018-10-07] MEDS: TOPIRAMATE 100 MG TABLET PO SCH ×3 (09:40→16:21)
[2018-10-07] MEDS: MAGNESIUM OXIDE 400 MG TABLET PO SCH ×2 (09:40→16:22)
[2018-10-07] MEDS: CHLORHEXIDINE GLUCONATE 4% 118 ML TOPICAL LIQUID TP SCH (09:41)
[2018-10-07] MEDS: SIMVASTATIN 20 MG TABLET PO SCH (09:41)
[2018-10-07] MEDS: HALOPERIDOL 5 MG TABLET PO PRN (13:12)
[2018-10-07 16:00] VITALS: BP 122/87
[2018-10-07 17:10] LABS: GLUCOMETER DEV NAME(LOC) BV3S.; GLUCOSE,POINT OF CARE 97 MG/DL (70-110)
[2018-10-08] VITALS: BP 101/61
[2018-10-08] MEDS: HALOPERIDOL 5 MG TABLET PO PRN ×2 (01:58→13:06)
[2018-10-08] MEDS: MetFORMIN HCL 500 MG TABLET PO SCH ×2 (06:56→21:41)
[2018-10-08] MEDS: LEVOTHYROXINE SODIUM 75 MCG TABLET PO SCH (06:56)
[2018-10-08] MEDS: FERROUS SULFATE 325 MG EC TABLET PO SCH ×2 (06:56→21:42)
[2018-10-08 07:05] LABS: GLUCOMETER DEV NAME(LOC) BV3S.; GLUCOSE,POINT OF CARE 111 MG/DL (70-110)
[2018-10-08 08:07] VITALS: BP 106/60
[2018-10-08] MEDS: OXYBUTYNIN CHLORIDE 5 MG ER TABLET PO SCH (08:52)
[2018-10-08] MEDS: DIVALPROEX SODIUM 500 MG DR TABLET PO SCH ×2 (08:52→21:48)
[2018-10-08] MEDS: LORATADINE 10 MG TABLET PO SCH (08:52)
[2018-10-08] MEDS: QUEtiapine FUMARATE 200 MG TABLET PO SCH ×2 (08:52→22:59)
[2018-10-08] MEDS: FLUoxetine HCL 20 MG CAPSULE PO SCH (08:52)
[2018-10-08] MEDS: ASPIRIN 81 MG CHEWABLE TABLET PO SCH (08:52)
[2018-10-08] MEDS: SIMVASTATIN 20 MG TABLET PO SCH (08:53)
[2018-10-08] MEDS: ASCORBIC ACID 500 MG TABLET PO SCH (08:53)
[2018-10-08] MEDS: BENAZEPRIL HCL 5 MG TABLET PO SCH (08:53)
[2018-10-08] MEDS: CHLORHEXIDINE GLUCONATE 4% 118 ML TOPICAL LIQUID TP SCH (08:53)
[2018-10-08] MEDS: TOPIRAMATE 100 MG TABLET PO SCH ×3 (08:53→21:49)
[2018-10-08] MEDS: LevETIRAcetam 250 MG TABLET PO SCH ×2 (08:53→21:41)
[2018-10-08] MEDS: MAGNESIUM OXIDE 400 MG TABLET PO SCH ×2 (08:53→21:42)
[2018-10-08] MEDS: MULTIVITAMINS WITH MINERALS, THERAPEUTIC TABLET PO SCH (08:53)
[2018-10-08 16:01] VITALS: BP 103/60
[2018-10-08 16:45] LABS: GLUCOMETER DEV NAME(LOC) BV3S.; GLUCOSE,POINT OF CARE 151 MG/DL (70-110)
[2018-10-08] MEDS: SILVER 45 ML GEL TP SCH (21:49)
[2018-10-09 02:23] VITALS: BP 100/57
[2018-10-09 06:30] LABS: GLUCOMETER DEV NAME(LOC) BV3S.; GLUCOSE,POINT OF CARE 152 MG/DL (70-110)
[2018-10-09] MEDS: FERROUS SULFATE 325 MG EC TABLET PO SCH ×2 (06:49→18:07)
[2018-10-09] MEDS: MetFORMIN HCL 500 MG TABLET PO SCH ×2 (06:49→18:07)
[2018-10-09] MEDS: LEVOTHYROXINE SODIUM 75 MCG TABLET PO SCH (06:49)
[2018-10-09] MEDS: INSULIN LISPRO 100 UNITS/ML SQ PRN (07:22)
[2018-10-09] MEDS: MAGNESIUM OXIDE 400 MG TABLET PO SCH ×2 (09:42→18:08)
[2018-10-09] MEDS: OXYBUTYNIN CHLORIDE 5 MG ER TABLET PO SCH (09:42)
[2018-10-09] MEDS: MULTIVITAMINS WITH MINERALS, THERAPEUTIC TABLET PO SCH (09:43)
[2018-10-09] MEDS: ASPIRIN 81 MG CHEWABLE TABLET PO SCH (09:43)
[2018-10-09] MEDS: FLUoxetine HCL 20 MG CAPSULE PO SCH (09:43)
[2018-10-09] MEDS: TOPIRAMATE 100 MG TABLET PO SCH ×3 (09:43→18:07)
[2018-10-09] MEDS: SIMVASTATIN 20 MG TABLET PO SCH (09:43)
[2018-10-09] MEDS: QUEtiapine FUMARATE 200 MG TABLET PO SCH ×2 (09:44→20:38)
[2018-10-09] MEDS: SILVER 45 ML GEL TP SCH (09:44)
[2018-10-09] MEDS: ASCORBIC ACID 500 MG TABLET PO SCH (09:44)
[2018-10-09] MEDS: BENAZEPRIL HCL 5 MG TABLET PO SCH (09:44)
[2018-10-09] MEDS: DIVALPROEX SODIUM 500 MG DR TABLET PO SCH ×2 (09:44→18:08)
[2018-10-09] MEDS: LevETIRAcetam 250 MG TABLET PO SCH ×2 (09:44→18:10)
[2018-10-09] MEDS: LORATADINE 10 MG TABLET PO SCH (09:44)
[2018-10-09] MEDS: CHLORHEXIDINE GLUCONATE 4% 118 ML TOPICAL LIQUID TP SCH (09:44)
[2018-10-09 09:52] VITALS: BP 107/72
[2018-10-09] MEDS: HALOPERIDOL 5 MG TABLET PO PRN (12:37)
[2018-10-09 17:55] LABS: GLUCOMETER DEV NAME(LOC) BV3S.; GLUCOSE,POINT OF CARE 75 MG/DL (70-110)
[2018-10-09 18:19] VITALS: BP 102/66
[2018-10-10 06:30] VITALS: BP 110/78
[2018-10-10 06:30] LABS: GLUCOMETER DEV NAME(LOC) BV3S.; GLUCOSE,POINT OF CARE 73 MG/DL (70-110)
[2018-10-10] MEDS: MetFORMIN HCL 500 MG TABLET PO SCH ×2 (06:48→17:56)
[2018-10-10] MEDS: FERROUS SULFATE 325 MG EC TABLET PO SCH ×2 (06:48→17:56)
[2018-10-10] MEDS: LEVOTHYROXINE SODIUM 75 MCG TABLET PO SCH (06:48)
[2018-10-10] MEDS: LORATADINE 10 MG TABLET PO SCH (08:10)
[2018-10-10] MEDS: FLUoxetine HCL 20 MG CAPSULE PO SCH (08:10)
[2018-10-10] MEDS: DIVALPROEX SODIUM 500 MG DR TABLET PO SCH ×2 (08:10→17:56)
[2018-10-10] MEDS: LevETIRAcetam 250 MG TABLET PO SCH ×2 (08:10→17:56)
[2018-10-10] MEDS: MULTIVITAMINS WITH MINERALS, THERAPEUTIC TABLET PO SCH (08:10)
[2018-10-10] MEDS: QUEtiapine FUMARATE 200 MG TABLET PO SCH ×2 (08:10→20:05)
[2018-10-10] MEDS: OXYBUTYNIN CHLORIDE 5 MG ER TABLET PO SCH (08:10)
[2018-10-10] MEDS: ASPIRIN 81 MG CHEWABLE TABLET PO SCH (08:10)
[2018-10-10] MEDS: ASCORBIC ACID 500 MG TABLET PO SCH (08:10)
[2018-10-10] MEDS: BENAZEPRIL HCL 5 MG TABLET PO SCH (08:10)
[2018-10-10] MEDS: TOPIRAMATE 100 MG TABLET PO SCH ×3 (08:11→17:56)
[2018-10-10] MEDS: MAGNESIUM OXIDE 400 MG TABLET PO SCH ×2 (08:11→17:56)
[2018-10-10] MEDS: SIMVASTATIN 20 MG TABLET PO SCH (08:11)
[2018-10-10] MEDS: HALOPERIDOL 5 MG TABLET PO PRN (08:56)
[2018-10-10] MEDS: CHLORHEXIDINE GLUCONATE 4% 118 ML TOPICAL LIQUID TP SCH (09:59)
[2018-10-10] MEDS: SILVER 45 ML GEL TP SCH (09:59)
[2018-10-10 16:39] LABS: GLUCOMETER DEV NAME(LOC) BV3S.; GLUCOSE,POINT OF CARE 100 MG/DL (70-110)
[2018-10-10 18:35] VITALS: BP 114/70
[2018-10-11 03:37] VITALS: BP 94/44
[2018-10-11 03:46] VITALS: BP 101/58
[2018-10-11] MEDS: HALOPERIDOL 5 MG TABLET PO PRN (04:12)
[2018-10-11] MEDS: LEVOTHYROXINE SODIUM 75 MCG TABLET PO SCH (06:30)
[2018-10-11] MEDS: FERROUS SULFATE 325 MG EC TABLET PO SCH ×2 (06:54→17:10)
[2018-10-11] MEDS: MetFORMIN HCL 500 MG TABLET PO SCH ×2 (06:54→17:11)
[2018-10-11 08:19] VITALS: BP 101/65
[2018-10-11] MEDS: FLUoxetine HCL 20 MG CAPSULE PO SCH (08:32)
[2018-10-11] MEDS: TOPIRAMATE 100 MG TABLET PO SCH ×3 (08:33→17:10)
[2018-10-11] MEDS: MAGNESIUM OXIDE 400 MG TABLET PO SCH ×2 (08:33→17:10)
[2018-10-11] MEDS: SIMVASTATIN 20 MG TABLET PO SCH (08:33)
[2018-10-11] MEDS: LORATADINE 10 MG TABLET PO SCH (08:33)
[2018-10-11] MEDS: ASPIRIN 81 MG CHEWABLE TABLET PO SCH (08:33)
[2018-10-11] MEDS: ASCORBIC ACID 500 MG TABLET PO SCH (08:33)
[2018-10-11] MEDS: DIVALPROEX SODIUM 500 MG DR TABLET PO SCH ×2 (08:33→17:10)
[2018-10-11] MEDS: BENAZEPRIL HCL 5 MG TABLET PO SCH (08:34)
[2018-10-11] MEDS: OXYBUTYNIN CHLORIDE 5 MG ER TABLET PO SCH (08:34)
[2018-10-11] MEDS: LevETIRAcetam 250 MG TABLET PO SCH ×2 (08:34→17:11)
[2018-10-11] MEDS: MULTIVITAMINS WITH MINERALS, THERAPEUTIC TABLET PO SCH (08:37)
[2018-10-11] MEDS: QUEtiapine FUMARATE 200 MG TABLET PO SCH ×2 (08:37→20:19)
[2018-10-11] MEDS: CHLORHEXIDINE GLUCONATE 4% 118 ML TOPICAL LIQUID TP SCH (09:49)
[2018-10-11] MEDS: SILVER 45 ML GEL TP SCH (09:49)
[2018-10-11 16:00] VITALS: BP 109/76
[2018-10-11 16:29] LABS: GLUCOMETER DEV NAME(LOC) BV3S.; GLUCOSE,POINT OF CARE 93 MG/DL (70-110)
[2018-10-12 06:34] LABS: GLUCOMETER DEV NAME(LOC) BV3S.; GLUCOSE,POINT OF CARE 90 MG/DL (70-110)
[2018-10-12] MEDS: LEVOTHYROXINE SODIUM 75 MCG TABLET PO SCH (06:40)
[2018-10-12] MEDS: MetFORMIN HCL 500 MG TABLET PO SCH ×2 (06:40→18:00)
[2018-10-12] MEDS: FERROUS SULFATE 325 MG EC TABLET PO SCH ×2 (06:40→18:00)
[2018-10-12 06:58] VITALS: BP 107/72
[2018-10-12] MEDS: LORATADINE 10 MG TABLET PO SCH (08:41)
[2018-10-12] MEDS: DIVALPROEX SODIUM 500 MG DR TABLET PO SCH ×2 (08:41→18:00)
[2018-10-12] MEDS: SIMVASTATIN 20 MG TABLET PO SCH (08:41)
[2018-10-12] MEDS: BENAZEPRIL HCL 5 MG TABLET PO SCH (08:41)
[2018-10-12] MEDS: ASPIRIN 81 MG CHEWABLE TABLET PO SCH (08:41)
[2018-10-12] MEDS: TOPIRAMATE 100 MG TABLET PO SCH ×3 (08:41→18:00)
[2018-10-12] MEDS: MULTIVITAMINS WITH MINERALS, THERAPEUTIC TABLET PO SCH (08:41)
[2018-10-12] MEDS: QUEtiapine FUMARATE 200 MG TABLET PO SCH ×2 (08:41→21:45)
[2018-10-12] MEDS: MAGNESIUM OXIDE 400 MG TABLET PO SCH ×2 (08:42→18:00)
[2018-10-12] MEDS: LevETIRAcetam 250 MG TABLET PO SCH ×2 (08:42→18:00)
[2018-10-12] MEDS: HALOPERIDOL 5 MG TABLET PO PRN (08:42)
[2018-10-12] MEDS: ASCORBIC ACID 500 MG TABLET PO SCH (08:42)
[2018-10-12] MEDS: OXYBUTYNIN CHLORIDE 5 MG ER TABLET PO SCH (08:42)
[2018-10-12] MEDS: FLUoxetine HCL 20 MG CAPSULE PO SCH (08:42)
[2018-10-12] MEDS: CHLORHEXIDINE GLUCONATE 4% 118 ML TOPICAL LIQUID TP SCH (08:43)
[2018-10-12] MEDS: SILVER 45 ML GEL TP SCH (08:43)
[2018-10-12 12:42] VITALS: BP 105/66
[2018-10-12 17:00] LABS: GLUCOMETER DEV NAME(LOC) BV3S.; GLUCOSE,POINT OF CARE 136 MG/DL (70-110)
[2018-10-12 20:03] VITALS: BP 113/62
[2018-10-13] MEDS: MetFORMIN HCL 500 MG TABLET PO SCH ×2 (06:24→17:08)
[2018-10-13] MEDS: FERROUS SULFATE 325 MG EC TABLET PO SCH ×2 (06:24→17:08)
[2018-10-13] MEDS: LEVOTHYROXINE SODIUM 75 MCG TABLET PO SCH (06:37)
[2018-10-13] MEDS: CHLORHEXIDINE GLUCONATE 4% 118 ML TOPICAL LIQUID TP SCH (09:47)
[2018-10-13] MEDS: SILVER 45 ML GEL TP SCH (09:48)
[2018-10-13] MEDS: ASCORBIC ACID 500 MG TABLET PO SCH (10:17)
[2018-10-13] MEDS: FLUoxetine HCL 20 MG CAPSULE PO SCH (10:17)
[2018-10-13] MEDS: OXYBUTYNIN CHLORIDE 5 MG ER TABLET PO SCH (10:17)
[2018-10-13] MEDS: QUEtiapine FUMARATE 200 MG TABLET PO SCH ×2 (10:17→20:31)
[2018-10-13] MEDS: DIVALPROEX SODIUM 500 MG DR TABLET PO SCH ×2 (10:17→17:08)
[2018-10-13] MEDS: MULTIVITAMINS WITH MINERALS, THERAPEUTIC TABLET PO SCH (10:17)
[2018-10-13] MEDS: LORATADINE 10 MG TABLET PO SCH (10:17)
[2018-10-13] MEDS: MAGNESIUM OXIDE 400 MG TABLET PO SCH ×2 (10:17→17:08)
[2018-10-13] MEDS: TOPIRAMATE 100 MG TABLET PO SCH ×3 (10:17→17:08)
[2018-10-13] MEDS: SIMVASTATIN 20 MG TABLET PO SCH (10:17)
[2018-10-13] MEDS: ASPIRIN 81 MG CHEWABLE TABLET PO SCH (10:17)
[2018-10-13] MEDS: BENAZEPRIL HCL 5 MG TABLET PO SCH (10:18)
[2018-10-13] MEDS: LevETIRAcetam 250 MG TABLET PO SCH ×2 (10:18→17:08)
[2018-10-13] MEDS: HALOPERIDOL 5 MG TABLET PO PRN (10:23)
[2018-10-13 17:30] LABS: GLUCOMETER DEV NAME(LOC) BV3S.; GLUCOSE,POINT OF CARE 111 MG/DL (70-110)
[2018-10-14] MEDS: MetFORMIN HCL 500 MG TABLET PO SCH ×2 (06:26→17:10)
[2018-10-14] MEDS: FERROUS SULFATE 325 MG EC TABLET PO SCH ×2 (06:26→17:10)
[2018-10-14] MEDS: LEVOTHYROXINE SODIUM 75 MCG TABLET PO SCH (06:26)
[2018-10-14 06:31] VITALS: BP 120/79
[2018-10-14 06:34] LABS: GLUCOMETER DEV NAME(LOC) BV3S.; GLUCOSE,POINT OF CARE 84 MG/DL (70-110)
[2018-10-14 08:07] VITALS: BP 107/79
[2018-10-14] MEDS: DIVALPROEX SODIUM 500 MG DR TABLET PO SCH ×2 (08:12→17:10)
[2018-10-14] MEDS: LORATADINE 10 MG TABLET PO SCH (08:13)
[2018-10-14] MEDS: MULTIVITAMINS WITH MINERALS, THERAPEUTIC TABLET PO SCH (08:13)
[2018-10-14] MEDS: ASCORBIC ACID 500 MG TABLET PO SCH (08:13)
[2018-10-14] MEDS: QUEtiapine FUMARATE 200 MG TABLET PO SCH ×2 (08:13→20:42)
[2018-10-14] MEDS: SIMVASTATIN 20 MG TABLET PO SCH (08:13)
[2018-10-14] MEDS: ASPIRIN 81 MG CHEWABLE TABLET PO SCH (08:13)
[2018-10-14] MEDS: LevETIRAcetam 250 MG TABLET PO SCH ×2 (08:13→17:11)
[2018-10-14] MEDS: BENAZEPRIL HCL 5 MG TABLET PO SCH (08:13)
[2018-10-14] MEDS: FLUoxetine HCL 20 MG CAPSULE PO SCH (08:13)
[2018-10-14] MEDS: OXYBUTYNIN CHLORIDE 5 MG ER TABLET PO SCH (08:13)
[2018-10-14] MEDS: TOPIRAMATE 100 MG TABLET PO SCH ×3 (08:13→17:10)
[2018-10-14] MEDS: MAGNESIUM OXIDE 400 MG TABLET PO SCH ×2 (08:14→17:10)
[2018-10-14] MEDS: CHLORHEXIDINE GLUCONATE 4% 118 ML TOPICAL LIQUID TP SCH (09:00)
[2018-10-14] MEDS: SILVER 45 ML GEL TP SCH (09:00)
[2018-10-14] MEDS: HALOPERIDOL 5 MG TABLET PO PRN (17:10)
[2018-10-15 02:26] VITALS: BP 110/72
[2018-10-15] MEDS: FERROUS SULFATE 325 MG EC TABLET PO SCH ×2 (06:46→18:00)
[2018-10-15] MEDS: LEVOTHYROXINE SODIUM 75 MCG TABLET PO SCH (06:46)
[2018-10-15] MEDS: MetFORMIN HCL 500 MG TABLET PO SCH ×2 (06:47→18:00)
[2018-10-15 06:49] LABS: GLUCOMETER DEV NAME(LOC) BV3S.; GLUCOSE,POINT OF CARE 126 MG/DL (70-110)
[2018-10-15 08:00] VITALS: BP 120/64
[2018-10-15] MEDS: SILVER 45 ML GEL TP SCH (09:00)
[2018-10-15] MEDS: CHLORHEXIDINE GLUCONATE 4% 118 ML TOPICAL LIQUID TP SCH (09:00)
[2018-10-15] MEDS: FLUoxetine HCL 20 MG CAPSULE PO SCH (09:03)
[2018-10-15] MEDS: OMEPRAZOLE 20 MG CAPSULE PO PRN (09:03)
[2018-10-15] MEDS: QUEtiapine FUMARATE 200 MG TABLET PO SCH ×2 (09:04→20:37)
[2018-10-15] MEDS: LevETIRAcetam 250 MG TABLET PO SCH ×2 (09:05→18:00)
[2018-10-15] MEDS: ASPIRIN 81 MG CHEWABLE TABLET PO SCH (09:05)
[2018-10-15] MEDS: TOPIRAMATE 100 MG TABLET PO SCH ×3 (09:05→18:00)
[2018-10-15] MEDS: DIVALPROEX SODIUM 500 MG DR TABLET PO SCH ×2 (09:05→18:00)
[2018-10-15] MEDS: MULTIVITAMINS WITH MINERALS, THERAPEUTIC TABLET PO SCH (09:05)
[2018-10-15] MEDS: BENAZEPRIL HCL 5 MG TABLET PO SCH (09:05)
[2018-10-15] MEDS: SIMVASTATIN 20 MG TABLET PO SCH (09:05)
[2018-10-15] MEDS: LORATADINE 10 MG TABLET PO SCH (09:05)
[2018-10-15] MEDS: MAGNESIUM OXIDE 400 MG TABLET PO SCH ×2 (09:06→18:00)
[2018-10-15] MEDS: OXYBUTYNIN CHLORIDE 5 MG ER TABLET PO SCH (09:06)
[2018-10-15] MEDS: ASCORBIC ACID 500 MG TABLET PO SCH (09:06)
[2018-10-15 17:09] LABS: GLUCOMETER DEV NAME(LOC) BV3S.; GLUCOSE,POINT OF CARE 117 MG/DL (70-110)
[2018-10-15 17:36] VITALS: BP 105/58
[2018-10-16] MEDS: LEVOTHYROXINE SODIUM 75 MCG TABLET PO SCH (06:34)
[2018-10-16] MEDS: FERROUS SULFATE 325 MG EC TABLET PO SCH ×2 (06:46→16:44)
[2018-10-16] MEDS: MetFORMIN HCL 500 MG TABLET PO SCH ×2 (06:46→16:44)
[2018-10-16 06:59] LABS: GLUCOMETER DEV NAME(LOC) BV3S.; GLUCOSE,POINT OF CARE 114 MG/DL (70-110)
[2018-10-16 08:06] VITALS: BP 99/78
[2018-10-16] MEDS: BENAZEPRIL HCL 5 MG TABLET PO SCH (09:46)
[2018-10-16] MEDS: MULTIVITAMINS WITH MINERALS, THERAPEUTIC TABLET PO SCH (09:46)
[2018-10-16] MEDS: MAGNESIUM OXIDE 400 MG TABLET PO SCH ×2 (09:47→16:44)
[2018-10-16] MEDS: OXYBUTYNIN CHLORIDE 5 MG ER TABLET PO SCH (09:47)
[2018-10-16] MEDS: TOPIRAMATE 100 MG TABLET PO SCH ×3 (09:47→16:44)
[2018-10-16] MEDS: DIVALPROEX SODIUM 500 MG DR TABLET PO SCH ×2 (09:47→16:45)
[2018-10-16] MEDS: FLUoxetine HCL 20 MG CAPSULE PO SCH (09:47)
[2018-10-16] MEDS: QUEtiapine FUMARATE 200 MG TABLET PO SCH ×2 (09:47→20:09)
[2018-10-16] MEDS: LORATADINE 10 MG TABLET PO SCH (09:47)
[2018-10-16] MEDS: SIMVASTATIN 20 MG TABLET PO SCH (09:47)
[2018-10-16] MEDS: LevETIRAcetam 250 MG TABLET PO SCH ×2 (09:47→16:49)
[2018-10-16] MEDS: ASCORBIC ACID 500 MG TABLET PO SCH (09:47)
[2018-10-16] MEDS: ASPIRIN 81 MG CHEWABLE TABLET PO SCH (09:48)
[2018-10-16] MEDS: SILVER 45 ML GEL TP SCH (09:49)
[2018-10-16] MEDS: CHLORHEXIDINE GLUCONATE 4% 118 ML TOPICAL LIQUID TP SCH (09:50)
[2018-10-16 11:29] LABS: GLUCOMETER DEV NAME(LOC) BV3S.; GLUCOSE,POINT OF CARE 118 MG/DL (70-110)
[2018-10-16 16:15] VITALS: BP 109/73
[2018-10-16 18:19] LABS: GLUCOMETER DEV NAME(LOC) BV3S.; GLUCOSE,POINT OF CARE 112 MG/DL (70-110)
[2018-10-17 00:10] VITALS: BP 106/69
[2018-10-17] MEDS: LEVOTHYROXINE SODIUM 75 MCG TABLET PO SCH (06:30)
[2018-10-17 06:39] LABS: GLUCOMETER DEV NAME(LOC) BV3S.; GLUCOSE,POINT OF CARE 81 MG/DL (70-110)
[2018-10-17] MEDS: FERROUS SULFATE 325 MG EC TABLET PO SCH ×2 (07:00→17:21)
[2018-10-17] MEDS: MetFORMIN HCL 500 MG TABLET PO SCH ×2 (07:00→17:21)
[2018-10-17] MEDS: SILVER 45 ML GEL TP SCH (09:00)
[2018-10-17] MEDS: CHLORHEXIDINE GLUCONATE 4% 118 ML TOPICAL LIQUID TP SCH (09:00)
[2018-10-17] MEDS: MAGNESIUM OXIDE 400 MG TABLET PO SCH ×2 (10:20→17:21)
[2018-10-17] MEDS: SIMVASTATIN 20 MG TABLET PO SCH (10:20)
[2018-10-17] MEDS: LORATADINE 10 MG TABLET PO SCH (10:20)
[2018-10-17] MEDS: TOPIRAMATE 100 MG TABLET PO SCH ×3 (10:21→17:21)
[2018-10-17] MEDS: QUEtiapine FUMARATE 200 MG TABLET PO SCH ×2 (10:21→20:34)
[2018-10-17] MEDS: OXYBUTYNIN CHLORIDE 5 MG ER TABLET PO SCH (10:21)
[2018-10-17] MEDS: MULTIVITAMINS WITH MINERALS, THERAPEUTIC TABLET PO SCH (10:21)
[2018-10-17] MEDS: FLUoxetine HCL 20 MG CAPSULE PO SCH (10:21)
[2018-10-17] MEDS: ASPIRIN 81 MG CHEWABLE TABLET PO SCH (10:21)
[2018-10-17] MEDS: DIVALPROEX SODIUM 500 MG DR TABLET PO SCH ×2 (10:21→17:21)
[2018-10-17] MEDS: BENAZEPRIL HCL 5 MG TABLET PO SCH (10:21)
[2018-10-17] MEDS: LevETIRAcetam 250 MG TABLET PO SCH ×2 (10:21→17:21)
[2018-10-17] MEDS: ASCORBIC ACID 500 MG TABLET PO SCH (10:21)
[2018-10-17 16:00] VITALS: BP 108/75
[2018-10-17 16:59] LABS: GLUCOMETER DEV NAME(LOC) BV3S.; GLUCOSE,POINT OF CARE 143 MG/DL (70-110)
[2018-10-17] MEDS: INSULIN LISPRO 100 UNITS/ML SQ PRN (17:24)
[2018-10-18] MEDS: LEVOTHYROXINE SODIUM 75 MCG TABLET PO SCH (06:30)
[2018-10-18] MEDS: FERROUS SULFATE 325 MG EC TABLET PO SCH ×2 (07:00→17:00)
[2018-10-18] MEDS: MetFORMIN HCL 500 MG TABLET PO SCH ×2 (07:00→17:01)
[2018-10-18 08:11] VITALS: BP 129/70
[2018-10-18] MEDS: LevETIRAcetam 250 MG TABLET PO SCH ×2 (08:58→17:00)
[2018-10-18] MEDS: LORATADINE 10 MG TABLET PO SCH (08:59)
[2018-10-18] MEDS: DIVALPROEX SODIUM 500 MG DR TABLET PO SCH ×2 (08:59→17:01)
[2018-10-18] MEDS: BENAZEPRIL HCL 5 MG TABLET PO SCH (08:59)
[2018-10-18] MEDS: MULTIVITAMINS WITH MINERALS, THERAPEUTIC TABLET PO SCH (08:59)
[2018-10-18] MEDS: FLUoxetine HCL 20 MG CAPSULE PO SCH (08:59)
[2018-10-18] MEDS: ASPIRIN 81 MG CHEWABLE TABLET PO SCH (08:59)
[2018-10-18] MEDS: MAGNESIUM OXIDE 400 MG TABLET PO SCH ×2 (08:59→17:01)
[2018-10-18] MEDS: HALOPERIDOL 5 MG TABLET PO PRN ×2 (08:59→09:31)
[2018-10-18] MEDS: OXYBUTYNIN CHLORIDE 5 MG ER TABLET PO SCH (08:59)
[2018-10-18] MEDS: ASCORBIC ACID 500 MG TABLET PO SCH (08:59)
[2018-10-18] MEDS: TOPIRAMATE 100 MG TABLET PO SCH ×3 (08:59→17:00)
[2018-10-18] MEDS: QUEtiapine FUMARATE 200 MG TABLET PO SCH ×2 (09:08→20:23)
[2018-10-18] MEDS: SIMVASTATIN 20 MG TABLET PO SCH (09:08)
[2018-10-18] MEDS: CHLORHEXIDINE GLUCONATE 4% 118 ML TOPICAL LIQUID TP SCH (09:09)
[2018-10-18] MEDS: SILVER 45 ML GEL TP SCH (09:09)
[2018-10-18 17:09] LABS: GLUCOMETER DEV NAME(LOC) BV3S.; GLUCOSE,POINT OF CARE 129 MG/DL (70-110)
[2018-10-18 19:45] VITALS: BP 114/68
[2018-10-18] MEDS: INSULIN LISPRO 100 UNITS/ML SQ PRN (20:40)
[2018-10-18 20:57] LABS: GLUCOMETER DEV NAME(LOC) 3E.C; GLUCOSE,POINT OF CARE 185 MG/DL (70-110)
[2018-10-19 06:19] LABS: GLUCOMETER DEV NAME(LOC) 3E.C; GLUCOSE,POINT OF CARE 92 MG/DL (70-110)
[2018-10-19] MEDS: INSULIN LISPRO 100 UNITS/ML SQ PRN (06:45)
[2018-10-19] MEDS: FERROUS SULFATE 325 MG EC TABLET PO SCH ×2 (06:46→16:51)
[2018-10-19] MEDS: MetFORMIN HCL 500 MG TABLET PO SCH ×2 (06:46→16:52)
[2018-10-19] MEDS: LEVOTHYROXINE SODIUM 75 MCG TABLET PO SCH (06:47)
[2018-10-19] MEDS: QUEtiapine FUMARATE 200 MG TABLET PO SCH ×2 (08:19→20:44)
[2018-10-19] MEDS: ASCORBIC ACID 500 MG TABLET PO SCH (08:20)
[2018-10-19] MEDS: FLUoxetine HCL 20 MG CAPSULE PO SCH (08:20)
[2018-10-19] MEDS: MULTIVITAMINS WITH MINERALS, THERAPEUTIC TABLET PO SCH (08:20)
[2018-10-19] MEDS: ASPIRIN 81 MG CHEWABLE TABLET PO SCH (08:20)
[2018-10-19] MEDS: DIVALPROEX SODIUM 500 MG DR TABLET PO SCH ×2 (08:20→16:51)
[2018-10-19] MEDS: MAGNESIUM OXIDE 400 MG TABLET PO SCH ×2 (08:20→16:51)
[2018-10-19] MEDS: BENAZEPRIL HCL 5 MG TABLET PO SCH (08:21)
[2018-10-19] MEDS: LevETIRAcetam 250 MG TABLET PO SCH ×2 (08:21→16:51)
[2018-10-19] MEDS: LORATADINE 10 MG TABLET PO SCH (08:21)
[2018-10-19] MEDS: OXYBUTYNIN CHLORIDE 5 MG ER TABLET PO SCH (08:21)
[2018-10-19] MEDS: SIMVASTATIN 20 MG TABLET PO SCH (08:22)
[2018-10-19] MEDS: TOPIRAMATE 100 MG TABLET PO SCH ×3 (08:22→16:51)
[2018-10-19 08:46] VITALS: BP 117/74
[2018-10-19] MEDS: SILVER 45 ML GEL TP SCH (13:08)
[2018-10-19] MEDS: CHLORHEXIDINE GLUCONATE 4% 118 ML TOPICAL LIQUID TP SCH (13:08)
[2018-10-19 17:34] LABS: GLUCOMETER DEV NAME(LOC) 3E.C; GLUCOSE,POINT OF CARE 105 MG/DL (70-110)
[2018-10-20 06:14] LABS: GLUCOMETER DEV NAME(LOC) 3E.C; GLUCOSE,POINT OF CARE 142 MG/DL (70-110)
[2018-10-20] MEDS: LEVOTHYROXINE SODIUM 75 MCG TABLET PO SCH (07:02)
[2018-10-20] MEDS: MetFORMIN HCL 500 MG TABLET PO SCH ×2 (07:02→17:18)
[2018-10-20] MEDS: FERROUS SULFATE 325 MG EC TABLET PO SCH ×2 (07:02→17:18)
[2018-10-20] MEDS: INSULIN LISPRO 100 UNITS/ML SQ PRN (07:05)
[2018-10-20] MEDS: CHLORHEXIDINE GLUCONATE 4% 118 ML TOPICAL LIQUID TP SCH (09:15)
[2018-10-20] MEDS: SILVER 45 ML GEL TP SCH (09:16)
[2018-10-20] MEDS: MULTIVITAMINS WITH MINERALS, THERAPEUTIC TABLET PO SCH (09:36)
[2018-10-20] MEDS: ASCORBIC ACID 500 MG TABLET PO SCH (09:37)
[2018-10-20] MEDS: ASPIRIN 81 MG CHEWABLE TABLET PO SCH (09:37)
[2018-10-20] MEDS: DIVALPROEX SODIUM 500 MG DR TABLET PO SCH ×2 (09:37→17:18)
[2018-10-20] MEDS: LevETIRAcetam 250 MG TABLET PO SCH ×2 (09:37→17:18)
[2018-10-20] MEDS: FLUoxetine HCL 20 MG CAPSULE PO SCH (09:37)
[2018-10-20] MEDS: QUEtiapine FUMARATE 200 MG TABLET PO SCH ×2 (09:37→20:22)
[2018-10-20] MEDS: LORATADINE 10 MG TABLET PO SCH (09:37)
[2018-10-20] MEDS: BENAZEPRIL HCL 5 MG TABLET PO SCH (09:37)
[2018-10-20] MEDS: HALOPERIDOL 5 MG TABLET PO PRN (09:37)
[2018-10-20] MEDS: MAGNESIUM OXIDE 400 MG TABLET PO SCH ×2 (09:37→17:18)
[2018-10-20] MEDS: SIMVASTATIN 20 MG TABLET PO SCH (09:37)
[2018-10-20] MEDS: OXYBUTYNIN CHLORIDE 5 MG ER TABLET PO SCH (09:37)
[2018-10-20] MEDS: TOPIRAMATE 100 MG TABLET PO SCH ×3 (09:38→17:18)
[2018-10-20 11:12] VITALS: BP 118/75
[2018-10-20 19:12] VITALS: BP 116/78
[2018-10-20 21:50] LABS: GLUCOMETER DEV NAME(LOC) 3E.C; GLUCOSE,POINT OF CARE 141 MG/DL (70-110)
[2018-10-20 21:50] LABS: GLUCOMETER DEV NAME(LOC) 3E.C; GLUCOSE,POINT OF CARE 115 MG/DL (70-110)
[2018-10-21 06:30] LABS: GLUCOMETER DEV NAME(LOC) 3EX.; GLUCOSE,POINT OF CARE 124 MG/DL (70-110)
[2018-10-21] MEDS: LEVOTHYROXINE SODIUM 75 MCG TABLET PO SCH (06:48)
[2018-10-21] MEDS: FERROUS SULFATE 325 MG EC TABLET PO SCH ×2 (06:56→17:12)
[2018-10-21] MEDS: INSULIN LISPRO 100 UNITS/ML SQ PRN (06:57)
[2018-10-21] MEDS: MetFORMIN HCL 500 MG TABLET PO SCH ×2 (06:57→17:12)
[2018-10-21 08:05] VITALS: BP 138/88
[2018-10-21] MEDS: HALOPERIDOL 5 MG TABLET PO PRN (08:37)
[2018-10-21] MEDS: TOPIRAMATE 100 MG TABLET PO SCH ×3 (08:37→17:12)
[2018-10-21] MEDS: MAGNESIUM OXIDE 400 MG TABLET PO SCH ×2 (08:37→17:12)
[2018-10-21] MEDS: ASCORBIC ACID 500 MG TABLET PO SCH (08:37)
[2018-10-21] MEDS: FLUoxetine HCL 20 MG CAPSULE PO SCH (08:37)
[2018-10-21] MEDS: SIMVASTATIN 20 MG TABLET PO SCH (08:37)
[2018-10-21] MEDS: DIVALPROEX SODIUM 500 MG DR TABLET PO SCH ×2 (08:37→17:11)
[2018-10-21] MEDS: MULTIVITAMINS WITH MINERALS, THERAPEUTIC TABLET PO SCH (08:37)
[2018-10-21] MEDS: LevETIRAcetam 250 MG TABLET PO SCH ×2 (08:37→17:11)
[2018-10-21] MEDS: BENAZEPRIL HCL 5 MG TABLET PO SCH (08:38)
[2018-10-21] MEDS: LORATADINE 10 MG TABLET PO SCH (08:38)
[2018-10-21] MEDS: ASPIRIN 81 MG CHEWABLE TABLET PO SCH (08:38)
[2018-10-21] MEDS: QUEtiapine FUMARATE 200 MG TABLET PO SCH ×2 (08:38→20:44)
[2018-10-21] MEDS: SILVER 45 ML GEL TP SCH (08:39)
[2018-10-21] MEDS: CHLORHEXIDINE GLUCONATE 4% 118 ML TOPICAL LIQUID TP SCH (08:39)
[2018-10-21] MEDS: OXYBUTYNIN CHLORIDE 5 MG ER TABLET PO SCH (08:39)
[2018-10-21 17:49] LABS: GLUCOMETER DEV NAME(LOC) 3E.C; GLUCOSE,POINT OF CARE 115 MG/DL (70-110)
[2018-10-22 06:15] LABS: GLUCOMETER DEV NAME(LOC) 3E.C; GLUCOSE,POINT OF CARE 89 MG/DL (70-110)
[2018-10-22] MEDS: FERROUS SULFATE 325 MG EC TABLET PO SCH ×2 (06:43→16:37)
[2018-10-22] MEDS: LEVOTHYROXINE SODIUM 75 MCG TABLET PO SCH (06:44)
[2018-10-22] MEDS: MetFORMIN HCL 500 MG TABLET PO SCH ×2 (06:44→16:37)
[2018-10-22] MEDS: FLUoxetine HCL 20 MG CAPSULE PO SCH (07:45)
[2018-10-22] MEDS: LevETIRAcetam 250 MG TABLET PO SCH ×2 (07:46→16:37)
[2018-10-22] MEDS: ASPIRIN 81 MG CHEWABLE TABLET PO SCH (07:46)
[2018-10-22] MEDS: DIVALPROEX SODIUM 500 MG DR TABLET PO SCH ×2 (07:46→16:37)
[2018-10-22] MEDS: TOPIRAMATE 100 MG TABLET PO SCH ×3 (07:46→16:37)
[2018-10-22] MEDS: ASCORBIC ACID 500 MG TABLET PO SCH (07:46)
[2018-10-22] MEDS: QUEtiapine FUMARATE 200 MG TABLET PO SCH ×2 (07:46→20:29)
[2018-10-22] MEDS: MAGNESIUM OXIDE 400 MG TABLET PO SCH ×2 (07:46→16:37)
[2018-10-22] MEDS: OXYBUTYNIN CHLORIDE 5 MG ER TABLET PO SCH (07:47)
[2018-10-22] MEDS: LORATADINE 10 MG TABLET PO SCH (07:47)
[2018-10-22] MEDS: BENAZEPRIL HCL 5 MG TABLET PO SCH (07:47)
[2018-10-22] MEDS: CHLORHEXIDINE GLUCONATE 4% 118 ML TOPICAL LIQUID TP SCH (07:48)
[2018-10-22] MEDS: SILVER 45 ML GEL TP SCH (07:48)
[2018-10-22] MEDS: SIMVASTATIN 20 MG TABLET PO SCH (07:48)
[2018-10-22] MEDS: MULTIVITAMINS WITH MINERALS, THERAPEUTIC TABLET PO SCH (07:48)
[2018-10-22] MEDS: HALOPERIDOL 5 MG TABLET PO PRN (07:49)
[2018-10-22 08:00] VITALS: BP 138/99
[2018-10-22 17:09] LABS: GLUCOMETER DEV NAME(LOC) 3E.C; GLUCOSE,POINT OF CARE 107 MG/DL (70-110)
[2018-10-22 19:21] VITALS: BP 125/90
[2018-10-23 06:20] LABS: GLUCOMETER DEV NAME(LOC) 3E.C; GLUCOSE,POINT OF CARE 79 MG/DL (70-110)
[2018-10-23] MEDS: LEVOTHYROXINE SODIUM 75 MCG TABLET PO SCH (06:55)
[2018-10-23] MEDS: FERROUS SULFATE 325 MG EC TABLET PO SCH ×2 (06:56→16:41)
[2018-10-23] MEDS: MetFORMIN HCL 500 MG TABLET PO SCH ×2 (06:56→16:41)
[2018-10-23] MEDS: FLUoxetine HCL 20 MG CAPSULE PO SCH (08:27)
[2018-10-23] MEDS: SIMVASTATIN 20 MG TABLET PO SCH (08:27)
[2018-10-23] MEDS: TOPIRAMATE 100 MG TABLET PO SCH ×3 (08:27→16:41)
[2018-10-23] MEDS: ASCORBIC ACID 500 MG TABLET PO SCH (08:27)
[2018-10-23] MEDS: DIVALPROEX SODIUM 500 MG DR TABLET PO SCH ×2 (08:27→16:41)
[2018-10-23] MEDS: LevETIRAcetam 250 MG TABLET PO SCH ×2 (08:27→16:41)
[2018-10-23] MEDS: MULTIVITAMINS WITH MINERALS, THERAPEUTIC TABLET PO SCH (08:27)
[2018-10-23] MEDS: HALOPERIDOL 5 MG TABLET PO PRN (08:27)
[2018-10-23] MEDS: QUEtiapine FUMARATE 200 MG TABLET PO SCH ×2 (08:27→20:09)
[2018-10-23] MEDS: OXYBUTYNIN CHLORIDE 5 MG ER TABLET PO SCH (08:27)
[2018-10-23] MEDS: DOCUSATE SODIUM 100 MG CAPSULE PO PRN (08:27)
[2018-10-23] MEDS: LORATADINE 10 MG TABLET PO SCH (08:27)
[2018-10-23] MEDS: BENAZEPRIL HCL 5 MG TABLET PO SCH (08:28)
[2018-10-23] MEDS: MAGNESIUM OXIDE 400 MG TABLET PO SCH ×2 (08:28→16:41)
[2018-10-23] MEDS: ASPIRIN 81 MG CHEWABLE TABLET PO SCH (08:28)
[2018-10-23 09:00] VITALS: BP 126/55
[2018-10-23 16:45] LABS: GLUCOMETER DEV NAME(LOC) 3E.C; GLUCOSE,POINT OF CARE 147 MG/DL (70-110)
[2018-10-23 16:58] VITALS: BP 121/67
[2018-10-23] MEDS: INSULIN LISPRO 100 UNITS/ML SQ PRN (17:12)
[2018-10-23] MEDS ORDERED: LORazepam 2 MG/ML VIAL IM ONE (18:15)
[2018-10-23] MEDS ORDERED: DiphenhydrAMINE HCL 50 MG/ML VIAL IM ONE (18:15)
[2018-10-23] MEDS ORDERED: HALOPERIDOL LACTATE 5 MG/ML VIAL IM ONE (18:15)
[2018-10-23] MEDS: HALOPERIDOL 10 MG TABLET PO SCH (20:09)
[2018-10-24 06:24] LABS: GLUCOMETER DEV NAME(LOC) 3E.C; GLUCOSE,POINT OF CARE 128 MG/DL (70-110)
[2018-10-24] MEDS: LEVOTHYROXINE SODIUM 75 MCG TABLET PO SCH (07:00)
[2018-10-24] MEDS: FERROUS SULFATE 325 MG EC TABLET PO SCH ×2 (07:03→19:39)
[2018-10-24] MEDS: MetFORMIN HCL 500 MG TABLET PO SCH ×2 (07:03→19:40)
[2018-10-24] MEDS: FLUoxetine HCL 20 MG CAPSULE PO SCH (10:40)
[2018-10-24] MEDS: BENAZEPRIL HCL 5 MG TABLET PO SCH (10:40)
[2018-10-24] MEDS: DIVALPROEX SODIUM 500 MG DR TABLET PO SCH ×2 (10:40→19:40)
[2018-10-24] MEDS: QUEtiapine FUMARATE 200 MG TABLET PO SCH ×2 (10:40→20:18)
[2018-10-24] MEDS: OXYBUTYNIN CHLORIDE 5 MG ER TABLET PO SCH (10:40)
[2018-10-24] MEDS: MULTIVITAMINS WITH MINERALS, THERAPEUTIC TABLET PO SCH (10:40)
[2018-10-24] MEDS: LORATADINE 10 MG TABLET PO SCH (10:40)
[2018-10-24] MEDS: ASPIRIN 81 MG CHEWABLE TABLET PO SCH (10:40)
[2018-10-24] MEDS: SIMVASTATIN 20 MG TABLET PO SCH (10:40)
[2018-10-24] MEDS: OMEPRAZOLE 20 MG CAPSULE PO PRN (10:41)
[2018-10-24] MEDS: LevETIRAcetam 250 MG TABLET PO SCH ×2 (10:41→19:39)
[2018-10-24] MEDS: ASCORBIC ACID 500 MG TABLET PO SCH (10:41)
[2018-10-24] MEDS: TOPIRAMATE 100 MG TABLET PO SCH ×3 (10:41→19:39)
[2018-10-24] MEDS: MAGNESIUM OXIDE 400 MG TABLET PO SCH ×2 (10:42→19:40)
[2018-10-24 16:54] LABS: GLUCOMETER DEV NAME(LOC) 3E.C; GLUCOSE,POINT OF CARE 105 MG/DL (70-110)
[2018-10-24 17:40] VITALS: BP 106/64
[2018-10-24] MEDS: HALOPERIDOL 10 MG TABLET PO SCH (20:18)
[2018-10-25 06:25] LABS: GLUCOMETER DEV NAME(LOC) 3E.C; GLUCOSE,POINT OF CARE 100 MG/DL (70-110)
[2018-10-25] MEDS: LEVOTHYROXINE SODIUM 75 MCG TABLET PO SCH (06:55)
[2018-10-25] MEDS: MetFORMIN HCL 500 MG TABLET PO SCH ×2 (06:55→17:36)
[2018-10-25] MEDS: FERROUS SULFATE 325 MG EC TABLET PO SCH ×2 (06:55→17:36)
[2018-10-25] MEDS: INSULIN LISPRO 100 UNITS/ML SQ PRN (06:56)
[2018-10-25 08:00] VITALS: BP 91/60
[2018-10-25] MEDS ORDERED: DIVALPROEX SODIUM 500 MG DR TABLET PO SCH ×2 (09:00→21:00)
[2018-10-25] MEDS: ASCORBIC ACID 500 MG TABLET PO SCH (10:41)
[2018-10-25] MEDS: FLUoxetine HCL 20 MG CAPSULE PO SCH (10:41)
[2018-10-25] MEDS: TOPIRAMATE 100 MG TABLET PO SCH ×3 (10:41→17:36)
[2018-10-25] MEDS: LORATADINE 10 MG TABLET PO SCH (10:41)
[2018-10-25] MEDS: LevETIRAcetam 250 MG TABLET PO SCH ×2 (10:41→17:36)
[2018-10-25] MEDS: ASPIRIN 81 MG CHEWABLE TABLET PO SCH (10:41)
[2018-10-25] MEDS: MULTIVITAMINS WITH MINERALS, THERAPEUTIC TABLET PO SCH (10:41)
[2018-10-25] MEDS: OXYBUTYNIN CHLORIDE 5 MG ER TABLET PO SCH (10:41)
[2018-10-25] MEDS: MAGNESIUM OXIDE 400 MG TABLET PO SCH ×2 (10:41→17:36)
[2018-10-25] MEDS: BENAZEPRIL HCL 5 MG TABLET PO SCH (10:41)
[2018-10-25] MEDS: QUEtiapine FUMARATE 200 MG TABLET PO SCH ×2 (10:42→20:32)
[2018-10-25 11:45] VITALS: BP 104/69
[2018-10-25 17:55] LABS: GLUCOMETER DEV NAME(LOC) 3E.C; GLUCOSE,POINT OF CARE 118 MG/DL (70-110)
[2018-10-25] MEDS: DIVALPROEX SODIUM 500 MG DR TABLET PO SCH (20:32)
[2018-10-25] MEDS: HALOPERIDOL 10 MG TABLET PO SCH (20:32)
[2018-10-25 21:17] VITALS: BP 108/73
[2018-10-26 06:04] LABS: GLUCOMETER DEV NAME(LOC) 3E.C; GLUCOSE,POINT OF CARE 96 MG/DL (70-110)
[2018-10-26] MEDS: LEVOTHYROXINE SODIUM 75 MCG TABLET PO SCH (06:57)
[2018-10-26] MEDS: MetFORMIN HCL 500 MG TABLET PO SCH ×2 (06:57→16:55)
[2018-10-26] MEDS: FERROUS SULFATE 325 MG EC TABLET PO SCH ×2 (06:57→16:55)
[2018-10-26] MEDS: OXYBUTYNIN CHLORIDE 5 MG ER TABLET PO SCH (07:39)
[2018-10-26] MEDS: ASCORBIC ACID 500 MG TABLET PO SCH (07:39)
[2018-10-26] MEDS: QUEtiapine FUMARATE 200 MG TABLET PO SCH ×2 (07:39→20:05)
[2018-10-26] MEDS: LevETIRAcetam 250 MG TABLET PO SCH ×2 (07:39→16:55)
[2018-10-26] MEDS: ASPIRIN 81 MG CHEWABLE TABLET PO SCH (07:39)
[2018-10-26] MEDS: LORATADINE 10 MG TABLET PO SCH (07:39)
[2018-10-26] MEDS: MULTIVITAMINS WITH MINERALS, THERAPEUTIC TABLET PO SCH (07:39)
[2018-10-26] MEDS: DIVALPROEX SODIUM 500 MG DR TABLET PO SCH ×2 (07:40→20:05)
[2018-10-26] MEDS: TOPIRAMATE 100 MG TABLET PO SCH ×3 (07:40→16:55)
[2018-10-26] MEDS: FLUoxetine HCL 20 MG CAPSULE PO SCH (07:40)
[2018-10-26] MEDS: MAGNESIUM OXIDE 400 MG TABLET PO SCH ×2 (07:40→16:55)
[2018-10-26] MEDS: BENAZEPRIL HCL 5 MG TABLET PO SCH (07:40)
[2018-10-26 08:00] VITALS: BP 106/65
[2018-10-26] MEDS: HALOPERIDOL 5 MG TABLET PO PRN (12:12)
[2018-10-26 17:49] LABS: GLUCOMETER DEV NAME(LOC) 3E.C; GLUCOSE,POINT OF CARE 126 MG/DL (70-110)
[2018-10-26] MEDS: HALOPERIDOL 10 MG TABLET PO SCH (20:05)
[2018-10-27 05:45] LABS: GLUCOMETER DEV NAME(LOC) 3E.C; GLUCOSE,POINT OF CARE 99 MG/DL (70-110)
[2018-10-27] MEDS: MetFORMIN HCL 500 MG TABLET PO SCH ×2 (06:44→17:06)
[2018-10-27] MEDS: FERROUS SULFATE 325 MG EC TABLET PO SCH ×2 (06:44→17:06)
[2018-10-27] MEDS: LEVOTHYROXINE SODIUM 75 MCG TABLET PO SCH (06:44)
[2018-10-27] MEDS: LevETIRAcetam 250 MG TABLET PO SCH ×2 (08:33→17:06)
[2018-10-27] MEDS: LORATADINE 10 MG TABLET PO SCH (08:33)
[2018-10-27] MEDS: FLUoxetine HCL 20 MG CAPSULE PO SCH (08:33)
[2018-10-27] MEDS: DIVALPROEX SODIUM 500 MG DR TABLET PO SCH ×2 (08:34→20:37)
[2018-10-27] MEDS: ASCORBIC ACID 500 MG TABLET PO SCH (08:34)
[2018-10-27] MEDS: TOPIRAMATE 100 MG TABLET PO SCH ×3 (08:34→17:06)
[2018-10-27] MEDS: QUEtiapine FUMARATE 200 MG TABLET PO SCH ×2 (08:34→20:37)
[2018-10-27] MEDS: BENAZEPRIL HCL 5 MG TABLET PO SCH (08:34)
[2018-10-27] MEDS: ASPIRIN 81 MG CHEWABLE TABLET PO SCH (08:34)
[2018-10-27] MEDS: MULTIVITAMINS WITH MINERALS, THERAPEUTIC TABLET PO SCH (08:34)
[2018-10-27] MEDS: OXYBUTYNIN CHLORIDE 5 MG ER TABLET PO SCH (08:34)
[2018-10-27] MEDS: MAGNESIUM OXIDE 400 MG TABLET PO SCH ×2 (08:36→17:06)
[2018-10-27 17:25] LABS: GLUCOMETER DEV NAME(LOC) 3E.C; GLUCOSE,POINT OF CARE 81 MG/DL (70-110)
[2018-10-27 17:39] VITALS: BP 109/77
[2018-10-27] MEDS: HALOPERIDOL 10 MG TABLET PO SCH (20:37)
[2018-10-28] MEDS: LEVOTHYROXINE SODIUM 75 MCG TABLET PO SCH (07:00)
[2018-10-28] MEDS: MetFORMIN HCL 500 MG TABLET PO SCH ×2 (07:02→17:09)
[2018-10-28] MEDS: FERROUS SULFATE 325 MG EC TABLET PO SCH ×2 (07:02→17:09)
[2018-10-28] MEDS: LORATADINE 10 MG TABLET PO SCH (07:46)
[2018-10-28] MEDS: BENAZEPRIL HCL 5 MG TABLET PO SCH (07:46)
[2018-10-28] MEDS: FLUoxetine HCL 20 MG CAPSULE PO SCH (07:47)
[2018-10-28] MEDS: ASPIRIN 81 MG CHEWABLE TABLET PO SCH (07:47)
[2018-10-28] MEDS: OXYBUTYNIN CHLORIDE 5 MG ER TABLET PO SCH (07:47)
[2018-10-28] MEDS: TOPIRAMATE 100 MG TABLET PO SCH ×3 (07:47→17:09)
[2018-10-28] MEDS: DIVALPROEX SODIUM 500 MG DR TABLET PO SCH ×2 (07:47→20:05)
[2018-10-28] MEDS: LevETIRAcetam 250 MG TABLET PO SCH ×2 (07:47→17:09)
[2018-10-28] MEDS: MULTIVITAMINS WITH MINERALS, THERAPEUTIC TABLET PO SCH (07:47)
[2018-10-28] MEDS: ASCORBIC ACID 500 MG TABLET PO SCH (07:47)
[2018-10-28] MEDS: QUEtiapine FUMARATE 200 MG TABLET PO SCH ×2 (07:47→20:05)
[2018-10-28] MEDS: MAGNESIUM OXIDE 400 MG TABLET PO SCH ×2 (07:47→17:09)
[2018-10-28 09:32] VITALS: BP 107/65
[2018-10-28 17:19] LABS: GLUCOMETER DEV NAME(LOC) 3E.C; GLUCOSE,POINT OF CARE 109 MG/DL (70-110)
[2018-10-28] MEDS: HALOPERIDOL 10 MG TABLET PO SCH (20:05)
[2018-10-29 06:39] LABS: GLUCOMETER DEV NAME(LOC) 3E.C; GLUCOSE,POINT OF CARE 53 MG/DL (70-110)
[2018-10-29] MEDS: MetFORMIN HCL 500 MG TABLET PO SCH ×2 (07:04→16:52)
[2018-10-29] MEDS: FERROUS SULFATE 325 MG EC TABLET PO SCH ×2 (07:04→16:52)
[2018-10-29] MEDS: LEVOTHYROXINE SODIUM 75 MCG TABLET PO SCH (07:04)
[2018-10-29 07:19] LABS: GLUCOMETER DEV NAME(LOC) 3E.C; GLUCOSE,POINT OF CARE 65 MG/DL (70-110)
[2018-10-29 08:00] VITALS: BP 117/61
[2018-10-29] MEDS: LORATADINE 10 MG TABLET PO SCH (11:01)
[2018-10-29] MEDS: DIVALPROEX SODIUM 500 MG DR TABLET PO SCH ×2 (11:01→20:03)
[2018-10-29] MEDS: BENAZEPRIL HCL 5 MG TABLET PO SCH (11:01)
[2018-10-29] MEDS: MULTIVITAMINS WITH MINERALS, THERAPEUTIC TABLET PO SCH (11:01)
[2018-10-29] MEDS: LevETIRAcetam 250 MG TABLET PO SCH ×2 (11:01→16:52)
[2018-10-29] MEDS: ASCORBIC ACID 500 MG TABLET PO SCH (11:01)
[2018-10-29] MEDS: FLUoxetine HCL 20 MG CAPSULE PO SCH (11:01)
[2018-10-29] MEDS: QUEtiapine FUMARATE 200 MG TABLET PO SCH ×2 (11:01→20:03)
[2018-10-29] MEDS: ASPIRIN 81 MG CHEWABLE TABLET PO SCH (11:02)
[2018-10-29] MEDS: TOPIRAMATE 100 MG TABLET PO SCH ×3 (11:02→16:51)
[2018-10-29] MEDS: MAGNESIUM OXIDE 400 MG TABLET PO SCH ×2 (11:02→16:52)
[2018-10-29] MEDS: OXYBUTYNIN CHLORIDE 5 MG ER TABLET PO SCH (11:03)
[2018-10-29 12:04] LABS: GLUCOMETER DEV NAME(LOC) 3E.C; GLUCOSE,POINT OF CARE 113 MG/DL (70-110)
[2018-10-29 16:58] LABS: GLUCOMETER DEV NAME(LOC) 3E.C; GLUCOSE,POINT OF CARE 102 MG/DL (70-110)
[2018-10-29 19:11] VITALS: BP 105/62
[2018-10-29] MEDS: HALOPERIDOL 10 MG TABLET PO SCH (20:03)
[2018-10-30 06:20] LABS: GLUCOMETER DEV NAME(LOC) 3E.C; GLUCOSE,POINT OF CARE 94 MG/DL (70-110)
[2018-10-30] MEDS: LEVOTHYROXINE SODIUM 75 MCG TABLET PO SCH (06:54)
[2018-10-30] MEDS: FERROUS SULFATE 325 MG EC TABLET PO SCH ×2 (06:54→16:36)
[2018-10-30] MEDS: MetFORMIN HCL 500 MG TABLET PO SCH ×2 (06:54→16:36)
[2018-10-30] MEDS: FLUoxetine HCL 20 MG CAPSULE PO SCH (09:32)
[2018-10-30] MEDS: LevETIRAcetam 250 MG TABLET PO SCH ×2 (09:32→16:36)
[2018-10-30] MEDS: DIVALPROEX SODIUM 500 MG DR TABLET PO SCH ×2 (09:33→20:15)
[2018-10-30] MEDS: TOPIRAMATE 100 MG TABLET PO SCH ×3 (09:33→16:36)
[2018-10-30] MEDS: HALOPERIDOL 5 MG TABLET PO PRN (09:33)
[2018-10-30] MEDS: ASPIRIN 81 MG CHEWABLE TABLET PO SCH (09:33)
[2018-10-30] MEDS: MAGNESIUM OXIDE 400 MG TABLET PO SCH ×2 (09:33→16:36)
[2018-10-30] MEDS: QUEtiapine FUMARATE 200 MG TABLET PO SCH ×2 (09:33→20:15)
[2018-10-30] MEDS: ASCORBIC ACID 500 MG TABLET PO SCH (09:34)
[2018-10-30] MEDS: LORATADINE 10 MG TABLET PO SCH (09:34)
[2018-10-30] MEDS: BENAZEPRIL HCL 5 MG TABLET PO SCH (09:34)
[2018-10-30] MEDS: OXYBUTYNIN CHLORIDE 5 MG ER TABLET PO SCH (09:34)
[2018-10-30] MEDS: MULTIVITAMINS WITH MINERALS, THERAPEUTIC TABLET PO SCH (09:44)
[2018-10-30 16:34] LABS: GLUCOMETER DEV NAME(LOC) 3E.C; GLUCOSE,POINT OF CARE 119 MG/DL (70-110)
[2018-10-30 18:15] VITALS: BP 113/73
[2018-10-30] MEDS: HALOPERIDOL 10 MG TABLET PO SCH (20:15)
[2018-10-31 06:00] LABS: GLUCOMETER DEV NAME(LOC) 3E.C; GLUCOSE,POINT OF CARE 98 MG/DL (70-110)
[2018-10-31] MEDS: LEVOTHYROXINE SODIUM 75 MCG TABLET PO SCH (06:46)
[2018-10-31] MEDS: FERROUS SULFATE 325 MG EC TABLET PO SCH ×2 (06:46→16:45)
[2018-10-31] MEDS: MetFORMIN HCL 500 MG TABLET PO SCH ×2 (06:46→16:45)
[2018-10-31 08:00] VITALS: BP 92/58
[2018-10-31] MEDS: ASCORBIC ACID 500 MG TABLET PO SCH (08:24)
[2018-10-31] MEDS: LORATADINE 10 MG TABLET PO SCH (08:24)
[2018-10-31] MEDS: MULTIVITAMINS WITH MINERALS, THERAPEUTIC TABLET PO SCH (08:24)
[2018-10-31] MEDS: TOPIRAMATE 100 MG TABLET PO SCH ×3 (08:24→16:45)
[2018-10-31] MEDS: FLUoxetine HCL 20 MG CAPSULE PO SCH (08:24)
[2018-10-31] MEDS: LevETIRAcetam 250 MG TABLET PO SCH ×2 (08:24→16:45)
[2018-10-31] MEDS: DIVALPROEX SODIUM 500 MG DR TABLET PO SCH ×2 (08:24→20:35)
[2018-10-31] MEDS: QUEtiapine FUMARATE 200 MG TABLET PO SCH ×2 (08:25→20:35)
[2018-10-31] MEDS: BENAZEPRIL HCL 5 MG TABLET PO SCH (08:25)
[2018-10-31] MEDS: MAGNESIUM OXIDE 400 MG TABLET PO SCH ×2 (08:25→16:45)
[2018-10-31] MEDS: OXYBUTYNIN CHLORIDE 5 MG ER TABLET PO SCH (08:26)
[2018-10-31] MEDS: ASPIRIN 81 MG CHEWABLE TABLET PO SCH (08:26)
[2018-10-31] MEDS: HALOPERIDOL 5 MG TABLET PO PRN (09:48)
[2018-10-31 17:41] LABS: GLUCOMETER DEV NAME(LOC) 3E.C; GLUCOSE,POINT OF CARE 101 MG/DL (70-110)
[2018-10-31 18:45] VITALS: BP 116/76
[2018-10-31] MEDS ORDERED: HALOPERIDOL LACTATE 5 MG/ML VIAL ONE (19:26)
[2018-10-31] MEDS ORDERED: LORazepam 2 MG/ML VIAL ONE (19:26)
[2018-10-31] MEDS ORDERED: HALOPERIDOL LACTATE 5 MG/ML VIAL IM ONE (19:30)
[2018-10-31] MEDS ORDERED: LORazepam 2 MG/ML VIAL IM ONE (19:30)
[2018-10-31] MEDS: HALOPERIDOL 10 MG TABLET PO SCH (20:35)
[2018-11-01 06:06] LABS: GLUCOMETER DEV NAME(LOC) 3E.C; GLUCOSE,POINT OF CARE 96 MG/DL (70-110)
[2018-11-01] MEDS: LEVOTHYROXINE SODIUM 75 MCG TABLET PO SCH (07:00)
[2018-11-01] MEDS: MetFORMIN HCL 500 MG TABLET PO SCH ×2 (07:02→16:57)
[2018-11-01] MEDS: FERROUS SULFATE 325 MG EC TABLET PO SCH ×2 (07:02→16:57)
[2018-11-01] MEDS: BENAZEPRIL HCL 5 MG TABLET PO SCH (09:00)
[2018-11-01 09:30] VITALS: BP 100/74
[2018-11-01] MEDS: OXYBUTYNIN CHLORIDE 5 MG ER TABLET PO SCH (09:39)
[2018-11-01] MEDS: MULTIVITAMINS WITH MINERALS, THERAPEUTIC TABLET PO SCH (09:39)
[2018-11-01] MEDS: LORATADINE 10 MG TABLET PO SCH (09:39)
[2018-11-01] MEDS: MAGNESIUM OXIDE 400 MG TABLET PO SCH ×2 (09:39→16:58)
[2018-11-01] MEDS: ASCORBIC ACID 500 MG TABLET PO SCH (09:39)
[2018-11-01] MEDS: LevETIRAcetam 250 MG TABLET PO SCH ×2 (09:40→16:57)
[2018-11-01] MEDS: TOPIRAMATE 100 MG TABLET PO SCH ×3 (09:40→16:57)
[2018-11-01] MEDS: FLUoxetine HCL 20 MG CAPSULE PO SCH (09:40)
[2018-11-01] MEDS: DIVALPROEX SODIUM 500 MG DR TABLET PO SCH ×2 (09:40→20:09)
[2018-11-01] MEDS: ASPIRIN 81 MG CHEWABLE TABLET PO SCH (09:40)
[2018-11-01] MEDS: QUEtiapine FUMARATE 200 MG TABLET PO SCH ×2 (09:41→20:09)
[2018-11-01 17:26] LABS: GLUCOMETER DEV NAME(LOC) 3E.C; GLUCOSE,POINT OF CARE 129 MG/DL (70-110)
[2018-11-01] MEDS: HALOPERIDOL 10 MG TABLET PO SCH (20:08)
[2018-11-01 21:35] VITALS: BP 98/69
[2018-11-02 06:20] LABS: GLUCOMETER DEV NAME(LOC) 3E.C; GLUCOSE,POINT OF CARE 85 MG/DL (70-110)
[2018-11-02] MEDS: LEVOTHYROXINE SODIUM 75 MCG TABLET PO SCH (07:01)
[2018-11-02] MEDS: MetFORMIN HCL 500 MG TABLET PO SCH ×2 (07:01→17:22)
[2018-11-02] MEDS: FERROUS SULFATE 325 MG EC TABLET PO SCH ×2 (07:01→17:22)
[2018-11-02] MEDS: INSULIN LISPRO 100 UNITS/ML SQ PRN (07:02)
[2018-11-02] MEDS: FLUoxetine HCL 20 MG CAPSULE PO SCH (08:09)
[2018-11-02] MEDS: OXYBUTYNIN CHLORIDE 5 MG ER TABLET PO SCH (08:09)
[2018-11-02] MEDS: LevETIRAcetam 250 MG TABLET PO SCH ×2 (08:10→17:22)
[2018-11-02] MEDS: LORATADINE 10 MG TABLET PO SCH (08:10)
[2018-11-02] MEDS: MULTIVITAMINS WITH MINERALS, THERAPEUTIC TABLET PO SCH (08:10)
[2018-11-02] MEDS: MAGNESIUM OXIDE 400 MG TABLET PO SCH ×2 (08:10→17:23)
[2018-11-02] MEDS: DIVALPROEX SODIUM 500 MG DR TABLET PO SCH ×2 (08:10→21:56)
[2018-11-02] MEDS: TOPIRAMATE 100 MG TABLET PO SCH ×3 (08:10→17:22)
[2018-11-02] MEDS: ASPIRIN 81 MG CHEWABLE TABLET PO SCH (08:10)
[2018-11-02] MEDS: QUEtiapine FUMARATE 200 MG TABLET PO SCH ×2 (08:10→21:56)
[2018-11-02] MEDS: ASCORBIC ACID 500 MG TABLET PO SCH (08:10)
[2018-11-02] MEDS: BENAZEPRIL HCL 5 MG TABLET PO SCH (08:11)
[2018-11-02] MEDS: HALOPERIDOL 5 MG TABLET PO PRN ×2 (08:15→12:45)
[2018-11-02 09:40] VITALS: BP 109/83
[2018-11-02 17:02] VITALS: BP 103/71
[2018-11-02 17:04] LABS: GLUCOMETER DEV NAME(LOC) 3E.C; GLUCOSE,POINT OF CARE 86 MG/DL (70-110)
[2018-11-02] MEDS: HALOPERIDOL 10 MG TABLET PO SCH (21:56)
[2018-11-03 01:08] VITALS: BP 128/83
[2018-11-03 06:54] LABS: GLUCOMETER DEV NAME(LOC) 3E.C; GLUCOSE,POINT OF CARE 81 MG/DL (70-110)
[2018-11-03] MEDS: LEVOTHYROXINE SODIUM 75 MCG TABLET PO SCH (06:59)
[2018-11-03] MEDS: FERROUS SULFATE 325 MG EC TABLET PO SCH ×2 (06:59→16:58)
[2018-11-03] MEDS: MetFORMIN HCL 500 MG TABLET PO SCH ×2 (06:59→16:57)
[2018-11-03] MEDS: OXYBUTYNIN CHLORIDE 5 MG ER TABLET PO SCH (08:43)
[2018-11-03] MEDS: QUEtiapine FUMARATE 200 MG TABLET PO SCH ×2 (08:43→20:02)
[2018-11-03] MEDS: ASCORBIC ACID 500 MG TABLET PO SCH (08:43)
[2018-11-03] MEDS: HALOPERIDOL 5 MG TABLET PO PRN (08:43)
[2018-11-03] MEDS: FLUoxetine HCL 20 MG CAPSULE PO SCH (08:43)
[2018-11-03] MEDS: LORATADINE 10 MG TABLET PO SCH (08:43)
[2018-11-03] MEDS: MAGNESIUM OXIDE 400 MG TABLET PO SCH ×2 (08:43→16:57)
[2018-11-03] MEDS: TOPIRAMATE 100 MG TABLET PO SCH ×3 (08:43→16:58)
[2018-11-03] MEDS: BENAZEPRIL HCL 5 MG TABLET PO SCH (08:44)
[2018-11-03] MEDS: LevETIRAcetam 250 MG TABLET PO SCH ×2 (08:44→16:56)
[2018-11-03] MEDS: DIVALPROEX SODIUM 500 MG DR TABLET PO SCH ×2 (08:44→20:02)
[2018-11-03] MEDS: ASPIRIN 81 MG CHEWABLE TABLET PO SCH (08:44)
[2018-11-03] MEDS: MULTIVITAMINS WITH MINERALS, THERAPEUTIC TABLET PO SCH (08:46)
[2018-11-03 08:48] VITALS: BP 110/68
[2018-11-03 17:49] LABS: GLUCOMETER DEV NAME(LOC) 3E.C; GLUCOSE,POINT OF CARE 99 MG/DL (70-110)
[2018-11-03] MEDS: HALOPERIDOL 10 MG TABLET PO SCH (20:02)
[2018-11-04 06:29] LABS: GLUCOMETER DEV NAME(LOC) 3E.C; GLUCOSE,POINT OF CARE 71 MG/DL (70-110)
[2018-11-04] MEDS: LEVOTHYROXINE SODIUM 75 MCG TABLET PO SCH (07:09)
[2018-11-04] MEDS: MetFORMIN HCL 500 MG TABLET PO SCH ×2 (07:09→16:47)
[2018-11-04] MEDS: FERROUS SULFATE 325 MG EC TABLET PO SCH ×2 (07:09→16:47)
[2018-11-04] MEDS: QUEtiapine FUMARATE 200 MG TABLET PO SCH ×2 (07:49→20:47)
[2018-11-04] MEDS: LORATADINE 10 MG TABLET PO SCH (07:49)
[2018-11-04] MEDS: BENAZEPRIL HCL 5 MG TABLET PO SCH (07:49)
[2018-11-04] MEDS: HALOPERIDOL 5 MG TABLET PO PRN ×2 (07:49→19:49)
[2018-11-04] MEDS: MULTIVITAMINS WITH MINERALS, THERAPEUTIC TABLET PO SCH (07:49)
[2018-11-04] MEDS: FLUoxetine HCL 20 MG CAPSULE PO SCH (07:49)
[2018-11-04] MEDS: DIVALPROEX SODIUM 500 MG DR TABLET PO SCH ×2 (07:49→20:52)
[2018-11-04] MEDS: TOPIRAMATE 100 MG TABLET PO SCH ×3 (07:49→16:47)
[2018-11-04] MEDS: ASCORBIC ACID 500 MG TABLET PO SCH (07:50)
[2018-11-04] MEDS: OXYBUTYNIN CHLORIDE 5 MG ER TABLET PO SCH (07:50)
[2018-11-04] MEDS: LevETIRAcetam 250 MG TABLET PO SCH ×2 (07:50→16:46)
[2018-11-04] MEDS: ASPIRIN 81 MG CHEWABLE TABLET PO SCH (07:50)
[2018-11-04] MEDS: MAGNESIUM OXIDE 400 MG TABLET PO SCH ×2 (07:52→16:46)
[2018-11-04 11:01] VITALS: BP 143/85
[2018-11-04 15:59] LABS: GLUCOMETER DEV NAME(LOC) 3E.C; GLUCOSE,POINT OF CARE 88 MG/DL (70-110)
[2018-11-04] MEDS: HALOPERIDOL 10 MG TABLET PO SCH (20:47)
[2018-11-05 05:45] LABS: GLUCOMETER DEV NAME(LOC) 3E.C; GLUCOSE,POINT OF CARE 65 MG/DL (70-110)
[2018-11-05 06:25] LABS: GLUCOMETER DEV NAME(LOC) 3E.C; GLUCOSE,POINT OF CARE 94 MG/DL (70-110)
[2018-11-05] MEDS: LEVOTHYROXINE SODIUM 75 MCG TABLET PO SCH (07:00)
[2018-11-05] MEDS: FERROUS SULFATE 325 MG EC TABLET PO SCH ×2 (07:02→17:28)
[2018-11-05] MEDS: MetFORMIN HCL 500 MG TABLET PO SCH ×2 (07:02→17:28)
[2018-11-05] MEDS: FLUoxetine HCL 20 MG CAPSULE PO SCH (07:44)
[2018-11-05] MEDS: TOPIRAMATE 100 MG TABLET PO SCH ×3 (07:44→17:28)
[2018-11-05] MEDS: MULTIVITAMINS WITH MINERALS, THERAPEUTIC TABLET PO SCH (07:44)
[2018-11-05] MEDS: DIVALPROEX SODIUM 500 MG DR TABLET PO SCH ×2 (07:45→20:04)
[2018-11-05] MEDS: ASCORBIC ACID 500 MG TABLET PO SCH (07:45)
[2018-11-05] MEDS: LevETIRAcetam 250 MG TABLET PO SCH ×2 (07:45→17:28)
[2018-11-05] MEDS: LORATADINE 10 MG TABLET PO SCH (07:45)
[2018-11-05] MEDS: OXYBUTYNIN CHLORIDE 5 MG ER TABLET PO SCH (07:45)
[2018-11-05] MEDS: ASPIRIN 81 MG CHEWABLE TABLET PO SCH (07:45)
[2018-11-05] MEDS: BENAZEPRIL HCL 5 MG TABLET PO SCH (07:45)
[2018-11-05] MEDS: QUEtiapine FUMARATE 200 MG TABLET PO SCH ×2 (07:45→20:05)
[2018-11-05] MEDS: MAGNESIUM OXIDE 400 MG TABLET PO SCH ×2 (07:45→17:28)
[2018-11-05 12:57] VITALS: BP 122/75
[2018-11-05 17:34] LABS: GLUCOMETER DEV NAME(LOC) 3E.C; GLUCOSE,POINT OF CARE 114 MG/DL (70-110)
[2018-11-05] MEDS: HALOPERIDOL 10 MG TABLET PO SCH (20:04)
[2018-11-06 06:24] LABS: GLUCOMETER DEV NAME(LOC) 3E.C; GLUCOSE,POINT OF CARE 67 MG/DL (70-110)
[2018-11-06] MEDS: FERROUS SULFATE 325 MG EC TABLET PO SCH ×2 (06:42→17:37)
[2018-11-06] MEDS: LEVOTHYROXINE SODIUM 75 MCG TABLET PO SCH (06:42)
[2018-11-06] MEDS: MetFORMIN HCL 500 MG TABLET PO SCH ×2 (06:54→17:37)
[2018-11-06 06:59] LABS: GLUCOMETER DEV NAME(LOC) 3E.C; GLUCOSE,POINT OF CARE 86 MG/DL (70-110)
[2018-11-06] MEDS: BENAZEPRIL HCL 5 MG TABLET PO SCH (07:42)
[2018-11-06] MEDS: TOPIRAMATE 100 MG TABLET PO SCH ×3 (07:42→17:37)
[2018-11-06] MEDS: LORATADINE 10 MG TABLET PO SCH (07:42)
[2018-11-06] MEDS: FLUoxetine HCL 20 MG CAPSULE PO SCH (07:42)
[2018-11-06] MEDS: MULTIVITAMINS WITH MINERALS, THERAPEUTIC TABLET PO SCH (07:43)
[2018-11-06] MEDS: MAGNESIUM OXIDE 400 MG TABLET PO SCH ×2 (07:43→17:37)
[2018-11-06] MEDS: QUEtiapine FUMARATE 200 MG TABLET PO SCH ×2 (07:43→20:31)
[2018-11-06] MEDS: ASPIRIN 81 MG CHEWABLE TABLET PO SCH (07:43)
[2018-11-06] MEDS: LevETIRAcetam 250 MG TABLET PO SCH ×2 (07:43→17:37)
[2018-11-06] MEDS: DIVALPROEX SODIUM 500 MG DR TABLET PO SCH ×2 (07:43→20:31)
[2018-11-06] MEDS: ASCORBIC ACID 500 MG TABLET PO SCH (07:43)
[2018-11-06] MEDS: OXYBUTYNIN CHLORIDE 5 MG ER TABLET PO SCH (07:43)
[2018-11-06 10:19] VITALS: BP 100/59
[2018-11-06 17:39] LABS: GLUCOMETER DEV NAME(LOC) 3E.C; GLUCOSE,POINT OF CARE 77 MG/DL (70-110)
[2018-11-06] MEDS: HALOPERIDOL 10 MG TABLET PO SCH (20:31)
[2018-11-07 06:19] LABS: GLUCOMETER DEV NAME(LOC) 3E.C; GLUCOSE,POINT OF CARE 101 MG/DL (70-110)
[2018-11-07] MEDS: MetFORMIN HCL 500 MG TABLET PO SCH ×2 (06:43→16:36)
[2018-11-07] MEDS: LEVOTHYROXINE SODIUM 75 MCG TABLET PO SCH (06:43)
[2018-11-07] MEDS: FERROUS SULFATE 325 MG EC TABLET PO SCH ×2 (06:43→16:36)
[2018-11-07] MEDS: FLUoxetine HCL 20 MG CAPSULE PO SCH (07:56)
[2018-11-07] MEDS: BENAZEPRIL HCL 5 MG TABLET PO SCH (07:57)
[2018-11-07] MEDS: LORATADINE 10 MG TABLET PO SCH (07:57)
[2018-11-07] MEDS: LevETIRAcetam 250 MG TABLET PO SCH ×2 (07:57→16:36)
[2018-11-07] MEDS: QUEtiapine FUMARATE 200 MG TABLET PO SCH ×2 (07:57→20:05)
[2018-11-07] MEDS: MULTIVITAMINS WITH MINERALS, THERAPEUTIC TABLET PO SCH (07:57)
[2018-11-07] MEDS: TOPIRAMATE 100 MG TABLET PO SCH ×3 (07:57→16:36)
[2018-11-07] MEDS: ASPIRIN 81 MG CHEWABLE TABLET PO SCH (07:57)
[2018-11-07] MEDS: ASCORBIC ACID 500 MG TABLET PO SCH (07:57)
[2018-11-07] MEDS: OXYBUTYNIN CHLORIDE 5 MG ER TABLET PO SCH (07:57)
[2018-11-07] MEDS: MAGNESIUM OXIDE 400 MG TABLET PO SCH ×2 (07:57→16:36)
[2018-11-07] MEDS: DIVALPROEX SODIUM 500 MG DR TABLET PO SCH ×2 (07:57→20:05)
[2018-11-07 08:00] VITALS: BP 169/94
[2018-11-07] MEDS: HALOPERIDOL 5 MG TABLET PO PRN (08:00)
[2018-11-07 16:00] VITALS: BP 108/60
[2018-11-07 16:44] LABS: GLUCOMETER DEV NAME(LOC) 3E.C; GLUCOSE,POINT OF CARE 117 MG/DL (70-110)
[2018-11-07] MEDS: HALOPERIDOL 10 MG TABLET PO SCH (20:05)
[2018-11-08] MEDS: FERROUS SULFATE 325 MG EC TABLET PO SCH ×2 (06:48→17:16)
[2018-11-08] MEDS: MetFORMIN HCL 500 MG TABLET PO SCH ×2 (06:48→17:16)
[2018-11-08] MEDS: LEVOTHYROXINE SODIUM 75 MCG TABLET PO SCH (06:48)
[2018-11-08 07:04] LABS: GLUCOMETER DEV NAME(LOC) 3E.C; GLUCOSE,POINT OF CARE 71 MG/DL (70-110)
[2018-11-08] MEDS: LevETIRAcetam 250 MG TABLET PO SCH ×2 (08:09→17:16)
[2018-11-08] MEDS: FLUoxetine HCL 20 MG CAPSULE PO SCH (08:10)
[2018-11-08] MEDS: ASPIRIN 81 MG CHEWABLE TABLET PO SCH (08:10)
[2018-11-08] MEDS: OXYBUTYNIN CHLORIDE 5 MG ER TABLET PO SCH (08:10)
[2018-11-08] MEDS: MAGNESIUM OXIDE 400 MG TABLET PO SCH ×2 (08:10→17:16)
[2018-11-08] MEDS: QUEtiapine FUMARATE 200 MG TABLET PO SCH ×2 (08:10→20:29)
[2018-11-08] MEDS: ASCORBIC ACID 500 MG TABLET PO SCH (08:10)
[2018-11-08] MEDS: LORATADINE 10 MG TABLET PO SCH (08:10)
[2018-11-08] MEDS: MULTIVITAMINS WITH MINERALS, THERAPEUTIC TABLET PO SCH (08:10)
[2018-11-08] MEDS: BENAZEPRIL HCL 5 MG TABLET PO SCH (08:10)
[2018-11-08] MEDS: DIVALPROEX SODIUM 500 MG DR TABLET PO SCH ×2 (08:10→20:29)
[2018-11-08] MEDS: TOPIRAMATE 100 MG TABLET PO SCH ×3 (08:10→17:16)
[2018-11-08] MEDS: HALOPERIDOL 5 MG TABLET PO PRN (08:45)
[2018-11-08 16:00] VITALS: BP 103/72
[2018-11-08] MEDS: INSULIN LISPRO 100 UNITS/ML SQ PRN (18:02)
[2018-11-08 18:04] LABS: GLUCOMETER DEV NAME(LOC) 3E.C; GLUCOSE,POINT OF CARE 172 MG/DL (70-110)
[2018-11-08] MEDS: HALOPERIDOL 10 MG TABLET PO SCH (20:29)
[2018-11-09 06:19] LABS: GLUCOMETER DEV NAME(LOC) 3E.C; GLUCOSE,POINT OF CARE 66 MG/DL (70-110)
[2018-11-09 06:49] LABS: GLUCOMETER DEV NAME(LOC) 3E.C; GLUCOSE,POINT OF CARE 104 MG/DL (70-110)
[2018-11-09] MEDS: FERROUS SULFATE 325 MG EC TABLET PO SCH ×2 (07:05→17:37)
[2018-11-09] MEDS: LEVOTHYROXINE SODIUM 75 MCG TABLET PO SCH (07:05)
[2018-11-09] MEDS: MetFORMIN HCL 500 MG TABLET PO SCH ×2 (07:05→17:38)
[2018-11-09] MEDS: QUEtiapine FUMARATE 200 MG TABLET PO SCH ×2 (07:44→20:19)
[2018-11-09] MEDS: DIVALPROEX SODIUM 500 MG DR TABLET PO SCH ×2 (07:45→20:19)
[2018-11-09] MEDS: BENAZEPRIL HCL 5 MG TABLET PO SCH (07:45)
[2018-11-09] MEDS: TOPIRAMATE 100 MG TABLET PO SCH ×3 (07:45→17:38)
[2018-11-09] MEDS: OXYBUTYNIN CHLORIDE 5 MG ER TABLET PO SCH (07:45)
[2018-11-09] MEDS: OMEPRAZOLE 20 MG CAPSULE PO PRN (07:45)
[2018-11-09] MEDS: LORATADINE 10 MG TABLET PO SCH (07:45)
[2018-11-09] MEDS: LevETIRAcetam 250 MG TABLET PO SCH ×2 (07:45→17:37)
[2018-11-09] MEDS: MULTIVITAMINS WITH MINERALS, THERAPEUTIC TABLET PO SCH (07:45)
[2018-11-09] MEDS: HALOPERIDOL 5 MG TABLET PO PRN ×2 (07:45→12:21)
[2018-11-09] MEDS: FLUoxetine HCL 20 MG CAPSULE PO SCH (07:45)
[2018-11-09] MEDS: ASPIRIN 81 MG CHEWABLE TABLET PO SCH (07:45)
[2018-11-09] MEDS: ASCORBIC ACID 500 MG TABLET PO SCH (07:46)
[2018-11-09] MEDS: MAGNESIUM OXIDE 400 MG TABLET PO SCH ×2 (07:47→17:37)
[2018-11-09 08:00] VITALS: BP 100/73
[2018-11-09] MEDS: DOCUSATE SODIUM 100 MG CAPSULE PO PRN (11:02)
[2018-11-09] MEDS: MAGNESIUM HYDROXIDE SUSPENSION 30 ML UDCUP PO PRN (11:03)
[2018-11-09 16:12] VITALS: BP 113/81
[2018-11-09 17:59] LABS: GLUCOMETER DEV NAME(LOC) 3E.C; GLUCOSE,POINT OF CARE 75 MG/DL (70-110)
[2018-11-09] MEDS: HALOPERIDOL 10 MG TABLET PO SCH (20:19)
[2018-11-10 06:15] LABS: GLUCOMETER DEV NAME(LOC) 3E.C; GLUCOSE,POINT OF CARE 143 MG/DL (70-110)
[2018-11-10] MEDS: FERROUS SULFATE 325 MG EC TABLET PO SCH ×2 (07:01→17:28)
[2018-11-10] MEDS: MetFORMIN HCL 500 MG TABLET PO SCH ×2 (07:01→17:28)
[2018-11-10] MEDS: LEVOTHYROXINE SODIUM 75 MCG TABLET PO SCH (07:01)
[2018-11-10] MEDS: INSULIN LISPRO 100 UNITS/ML SQ PRN (07:07)
[2018-11-10] MEDS: MAGNESIUM OXIDE 400 MG TABLET PO SCH ×2 (08:13→17:30)
[2018-11-10] MEDS: QUEtiapine FUMARATE 200 MG TABLET PO SCH ×2 (08:13→20:20)
[2018-11-10] MEDS: FLUoxetine HCL 20 MG CAPSULE PO SCH (08:13)
[2018-11-10] MEDS: BENAZEPRIL HCL 5 MG TABLET PO SCH (08:13)
[2018-11-10] MEDS: LORATADINE 10 MG TABLET PO SCH (08:13)
[2018-11-10] MEDS: LevETIRAcetam 250 MG TABLET PO SCH ×2 (08:13→17:28)
[2018-11-10] MEDS: TOPIRAMATE 100 MG TABLET PO SCH ×3 (08:13→17:28)
[2018-11-10] MEDS: ASCORBIC ACID 500 MG TABLET PO SCH (08:13)
[2018-11-10] MEDS: ASPIRIN 81 MG CHEWABLE TABLET PO SCH (08:13)
[2018-11-10] MEDS: MULTIVITAMINS WITH MINERALS, THERAPEUTIC TABLET PO SCH (08:14)
[2018-11-10] MEDS: DIVALPROEX SODIUM 500 MG DR TABLET PO SCH ×2 (08:14→20:20)
[2018-11-10] MEDS: OXYBUTYNIN CHLORIDE 5 MG ER TABLET PO SCH (08:14)
[2018-11-10 10:09] VITALS: BP 97/67
[2018-11-10 16:59] LABS: GLUCOMETER DEV NAME(LOC) 3E.C; GLUCOSE,POINT OF CARE 89 MG/DL (70-110)
[2018-11-10 17:52] VITALS: BP 109/71
[2018-11-10] MEDS: HALOPERIDOL 10 MG TABLET PO SCH (20:20)
[2018-11-11 06:19] LABS: GLUCOMETER DEV NAME(LOC) 3E.C; GLUCOSE,POINT OF CARE 63 MG/DL (70-110)
[2018-11-11] MEDS: MetFORMIN HCL 500 MG TABLET PO SCH (06:49)
[2018-11-11] MEDS: LEVOTHYROXINE SODIUM 75 MCG TABLET PO SCH (06:49)
[2018-11-11] MEDS: FERROUS SULFATE 325 MG EC TABLET PO SCH ×2 (06:49→17:25)
[2018-11-11 06:54] LABS: GLUCOMETER DEV NAME(LOC) 3E.C; GLUCOSE,POINT OF CARE 80 MG/DL (70-110)
[2018-11-11 08:00] VITALS: BP 109/79
[2018-11-11] MEDS: MAGNESIUM HYDROXIDE SUSPENSION 30 ML UDCUP PO PRN (08:09)
[2018-11-11] MEDS: OXYBUTYNIN CHLORIDE 5 MG ER TABLET PO SCH (08:21)
[2018-11-11] MEDS: MULTIVITAMINS WITH MINERALS, THERAPEUTIC TABLET PO SCH (08:21)
[2018-11-11] MEDS: HALOPERIDOL 5 MG TABLET PO PRN (08:21)
[2018-11-11] MEDS: TOPIRAMATE 100 MG TABLET PO SCH ×3 (08:21→17:25)
[2018-11-11] MEDS: ASCORBIC ACID 500 MG TABLET PO SCH (08:22)
[2018-11-11] MEDS: LORATADINE 10 MG TABLET PO SCH (08:22)
[2018-11-11] MEDS: FLUoxetine HCL 20 MG CAPSULE PO SCH (08:22)
[2018-11-11] MEDS: ASPIRIN 81 MG CHEWABLE TABLET PO SCH (08:22)
[2018-11-11] MEDS: QUEtiapine FUMARATE 200 MG TABLET PO SCH ×2 (08:22→21:20)
[2018-11-11] MEDS: BENAZEPRIL HCL 5 MG TABLET PO SCH (08:22)
[2018-11-11] MEDS: DIVALPROEX SODIUM 500 MG DR TABLET PO SCH ×2 (08:22→21:20)
[2018-11-11] MEDS: LevETIRAcetam 250 MG TABLET PO SCH ×2 (08:23→17:25)
[2018-11-11] MEDS: MAGNESIUM OXIDE 400 MG TABLET PO SCH ×2 (08:24→17:25)
[2018-11-11 17:39] LABS: GLUCOMETER DEV NAME(LOC) 3E.C; GLUCOSE,POINT OF CARE 99 MG/DL (70-110)
[2018-11-11 19:26] VITALS: BP 115/79
[2018-11-11] MEDS: HALOPERIDOL 10 MG TABLET PO SCH (21:20)
[2018-11-12] MEDS: LEVOTHYROXINE SODIUM 75 MCG TABLET PO SCH (07:00)
[2018-11-12] MEDS: FERROUS SULFATE 325 MG EC TABLET PO SCH ×2 (07:01→17:11)
[2018-11-12] MEDS: MAGNESIUM OXIDE 400 MG TABLET PO SCH ×2 (08:25→17:11)
[2018-11-12] MEDS: LevETIRAcetam 250 MG TABLET PO SCH ×2 (08:26→17:11)
[2018-11-12] MEDS: ASCORBIC ACID 500 MG TABLET PO SCH (08:26)
[2018-11-12] MEDS: QUEtiapine FUMARATE 200 MG TABLET PO SCH ×2 (08:26→20:21)
[2018-11-12] MEDS: TOPIRAMATE 100 MG TABLET PO SCH ×3 (08:26→17:11)
[2018-11-12] MEDS: DIVALPROEX SODIUM 500 MG DR TABLET PO SCH ×2 (08:26→20:22)
[2018-11-12] MEDS: BENAZEPRIL HCL 5 MG TABLET PO SCH (08:26)
[2018-11-12] MEDS: LORATADINE 10 MG TABLET PO SCH (08:26)
[2018-11-12] MEDS: OXYBUTYNIN CHLORIDE 5 MG ER TABLET PO SCH (08:26)
[2018-11-12] MEDS: ASPIRIN 81 MG CHEWABLE TABLET PO SCH (08:26)
[2018-11-12] MEDS: MULTIVITAMINS WITH MINERALS, THERAPEUTIC TABLET PO SCH (08:26)
[2018-11-12] MEDS: HALOPERIDOL 5 MG TABLET PO PRN (08:26)
[2018-11-12] MEDS: FLUoxetine HCL 20 MG CAPSULE PO SCH (08:26)
[2018-11-12 17:14] LABS: GLUCOMETER DEV NAME(LOC) 3E.C; GLUCOSE,POINT OF CARE 135 MG/DL (70-110)
[2018-11-12] MEDS: HALOPERIDOL 10 MG TABLET PO SCH (20:22)
[2018-11-13 06:14] LABS: GLUCOMETER DEV NAME(LOC) 3E.C; GLUCOSE,POINT OF CARE 81 MG/DL (70-110)
[2018-11-13] MEDS: FERROUS SULFATE 325 MG EC TABLET PO SCH ×2 (06:39→16:34)
[2018-11-13] MEDS: LEVOTHYROXINE SODIUM 75 MCG TABLET PO SCH (06:39)
[2018-11-13 08:00] VITALS: BP 122/86
[2018-11-13] MEDS: MAGNESIUM OXIDE 400 MG TABLET PO SCH ×2 (08:13→16:34)
[2018-11-13] MEDS: OXYBUTYNIN CHLORIDE 5 MG ER TABLET PO SCH (08:13)
[2018-11-13] MEDS: LORATADINE 10 MG TABLET PO SCH (08:14)
[2018-11-13] MEDS: TOPIRAMATE 100 MG TABLET PO SCH ×3 (08:14→16:34)
[2018-11-13] MEDS: DIVALPROEX SODIUM 500 MG DR TABLET PO SCH ×2 (08:14→20:02)
[2018-11-13] MEDS: MULTIVITAMINS WITH MINERALS, THERAPEUTIC TABLET PO SCH (08:15)
[2018-11-13] MEDS: LevETIRAcetam 250 MG TABLET PO SCH ×2 (08:15→16:34)
[2018-11-13] MEDS: ASCORBIC ACID 500 MG TABLET PO SCH (08:15)
[2018-11-13] MEDS: ASPIRIN 81 MG CHEWABLE TABLET PO SCH (08:16)
[2018-11-13] MEDS: FLUoxetine HCL 20 MG CAPSULE PO SCH (08:16)
[2018-11-13] MEDS: BENAZEPRIL HCL 5 MG TABLET PO SCH (08:16)
[2018-11-13] MEDS: QUEtiapine FUMARATE 200 MG TABLET PO SCH ×2 (08:25→20:03)
[2018-11-13 16:24] VITALS: BP 129/87
[2018-11-13 16:40] LABS: GLUCOMETER DEV NAME(LOC) 3E.C; GLUCOSE,POINT OF CARE 106 MG/DL (70-110)
[2018-11-13] MEDS: HALOPERIDOL 10 MG TABLET PO SCH (20:02)
[2018-11-14 06:25] LABS: GLUCOMETER DEV NAME(LOC) 3E.C; GLUCOSE,POINT OF CARE 92 MG/DL (70-110)
[2018-11-14] MEDS: LEVOTHYROXINE SODIUM 75 MCG TABLET PO SCH (06:42)
[2018-11-14] MEDS: FERROUS SULFATE 325 MG EC TABLET PO SCH ×2 (06:42→17:30)
[2018-11-14] MEDS: LORATADINE 10 MG TABLET PO SCH (08:35)
[2018-11-14] MEDS: BENAZEPRIL HCL 5 MG TABLET PO SCH (08:36)
[2018-11-14] MEDS: DOCUSATE SODIUM 100 MG CAPSULE PO PRN (08:36)
[2018-11-14] MEDS: MULTIVITAMINS WITH MINERALS, THERAPEUTIC TABLET PO SCH (08:36)
[2018-11-14] MEDS: MAGNESIUM OXIDE 400 MG TABLET PO SCH ×2 (08:36→17:30)
[2018-11-14] MEDS: ASPIRIN 81 MG CHEWABLE TABLET PO SCH (08:36)
[2018-11-14] MEDS: QUEtiapine FUMARATE 200 MG TABLET PO SCH ×2 (08:36→21:04)
[2018-11-14] MEDS: OXYBUTYNIN CHLORIDE 5 MG ER TABLET PO SCH (08:36)
[2018-11-14] MEDS: DIVALPROEX SODIUM 500 MG DR TABLET PO SCH ×2 (08:36→21:04)
[2018-11-14] MEDS: LevETIRAcetam 250 MG TABLET PO SCH ×2 (08:37→17:30)
[2018-11-14] MEDS: TOPIRAMATE 100 MG TABLET PO SCH ×3 (08:37→17:30)
[2018-11-14] MEDS: ASCORBIC ACID 500 MG TABLET PO SCH (08:37)
[2018-11-14] MEDS: HALOPERIDOL 5 MG TABLET PO PRN (08:37)
[2018-11-14] MEDS: FLUoxetine HCL 20 MG CAPSULE PO SCH (08:37)
[2018-11-14 17:44] LABS: GLUCOMETER DEV NAME(LOC) 3E.C; GLUCOSE,POINT OF CARE 82 MG/DL (70-110)
[2018-11-14] MEDS: HALOPERIDOL 10 MG TABLET PO SCH (21:04)
[2018-11-15 01:26] VITALS: BP 119/67
[2018-11-15 06:24] LABS: GLUCOMETER DEV NAME(LOC) 3E.C; GLUCOSE,POINT OF CARE 79 MG/DL (70-110)
[2018-11-15] MEDS: FERROUS SULFATE 325 MG EC TABLET PO SCH ×2 (07:07→16:50)
[2018-11-15] MEDS: LEVOTHYROXINE SODIUM 75 MCG TABLET PO SCH (07:07)
[2018-11-15] MEDS: QUEtiapine FUMARATE 200 MG TABLET PO SCH ×2 (08:06→20:15)
[2018-11-15] MEDS: DIVALPROEX SODIUM 500 MG DR TABLET PO SCH ×2 (08:06→20:15)
[2018-11-15] MEDS: OXYBUTYNIN CHLORIDE 5 MG ER TABLET PO SCH (08:06)
[2018-11-15] MEDS: FLUoxetine HCL 20 MG CAPSULE PO SCH (08:06)
[2018-11-15] MEDS: TOPIRAMATE 100 MG TABLET PO SCH ×3 (08:06→16:49)
[2018-11-15] MEDS: MAGNESIUM OXIDE 400 MG TABLET PO SCH ×2 (08:06→16:49)
[2018-11-15] MEDS: ASPIRIN 81 MG CHEWABLE TABLET PO SCH (08:06)
[2018-11-15] MEDS: LORATADINE 10 MG TABLET PO SCH (08:06)
[2018-11-15] MEDS: LevETIRAcetam 250 MG TABLET PO SCH ×2 (08:07→16:49)
[2018-11-15] MEDS: BENAZEPRIL HCL 5 MG TABLET PO SCH (08:07)
[2018-11-15] MEDS: MULTIVITAMINS WITH MINERALS, THERAPEUTIC TABLET PO SCH (08:07)
[2018-11-15] MEDS: ASCORBIC ACID 500 MG TABLET PO SCH (08:07)
[2018-11-15 09:49] VITALS: BP 114/71
[2018-11-15 17:39] LABS: GLUCOMETER DEV NAME(LOC) 3E.C; GLUCOSE,POINT OF CARE 87 MG/DL (70-110)
[2018-11-15 20:13] VITALS: BP 112/79
[2018-11-15] MEDS: HALOPERIDOL 10 MG TABLET PO SCH (20:15)
[2018-11-16] MEDS: FERROUS SULFATE 325 MG EC TABLET PO SCH ×2 (06:44→17:50)
[2018-11-16] MEDS: LEVOTHYROXINE SODIUM 75 MCG TABLET PO SCH (06:44)
[2018-11-16 08:00] VITALS: BP 108/51
[2018-11-16] MEDS: ASCORBIC ACID 500 MG TABLET PO SCH (08:12)
[2018-11-16] MEDS: BENAZEPRIL HCL 5 MG TABLET PO SCH (08:12)
[2018-11-16] MEDS: MULTIVITAMINS WITH MINERALS, THERAPEUTIC TABLET PO SCH (08:12)
[2018-11-16] MEDS: LORATADINE 10 MG TABLET PO SCH (08:12)
[2018-11-16] MEDS: HALOPERIDOL 5 MG TABLET PO PRN (08:12)
[2018-11-16] MEDS: ASPIRIN 81 MG CHEWABLE TABLET PO SCH (08:12)
[2018-11-16] MEDS: LevETIRAcetam 250 MG TABLET PO SCH ×2 (08:13→17:49)
[2018-11-16] MEDS: MAGNESIUM OXIDE 400 MG TABLET PO SCH ×2 (08:13→17:50)
[2018-11-16] MEDS: DIVALPROEX SODIUM 500 MG DR TABLET PO SCH ×2 (08:13→20:28)
[2018-11-16] MEDS: TOPIRAMATE 100 MG TABLET PO SCH ×3 (08:13→17:50)
[2018-11-16] MEDS: QUEtiapine FUMARATE 200 MG TABLET PO SCH ×2 (08:13→20:28)
[2018-11-16] MEDS: FLUoxetine HCL 20 MG CAPSULE PO SCH (08:13)
[2018-11-16] MEDS: OXYBUTYNIN CHLORIDE 5 MG ER TABLET PO SCH (08:14)
[2018-11-16 18:04] LABS: GLUCOMETER DEV NAME(LOC) 3E.C; GLUCOSE,POINT OF CARE 102 MG/DL (70-110)
[2018-11-16] MEDS: HALOPERIDOL 10 MG TABLET PO SCH (20:27)
[2018-11-17] MEDS: LEVOTHYROXINE SODIUM 75 MCG TABLET PO SCH (06:56)
[2018-11-17] MEDS: FERROUS SULFATE 325 MG EC TABLET PO SCH ×2 (06:57→16:53)
[2018-11-17 08:00] VITALS: BP 122/96
[2018-11-17] MEDS: HALOPERIDOL 5 MG TABLET PO PRN (08:32)
[2018-11-17] MEDS: MAGNESIUM OXIDE 400 MG TABLET PO SCH ×2 (08:32→16:53)
[2018-11-17] MEDS: FLUoxetine HCL 20 MG CAPSULE PO SCH (08:32)
[2018-11-17] MEDS: TOPIRAMATE 100 MG TABLET PO SCH ×3 (08:33→16:53)
[2018-11-17] MEDS: OXYBUTYNIN CHLORIDE 5 MG ER TABLET PO SCH (08:33)
[2018-11-17] MEDS: LORATADINE 10 MG TABLET PO SCH (08:33)
[2018-11-17] MEDS: QUEtiapine FUMARATE 200 MG TABLET PO SCH ×2 (08:33→20:29)
[2018-11-17] MEDS: BENAZEPRIL HCL 5 MG TABLET PO SCH (08:33)
[2018-11-17] MEDS: ASPIRIN 81 MG CHEWABLE TABLET PO SCH (08:33)
[2018-11-17] MEDS: ASCORBIC ACID 500 MG TABLET PO SCH (08:33)
[2018-11-17] MEDS: LevETIRAcetam 250 MG TABLET PO SCH ×2 (08:33→16:53)
[2018-11-17] MEDS: MULTIVITAMINS WITH MINERALS, THERAPEUTIC TABLET PO SCH (08:33)
[2018-11-17] MEDS: DIVALPROEX SODIUM 500 MG DR TABLET PO SCH ×2 (08:33→20:29)
[2018-11-17 16:03] VITALS: BP 119/76
[2018-11-17 17:24] LABS: GLUCOMETER DEV NAME(LOC) 3E.C; GLUCOSE,POINT OF CARE 87 MG/DL (70-110)
[2018-11-17] MEDS: HALOPERIDOL 10 MG TABLET PO SCH (20:29)
[2018-11-18] MEDS: LEVOTHYROXINE SODIUM 75 MCG TABLET PO SCH (06:35)
[2018-11-18] MEDS: FERROUS SULFATE 325 MG EC TABLET PO SCH ×2 (06:35→17:08)
[2018-11-18] MEDS: LevETIRAcetam 250 MG TABLET PO SCH ×2 (07:52→17:08)
[2018-11-18] MEDS: ASCORBIC ACID 500 MG TABLET PO SCH (07:52)
[2018-11-18] MEDS: DIVALPROEX SODIUM 500 MG DR TABLET PO SCH ×2 (07:52→20:11)
[2018-11-18] MEDS: FLUoxetine HCL 20 MG CAPSULE PO SCH (07:53)
[2018-11-18] MEDS: QUEtiapine FUMARATE 200 MG TABLET PO SCH ×2 (07:53→20:11)
[2018-11-18] MEDS: ASPIRIN 81 MG CHEWABLE TABLET PO SCH (07:53)
[2018-11-18] MEDS: TOPIRAMATE 100 MG TABLET PO SCH ×3 (07:54→17:08)
[2018-11-18] MEDS: MULTIVITAMINS WITH MINERALS, THERAPEUTIC TABLET PO SCH (07:54)
[2018-11-18] MEDS: MAGNESIUM OXIDE 400 MG TABLET PO SCH ×2 (07:54→17:08)
[2018-11-18] MEDS: LORATADINE 10 MG TABLET PO SCH (07:55)
[2018-11-18] MEDS: OXYBUTYNIN CHLORIDE 5 MG ER TABLET PO SCH (07:55)
[2018-11-18] MEDS: BENAZEPRIL HCL 5 MG TABLET PO SCH (07:55)
[2018-11-18] MEDS: INSULIN LISPRO 100 UNITS/ML SQ PRN (17:32)
[2018-11-18 17:35] LABS: GLUCOMETER DEV NAME(LOC) 3E.C; GLUCOSE,POINT OF CARE 142 MG/DL (70-110)
[2018-11-18] MEDS: HALOPERIDOL 10 MG TABLET PO SCH (20:11)
[2018-11-19] MEDS: FERROUS SULFATE 325 MG EC TABLET PO SCH ×2 (06:44→16:35)
[2018-11-19] MEDS: LEVOTHYROXINE SODIUM 75 MCG TABLET PO SCH (06:47)
[2018-11-19 08:00] VITALS: BP 116/73
[2018-11-19] MEDS: FLUoxetine HCL 20 MG CAPSULE PO SCH (08:44)
[2018-11-19] MEDS: LORATADINE 10 MG TABLET PO SCH (08:45)
[2018-11-19] MEDS: QUEtiapine FUMARATE 200 MG TABLET PO SCH ×2 (08:45→20:10)
[2018-11-19] MEDS: HALOPERIDOL 5 MG TABLET PO PRN (08:45)
[2018-11-19] MEDS: MULTIVITAMINS WITH MINERALS, THERAPEUTIC TABLET PO SCH (08:45)
[2018-11-19] MEDS: OXYBUTYNIN CHLORIDE 5 MG ER TABLET PO SCH (08:46)
[2018-11-19] MEDS: ASCORBIC ACID 500 MG TABLET PO SCH (08:46)
[2018-11-19] MEDS: TOPIRAMATE 100 MG TABLET PO SCH ×3 (08:46→16:35)
[2018-11-19] MEDS: DIVALPROEX SODIUM 500 MG DR TABLET PO SCH ×2 (08:46→20:10)
[2018-11-19] MEDS: MAGNESIUM OXIDE 400 MG TABLET PO SCH ×2 (08:46→16:35)
[2018-11-19] MEDS: BENAZEPRIL HCL 5 MG TABLET PO SCH (08:47)
[2018-11-19] MEDS: ASPIRIN 81 MG CHEWABLE TABLET PO SCH (08:47)
[2018-11-19] MEDS: LevETIRAcetam 250 MG TABLET PO SCH ×2 (08:47→16:33)
[2018-11-19 17:54] LABS: GLUCOMETER DEV NAME(LOC) 3E.C; GLUCOSE,POINT OF CARE 99 MG/DL (70-110)
[2018-11-19] MEDS: HALOPERIDOL 10 MG TABLET PO SCH (20:10)
[2018-11-20 06:04] VITALS: BP 104/68
[2018-11-20 06:24] LABS: GLUCOMETER DEV NAME(LOC) 3E.C; GLUCOSE,POINT OF CARE 106 MG/DL (70-110)
[2018-11-20] MEDS: LEVOTHYROXINE SODIUM 75 MCG TABLET PO SCH (06:35)
[2018-11-20] MEDS: FERROUS SULFATE 325 MG EC TABLET PO SCH ×2 (06:35→16:30)
[2018-11-20] MEDS: FLUoxetine HCL 20 MG CAPSULE PO SCH (08:05)
[2018-11-20] MEDS: DIVALPROEX SODIUM 500 MG DR TABLET PO SCH ×2 (08:05→20:49)
[2018-11-20] MEDS: MULTIVITAMINS WITH MINERALS, THERAPEUTIC TABLET PO SCH (08:06)
[2018-11-20] MEDS: BENAZEPRIL HCL 5 MG TABLET PO SCH (08:06)
[2018-11-20] MEDS: LevETIRAcetam 250 MG TABLET PO SCH ×2 (08:06→16:30)
[2018-11-20] MEDS: MAGNESIUM OXIDE 400 MG TABLET PO SCH ×2 (08:06→16:30)
[2018-11-20] MEDS: LORATADINE 10 MG TABLET PO SCH (08:06)
[2018-11-20] MEDS: TOPIRAMATE 100 MG TABLET PO SCH ×3 (08:06→16:30)
[2018-11-20] MEDS: OXYBUTYNIN CHLORIDE 5 MG ER TABLET PO SCH (08:06)
[2018-11-20] MEDS: ASPIRIN 81 MG CHEWABLE TABLET PO SCH (08:06)
[2018-11-20] MEDS: QUEtiapine FUMARATE 200 MG TABLET PO SCH ×2 (08:06→20:48)
[2018-11-20] MEDS: ASCORBIC ACID 500 MG TABLET PO SCH (08:06)
[2018-11-20] MEDS: HALOPERIDOL 5 MG TABLET PO PRN (08:07)
[2018-11-20 08:30] VITALS: BP 118/75
[2018-11-20 09:04] LABS: GLUCOMETER DEV NAME(LOC) 3E.C; GLUCOSE,POINT OF CARE 105 MG/DL (70-110)
[2018-11-20 09:09] VITALS: BP 118/73
[2018-11-20 16:10] VITALS: BP 115/76
[2018-11-20 17:10] LABS: GLUCOMETER DEV NAME(LOC) 3E.C; GLUCOSE,POINT OF CARE 123 MG/DL (70-110)
[2018-11-20] MEDS: HALOPERIDOL 10 MG TABLET PO SCH (20:49)
[2018-11-21 05:50] LABS: GLUCOMETER DEV NAME(LOC) 3E.C; GLUCOSE,POINT OF CARE 86 MG/DL (70-110)
[2018-11-21] MEDS: LEVOTHYROXINE SODIUM 75 MCG TABLET PO SCH (06:44)
[2018-11-21] MEDS: INSULIN LISPRO 100 UNITS/ML SQ PRN (06:44)
[2018-11-21] MEDS: FERROUS SULFATE 325 MG EC TABLET PO SCH ×2 (07:30→17:24)
[2018-11-21 08:00] VITALS: BP 101/76
[2018-11-21] MEDS: FLUoxetine HCL 20 MG CAPSULE PO SCH (08:12)
[2018-11-21] MEDS: DIVALPROEX SODIUM 500 MG DR TABLET PO SCH ×2 (08:12→20:02)
[2018-11-21] MEDS: ASPIRIN 81 MG CHEWABLE TABLET PO SCH (08:12)
[2018-11-21] MEDS: MAGNESIUM OXIDE 400 MG TABLET PO SCH ×2 (08:12→17:24)
[2018-11-21] MEDS: TOPIRAMATE 100 MG TABLET PO SCH ×3 (08:12→17:24)
[2018-11-21] MEDS: OXYBUTYNIN CHLORIDE 5 MG ER TABLET PO SCH (08:13)
[2018-11-21] MEDS: LORATADINE 10 MG TABLET PO SCH (08:13)
[2018-11-21] MEDS: LevETIRAcetam 250 MG TABLET PO SCH ×2 (08:13→17:24)
[2018-11-21] MEDS: HALOPERIDOL 5 MG TABLET PO PRN (08:13)
[2018-11-21] MEDS: ASCORBIC ACID 500 MG TABLET PO SCH (08:13)
[2018-11-21] MEDS: QUEtiapine FUMARATE 200 MG TABLET PO SCH ×2 (08:13→20:02)
[2018-11-21] MEDS: MULTIVITAMINS WITH MINERALS, THERAPEUTIC TABLET PO SCH (08:14)
[2018-11-21] MEDS: BENAZEPRIL HCL 5 MG TABLET PO SCH (08:14)
[2018-11-21 17:36] LABS: GLUCOMETER DEV NAME(LOC) 3E.C; GLUCOSE,POINT OF CARE 103 MG/DL (70-110)
[2018-11-21] MEDS: HALOPERIDOL 10 MG TABLET PO SCH (20:02)
[2018-11-21 21:05] VITALS: BP 109/76
[2018-11-22 05:59] LABS: GLUCOMETER DEV NAME(LOC) 3E.C; GLUCOSE,POINT OF CARE 88 MG/DL (70-110)
[2018-11-22] MEDS: LEVOTHYROXINE SODIUM 75 MCG TABLET PO SCH (06:35)
[2018-11-22] MEDS: FERROUS SULFATE 325 MG EC TABLET PO SCH ×2 (06:35→16:59)
[2018-11-22] MEDS: ASCORBIC ACID 500 MG TABLET PO SCH (08:54)
[2018-11-22] MEDS: FLUoxetine HCL 20 MG CAPSULE PO SCH (08:54)
[2018-11-22] MEDS: LevETIRAcetam 250 MG TABLET PO SCH ×2 (08:54→16:59)
[2018-11-22] MEDS: DIVALPROEX SODIUM 500 MG DR TABLET PO SCH ×2 (08:55→20:10)
[2018-11-22] MEDS: TOPIRAMATE 100 MG TABLET PO SCH ×3 (08:55→16:59)
[2018-11-22] MEDS: QUEtiapine FUMARATE 200 MG TABLET PO SCH ×2 (08:55→20:09)
[2018-11-22] MEDS: ASPIRIN 81 MG CHEWABLE TABLET PO SCH (08:55)
[2018-11-22] MEDS: BENAZEPRIL HCL 5 MG TABLET PO SCH (08:56)
[2018-11-22] MEDS: MAGNESIUM OXIDE 400 MG TABLET PO SCH ×2 (08:56→16:59)
[2018-11-22] MEDS: OXYBUTYNIN CHLORIDE 5 MG ER TABLET PO SCH (08:56)
[2018-11-22] MEDS: MULTIVITAMINS WITH MINERALS, THERAPEUTIC TABLET PO SCH (08:56)
[2018-11-22] MEDS: HALOPERIDOL 5 MG TABLET PO PRN (08:57)
[2018-11-22] MEDS: LORATADINE 10 MG TABLET PO SCH (08:57)
[2018-11-22 10:49] VITALS: BP 115/75
[2018-11-22 17:30] LABS: GLUCOMETER DEV NAME(LOC) 3E.C; GLUCOSE,POINT OF CARE 91 MG/DL (70-110)
[2018-11-22] MEDS: HALOPERIDOL 10 MG TABLET PO SCH (20:10)
[2018-11-22 20:49] VITALS: BP 112/72
[2018-11-23 06:45] LABS: GLUCOMETER DEV NAME(LOC) 3E.C; GLUCOSE,POINT OF CARE 82 MG/DL (70-110)
[2018-11-23] MEDS: LEVOTHYROXINE SODIUM 75 MCG TABLET PO SCH (06:52)
[2018-11-23] MEDS: FERROUS SULFATE 325 MG EC TABLET PO SCH ×2 (06:52→17:30)
[2018-11-23] MEDS: BENAZEPRIL HCL 5 MG TABLET PO SCH (07:50)
[2018-11-23] MEDS: HALOPERIDOL 5 MG TABLET PO PRN (07:50)
[2018-11-23] MEDS: ASCORBIC ACID 500 MG TABLET PO SCH (07:50)
[2018-11-23] MEDS: DIVALPROEX SODIUM 500 MG DR TABLET PO SCH ×2 (07:50→21:29)
[2018-11-23] MEDS: MAGNESIUM OXIDE 400 MG TABLET PO SCH ×2 (07:50→17:30)
[2018-11-23] MEDS: FLUoxetine HCL 20 MG CAPSULE PO SCH (07:50)
[2018-11-23] MEDS: ASPIRIN 81 MG CHEWABLE TABLET PO SCH (07:50)
[2018-11-23] MEDS: MULTIVITAMINS WITH MINERALS, THERAPEUTIC TABLET PO SCH (07:50)
[2018-11-23] MEDS: TOPIRAMATE 100 MG TABLET PO SCH ×3 (07:50→17:30)
[2018-11-23] MEDS: OXYBUTYNIN CHLORIDE 5 MG ER TABLET PO SCH (07:51)
[2018-11-23] MEDS: LevETIRAcetam 250 MG TABLET PO SCH ×2 (07:51→17:30)
[2018-11-23] MEDS: LORATADINE 10 MG TABLET PO SCH (07:53)
[2018-11-23] MEDS: QUEtiapine FUMARATE 200 MG TABLET PO SCH ×2 (07:55→21:29)
[2018-11-23 08:00] VITALS: BP 106/64
[2018-11-23] MEDS: DOCUSATE SODIUM 100 MG CAPSULE PO PRN (08:44)
[2018-11-23] MEDS: MAGNESIUM HYDROXIDE SUSPENSION 30 ML UDCUP PO PRN (08:44)
[2018-11-23 16:03] VITALS: BP 114/71
[2018-11-23 17:39] LABS: GLUCOMETER DEV NAME(LOC) 3E.C; GLUCOSE,POINT OF CARE 106 MG/DL (70-110)
[2018-11-23] MEDS: HALOPERIDOL 10 MG TABLET PO SCH (21:29)
[2018-11-24 06:20] LABS: GLUCOMETER DEV NAME(LOC) 3E.C; GLUCOSE,POINT OF CARE 70 MG/DL (70-110)
[2018-11-24] MEDS: FERROUS SULFATE 325 MG EC TABLET PO SCH ×2 (06:39→16:32)
[2018-11-24] MEDS: LEVOTHYROXINE SODIUM 75 MCG TABLET PO SCH (06:39)
[2018-11-24] MEDS: FLUoxetine HCL 20 MG CAPSULE PO SCH (09:07)
[2018-11-24] MEDS: DIVALPROEX SODIUM 500 MG DR TABLET PO SCH ×2 (09:08→20:15)
[2018-11-24] MEDS: BENAZEPRIL HCL 5 MG TABLET PO SCH (09:08)
[2018-11-24] MEDS: QUEtiapine FUMARATE 200 MG TABLET PO SCH ×2 (09:08→20:15)
[2018-11-24] MEDS: TOPIRAMATE 100 MG TABLET PO SCH ×3 (09:08→16:32)
[2018-11-24] MEDS: MAGNESIUM OXIDE 400 MG TABLET PO SCH ×2 (09:08→16:32)
[2018-11-24] MEDS: LevETIRAcetam 250 MG TABLET PO SCH ×2 (09:08→16:32)
[2018-11-24] MEDS: MULTIVITAMINS WITH MINERALS, THERAPEUTIC TABLET PO SCH (09:08)
[2018-11-24] MEDS: ASPIRIN 81 MG CHEWABLE TABLET PO SCH (09:08)
[2018-11-24] MEDS: OXYBUTYNIN CHLORIDE 5 MG ER TABLET PO SCH (09:08)
[2018-11-24] MEDS: LORATADINE 10 MG TABLET PO SCH (09:08)
[2018-11-24] MEDS: ASCORBIC ACID 500 MG TABLET PO SCH (09:08)
[2018-11-24 18:15] LABS: GLUCOMETER DEV NAME(LOC) 3E.C; GLUCOSE,POINT OF CARE 110 MG/DL (70-110)
[2018-11-24] MEDS: HALOPERIDOL 10 MG TABLET PO SCH (20:15)
[2018-11-25 06:10] LABS: GLUCOMETER DEV NAME(LOC) 3E.C; GLUCOSE,POINT OF CARE 85 MG/DL (70-110)
[2018-11-25] MEDS: FERROUS SULFATE 325 MG EC TABLET PO SCH ×2 (06:38→16:26)
[2018-11-25] MEDS: LEVOTHYROXINE SODIUM 75 MCG TABLET PO SCH (06:38)
[2018-11-25] MEDS: LevETIRAcetam 250 MG TABLET PO SCH ×2 (07:48→16:27)
[2018-11-25] MEDS: MAGNESIUM OXIDE 400 MG TABLET PO SCH ×2 (07:48→16:26)
[2018-11-25] MEDS: TOPIRAMATE 100 MG TABLET PO SCH ×3 (07:48→16:26)
[2018-11-25] MEDS: FLUoxetine HCL 20 MG CAPSULE PO SCH (07:48)
[2018-11-25] MEDS: MULTIVITAMINS WITH MINERALS, THERAPEUTIC TABLET PO SCH (07:48)
[2018-11-25] MEDS: LORATADINE 10 MG TABLET PO SCH (07:48)
[2018-11-25] MEDS: OXYBUTYNIN CHLORIDE 5 MG ER TABLET PO SCH (07:48)
[2018-11-25] MEDS: QUEtiapine FUMARATE 200 MG TABLET PO SCH ×2 (07:48→20:07)
[2018-11-25] MEDS: DIVALPROEX SODIUM 500 MG DR TABLET PO SCH ×2 (07:49→20:07)
[2018-11-25] MEDS: BENAZEPRIL HCL 5 MG TABLET PO SCH (07:49)
[2018-11-25] MEDS: ASPIRIN 81 MG CHEWABLE TABLET PO SCH (07:49)
[2018-11-25] MEDS: ASCORBIC ACID 500 MG TABLET PO SCH (07:49)
[2018-11-25 16:06] VITALS: BP 116/77
[2018-11-25 17:24] LABS: GLUCOMETER DEV NAME(LOC) 3E.C; GLUCOSE,POINT OF CARE 132 MG/DL (70-110)
[2018-11-25] MEDS: HALOPERIDOL 10 MG TABLET PO SCH (20:07)
[2018-11-26] MEDS: LEVOTHYROXINE SODIUM 75 MCG TABLET PO SCH (06:13)
[2018-11-26] MEDS: FERROUS SULFATE 325 MG EC TABLET PO SCH ×2 (06:13→18:43)
[2018-11-26 06:59] LABS: GLUCOMETER DEV NAME(LOC) 3E.C; GLUCOSE,POINT OF CARE 64 MG/DL (70-110)
[2018-11-26 06:59] LABS: GLUCOMETER DEV NAME(LOC) 3E.C; GLUCOSE,POINT OF CARE 103 MG/DL (70-110)
[2018-11-26] MEDS: ASCORBIC ACID 500 MG TABLET PO SCH (09:07)
[2018-11-26] MEDS: LevETIRAcetam 250 MG TABLET PO SCH ×2 (09:07→18:43)
[2018-11-26] MEDS: LORATADINE 10 MG TABLET PO SCH (09:07)
[2018-11-26] MEDS: BENAZEPRIL HCL 5 MG TABLET PO SCH (09:07)
[2018-11-26] MEDS: DOCUSATE SODIUM 100 MG CAPSULE PO PRN (09:07)
[2018-11-26] MEDS: DIVALPROEX SODIUM 500 MG DR TABLET PO SCH ×2 (09:07→20:44)
[2018-11-26] MEDS: QUEtiapine FUMARATE 200 MG TABLET PO SCH ×2 (09:08→20:45)
[2018-11-26] MEDS: TOPIRAMATE 100 MG TABLET PO SCH ×3 (09:08→18:44)
[2018-11-26] MEDS: ASPIRIN 81 MG CHEWABLE TABLET PO SCH (09:08)
[2018-11-26] MEDS: MAGNESIUM OXIDE 400 MG TABLET PO SCH ×2 (09:08→18:43)
[2018-11-26] MEDS: FLUoxetine HCL 20 MG CAPSULE PO SCH (09:08)
[2018-11-26] MEDS: MULTIVITAMINS WITH MINERALS, THERAPEUTIC TABLET PO SCH (09:08)
[2018-11-26] MEDS: HALOPERIDOL 5 MG TABLET PO PRN (09:10)
[2018-11-26] MEDS: OXYBUTYNIN CHLORIDE 5 MG ER TABLET PO SCH (09:11)
[2018-11-26 18:49] LABS: GLUCOMETER DEV NAME(LOC) 3E.C; GLUCOSE,POINT OF CARE 93 MG/DL (70-110)
[2018-11-26] MEDS: HALOPERIDOL 10 MG TABLET PO SCH (20:44)
[2018-11-26 22:03] VITALS: BP 136/85
[2018-11-27 06:39] LABS: GLUCOMETER DEV NAME(LOC) 3E.C; GLUCOSE,POINT OF CARE 70 MG/DL (70-110)
[2018-11-27] MEDS: FERROUS SULFATE 325 MG EC TABLET PO SCH ×2 (06:39→17:08)
[2018-11-27] MEDS: LEVOTHYROXINE SODIUM 75 MCG TABLET PO SCH (06:39)
[2018-11-27] MEDS: ASPIRIN 81 MG CHEWABLE TABLET PO SCH (07:33)
[2018-11-27] MEDS: MULTIVITAMINS WITH MINERALS, THERAPEUTIC TABLET PO SCH (07:33)
[2018-11-27] MEDS: HALOPERIDOL 5 MG TABLET PO PRN (07:33)
[2018-11-27] MEDS: LORATADINE 10 MG TABLET PO SCH (07:33)
[2018-11-27] MEDS: MAGNESIUM OXIDE 400 MG TABLET PO SCH ×2 (07:33→17:08)
[2018-11-27] MEDS: DOCUSATE SODIUM 100 MG CAPSULE PO PRN (07:33)
[2018-11-27] MEDS: QUEtiapine FUMARATE 200 MG TABLET PO SCH ×2 (07:33→20:02)
[2018-11-27] MEDS: DIVALPROEX SODIUM 500 MG DR TABLET PO SCH ×2 (07:33→20:02)
[2018-11-27] MEDS: FLUoxetine HCL 20 MG CAPSULE PO SCH (07:33)
[2018-11-27] MEDS: ASCORBIC ACID 500 MG TABLET PO SCH (07:33)
[2018-11-27] MEDS: LevETIRAcetam 250 MG TABLET PO SCH ×2 (07:34→17:08)
[2018-11-27] MEDS: BENAZEPRIL HCL 5 MG TABLET PO SCH (07:34)
[2018-11-27] MEDS: TOPIRAMATE 100 MG TABLET PO SCH ×3 (07:34→17:07)
[2018-11-27] MEDS: OXYBUTYNIN CHLORIDE 5 MG ER TABLET PO SCH (07:34)
[2018-11-27 08:05] VITALS: BP 97/57
[2018-11-27] MEDS: IBUPROFEN 600 MG TABLET PO PRN (09:28)
[2018-11-27 17:00] VITALS: BP 138/89
[2018-11-27 17:40] LABS: GLUCOMETER DEV NAME(LOC) 3E.C; GLUCOSE,POINT OF CARE 102 MG/DL (70-110)
[2018-11-27] MEDS: HALOPERIDOL 10 MG TABLET PO SCH (20:02)
[2018-11-28 06:40] LABS: GLUCOMETER DEV NAME(LOC) 3E.C; GLUCOSE,POINT OF CARE 105 MG/DL (70-110)
[2018-11-28] MEDS: LEVOTHYROXINE SODIUM 75 MCG TABLET PO SCH (06:57)
[2018-11-28] MEDS: FERROUS SULFATE 325 MG EC TABLET PO SCH ×2 (06:57→16:19)
[2018-11-28] MEDS: INSULIN LISPRO 100 UNITS/ML SQ PRN (06:57)
[2018-11-28] MEDS: LevETIRAcetam 250 MG TABLET PO SCH ×2 (08:00→16:19)
[2018-11-28] MEDS: DIVALPROEX SODIUM 500 MG DR TABLET PO SCH ×2 (08:00→20:26)
[2018-11-28] MEDS: FLUoxetine HCL 20 MG CAPSULE PO SCH (08:01)
[2018-11-28] MEDS: BENAZEPRIL HCL 5 MG TABLET PO SCH (08:15)
[2018-11-28] MEDS: TOPIRAMATE 100 MG TABLET PO SCH ×3 (08:15→16:32)
[2018-11-28] MEDS: ASCORBIC ACID 500 MG TABLET PO SCH (08:15)
[2018-11-28] MEDS: QUEtiapine FUMARATE 200 MG TABLET PO SCH ×2 (08:15→20:26)
[2018-11-28] MEDS: MAGNESIUM OXIDE 400 MG TABLET PO SCH ×2 (08:15→16:19)
[2018-11-28] MEDS: ASPIRIN 81 MG CHEWABLE TABLET PO SCH (08:15)
[2018-11-28] MEDS: LORATADINE 10 MG TABLET PO SCH (08:15)
[2018-11-28] MEDS: MULTIVITAMINS WITH MINERALS, THERAPEUTIC TABLET PO SCH (08:15)
[2018-11-28] MEDS: HALOPERIDOL 5 MG TABLET PO PRN (08:17)
[2018-11-28] MEDS: OXYBUTYNIN CHLORIDE 5 MG ER TABLET PO SCH (08:17)
[2018-11-28 10:21] VITALS: BP 112/63
[2018-11-28 17:55] LABS: GLUCOMETER DEV NAME(LOC) 3E.C; GLUCOSE,POINT OF CARE 63 MG/DL (70-110)
[2018-11-28] MEDS: HALOPERIDOL 10 MG TABLET PO SCH (20:26)
[2018-11-29] MEDS: FERROUS SULFATE 325 MG EC TABLET PO SCH ×2 (06:44→17:46)
[2018-11-29] MEDS: LEVOTHYROXINE SODIUM 75 MCG TABLET PO SCH (06:44)
[2018-11-29 07:14] LABS: GLUCOMETER DEV NAME(LOC) 3E.C; GLUCOSE,POINT OF CARE 62 MG/DL (70-110)
[2018-11-29 07:14] LABS: GLUCOMETER DEV NAME(LOC) 3E.C; GLUCOSE,POINT OF CARE 87 MG/DL (70-110)
[2018-11-29] MEDS: LevETIRAcetam 250 MG TABLET PO SCH ×2 (09:47→17:46)
[2018-11-29] MEDS: LORATADINE 10 MG TABLET PO SCH (09:47)
[2018-11-29] MEDS: MULTIVITAMINS WITH MINERALS, THERAPEUTIC TABLET PO SCH (09:48)
[2018-11-29] MEDS: HALOPERIDOL 5 MG TABLET PO PRN (09:48)
[2018-11-29] MEDS: ASPIRIN 81 MG CHEWABLE TABLET PO SCH (09:48)
[2018-11-29] MEDS: ASCORBIC ACID 500 MG TABLET PO SCH (09:49)
[2018-11-29] MEDS: BENAZEPRIL HCL 5 MG TABLET PO SCH (09:49)
[2018-11-29] MEDS: MAGNESIUM OXIDE 400 MG TABLET PO SCH ×2 (09:49→17:46)
[2018-11-29] MEDS: DIVALPROEX SODIUM 500 MG DR TABLET PO SCH ×2 (09:49→20:43)
[2018-11-29] MEDS: OXYBUTYNIN CHLORIDE 5 MG ER TABLET PO SCH (09:49)
[2018-11-29] MEDS: LITHIUM CARBONATE 300 MG CAPSULE PO SCH ×2 (09:49→17:47)
[2018-11-29] MEDS: TOPIRAMATE 100 MG TABLET PO SCH ×3 (09:49→17:46)
[2018-11-29] MEDS: FLUoxetine HCL 20 MG CAPSULE PO SCH (09:49)
[2018-11-29] MEDS: QUEtiapine FUMARATE 200 MG TABLET PO SCH ×2 (09:50→20:43)
[2018-11-29 17:54] LABS: GLUCOMETER DEV NAME(LOC) 3E.C; GLUCOSE,POINT OF CARE 77 MG/DL (70-110)
[2018-11-29 18:39] VITALS: BP 104/64
[2018-11-29] MEDS: HALOPERIDOL 10 MG TABLET PO SCH (20:43)
[2018-11-30 06:25] LABS: GLUCOMETER DEV NAME(LOC) 3E.C; GLUCOSE,POINT OF CARE 101 MG/DL (70-110)
[2018-11-30] MEDS: FERROUS SULFATE 325 MG EC TABLET PO SCH ×2 (07:04→17:39)
[2018-11-30] MEDS: LEVOTHYROXINE SODIUM 75 MCG TABLET PO SCH (07:04)
[2018-11-30] MEDS: INSULIN LISPRO 100 UNITS/ML SQ PRN (07:04)
[2018-11-30] MEDS: LevETIRAcetam 250 MG TABLET PO SCH ×2 (08:07→17:39)
[2018-11-30] MEDS: ASCORBIC ACID 500 MG TABLET PO SCH (08:07)
[2018-11-30] MEDS: DIVALPROEX SODIUM 500 MG DR TABLET PO SCH ×2 (08:07→21:19)
[2018-11-30] MEDS: ASPIRIN 81 MG CHEWABLE TABLET PO SCH (08:08)
[2018-11-30] MEDS: LITHIUM CARBONATE 300 MG CAPSULE PO SCH ×2 (08:08→17:39)
[2018-11-30] MEDS: QUEtiapine FUMARATE 200 MG TABLET PO SCH ×2 (08:08→21:19)
[2018-11-30] MEDS: FLUoxetine HCL 20 MG CAPSULE PO SCH (08:09)
[2018-11-30] MEDS: MULTIVITAMINS WITH MINERALS, THERAPEUTIC TABLET PO SCH (08:09)
[2018-11-30] MEDS: MAGNESIUM OXIDE 400 MG TABLET PO SCH ×2 (08:09→17:39)
[2018-11-30] MEDS: TOPIRAMATE 100 MG TABLET PO SCH ×3 (08:09→17:39)
[2018-11-30] MEDS: LORATADINE 10 MG TABLET PO SCH (08:09)
[2018-11-30] MEDS: BENAZEPRIL HCL 5 MG TABLET PO SCH (08:10)
[2018-11-30] MEDS: OXYBUTYNIN CHLORIDE 5 MG ER TABLET PO SCH (08:10)
[2018-11-30 17:10] LABS: GLUCOMETER DEV NAME(LOC) 3E.C; GLUCOSE,POINT OF CARE 109 MG/DL (70-110)
[2018-11-30] MEDS: HALOPERIDOL 10 MG TABLET PO SCH (21:20)
[2018-12-01 05:56] LABS: BASOPHILS % (AUTO) 0.1 % (0.0-2.0); EOSINOPHILS % (AUTO) 0.5 % (1.0-6.0); HEMATOCRIT 34.9 % (36-46); HEMOGLOBIN 11.7 g/dL (12.0-16.0); LYMPHOCYTES # (AUTO) 2.6 K/uL (1.0-4.8); LYMPHOCYTES % (AUTO) 33.9 % (22.0-44.0); MEAN CORPUSCULAR HEMOGLOBIN 34.8 pg (26.0-34.0); MEAN CORPUSCULAR HGB CONC 33.4 G/dL (31.0-37.0); MEAN CORPUSCULAR VOLUME 104 fL (80-100); MONOCYTES # (AUTO) 0.8 K/uL (0.1-1.0); MONOCYTES % (AUTO) 10.7 % (2.0-9.0); NEUTROPHILS # (AUTO) 4.3 K/uL (1.8-7.7); NEUTROPHILS % (AUTO) 54.8 % (40.0-70.0); PLATELET COUNT (AUTO) 186 K/uL (150-450); RED BLOOD CELL COUNT(AUTO) 3.35 MIL/uL (4.00-5.20); RED CELL DISTRIBUTION WIDTH 13.4 % (11.5-14.5)
[2018-12-01 06:10] LABS: GLUCOMETER DEV NAME(LOC) 3E.C; GLUCOSE,POINT OF CARE 71 MG/DL (70-110)
[2018-12-01 06:22] LABS: HEMOGLOBIN A1C 5.1 % (4.5-6.2)
[2018-12-01 06:31] LABS: ALANINE AMINOTRANSFERASE 81 U/L (12-78); ALBUMIN 2.3 g/dL (3.4-5.0); ALKALINE PHOSPHATASE 85 U/L (46-116); ANION GAP 10 mmol/L (8-16); ASPARTATE AMINOTRANSFERASE 37 U/L (15-37); BILIRUBIN,TOTAL 0.3 mg/dL (0.1-1.0); CALCIUM, TOTAL 9.2 mg/dL (8.8-10.5); CARBON DIOXIDE 24 mmol/L (22-29); CHLORIDE 107 mmol/L (98-107); CHOL/HDL RATIO 3.1 (3.9-5.7); CHOLESTEROL 164 mg/dL (131-200); CREATININE 0.67 mg/dL (0.60-1.30); GLOMERULAR FILTR. RATE CALC > 60 mL/min (>60); GLUCOSE,RANDOM 87 mg/dL (70-110); HDL CHOLESTEROL 53 mg/dL (40-60); LDL CHOL (CALC.) 90 mg/dL (0-130); PHOSPHORUS 4.4 mg/dL (2.5-4.9); POTASSIUM 4.6 mmol/L (3.5-5.1); SODIUM SERUM 141 mmol/L (136-145); THYROID STIMULATING HORMONE 5.18 uIU/mL (0.36-3.74); TOTAL PROTEIN, SERUM 6.4 g/dL (6.4-8.2); TRIGLYCERIDES 106 mg/dL (15-150); UREA NITROGEN, BLOOD 20 mg/dL (7-18)
[2018-12-01] MEDS: LEVOTHYROXINE SODIUM 75 MCG TABLET PO SCH (07:12)
[2018-12-01] MEDS: FERROUS SULFATE 325 MG EC TABLET PO SCH ×2 (07:12→17:11)
[2018-12-01] MEDS: ASPIRIN 81 MG CHEWABLE TABLET PO SCH (08:05)
[2018-12-01] MEDS: TOPIRAMATE 100 MG TABLET PO SCH ×3 (08:05→17:10)
[2018-12-01] MEDS: LevETIRAcetam 250 MG TABLET PO SCH ×2 (08:05→17:10)
[2018-12-01] MEDS: ASCORBIC ACID 500 MG TABLET PO SCH (08:05)
[2018-12-01] MEDS: QUEtiapine FUMARATE 200 MG TABLET PO SCH ×2 (08:05→20:59)
[2018-12-01] MEDS: LITHIUM CARBONATE 300 MG CAPSULE PO SCH ×2 (08:06→17:10)
[2018-12-01] MEDS: BENAZEPRIL HCL 5 MG TABLET PO SCH (08:06)
[2018-12-01] MEDS: FLUoxetine HCL 20 MG CAPSULE PO SCH (08:06)
[2018-12-01] MEDS: OMEPRAZOLE 20 MG CAPSULE PO PRN (08:06)
[2018-12-01] MEDS: HALOPERIDOL 5 MG TABLET PO PRN (08:06)
[2018-12-01] MEDS: OXYBUTYNIN CHLORIDE 5 MG ER TABLET PO SCH (08:06)
[2018-12-01] MEDS: DIVALPROEX SODIUM 500 MG DR TABLET PO SCH ×2 (08:08→21:00)
[2018-12-01] MEDS: LORATADINE 10 MG TABLET PO SCH (08:08)
[2018-12-01] MEDS: MULTIVITAMINS WITH MINERALS, THERAPEUTIC TABLET PO SCH (08:10)
[2018-12-01] MEDS: MAGNESIUM OXIDE 400 MG TABLET PO SCH ×2 (08:10→17:12)
[2018-12-01 17:59] LABS: GLUCOMETER DEV NAME(LOC) 3E.C; GLUCOSE,POINT OF CARE 71 MG/DL (70-110)
[2018-12-01] MEDS: HALOPERIDOL 10 MG TABLET PO SCH (20:59)
[2018-12-02 06:24] LABS: GLUCOMETER DEV NAME(LOC) 3E.C; GLUCOSE,POINT OF CARE 83 MG/DL (70-110)
[2018-12-02] MEDS: LEVOTHYROXINE SODIUM 100 MCG TABLET PO SCH (06:38)
[2018-12-02] MEDS: FERROUS SULFATE 325 MG EC TABLET PO SCH ×2 (06:38→17:36)
[2018-12-02] MEDS: INSULIN LISPRO 100 UNITS/ML SQ PRN (06:39)
[2018-12-02] MEDS: QUEtiapine FUMARATE 200 MG TABLET PO SCH ×2 (09:17→21:10)
[2018-12-02] MEDS: TOPIRAMATE 100 MG TABLET PO SCH ×3 (09:17→17:36)
[2018-12-02] MEDS: DIVALPROEX SODIUM 500 MG DR TABLET PO SCH ×2 (09:18→21:09)
[2018-12-02] MEDS: LevETIRAcetam 250 MG TABLET PO SCH ×2 (09:18→17:36)
[2018-12-02] MEDS: LITHIUM CARBONATE 300 MG CAPSULE PO SCH ×2 (09:18→17:36)
[2018-12-02] MEDS: ASPIRIN 81 MG CHEWABLE TABLET PO SCH (09:19)
[2018-12-02] MEDS: LORATADINE 10 MG TABLET PO SCH (09:20)
[2018-12-02] MEDS: HALOPERIDOL 5 MG TABLET PO PRN (09:21)
[2018-12-02] MEDS: OXYBUTYNIN CHLORIDE 5 MG ER TABLET PO SCH (09:22)
[2018-12-02] MEDS: BENAZEPRIL HCL 5 MG TABLET PO SCH (09:22)
[2018-12-02] MEDS: MULTIVITAMINS WITH MINERALS, THERAPEUTIC TABLET PO SCH (09:22)
[2018-12-02] MEDS: MAGNESIUM OXIDE 400 MG TABLET PO SCH ×2 (09:23→17:36)
[2018-12-02] MEDS: FLUoxetine HCL 20 MG CAPSULE PO SCH (09:23)
[2018-12-02] MEDS: ASCORBIC ACID 500 MG TABLET PO SCH (09:24)
[2018-12-02 09:51] LABS: LITHIUM 1.27 mmol/L (0.60-1.20)
[2018-12-02 17:40] LABS: GLUCOMETER DEV NAME(LOC) 3E.C; GLUCOSE,POINT OF CARE 86 MG/DL (70-110)
[2018-12-02] MEDS: HALOPERIDOL 10 MG TABLET PO SCH (21:09)
[2018-12-03] MEDS: FERROUS SULFATE 325 MG EC TABLET PO SCH ×2 (06:55→18:15)
[2018-12-03] MEDS: LEVOTHYROXINE SODIUM 100 MCG TABLET PO SCH (06:55)
[2018-12-03] MEDS: QUEtiapine FUMARATE 200 MG TABLET PO SCH ×2 (08:06→21:15)
[2018-12-03] MEDS: FLUoxetine HCL 20 MG CAPSULE PO SCH (08:06)
[2018-12-03] MEDS: OXYBUTYNIN CHLORIDE 5 MG ER TABLET PO SCH (08:07)
[2018-12-03] MEDS: TOPIRAMATE 100 MG TABLET PO SCH ×3 (08:07→18:16)
[2018-12-03] MEDS: MAGNESIUM OXIDE 400 MG TABLET PO SCH ×2 (08:07→18:15)
[2018-12-03] MEDS: BENAZEPRIL HCL 5 MG TABLET PO SCH (08:07)
[2018-12-03] MEDS: MULTIVITAMINS WITH MINERALS, THERAPEUTIC TABLET PO SCH (08:07)
[2018-12-03] MEDS: LORATADINE 10 MG TABLET PO SCH (08:07)
[2018-12-03] MEDS: ASPIRIN 81 MG CHEWABLE TABLET PO SCH (08:08)
[2018-12-03] MEDS: ASCORBIC ACID 500 MG TABLET PO SCH (08:08)
[2018-12-03] MEDS: DIVALPROEX SODIUM 500 MG DR TABLET PO SCH ×2 (08:08→21:14)
[2018-12-03] MEDS: LITHIUM CARBONATE 300 MG CAPSULE PO SCH ×2 (08:08→18:15)
[2018-12-03] MEDS: LevETIRAcetam 250 MG TABLET PO SCH ×2 (08:08→18:15)
[2018-12-03] MEDS: HALOPERIDOL 5 MG TABLET PO PRN (08:10)
[2018-12-03 17:37] VITALS: BP 110/72
[2018-12-03] MEDS: HALOPERIDOL 10 MG TABLET PO SCH (21:14)
[2018-12-03 21:29] LABS: GLUCOMETER DEV NAME(LOC) 3E.C; GLUCOSE,POINT OF CARE 112 MG/DL (70-110)
[2018-12-04] MEDS: LEVOTHYROXINE SODIUM 100 MCG TABLET PO SCH (06:50)
[2018-12-04] MEDS: FERROUS SULFATE 325 MG EC TABLET PO SCH ×2 (06:50→17:32)
[2018-12-04] MEDS: TOPIRAMATE 100 MG TABLET PO SCH ×3 (08:00→17:32)
[2018-12-04] MEDS: QUEtiapine FUMARATE 200 MG TABLET PO SCH ×2 (08:00→20:39)
[2018-12-04] MEDS: ASCORBIC ACID 500 MG TABLET PO SCH (08:00)
[2018-12-04] MEDS: LORATADINE 10 MG TABLET PO SCH (08:00)
[2018-12-04] MEDS: OXYBUTYNIN CHLORIDE 5 MG ER TABLET PO SCH (08:00)
[2018-12-04] MEDS: DIVALPROEX SODIUM 500 MG DR TABLET PO SCH ×2 (08:01→20:39)
[2018-12-04] MEDS: MAGNESIUM OXIDE 400 MG TABLET PO SCH ×2 (08:01→17:33)
[2018-12-04] MEDS: FLUoxetine HCL 20 MG CAPSULE PO SCH (08:01)
[2018-12-04] MEDS: ASPIRIN 81 MG CHEWABLE TABLET PO SCH (08:01)
[2018-12-04] MEDS: BENAZEPRIL HCL 5 MG TABLET PO SCH (08:01)
[2018-12-04] MEDS: MULTIVITAMINS WITH MINERALS, THERAPEUTIC TABLET PO SCH (08:01)
[2018-12-04] MEDS: LITHIUM CARBONATE 300 MG CAPSULE PO SCH ×2 (08:01→17:32)
[2018-12-04] MEDS: LevETIRAcetam 250 MG TABLET PO SCH ×2 (08:01→17:32)
[2018-12-04 08:15] VITALS: BP 92/65
[2018-12-04 16:02] VITALS: BP 133/90
[2018-12-04 16:44] LABS: GLUCOMETER DEV NAME(LOC) 3E.C; GLUCOSE,POINT OF CARE 76 MG/DL (70-110)
[2018-12-04] MEDS: HALOPERIDOL 10 MG TABLET PO SCH (20:39)
[2018-12-05 06:25] LABS: GLUCOMETER DEV NAME(LOC) 3E.C; GLUCOSE,POINT OF CARE 83 MG/DL (70-110)
[2018-12-05] MEDS: LEVOTHYROXINE SODIUM 100 MCG TABLET PO SCH (06:51)
[2018-12-05] MEDS: FERROUS SULFATE 325 MG EC TABLET PO SCH ×2 (06:51→17:13)
[2018-12-05] MEDS: INSULIN LISPRO 100 UNITS/ML SQ PRN (06:55)
[2018-12-05] MEDS: DIVALPROEX SODIUM 500 MG DR TABLET PO SCH ×2 (08:52→20:24)
[2018-12-05] MEDS: LORATADINE 10 MG TABLET PO SCH (08:52)
[2018-12-05] MEDS: ASCORBIC ACID 500 MG TABLET PO SCH (08:52)
[2018-12-05] MEDS: QUEtiapine FUMARATE 200 MG TABLET PO SCH ×2 (08:52→20:24)
[2018-12-05] MEDS: BENAZEPRIL HCL 5 MG TABLET PO SCH (08:52)
[2018-12-05] MEDS: LevETIRAcetam 250 MG TABLET PO SCH ×2 (08:52→17:13)
[2018-12-05] MEDS: OXYBUTYNIN CHLORIDE 5 MG ER TABLET PO SCH (08:52)
[2018-12-05] MEDS: OMEPRAZOLE 20 MG CAPSULE PO PRN (08:52)
[2018-12-05] MEDS: FLUoxetine HCL 20 MG CAPSULE PO SCH (08:52)
[2018-12-05] MEDS: TOPIRAMATE 100 MG TABLET PO SCH ×3 (08:52→17:13)
[2018-12-05] MEDS: MULTIVITAMINS WITH MINERALS, THERAPEUTIC TABLET PO SCH (08:52)
[2018-12-05] MEDS: LITHIUM CARBONATE 300 MG CAPSULE PO SCH ×2 (08:52→17:13)
[2018-12-05] MEDS: ASPIRIN 81 MG CHEWABLE TABLET PO SCH (08:52)
[2018-12-05] MEDS: MAGNESIUM OXIDE 400 MG TABLET PO SCH ×2 (08:53→17:13)
[2018-12-05] MEDS: HALOPERIDOL 5 MG TABLET PO PRN (08:54)
[2018-12-05 17:30] VITALS: BP 120/63
[2018-12-05 17:39] LABS: GLUCOMETER DEV NAME(LOC) 3E.C; GLUCOSE,POINT OF CARE 108 MG/DL (70-110)
[2018-12-05] MEDS: HALOPERIDOL 10 MG TABLET PO SCH (20:24)
[2018-12-06] MEDS: FERROUS SULFATE 325 MG EC TABLET PO SCH ×2 (06:46→18:02)
[2018-12-06] MEDS: LEVOTHYROXINE SODIUM 100 MCG TABLET PO SCH (06:46)
[2018-12-06] MEDS: INSULIN LISPRO 100 UNITS/ML SQ PRN (07:03)
[2018-12-06 07:05] LABS: GLUCOMETER DEV NAME(LOC) 3E.C; GLUCOSE,POINT OF CARE 63 MG/DL (70-110)
[2018-12-06 07:05] LABS: GLUCOMETER DEV NAME(LOC) 3E.C; GLUCOSE,POINT OF CARE 111 MG/DL (70-110)
[2018-12-06 08:05] VITALS: BP 103/82
[2018-12-06] MEDS: QUEtiapine FUMARATE 200 MG TABLET PO SCH ×2 (08:40→20:43)
[2018-12-06] MEDS: LORATADINE 10 MG TABLET PO SCH (08:40)
[2018-12-06] MEDS: ASPIRIN 81 MG CHEWABLE TABLET PO SCH (08:40)
[2018-12-06] MEDS: MULTIVITAMINS WITH MINERALS, THERAPEUTIC TABLET PO SCH (08:40)
[2018-12-06] MEDS: MAGNESIUM OXIDE 400 MG TABLET PO SCH ×2 (08:40→17:59)
[2018-12-06] MEDS: OXYBUTYNIN CHLORIDE 5 MG ER TABLET PO SCH (08:40)
[2018-12-06] MEDS: DIVALPROEX SODIUM 500 MG DR TABLET PO SCH ×2 (08:40→20:42)
[2018-12-06] MEDS: FLUoxetine HCL 20 MG CAPSULE PO SCH (08:40)
[2018-12-06] MEDS: ASCORBIC ACID 500 MG TABLET PO SCH (08:40)
[2018-12-06] MEDS: LITHIUM CARBONATE 300 MG CAPSULE PO SCH (08:40)
[2018-12-06] MEDS: BENAZEPRIL HCL 5 MG TABLET PO SCH (08:40)
[2018-12-06] MEDS: TOPIRAMATE 100 MG TABLET PO SCH ×4 (08:40→17:58)
[2018-12-06] MEDS: LevETIRAcetam 250 MG TABLET PO SCH ×2 (08:40→17:59)
[2018-12-06] MEDS: HALOPERIDOL 5 MG TABLET PO PRN (08:40)
[2018-12-06] MEDS: MAGNESIUM HYDROXIDE SUSPENSION 30 ML UDCUP PO PRN (08:50)
[2018-12-06] MEDS: DOCUSATE SODIUM 100 MG CAPSULE PO PRN (08:50)
[2018-12-06 16:11] VITALS: BP 119/74
[2018-12-06 18:44] LABS: GLUCOMETER DEV NAME(LOC) 3E.C; GLUCOSE,POINT OF CARE 97 MG/DL (70-110)
[2018-12-06] MEDS: HALOPERIDOL 10 MG TABLET PO SCH (20:43)
[2018-12-06] MEDS ORDERED: LITHIUM CARBONATE 300 MG CAPSULE PO SCH (21:00)
[2018-12-07 06:54] LABS: GLUCOMETER DEV NAME(LOC) 3E.C; GLUCOSE,POINT OF CARE 90 MG/DL (70-110)
[2018-12-07] MEDS: LEVOTHYROXINE SODIUM 100 MCG TABLET PO SCH (07:02)
[2018-12-07] MEDS: FERROUS SULFATE 325 MG EC TABLET PO SCH ×2 (07:02→18:08)
[2018-12-07] MEDS: INSULIN LISPRO 100 UNITS/ML SQ PRN (07:03)
[2018-12-07] MEDS: MULTIVITAMINS WITH MINERALS, THERAPEUTIC TABLET PO SCH (07:49)
[2018-12-07] MEDS: LevETIRAcetam 250 MG TABLET PO SCH ×2 (07:50→18:08)
[2018-12-07] MEDS: LORATADINE 10 MG TABLET PO SCH (07:50)
[2018-12-07] MEDS: TOPIRAMATE 100 MG TABLET PO SCH ×3 (07:50→18:08)
[2018-12-07] MEDS: QUEtiapine FUMARATE 200 MG TABLET PO SCH (07:50)
[2018-12-07] MEDS: FLUoxetine HCL 20 MG CAPSULE PO SCH (07:50)
[2018-12-07] MEDS: MAGNESIUM OXIDE 400 MG TABLET PO SCH ×2 (07:50→18:08)
[2018-12-07] MEDS: ASCORBIC ACID 500 MG TABLET PO SCH (07:50)
[2018-12-07] MEDS: BENAZEPRIL HCL 5 MG TABLET PO SCH (07:50)
[2018-12-07] MEDS: ASPIRIN 81 MG CHEWABLE TABLET PO SCH (07:51)
[2018-12-07] MEDS: DIVALPROEX SODIUM 500 MG DR TABLET PO SCH (07:51)
[2018-12-07] MEDS: HALOPERIDOL 5 MG TABLET PO PRN (07:51)
[2018-12-07] MEDS: OXYBUTYNIN CHLORIDE 5 MG ER TABLET PO SCH (07:53)
[2018-12-07 08:00] VITALS: BP 128/78
[2018-12-07] MEDS: DOCUSATE SODIUM 100 MG CAPSULE PO PRN (08:17)
[2018-12-07] MEDS: MAGNESIUM HYDROXIDE SUSPENSION 30 ML UDCUP PO PRN (08:17)
[2018-12-07 15:55] LABS: ANION GAP 2 mmol/L (8-16); BASOPHILS % (AUTO) 0.2 % (0.0-2.0); CARBON DIOXIDE 30 mmol/L (22-29); CHLORIDE 106 mmol/L (98-107); CREATININE 0.86 mg/dL (0.60-1.30); EOSINOPHILS % (AUTO) 1.2 % (1.0-6.0); GLOMERULAR FILTR. RATE CALC > 60 mL/min (>60); GLUCOSE,RANDOM 152 mg/dL (70-110); HEMOGLOBIN 10.6 g/dL (12.0-16.0); LYMPHOCYTES # (AUTO) 2.3 K/uL (1.0-4.8); LYMPHOCYTES % (AUTO) 29.3 % (22.0-44.0); MEAN CORPUSCULAR HEMOGLOBIN 34.5 pg (26.0-34.0); MEAN CORPUSCULAR VOLUME 105 fL (80-100); MONOCYTES % (AUTO) 12.6 % (2.0-9.0); NEUTROPHILS # (AUTO) 4.5 K/uL (1.8-7.7); NEUTROPHILS % (AUTO) 56.7 % (40.0-70.0); PLATELET COUNT (AUTO) 181 K/uL (150-450); POTASSIUM 4.3 mmol/L (3.5-5.1); RED BLOOD CELL COUNT(AUTO) 3.06 MIL/uL (4.00-5.20); RED CELL DISTRIBUTION WIDTH 12.8 % (11.5-14.5); SODIUM SERUM 138 mmol/L (136-145); UREA NITROGEN, BLOOD 34 mg/dL (7-18)
[2018-12-07 15:57] LABS: VALPROIC ACID 98 mcg/mL (50-100)
[2018-12-07 16:09] LABS: LITHIUM 1.84 mmol/L (0.60-1.20)
[2018-12-07 16:27] VITALS: BP 107/72
[2018-12-07 17:00] LABS: GLUCOMETER DEV NAME(LOC) 3E.C; GLUCOSE,POINT OF CARE 122 MG/DL (70-110)
[2018-12-07] MEDS ORDERED: VALP250S23 PO (17:01)
[2018-12-07] MEDS ORDERED: FLUO40CA7 PO (17:06)
[2018-12-07] MEDS ORDERED: MAGOX PO (17:21)
== END 2018-12-07 18:30 | disposition short-term general hospital (02) | DRG 750 ==
LOC: EMS 08:55 → 3EI 22:00 → B2S 09-23 20:15 → B3A 10-01 23:49 → 3EC 10-18 20:09
PROVIDERS: ATTEND Psychiatry & Neurology Psychiatry
DX: F25.9 Schizoaffective disorder, unspecified (principal); E11.65 Type 2 diabetes mellitus with hyperglycemia; F79 Unspecified intellectual disabilities; D64.9 Anemia, unspecified; R45.87 Impulsiveness; G40.909 Epilepsy, unspecified, not intractable, without status epilepticus; I10 Essential (primary) hypertension; R32 Unspecified urinary incontinence; E03.9 Hypothyroidism, unspecified; S00.81XA Abrasion of other part of head, initial encounter; X58.XXXA Exposure to other specified factors, initial encounter; E78.00 Pure hypercholesterolemia, unspecified; Z59.0 Homelessness; Z91.5 Personal history of self-harm; Y93.89 Activity, other specified; Y92.89 Other specified places as the place of occurrence of the external cause; Y99.8 Other external cause status; Z81.0 Family history of intellectual disabilities; Z91.19 Patient's noncompliance with other medical treatment and regimen
CPT/HCPCS: 70450; 80074; 82670; 82679; 83036; 83735; 84100; 84403; 84443; 85007; 87070; 87081; 87389; 90686; 97166; 97535; 99291; G0480; J1200; J1630; J2060; Q0162

== ENCOUNTER 2018-12-07 18:25 | Inpatient (IN) | payer OTHER ==
[~2018-12-07 18:25] MED LIST changes: +FLUO40CA7 PO; +MAGOX PO; +VALP250S23 PO
[2018-12-07 20:40] VITALS: BP 118/79
[2018-12-07] MEDS ORDERED: DEXTROSE 50%-WATER 25 GM/50 ML SYRINGE IVP PRN (21:30)
[2018-12-07 22:19] LABS: GLUCOMETER DEV NAME(LOC) 5N.2; GLUCOSE,POINT OF CARE 87 MG/DL (70-110)
[2018-12-08] VITALS: BP 104/59
[2018-12-08 04:00] VITALS: BP 101/55
[2018-12-08] MEDS ORDERED: LEVOTHYROXINE SODIUM 100 MCG TABLET PO SCH (06:30)
[2018-12-08 06:34] LABS: GLUCOMETER DEV NAME(LOC) 5N.2; GLUCOSE,POINT OF CARE 107 MG/DL (70-110)
[2018-12-08 07:45] VITALS: BP 104/82
[2018-12-08] MEDS: TOPIRAMATE 100 MG TABLET PO SCH ×2 (07:53→15:34)
[2018-12-08] MEDS: FERROUS SULFATE 325 MG EC TABLET PO SCH ×2 (07:54→17:22)
[2018-12-08] MEDS ORDERED: DIVALPROEX SODIUM 500 MG DR TABLET PO SCH (09:00)
[2018-12-08] MEDS ORDERED: FLUoxetine HCL 20 MG CAPSULE PO SCH (09:00)
[2018-12-08] MEDS ORDERED: ASCORBIC ACID 500 MG TABLET PO SCH (09:00)
[2018-12-08] MEDS ORDERED: LevETIRAcetam 250 MG TABLET PO SCH (09:00)
[2018-12-08] MEDS ORDERED: ASPIRIN 81 MG CHEWABLE TABLET PO SCH (09:00)
[2018-12-08] MEDS ORDERED: BENAZEPRIL HCL 5 MG TABLET PO SCH (09:00)
[2018-12-08] MEDS ORDERED: QUEtiapine FUMARATE 200 MG TABLET PO SCH (09:00)
[2018-12-08] MEDS ORDERED: MAGNESIUM OXIDE 400 MG TABLET PO SCH (09:00)
[2018-12-08] MEDS ORDERED: OXYBUTYNIN CHLORIDE 5 MG ER TABLET PO SCH (09:00)
[2018-12-08] MEDS ORDERED: LORATADINE 10 MG TABLET PO SCH (09:00)
[2018-12-08] MEDS ORDERED: MULTIVITAMINS WITH MINERALS, THERAPEUTIC TABLET PO SCH (09:00)
[2018-12-08 10:16] LABS: ANION GAP 8 mmol/L (8-16); CALCIUM, TOTAL 8.8 mg/dL (8.8-10.5); CARBON DIOXIDE 23 mmol/L (22-29); CHLORIDE 107 mmol/L (98-107); CREATININE 0.62 mg/dL (0.60-1.30); GLOMERULAR FILTR. RATE CALC > 60 mL/min (>60); GLUCOSE,RANDOM 147 mg/dL (70-110); POTASSIUM 4.8 mmol/L (3.5-5.1); SODIUM SERUM 138 mmol/L (136-145); UREA NITROGEN, BLOOD 22 mg/dL (7-18)
[2018-12-08 10:39] LABS: LITHIUM 1.13 mmol/L (0.60-1.20)
[2018-12-08] MEDS: INSULIN LISPRO 100 UNITS/ML SQ PRN ×2 (11:56→17:21)
[2018-12-08 12:00] VITALS: BP 80/48
[2018-12-08 16:30] VITALS: BP 101/63
[2018-12-08 19:19] LABS: GLUCOMETER DEV NAME(LOC) 5N.2; GLUCOSE,POINT OF CARE 128 MG/DL (70-110)
[2018-12-08 19:19] LABS: GLUCOMETER DEV NAME(LOC) 5N.2; GLUCOSE,POINT OF CARE 128 MG/DL (70-110)
[2018-12-08] MEDS ORDERED: HALOPERIDOL 10 MG TABLET PO SCH (21:00)
== END 2018-12-08 18:52 | DRG 861 ==
LOC: 5N 18:25 → 3EC 12-08 18:41
PROVIDERS: ADMIT Internal Medicine; ATTEND Internal Medicine
DX: R78.89 Finding of other specified substances, not normally found in blood (principal); E11.65 Type 2 diabetes mellitus with hyperglycemia; F25.9 Schizoaffective disorder, unspecified; E03.9 Hypothyroidism, unspecified; G40.909 Epilepsy, unspecified, not intractable, without status epilepticus; I10 Essential (primary) hypertension; R32 Unspecified urinary incontinence; S00.81XA Abrasion of other part of head, initial encounter; T43.595A Adverse effect of other antipsychotics and neuroleptics, initial encounter; X58.XXXA Exposure to other specified factors, initial encounter; D64.9 Anemia, unspecified; F41.9 Anxiety disorder, unspecified; R62.50 Unspecified lack of expected normal physiological development in childhood; Z79.899 Other long term (current) drug therapy; Y93.89 Activity, other specified; Y92.89 Other specified places as the place of occurrence of the external cause; Y99.8 Other external cause status
CPT/HCPCS: 87081; G0378

== ENCOUNTER 2018-12-08 18:45 | Inpatient (IN) | payer MEDICAID ==
[~2018-12-08] VITALS: Ht 139.7 cm; Wt 53.7 kg
[~2018-12-08 18:45] MED LIST changes: -GUAN1TAB22 PO; -HYPR15DR23 OD; -LIDO5CRE2 TP; -METF-960 PO; -PANT40TA PO; -SIMV-260 PO; -VALP250S23 PO
[2018-12-08] MEDS ORDERED: LOPERAMIDE HCL 2 MG CAPSULE PO PRN (20:30)
[2018-12-08] MEDS ORDERED: ACETAMINOPHEN 325 MG TABLET PO PRN (20:30)
[2018-12-08] MEDS ORDERED: ALBUTEROL SULFATE HFA 90 MCG/PUFF 8 GM INHALER IH PRN (20:30)
[2018-12-08] MEDS ORDERED: BACITRACIN 28.4 GM OINTMENT TP PRN (20:30)
[2018-12-08] MEDS ORDERED: PETROLATUM,WHITE 28 GM JELLY TP PRN (20:30)
[2018-12-08] MEDS ORDERED: IBUPROFEN 600 MG TABLET PO PRN (20:30)
[2018-12-08] MEDS ORDERED: BENZOCAINE/MENTHOL LOZENGE MM PRN (20:30)
[2018-12-08] MEDS ORDERED: CloNIDine HCL 0.1 MG TABLET PO PRN (20:30)
[2018-12-08] MEDS ORDERED: ONDANSETRON HCL 4 MG TABLET PO PRN (20:30)
[2018-12-08 20:44] VITALS: BP 101/58
[2018-12-08] MEDS ORDERED: DEXTROSE 50%-WATER 25 GM/50 ML SYRINGE IVP PRN (20:45)
[2018-12-08] MEDS: HALOPERIDOL 10 MG TABLET PO SCH (21:47)
[2018-12-08] MEDS: QUEtiapine FUMARATE 200 MG TABLET PO SCH (21:47)
[2018-12-08] MEDS: DIVALPROEX SODIUM 500 MG DR TABLET PO SCH (21:47)
[2018-12-09 06:25] LABS: GLUCOMETER DEV NAME(LOC) 3E.C; GLUCOSE,POINT OF CARE 89 MG/DL (70-110)
[2018-12-09] MEDS: LEVOTHYROXINE SODIUM 100 MCG TABLET PO SCH (07:01)
[2018-12-09] MEDS: FERROUS SULFATE 325 MG EC TABLET PO SCH ×2 (07:01→17:19)
[2018-12-09] MEDS: INSULIN LISPRO 100 UNITS/ML SQ PRN (07:03)
[2018-12-09 08:13] LABS: BASOPHILS % (AUTO) 0.2 % (0.0-2.0); EOSINOPHILS % (AUTO) 1.8 % (1.0-6.0); HEMOGLOBIN 9.9 g/dL (12.0-16.0); LYMPHOCYTES # (AUTO) 2.7 K/uL (1.0-4.8); LYMPHOCYTES % (AUTO) 39.5 % (22.0-44.0); MEAN CORPUSCULAR HEMOGLOBIN 34.9 pg (26.0-34.0); MEAN CORPUSCULAR HGB CONC 34.1 G/dL (31.0-37.0); MEAN CORPUSCULAR VOLUME 102 fL (80-100); MONOCYTES # (AUTO) 0.8 K/uL (0.1-1.0); MONOCYTES % (AUTO) 11.4 % (2.0-9.0); NEUTROPHILS # (AUTO) 3.2 K/uL (1.8-7.7); NEUTROPHILS % (AUTO) 47.1 % (40.0-70.0); PLATELET COUNT (AUTO) 174 K/uL (150-450); RED BLOOD CELL COUNT(AUTO) 2.84 MIL/uL (4.00-5.20); RED CELL DISTRIBUTION WIDTH 12.8 % (11.5-14.5)
[2018-12-09 08:32] LABS: LITHIUM 0.69 mmol/L (0.60-1.20)
[2018-12-09 08:44] LABS: ALANINE AMINOTRANSFERASE 88 U/L (12-78); ALBUMIN 2.1 g/dL (3.4-5.0); ALKALINE PHOSPHATASE 81 U/L (46-116); ANION GAP 7 mmol/L (8-16); ASPARTATE AMINOTRANSFERASE 51 U/L (15-37); BILIRUBIN,TOTAL 0.2 mg/dL (0.1-1.0); CALCIUM, TOTAL 8.9 mg/dL (8.8-10.5); CARBON DIOXIDE 25 mmol/L (22-29); CHLORIDE 108 mmol/L (98-107); CREATININE 0.59 mg/dL (0.60-1.30); FREE T4 (FREE THYROXINE) 0.76 ng/dL (0.76-1.46); GLOMERULAR FILTR. RATE CALC > 60 mL/min (>60); GLUCOSE,RANDOM 95 mg/dL (70-110); POTASSIUM 4.2 mmol/L (3.5-5.1); SODIUM SERUM 140 mmol/L (136-145); THYROID STIMULATING HORMONE 6.22 uIU/mL (0.36-3.74); TOTAL PROTEIN, SERUM 5.6 g/dL (6.4-8.2); UREA NITROGEN, BLOOD 12 mg/dL (7-18); VALPROIC ACID 76 mcg/mL (50-100)
[2018-12-09] MEDS: TOPIRAMATE 100 MG TABLET PO SCH ×3 (09:21→17:19)
[2018-12-09] MEDS: LevETIRAcetam 250 MG TABLET PO SCH ×2 (09:21→17:19)
[2018-12-09] MEDS: QUEtiapine FUMARATE 200 MG TABLET PO SCH ×2 (09:21→20:07)
[2018-12-09] MEDS: MAGNESIUM OXIDE 400 MG TABLET PO SCH ×2 (09:21→17:19)
[2018-12-09] MEDS: OMEPRAZOLE 20 MG CAPSULE PO SCH (09:21)
[2018-12-09] MEDS: FLUoxetine HCL 20 MG CAPSULE PO SCH (09:21)
[2018-12-09] MEDS: ASPIRIN 81 MG EC TABLET PO SCH (09:22)
[2018-12-09] MEDS: DOCUSATE SODIUM 100 MG CAPSULE PO SCH (09:22)
[2018-12-09] MEDS: LORATADINE 10 MG TABLET PO SCH (09:22)
[2018-12-09] MEDS: ASCORBIC ACID 500 MG TABLET PO SCH (09:22)
[2018-12-09] MEDS: MULTIVITAMINS WITH MINERALS, THERAPEUTIC TABLET PO SCH (09:23)
[2018-12-09] MEDS: OXYBUTYNIN CHLORIDE 5 MG ER TABLET PO SCH (09:23)
[2018-12-09] MEDS: DIVALPROEX SODIUM 500 MG DR TABLET PO SCH ×3 (09:24→20:07)
[2018-12-09] MEDS: BENAZEPRIL HCL 5 MG TABLET PO SCH (09:24)
[2018-12-09 12:03] VITALS: BP 118/88
[2018-12-09 17:39] LABS: GLUCOMETER DEV NAME(LOC) 3E.C; GLUCOSE,POINT OF CARE 109 MG/DL (70-110)
[2018-12-09 17:47] VITALS: BP 128/77
[2018-12-09] MEDS: HALOPERIDOL 10 MG TABLET PO SCH (20:07)
[2018-12-10 06:19] LABS: GLUCOMETER DEV NAME(LOC) 3E.C; GLUCOSE,POINT OF CARE 119 MG/DL (70-110)
[2018-12-10] MEDS: LEVOTHYROXINE SODIUM 100 MCG TABLET PO SCH (06:57)
[2018-12-10] MEDS: FERROUS SULFATE 325 MG EC TABLET PO SCH ×2 (06:57→18:02)
[2018-12-10 08:05] VITALS: BP 121/64
[2018-12-10] MEDS: DIVALPROEX SODIUM 500 MG DR TABLET PO SCH ×3 (08:12→20:22)
[2018-12-10] MEDS: OMEPRAZOLE 20 MG CAPSULE PO SCH (08:12)
[2018-12-10] MEDS: HALOPERIDOL 5 MG TABLET PO PRN (08:12)
[2018-12-10] MEDS: QUEtiapine FUMARATE 200 MG TABLET PO SCH ×2 (08:13→20:22)
[2018-12-10] MEDS: TOPIRAMATE 100 MG TABLET PO SCH ×3 (08:13→18:02)
[2018-12-10] MEDS: LORATADINE 10 MG TABLET PO SCH (08:13)
[2018-12-10] MEDS: OXYBUTYNIN CHLORIDE 5 MG ER TABLET PO SCH (08:13)
[2018-12-10] MEDS: BENAZEPRIL HCL 5 MG TABLET PO SCH (08:13)
[2018-12-10] MEDS: MAGNESIUM OXIDE 400 MG TABLET PO SCH ×2 (08:13→18:02)
[2018-12-10] MEDS: MULTIVITAMINS WITH MINERALS, THERAPEUTIC TABLET PO SCH (08:13)
[2018-12-10] MEDS: ASPIRIN 81 MG EC TABLET PO SCH (08:13)
[2018-12-10] MEDS: ASCORBIC ACID 500 MG TABLET PO SCH (08:13)
[2018-12-10] MEDS: LevETIRAcetam 250 MG TABLET PO SCH ×2 (08:13→18:02)
[2018-12-10] MEDS: FLUoxetine HCL 20 MG CAPSULE PO SCH (08:13)
[2018-12-10] MEDS: DOCUSATE SODIUM 100 MG CAPSULE PO SCH (08:17)
[2018-12-10 16:21] VITALS: BP 103/65
[2018-12-10] MEDS: INSULIN LISPRO 100 UNITS/ML SQ PRN (17:06)
[2018-12-10 17:13] LABS: GLUCOMETER DEV NAME(LOC) 3E.C; GLUCOSE,POINT OF CARE 154 MG/DL (70-110)
[2018-12-10] MEDS: HALOPERIDOL 10 MG TABLET PO SCH (20:22)
[2018-12-11 06:24] LABS: GLUCOMETER DEV NAME(LOC) 3E.C; GLUCOSE,POINT OF CARE 76 MG/DL (70-110)
[2018-12-11] MEDS: LEVOTHYROXINE SODIUM 100 MCG TABLET PO SCH (07:17)
[2018-12-11] MEDS: FERROUS SULFATE 325 MG EC TABLET PO SCH ×2 (07:18→17:05)
[2018-12-11 08:26] VITALS: BP 92/56
[2018-12-11] MEDS: LORATADINE 10 MG TABLET PO SCH (08:45)
[2018-12-11] MEDS: FLUoxetine HCL 20 MG CAPSULE PO SCH (08:45)
[2018-12-11] MEDS: ASPIRIN 81 MG EC TABLET PO SCH (08:45)
[2018-12-11] MEDS: DOCUSATE SODIUM 100 MG CAPSULE PO SCH (08:45)
[2018-12-11] MEDS: TOPIRAMATE 100 MG TABLET PO SCH ×3 (08:45→17:05)
[2018-12-11] MEDS: OXYBUTYNIN CHLORIDE 5 MG ER TABLET PO SCH (08:45)
[2018-12-11] MEDS: QUEtiapine FUMARATE 200 MG TABLET PO SCH ×2 (08:45→20:02)
[2018-12-11] MEDS: BENAZEPRIL HCL 5 MG TABLET PO SCH (08:45)
[2018-12-11] MEDS: DIVALPROEX SODIUM 500 MG DR TABLET PO SCH ×2 (08:46→20:02)
[2018-12-11] MEDS: MULTIVITAMINS WITH MINERALS, THERAPEUTIC TABLET PO SCH (08:46)
[2018-12-11] MEDS: MAGNESIUM OXIDE 400 MG TABLET PO SCH ×2 (08:46→17:05)
[2018-12-11] MEDS: LevETIRAcetam 250 MG TABLET PO SCH ×2 (08:46→17:05)
[2018-12-11] MEDS: ASCORBIC ACID 500 MG TABLET PO SCH (08:46)
[2018-12-11] MEDS: HALOPERIDOL 5 MG TABLET PO PRN (08:46)
[2018-12-11] MEDS: OMEPRAZOLE 20 MG CAPSULE PO SCH (08:47)
[2018-12-11 17:39] LABS: GLUCOMETER DEV NAME(LOC) 3E.C; GLUCOSE,POINT OF CARE 93 MG/DL (70-110)
[2018-12-11] MEDS: HALOPERIDOL 10 MG TABLET PO SCH (20:02)
[2018-12-12 06:35] LABS: GLUCOMETER DEV NAME(LOC) 3E.C; GLUCOSE,POINT OF CARE 99 MG/DL (70-110)
[2018-12-12] MEDS: LEVOTHYROXINE SODIUM 100 MCG TABLET PO SCH (06:42)
[2018-12-12] MEDS: FERROUS SULFATE 325 MG EC TABLET PO SCH ×2 (06:42→17:38)
[2018-12-12] MEDS: FLUoxetine HCL 20 MG CAPSULE PO SCH (07:36)
[2018-12-12] MEDS: MULTIVITAMINS WITH MINERALS, THERAPEUTIC TABLET PO SCH (07:36)
[2018-12-12] MEDS: DOCUSATE SODIUM 100 MG CAPSULE PO SCH (07:37)
[2018-12-12] MEDS: MAGNESIUM OXIDE 400 MG TABLET PO SCH ×2 (07:37→17:38)
[2018-12-12] MEDS: ASPIRIN 81 MG EC TABLET PO SCH (07:37)
[2018-12-12] MEDS: ASCORBIC ACID 500 MG TABLET PO SCH (07:37)
[2018-12-12] MEDS: LevETIRAcetam 250 MG TABLET PO SCH ×2 (07:37→17:38)
[2018-12-12] MEDS: DIVALPROEX SODIUM 500 MG DR TABLET PO SCH ×2 (07:37→20:28)
[2018-12-12] MEDS: BENAZEPRIL HCL 5 MG TABLET PO SCH (07:37)
[2018-12-12] MEDS: TOPIRAMATE 100 MG TABLET PO SCH ×3 (07:37→17:38)
[2018-12-12] MEDS: OMEPRAZOLE 20 MG CAPSULE PO SCH (07:37)
[2018-12-12] MEDS: QUEtiapine FUMARATE 200 MG TABLET PO SCH ×2 (07:37→20:28)
[2018-12-12] MEDS: LORATADINE 10 MG TABLET PO SCH (07:37)
[2018-12-12] MEDS: HALOPERIDOL 5 MG TABLET PO PRN (07:37)
[2018-12-12] MEDS: OXYBUTYNIN CHLORIDE 5 MG ER TABLET PO SCH (07:39)
[2018-12-12 09:00] VITALS: BP 96/53
[2018-12-12 16:07] VITALS: BP 107/72
[2018-12-12 17:59] LABS: GLUCOMETER DEV NAME(LOC) 3E.C; GLUCOSE,POINT OF CARE 100 MG/DL (70-110)
[2018-12-12] MEDS: HALOPERIDOL 10 MG TABLET PO SCH (20:28)
[2018-12-13] MEDS: INSULIN LISPRO 100 UNITS/ML SQ PRN (06:25)
[2018-12-13 06:29] LABS: GLUCOMETER DEV NAME(LOC) 3E.C; GLUCOSE,POINT OF CARE 146 MG/DL (70-110)
[2018-12-13] MEDS: FERROUS SULFATE 325 MG EC TABLET PO SCH ×2 (07:01→17:19)
[2018-12-13] MEDS: LEVOTHYROXINE SODIUM 100 MCG TABLET PO SCH (07:01)
[2018-12-13] MEDS: LevETIRAcetam 250 MG TABLET PO SCH ×2 (08:50→17:18)
[2018-12-13] MEDS: OMEPRAZOLE 20 MG CAPSULE PO SCH (08:50)
[2018-12-13] MEDS: DIVALPROEX SODIUM 500 MG DR TABLET PO SCH ×2 (08:50→20:13)
[2018-12-13] MEDS: ASCORBIC ACID 500 MG TABLET PO SCH (08:50)
[2018-12-13] MEDS: DOCUSATE SODIUM 100 MG CAPSULE PO SCH (08:51)
[2018-12-13] MEDS: MAGNESIUM OXIDE 400 MG TABLET PO SCH ×2 (08:51→17:18)
[2018-12-13] MEDS: FLUoxetine HCL 20 MG CAPSULE PO SCH (08:51)
[2018-12-13] MEDS: QUEtiapine FUMARATE 200 MG TABLET PO SCH ×2 (08:51→20:12)
[2018-12-13] MEDS: TOPIRAMATE 100 MG TABLET PO SCH ×3 (08:51→17:18)
[2018-12-13] MEDS: OXYBUTYNIN CHLORIDE 5 MG ER TABLET PO SCH (08:52)
[2018-12-13] MEDS: ASPIRIN 81 MG EC TABLET PO SCH (08:52)
[2018-12-13] MEDS: LORATADINE 10 MG TABLET PO SCH (08:52)
[2018-12-13] MEDS: MULTIVITAMINS WITH MINERALS, THERAPEUTIC TABLET PO SCH (08:52)
[2018-12-13] MEDS: BENAZEPRIL HCL 5 MG TABLET PO SCH (08:53)
[2018-12-13 09:00] VITALS: BP 122/94
[2018-12-13 17:41] LABS: GLUCOMETER DEV NAME(LOC) 3E.C; GLUCOSE,POINT OF CARE 97 MG/DL (70-110)
[2018-12-13 19:04] VITALS: BP 107/67
[2018-12-13] MEDS: HALOPERIDOL 10 MG TABLET PO SCH (20:13)
[2018-12-14 06:09] LABS: GLUCOMETER DEV NAME(LOC) 3E.C; GLUCOSE,POINT OF CARE 93 MG/DL (70-110)
[2018-12-14] MEDS: LEVOTHYROXINE SODIUM 100 MCG TABLET PO SCH (07:01)
[2018-12-14] MEDS: FERROUS SULFATE 325 MG EC TABLET PO SCH ×2 (07:01→16:42)
[2018-12-14] MEDS: INSULIN LISPRO 100 UNITS/ML SQ PRN (07:03)
[2018-12-14] MEDS: QUEtiapine FUMARATE 200 MG TABLET PO SCH ×2 (08:03→20:01)
[2018-12-14] MEDS: DIVALPROEX SODIUM 500 MG DR TABLET PO SCH ×2 (08:03→20:01)
[2018-12-14] MEDS: OXYBUTYNIN CHLORIDE 5 MG ER TABLET PO SCH (08:03)
[2018-12-14] MEDS: FLUoxetine HCL 20 MG CAPSULE PO SCH (08:03)
[2018-12-14] MEDS: ASCORBIC ACID 500 MG TABLET PO SCH (08:03)
[2018-12-14] MEDS: TOPIRAMATE 100 MG TABLET PO SCH ×3 (08:04→16:42)
[2018-12-14] MEDS: LevETIRAcetam 250 MG TABLET PO SCH ×2 (08:04→16:41)
[2018-12-14] MEDS: LORATADINE 10 MG TABLET PO SCH (08:04)
[2018-12-14] MEDS: BENAZEPRIL HCL 5 MG TABLET PO SCH (08:04)
[2018-12-14] MEDS: DOCUSATE SODIUM 100 MG CAPSULE PO SCH (08:04)
[2018-12-14] MEDS: OMEPRAZOLE 20 MG CAPSULE PO SCH (08:04)
[2018-12-14] MEDS: MULTIVITAMINS WITH MINERALS, THERAPEUTIC TABLET PO SCH (08:04)
[2018-12-14] MEDS: MAGNESIUM OXIDE 400 MG TABLET PO SCH ×2 (08:04→16:42)
[2018-12-14] MEDS: ASPIRIN 81 MG EC TABLET PO SCH (08:04)
[2018-12-14 08:20] VITALS: BP 107/52
[2018-12-14 18:09] LABS: GLUCOMETER DEV NAME(LOC) 3E.C; GLUCOSE,POINT OF CARE 101 MG/DL (70-110)
[2018-12-14 19:31] VITALS: BP 101/61
[2018-12-14] MEDS: HALOPERIDOL 10 MG TABLET PO SCH (20:01)
[2018-12-15] MEDS: LEVOTHYROXINE SODIUM 100 MCG TABLET PO SCH (06:51)
[2018-12-15] MEDS: FERROUS SULFATE 325 MG EC TABLET PO SCH ×2 (06:51→16:08)
[2018-12-15] MEDS: OXYBUTYNIN CHLORIDE 5 MG ER TABLET PO SCH (07:47)
[2018-12-15] MEDS: ASPIRIN 81 MG EC TABLET PO SCH (07:48)
[2018-12-15] MEDS: FLUoxetine HCL 20 MG CAPSULE PO SCH (07:48)
[2018-12-15] MEDS: LevETIRAcetam 250 MG TABLET PO SCH ×2 (07:48→16:08)
[2018-12-15] MEDS: DIVALPROEX SODIUM 500 MG DR TABLET PO SCH ×2 (07:48→20:15)
[2018-12-15] MEDS: DOCUSATE SODIUM 100 MG CAPSULE PO SCH (07:48)
[2018-12-15] MEDS: OMEPRAZOLE 20 MG CAPSULE PO SCH (07:48)
[2018-12-15] MEDS: ASCORBIC ACID 500 MG TABLET PO SCH (07:48)
[2018-12-15] MEDS: TOPIRAMATE 100 MG TABLET PO SCH ×3 (07:48→16:08)
[2018-12-15] MEDS: LORATADINE 10 MG TABLET PO SCH (07:48)
[2018-12-15] MEDS: MAGNESIUM OXIDE 400 MG TABLET PO SCH ×2 (07:48→16:08)
[2018-12-15] MEDS: BENAZEPRIL HCL 5 MG TABLET PO SCH (07:48)
[2018-12-15] MEDS: MULTIVITAMINS WITH MINERALS, THERAPEUTIC TABLET PO SCH (07:48)
[2018-12-15] MEDS: QUEtiapine FUMARATE 200 MG TABLET PO SCH ×2 (07:48→20:15)
[2018-12-15 08:30] VITALS: BP 110/64
[2018-12-15 16:05] VITALS: BP 114/76
[2018-12-15] MEDS: MAGNESIUM HYDROXIDE SUSPENSION 30 ML UDCUP PO PRN (17:30)
[2018-12-15 17:45] LABS: GLUCOMETER DEV NAME(LOC) 3E.C; GLUCOSE,POINT OF CARE 116 MG/DL (70-110)
[2018-12-15] MEDS: HALOPERIDOL 10 MG TABLET PO SCH (20:15)
[2018-12-16 06:29] LABS: GLUCOMETER DEV NAME(LOC) 3E.C; GLUCOSE,POINT OF CARE 110 MG/DL (70-110)
[2018-12-16 06:29] LABS: HEMATOCRIT 31.5 % (36-46); HEMOGLOBIN 10.5 g/dL (12.0-16.0); MEAN CORPUSCULAR HEMOGLOBIN 34.7 pg (26.0-34.0); MEAN CORPUSCULAR HGB CONC 33.3 G/dL (31.0-37.0); MEAN CORPUSCULAR VOLUME 104 fL (80-100); PLATELET COUNT (AUTO) 283 K/uL (150-450); RED BLOOD CELL COUNT(AUTO) 3.02 MIL/uL (4.00-5.20); RED CELL DISTRIBUTION WIDTH 13.7 % (11.5-14.5)
[2018-12-16 06:40] LABS: LITHIUM < 0.20 mmol/L (0.60-1.20)
[2018-12-16] MEDS: LEVOTHYROXINE SODIUM 100 MCG TABLET PO SCH (06:44)
[2018-12-16] MEDS: FERROUS SULFATE 325 MG EC TABLET PO SCH ×2 (06:44→17:40)
[2018-12-16 06:53] LABS: ANION GAP 8 mmol/L (8-16); CALCIUM, TOTAL 8.7 mg/dL (8.8-10.5); CARBON DIOXIDE 25 mmol/L (22-29); CHLORIDE 105 mmol/L (98-107); CHOL/HDL RATIO 4.5 (3.9-5.7); CHOLESTEROL 179 mg/dL (131-200); CREATININE 0.68 mg/dL (0.60-1.30); GLOMERULAR FILTR. RATE CALC > 60 mL/min (>60); GLUCOSE,RANDOM 109 mg/dL (70-110); HDL CHOLESTEROL 40 mg/dL (40-60); LDL CHOL (CALC.) 116 mg/dL (0-130); SODIUM SERUM 138 mmol/L (136-145); THYROID STIMULATING HORMONE 8.14 uIU/mL (0.36-3.74); TRIGLYCERIDES 117 mg/dL (15-150); UREA NITROGEN, BLOOD 25 mg/dL (7-18)
[2018-12-16 07:28] LABS: BAND NEUTROPHILS % (MANUAL) 6 % (0-5); LYMPHOCYTES % (MANUAL) 43 % (22-44); MONOCYTES % (MANUAL) 6 % (2-9); SEGMENTED NEUTROPHILS % 45 % (40-70)
[2018-12-16] MEDS ORDERED: MAGNESIUM CITRATE 300 ML ORAL SOLUTION PO ONE (08:00)
[2018-12-16] MEDS: DIVALPROEX SODIUM 500 MG DR TABLET PO SCH ×2 (08:12→20:09)
[2018-12-16] MEDS: ASCORBIC ACID 500 MG TABLET PO SCH (08:13)
[2018-12-16] MEDS: ASPIRIN 81 MG EC TABLET PO SCH (08:13)
[2018-12-16] MEDS: MAGNESIUM OXIDE 400 MG TABLET PO SCH ×2 (08:13→17:40)
[2018-12-16] MEDS: TOPIRAMATE 100 MG TABLET PO SCH ×3 (08:13→17:40)
[2018-12-16] MEDS: LORATADINE 10 MG TABLET PO SCH (08:13)
[2018-12-16] MEDS: MULTIVITAMINS WITH MINERALS, THERAPEUTIC TABLET PO SCH (08:13)
[2018-12-16] MEDS: DOCUSATE SODIUM 100 MG CAPSULE PO SCH (08:13)
[2018-12-16] MEDS: QUEtiapine FUMARATE 200 MG TABLET PO SCH ×2 (08:13→20:09)
[2018-12-16] MEDS: BENAZEPRIL HCL 5 MG TABLET PO SCH (08:13)
[2018-12-16] MEDS: OMEPRAZOLE 20 MG CAPSULE PO SCH (08:13)
[2018-12-16] MEDS: LevETIRAcetam 250 MG TABLET PO SCH ×2 (08:13→17:40)
[2018-12-16] MEDS: FLUoxetine HCL 20 MG CAPSULE PO SCH (08:13)
[2018-12-16] MEDS: OXYBUTYNIN CHLORIDE 5 MG ER TABLET PO SCH (08:13)
[2018-12-16 16:06] VITALS: BP 107/77
[2018-12-16 17:45] LABS: GLUCOMETER DEV NAME(LOC) 3E.C; GLUCOSE,POINT OF CARE 159 MG/DL (70-110)
[2018-12-16] MEDS: INSULIN LISPRO 100 UNITS/ML SQ PRN (17:45)
[2018-12-16] MEDS: HALOPERIDOL 10 MG TABLET PO SCH (20:09)
[2018-12-17 06:39] LABS: GLUCOMETER DEV NAME(LOC) 3E.C; GLUCOSE,POINT OF CARE 122 MG/DL (70-110)
[2018-12-17] MEDS: LEVOTHYROXINE SODIUM 125 MCG TABLET PO SCH (06:40)
[2018-12-17] MEDS: FERROUS SULFATE 325 MG EC TABLET PO SCH ×2 (06:40→17:16)
[2018-12-17] MEDS: OXYBUTYNIN CHLORIDE 5 MG ER TABLET PO SCH (08:01)
[2018-12-17] MEDS: FLUoxetine HCL 20 MG CAPSULE PO SCH (08:01)
[2018-12-17] MEDS: DIVALPROEX SODIUM 500 MG DR TABLET PO SCH ×2 (08:01→20:57)
[2018-12-17] MEDS: MULTIVITAMINS WITH MINERALS, THERAPEUTIC TABLET PO SCH (08:01)
[2018-12-17] MEDS: ASPIRIN 81 MG EC TABLET PO SCH (08:01)
[2018-12-17] MEDS: LevETIRAcetam 250 MG TABLET PO SCH ×2 (08:02→17:16)
[2018-12-17] MEDS: LORATADINE 10 MG TABLET PO SCH (08:02)
[2018-12-17] MEDS: QUEtiapine FUMARATE 200 MG TABLET PO SCH ×2 (08:02→20:57)
[2018-12-17] MEDS: MAGNESIUM OXIDE 400 MG TABLET PO SCH ×2 (08:02→17:16)
[2018-12-17] MEDS: OMEPRAZOLE 20 MG CAPSULE PO SCH (08:02)
[2018-12-17] MEDS: TOPIRAMATE 100 MG TABLET PO SCH ×3 (08:02→17:16)
[2018-12-17] MEDS: DOCUSATE SODIUM 100 MG CAPSULE PO SCH (08:03)
[2018-12-17] MEDS: BENAZEPRIL HCL 5 MG TABLET PO SCH (08:03)
[2018-12-17] MEDS: ASCORBIC ACID 500 MG TABLET PO SCH (08:03)
[2018-12-17 09:35] VITALS: BP 113/92
[2018-12-17 17:35] LABS: GLUCOMETER DEV NAME(LOC) 3E.C; GLUCOSE,POINT OF CARE 112 MG/DL (70-110)
[2018-12-17] MEDS: HALOPERIDOL 10 MG TABLET PO SCH (20:57)
[2018-12-18 06:14] LABS: GLUCOMETER DEV NAME(LOC) 3E.C; GLUCOSE,POINT OF CARE 91 MG/DL (70-110)
[2018-12-18] MEDS: FERROUS SULFATE 325 MG EC TABLET PO SCH ×2 (07:05→16:41)
[2018-12-18] MEDS: LEVOTHYROXINE SODIUM 125 MCG TABLET PO SCH (07:05)
[2018-12-18] MEDS: INSULIN LISPRO 100 UNITS/ML SQ PRN (07:06)
[2018-12-18] MEDS: ASPIRIN 81 MG EC TABLET PO SCH (07:58)
[2018-12-18] MEDS: OXYBUTYNIN CHLORIDE 5 MG ER TABLET PO SCH (07:58)
[2018-12-18] MEDS: OMEPRAZOLE 20 MG CAPSULE PO SCH (07:58)
[2018-12-18] MEDS: BENAZEPRIL HCL 5 MG TABLET PO SCH (07:58)
[2018-12-18] MEDS: LevETIRAcetam 250 MG TABLET PO SCH ×2 (07:58→16:40)
[2018-12-18] MEDS: DOCUSATE SODIUM 100 MG CAPSULE PO SCH (07:58)
[2018-12-18] MEDS: ASCORBIC ACID 500 MG TABLET PO SCH (07:58)
[2018-12-18] MEDS: MULTIVITAMINS WITH MINERALS, THERAPEUTIC TABLET PO SCH (07:58)
[2018-12-18] MEDS: LORATADINE 10 MG TABLET PO SCH (07:59)
[2018-12-18] MEDS: QUEtiapine FUMARATE 200 MG TABLET PO SCH ×2 (07:59→20:07)
[2018-12-18] MEDS: FLUoxetine HCL 20 MG CAPSULE PO SCH (07:59)
[2018-12-18] MEDS: TOPIRAMATE 100 MG TABLET PO SCH ×3 (07:59→16:41)
[2018-12-18] MEDS: DIVALPROEX SODIUM 500 MG DR TABLET PO SCH ×2 (07:59→20:07)
[2018-12-18] MEDS: MAGNESIUM OXIDE 400 MG TABLET PO SCH ×2 (07:59→16:41)
[2018-12-18 09:00] VITALS: BP 95/41
[2018-12-18 16:04] VITALS: BP 109/73
[2018-12-18 17:44] LABS: GLUCOMETER DEV NAME(LOC) 3E.C; GLUCOSE,POINT OF CARE 106 MG/DL (70-110)
[2018-12-18] MEDS: HALOPERIDOL 10 MG TABLET PO SCH (20:06)
[2018-12-19 06:04] LABS: GLUCOMETER DEV NAME(LOC) 3E.C; GLUCOSE,POINT OF CARE 104 MG/DL (70-110)
[2018-12-19] MEDS: FERROUS SULFATE 325 MG EC TABLET PO SCH ×2 (06:55→17:13)
[2018-12-19] MEDS: LEVOTHYROXINE SODIUM 125 MCG TABLET PO SCH (06:55)
[2018-12-19] MEDS: OMEPRAZOLE 20 MG CAPSULE PO SCH (07:59)
[2018-12-19] MEDS: MAGNESIUM OXIDE 400 MG TABLET PO SCH ×2 (07:59→17:13)
[2018-12-19] MEDS: DIVALPROEX SODIUM 500 MG DR TABLET PO SCH ×2 (07:59→20:01)
[2018-12-19] MEDS: FLUoxetine HCL 20 MG CAPSULE PO SCH (07:59)
[2018-12-19] MEDS: MULTIVITAMINS WITH MINERALS, THERAPEUTIC TABLET PO SCH (07:59)
[2018-12-19] MEDS: LevETIRAcetam 250 MG TABLET PO SCH ×2 (07:59→17:14)
[2018-12-19] MEDS: ASCORBIC ACID 500 MG TABLET PO SCH (07:59)
[2018-12-19] MEDS: DOCUSATE SODIUM 100 MG CAPSULE PO SCH (07:59)
[2018-12-19] MEDS: OXYBUTYNIN CHLORIDE 5 MG ER TABLET PO SCH (08:00)
[2018-12-19] MEDS: ASPIRIN 81 MG EC TABLET PO SCH (08:00)
[2018-12-19] MEDS: LORATADINE 10 MG TABLET PO SCH (08:00)
[2018-12-19] MEDS: BENAZEPRIL HCL 5 MG TABLET PO SCH (08:00)
[2018-12-19] MEDS: TOPIRAMATE 100 MG TABLET PO SCH ×3 (08:00→17:15)
[2018-12-19] MEDS: QUEtiapine FUMARATE 200 MG TABLET PO SCH ×2 (08:00→20:01)
[2018-12-19 08:10] VITALS: BP 135/55
[2018-12-19 17:35] LABS: GLUCOMETER DEV NAME(LOC) 3E.C; GLUCOSE,POINT OF CARE 97 MG/DL (70-110)
[2018-12-19] MEDS: HALOPERIDOL 10 MG TABLET PO SCH (20:01)
[2018-12-20] MEDS: LEVOTHYROXINE SODIUM 125 MCG TABLET PO SCH (06:47)
[2018-12-20] MEDS: FERROUS SULFATE 325 MG EC TABLET PO SCH ×2 (06:47→17:15)
[2018-12-20] MEDS: FLUoxetine HCL 20 MG CAPSULE PO SCH (08:14)
[2018-12-20] MEDS: MAGNESIUM OXIDE 400 MG TABLET PO SCH ×2 (08:14→17:16)
[2018-12-20] MEDS: LevETIRAcetam 250 MG TABLET PO SCH ×2 (08:15→17:15)
[2018-12-20] MEDS: DIVALPROEX SODIUM 500 MG DR TABLET PO SCH ×2 (08:15→20:13)
[2018-12-20] MEDS: HALOPERIDOL 5 MG TABLET PO PRN (08:15)
[2018-12-20] MEDS: ASPIRIN 81 MG EC TABLET PO SCH (08:15)
[2018-12-20] MEDS: LORATADINE 10 MG TABLET PO SCH (08:15)
[2018-12-20] MEDS: OMEPRAZOLE 20 MG CAPSULE PO SCH (08:15)
[2018-12-20] MEDS: OXYBUTYNIN CHLORIDE 5 MG ER TABLET PO SCH (08:15)
[2018-12-20] MEDS: QUEtiapine FUMARATE 200 MG TABLET PO SCH ×2 (08:16→20:13)
[2018-12-20] MEDS: TOPIRAMATE 100 MG TABLET PO SCH ×3 (08:16→17:15)
[2018-12-20] MEDS: ASCORBIC ACID 500 MG TABLET PO SCH (08:17)
[2018-12-20] MEDS: DOCUSATE SODIUM 100 MG CAPSULE PO SCH (08:19)
[2018-12-20] MEDS: MULTIVITAMINS WITH MINERALS, THERAPEUTIC TABLET PO SCH (08:19)
[2018-12-20] MEDS: CHLORHEXIDINE GLUCONATE 4% 118 ML TOPICAL LIQUID TP SCH (15:12)
[2018-12-20 16:13] VITALS: BP 119/72
[2018-12-20 17:35] LABS: GLUCOMETER DEV NAME(LOC) 3E.I; GLUCOSE,POINT OF CARE 102 MG/DL (70-110)
[2018-12-20] MEDS: HALOPERIDOL 10 MG TABLET PO SCH (20:13)
[2018-12-21 05:32] VITALS: BP 132/72
[2018-12-21 05:45] LABS: GLUCOMETER DEV NAME(LOC) 3E.I; GLUCOSE,POINT OF CARE 81 MG/DL (70-110)
[2018-12-21] MEDS: LEVOTHYROXINE SODIUM 125 MCG TABLET PO SCH (07:00)
[2018-12-21] MEDS: FERROUS SULFATE 325 MG EC TABLET PO SCH ×2 (07:01→17:23)
[2018-12-21] MEDS: INSULIN LISPRO 100 UNITS/ML SQ PRN (07:02)
[2018-12-21] MEDS ORDERED: HALOPERIDOL LACTATE 5 MG/ML VIAL IM ONE (08:15)
[2018-12-21] MEDS ORDERED: LORazepam 2 MG/ML VIAL IM ONE (08:15)
[2018-12-21] MEDS: DIVALPROEX SODIUM 500 MG DR TABLET PO SCH ×2 (11:50→21:52)
[2018-12-21] MEDS: ASPIRIN 81 MG EC TABLET PO SCH (11:50)
[2018-12-21] MEDS: FLUoxetine HCL 20 MG CAPSULE PO SCH (11:50)
[2018-12-21] MEDS: LORATADINE 10 MG TABLET PO SCH (11:51)
[2018-12-21] MEDS: LevETIRAcetam 250 MG TABLET PO SCH ×2 (11:51→17:23)
[2018-12-21] MEDS: ASCORBIC ACID 500 MG TABLET PO SCH (11:52)
[2018-12-21] MEDS: OMEPRAZOLE 20 MG CAPSULE PO SCH (11:52)
[2018-12-21] MEDS: MULTIVITAMINS WITH MINERALS, THERAPEUTIC TABLET PO SCH (11:52)
[2018-12-21] MEDS: DOCUSATE SODIUM 100 MG CAPSULE PO SCH (11:52)
[2018-12-21] MEDS: QUEtiapine FUMARATE 200 MG TABLET PO SCH ×2 (11:52→21:52)
[2018-12-21] MEDS: TOPIRAMATE 100 MG TABLET PO SCH ×3 (11:52→17:23)
[2018-12-21] MEDS: MAGNESIUM OXIDE 400 MG TABLET PO SCH ×2 (11:52→17:23)
[2018-12-21] MEDS: OXYBUTYNIN CHLORIDE 5 MG ER TABLET PO SCH (11:52)
[2018-12-21] MEDS: CHLORHEXIDINE GLUCONATE 4% 118 ML TOPICAL LIQUID TP SCH (11:53)
[2018-12-21 16:11] VITALS: BP 123/79
[2018-12-21 17:09] LABS: GLUCOMETER DEV NAME(LOC) 3E.I; GLUCOSE,POINT OF CARE 131 MG/DL (70-110)
[2018-12-21] MEDS: HALOPERIDOL 10 MG TABLET PO SCH (21:52)
[2018-12-22 05:35] LABS: GLUCOMETER DEV NAME(LOC) 3E.I; GLUCOSE,POINT OF CARE 104 MG/DL (70-110)
[2018-12-22] MEDS: LEVOTHYROXINE SODIUM 125 MCG TABLET PO SCH (06:25)
[2018-12-22] MEDS: FERROUS SULFATE 325 MG EC TABLET PO SCH ×2 (06:26→17:22)
[2018-12-22] MEDS: INSULIN LISPRO 100 UNITS/ML SQ PRN (06:42)
[2018-12-22] MEDS: ASPIRIN 81 MG EC TABLET PO SCH (10:27)
[2018-12-22] MEDS: FLUoxetine HCL 20 MG CAPSULE PO SCH (10:27)
[2018-12-22] MEDS: MULTIVITAMINS WITH MINERALS, THERAPEUTIC TABLET PO SCH (10:27)
[2018-12-22] MEDS: TOPIRAMATE 100 MG TABLET PO SCH ×3 (10:28→17:22)
[2018-12-22] MEDS: OXYBUTYNIN CHLORIDE 5 MG ER TABLET PO SCH (10:28)
[2018-12-22] MEDS: QUEtiapine FUMARATE 200 MG TABLET PO SCH ×2 (10:28→21:01)
[2018-12-22] MEDS: ASCORBIC ACID 500 MG TABLET PO SCH (10:28)
[2018-12-22] MEDS: DIVALPROEX SODIUM 500 MG DR TABLET PO SCH ×2 (10:28→21:01)
[2018-12-22] MEDS: OMEPRAZOLE 20 MG CAPSULE PO SCH (10:29)
[2018-12-22] MEDS: LevETIRAcetam 250 MG TABLET PO SCH ×2 (10:29→17:22)
[2018-12-22] MEDS: MAGNESIUM OXIDE 400 MG TABLET PO SCH ×2 (10:29→17:22)
[2018-12-22] MEDS: DOCUSATE SODIUM 100 MG CAPSULE PO SCH (10:29)
[2018-12-22] MEDS: LORATADINE 10 MG TABLET PO SCH (10:29)
[2018-12-22] MEDS: CHLORHEXIDINE GLUCONATE 4% 118 ML TOPICAL LIQUID TP SCH (10:51)
[2018-12-22 16:05] VITALS: BP 109/81
[2018-12-22 16:44] LABS: GLUCOMETER DEV NAME(LOC) 3E.I; GLUCOSE,POINT OF CARE 138 MG/DL (70-110)
[2018-12-22] MEDS: HALOPERIDOL 10 MG TABLET PO SCH (21:01)
[2018-12-23 05:39] LABS: GLUCOMETER DEV NAME(LOC) 3E.I; GLUCOSE,POINT OF CARE 112 MG/DL (70-110)
[2018-12-23] MEDS: FERROUS SULFATE 325 MG EC TABLET PO SCH ×2 (06:40→16:24)
[2018-12-23] MEDS: LEVOTHYROXINE SODIUM 125 MCG TABLET PO SCH (06:40)
[2018-12-23] MEDS: OMEPRAZOLE 20 MG CAPSULE PO SCH (08:32)
[2018-12-23] MEDS: ASPIRIN 81 MG EC TABLET PO SCH (08:32)
[2018-12-23] MEDS: ASCORBIC ACID 500 MG TABLET PO SCH (08:32)
[2018-12-23] MEDS: LevETIRAcetam 250 MG TABLET PO SCH ×2 (08:33→16:25)
[2018-12-23] MEDS: MAGNESIUM OXIDE 400 MG TABLET PO SCH ×2 (08:33→16:24)
[2018-12-23] MEDS: FLUoxetine HCL 20 MG CAPSULE PO SCH (08:33)
[2018-12-23] MEDS: DOCUSATE SODIUM 100 MG CAPSULE PO SCH (08:33)
[2018-12-23] MEDS: DIVALPROEX SODIUM 500 MG DR TABLET PO SCH ×2 (08:33→20:12)
[2018-12-23] MEDS: OXYBUTYNIN CHLORIDE 5 MG ER TABLET PO SCH (08:33)
[2018-12-23] MEDS: QUEtiapine FUMARATE 200 MG TABLET PO SCH ×2 (08:33→20:12)
[2018-12-23] MEDS: MULTIVITAMINS WITH MINERALS, THERAPEUTIC TABLET PO SCH (08:33)
[2018-12-23] MEDS: LORATADINE 10 MG TABLET PO SCH (08:34)
[2018-12-23] MEDS: TOPIRAMATE 100 MG TABLET PO SCH ×3 (08:34→16:24)
[2018-12-23 10:26] LABS: BASOPHILS % (AUTO) 0.7 % (0.0-2.0); EOSINOPHILS % (AUTO) 0.9 % (1.0-6.0); HEMATOCRIT 34.6 % (36-46); HEMOGLOBIN 11.5 g/dL (12.0-16.0); LYMPHOCYTES # (AUTO) 2.4 K/uL (1.0-4.8); LYMPHOCYTES % (AUTO) 41.9 % (22.0-44.0); MEAN CORPUSCULAR HEMOGLOBIN 34.8 pg (26.0-34.0); MEAN CORPUSCULAR HGB CONC 33.4 G/dL (31.0-37.0); MEAN CORPUSCULAR VOLUME 104 fL (80-100); MONOCYTES # (AUTO) 0.6 K/uL (0.1-1.0); MONOCYTES % (AUTO) 10.4 % (2.0-9.0); NEUTROPHILS # (AUTO) 2.7 K/uL (1.8-7.7); NEUTROPHILS % (AUTO) 46.1 % (40.0-70.0); PLATELET COUNT (AUTO) 213 K/uL (150-450); RED BLOOD CELL COUNT(AUTO) 3.32 MIL/uL (4.00-5.20); RED CELL DISTRIBUTION WIDTH 13.8 % (11.5-14.5)
[2018-12-23 10:29] VITALS: BP 143/88
[2018-12-23] MEDS: CHLORHEXIDINE GLUCONATE 4% 118 ML TOPICAL LIQUID TP SCH (10:34)
[2018-12-23 10:46] LABS: ANION GAP 8 mmol/L (8-16); CALCIUM, TOTAL 9.4 mg/dL (8.8-10.5); CARBON DIOXIDE 26 mmol/L (22-29); CHLORIDE 104 mmol/L (98-107); CREATININE 0.62 mg/dL (0.60-1.30); GLOMERULAR FILTR. RATE CALC > 60 mL/min (>60); GLUCOSE,RANDOM 121 mg/dL (70-110); SODIUM SERUM 138 mmol/L (136-145); UREA NITROGEN, BLOOD 17 mg/dL (7-18)
[2018-12-23 10:53] LABS: HEMOGLOBIN A1C 5.5 % (4.5-6.2)
[2018-12-23 11:02] LABS: ALANINE AMINOTRANSFERASE 98 U/L (12-78); ALBUMIN 2.6 g/dL (3.4-5.0); ALKALINE PHOSPHATASE 95 U/L (46-116); ASPARTATE AMINOTRANSFERASE 46 U/L (15-37); BILIRUBIN,TOTAL 0.4 mg/dL (0.1-1.0); CHOLESTEROL 186 mg/dL (131-200); HDL CHOLESTEROL 46 mg/dL (40-60); LDL CHOL (CALC.) 117 mg/dL (0-130); THYROID STIMULATING HORMONE 7.27 uIU/mL (0.36-3.74); TOTAL PROTEIN, SERUM 6.8 g/dL (6.4-8.2); TRIGLYCERIDES 115 mg/dL (15-150); VALPROIC ACID 99 mcg/mL (50-100)
[2018-12-23 16:07] VITALS: BP 121/77
[2018-12-23 17:03] LABS: GLUCOMETER DEV NAME(LOC) 3E.I; GLUCOSE,POINT OF CARE 114 MG/DL (70-110)
[2018-12-23] MEDS: HALOPERIDOL 10 MG TABLET PO SCH (20:12)
[2018-12-24 05:29] LABS: GLUCOMETER DEV NAME(LOC) 3E.I; GLUCOSE,POINT OF CARE 135 MG/DL (70-110)
[2018-12-24] MEDS: FERROUS SULFATE 325 MG EC TABLET PO SCH ×2 (06:57→17:13)
[2018-12-24] MEDS: LEVOTHYROXINE SODIUM 125 MCG TABLET PO SCH (06:57)
[2018-12-24] MEDS: INSULIN LISPRO 100 UNITS/ML SQ PRN (07:00)
[2018-12-24 08:05] VITALS: BP 119/79
[2018-12-24] MEDS: TOPIRAMATE 100 MG TABLET PO SCH ×3 (08:20→17:13)
[2018-12-24] MEDS: ASCORBIC ACID 500 MG TABLET PO SCH (08:20)
[2018-12-24] MEDS: DIVALPROEX SODIUM 500 MG DR TABLET PO SCH ×2 (08:20→20:06)
[2018-12-24] MEDS: MULTIVITAMINS WITH MINERALS, THERAPEUTIC TABLET PO SCH (08:20)
[2018-12-24] MEDS: LORATADINE 10 MG TABLET PO SCH (08:21)
[2018-12-24] MEDS: ASPIRIN 81 MG EC TABLET PO SCH (08:21)
[2018-12-24] MEDS: FLUoxetine HCL 20 MG CAPSULE PO SCH (08:21)
[2018-12-24] MEDS: OMEPRAZOLE 20 MG CAPSULE PO SCH (08:21)
[2018-12-24] MEDS: DOCUSATE SODIUM 100 MG CAPSULE PO SCH (08:21)
[2018-12-24] MEDS: LevETIRAcetam 250 MG TABLET PO SCH ×2 (08:21→17:13)
[2018-12-24] MEDS: QUEtiapine FUMARATE 200 MG TABLET PO SCH ×2 (08:21→20:06)
[2018-12-24] MEDS: OXYBUTYNIN CHLORIDE 5 MG ER TABLET PO SCH (08:21)
[2018-12-24] MEDS: MAGNESIUM OXIDE 400 MG TABLET PO SCH ×2 (08:21→17:13)
[2018-12-24] MEDS ORDERED: MAGNESIUM CITRATE 300 ML ORAL SOLUTION PO ONE (10:30)
[2018-12-24] MEDS: CHLORHEXIDINE GLUCONATE 4% 118 ML TOPICAL LIQUID TP SCH (11:30)
[2018-12-24 16:13] VITALS: BP 116/77
[2018-12-24 17:29] LABS: GLUCOMETER DEV NAME(LOC) 3E.I; GLUCOSE,POINT OF CARE 133 MG/DL (70-110)
[2018-12-24] MEDS: HALOPERIDOL 10 MG TABLET PO SCH (20:06)
[2018-12-25] MEDS: LEVOTHYROXINE SODIUM 125 MCG TABLET PO SCH (06:42)
[2018-12-25] MEDS: FERROUS SULFATE 325 MG EC TABLET PO SCH ×2 (06:52→17:30)
[2018-12-25] MEDS ORDERED: HALOPERIDOL LACTATE 5 MG/ML VIAL IM ONE (08:15)
[2018-12-25] MEDS ORDERED: LORazepam 2 MG/ML VIAL IM ONE (08:15)
[2018-12-25 08:50] VITALS: BP 106/58
[2018-12-25] MEDS: LevETIRAcetam 250 MG TABLET PO SCH ×2 (10:14→17:55)
[2018-12-25] MEDS: FLUoxetine HCL 20 MG CAPSULE PO SCH (10:14)
[2018-12-25] MEDS: DIVALPROEX SODIUM 500 MG DR TABLET PO SCH ×2 (10:14→20:26)
[2018-12-25] MEDS: MULTIVITAMINS WITH MINERALS, THERAPEUTIC TABLET PO SCH (10:15)
[2018-12-25] MEDS: LORATADINE 10 MG TABLET PO SCH (10:15)
[2018-12-25] MEDS: OXYBUTYNIN CHLORIDE 5 MG ER TABLET PO SCH (10:15)
[2018-12-25] MEDS: OMEPRAZOLE 20 MG CAPSULE PO SCH (10:15)
[2018-12-25] MEDS: ASPIRIN 81 MG EC TABLET PO SCH (10:15)
[2018-12-25] MEDS: HALOPERIDOL 5 MG TABLET PO PRN (10:15)
[2018-12-25] MEDS: DOCUSATE SODIUM 100 MG CAPSULE PO SCH (10:15)
[2018-12-25] MEDS: MAGNESIUM OXIDE 400 MG TABLET PO SCH ×2 (10:15→17:55)
[2018-12-25] MEDS: TOPIRAMATE 100 MG TABLET PO SCH ×3 (10:15→17:55)
[2018-12-25] MEDS: QUEtiapine FUMARATE 200 MG TABLET PO SCH ×2 (10:15→20:26)
[2018-12-25] MEDS: ASCORBIC ACID 500 MG TABLET PO SCH (10:15)
[2018-12-25] MEDS: CHLORHEXIDINE GLUCONATE 4% 118 ML TOPICAL LIQUID TP SCH (10:16)
[2018-12-25 17:09] LABS: GLUCOMETER DEV NAME(LOC) 3E.I; GLUCOSE,POINT OF CARE 100 MG/DL (70-110)
[2018-12-25 18:13] VITALS: BP 132/80
[2018-12-25] MEDS: HALOPERIDOL 10 MG TABLET PO SCH (20:26)
[2018-12-26 05:29] LABS: GLUCOMETER DEV NAME(LOC) 3E.I; GLUCOSE,POINT OF CARE 115 MG/DL (70-110)
[2018-12-26] MEDS: FERROUS SULFATE 325 MG EC TABLET PO SCH ×2 (06:37→17:32)
[2018-12-26] MEDS: LEVOTHYROXINE SODIUM 125 MCG TABLET PO SCH (06:37)
[2018-12-26] MEDS: QUEtiapine FUMARATE 200 MG TABLET PO SCH ×2 (08:00→20:11)
[2018-12-26] MEDS: ASPIRIN 81 MG EC TABLET PO SCH (08:00)
[2018-12-26] MEDS: DOCUSATE SODIUM 100 MG CAPSULE PO SCH (08:00)
[2018-12-26] MEDS: FLUoxetine HCL 20 MG CAPSULE PO SCH (08:00)
[2018-12-26] MEDS: OMEPRAZOLE 20 MG CAPSULE PO SCH (08:01)
[2018-12-26] MEDS: OXYBUTYNIN CHLORIDE 5 MG ER TABLET PO SCH (08:01)
[2018-12-26] MEDS: MULTIVITAMINS WITH MINERALS, THERAPEUTIC TABLET PO SCH (08:01)
[2018-12-26] MEDS: DIVALPROEX SODIUM 500 MG DR TABLET PO SCH ×2 (08:01→20:12)
[2018-12-26] MEDS: MAGNESIUM OXIDE 400 MG TABLET PO SCH ×2 (08:01→17:32)
[2018-12-26] MEDS: ASCORBIC ACID 500 MG TABLET PO SCH (08:02)
[2018-12-26] MEDS: TOPIRAMATE 100 MG TABLET PO SCH ×3 (08:02→17:32)
[2018-12-26] MEDS: LevETIRAcetam 250 MG TABLET PO SCH ×2 (08:02→17:32)
[2018-12-26] MEDS: LORATADINE 10 MG TABLET PO SCH (08:03)
[2018-12-26] MEDS: CHLORHEXIDINE GLUCONATE 4% 118 ML TOPICAL LIQUID TP SCH (13:26)
[2018-12-26 14:46] VITALS: BP 116/51
[2018-12-26 17:37] VITALS: BP 136/93
[2018-12-26] MEDS: HALOPERIDOL 10 MG TABLET PO SCH (20:12)
[2018-12-27 06:25] LABS: GLUCOMETER DEV NAME(LOC) 3E.I; GLUCOSE,POINT OF CARE 85 MG/DL (70-110)
[2018-12-27] MEDS: FERROUS SULFATE 325 MG EC TABLET PO SCH ×2 (06:54→16:14)
[2018-12-27] MEDS: LEVOTHYROXINE SODIUM 125 MCG TABLET PO SCH (06:54)
[2018-12-27] MEDS ORDERED: LORazepam 2 MG/ML VIAL IM ONE (08:30)
[2018-12-27] MEDS ORDERED: DiphenhydrAMINE HCL 50 MG/ML VIAL IM ONE (08:30)
[2018-12-27] MEDS ORDERED: HALOPERIDOL LACTATE 5 MG/ML VIAL IM ONE (08:30)
[2018-12-27] MEDS ORDERED: LORazepam 2 MG/ML VIAL ONE (08:35)
[2018-12-27] MEDS ORDERED: HALOPERIDOL LACTATE 5 MG/ML VIAL ONE (08:36)
[2018-12-27] MEDS ORDERED: DiphenhydrAMINE HCL 50 MG/ML VIAL ONE (08:36)
[2018-12-27] MEDS: DOCUSATE SODIUM 100 MG CAPSULE PO SCH (09:00)
[2018-12-27] MEDS: LevETIRAcetam 250 MG TABLET PO SCH ×2 (09:00→16:14)
[2018-12-27] MEDS: DIVALPROEX SODIUM 500 MG DR TABLET PO SCH ×2 (09:00→20:01)
[2018-12-27] MEDS: LORATADINE 10 MG TABLET PO SCH (09:00)
[2018-12-27] MEDS: OXYBUTYNIN CHLORIDE 5 MG ER TABLET PO SCH (09:00)
[2018-12-27] MEDS: CHLORHEXIDINE GLUCONATE 4% 118 ML TOPICAL LIQUID TP SCH (09:00)
[2018-12-27] MEDS: QUEtiapine FUMARATE 200 MG TABLET PO SCH ×2 (09:00→20:01)
[2018-12-27] MEDS: MAGNESIUM OXIDE 400 MG TABLET PO SCH ×2 (09:00→16:14)
[2018-12-27] MEDS: OMEPRAZOLE 20 MG CAPSULE PO SCH (09:00)
[2018-12-27] MEDS: ASCORBIC ACID 500 MG TABLET PO SCH (09:00)
[2018-12-27] MEDS: ASPIRIN 81 MG EC TABLET PO SCH (09:00)
[2018-12-27] MEDS: TOPIRAMATE 100 MG TABLET PO SCH ×3 (09:00→16:14)
[2018-12-27] MEDS: MULTIVITAMINS WITH MINERALS, THERAPEUTIC TABLET PO SCH (09:00)
[2018-12-27] MEDS: FLUoxetine HCL 20 MG CAPSULE PO SCH (09:00)
[2018-12-27 09:38] VITALS: BP 145/98
[2018-12-27 16:44] LABS: GLUCOMETER DEV NAME(LOC) 3E.I; GLUCOSE,POINT OF CARE 94 MG/DL (70-110)
[2018-12-27] MEDS: HALOPERIDOL 10 MG TABLET PO SCH (20:01)
[2018-12-28] MEDS: LEVOTHYROXINE SODIUM 125 MCG TABLET PO SCH (06:41)
[2018-12-28] MEDS: FERROUS SULFATE 325 MG EC TABLET PO SCH ×2 (06:42→16:40)
[2018-12-28] MEDS: CHLORHEXIDINE GLUCONATE 4% 118 ML TOPICAL LIQUID TP SCH (09:00)
[2018-12-28] MEDS: ASPIRIN 81 MG EC TABLET PO SCH (09:29)
[2018-12-28] MEDS: DOCUSATE SODIUM 100 MG CAPSULE PO SCH (09:29)
[2018-12-28] MEDS: QUEtiapine FUMARATE 200 MG TABLET PO SCH ×2 (09:29→20:22)
[2018-12-28] MEDS: LevETIRAcetam 250 MG TABLET PO SCH ×2 (09:29→16:40)
[2018-12-28] MEDS: ASCORBIC ACID 500 MG TABLET PO SCH (09:29)
[2018-12-28] MEDS: FLUoxetine HCL 20 MG CAPSULE PO SCH (09:29)
[2018-12-28] MEDS: OMEPRAZOLE 20 MG CAPSULE PO SCH (09:29)
[2018-12-28] MEDS: DIVALPROEX SODIUM 500 MG DR TABLET PO SCH ×2 (09:29→20:22)
[2018-12-28] MEDS: LORATADINE 10 MG TABLET PO SCH (09:30)
[2018-12-28] MEDS: TOPIRAMATE 100 MG TABLET PO SCH ×3 (09:30→16:41)
[2018-12-28] MEDS: OXYBUTYNIN CHLORIDE 5 MG ER TABLET PO SCH (09:30)
[2018-12-28] MEDS: MAGNESIUM OXIDE 400 MG TABLET PO SCH ×2 (09:30→16:41)
[2018-12-28] MEDS: MULTIVITAMINS WITH MINERALS, THERAPEUTIC TABLET PO SCH (09:31)
[2018-12-28 16:34] VITALS: BP 127/89
[2018-12-28 16:34] LABS: GLUCOMETER DEV NAME(LOC) 3E.I; GLUCOSE,POINT OF CARE 91 MG/DL (70-110)
[2018-12-28] MEDS: HALOPERIDOL 10 MG TABLET PO SCH (20:22)
[2018-12-29] MEDS: LEVOTHYROXINE SODIUM 125 MCG TABLET PO SCH (06:15)
[2018-12-29] MEDS: FERROUS SULFATE 325 MG EC TABLET PO SCH ×2 (06:30→17:44)
[2018-12-29 08:00] VITALS: BP 100/68
[2018-12-29] MEDS: FLUoxetine HCL 20 MG CAPSULE PO SCH (08:02)
[2018-12-29] MEDS: LevETIRAcetam 250 MG TABLET PO SCH ×2 (08:02→17:44)
[2018-12-29] MEDS: LORATADINE 10 MG TABLET PO SCH (08:02)
[2018-12-29] MEDS: QUEtiapine FUMARATE 200 MG TABLET PO SCH ×2 (08:02→20:33)
[2018-12-29] MEDS: ASPIRIN 81 MG EC TABLET PO SCH (08:02)
[2018-12-29] MEDS: MAGNESIUM OXIDE 400 MG TABLET PO SCH ×2 (08:03→17:44)
[2018-12-29] MEDS: DIVALPROEX SODIUM 500 MG DR TABLET PO SCH ×2 (08:03→20:33)
[2018-12-29] MEDS: MULTIVITAMINS WITH MINERALS, THERAPEUTIC TABLET PO SCH (08:03)
[2018-12-29] MEDS: ASCORBIC ACID 500 MG TABLET PO SCH (08:03)
[2018-12-29] MEDS: OMEPRAZOLE 20 MG CAPSULE PO SCH (08:03)
[2018-12-29] MEDS: OXYBUTYNIN CHLORIDE 5 MG ER TABLET PO SCH (08:03)
[2018-12-29] MEDS: TOPIRAMATE 100 MG TABLET PO SCH ×3 (08:03→17:44)
[2018-12-29] MEDS: DOCUSATE SODIUM 100 MG CAPSULE PO SCH (08:03)
[2018-12-29] MEDS: CHLORHEXIDINE GLUCONATE 4% 118 ML TOPICAL LIQUID TP SCH (09:20)
[2018-12-29 16:34] LABS: GLUCOMETER DEV NAME(LOC) 3E.I; GLUCOSE,POINT OF CARE 129 MG/DL (70-110)
[2018-12-29] MEDS: HALOPERIDOL 10 MG TABLET PO SCH (20:33)
[2018-12-30 06:19] LABS: GLUCOMETER DEV NAME(LOC) 3E.I; GLUCOSE,POINT OF CARE 109 MG/DL (70-110)
[2018-12-30] MEDS: INSULIN LISPRO 100 UNITS/ML SQ PRN (06:39)
[2018-12-30] MEDS: LEVOTHYROXINE SODIUM 125 MCG TABLET PO SCH (06:51)
[2018-12-30] MEDS: FERROUS SULFATE 325 MG EC TABLET PO SCH ×2 (06:52→17:48)
[2018-12-30] MEDS: OMEPRAZOLE 20 MG CAPSULE PO SCH (10:27)
[2018-12-30] MEDS: ASPIRIN 81 MG EC TABLET PO SCH (10:27)
[2018-12-30] MEDS: FLUoxetine HCL 20 MG CAPSULE PO SCH (10:27)
[2018-12-30] MEDS: ASCORBIC ACID 500 MG TABLET PO SCH (10:27)
[2018-12-30] MEDS: HALOPERIDOL 5 MG TABLET PO PRN (10:27)
[2018-12-30] MEDS: TOPIRAMATE 100 MG TABLET PO SCH ×3 (10:28→17:48)
[2018-12-30] MEDS: LORATADINE 10 MG TABLET PO SCH (10:28)
[2018-12-30] MEDS: OXYBUTYNIN CHLORIDE 5 MG ER TABLET PO SCH (10:28)
[2018-12-30] MEDS: MAGNESIUM OXIDE 400 MG TABLET PO SCH ×2 (10:28→17:48)
[2018-12-30] MEDS: QUEtiapine FUMARATE 200 MG TABLET PO SCH ×2 (10:28→20:38)
[2018-12-30] MEDS: LevETIRAcetam 250 MG TABLET PO SCH ×2 (10:28→17:48)
[2018-12-30] MEDS: DOCUSATE SODIUM 100 MG CAPSULE PO SCH (10:28)
[2018-12-30] MEDS: DIVALPROEX SODIUM 500 MG DR TABLET PO SCH ×2 (10:28→20:38)
[2018-12-30] MEDS: MULTIVITAMINS WITH MINERALS, THERAPEUTIC TABLET PO SCH (10:28)
[2018-12-30 10:29] VITALS: BP 126/95
[2018-12-30] MEDS: CHLORHEXIDINE GLUCONATE 4% 118 ML TOPICAL LIQUID TP SCH (10:29)
[2018-12-30 16:18] LABS: GLUCOMETER DEV NAME(LOC) 3E.I; GLUCOSE,POINT OF CARE 130 MG/DL (70-110)
[2018-12-30 16:31] VITALS: BP 124/70
[2018-12-30] MEDS: HALOPERIDOL 10 MG TABLET PO SCH (20:37)
[2018-12-31] MEDS: LEVOTHYROXINE SODIUM 125 MCG TABLET PO SCH (07:00)
[2018-12-31] MEDS: FERROUS SULFATE 325 MG EC TABLET PO SCH ×2 (07:03→18:00)
[2018-12-31 08:05] VITALS: BP 143/83
[2018-12-31] MEDS: ASPIRIN 81 MG EC TABLET PO SCH (08:48)
[2018-12-31] MEDS: DIVALPROEX SODIUM 500 MG DR TABLET PO SCH ×2 (08:48→20:23)
[2018-12-31] MEDS: OMEPRAZOLE 20 MG CAPSULE PO SCH (08:48)
[2018-12-31] MEDS: ASCORBIC ACID 500 MG TABLET PO SCH (08:48)
[2018-12-31] MEDS: OXYBUTYNIN CHLORIDE 5 MG ER TABLET PO SCH (08:48)
[2018-12-31] MEDS: DOCUSATE SODIUM 100 MG CAPSULE PO SCH (08:49)
[2018-12-31] MEDS: FLUoxetine HCL 20 MG CAPSULE PO SCH (08:49)
[2018-12-31] MEDS: MULTIVITAMINS WITH MINERALS, THERAPEUTIC TABLET PO SCH (08:49)
[2018-12-31] MEDS: LORATADINE 10 MG TABLET PO SCH (08:49)
[2018-12-31] MEDS: TOPIRAMATE 100 MG TABLET PO SCH ×3 (08:49→18:00)
[2018-12-31] MEDS: QUEtiapine FUMARATE 200 MG TABLET PO SCH ×2 (08:49→20:23)
[2018-12-31] MEDS: LevETIRAcetam 250 MG TABLET PO SCH ×2 (08:49→18:00)
[2018-12-31] MEDS: MAGNESIUM OXIDE 400 MG TABLET PO SCH ×2 (08:50→18:00)
[2018-12-31] MEDS: CHLORHEXIDINE GLUCONATE 4% 118 ML TOPICAL LIQUID TP SCH (10:00)
[2018-12-31 16:13] VITALS: BP 119/78
[2018-12-31 16:49] LABS: GLUCOMETER DEV NAME(LOC) 3E.I; GLUCOSE,POINT OF CARE 86 MG/DL (70-110)
[2018-12-31] MEDS: HALOPERIDOL 10 MG TABLET PO SCH (20:23)
[2019-01-01 05:29] LABS: GLUCOMETER DEV NAME(LOC) 3E.I; GLUCOSE,POINT OF CARE 89 MG/DL (70-110)
[2019-01-01] MEDS: FERROUS SULFATE 325 MG EC TABLET PO SCH ×2 (06:36→16:55)
[2019-01-01] MEDS: LEVOTHYROXINE SODIUM 125 MCG TABLET PO SCH (06:36)
[2019-01-01 08:05] VITALS: BP 96/54
[2019-01-01] MEDS: ASCORBIC ACID 500 MG TABLET PO SCH (08:05)
[2019-01-01] MEDS: LORATADINE 10 MG TABLET PO SCH (08:05)
[2019-01-01] MEDS: TOPIRAMATE 100 MG TABLET PO SCH ×3 (08:05→16:55)
[2019-01-01] MEDS: DIVALPROEX SODIUM 500 MG DR TABLET PO SCH ×2 (08:05→20:01)
[2019-01-01] MEDS: MULTIVITAMINS WITH MINERALS, THERAPEUTIC TABLET PO SCH (08:05)
[2019-01-01] MEDS: HALOPERIDOL 5 MG TABLET PO PRN (08:05)
[2019-01-01] MEDS: DOCUSATE SODIUM 100 MG CAPSULE PO SCH (08:05)
[2019-01-01] MEDS: LevETIRAcetam 250 MG TABLET PO SCH ×2 (08:05→16:55)
[2019-01-01] MEDS: OXYBUTYNIN CHLORIDE 5 MG ER TABLET PO SCH (08:05)
[2019-01-01] MEDS: MAGNESIUM OXIDE 400 MG TABLET PO SCH ×2 (08:05→16:54)
[2019-01-01] MEDS: ASPIRIN 81 MG EC TABLET PO SCH (08:05)
[2019-01-01] MEDS: OMEPRAZOLE 20 MG CAPSULE PO SCH (08:12)
[2019-01-01] MEDS: FLUoxetine HCL 20 MG CAPSULE PO SCH (08:12)
[2019-01-01] MEDS: QUEtiapine FUMARATE 200 MG TABLET PO SCH ×2 (08:13→20:01)
[2019-01-01] MEDS: CHLORHEXIDINE GLUCONATE 4% 118 ML TOPICAL LIQUID TP SCH (11:13)
[2019-01-01 16:07] VITALS: BP 112/77
[2019-01-01 17:40] LABS: GLUCOMETER DEV NAME(LOC) 3E.I; GLUCOSE,POINT OF CARE 66 MG/DL (70-110)
[2019-01-01 18:49] LABS: GLUCOMETER DEV NAME(LOC) 3E.I; GLUCOSE,POINT OF CARE 158 MG/DL (70-110)
[2019-01-01] MEDS: HALOPERIDOL 10 MG TABLET PO SCH (20:02)
[2019-01-02 06:34] VITALS: BP 149/71
[2019-01-02] MEDS: FERROUS SULFATE 325 MG EC TABLET PO SCH ×2 (06:58→18:00)
[2019-01-02] MEDS: LEVOTHYROXINE SODIUM 125 MCG TABLET PO SCH (06:58)
[2019-01-02] MEDS: OMEPRAZOLE 20 MG CAPSULE PO SCH (08:29)
[2019-01-02] MEDS: HALOPERIDOL 5 MG TABLET PO PRN (08:29)
[2019-01-02] MEDS: LORATADINE 10 MG TABLET PO SCH (08:29)
[2019-01-02] MEDS: FLUoxetine HCL 20 MG CAPSULE PO SCH (08:29)
[2019-01-02] MEDS: DIVALPROEX SODIUM 500 MG DR TABLET PO SCH ×2 (08:30→21:06)
[2019-01-02] MEDS: TOPIRAMATE 100 MG TABLET PO SCH ×3 (08:30→17:59)
[2019-01-02] MEDS: QUEtiapine FUMARATE 200 MG TABLET PO SCH ×2 (08:30→21:06)
[2019-01-02] MEDS: OXYBUTYNIN CHLORIDE 5 MG ER TABLET PO SCH (08:30)
[2019-01-02] MEDS: MULTIVITAMINS WITH MINERALS, THERAPEUTIC TABLET PO SCH (08:31)
[2019-01-02] MEDS: ASCORBIC ACID 500 MG TABLET PO SCH (08:31)
[2019-01-02] MEDS: MAGNESIUM OXIDE 400 MG TABLET PO SCH ×2 (08:31→17:59)
[2019-01-02] MEDS: DOCUSATE SODIUM 100 MG CAPSULE PO SCH (08:31)
[2019-01-02] MEDS: LevETIRAcetam 250 MG TABLET PO SCH ×2 (08:31→17:59)
[2019-01-02] MEDS: ASPIRIN 81 MG EC TABLET PO SCH (08:32)
[2019-01-02] MEDS: CHLORHEXIDINE GLUCONATE 4% 118 ML TOPICAL LIQUID TP SCH (08:33)
[2019-01-02 10:45] VITALS: BP 106/67
[2019-01-02 17:45] LABS: GLUCOMETER DEV NAME(LOC) 3E.I; GLUCOSE,POINT OF CARE 106 MG/DL (70-110)
[2019-01-02 18:47] VITALS: BP 109/69
[2019-01-02] MEDS: HALOPERIDOL 10 MG TABLET PO SCH (21:06)
[2019-01-03 05:40] LABS: GLUCOMETER DEV NAME(LOC) 3E.I; GLUCOSE,POINT OF CARE 117 MG/DL (70-110)
[2019-01-03 05:47] VITALS: BP 120/73
[2019-01-03] MEDS: LEVOTHYROXINE SODIUM 125 MCG TABLET PO SCH (06:29)
[2019-01-03] MEDS: FERROUS SULFATE 325 MG EC TABLET PO SCH ×2 (06:29→18:00)
[2019-01-03] MEDS: LORATADINE 10 MG TABLET PO SCH (08:07)
[2019-01-03] MEDS: OMEPRAZOLE 20 MG CAPSULE PO SCH (08:07)
[2019-01-03] MEDS: DOCUSATE SODIUM 100 MG CAPSULE PO SCH (08:07)
[2019-01-03] MEDS: ASCORBIC ACID 500 MG TABLET PO SCH (08:07)
[2019-01-03] MEDS: FLUoxetine HCL 20 MG CAPSULE PO SCH (08:07)
[2019-01-03] MEDS: MULTIVITAMINS WITH MINERALS, THERAPEUTIC TABLET PO SCH (08:07)
[2019-01-03] MEDS: MAGNESIUM OXIDE 400 MG TABLET PO SCH ×2 (08:07→18:00)
[2019-01-03] MEDS: OXYBUTYNIN CHLORIDE 5 MG ER TABLET PO SCH (08:07)
[2019-01-03] MEDS: LevETIRAcetam 250 MG TABLET PO SCH ×2 (08:07→18:00)
[2019-01-03] MEDS: DIVALPROEX SODIUM 500 MG DR TABLET PO SCH ×2 (08:08→20:13)
[2019-01-03] MEDS: ASPIRIN 81 MG EC TABLET PO SCH (08:08)
[2019-01-03] MEDS: QUEtiapine FUMARATE 200 MG TABLET PO SCH ×2 (08:08→20:12)
[2019-01-03] MEDS: TOPIRAMATE 100 MG TABLET PO SCH ×3 (08:08→18:00)
[2019-01-03] MEDS: HALOPERIDOL 5 MG TABLET PO PRN (08:09)
[2019-01-03] MEDS: CHLORHEXIDINE GLUCONATE 4% 118 ML TOPICAL LIQUID TP SCH (09:00)
[2019-01-03 16:01] VITALS: BP 114/78
[2019-01-03 17:15] LABS: GLUCOMETER DEV NAME(LOC) 3E.I; GLUCOSE,POINT OF CARE 90 MG/DL (70-110)
[2019-01-03] MEDS: HALOPERIDOL 10 MG TABLET PO SCH (20:12)
[2019-01-04 05:44] LABS: GLUCOMETER DEV NAME(LOC) 3E.I; GLUCOSE,POINT OF CARE 67 MG/DL (70-110)
[2019-01-04 06:25] LABS: GLUCOMETER DEV NAME(LOC) 3E.I; GLUCOSE,POINT OF CARE 91 MG/DL (70-110)
[2019-01-04] MEDS: FERROUS SULFATE 325 MG EC TABLET PO SCH ×2 (06:47→16:17)
[2019-01-04] MEDS: LEVOTHYROXINE SODIUM 125 MCG TABLET PO SCH (06:47)
[2019-01-04] MEDS: INSULIN LISPRO 100 UNITS/ML SQ PRN (06:48)
[2019-01-04 07:16] VITALS: BP 125/81
[2019-01-04 09:23] VITALS: BP 126/73
[2019-01-04] MEDS: OXYBUTYNIN CHLORIDE 5 MG ER TABLET PO SCH (10:23)
[2019-01-04] MEDS: FLUoxetine HCL 20 MG CAPSULE PO SCH (10:23)
[2019-01-04] MEDS: OMEPRAZOLE 20 MG CAPSULE PO SCH (10:23)
[2019-01-04] MEDS: DIVALPROEX SODIUM 500 MG DR TABLET PO SCH ×2 (10:24→20:39)
[2019-01-04] MEDS: MAGNESIUM OXIDE 400 MG TABLET PO SCH ×2 (10:24→16:17)
[2019-01-04] MEDS: MULTIVITAMINS WITH MINERALS, THERAPEUTIC TABLET PO SCH (10:24)
[2019-01-04] MEDS: ASCORBIC ACID 500 MG TABLET PO SCH (10:24)
[2019-01-04] MEDS: LORATADINE 10 MG TABLET PO SCH (10:24)
[2019-01-04] MEDS: ASPIRIN 81 MG EC TABLET PO SCH (10:24)
[2019-01-04] MEDS: DOCUSATE SODIUM 100 MG CAPSULE PO SCH (10:24)
[2019-01-04] MEDS: LevETIRAcetam 250 MG TABLET PO SCH ×2 (10:24→16:17)
[2019-01-04] MEDS: QUEtiapine FUMARATE 200 MG TABLET PO SCH ×2 (10:24→20:39)
[2019-01-04] MEDS: TOPIRAMATE 100 MG TABLET PO SCH ×3 (10:25→16:17)
[2019-01-04] MEDS: CHLORHEXIDINE GLUCONATE 4% 118 ML TOPICAL LIQUID TP SCH (10:33)
[2019-01-04 16:34] LABS: GLUCOMETER DEV NAME(LOC) 3E.I; GLUCOSE,POINT OF CARE 133 MG/DL (70-110)
[2019-01-04] MEDS: HALOPERIDOL 10 MG TABLET PO SCH (20:40)
[2019-01-05 05:25] LABS: GLUCOMETER DEV NAME(LOC) 3E.I; GLUCOSE,POINT OF CARE 73 MG/DL (70-110)
[2019-01-05] MEDS: FERROUS SULFATE 325 MG EC TABLET PO SCH ×2 (06:34→16:31)
[2019-01-05] MEDS: LEVOTHYROXINE SODIUM 125 MCG TABLET PO SCH (06:34)
[2019-01-05] MEDS: MULTIVITAMINS WITH MINERALS, THERAPEUTIC TABLET PO SCH (07:59)
[2019-01-05] MEDS: LORATADINE 10 MG TABLET PO SCH (07:59)
[2019-01-05] MEDS: ASCORBIC ACID 500 MG TABLET PO SCH (07:59)
[2019-01-05] MEDS: ASPIRIN 81 MG EC TABLET PO SCH (07:59)
[2019-01-05] MEDS: TOPIRAMATE 100 MG TABLET PO SCH ×3 (07:59→16:31)
[2019-01-05] MEDS: DIVALPROEX SODIUM 500 MG DR TABLET PO SCH ×2 (07:59→20:18)
[2019-01-05] MEDS: OXYBUTYNIN CHLORIDE 5 MG ER TABLET PO SCH (07:59)
[2019-01-05] MEDS: DOCUSATE SODIUM 100 MG CAPSULE PO SCH (07:59)
[2019-01-05] MEDS: QUEtiapine FUMARATE 200 MG TABLET PO SCH ×2 (08:00→20:18)
[2019-01-05] MEDS: MAGNESIUM OXIDE 400 MG TABLET PO SCH ×2 (08:00→16:31)
[2019-01-05] MEDS: OMEPRAZOLE 20 MG CAPSULE PO SCH (08:00)
[2019-01-05] MEDS: HALOPERIDOL 5 MG TABLET PO PRN (08:00)
[2019-01-05] MEDS: FLUoxetine HCL 20 MG CAPSULE PO SCH (08:00)
[2019-01-05] MEDS: LevETIRAcetam 250 MG TABLET PO SCH ×2 (08:00→16:31)
[2019-01-05] MEDS: CHLORHEXIDINE GLUCONATE 4% 118 ML TOPICAL LIQUID TP SCH (08:08)
[2019-01-05 09:26] VITALS: BP 112/68
[2019-01-05 09:56] LABS: APPEARANCE,URINE CLEAR (CLEAR); BILIRUBIN,URINE NEGATIVE (NEGATIVE); GLUCOSE, URINE (UA) NEGATIVE (NEGATIVE); KETONES,URINE NEGATIVE (NEGATIVE); LEUKOCYTE ESTERASE ,URINE TRACE (NEGATIVE); NITRATE,URINE NEGATIVE (NEGATIVE); OCCULT BLOOD,URINE NEGATIVE (NEGATIVE); PROTEIN,URINE NEGATIVE (NEGATIVE)
[2019-01-05 10:05] LABS: BACTERIA,URINE None Seen /HPF (None Seen); RBC,URINE None Seen /HPF (0-2); WBC,URINE 0-2 /HPF (0-5)
[2019-01-05 16:08] VITALS: BP 116/78
[2019-01-05] MEDS: HALOPERIDOL 10 MG TABLET PO SCH (20:17)
[2019-01-05 20:44] LABS: GLUCOMETER DEV NAME(LOC) 3E.I; GLUCOSE,POINT OF CARE 97 MG/DL (70-110)
[2019-01-06 05:55] LABS: GLUCOMETER DEV NAME(LOC) 3E.I; GLUCOSE,POINT OF CARE 119 MG/DL (70-110)
[2019-01-06] MEDS: FERROUS SULFATE 325 MG EC TABLET PO SCH ×2 (06:32→18:00)
[2019-01-06] MEDS: LEVOTHYROXINE SODIUM 125 MCG TABLET PO SCH (06:32)
[2019-01-06 08:00] VITALS: BP 142/113
[2019-01-06] MEDS: OMEPRAZOLE 20 MG CAPSULE PO SCH (08:34)
[2019-01-06] MEDS: MULTIVITAMINS WITH MINERALS, THERAPEUTIC TABLET PO SCH (08:34)
[2019-01-06] MEDS: LORATADINE 10 MG TABLET PO SCH (08:35)
[2019-01-06] MEDS: DIVALPROEX SODIUM 500 MG DR TABLET PO SCH ×2 (08:35→20:05)
[2019-01-06] MEDS: ASPIRIN 81 MG EC TABLET PO SCH (08:35)
[2019-01-06] MEDS: FLUoxetine HCL 20 MG CAPSULE PO SCH (08:35)
[2019-01-06] MEDS: MAGNESIUM OXIDE 400 MG TABLET PO SCH ×2 (08:35→18:00)
[2019-01-06] MEDS: DOCUSATE SODIUM 100 MG CAPSULE PO SCH (08:35)
[2019-01-06] MEDS: QUEtiapine FUMARATE 200 MG TABLET PO SCH ×2 (08:35→20:05)
[2019-01-06] MEDS: LevETIRAcetam 250 MG TABLET PO SCH ×2 (08:36→18:00)
[2019-01-06] MEDS: TOPIRAMATE 100 MG TABLET PO SCH ×3 (08:36→18:00)
[2019-01-06] MEDS: ASCORBIC ACID 500 MG TABLET PO SCH (08:36)
[2019-01-06] MEDS: OXYBUTYNIN CHLORIDE 5 MG ER TABLET PO SCH (08:36)
[2019-01-06] MEDS: CHLORHEXIDINE GLUCONATE 4% 118 ML TOPICAL LIQUID TP SCH (08:36)
[2019-01-06] MEDS: HALOPERIDOL 5 MG TABLET PO PRN (08:38)
[2019-01-06 13:29] VITALS: BP 94/55
[2019-01-06 17:09] LABS: GLUCOMETER DEV NAME(LOC) 3E.I; GLUCOSE,POINT OF CARE 130 MG/DL (70-110)
[2019-01-06] MEDS: HALOPERIDOL 10 MG TABLET PO SCH (20:05)
[2019-01-07 06:15] LABS: GLUCOMETER DEV NAME(LOC) 3E.I; GLUCOSE,POINT OF CARE 90 MG/DL (70-110)
[2019-01-07] MEDS: INSULIN LISPRO 100 UNITS/ML SQ PRN (06:46)
[2019-01-07] MEDS: LEVOTHYROXINE SODIUM 125 MCG TABLET PO SCH (06:55)
[2019-01-07] MEDS: FERROUS SULFATE 325 MG EC TABLET PO SCH ×2 (06:55→17:50)
[2019-01-07] MEDS: HALOPERIDOL 5 MG TABLET PO PRN (07:30)
[2019-01-07 08:00] VITALS: BP 126/77
[2019-01-07] MEDS: FLUoxetine HCL 20 MG CAPSULE PO SCH (09:04)
[2019-01-07] MEDS: LORATADINE 10 MG TABLET PO SCH (09:04)
[2019-01-07] MEDS: OMEPRAZOLE 20 MG CAPSULE PO SCH (09:05)
[2019-01-07] MEDS: LevETIRAcetam 250 MG TABLET PO SCH ×2 (09:05→17:50)
[2019-01-07] MEDS: ASPIRIN 81 MG EC TABLET PO SCH (09:05)
[2019-01-07] MEDS: DIVALPROEX SODIUM 500 MG DR TABLET PO SCH ×2 (09:05→20:05)
[2019-01-07] MEDS: MULTIVITAMINS WITH MINERALS, THERAPEUTIC TABLET PO SCH (09:06)
[2019-01-07] MEDS: OXYBUTYNIN CHLORIDE 5 MG ER TABLET PO SCH (09:06)
[2019-01-07] MEDS: ASCORBIC ACID 500 MG TABLET PO SCH (09:06)
[2019-01-07] MEDS: QUEtiapine FUMARATE 200 MG TABLET PO SCH ×2 (09:06→20:06)
[2019-01-07] MEDS: MAGNESIUM OXIDE 400 MG TABLET PO SCH ×2 (09:06→17:50)
[2019-01-07] MEDS: TOPIRAMATE 100 MG TABLET PO SCH ×3 (09:06→17:50)
[2019-01-07] MEDS: DOCUSATE SODIUM 100 MG CAPSULE PO SCH (09:06)
[2019-01-07] MEDS: CHLORHEXIDINE GLUCONATE 4% 118 ML TOPICAL LIQUID TP SCH (09:27)
[2019-01-07 16:06] VITALS: BP 119/78
[2019-01-07 16:55] LABS: GLUCOMETER DEV NAME(LOC) 3E.I; GLUCOSE,POINT OF CARE 101 MG/DL (70-110)
[2019-01-07] MEDS: HALOPERIDOL 10 MG TABLET PO SCH (20:06)
[2019-01-08 05:40] LABS: GLUCOMETER DEV NAME(LOC) 3E.I; GLUCOSE,POINT OF CARE 87 MG/DL (70-110)
[2019-01-08] MEDS: LEVOTHYROXINE SODIUM 125 MCG TABLET PO SCH (06:49)
[2019-01-08] MEDS: FERROUS SULFATE 325 MG EC TABLET PO SCH ×2 (06:49→16:41)
[2019-01-08] MEDS: QUEtiapine FUMARATE 200 MG TABLET PO SCH ×2 (09:02→20:11)
[2019-01-08] MEDS: OMEPRAZOLE 20 MG CAPSULE PO SCH (09:02)
[2019-01-08] MEDS: MAGNESIUM OXIDE 400 MG TABLET PO SCH ×2 (09:03→16:18)
[2019-01-08] MEDS: FLUoxetine HCL 20 MG CAPSULE PO SCH (09:03)
[2019-01-08] MEDS: ASPIRIN 81 MG EC TABLET PO SCH (09:03)
[2019-01-08] MEDS: DOCUSATE SODIUM 100 MG CAPSULE PO SCH (09:03)
[2019-01-08] MEDS: DIVALPROEX SODIUM 500 MG DR TABLET PO SCH ×2 (09:03→20:11)
[2019-01-08] MEDS: MULTIVITAMINS WITH MINERALS, THERAPEUTIC TABLET PO SCH (09:03)
[2019-01-08] MEDS: LORATADINE 10 MG TABLET PO SCH (09:03)
[2019-01-08] MEDS: ASCORBIC ACID 500 MG TABLET PO SCH (09:04)
[2019-01-08] MEDS: OXYBUTYNIN CHLORIDE 5 MG ER TABLET PO SCH (09:04)
[2019-01-08] MEDS: HALOPERIDOL 5 MG TABLET PO PRN (09:04)
[2019-01-08] MEDS: LevETIRAcetam 250 MG TABLET PO SCH ×2 (09:04→16:18)
[2019-01-08] MEDS: TOPIRAMATE 100 MG TABLET PO SCH ×3 (09:04→16:18)
[2019-01-08] MEDS: CHLORHEXIDINE GLUCONATE 4% 118 ML TOPICAL LIQUID TP SCH (09:11)
[2019-01-08 16:19] LABS: GLUCOMETER DEV NAME(LOC) 3E.I; GLUCOSE,POINT OF CARE 112 MG/DL (70-110)
[2019-01-08 16:30] VITALS: BP 129/54
[2019-01-08] MEDS: HALOPERIDOL 10 MG TABLET PO SCH (20:11)
[2019-01-08 21:17] VITALS: BP 129/54
[2019-01-09 05:35] LABS: GLUCOMETER DEV NAME(LOC) 3E.I; GLUCOSE,POINT OF CARE 118 MG/DL (70-110)
[2019-01-09] MEDS: INSULIN LISPRO 100 UNITS/ML SQ PRN (06:41)
[2019-01-09] MEDS: FERROUS SULFATE 325 MG EC TABLET PO SCH ×2 (06:41→16:44)
[2019-01-09] MEDS: LEVOTHYROXINE SODIUM 125 MCG TABLET PO SCH (06:41)
[2019-01-09] MEDS: HALOPERIDOL 10 MG TABLET PO SCH (07:55)
[2019-01-09 08:00] VITALS: BP 112/59
[2019-01-09] MEDS: OMEPRAZOLE 20 MG CAPSULE PO SCH (08:00)
[2019-01-09] MEDS: FLUoxetine HCL 20 MG CAPSULE PO SCH (08:00)
[2019-01-09] MEDS: ASCORBIC ACID 500 MG TABLET PO SCH (08:00)
[2019-01-09] MEDS: TOPIRAMATE 100 MG TABLET PO SCH ×3 (08:00→16:44)
[2019-01-09] MEDS: DOCUSATE SODIUM 100 MG CAPSULE PO SCH (08:00)
[2019-01-09] MEDS: MAGNESIUM OXIDE 400 MG TABLET PO SCH (08:00)
[2019-01-09] MEDS: DIVALPROEX SODIUM 500 MG DR TABLET PO SCH ×2 (08:00→20:06)
[2019-01-09] MEDS: CHLORHEXIDINE GLUCONATE 4% 118 ML TOPICAL LIQUID TP SCH (08:00)
[2019-01-09] MEDS: LORATADINE 10 MG TABLET PO SCH (08:00)
[2019-01-09] MEDS: MULTIVITAMINS WITH MINERALS, THERAPEUTIC TABLET PO SCH (08:00)
[2019-01-09] MEDS: OXYBUTYNIN CHLORIDE 5 MG ER TABLET PO SCH (08:00)
[2019-01-09] MEDS: ASPIRIN 81 MG EC TABLET PO SCH (08:00)
[2019-01-09] MEDS: LevETIRAcetam 250 MG TABLET PO SCH ×2 (08:00→16:44)
[2019-01-09] MEDS: QUEtiapine FUMARATE 200 MG TABLET PO SCH ×2 (08:00→20:06)
[2019-01-09 11:22] LABS: BASOPHILS % (AUTO) 0.3 % (0.0-2.0); EOSINOPHILS % (AUTO) 0.4 % (1.0-6.0); HEMATOCRIT 34.3 % (36-46); HEMOGLOBIN 11.3 g/dL (12.0-16.0); LYMPHOCYTES # (AUTO) 2.5 K/uL (1.0-4.8); LYMPHOCYTES % (AUTO) 38.1 % (22.0-44.0); MEAN CORPUSCULAR HEMOGLOBIN 34.1 pg (26.0-34.0); MEAN CORPUSCULAR HGB CONC 32.9 G/dL (31.0-37.0); MEAN CORPUSCULAR VOLUME 104 fL (80-100); MONOCYTES # (AUTO) 0.7 K/uL (0.1-1.0); NEUTROPHILS # (AUTO) 3.3 K/uL (1.8-7.7); NEUTROPHILS % (AUTO) 50.2 % (40.0-70.0); PLATELET COUNT (AUTO) 162 K/uL (150-450); RED BLOOD CELL COUNT(AUTO) 3.31 MIL/uL (4.00-5.20); RED CELL DISTRIBUTION WIDTH 13.5 % (11.5-14.5)
[2019-01-09 11:44] LABS: ANION GAP 5 mmol/L (8-16); CALCIUM, TOTAL 9.1 mg/dL (8.8-10.5); CARBON DIOXIDE 26 mmol/L (22-29); CHLORIDE 107 mmol/L (98-107); CREATININE 0.65 mg/dL (0.60-1.30); GLOMERULAR FILTR. RATE CALC > 60 mL/min (>60); GLUCOSE,RANDOM 130 mg/dL (70-110); POTASSIUM 4.2 mmol/L (3.5-5.1); SODIUM SERUM 138 mmol/L (136-145); UREA NITROGEN, BLOOD 24 mg/dL (7-18)
[2019-01-09 11:53] LABS: THYROID STIMULATING HORMONE 3.87 uIU/mL (0.36-3.74)
[2019-01-09 16:20] VITALS: BP 133/55
[2019-01-09 16:30] LABS: GLUCOMETER DEV NAME(LOC) 3E.I; GLUCOSE,POINT OF CARE 134 MG/DL (70-110)
[2019-01-10] MEDS: HALOPERIDOL 5 MG TABLET PO PRN ×2 (00:25→08:20)
[2019-01-10 06:24] LABS: GLUCOMETER DEV NAME(LOC) 3E.I; GLUCOSE,POINT OF CARE 156 MG/DL (70-110)
[2019-01-10] MEDS: LEVOTHYROXINE SODIUM 125 MCG TABLET PO SCH (06:54)
[2019-01-10] MEDS: FERROUS SULFATE 325 MG EC TABLET PO SCH ×2 (06:54→17:10)
[2019-01-10] MEDS: INSULIN LISPRO 100 UNITS/ML SQ PRN (06:54)
[2019-01-10] MEDS: QUEtiapine FUMARATE 200 MG TABLET PO SCH ×2 (08:19→20:20)
[2019-01-10] MEDS: MULTIVITAMINS WITH MINERALS, THERAPEUTIC TABLET PO SCH (08:19)
[2019-01-10] MEDS: LevETIRAcetam 250 MG TABLET PO SCH ×2 (08:19→17:10)
[2019-01-10] MEDS: FLUoxetine HCL 20 MG CAPSULE PO SCH (08:19)
[2019-01-10] MEDS: TOPIRAMATE 100 MG TABLET PO SCH ×3 (08:19→17:10)
[2019-01-10] MEDS: ASCORBIC ACID 500 MG TABLET PO SCH (08:19)
[2019-01-10] MEDS: LORATADINE 10 MG TABLET PO SCH (08:20)
[2019-01-10] MEDS: DOCUSATE SODIUM 100 MG CAPSULE PO SCH (08:20)
[2019-01-10] MEDS: DIVALPROEX SODIUM 500 MG DR TABLET PO SCH ×2 (08:20→20:21)
[2019-01-10] MEDS: ASPIRIN 81 MG EC TABLET PO SCH (08:20)
[2019-01-10] MEDS: MAGNESIUM OXIDE 400 MG TABLET PO SCH (08:20)
[2019-01-10] MEDS: OXYBUTYNIN CHLORIDE 5 MG ER TABLET PO SCH (08:20)
[2019-01-10] MEDS: OMEPRAZOLE 20 MG CAPSULE PO SCH (08:20)
[2019-01-10 09:01] VITALS: BP 132/86
[2019-01-10] MEDS: CHLORHEXIDINE GLUCONATE 4% 118 ML TOPICAL LIQUID TP SCH (09:39)
[2019-01-10 16:07] VITALS: BP 111/74
[2019-01-10 16:34] LABS: GLUCOMETER DEV NAME(LOC) 3E.I; GLUCOSE,POINT OF CARE 90 MG/DL (70-110)
[2019-01-10] MEDS: HALOPERIDOL 10 MG TABLET PO SCH (20:21)
[2019-01-11] MEDS: LEVOTHYROXINE SODIUM 125 MCG TABLET PO SCH (06:26)
[2019-01-11] MEDS: FERROUS SULFATE 325 MG EC TABLET PO SCH ×2 (06:30→17:09)
[2019-01-11] MEDS: LORATADINE 10 MG TABLET PO SCH (08:29)
[2019-01-11] MEDS: TOPIRAMATE 100 MG TABLET PO SCH ×3 (08:30→17:09)
[2019-01-11] MEDS: MULTIVITAMINS WITH MINERALS, THERAPEUTIC TABLET PO SCH (08:30)
[2019-01-11] MEDS: OXYBUTYNIN CHLORIDE 5 MG ER TABLET PO SCH (08:30)
[2019-01-11] MEDS: ASPIRIN 81 MG EC TABLET PO SCH (08:30)
[2019-01-11] MEDS: OMEPRAZOLE 20 MG CAPSULE PO SCH (08:30)
[2019-01-11] MEDS: CHLORHEXIDINE GLUCONATE 4% 118 ML TOPICAL LIQUID TP SCH (08:30)
[2019-01-11] MEDS: FLUoxetine HCL 20 MG CAPSULE PO SCH (08:30)
[2019-01-11] MEDS: HALOPERIDOL 5 MG TABLET PO PRN (08:30)
[2019-01-11] MEDS: DIVALPROEX SODIUM 500 MG DR TABLET PO SCH ×2 (08:30→20:42)
[2019-01-11] MEDS: MAGNESIUM OXIDE 400 MG TABLET PO SCH (08:30)
[2019-01-11] MEDS: LevETIRAcetam 250 MG TABLET PO SCH ×2 (08:30→17:09)
[2019-01-11] MEDS: ASCORBIC ACID 500 MG TABLET PO SCH (08:30)
[2019-01-11] MEDS: QUEtiapine FUMARATE 200 MG TABLET PO SCH ×2 (08:30→20:42)
[2019-01-11] MEDS: DOCUSATE SODIUM 100 MG CAPSULE PO SCH (08:30)
[2019-01-11 17:14] LABS: GLUCOMETER DEV NAME(LOC) 3EX.; GLUCOSE,POINT OF CARE 122 MG/DL (70-110)
[2019-01-11 17:25] VITALS: BP 98/66
[2019-01-11] MEDS: HALOPERIDOL 10 MG TABLET PO SCH (20:42)
[2019-01-12 05:35] LABS: GLUCOMETER DEV NAME(LOC) 3E.I; GLUCOSE,POINT OF CARE 120 MG/DL (70-110)
[2019-01-12] MEDS: FERROUS SULFATE 325 MG EC TABLET PO SCH ×2 (06:32→17:57)
[2019-01-12] MEDS: LEVOTHYROXINE SODIUM 125 MCG TABLET PO SCH (06:32)
[2019-01-12] MEDS: LevETIRAcetam 250 MG TABLET PO SCH ×2 (08:39→17:57)
[2019-01-12] MEDS: ASPIRIN 81 MG EC TABLET PO SCH (08:39)
[2019-01-12] MEDS: DIVALPROEX SODIUM 500 MG DR TABLET PO SCH ×2 (08:39→21:01)
[2019-01-12] MEDS: DOCUSATE SODIUM 100 MG CAPSULE PO SCH (08:39)
[2019-01-12] MEDS: ASCORBIC ACID 500 MG TABLET PO SCH (08:39)
[2019-01-12] MEDS: OXYBUTYNIN CHLORIDE 5 MG ER TABLET PO SCH (08:39)
[2019-01-12] MEDS: TOPIRAMATE 100 MG TABLET PO SCH ×3 (08:39→17:57)
[2019-01-12] MEDS: FLUoxetine HCL 20 MG CAPSULE PO SCH (08:39)
[2019-01-12] MEDS: LORATADINE 10 MG TABLET PO SCH (08:40)
[2019-01-12] MEDS: QUEtiapine FUMARATE 200 MG TABLET PO SCH ×2 (09:18→21:02)
[2019-01-12] MEDS: OMEPRAZOLE 20 MG CAPSULE PO SCH (09:18)
[2019-01-12] MEDS: MAGNESIUM OXIDE 400 MG TABLET PO SCH (09:18)
[2019-01-12] MEDS: CHLORHEXIDINE GLUCONATE 4% 118 ML TOPICAL LIQUID TP SCH (09:19)
[2019-01-12] MEDS: MULTIVITAMINS WITH MINERALS, THERAPEUTIC TABLET PO SCH (09:19)
[2019-01-12 11:15] LABS: GLUCOMETER DEV NAME(LOC) 3E.I; GLUCOSE,POINT OF CARE 90 MG/DL (70-110)
[2019-01-12 16:04] LABS: GLUCOMETER DEV NAME(LOC) 3E.I; GLUCOSE,POINT OF CARE 126 MG/DL (70-110)
[2019-01-12 20:03] VITALS: BP 115/75
[2019-01-12] MEDS: HALOPERIDOL 10 MG TABLET PO SCH (21:01)
[2019-01-13 06:29] LABS: GLUCOMETER DEV NAME(LOC) 3E.I; GLUCOSE,POINT OF CARE 92 MG/DL (70-110)
[2019-01-13] MEDS: INSULIN LISPRO 100 UNITS/ML SQ PRN ×2 (06:41→17:15)
[2019-01-13] MEDS: LEVOTHYROXINE SODIUM 125 MCG TABLET PO SCH (06:44)
[2019-01-13] MEDS: FERROUS SULFATE 325 MG EC TABLET PO SCH ×2 (06:44→17:48)
[2019-01-13 08:00] VITALS: BP 102/68
[2019-01-13] MEDS: LORATADINE 10 MG TABLET PO SCH (09:45)
[2019-01-13] MEDS: OXYBUTYNIN CHLORIDE 5 MG ER TABLET PO SCH (09:45)
[2019-01-13] MEDS: HALOPERIDOL 5 MG TABLET PO PRN (09:45)
[2019-01-13] MEDS: ASCORBIC ACID 500 MG TABLET PO SCH (09:45)
[2019-01-13] MEDS: ASPIRIN 81 MG EC TABLET PO SCH (09:45)
[2019-01-13] MEDS: OMEPRAZOLE 20 MG CAPSULE PO SCH (09:45)
[2019-01-13] MEDS: FLUoxetine HCL 20 MG CAPSULE PO SCH (09:45)
[2019-01-13] MEDS: MULTIVITAMINS WITH MINERALS, THERAPEUTIC TABLET PO SCH (09:45)
[2019-01-13] MEDS: MAGNESIUM OXIDE 400 MG TABLET PO SCH (09:45)
[2019-01-13] MEDS: DIVALPROEX SODIUM 500 MG DR TABLET PO SCH ×2 (09:45→20:03)
[2019-01-13] MEDS: LevETIRAcetam 250 MG TABLET PO SCH ×2 (09:45→17:48)
[2019-01-13] MEDS: DOCUSATE SODIUM 100 MG CAPSULE PO SCH (09:46)
[2019-01-13] MEDS: TOPIRAMATE 100 MG TABLET PO SCH ×3 (09:46→17:48)
[2019-01-13] MEDS: QUEtiapine FUMARATE 200 MG TABLET PO SCH ×2 (09:46→20:03)
[2019-01-13] MEDS: CHLORHEXIDINE GLUCONATE 4% 118 ML TOPICAL LIQUID TP SCH (12:50)
[2019-01-13 16:15] LABS: GLUCOMETER DEV NAME(LOC) 3E.I; GLUCOSE,POINT OF CARE 151 MG/DL (70-110)
[2019-01-13] MEDS: HALOPERIDOL 10 MG TABLET PO SCH (20:03)
[2019-01-14] MEDS: LEVOTHYROXINE SODIUM 125 MCG TABLET PO SCH (07:00)
[2019-01-14] MEDS: FERROUS SULFATE 325 MG EC TABLET PO SCH ×2 (07:12→17:02)
[2019-01-14 08:01] VITALS: BP 105/66
[2019-01-14] MEDS: HALOPERIDOL 5 MG TABLET PO PRN ×2 (08:04→12:28)
[2019-01-14] MEDS: FLUoxetine HCL 20 MG CAPSULE PO SCH (08:05)
[2019-01-14] MEDS: OMEPRAZOLE 20 MG CAPSULE PO SCH (08:05)
[2019-01-14] MEDS: ASCORBIC ACID 500 MG TABLET PO SCH (08:05)
[2019-01-14] MEDS: LevETIRAcetam 250 MG TABLET PO SCH ×2 (08:05→16:01)
[2019-01-14] MEDS: QUEtiapine FUMARATE 200 MG TABLET PO SCH ×2 (08:05→20:32)
[2019-01-14] MEDS: TOPIRAMATE 100 MG TABLET PO SCH ×3 (08:05→16:01)
[2019-01-14] MEDS: DIVALPROEX SODIUM 500 MG DR TABLET PO SCH ×2 (08:05→20:27)
[2019-01-14] MEDS: MULTIVITAMINS WITH MINERALS, THERAPEUTIC TABLET PO SCH (08:06)
[2019-01-14] MEDS: DOCUSATE SODIUM 100 MG CAPSULE PO SCH (08:06)
[2019-01-14] MEDS: LORATADINE 10 MG TABLET PO SCH (08:07)
[2019-01-14] MEDS: ASPIRIN 81 MG EC TABLET PO SCH (08:07)
[2019-01-14] MEDS: MAGNESIUM OXIDE 400 MG TABLET PO SCH ×2 (08:07→16:01)
[2019-01-14] MEDS: OXYBUTYNIN CHLORIDE 5 MG ER TABLET PO SCH (08:07)
[2019-01-14] MEDS: CHLORHEXIDINE GLUCONATE 4% 118 ML TOPICAL LIQUID TP SCH (09:49)
[2019-01-14 16:03] VITALS: BP 114/77
[2019-01-14 17:29] LABS: GLUCOMETER DEV NAME(LOC) 3E.I; GLUCOSE,POINT OF CARE 129 MG/DL (70-110)
[2019-01-14] MEDS: HALOPERIDOL 10 MG TABLET PO SCH (20:27)
[2019-01-15] MEDS: INSULIN LISPRO 100 UNITS/ML SQ PRN (06:52)
[2019-01-15] MEDS: LEVOTHYROXINE SODIUM 125 MCG TABLET PO SCH (06:53)
[2019-01-15] MEDS: FERROUS SULFATE 325 MG EC TABLET PO SCH ×2 (06:53→16:40)
[2019-01-15 06:54] LABS: GLUCOMETER DEV NAME(LOC) 3E.I; GLUCOSE,POINT OF CARE 147 MG/DL (70-110)
[2019-01-15] MEDS: HALOPERIDOL 5 MG TABLET PO PRN ×2 (09:00→12:32)
[2019-01-15] MEDS: MULTIVITAMINS WITH MINERALS, THERAPEUTIC TABLET PO SCH (09:01)
[2019-01-15] MEDS: OMEPRAZOLE 20 MG CAPSULE PO SCH (09:01)
[2019-01-15] MEDS: FLUoxetine HCL 20 MG CAPSULE PO SCH (09:01)
[2019-01-15] MEDS: DIVALPROEX SODIUM 500 MG DR TABLET PO SCH ×2 (09:01→20:07)
[2019-01-15] MEDS: LORATADINE 10 MG TABLET PO SCH (09:01)
[2019-01-15] MEDS: ASCORBIC ACID 500 MG TABLET PO SCH (09:01)
[2019-01-15] MEDS: ASPIRIN 81 MG EC TABLET PO SCH (09:01)
[2019-01-15] MEDS: TOPIRAMATE 100 MG TABLET PO SCH ×3 (09:01→16:40)
[2019-01-15] MEDS: OXYBUTYNIN CHLORIDE 5 MG ER TABLET PO SCH (09:02)
[2019-01-15] MEDS: QUEtiapine FUMARATE 200 MG TABLET PO SCH ×2 (09:02→20:07)
[2019-01-15] MEDS: LevETIRAcetam 250 MG TABLET PO SCH ×2 (09:02→16:40)
[2019-01-15] MEDS: DOCUSATE SODIUM 100 MG CAPSULE PO SCH (09:02)
[2019-01-15] MEDS: MAGNESIUM OXIDE 400 MG TABLET PO SCH ×2 (09:02→16:40)
[2019-01-15] MEDS: CHLORHEXIDINE GLUCONATE 4% 118 ML TOPICAL LIQUID TP SCH (10:03)
[2019-01-15 17:05] LABS: GLUCOMETER DEV NAME(LOC) 3E.I; GLUCOSE,POINT OF CARE 136 MG/DL (70-110)
[2019-01-15] MEDS: HALOPERIDOL 10 MG TABLET PO SCH (20:08)
[2019-01-15 20:40] VITALS: BP 106/60
[2019-01-16 06:05] LABS: GLUCOMETER DEV NAME(LOC) 3E.I; GLUCOSE,POINT OF CARE 109 MG/DL (70-110)
[2019-01-16] MEDS: LEVOTHYROXINE SODIUM 125 MCG TABLET PO SCH (06:59)
[2019-01-16] MEDS: FERROUS SULFATE 325 MG EC TABLET PO SCH ×2 (07:00→16:06)
[2019-01-16] MEDS: INSULIN LISPRO 100 UNITS/ML SQ PRN (07:06)
[2019-01-16] MEDS: CHLORHEXIDINE GLUCONATE 4% 118 ML TOPICAL LIQUID TP SCH (09:00)
[2019-01-16] MEDS: DIVALPROEX SODIUM 500 MG DR TABLET PO SCH ×2 (09:53→20:24)
[2019-01-16] MEDS: QUEtiapine FUMARATE 200 MG TABLET PO SCH ×2 (09:53→20:24)
[2019-01-16] MEDS: LORATADINE 10 MG TABLET PO SCH (09:54)
[2019-01-16] MEDS: TOPIRAMATE 100 MG TABLET PO SCH ×3 (09:54→17:35)
[2019-01-16] MEDS: OMEPRAZOLE 20 MG CAPSULE PO SCH (09:54)
[2019-01-16] MEDS: ASPIRIN 81 MG EC TABLET PO SCH (09:54)
[2019-01-16] MEDS: ASCORBIC ACID 500 MG TABLET PO SCH (09:54)
[2019-01-16] MEDS: MAGNESIUM OXIDE 400 MG TABLET PO SCH ×2 (09:54→16:06)
[2019-01-16] MEDS: LevETIRAcetam 250 MG TABLET PO SCH ×2 (09:54→16:06)
[2019-01-16] MEDS: DOCUSATE SODIUM 100 MG CAPSULE PO SCH (09:54)
[2019-01-16] MEDS: MULTIVITAMINS WITH MINERALS, THERAPEUTIC TABLET PO SCH (09:54)
[2019-01-16] MEDS: FLUoxetine HCL 20 MG CAPSULE PO SCH (09:54)
[2019-01-16] MEDS: OXYBUTYNIN CHLORIDE 5 MG ER TABLET PO SCH (09:55)
[2019-01-16] MEDS: HALOPERIDOL 5 MG TABLET PO PRN (09:57)
[2019-01-16 16:14] LABS: GLUCOMETER DEV NAME(LOC) 3E.I; GLUCOSE,POINT OF CARE 95 MG/DL (70-110)
[2019-01-16 16:40] VITALS: BP 119/74
[2019-01-16] MEDS: HALOPERIDOL 10 MG TABLET PO SCH (20:25)
[2019-01-17] MEDS: LEVOTHYROXINE SODIUM 125 MCG TABLET PO SCH (06:29)
[2019-01-17] MEDS: FERROUS SULFATE 325 MG EC TABLET PO SCH ×2 (06:29→16:41)
[2019-01-17] MEDS: LORATADINE 10 MG TABLET PO SCH (08:50)
[2019-01-17] MEDS: DOCUSATE SODIUM 100 MG CAPSULE PO SCH (08:50)
[2019-01-17] MEDS: CHLORHEXIDINE GLUCONATE 4% 118 ML TOPICAL LIQUID TP SCH (08:51)
[2019-01-17] MEDS: OMEPRAZOLE 20 MG CAPSULE PO SCH (08:51)
[2019-01-17] MEDS: DIVALPROEX SODIUM 500 MG DR TABLET PO SCH ×2 (08:51→20:51)
[2019-01-17] MEDS: QUEtiapine FUMARATE 200 MG TABLET PO SCH ×2 (08:51→20:51)
[2019-01-17] MEDS: MULTIVITAMINS WITH MINERALS, THERAPEUTIC TABLET PO SCH (08:51)
[2019-01-17] MEDS: OXYBUTYNIN CHLORIDE 5 MG ER TABLET PO SCH (08:51)
[2019-01-17] MEDS: LevETIRAcetam 250 MG TABLET PO SCH ×2 (08:51→16:41)
[2019-01-17] MEDS: ASPIRIN 81 MG EC TABLET PO SCH (08:51)
[2019-01-17] MEDS: TOPIRAMATE 100 MG TABLET PO SCH ×3 (08:51→16:41)
[2019-01-17] MEDS: MAGNESIUM OXIDE 400 MG TABLET PO SCH ×2 (08:51→16:41)
[2019-01-17] MEDS: FLUoxetine HCL 20 MG CAPSULE PO SCH (08:51)
[2019-01-17] MEDS: ASCORBIC ACID 500 MG TABLET PO SCH (08:51)
[2019-01-17 09:09] VITALS: BP 132/99
[2019-01-17 16:49] LABS: GLUCOMETER DEV NAME(LOC) 3E.I; GLUCOSE,POINT OF CARE 125 MG/DL (70-110)
[2019-01-17 17:36] VITALS: BP 125/91
[2019-01-17] MEDS: HALOPERIDOL 10 MG TABLET PO SCH (20:51)
[2019-01-18] MEDS: LEVOTHYROXINE SODIUM 125 MCG TABLET PO SCH (06:34)
[2019-01-18] MEDS: FERROUS SULFATE 325 MG EC TABLET PO SCH ×2 (06:35→17:16)
[2019-01-18] MEDS: MAGNESIUM OXIDE 400 MG TABLET PO SCH ×2 (09:16→17:16)
[2019-01-18] MEDS: OMEPRAZOLE 20 MG CAPSULE PO SCH (09:16)
[2019-01-18] MEDS: ASPIRIN 81 MG EC TABLET PO SCH (09:16)
[2019-01-18] MEDS: LORATADINE 10 MG TABLET PO SCH (09:16)
[2019-01-18] MEDS: DIVALPROEX SODIUM 500 MG DR TABLET PO SCH ×2 (09:17→20:22)
[2019-01-18] MEDS: LevETIRAcetam 250 MG TABLET PO SCH ×2 (09:17→17:16)
[2019-01-18] MEDS: FLUoxetine HCL 20 MG CAPSULE PO SCH (09:17)
[2019-01-18] MEDS: DOCUSATE SODIUM 100 MG CAPSULE PO SCH (09:17)
[2019-01-18] MEDS: TOPIRAMATE 100 MG TABLET PO SCH ×3 (09:17→17:16)
[2019-01-18] MEDS: MULTIVITAMINS WITH MINERALS, THERAPEUTIC TABLET PO SCH (09:17)
[2019-01-18] MEDS: QUEtiapine FUMARATE 200 MG TABLET PO SCH ×2 (09:17→20:22)
[2019-01-18] MEDS: ASCORBIC ACID 500 MG TABLET PO SCH (09:17)
[2019-01-18] MEDS: OXYBUTYNIN CHLORIDE 5 MG ER TABLET PO SCH (09:18)
[2019-01-18] MEDS: CHLORHEXIDINE GLUCONATE 4% 118 ML TOPICAL LIQUID TP SCH (10:50)
[2019-01-18 16:29] LABS: GLUCOMETER DEV NAME(LOC) 3E.I; GLUCOSE,POINT OF CARE 151 MG/DL (70-110)
[2019-01-18 16:50] VITALS: BP 127/65
[2019-01-18] MEDS: HALOPERIDOL 10 MG TABLET PO SCH (20:22)
[2019-01-19] MEDS: FERROUS SULFATE 325 MG EC TABLET PO SCH ×2 (06:33→16:04)
[2019-01-19] MEDS: LEVOTHYROXINE SODIUM 125 MCG TABLET PO SCH (06:33)
[2019-01-19 08:00] VITALS: BP 119/71
[2019-01-19] MEDS: DIVALPROEX SODIUM 500 MG DR TABLET PO SCH ×2 (08:13→22:01)
[2019-01-19] MEDS: DOCUSATE SODIUM 100 MG CAPSULE PO SCH (08:13)
[2019-01-19] MEDS: OMEPRAZOLE 20 MG CAPSULE PO SCH (08:13)
[2019-01-19] MEDS: OXYBUTYNIN CHLORIDE 5 MG ER TABLET PO SCH (08:13)
[2019-01-19] MEDS: LORATADINE 10 MG TABLET PO SCH (08:13)
[2019-01-19] MEDS: ASPIRIN 81 MG EC TABLET PO SCH (08:13)
[2019-01-19] MEDS: LevETIRAcetam 250 MG TABLET PO SCH ×2 (08:13→16:04)
[2019-01-19] MEDS: FLUoxetine HCL 20 MG CAPSULE PO SCH (08:13)
[2019-01-19] MEDS: MAGNESIUM OXIDE 400 MG TABLET PO SCH ×2 (08:13→16:04)
[2019-01-19] MEDS: TOPIRAMATE 100 MG TABLET PO SCH ×3 (08:14→16:04)
[2019-01-19] MEDS: HALOPERIDOL 5 MG TABLET PO PRN (08:14)
[2019-01-19] MEDS: MULTIVITAMINS WITH MINERALS, THERAPEUTIC TABLET PO SCH (08:14)
[2019-01-19] MEDS: QUEtiapine FUMARATE 200 MG TABLET PO SCH ×2 (08:14→22:01)
[2019-01-19] MEDS: ASCORBIC ACID 500 MG TABLET PO SCH (08:14)
[2019-01-19] MEDS: CHLORHEXIDINE GLUCONATE 4% 118 ML TOPICAL LIQUID TP SCH (08:14)
[2019-01-19 16:09] LABS: GLUCOMETER DEV NAME(LOC) 3E.I; GLUCOSE,POINT OF CARE 103 MG/DL (70-110)
[2019-01-19 16:39] VITALS: BP 144/78
[2019-01-19] MEDS: HALOPERIDOL 10 MG TABLET PO SCH (22:00)
[2019-01-20 05:59] LABS: GLUCOMETER DEV NAME(LOC) 3E.I; GLUCOSE,POINT OF CARE 105 MG/DL (70-110)
[2019-01-20] MEDS: FERROUS SULFATE 325 MG EC TABLET PO SCH ×3 (06:47→16:50)
[2019-01-20] MEDS: LEVOTHYROXINE SODIUM 125 MCG TABLET PO SCH ×2 (06:47→06:56)
[2019-01-20] MEDS: OMEPRAZOLE 20 MG CAPSULE PO SCH (08:33)
[2019-01-20] MEDS: FLUoxetine HCL 20 MG CAPSULE PO SCH (08:35)
[2019-01-20] MEDS: ASCORBIC ACID 500 MG TABLET PO SCH (08:36)
[2019-01-20] MEDS: OXYBUTYNIN CHLORIDE 5 MG ER TABLET PO SCH (08:36)
[2019-01-20] MEDS: LevETIRAcetam 250 MG TABLET PO SCH ×2 (08:36→16:51)
[2019-01-20] MEDS: TOPIRAMATE 100 MG TABLET PO SCH ×3 (08:36→16:51)
[2019-01-20] MEDS: DIVALPROEX SODIUM 500 MG DR TABLET PO SCH ×2 (08:37→20:39)
[2019-01-20] MEDS: ASPIRIN 81 MG EC TABLET PO SCH (08:37)
[2019-01-20] MEDS: DOCUSATE SODIUM 100 MG CAPSULE PO SCH (08:37)
[2019-01-20] MEDS: LORATADINE 10 MG TABLET PO SCH (08:37)
[2019-01-20] MEDS: QUEtiapine FUMARATE 200 MG TABLET PO SCH ×2 (08:38→20:40)
[2019-01-20] MEDS: MAGNESIUM OXIDE 400 MG TABLET PO SCH ×2 (08:38→16:50)
[2019-01-20] MEDS: MULTIVITAMINS WITH MINERALS, THERAPEUTIC TABLET PO SCH (08:38)
[2019-01-20] MEDS: CHLORHEXIDINE GLUCONATE 4% 118 ML TOPICAL LIQUID TP SCH (11:42)
[2019-01-20 17:55] LABS: GLUCOMETER DEV NAME(LOC) 3E.I; GLUCOSE,POINT OF CARE 145 MG/DL (70-110)
[2019-01-20] MEDS: HALOPERIDOL 10 MG TABLET PO SCH (20:39)
[2019-01-21 05:54] LABS: GLUCOMETER DEV NAME(LOC) 3E.I; GLUCOSE,POINT OF CARE 99 MG/DL (70-110)
[2019-01-21] MEDS: LEVOTHYROXINE SODIUM 125 MCG TABLET PO SCH (07:00)
[2019-01-21] MEDS: FERROUS SULFATE 325 MG EC TABLET PO SCH ×2 (07:02→18:30)
[2019-01-21] MEDS: LORATADINE 10 MG TABLET PO SCH (09:35)
[2019-01-21] MEDS: OMEPRAZOLE 20 MG CAPSULE PO SCH (09:36)
[2019-01-21] MEDS: FLUoxetine HCL 20 MG CAPSULE PO SCH (09:36)
[2019-01-21] MEDS: DIVALPROEX SODIUM 500 MG DR TABLET PO SCH ×2 (09:37→20:48)
[2019-01-21] MEDS: ASPIRIN 81 MG EC TABLET PO SCH (09:37)
[2019-01-21] MEDS: QUEtiapine FUMARATE 200 MG TABLET PO SCH ×2 (09:38→20:47)
[2019-01-21] MEDS: HALOPERIDOL 5 MG TABLET PO PRN (09:38)
[2019-01-21] MEDS: TOPIRAMATE 100 MG TABLET PO SCH ×3 (09:39→17:55)
[2019-01-21] MEDS: DOCUSATE SODIUM 100 MG CAPSULE PO SCH (09:39)
[2019-01-21] MEDS: LevETIRAcetam 250 MG TABLET PO SCH ×2 (09:39→17:56)
[2019-01-21] MEDS: OXYBUTYNIN CHLORIDE 5 MG ER TABLET PO SCH (09:40)
[2019-01-21] MEDS: MULTIVITAMINS WITH MINERALS, THERAPEUTIC TABLET PO SCH (09:40)
[2019-01-21] MEDS: MAGNESIUM OXIDE 400 MG TABLET PO SCH ×2 (09:42→17:58)
[2019-01-21] MEDS: ASCORBIC ACID 500 MG TABLET PO SCH (09:42)
[2019-01-21] MEDS: CHLORHEXIDINE GLUCONATE 4% 118 ML TOPICAL LIQUID TP SCH (09:51)
[2019-01-21 16:10] VITALS: BP 114/78
[2019-01-21 17:19] LABS: GLUCOMETER DEV NAME(LOC) 3E.I; GLUCOSE,POINT OF CARE 148 MG/DL (70-110)
[2019-01-21] MEDS: INSULIN LISPRO 100 UNITS/ML SQ PRN (17:30)
[2019-01-21] MEDS: HALOPERIDOL 10 MG TABLET PO SCH (20:48)
[2019-01-22] MEDS: FERROUS SULFATE 325 MG EC TABLET PO SCH ×2 (06:46→19:22)
[2019-01-22] MEDS: LEVOTHYROXINE SODIUM 125 MCG TABLET PO SCH (06:46)
[2019-01-22 08:04] VITALS: BP 121/74
[2019-01-22] MEDS: FLUoxetine HCL 20 MG CAPSULE PO SCH (10:07)
[2019-01-22] MEDS: QUEtiapine FUMARATE 200 MG TABLET PO SCH ×2 (10:08→22:05)
[2019-01-22] MEDS: DOCUSATE SODIUM 100 MG CAPSULE PO SCH (10:08)
[2019-01-22] MEDS: LORATADINE 10 MG TABLET PO SCH (10:08)
[2019-01-22] MEDS: MULTIVITAMINS WITH MINERALS, THERAPEUTIC TABLET PO SCH (10:08)
[2019-01-22] MEDS: OMEPRAZOLE 20 MG CAPSULE PO SCH (10:09)
[2019-01-22] MEDS: OXYBUTYNIN CHLORIDE 5 MG ER TABLET PO SCH (10:09)
[2019-01-22] MEDS: LevETIRAcetam 250 MG TABLET PO SCH ×3 (10:09→19:22)
[2019-01-22] MEDS: MAGNESIUM OXIDE 400 MG TABLET PO SCH ×2 (10:09→19:23)
[2019-01-22] MEDS: DIVALPROEX SODIUM 500 MG DR TABLET PO SCH ×2 (10:09→22:05)
[2019-01-22] MEDS: ASCORBIC ACID 500 MG TABLET PO SCH (10:09)
[2019-01-22] MEDS: ASPIRIN 81 MG EC TABLET PO SCH (10:10)
[2019-01-22] MEDS: TOPIRAMATE 100 MG TABLET PO SCH ×3 (10:10→19:23)
[2019-01-22] MEDS: CHLORHEXIDINE GLUCONATE 4% 118 ML TOPICAL LIQUID TP SCH (11:19)
[2019-01-22 16:21] VITALS: BP 112/76
[2019-01-22] MEDS: INSULIN LISPRO 100 UNITS/ML SQ PRN (19:18)
[2019-01-22] MEDS: HALOPERIDOL 10 MG TABLET PO SCH (22:05)
[2019-01-23] MEDS: HALOPERIDOL 5 MG TABLET PO PRN (00:19)
[2019-01-23 05:35] LABS: GLUCOMETER DEV NAME(LOC) 3E.I; GLUCOSE,POINT OF CARE 150 MG/DL (70-110)
[2019-01-23] MEDS: LEVOTHYROXINE SODIUM 125 MCG TABLET PO SCH (06:36)
[2019-01-23] MEDS: FERROUS SULFATE 325 MG EC TABLET PO SCH ×2 (06:36→17:25)
[2019-01-23] MEDS: INSULIN LISPRO 100 UNITS/ML SQ PRN ×2 (06:40→17:21)
[2019-01-23] MEDS: LORATADINE 10 MG TABLET PO SCH (08:34)
[2019-01-23] MEDS: DIVALPROEX SODIUM 500 MG DR TABLET PO SCH ×2 (08:34→20:44)
[2019-01-23] MEDS: MAGNESIUM OXIDE 400 MG TABLET PO SCH ×2 (08:34→17:25)
[2019-01-23] MEDS: QUEtiapine FUMARATE 200 MG TABLET PO SCH ×2 (08:35→20:44)
[2019-01-23] MEDS: TOPIRAMATE 100 MG TABLET PO SCH ×3 (08:35→17:25)
[2019-01-23] MEDS: ASCORBIC ACID 500 MG TABLET PO SCH (08:35)
[2019-01-23] MEDS: MULTIVITAMINS WITH MINERALS, THERAPEUTIC TABLET PO SCH (08:35)
[2019-01-23] MEDS: LevETIRAcetam 250 MG TABLET PO SCH ×2 (08:35→17:25)
[2019-01-23] MEDS: ASPIRIN 81 MG EC TABLET PO SCH (08:35)
[2019-01-23] MEDS: FLUoxetine HCL 20 MG CAPSULE PO SCH (08:35)
[2019-01-23] MEDS: OXYBUTYNIN CHLORIDE 5 MG ER TABLET PO SCH (08:36)
[2019-01-23] MEDS: CHLORHEXIDINE GLUCONATE 4% 118 ML TOPICAL LIQUID TP SCH (08:36)
[2019-01-23] MEDS: OMEPRAZOLE 20 MG CAPSULE PO SCH (08:36)
[2019-01-23] MEDS: DOCUSATE SODIUM 100 MG CAPSULE PO SCH (08:36)
[2019-01-23 16:50] LABS: GLUCOMETER DEV NAME(LOC) 3E.I; GLUCOSE,POINT OF CARE 153 MG/DL (70-110)
[2019-01-23 17:33] VITALS: BP 128/78
[2019-01-23] MEDS: HALOPERIDOL 10 MG TABLET PO SCH (20:44)
[2019-01-24 06:40] LABS: GLUCOMETER DEV NAME(LOC) 3E.I; GLUCOSE,POINT OF CARE 122 MG/DL (70-110)
[2019-01-24] MEDS: LEVOTHYROXINE SODIUM 125 MCG TABLET PO SCH (07:03)
[2019-01-24] MEDS: INSULIN LISPRO 100 UNITS/ML SQ PRN (07:03)
[2019-01-24] MEDS: FERROUS SULFATE 325 MG EC TABLET PO SCH ×2 (07:03→17:25)
[2019-01-24] MEDS: LORATADINE 10 MG TABLET PO SCH (08:28)
[2019-01-24] MEDS: DIVALPROEX SODIUM 500 MG DR TABLET PO SCH ×2 (08:28→20:25)
[2019-01-24] MEDS: DOCUSATE SODIUM 100 MG CAPSULE PO SCH (08:28)
[2019-01-24] MEDS: OXYBUTYNIN CHLORIDE 5 MG ER TABLET PO SCH (08:28)
[2019-01-24] MEDS: ASPIRIN 81 MG EC TABLET PO SCH (08:29)
[2019-01-24] MEDS: ASCORBIC ACID 500 MG TABLET PO SCH (08:35)
[2019-01-24] MEDS: MULTIVITAMINS WITH MINERALS, THERAPEUTIC TABLET PO SCH (08:35)
[2019-01-24] MEDS: TOPIRAMATE 100 MG TABLET PO SCH ×3 (08:35→17:25)
[2019-01-24] MEDS: QUEtiapine FUMARATE 200 MG TABLET PO SCH ×2 (08:35→20:25)
[2019-01-24] MEDS: OMEPRAZOLE 20 MG CAPSULE PO SCH (08:35)
[2019-01-24] MEDS: LevETIRAcetam 250 MG TABLET PO SCH ×2 (08:35→17:25)
[2019-01-24] MEDS: FLUoxetine HCL 20 MG CAPSULE PO SCH (08:35)
[2019-01-24] MEDS: CHLORHEXIDINE GLUCONATE 4% 118 ML TOPICAL LIQUID TP SCH (08:35)
[2019-01-24] MEDS: MAGNESIUM OXIDE 400 MG TABLET PO SCH ×2 (08:35→17:25)
[2019-01-24 17:40] LABS: GLUCOMETER DEV NAME(LOC) 3E.I; GLUCOSE,POINT OF CARE 93 MG/DL (70-110)
[2019-01-24] MEDS: HALOPERIDOL 10 MG TABLET PO SCH (20:25)
[2019-01-25] MEDS: LEVOTHYROXINE SODIUM 125 MCG TABLET PO SCH (06:53)
[2019-01-25] MEDS: FERROUS SULFATE 325 MG EC TABLET PO SCH ×2 (06:54→17:21)
[2019-01-25] MEDS: LORATADINE 10 MG TABLET PO SCH (08:20)
[2019-01-25] MEDS: DIVALPROEX SODIUM 500 MG DR TABLET PO SCH ×2 (08:20→20:47)
[2019-01-25] MEDS: ASPIRIN 81 MG EC TABLET PO SCH (08:20)
[2019-01-25] MEDS: OMEPRAZOLE 20 MG CAPSULE PO SCH (08:20)
[2019-01-25] MEDS: LevETIRAcetam 250 MG TABLET PO SCH ×2 (08:20→17:21)
[2019-01-25] MEDS: TOPIRAMATE 100 MG TABLET PO SCH ×3 (08:20→17:22)
[2019-01-25] MEDS: OXYBUTYNIN CHLORIDE 5 MG ER TABLET PO SCH (08:20)
[2019-01-25] MEDS: MAGNESIUM OXIDE 400 MG TABLET PO SCH ×2 (08:20→17:21)
[2019-01-25] MEDS: MULTIVITAMINS WITH MINERALS, THERAPEUTIC TABLET PO SCH (08:20)
[2019-01-25] MEDS: QUEtiapine FUMARATE 200 MG TABLET PO SCH ×2 (08:20→20:05)
[2019-01-25] MEDS: FLUoxetine HCL 20 MG CAPSULE PO SCH (08:20)
[2019-01-25] MEDS: DOCUSATE SODIUM 100 MG CAPSULE PO SCH (08:20)
[2019-01-25] MEDS: HALOPERIDOL 5 MG TABLET PO PRN (08:21)
[2019-01-25] MEDS: ASCORBIC ACID 500 MG TABLET PO SCH (08:21)
[2019-01-25] MEDS: CHLORHEXIDINE GLUCONATE 4% 118 ML TOPICAL LIQUID TP SCH (08:21)
[2019-01-25 17:01] LABS: GLUCOMETER DEV NAME(LOC) 3E.I; GLUCOSE,POINT OF CARE 204 MG/DL (70-110)
[2019-01-25] MEDS: INSULIN LISPRO 100 UNITS/ML SQ PRN (17:09)
[2019-01-25] MEDS: HALOPERIDOL 10 MG TABLET PO SCH (20:05)
[2019-01-26 05:45] LABS: GLUCOMETER DEV NAME(LOC) 3E.I; GLUCOSE,POINT OF CARE 137 MG/DL (70-110)
[2019-01-26] MEDS: FERROUS SULFATE 325 MG EC TABLET PO SCH ×2 (06:34→16:52)
[2019-01-26] MEDS: LEVOTHYROXINE SODIUM 125 MCG TABLET PO SCH (06:35)
[2019-01-26 06:56] VITALS: BP 128/53
[2019-01-26] MEDS: MULTIVITAMINS WITH MINERALS, THERAPEUTIC TABLET PO SCH (08:02)
[2019-01-26] MEDS: MAGNESIUM OXIDE 400 MG TABLET PO SCH ×2 (08:03→16:52)
[2019-01-26] MEDS: QUEtiapine FUMARATE 200 MG TABLET PO SCH ×2 (08:03→20:18)
[2019-01-26] MEDS: HALOPERIDOL 5 MG TABLET PO PRN ×2 (08:03→08:11)
[2019-01-26] MEDS: DOCUSATE SODIUM 100 MG CAPSULE PO SCH (08:03)
[2019-01-26] MEDS: ASPIRIN 81 MG EC TABLET PO SCH (08:03)
[2019-01-26] MEDS: LORATADINE 10 MG TABLET PO SCH (08:03)
[2019-01-26] MEDS: DIVALPROEX SODIUM 500 MG DR TABLET PO SCH ×2 (08:03→20:18)
[2019-01-26] MEDS: OXYBUTYNIN CHLORIDE 5 MG ER TABLET PO SCH (08:04)
[2019-01-26] MEDS: ASCORBIC ACID 500 MG TABLET PO SCH (08:04)
[2019-01-26] MEDS: TOPIRAMATE 100 MG TABLET PO SCH ×3 (08:04→16:53)
[2019-01-26] MEDS: CHLORHEXIDINE GLUCONATE 4% 118 ML TOPICAL LIQUID TP SCH (08:04)
[2019-01-26] MEDS: LevETIRAcetam 250 MG TABLET PO SCH ×2 (08:04→16:53)
[2019-01-26] MEDS: FLUoxetine HCL 20 MG CAPSULE PO SCH (08:05)
[2019-01-26] MEDS: OMEPRAZOLE 20 MG CAPSULE PO SCH (08:06)
[2019-01-26 09:11] VITALS: BP 152/94
[2019-01-26 17:45] LABS: GLUCOMETER DEV NAME(LOC) 3E.I; GLUCOSE,POINT OF CARE 144 MG/DL (70-110)
[2019-01-26] MEDS: HALOPERIDOL 10 MG TABLET PO SCH (20:18)
[2019-01-27] MEDS: FERROUS SULFATE 325 MG EC TABLET PO SCH ×2 (06:53→17:18)
[2019-01-27] MEDS: LEVOTHYROXINE SODIUM 125 MCG TABLET PO SCH (06:53)
[2019-01-27] MEDS: DOCUSATE SODIUM 100 MG CAPSULE PO SCH (08:41)
[2019-01-27] MEDS: TOPIRAMATE 100 MG TABLET PO SCH ×3 (08:41→17:18)
[2019-01-27] MEDS: HALOPERIDOL 5 MG TABLET PO PRN (08:41)
[2019-01-27] MEDS: FLUoxetine HCL 20 MG CAPSULE PO SCH (08:41)
[2019-01-27] MEDS: LevETIRAcetam 250 MG TABLET PO SCH ×2 (08:41→17:18)
[2019-01-27] MEDS: LORATADINE 10 MG TABLET PO SCH (08:41)
[2019-01-27] MEDS: MULTIVITAMINS WITH MINERALS, THERAPEUTIC TABLET PO SCH (08:41)
[2019-01-27] MEDS: ASCORBIC ACID 500 MG TABLET PO SCH (08:41)
[2019-01-27] MEDS: ASPIRIN 81 MG EC TABLET PO SCH (08:42)
[2019-01-27] MEDS: DIVALPROEX SODIUM 500 MG DR TABLET PO SCH ×2 (08:42→20:44)
[2019-01-27] MEDS: QUEtiapine FUMARATE 200 MG TABLET PO SCH ×2 (08:42→20:44)
[2019-01-27] MEDS: MAGNESIUM OXIDE 400 MG TABLET PO SCH ×2 (08:42→17:18)
[2019-01-27] MEDS: OXYBUTYNIN CHLORIDE 5 MG ER TABLET PO SCH (08:42)
[2019-01-27] MEDS: OMEPRAZOLE 20 MG CAPSULE PO SCH (08:42)
[2019-01-27] MEDS: CHLORHEXIDINE GLUCONATE 4% 118 ML TOPICAL LIQUID TP SCH (08:43)
[2019-01-27 17:25] LABS: GLUCOMETER DEV NAME(LOC) 3E.I; GLUCOSE,POINT OF CARE 111 MG/DL (70-110)
[2019-01-27] MEDS: HALOPERIDOL 10 MG TABLET PO SCH (20:44)
[2019-01-28 06:16] LABS: GLUCOMETER DEV NAME(LOC) 3E.I; GLUCOSE,POINT OF CARE 80 MG/DL (70-110)
[2019-01-28] MEDS: FERROUS SULFATE 325 MG EC TABLET PO SCH ×2 (07:00→16:59)
[2019-01-28] MEDS: LEVOTHYROXINE SODIUM 125 MCG TABLET PO SCH (07:01)
[2019-01-28] MEDS: HALOPERIDOL 5 MG TABLET PO PRN (08:22)
[2019-01-28] MEDS: MAGNESIUM OXIDE 400 MG TABLET PO SCH ×2 (08:23→16:59)
[2019-01-28] MEDS: LORATADINE 10 MG TABLET PO SCH (08:23)
[2019-01-28] MEDS: MULTIVITAMINS WITH MINERALS, THERAPEUTIC TABLET PO SCH (08:23)
[2019-01-28] MEDS: DOCUSATE SODIUM 100 MG CAPSULE PO SCH (08:23)
[2019-01-28] MEDS: ASPIRIN 81 MG EC TABLET PO SCH (08:23)
[2019-01-28] MEDS: DIVALPROEX SODIUM 500 MG DR TABLET PO SCH ×2 (08:23→20:12)
[2019-01-28] MEDS: OMEPRAZOLE 20 MG CAPSULE PO SCH (08:23)
[2019-01-28] MEDS: QUEtiapine FUMARATE 200 MG TABLET PO SCH ×2 (08:24→20:12)
[2019-01-28] MEDS: OXYBUTYNIN CHLORIDE 5 MG ER TABLET PO SCH (08:24)
[2019-01-28] MEDS: ASCORBIC ACID 500 MG TABLET PO SCH (08:24)
[2019-01-28] MEDS: TOPIRAMATE 100 MG TABLET PO SCH ×3 (08:24→16:59)
[2019-01-28] MEDS: CHLORHEXIDINE GLUCONATE 4% 118 ML TOPICAL LIQUID TP SCH (08:24)
[2019-01-28] MEDS: FLUoxetine HCL 20 MG CAPSULE PO SCH (08:24)
[2019-01-28] MEDS: LevETIRAcetam 250 MG TABLET PO SCH ×2 (08:25→16:59)
[2019-01-28 17:10] LABS: GLUCOMETER DEV NAME(LOC) 3E.I; GLUCOSE,POINT OF CARE 92 MG/DL (70-110)
[2019-01-28] MEDS: HALOPERIDOL 10 MG TABLET PO SCH (20:12)
[2019-01-29] MEDS: HALOPERIDOL 5 MG TABLET PO PRN ×2 (01:43→08:44)
[2019-01-29 05:25] LABS: GLUCOMETER DEV NAME(LOC) 3E.I; GLUCOSE,POINT OF CARE 116 MG/DL (70-110)
[2019-01-29] MEDS: FERROUS SULFATE 325 MG EC TABLET PO SCH ×2 (06:37→16:33)
[2019-01-29] MEDS: LEVOTHYROXINE SODIUM 125 MCG TABLET PO SCH (06:37)
[2019-01-29 06:57] VITALS: BP 131/75
[2019-01-29] MEDS: CHLORHEXIDINE GLUCONATE 4% 118 ML TOPICAL LIQUID TP SCH (08:40)
[2019-01-29] MEDS: QUEtiapine FUMARATE 200 MG TABLET PO SCH ×2 (08:40→20:10)
[2019-01-29] MEDS: TOPIRAMATE 100 MG TABLET PO SCH ×3 (08:40→16:32)
[2019-01-29] MEDS: DOCUSATE SODIUM 100 MG CAPSULE PO SCH (08:41)
[2019-01-29] MEDS: ASPIRIN 81 MG EC TABLET PO SCH (08:41)
[2019-01-29] MEDS: MAGNESIUM OXIDE 400 MG TABLET PO SCH ×2 (08:41→16:33)
[2019-01-29] MEDS: FLUoxetine HCL 20 MG CAPSULE PO SCH (08:41)
[2019-01-29] MEDS: LevETIRAcetam 250 MG TABLET PO SCH ×2 (08:41→16:33)
[2019-01-29] MEDS: LORATADINE 10 MG TABLET PO SCH (08:41)
[2019-01-29] MEDS: MULTIVITAMINS WITH MINERALS, THERAPEUTIC TABLET PO SCH (08:41)
[2019-01-29] MEDS: OMEPRAZOLE 20 MG CAPSULE PO SCH (08:41)
[2019-01-29] MEDS: OXYBUTYNIN CHLORIDE 5 MG ER TABLET PO SCH (08:41)
[2019-01-29] MEDS: DIVALPROEX SODIUM 500 MG DR TABLET PO SCH ×2 (08:41→20:10)
[2019-01-29] MEDS: ASCORBIC ACID 500 MG TABLET PO SCH (08:41)
[2019-01-29] MEDS: MAGNESIUM HYDROXIDE SUSPENSION 30 ML UDCUP PO PRN (08:44)
[2019-01-29 16:25] LABS: GLUCOMETER DEV NAME(LOC) 3E.C; GLUCOSE,POINT OF CARE 123 MG/DL (70-110)
[2019-01-29 18:45] VITALS: BP 148/70
[2019-01-29] MEDS: HALOPERIDOL 10 MG TABLET PO SCH (20:10)
[2019-01-30 05:41] LABS: GLUCOMETER DEV NAME(LOC) 3E.I; GLUCOSE,POINT OF CARE 103 MG/DL (70-110)
[2019-01-30] MEDS: LEVOTHYROXINE SODIUM 125 MCG TABLET PO SCH (06:37)
[2019-01-30] MEDS: FERROUS SULFATE 325 MG EC TABLET PO SCH ×2 (06:37→16:50)
[2019-01-30 08:20] VITALS: BP 120/64
[2019-01-30] MEDS: LORATADINE 10 MG TABLET PO SCH (08:27)
[2019-01-30] MEDS: DIVALPROEX SODIUM 500 MG DR TABLET PO SCH ×2 (08:27→21:06)
[2019-01-30] MEDS: OMEPRAZOLE 20 MG CAPSULE PO SCH (08:27)
[2019-01-30] MEDS: MAGNESIUM OXIDE 400 MG TABLET PO SCH ×2 (08:27→16:50)
[2019-01-30] MEDS: ASPIRIN 81 MG EC TABLET PO SCH (08:27)
[2019-01-30] MEDS: OXYBUTYNIN CHLORIDE 5 MG ER TABLET PO SCH (08:27)
[2019-01-30] MEDS: DOCUSATE SODIUM 100 MG CAPSULE PO SCH (08:27)
[2019-01-30] MEDS: FLUoxetine HCL 20 MG CAPSULE PO SCH (08:27)
[2019-01-30] MEDS: LevETIRAcetam 250 MG TABLET PO SCH ×2 (08:27→16:50)
[2019-01-30] MEDS: QUEtiapine FUMARATE 200 MG TABLET PO SCH ×2 (08:28→21:07)
[2019-01-30] MEDS: ASCORBIC ACID 500 MG TABLET PO SCH (08:28)
[2019-01-30] MEDS: MULTIVITAMINS WITH MINERALS, THERAPEUTIC TABLET PO SCH (08:28)
[2019-01-30] MEDS: CHLORHEXIDINE GLUCONATE 4% 118 ML TOPICAL LIQUID TP SCH (08:28)
[2019-01-30] MEDS: TOPIRAMATE 100 MG TABLET PO SCH ×3 (08:28→16:50)
[2019-01-30 16:35] LABS: GLUCOMETER DEV NAME(LOC) 3E.I; GLUCOSE,POINT OF CARE 162 MG/DL (70-110)
[2019-01-30] MEDS: INSULIN LISPRO 100 UNITS/ML SQ PRN (17:39)
[2019-01-30] MEDS: HALOPERIDOL 10 MG TABLET PO SCH (21:06)
[2019-01-30 21:19] VITALS: BP 125/72
[2019-01-31] MEDS: INSULIN LISPRO 100 UNITS/ML SQ PRN ×2 (05:58→17:44)
[2019-01-31 06:17] LABS: GLUCOMETER DEV NAME(LOC) 3E.I; GLUCOSE,POINT OF CARE 157 MG/DL (70-110)
[2019-01-31] MEDS: LEVOTHYROXINE SODIUM 125 MCG TABLET PO SCH (06:30)
[2019-01-31] MEDS: FERROUS SULFATE 325 MG EC TABLET PO SCH ×2 (06:30→17:04)
[2019-01-31] MEDS: TOPIRAMATE 100 MG TABLET PO SCH ×3 (08:21→17:04)
[2019-01-31] MEDS: LevETIRAcetam 250 MG TABLET PO SCH ×2 (08:22→17:04)
[2019-01-31] MEDS: FLUoxetine HCL 20 MG CAPSULE PO SCH (08:22)
[2019-01-31] MEDS: OMEPRAZOLE 20 MG CAPSULE PO SCH (08:22)
[2019-01-31] MEDS: QUEtiapine FUMARATE 200 MG TABLET PO SCH ×2 (08:22→20:12)
[2019-01-31] MEDS: ASCORBIC ACID 500 MG TABLET PO SCH (08:22)
[2019-01-31] MEDS: LORATADINE 10 MG TABLET PO SCH (08:22)
[2019-01-31] MEDS: OXYBUTYNIN CHLORIDE 5 MG ER TABLET PO SCH (08:22)
[2019-01-31] MEDS: DOCUSATE SODIUM 100 MG CAPSULE PO SCH (08:23)
[2019-01-31] MEDS: ASPIRIN 81 MG EC TABLET PO SCH (08:23)
[2019-01-31] MEDS: MULTIVITAMINS WITH MINERALS, THERAPEUTIC TABLET PO SCH (08:23)
[2019-01-31] MEDS: MAGNESIUM OXIDE 400 MG TABLET PO SCH ×2 (08:23→17:04)
[2019-01-31] MEDS: HALOPERIDOL 5 MG TABLET PO PRN (08:23)
[2019-01-31] MEDS: DIVALPROEX SODIUM 500 MG DR TABLET PO SCH ×2 (08:24→20:12)
[2019-01-31] MEDS: CHLORHEXIDINE GLUCONATE 4% 118 ML TOPICAL LIQUID TP SCH (08:25)
[2019-01-31 16:06] VITALS: BP 124/78
[2019-01-31 17:46] LABS: GLUCOMETER DEV NAME(LOC) 3E.I; GLUCOSE,POINT OF CARE 148 MG/DL (70-110)
[2019-01-31] MEDS: HALOPERIDOL 10 MG TABLET PO SCH (20:12)
[2019-02-01 06:40] LABS: GLUCOMETER DEV NAME(LOC) 3E.I; GLUCOSE,POINT OF CARE 82 MG/DL (70-110)
[2019-02-01] MEDS: INSULIN LISPRO 100 UNITS/ML SQ PRN ×2 (06:43→17:56)
[2019-02-01] MEDS: LEVOTHYROXINE SODIUM 125 MCG TABLET PO SCH (06:44)
[2019-02-01] MEDS: FERROUS SULFATE 325 MG EC TABLET PO SCH ×2 (06:44→17:56)
[2019-02-01] MEDS: QUEtiapine FUMARATE 200 MG TABLET PO SCH ×2 (07:30→20:16)
[2019-02-01] MEDS: MULTIVITAMINS WITH MINERALS, THERAPEUTIC TABLET PO SCH (07:30)
[2019-02-01] MEDS: FLUoxetine HCL 20 MG CAPSULE PO SCH (07:30)
[2019-02-01] MEDS: ASPIRIN 81 MG EC TABLET PO SCH (07:30)
[2019-02-01] MEDS: DOCUSATE SODIUM 100 MG CAPSULE PO SCH (07:31)
[2019-02-01] MEDS: TOPIRAMATE 100 MG TABLET PO SCH ×3 (07:31→17:56)
[2019-02-01] MEDS: MAGNESIUM OXIDE 400 MG TABLET PO SCH ×2 (07:31→17:56)
[2019-02-01] MEDS: DIVALPROEX SODIUM 500 MG DR TABLET PO SCH ×2 (07:31→20:16)
[2019-02-01] MEDS: LORATADINE 10 MG TABLET PO SCH (07:31)
[2019-02-01] MEDS: LevETIRAcetam 250 MG TABLET PO SCH ×2 (07:31→17:56)
[2019-02-01] MEDS: OXYBUTYNIN CHLORIDE 5 MG ER TABLET PO SCH (07:32)
[2019-02-01] MEDS: OMEPRAZOLE 20 MG CAPSULE PO SCH (07:32)
[2019-02-01] MEDS: CHLORHEXIDINE GLUCONATE 4% 118 ML TOPICAL LIQUID TP SCH (07:32)
[2019-02-01] MEDS: ASCORBIC ACID 500 MG TABLET PO SCH (07:32)
[2019-02-01] MEDS: HALOPERIDOL 5 MG TABLET PO PRN (07:34)
[2019-02-01 10:24] VITALS: BP 97/69
[2019-02-01 16:16] VITALS: BP 122/86
[2019-02-01 16:55] LABS: GLUCOMETER DEV NAME(LOC) 3E.I; GLUCOSE,POINT OF CARE 155 MG/DL (70-110)
[2019-02-01] MEDS: HALOPERIDOL 10 MG TABLET PO SCH (20:16)
[2019-02-02] MEDS: LEVOTHYROXINE SODIUM 125 MCG TABLET PO SCH (06:30)
[2019-02-02] MEDS: FERROUS SULFATE 325 MG EC TABLET PO SCH ×2 (06:30→16:44)
[2019-02-02] MEDS: ASPIRIN 81 MG EC TABLET PO SCH (09:25)
[2019-02-02] MEDS: OXYBUTYNIN CHLORIDE 5 MG ER TABLET PO SCH (09:25)
[2019-02-02] MEDS: FLUoxetine HCL 20 MG CAPSULE PO SCH (09:25)
[2019-02-02] MEDS: HALOPERIDOL 5 MG TABLET PO PRN ×2 (09:25→13:59)
[2019-02-02] MEDS: DIVALPROEX SODIUM 500 MG DR TABLET PO SCH ×2 (09:25→20:22)
[2019-02-02] MEDS: ASCORBIC ACID 500 MG TABLET PO SCH (09:25)
[2019-02-02] MEDS: QUEtiapine FUMARATE 200 MG TABLET PO SCH ×2 (09:25→20:22)
[2019-02-02] MEDS: LevETIRAcetam 250 MG TABLET PO SCH ×2 (09:26→16:44)
[2019-02-02] MEDS: TOPIRAMATE 100 MG TABLET PO SCH ×3 (09:26→16:44)
[2019-02-02] MEDS: OMEPRAZOLE 20 MG CAPSULE PO SCH (09:26)
[2019-02-02] MEDS: MAGNESIUM OXIDE 400 MG TABLET PO SCH ×2 (09:26→16:44)
[2019-02-02] MEDS: LORATADINE 10 MG TABLET PO SCH (09:26)
[2019-02-02] MEDS: MULTIVITAMINS WITH MINERALS, THERAPEUTIC TABLET PO SCH (09:26)
[2019-02-02] MEDS: DOCUSATE SODIUM 100 MG CAPSULE PO SCH (09:26)
[2019-02-02 10:59] VITALS: BP 124/78
[2019-02-02] MEDS: CHLORHEXIDINE GLUCONATE 4% 118 ML TOPICAL LIQUID TP SCH (11:13)
[2019-02-02 17:12] VITALS: BP 119/74
[2019-02-02 17:26] LABS: GLUCOMETER DEV NAME(LOC) 3E.I; GLUCOSE,POINT OF CARE 116 MG/DL (70-110)
[2019-02-02] MEDS: HALOPERIDOL 10 MG TABLET PO SCH (20:22)
[2019-02-03 06:26] LABS: GLUCOMETER DEV NAME(LOC) 3E.I; GLUCOSE,POINT OF CARE 152 MG/DL (70-110)
[2019-02-03] MEDS: INSULIN LISPRO 100 UNITS/ML SQ PRN (06:48)
[2019-02-03] MEDS: LEVOTHYROXINE SODIUM 125 MCG TABLET PO SCH (06:50)
[2019-02-03] MEDS: FERROUS SULFATE 325 MG EC TABLET PO SCH ×2 (06:50→16:20)
[2019-02-03] MEDS: FLUoxetine HCL 20 MG CAPSULE PO SCH (08:48)
[2019-02-03] MEDS: QUEtiapine FUMARATE 200 MG TABLET PO SCH ×2 (08:48→20:25)
[2019-02-03] MEDS: HALOPERIDOL 5 MG TABLET PO PRN ×2 (08:48→14:29)
[2019-02-03] MEDS: ASCORBIC ACID 500 MG TABLET PO SCH (08:49)
[2019-02-03] MEDS: LORATADINE 10 MG TABLET PO SCH (08:49)
[2019-02-03] MEDS: MULTIVITAMINS WITH MINERALS, THERAPEUTIC TABLET PO SCH (08:49)
[2019-02-03] MEDS: TOPIRAMATE 100 MG TABLET PO SCH ×3 (08:49→16:20)
[2019-02-03] MEDS: MAGNESIUM OXIDE 400 MG TABLET PO SCH ×2 (08:49→16:20)
[2019-02-03] MEDS: ASPIRIN 81 MG EC TABLET PO SCH (08:49)
[2019-02-03] MEDS: LevETIRAcetam 250 MG TABLET PO SCH ×2 (08:49→16:20)
[2019-02-03] MEDS: OXYBUTYNIN CHLORIDE 5 MG ER TABLET PO SCH (08:49)
[2019-02-03] MEDS: DOCUSATE SODIUM 100 MG CAPSULE PO SCH (08:49)
[2019-02-03] MEDS: DIVALPROEX SODIUM 500 MG DR TABLET PO SCH ×2 (08:49→20:25)
[2019-02-03] MEDS: OMEPRAZOLE 20 MG CAPSULE PO SCH (08:49)
[2019-02-03 09:24] VITALS: BP 125/87
[2019-02-03] MEDS: CHLORHEXIDINE GLUCONATE 4% 118 ML TOPICAL LIQUID TP SCH (10:51)
[2019-02-03 16:39] LABS: GLUCOMETER DEV NAME(LOC) 3E.I; GLUCOSE,POINT OF CARE 117 MG/DL (70-110)
[2019-02-03 17:15] VITALS: BP 121/66
[2019-02-03] MEDS: HALOPERIDOL 10 MG TABLET PO SCH (20:25)
[2019-02-04] MEDS: LEVOTHYROXINE SODIUM 125 MCG TABLET PO SCH (06:33)
[2019-02-04] MEDS: FERROUS SULFATE 325 MG EC TABLET PO SCH ×2 (06:34→18:30)
[2019-02-04] MEDS: LevETIRAcetam 250 MG TABLET PO SCH ×2 (09:00→18:00)
[2019-02-04] MEDS: LORATADINE 10 MG TABLET PO SCH (09:00)
[2019-02-04] MEDS: CHLORHEXIDINE GLUCONATE 4% 118 ML TOPICAL LIQUID TP SCH (09:00)
[2019-02-04] MEDS: OMEPRAZOLE 20 MG CAPSULE PO SCH (09:00)
[2019-02-04] MEDS: ASCORBIC ACID 500 MG TABLET PO SCH (09:00)
[2019-02-04] MEDS: QUEtiapine FUMARATE 200 MG TABLET PO SCH ×2 (09:00→20:07)
[2019-02-04] MEDS: DIVALPROEX SODIUM 500 MG DR TABLET PO SCH ×2 (09:00→20:07)
[2019-02-04] MEDS: MAGNESIUM OXIDE 400 MG TABLET PO SCH ×2 (09:00→18:00)
[2019-02-04] MEDS: FLUoxetine HCL 20 MG CAPSULE PO SCH (09:00)
[2019-02-04] MEDS: TOPIRAMATE 100 MG TABLET PO SCH ×3 (09:00→18:00)
[2019-02-04] MEDS: DOCUSATE SODIUM 100 MG CAPSULE PO SCH (09:00)
[2019-02-04] MEDS: OXYBUTYNIN CHLORIDE 5 MG ER TABLET PO SCH (09:00)
[2019-02-04] MEDS: MULTIVITAMINS WITH MINERALS, THERAPEUTIC TABLET PO SCH (09:00)
[2019-02-04] MEDS: ASPIRIN 81 MG EC TABLET PO SCH (09:00)
[2019-02-04 16:07] VITALS: BP 124/81
[2019-02-04 17:21] LABS: GLUCOMETER DEV NAME(LOC) 3E.I; GLUCOSE,POINT OF CARE 124 MG/DL (70-110)
[2019-02-04] MEDS: HALOPERIDOL 10 MG TABLET PO SCH (20:07)
[2019-02-05 06:10] LABS: GLUCOMETER DEV NAME(LOC) 3E.I; GLUCOSE,POINT OF CARE 105 MG/DL (70-110)
[2019-02-05] MEDS: LEVOTHYROXINE SODIUM 125 MCG TABLET PO SCH (06:58)
[2019-02-05] MEDS: FERROUS SULFATE 325 MG EC TABLET PO SCH ×2 (06:59→16:36)
[2019-02-05 09:16] VITALS: BP 114/74
[2019-02-05] MEDS: ASCORBIC ACID 500 MG TABLET PO SCH (09:16)
[2019-02-05] MEDS: OXYBUTYNIN CHLORIDE 5 MG ER TABLET PO SCH (09:17)
[2019-02-05] MEDS: MAGNESIUM OXIDE 400 MG TABLET PO SCH ×2 (09:17→16:35)
[2019-02-05] MEDS: FLUoxetine HCL 20 MG CAPSULE PO SCH (09:17)
[2019-02-05] MEDS: QUEtiapine FUMARATE 200 MG TABLET PO SCH ×2 (09:17→20:18)
[2019-02-05] MEDS: DIVALPROEX SODIUM 500 MG DR TABLET PO SCH ×2 (09:17→20:18)
[2019-02-05] MEDS: MULTIVITAMINS WITH MINERALS, THERAPEUTIC TABLET PO SCH (09:17)
[2019-02-05] MEDS: OMEPRAZOLE 20 MG CAPSULE PO SCH (09:17)
[2019-02-05] MEDS: LORATADINE 10 MG TABLET PO SCH (09:18)
[2019-02-05] MEDS: DOCUSATE SODIUM 100 MG CAPSULE PO SCH (09:18)
[2019-02-05] MEDS: TOPIRAMATE 100 MG TABLET PO SCH ×3 (09:18→16:35)
[2019-02-05] MEDS: ASPIRIN 81 MG EC TABLET PO SCH (09:18)
[2019-02-05] MEDS: LevETIRAcetam 250 MG TABLET PO SCH ×2 (09:18→16:35)
[2019-02-05] MEDS: CHLORHEXIDINE GLUCONATE 4% 118 ML TOPICAL LIQUID TP SCH (10:00)
[2019-02-05 17:35] LABS: GLUCOMETER DEV NAME(LOC) 3E.I; GLUCOSE,POINT OF CARE 124 MG/DL (70-110)
[2019-02-05] MEDS: HALOPERIDOL 10 MG TABLET PO SCH (20:18)
[2019-02-05 22:37] VITALS: BP 128/85
[2019-02-06 05:32] LABS: GLUCOMETER DEV NAME(LOC) 3E.I; GLUCOSE,POINT OF CARE 114 MG/DL (70-110)
[2019-02-06] MEDS: FERROUS SULFATE 325 MG EC TABLET PO SCH ×2 (06:27→16:04)
[2019-02-06] MEDS: LEVOTHYROXINE SODIUM 125 MCG TABLET PO SCH (06:27)
[2019-02-06] MEDS: INSULIN LISPRO 100 UNITS/ML SQ PRN ×2 (06:27→17:09)
[2019-02-06 07:19] VITALS: BP 118/75
[2019-02-06] MEDS: OXYBUTYNIN CHLORIDE 5 MG ER TABLET PO SCH (07:51)
[2019-02-06] MEDS: QUEtiapine FUMARATE 200 MG TABLET PO SCH ×2 (07:51→20:24)
[2019-02-06] MEDS: FLUoxetine HCL 20 MG CAPSULE PO SCH (07:52)
[2019-02-06] MEDS: LORATADINE 10 MG TABLET PO SCH (07:52)
[2019-02-06] MEDS: DIVALPROEX SODIUM 500 MG DR TABLET PO SCH ×2 (07:52→20:24)
[2019-02-06] MEDS: OMEPRAZOLE 20 MG CAPSULE PO SCH (07:52)
[2019-02-06] MEDS: ASPIRIN 81 MG EC TABLET PO SCH (07:52)
[2019-02-06] MEDS: ASCORBIC ACID 500 MG TABLET PO SCH (07:52)
[2019-02-06] MEDS: MULTIVITAMINS WITH MINERALS, THERAPEUTIC TABLET PO SCH (07:52)
[2019-02-06] MEDS: MAGNESIUM OXIDE 400 MG TABLET PO SCH ×2 (07:52→16:04)
[2019-02-06] MEDS: TOPIRAMATE 100 MG TABLET PO SCH ×2 (07:53→16:04)
[2019-02-06] MEDS: DOCUSATE SODIUM 100 MG CAPSULE PO SCH (07:53)
[2019-02-06] MEDS: LevETIRAcetam 250 MG TABLET PO SCH ×2 (07:53→16:04)
[2019-02-06] MEDS: HALOPERIDOL 5 MG TABLET PO PRN (07:57)
[2019-02-06] MEDS: CHLORHEXIDINE GLUCONATE 4% 118 ML TOPICAL LIQUID TP SCH (09:00)
[2019-02-06 09:11] VITALS: BP 97/80
[2019-02-06 16:41] LABS: GLUCOMETER DEV NAME(LOC) 3E.I; GLUCOSE,POINT OF CARE 161 MG/DL (70-110)
[2019-02-06 17:06] LABS: GLUCOMETER DEV NAME(LOC) 3E.I; GLUCOSE,POINT OF CARE 151 MG/DL (70-110)
[2019-02-06] MEDS: HALOPERIDOL 10 MG TABLET PO SCH (20:24)
[2019-02-06 21:15] LABS: GLUCOMETER DEV NAME(LOC) 3E.I; GLUCOSE,POINT OF CARE 99 MG/DL (70-110)
[2019-02-07] MEDS: FERROUS SULFATE 325 MG EC TABLET PO SCH ×2 (06:42→16:47)
[2019-02-07] MEDS: LEVOTHYROXINE SODIUM 125 MCG TABLET PO SCH (06:42)
[2019-02-07] MEDS: LevETIRAcetam 250 MG TABLET PO SCH ×2 (08:39→16:45)
[2019-02-07] MEDS: DOCUSATE SODIUM 100 MG CAPSULE PO SCH (08:41)
[2019-02-07] MEDS: OXYBUTYNIN CHLORIDE 5 MG ER TABLET PO SCH (08:41)
[2019-02-07] MEDS: QUEtiapine FUMARATE 200 MG TABLET PO SCH ×2 (08:41→20:34)
[2019-02-07] MEDS: ASPIRIN 81 MG EC TABLET PO SCH (08:41)
[2019-02-07] MEDS: ASCORBIC ACID 500 MG TABLET PO SCH (08:41)
[2019-02-07] MEDS: OMEPRAZOLE 20 MG CAPSULE PO SCH (08:41)
[2019-02-07] MEDS: MAGNESIUM OXIDE 400 MG TABLET PO SCH ×2 (08:41→16:47)
[2019-02-07] MEDS: DIVALPROEX SODIUM 500 MG DR TABLET PO SCH ×2 (08:41→20:34)
[2019-02-07] MEDS: TOPIRAMATE 100 MG TABLET PO SCH ×3 (08:42→16:45)
[2019-02-07] MEDS: LORATADINE 10 MG TABLET PO SCH (08:42)
[2019-02-07] MEDS: FLUoxetine HCL 20 MG CAPSULE PO SCH (08:42)
[2019-02-07] MEDS: MULTIVITAMINS WITH MINERALS, THERAPEUTIC TABLET PO SCH (08:42)
[2019-02-07] MEDS: CHLORHEXIDINE GLUCONATE 4% 118 ML TOPICAL LIQUID TP SCH (09:00)
[2019-02-07 16:05] LABS: GLUCOMETER DEV NAME(LOC) 3E.I; GLUCOSE,POINT OF CARE 122 MG/DL (70-110)
[2019-02-07 16:30] VITALS: BP 120/74
[2019-02-07] MEDS: HALOPERIDOL 10 MG TABLET PO SCH (20:34)
[2019-02-08 06:21] LABS: GLUCOMETER DEV NAME(LOC) 3E.I; GLUCOSE,POINT OF CARE 116 MG/DL (70-110)
[2019-02-08] MEDS: INSULIN LISPRO 100 UNITS/ML SQ PRN (06:44)
[2019-02-08] MEDS: FERROUS SULFATE 325 MG EC TABLET PO SCH ×2 (06:45→17:28)
[2019-02-08] MEDS: LEVOTHYROXINE SODIUM 125 MCG TABLET PO SCH (06:45)
[2019-02-08] MEDS: TOPIRAMATE 100 MG TABLET PO SCH ×3 (08:15→17:26)
[2019-02-08] MEDS: ASCORBIC ACID 500 MG TABLET PO SCH (08:15)
[2019-02-08] MEDS: LevETIRAcetam 250 MG TABLET PO SCH ×2 (08:15→17:26)
[2019-02-08] MEDS: OXYBUTYNIN CHLORIDE 5 MG ER TABLET PO SCH (08:15)
[2019-02-08] MEDS: MULTIVITAMINS WITH MINERALS, THERAPEUTIC TABLET PO SCH (08:16)
[2019-02-08] MEDS: LORATADINE 10 MG TABLET PO SCH (08:16)
[2019-02-08] MEDS: OMEPRAZOLE 20 MG CAPSULE PO SCH (08:16)
[2019-02-08] MEDS: ASPIRIN 81 MG EC TABLET PO SCH (08:17)
[2019-02-08] MEDS: DOCUSATE SODIUM 100 MG CAPSULE PO SCH (08:17)
[2019-02-08] MEDS: DIVALPROEX SODIUM 500 MG DR TABLET PO SCH ×2 (08:18→21:16)
[2019-02-08] MEDS: QUEtiapine FUMARATE 200 MG TABLET PO SCH ×2 (08:18→21:16)
[2019-02-08] MEDS: FLUoxetine HCL 20 MG CAPSULE PO SCH (08:18)
[2019-02-08] MEDS: MAG HYDROX/AL HYDROX/SIMETH ES 30 ML SUSPENSION UDCUP PO PRN ×2 (08:18→08:22)
[2019-02-08] MEDS: HALOPERIDOL 5 MG TABLET PO PRN (08:21)
[2019-02-08] MEDS: CHLORHEXIDINE GLUCONATE 4% 118 ML TOPICAL LIQUID TP SCH (09:39)
[2019-02-08] MEDS: MAGNESIUM OXIDE 400 MG TABLET PO SCH ×2 (09:39→17:28)
[2019-02-08 16:10] LABS: GLUCOMETER DEV NAME(LOC) 3E.I; GLUCOSE,POINT OF CARE 185 MG/DL (70-110)
[2019-02-08] MEDS: HALOPERIDOL 10 MG TABLET PO SCH (21:16)
[2019-02-09] MEDS: LEVOTHYROXINE SODIUM 125 MCG TABLET PO SCH (06:50)
[2019-02-09] MEDS: FERROUS SULFATE 325 MG EC TABLET PO SCH ×2 (06:50→16:24)
[2019-02-09] MEDS: OMEPRAZOLE 20 MG CAPSULE PO SCH (08:25)
[2019-02-09] MEDS: LORATADINE 10 MG TABLET PO SCH (08:25)
[2019-02-09] MEDS: FLUoxetine HCL 20 MG CAPSULE PO SCH (08:25)
[2019-02-09] MEDS: DOCUSATE SODIUM 100 MG CAPSULE PO SCH (08:25)
[2019-02-09] MEDS: HALOPERIDOL 5 MG TABLET PO PRN (08:25)
[2019-02-09] MEDS: ASCORBIC ACID 500 MG TABLET PO SCH (08:25)
[2019-02-09] MEDS: TOPIRAMATE 100 MG TABLET PO SCH ×3 (08:25→16:25)
[2019-02-09] MEDS: QUEtiapine FUMARATE 200 MG TABLET PO SCH ×2 (08:25→20:09)
[2019-02-09] MEDS: ASPIRIN 81 MG EC TABLET PO SCH (08:25)
[2019-02-09] MEDS: MULTIVITAMINS WITH MINERALS, THERAPEUTIC TABLET PO SCH (08:26)
[2019-02-09] MEDS: DIVALPROEX SODIUM 500 MG DR TABLET PO SCH ×2 (08:26→20:09)
[2019-02-09] MEDS: MAGNESIUM OXIDE 400 MG TABLET PO SCH ×2 (08:26→16:24)
[2019-02-09] MEDS: LevETIRAcetam 250 MG TABLET PO SCH ×2 (08:26→16:24)
[2019-02-09] MEDS: OXYBUTYNIN CHLORIDE 5 MG ER TABLET PO SCH (08:26)
[2019-02-09] MEDS: CHLORHEXIDINE GLUCONATE 4% 118 ML TOPICAL LIQUID TP SCH (11:17)
[2019-02-09 15:29] VITALS: BP 146/76
[2019-02-09 17:45] LABS: GLUCOMETER DEV NAME(LOC) 3E.I; GLUCOSE,POINT OF CARE 101 MG/DL (70-110)
[2019-02-09] MEDS: HALOPERIDOL 10 MG TABLET PO SCH (20:09)
[2019-02-09 20:15] VITALS: BP 163/77
[2019-02-10 06:25] LABS: GLUCOMETER DEV NAME(LOC) 3E.I; GLUCOSE,POINT OF CARE 87 MG/DL (70-110)
[2019-02-10] MEDS: INSULIN LISPRO 100 UNITS/ML SQ PRN ×2 (06:36→17:39)
[2019-02-10] MEDS: LEVOTHYROXINE SODIUM 125 MCG TABLET PO SCH (06:51)
[2019-02-10] MEDS: FERROUS SULFATE 325 MG EC TABLET PO SCH ×2 (06:51→17:45)
[2019-02-10 08:00] VITALS: BP 135/78
[2019-02-10] MEDS: HALOPERIDOL 5 MG TABLET PO PRN ×2 (08:03→13:38)
[2019-02-10] MEDS: TOPIRAMATE 100 MG TABLET PO SCH ×3 (08:03→17:45)
[2019-02-10] MEDS: LevETIRAcetam 250 MG TABLET PO SCH ×2 (08:03→17:45)
[2019-02-10] MEDS: QUEtiapine FUMARATE 200 MG TABLET PO SCH ×2 (08:03→20:02)
[2019-02-10] MEDS: DIVALPROEX SODIUM 500 MG DR TABLET PO SCH ×2 (08:03→20:02)
[2019-02-10] MEDS: FLUoxetine HCL 20 MG CAPSULE PO SCH (08:03)
[2019-02-10] MEDS: DOCUSATE SODIUM 100 MG CAPSULE PO SCH (08:04)
[2019-02-10] MEDS: OXYBUTYNIN CHLORIDE 5 MG ER TABLET PO SCH (08:04)
[2019-02-10] MEDS: MULTIVITAMINS WITH MINERALS, THERAPEUTIC TABLET PO SCH (08:04)
[2019-02-10] MEDS: MAGNESIUM OXIDE 400 MG TABLET PO SCH ×2 (08:04→17:45)
[2019-02-10] MEDS: ASCORBIC ACID 500 MG TABLET PO SCH (08:04)
[2019-02-10] MEDS: OMEPRAZOLE 20 MG CAPSULE PO SCH (08:04)
[2019-02-10] MEDS: LORATADINE 10 MG TABLET PO SCH (08:04)
[2019-02-10] MEDS: ASPIRIN 81 MG EC TABLET PO SCH (08:04)
[2019-02-10] MEDS: CHLORHEXIDINE GLUCONATE 4% 118 ML TOPICAL LIQUID TP SCH (10:08)
[2019-02-10 16:40] LABS: GLUCOMETER DEV NAME(LOC) 3E.I; GLUCOSE,POINT OF CARE 170 MG/DL (70-110)
[2019-02-10] MEDS: HALOPERIDOL 10 MG TABLET PO SCH (20:02)
[2019-02-11] MEDS: FERROUS SULFATE 325 MG EC TABLET PO SCH ×2 (07:01→16:36)
[2019-02-11] MEDS: LEVOTHYROXINE SODIUM 125 MCG TABLET PO SCH (07:01)
[2019-02-11] MEDS: DIVALPROEX SODIUM 500 MG DR TABLET PO SCH ×2 (08:58→20:17)
[2019-02-11] MEDS: FLUoxetine HCL 20 MG CAPSULE PO SCH (08:58)
[2019-02-11] MEDS: MULTIVITAMINS WITH MINERALS, THERAPEUTIC TABLET PO SCH (08:58)
[2019-02-11] MEDS: DOCUSATE SODIUM 100 MG CAPSULE PO SCH (08:58)
[2019-02-11] MEDS: OMEPRAZOLE 20 MG CAPSULE PO SCH (08:58)
[2019-02-11] MEDS: OXYBUTYNIN CHLORIDE 5 MG ER TABLET PO SCH (08:58)
[2019-02-11] MEDS: ASPIRIN 81 MG EC TABLET PO SCH (08:58)
[2019-02-11] MEDS: MAGNESIUM OXIDE 400 MG TABLET PO SCH ×2 (08:58→16:35)
[2019-02-11] MEDS: QUEtiapine FUMARATE 200 MG TABLET PO SCH ×2 (08:59→20:17)
[2019-02-11] MEDS: TOPIRAMATE 100 MG TABLET PO SCH ×3 (08:59→16:35)
[2019-02-11] MEDS: LORATADINE 10 MG TABLET PO SCH (08:59)
[2019-02-11] MEDS: ASCORBIC ACID 500 MG TABLET PO SCH (08:59)
[2019-02-11] MEDS: LevETIRAcetam 250 MG TABLET PO SCH ×2 (08:59→16:36)
[2019-02-11] MEDS: CHLORHEXIDINE GLUCONATE 4% 118 ML TOPICAL LIQUID TP SCH (09:00)
[2019-02-11 16:37] VITALS: BP 131/87
[2019-02-11 17:26] LABS: GLUCOMETER DEV NAME(LOC) 3E.I; GLUCOSE,POINT OF CARE 86 MG/DL (70-110)
[2019-02-11] MEDS: HALOPERIDOL 10 MG TABLET PO SCH (20:17)
[2019-02-12 06:21] LABS: GLUCOMETER DEV NAME(LOC) 3E.I; GLUCOSE,POINT OF CARE 88 MG/DL (70-110)
[2019-02-12] MEDS: LEVOTHYROXINE SODIUM 125 MCG TABLET PO SCH (06:49)
[2019-02-12] MEDS: FERROUS SULFATE 325 MG EC TABLET PO SCH ×2 (06:49→17:39)
[2019-02-12 08:45] VITALS: BP 137/84
[2019-02-12] MEDS: QUEtiapine FUMARATE 200 MG TABLET PO SCH ×2 (10:16→20:48)
[2019-02-12] MEDS: DIVALPROEX SODIUM 500 MG DR TABLET PO SCH ×2 (10:17→20:48)
[2019-02-12] MEDS: OMEPRAZOLE 20 MG CAPSULE PO SCH (10:17)
[2019-02-12] MEDS: MAGNESIUM OXIDE 400 MG TABLET PO SCH ×2 (10:17→17:40)
[2019-02-12] MEDS: TOPIRAMATE 100 MG TABLET PO SCH ×3 (10:17→17:39)
[2019-02-12] MEDS: LevETIRAcetam 250 MG TABLET PO SCH ×2 (10:17→17:39)
[2019-02-12] MEDS: HALOPERIDOL 5 MG TABLET PO PRN (10:17)
[2019-02-12] MEDS: ASCORBIC ACID 500 MG TABLET PO SCH (10:17)
[2019-02-12] MEDS: FLUoxetine HCL 20 MG CAPSULE PO SCH (10:17)
[2019-02-12] MEDS: MULTIVITAMINS WITH MINERALS, THERAPEUTIC TABLET PO SCH (10:17)
[2019-02-12] MEDS: DOCUSATE SODIUM 100 MG CAPSULE PO SCH (10:17)
[2019-02-12] MEDS: OXYBUTYNIN CHLORIDE 5 MG ER TABLET PO SCH (10:17)
[2019-02-12] MEDS: LORATADINE 10 MG TABLET PO SCH (10:18)
[2019-02-12] MEDS: ASPIRIN 81 MG EC TABLET PO SCH (10:18)
[2019-02-12] MEDS: CHLORHEXIDINE GLUCONATE 4% 118 ML TOPICAL LIQUID TP SCH (13:31)
[2019-02-12 16:20] VITALS: BP 124/79
[2019-02-12 17:41] LABS: GLUCOMETER DEV NAME(LOC) 3E.I; GLUCOSE,POINT OF CARE 101 MG/DL (70-110)
[2019-02-12] MEDS: HALOPERIDOL 10 MG TABLET PO SCH (20:48)
[2019-02-13 06:21] LABS: GLUCOMETER DEV NAME(LOC) 3E.I; GLUCOSE,POINT OF CARE 96 MG/DL (70-110)
[2019-02-13] MEDS: LEVOTHYROXINE SODIUM 125 MCG TABLET PO SCH (07:08)
[2019-02-13] MEDS: FERROUS SULFATE 325 MG EC TABLET PO SCH ×2 (07:09→18:00)
[2019-02-13] MEDS: MULTIVITAMINS WITH MINERALS, THERAPEUTIC TABLET PO SCH (07:37)
[2019-02-13] MEDS: OMEPRAZOLE 20 MG CAPSULE PO SCH (07:39)
[2019-02-13] MEDS: FLUoxetine HCL 20 MG CAPSULE PO SCH (07:39)
[2019-02-13] MEDS: HALOPERIDOL 5 MG TABLET PO PRN (07:39)
[2019-02-13] MEDS: QUEtiapine FUMARATE 200 MG TABLET PO SCH ×2 (07:39→21:06)
[2019-02-13] MEDS: DIVALPROEX SODIUM 500 MG DR TABLET PO SCH ×2 (07:39→21:05)
[2019-02-13] MEDS: MAGNESIUM OXIDE 400 MG TABLET PO SCH ×2 (07:39→18:00)
[2019-02-13] MEDS: DOCUSATE SODIUM 100 MG CAPSULE PO SCH (07:39)
[2019-02-13] MEDS: LORATADINE 10 MG TABLET PO SCH (07:39)
[2019-02-13] MEDS: CHLORHEXIDINE GLUCONATE 4% 118 ML TOPICAL LIQUID TP SCH (07:40)
[2019-02-13] MEDS: OXYBUTYNIN CHLORIDE 5 MG ER TABLET PO SCH (07:40)
[2019-02-13] MEDS: ASPIRIN 81 MG EC TABLET PO SCH (07:40)
[2019-02-13] MEDS: TOPIRAMATE 100 MG TABLET PO SCH ×3 (07:40→18:00)
[2019-02-13] MEDS: ASCORBIC ACID 500 MG TABLET PO SCH (07:40)
[2019-02-13] MEDS: LevETIRAcetam 250 MG TABLET PO SCH ×2 (07:41→18:00)
[2019-02-13 08:22] VITALS: BP 152/98
[2019-02-13] MEDS: HALOPERIDOL 10 MG TABLET PO SCH (21:06)
[2019-02-14] MEDS: FERROUS SULFATE 325 MG EC TABLET PO SCH ×2 (07:07→16:22)
[2019-02-14] MEDS: LEVOTHYROXINE SODIUM 125 MCG TABLET PO SCH (07:07)
[2019-02-14] MEDS: LevETIRAcetam 250 MG TABLET PO SCH ×2 (08:47→16:21)
[2019-02-14] MEDS: FLUoxetine HCL 20 MG CAPSULE PO SCH (08:47)
[2019-02-14] MEDS: CHLORHEXIDINE GLUCONATE 4% 118 ML TOPICAL LIQUID TP SCH (08:47)
[2019-02-14] MEDS: TOPIRAMATE 100 MG TABLET PO SCH ×3 (08:47→16:21)
[2019-02-14] MEDS: OXYBUTYNIN CHLORIDE 5 MG ER TABLET PO SCH (08:48)
[2019-02-14] MEDS: DIVALPROEX SODIUM 500 MG DR TABLET PO SCH ×2 (08:48→20:36)
[2019-02-14] MEDS: OMEPRAZOLE 20 MG CAPSULE PO SCH (08:48)
[2019-02-14] MEDS: QUEtiapine FUMARATE 200 MG TABLET PO SCH ×2 (08:48→20:36)
[2019-02-14] MEDS: ASPIRIN 81 MG EC TABLET PO SCH (08:48)
[2019-02-14] MEDS: DOCUSATE SODIUM 100 MG CAPSULE PO SCH (08:48)
[2019-02-14] MEDS: MAGNESIUM OXIDE 400 MG TABLET PO SCH ×2 (08:48→16:22)
[2019-02-14] MEDS: MULTIVITAMINS WITH MINERALS, THERAPEUTIC TABLET PO SCH (08:49)
[2019-02-14] MEDS: ASCORBIC ACID 500 MG TABLET PO SCH (08:49)
[2019-02-14] MEDS: HALOPERIDOL 5 MG TABLET PO PRN (08:49)
[2019-02-14] MEDS: LORATADINE 10 MG TABLET PO SCH (08:57)
[2019-02-14 16:15] LABS: GLUCOMETER DEV NAME(LOC) 3E.I; GLUCOSE,POINT OF CARE 96 MG/DL (70-110)
[2019-02-14 16:37] VITALS: BP 116/72
[2019-02-14] MEDS: HALOPERIDOL 10 MG TABLET PO SCH (20:36)
[2019-02-15] MEDS: LEVOTHYROXINE SODIUM 125 MCG TABLET PO SCH (06:37)
[2019-02-15] MEDS: FERROUS SULFATE 325 MG EC TABLET PO SCH ×2 (06:38→17:07)
[2019-02-15] MEDS: HALOPERIDOL 5 MG TABLET PO PRN (11:44)
[2019-02-15] MEDS: DIVALPROEX SODIUM 500 MG DR TABLET PO SCH ×2 (11:44→20:11)
[2019-02-15] MEDS: FLUoxetine HCL 20 MG CAPSULE PO SCH (11:44)
[2019-02-15] MEDS: ASCORBIC ACID 500 MG TABLET PO SCH (11:45)
[2019-02-15] MEDS: OMEPRAZOLE 20 MG CAPSULE PO SCH (11:45)
[2019-02-15] MEDS: QUEtiapine FUMARATE 200 MG TABLET PO SCH ×2 (11:45→20:11)
[2019-02-15] MEDS: TOPIRAMATE 100 MG TABLET PO SCH ×3 (11:45→17:08)
[2019-02-15] MEDS: OXYBUTYNIN CHLORIDE 5 MG ER TABLET PO SCH (11:45)
[2019-02-15] MEDS: LevETIRAcetam 250 MG TABLET PO SCH ×2 (11:45→17:07)
[2019-02-15] MEDS: LORATADINE 10 MG TABLET PO SCH (11:45)
[2019-02-15] MEDS: MAGNESIUM OXIDE 400 MG TABLET PO SCH ×2 (11:45→17:07)
[2019-02-15] MEDS: MULTIVITAMINS WITH MINERALS, THERAPEUTIC TABLET PO SCH (11:45)
[2019-02-15] MEDS: CHLORHEXIDINE GLUCONATE 4% 118 ML TOPICAL LIQUID TP SCH ×2 (11:46→14:42)
[2019-02-15] MEDS: ASPIRIN 81 MG EC TABLET PO SCH (11:46)
[2019-02-15] MEDS: DOCUSATE SODIUM 100 MG CAPSULE PO SCH (11:46)
[2019-02-15 16:08] VITALS: BP 119/78
[2019-02-15 17:35] LABS: GLUCOMETER DEV NAME(LOC) 3E.I; GLUCOSE,POINT OF CARE 162 MG/DL (70-110)
[2019-02-15] MEDS: INSULIN LISPRO 100 UNITS/ML SQ PRN (17:45)
[2019-02-15] MEDS: HALOPERIDOL 10 MG TABLET PO SCH (20:11)
[2019-02-16 05:40] LABS: GLUCOMETER DEV NAME(LOC) 3E.I; GLUCOSE,POINT OF CARE 144 MG/DL (70-110)
[2019-02-16] MEDS: FERROUS SULFATE 325 MG EC TABLET PO SCH ×2 (06:40→17:14)
[2019-02-16] MEDS: LEVOTHYROXINE SODIUM 125 MCG TABLET PO SCH (06:40)
[2019-02-16] MEDS: INSULIN LISPRO 100 UNITS/ML SQ PRN (06:42)
[2019-02-16] MEDS: FLUoxetine HCL 20 MG CAPSULE PO SCH (09:49)
[2019-02-16] MEDS: DIVALPROEX SODIUM 500 MG DR TABLET PO SCH ×2 (09:49→21:56)
[2019-02-16] MEDS: TOPIRAMATE 100 MG TABLET PO SCH ×3 (09:49→17:14)
[2019-02-16] MEDS: QUEtiapine FUMARATE 200 MG TABLET PO SCH ×2 (09:50→21:56)
[2019-02-16] MEDS: LORATADINE 10 MG TABLET PO SCH (09:50)
[2019-02-16] MEDS: HALOPERIDOL 5 MG TABLET PO PRN (09:50)
[2019-02-16] MEDS: ASPIRIN 81 MG EC TABLET PO SCH (09:50)
[2019-02-16] MEDS: ASCORBIC ACID 500 MG TABLET PO SCH (09:50)
[2019-02-16] MEDS: DOCUSATE SODIUM 100 MG CAPSULE PO SCH (09:50)
[2019-02-16] MEDS: OXYBUTYNIN CHLORIDE 5 MG ER TABLET PO SCH (09:50)
[2019-02-16] MEDS: MAGNESIUM OXIDE 400 MG TABLET PO SCH ×2 (09:50→17:14)
[2019-02-16] MEDS: OMEPRAZOLE 20 MG CAPSULE PO SCH (09:50)
[2019-02-16] MEDS: LevETIRAcetam 250 MG TABLET PO SCH ×2 (09:50→17:14)
[2019-02-16] MEDS: MULTIVITAMINS WITH MINERALS, THERAPEUTIC TABLET PO SCH (09:50)
[2019-02-16] MEDS: CHLORHEXIDINE GLUCONATE 4% 118 ML TOPICAL LIQUID TP SCH (11:47)
[2019-02-16 16:14] VITALS: BP 114/74
[2019-02-16 17:06] LABS: GLUCOMETER DEV NAME(LOC) 3E.I; GLUCOSE,POINT OF CARE 100 MG/DL (70-110)
[2019-02-16] MEDS: HALOPERIDOL 10 MG TABLET PO SCH (21:56)
[2019-02-17] MEDS: FERROUS SULFATE 325 MG EC TABLET PO SCH ×2 (06:45→17:07)
[2019-02-17] MEDS: LEVOTHYROXINE SODIUM 125 MCG TABLET PO SCH (06:45)
[2019-02-17 08:00] VITALS: BP 150/84
[2019-02-17] MEDS: HALOPERIDOL 5 MG TABLET PO PRN (08:15)
[2019-02-17] MEDS: CHLORHEXIDINE GLUCONATE 4% 118 ML TOPICAL LIQUID TP SCH (08:15)
[2019-02-17] MEDS: ASPIRIN 81 MG EC TABLET PO SCH (08:16)
[2019-02-17] MEDS: MAGNESIUM OXIDE 400 MG TABLET PO SCH ×2 (08:16→17:07)
[2019-02-17] MEDS: DIVALPROEX SODIUM 500 MG DR TABLET PO SCH ×2 (08:16→21:25)
[2019-02-17] MEDS: QUEtiapine FUMARATE 200 MG TABLET PO SCH ×2 (08:16→21:25)
[2019-02-17] MEDS: LORATADINE 10 MG TABLET PO SCH (08:16)
[2019-02-17] MEDS: LevETIRAcetam 250 MG TABLET PO SCH ×2 (08:16→17:05)
[2019-02-17] MEDS: ASCORBIC ACID 500 MG TABLET PO SCH (08:16)
[2019-02-17] MEDS: FLUoxetine HCL 20 MG CAPSULE PO SCH (08:16)
[2019-02-17] MEDS: TOPIRAMATE 100 MG TABLET PO SCH ×3 (08:16→17:05)
[2019-02-17] MEDS: OXYBUTYNIN CHLORIDE 5 MG ER TABLET PO SCH (08:16)
[2019-02-17] MEDS: OMEPRAZOLE 20 MG CAPSULE PO SCH (08:16)
[2019-02-17] MEDS: MULTIVITAMINS WITH MINERALS, THERAPEUTIC TABLET PO SCH (08:17)
[2019-02-17] MEDS: DOCUSATE SODIUM 100 MG CAPSULE PO SCH (08:18)
[2019-02-17 16:10] VITALS: BP 119/72
[2019-02-17 16:46] LABS: GLUCOMETER DEV NAME(LOC) 3E.I; GLUCOSE,POINT OF CARE 92 MG/DL (70-110)
[2019-02-17] MEDS: HALOPERIDOL 10 MG TABLET PO SCH (21:25)
[2019-02-18] MEDS: HALOPERIDOL 5 MG TABLET PO PRN (04:44)
[2019-02-18] MEDS: FERROUS SULFATE 325 MG EC TABLET PO SCH ×2 (06:49→17:38)
[2019-02-18] MEDS: LEVOTHYROXINE SODIUM 125 MCG TABLET PO SCH (06:49)
[2019-02-18 08:00] VITALS: BP 133/65
[2019-02-18] MEDS: DOCUSATE SODIUM 100 MG CAPSULE PO SCH (09:03)
[2019-02-18] MEDS: DIVALPROEX SODIUM 500 MG DR TABLET PO SCH ×2 (09:03→21:05)
[2019-02-18] MEDS: LORATADINE 10 MG TABLET PO SCH (09:03)
[2019-02-18] MEDS: FLUoxetine HCL 20 MG CAPSULE PO SCH (09:03)
[2019-02-18] MEDS: ASPIRIN 81 MG EC TABLET PO SCH (09:04)
[2019-02-18] MEDS: MAGNESIUM OXIDE 400 MG TABLET PO SCH ×2 (09:04→16:38)
[2019-02-18] MEDS: OMEPRAZOLE 20 MG CAPSULE PO SCH (09:04)
[2019-02-18] MEDS: MULTIVITAMINS WITH MINERALS, THERAPEUTIC TABLET PO SCH (09:04)
[2019-02-18] MEDS: QUEtiapine FUMARATE 200 MG TABLET PO SCH ×2 (09:04→21:04)
[2019-02-18] MEDS: LevETIRAcetam 250 MG TABLET PO SCH ×2 (09:05→16:36)
[2019-02-18] MEDS: TOPIRAMATE 100 MG TABLET PO SCH ×3 (09:05→16:36)
[2019-02-18] MEDS: OXYBUTYNIN CHLORIDE 5 MG ER TABLET PO SCH (09:05)
[2019-02-18] MEDS: ASCORBIC ACID 500 MG TABLET PO SCH (09:05)
[2019-02-18] MEDS: CHLORHEXIDINE GLUCONATE 4% 118 ML TOPICAL LIQUID TP SCH (09:06)
[2019-02-18 10:35] LABS: GLUCOMETER DEV NAME(LOC) 3E.C; GLUCOSE,POINT OF CARE 137 MG/DL (70-110)
[2019-02-18 15:45] LABS: GLUCOMETER DEV NAME(LOC) 3E.I; GLUCOSE,POINT OF CARE 109 MG/DL (70-110)
[2019-02-18 16:35] LABS: GLUCOMETER DEV NAME(LOC) 3E.I; GLUCOSE,POINT OF CARE 143 MG/DL (70-110)
[2019-02-18] MEDS: INSULIN LISPRO 100 UNITS/ML SQ PRN (17:25)
[2019-02-18] MEDS: HALOPERIDOL 10 MG TABLET PO SCH (21:04)
[2019-02-19] MEDS: FERROUS SULFATE 325 MG EC TABLET PO SCH ×2 (06:51→17:33)
[2019-02-19] MEDS: INSULIN LISPRO 100 UNITS/ML SQ PRN ×2 (06:51→17:33)
[2019-02-19] MEDS: LEVOTHYROXINE SODIUM 125 MCG TABLET PO SCH (06:51)
[2019-02-19] MEDS: FLUoxetine HCL 20 MG CAPSULE PO SCH (08:48)
[2019-02-19] MEDS: CHLORHEXIDINE GLUCONATE 4% 118 ML TOPICAL LIQUID TP SCH (08:48)
[2019-02-19] MEDS: MULTIVITAMINS WITH MINERALS, THERAPEUTIC TABLET PO SCH (08:49)
[2019-02-19] MEDS: DIVALPROEX SODIUM 500 MG DR TABLET PO SCH ×2 (08:49→20:19)
[2019-02-19] MEDS: LORATADINE 10 MG TABLET PO SCH (08:50)
[2019-02-19] MEDS: DOCUSATE SODIUM 100 MG CAPSULE PO SCH (08:50)
[2019-02-19] MEDS: QUEtiapine FUMARATE 200 MG TABLET PO SCH ×2 (08:50→20:19)
[2019-02-19] MEDS: ASPIRIN 81 MG EC TABLET PO SCH (08:51)
[2019-02-19] MEDS: LevETIRAcetam 250 MG TABLET PO SCH ×2 (08:51→17:33)
[2019-02-19] MEDS: MAGNESIUM OXIDE 400 MG TABLET PO SCH ×2 (08:51→17:33)
[2019-02-19] MEDS: OXYBUTYNIN CHLORIDE 5 MG ER TABLET PO SCH (08:51)
[2019-02-19] MEDS: OMEPRAZOLE 20 MG CAPSULE PO SCH (08:51)
[2019-02-19] MEDS: TOPIRAMATE 100 MG TABLET PO SCH ×3 (08:51→17:33)
[2019-02-19 09:40] LABS: GLUCOMETER DEV NAME(LOC) 3E.I; GLUCOSE,POINT OF CARE 97 MG/DL (70-110)
[2019-02-19] MEDS: ASCORBIC ACID 500 MG TABLET PO SCH (09:51)
[2019-02-19] MEDS: HALOPERIDOL 10 MG TABLET PO SCH (20:20)
[2019-02-20] MEDS: FERROUS SULFATE 325 MG EC TABLET PO SCH ×2 (06:56→18:30)
[2019-02-20] MEDS: LEVOTHYROXINE SODIUM 125 MCG TABLET PO SCH (06:56)
[2019-02-20] MEDS: FLUoxetine HCL 20 MG CAPSULE PO SCH (09:46)
[2019-02-20] MEDS: OMEPRAZOLE 20 MG CAPSULE PO SCH (09:46)
[2019-02-20] MEDS: QUEtiapine FUMARATE 200 MG TABLET PO SCH ×2 (09:46→21:27)
[2019-02-20] MEDS: OXYBUTYNIN CHLORIDE 5 MG ER TABLET PO SCH (09:46)
[2019-02-20] MEDS: DOCUSATE SODIUM 100 MG CAPSULE PO SCH (09:47)
[2019-02-20] MEDS: ASCORBIC ACID 500 MG TABLET PO SCH (09:47)
[2019-02-20] MEDS: MAGNESIUM OXIDE 400 MG TABLET PO SCH ×2 (09:47→18:00)
[2019-02-20] MEDS: ASPIRIN 81 MG EC TABLET PO SCH (09:47)
[2019-02-20] MEDS: MULTIVITAMINS WITH MINERALS, THERAPEUTIC TABLET PO SCH (09:47)
[2019-02-20] MEDS: TOPIRAMATE 100 MG TABLET PO SCH ×3 (09:48→18:00)
[2019-02-20] MEDS: DIVALPROEX SODIUM 500 MG DR TABLET PO SCH ×2 (09:48→21:27)
[2019-02-20] MEDS: LORATADINE 10 MG TABLET PO SCH (09:48)
[2019-02-20] MEDS: CHLORHEXIDINE GLUCONATE 4% 118 ML TOPICAL LIQUID TP SCH (09:49)
[2019-02-20] MEDS: LevETIRAcetam 250 MG TABLET PO SCH ×2 (09:49→18:00)
[2019-02-20 12:07] LABS: GLUCOMETER DEV NAME(LOC) 3E.I; GLUCOSE,POINT OF CARE 111 MG/DL (70-110)
[2019-02-20 12:40] LABS: GLUCOMETER DEV NAME(LOC) 3E.I; GLUCOSE,POINT OF CARE 75 MG/DL (70-110)
[2019-02-20 16:03] VITALS: BP 129/81
[2019-02-20 17:16] LABS: GLUCOMETER DEV NAME(LOC) 3E.I; GLUCOSE,POINT OF CARE 103 MG/DL (70-110)
[2019-02-20] MEDS: HALOPERIDOL 10 MG TABLET PO SCH (21:27)
[2019-02-21 06:36] LABS: GLUCOMETER DEV NAME(LOC) 3E.I; GLUCOSE,POINT OF CARE 65 MG/DL (70-110)
[2019-02-21 06:37] LABS: GLUCOMETER DEV NAME(LOC) 3E.I; GLUCOSE,POINT OF CARE 86 MG/DL (70-110)
[2019-02-21] MEDS: FERROUS SULFATE 325 MG EC TABLET PO SCH ×2 (06:44→16:55)
[2019-02-21] MEDS: LEVOTHYROXINE SODIUM 125 MCG TABLET PO SCH (06:44)
[2019-02-21 08:00] VITALS: BP 146/87
[2019-02-21] MEDS: LORATADINE 10 MG TABLET PO SCH (08:19)
[2019-02-21] MEDS: DOCUSATE SODIUM 100 MG CAPSULE PO SCH (08:20)
[2019-02-21] MEDS: MAGNESIUM OXIDE 400 MG TABLET PO SCH ×2 (08:20→16:55)
[2019-02-21] MEDS: OMEPRAZOLE 20 MG CAPSULE PO SCH (08:20)
[2019-02-21] MEDS: MULTIVITAMINS WITH MINERALS, THERAPEUTIC TABLET PO SCH (08:20)
[2019-02-21] MEDS: DIVALPROEX SODIUM 500 MG DR TABLET PO SCH ×2 (08:20→21:09)
[2019-02-21] MEDS: ASPIRIN 81 MG EC TABLET PO SCH (08:20)
[2019-02-21] MEDS: QUEtiapine FUMARATE 200 MG TABLET PO SCH ×2 (08:21→21:09)
[2019-02-21] MEDS: OXYBUTYNIN CHLORIDE 5 MG ER TABLET PO SCH (08:21)
[2019-02-21] MEDS: TOPIRAMATE 100 MG TABLET PO SCH ×3 (08:21→16:55)
[2019-02-21] MEDS: FLUoxetine HCL 20 MG CAPSULE PO SCH (08:21)
[2019-02-21] MEDS: ASCORBIC ACID 500 MG TABLET PO SCH (08:21)
[2019-02-21] MEDS: LevETIRAcetam 250 MG TABLET PO SCH ×2 (08:22→16:55)
[2019-02-21] MEDS: CHLORHEXIDINE GLUCONATE 4% 118 ML TOPICAL LIQUID TP SCH (09:00)
[2019-02-21 16:21] VITALS: BP 128/77
[2019-02-21 16:46] LABS: GLUCOMETER DEV NAME(LOC) 3E.I; GLUCOSE,POINT OF CARE 83 MG/DL (70-110)
[2019-02-21] MEDS: HALOPERIDOL 10 MG TABLET PO SCH (21:09)
[2019-02-22 06:16] LABS: GLUCOMETER DEV NAME(LOC) 3E.I; GLUCOSE,POINT OF CARE 71 MG/DL (70-110)
[2019-02-22] MEDS: FERROUS SULFATE 325 MG EC TABLET PO SCH ×2 (06:47→17:36)
[2019-02-22] MEDS: LEVOTHYROXINE SODIUM 125 MCG TABLET PO SCH (06:47)
[2019-02-22 08:00] VITALS: BP 120/87
[2019-02-22] MEDS: FLUoxetine HCL 20 MG CAPSULE PO SCH (08:00)
[2019-02-22] MEDS: DOCUSATE SODIUM 100 MG CAPSULE PO SCH (08:00)
[2019-02-22] MEDS: QUEtiapine FUMARATE 200 MG TABLET PO SCH ×2 (08:00→20:06)
[2019-02-22] MEDS: DIVALPROEX SODIUM 500 MG DR TABLET PO SCH ×2 (08:00→20:06)
[2019-02-22] MEDS: LevETIRAcetam 250 MG TABLET PO SCH ×2 (08:01→17:35)
[2019-02-22] MEDS: ASPIRIN 81 MG EC TABLET PO SCH (08:01)
[2019-02-22] MEDS: LORATADINE 10 MG TABLET PO SCH (08:01)
[2019-02-22] MEDS: TOPIRAMATE 100 MG TABLET PO SCH ×3 (08:01→17:36)
[2019-02-22] MEDS: OXYBUTYNIN CHLORIDE 5 MG ER TABLET PO SCH (08:01)
[2019-02-22] MEDS: MAGNESIUM OXIDE 400 MG TABLET PO SCH ×2 (08:01→17:36)
[2019-02-22] MEDS: MULTIVITAMINS WITH MINERALS, THERAPEUTIC TABLET PO SCH (08:01)
[2019-02-22] MEDS: ASCORBIC ACID 500 MG TABLET PO SCH (08:01)
[2019-02-22] MEDS: OMEPRAZOLE 20 MG CAPSULE PO SCH (08:01)
[2019-02-22] MEDS: CHLORHEXIDINE GLUCONATE 4% 118 ML TOPICAL LIQUID TP SCH (08:02)
[2019-02-22 16:01] VITALS: BP 138/82
[2019-02-22 16:11] LABS: GLUCOMETER DEV NAME(LOC) 3E.I; GLUCOSE,POINT OF CARE 112 MG/DL (70-110)
[2019-02-22] MEDS: HALOPERIDOL 10 MG TABLET PO SCH (20:06)
[2019-02-23] MEDS: LEVOTHYROXINE SODIUM 125 MCG TABLET PO SCH (06:46)
[2019-02-23] MEDS: FERROUS SULFATE 325 MG EC TABLET PO SCH ×2 (06:46→17:16)
[2019-02-23] MEDS: DIVALPROEX SODIUM 500 MG DR TABLET PO SCH ×2 (08:01→21:45)
[2019-02-23] MEDS: DOCUSATE SODIUM 100 MG CAPSULE PO SCH (08:01)
[2019-02-23] MEDS: MULTIVITAMINS WITH MINERALS, THERAPEUTIC TABLET PO SCH (08:01)
[2019-02-23] MEDS: OMEPRAZOLE 20 MG CAPSULE PO SCH (08:02)
[2019-02-23] MEDS: FLUoxetine HCL 20 MG CAPSULE PO SCH (08:02)
[2019-02-23] MEDS: MAGNESIUM OXIDE 400 MG TABLET PO SCH ×2 (08:02→17:16)
[2019-02-23] MEDS: LORATADINE 10 MG TABLET PO SCH (08:02)
[2019-02-23] MEDS: QUEtiapine FUMARATE 200 MG TABLET PO SCH ×2 (08:02→21:45)
[2019-02-23] MEDS: OXYBUTYNIN CHLORIDE 5 MG ER TABLET PO SCH (08:03)
[2019-02-23] MEDS: LevETIRAcetam 250 MG TABLET PO SCH ×2 (08:03→17:16)
[2019-02-23] MEDS: TOPIRAMATE 100 MG TABLET PO SCH ×3 (08:03→17:16)
[2019-02-23] MEDS: ASCORBIC ACID 500 MG TABLET PO SCH (08:03)
[2019-02-23] MEDS: ASPIRIN 81 MG EC TABLET PO SCH (08:03)
[2019-02-23] MEDS: CHLORHEXIDINE GLUCONATE 4% 118 ML TOPICAL LIQUID TP SCH (08:03)
[2019-02-23 16:12] VITALS: BP 132/76
[2019-02-23 17:22] LABS: GLUCOMETER DEV NAME(LOC) 3E.I; GLUCOSE,POINT OF CARE 101 MG/DL (70-110)
[2019-02-23] MEDS: HALOPERIDOL 10 MG TABLET PO SCH (21:45)
[2019-02-24 06:32] LABS: GLUCOMETER DEV NAME(LOC) 3E.I; GLUCOSE,POINT OF CARE 111 MG/DL (70-110)
[2019-02-24 06:32] LABS: GLUCOMETER DEV NAME(LOC) 3E.I; GLUCOSE,POINT OF CARE 68 MG/DL (70-110)
[2019-02-24] MEDS: FERROUS SULFATE 325 MG EC TABLET PO SCH ×2 (06:50→17:51)
[2019-02-24] MEDS: LEVOTHYROXINE SODIUM 125 MCG TABLET PO SCH (06:51)
[2019-02-24] MEDS: FLUoxetine HCL 20 MG CAPSULE PO SCH (08:21)
[2019-02-24] MEDS: DIVALPROEX SODIUM 500 MG DR TABLET PO SCH ×2 (08:22→20:55)
[2019-02-24] MEDS: QUEtiapine FUMARATE 200 MG TABLET PO SCH ×2 (08:22→20:55)
[2019-02-24] MEDS: MULTIVITAMINS WITH MINERALS, THERAPEUTIC TABLET PO SCH (08:22)
[2019-02-24] MEDS: MAGNESIUM OXIDE 400 MG TABLET PO SCH ×2 (08:22→16:40)
[2019-02-24] MEDS: LORATADINE 10 MG TABLET PO SCH (08:22)
[2019-02-24] MEDS: ASPIRIN 81 MG EC TABLET PO SCH (08:22)
[2019-02-24] MEDS: TOPIRAMATE 100 MG TABLET PO SCH ×3 (08:23→16:39)
[2019-02-24] MEDS: ASCORBIC ACID 500 MG TABLET PO SCH (08:23)
[2019-02-24] MEDS: LevETIRAcetam 250 MG TABLET PO SCH ×2 (08:23→16:39)
[2019-02-24] MEDS: OXYBUTYNIN CHLORIDE 5 MG ER TABLET PO SCH (08:23)
[2019-02-24] MEDS: CHLORHEXIDINE GLUCONATE 4% 118 ML TOPICAL LIQUID TP SCH (08:23)
[2019-02-24] MEDS: DOCUSATE SODIUM 100 MG CAPSULE PO SCH (08:25)
[2019-02-24] MEDS: OMEPRAZOLE 20 MG CAPSULE PO SCH (08:25)
[2019-02-24 10:28] VITALS: BP 122/72
[2019-02-24 16:11] VITALS: BP 128/81
[2019-02-24 17:30] LABS: GLUCOMETER DEV NAME(LOC) 3E.I; GLUCOSE,POINT OF CARE 113 MG/DL (70-110)
[2019-02-24] MEDS: HALOPERIDOL 10 MG TABLET PO SCH (20:55)
[2019-02-25 05:41] LABS: GLUCOMETER DEV NAME(LOC) 3E.I; GLUCOSE,POINT OF CARE 93 MG/DL (70-110)
[2019-02-25] MEDS: LEVOTHYROXINE SODIUM 125 MCG TABLET PO SCH (06:40)
[2019-02-25] MEDS: INSULIN LISPRO 100 UNITS/ML SQ PRN (06:41)
[2019-02-25] MEDS: FERROUS SULFATE 325 MG EC TABLET PO SCH ×2 (06:41→17:14)
[2019-02-25] MEDS: LORATADINE 10 MG TABLET PO SCH (08:38)
[2019-02-25] MEDS: ASCORBIC ACID 500 MG TABLET PO SCH (08:38)
[2019-02-25] MEDS: DOCUSATE SODIUM 100 MG CAPSULE PO SCH (08:38)
[2019-02-25] MEDS: LevETIRAcetam 250 MG TABLET PO SCH ×2 (08:38→17:14)
[2019-02-25] MEDS: ASPIRIN 81 MG EC TABLET PO SCH (08:38)
[2019-02-25] MEDS: DIVALPROEX SODIUM 500 MG DR TABLET PO SCH ×2 (08:38→20:25)
[2019-02-25] MEDS: FLUoxetine HCL 20 MG CAPSULE PO SCH (08:38)
[2019-02-25] MEDS: HALOPERIDOL 5 MG TABLET PO PRN (08:38)
[2019-02-25] MEDS: OMEPRAZOLE 20 MG CAPSULE PO SCH (08:38)
[2019-02-25] MEDS: OXYBUTYNIN CHLORIDE 5 MG ER TABLET PO SCH (08:38)
[2019-02-25] MEDS: MULTIVITAMINS WITH MINERALS, THERAPEUTIC TABLET PO SCH (08:39)
[2019-02-25] MEDS: TOPIRAMATE 100 MG TABLET PO SCH ×3 (08:39→17:14)
[2019-02-25] MEDS: MAGNESIUM OXIDE 400 MG TABLET PO SCH ×2 (08:39→17:14)
[2019-02-25] MEDS: QUEtiapine FUMARATE 200 MG TABLET PO SCH ×2 (08:39→20:25)
[2019-02-25 12:15] LABS: BASOPHILS % (AUTO) 0.1 % (0.0-2.0); EOSINOPHILS % (AUTO) 0.5 % (1.0-6.0); HEMATOCRIT 40.3 % (36-46); HEMOGLOBIN 13.2 g/dL (12.0-16.0); LYMPHOCYTES # (AUTO) 3.5 K/uL (1.0-4.8); LYMPHOCYTES % (AUTO) 44.1 % (22.0-44.0); MEAN CORPUSCULAR HEMOGLOBIN 33.2 pg (26.0-34.0); MEAN CORPUSCULAR HGB CONC 32.7 G/dL (31.0-37.0); MEAN CORPUSCULAR VOLUME 102 fL (80-100); MONOCYTES # (AUTO) 0.7 K/uL (0.1-1.0); MONOCYTES % (AUTO) 9.4 % (2.0-9.0); NEUTROPHILS # (AUTO) 3.7 K/uL (1.8-7.7); NEUTROPHILS % (AUTO) 45.9 % (40.0-70.0); PLATELET COUNT (AUTO) 155 K/uL (150-450); RED BLOOD CELL COUNT(AUTO) 3.97 MIL/uL (4.00-5.20); RED CELL DISTRIBUTION WIDTH 13.4 % (11.5-14.5)
[2019-02-25] MEDS: CHLORHEXIDINE GLUCONATE 4% 118 ML TOPICAL LIQUID TP SCH (12:22)
[2019-02-25 12:29] LABS: ALANINE AMINOTRANSFERASE 74 U/L (12-78); ALBUMIN 2.7 g/dL (3.4-5.0); ALKALINE PHOSPHATASE 81 U/L (46-116); ANION GAP 7 mmol/L (8-16); ASPARTATE AMINOTRANSFERASE 36 U/L (15-37); BILIRUBIN,TOTAL 0.2 mg/dL (0.1-1.0); CALCIUM, TOTAL 9.4 mg/dL (8.8-10.5); CARBON DIOXIDE 26 mmol/L (22-29); CHLORIDE 105 mmol/L (98-107); CHOL/HDL RATIO 3.8 (3.9-5.7); CHOLESTEROL 189 mg/dL (131-200); CREATININE 0.63 mg/dL (0.60-1.30); GLOMERULAR FILTR. RATE CALC > 60 mL/min (>60); GLUCOSE,RANDOM 110 mg/dL (70-110); HDL CHOLESTEROL 50 mg/dL (40-60); LDL CHOL (CALC.) 114 mg/dL (0-130); PHOSPHORUS 4.1 mg/dL (2.5-4.9); POTASSIUM 4.3 mmol/L (3.5-5.1); SODIUM SERUM 138 mmol/L (136-145); THYROID STIMULATING HORMONE 1.15 uIU/mL (0.36-3.74); TOTAL PROTEIN, SERUM 6.7 g/dL (6.4-8.2); TRIGLYCERIDES 127 mg/dL (15-150)
[2019-02-25 12:48] LABS: UREA NITROGEN, BLOOD 19 mg/dL (7-18)
[2019-02-25 16:07] VITALS: BP 129/81
[2019-02-25 18:26] LABS: GLUCOMETER DEV NAME(LOC) 3E.I; GLUCOSE,POINT OF CARE 115 MG/DL (70-110)
[2019-02-25] MEDS: HALOPERIDOL 10 MG TABLET PO SCH (20:25)
[2019-02-26] MEDS: LEVOTHYROXINE SODIUM 125 MCG TABLET PO SCH (07:00)
[2019-02-26] MEDS: FERROUS SULFATE 325 MG EC TABLET PO SCH ×2 (07:01→17:20)
[2019-02-26] MEDS: DIVALPROEX SODIUM 500 MG DR TABLET PO SCH ×2 (08:56→20:16)
[2019-02-26] MEDS: HALOPERIDOL 5 MG TABLET PO PRN (08:56)
[2019-02-26] MEDS: FLUoxetine HCL 20 MG CAPSULE PO SCH (08:56)
[2019-02-26] MEDS: MULTIVITAMINS WITH MINERALS, THERAPEUTIC TABLET PO SCH (08:56)
[2019-02-26] MEDS: OMEPRAZOLE 20 MG CAPSULE PO SCH (08:57)
[2019-02-26] MEDS: ASPIRIN 81 MG EC TABLET PO SCH (08:57)
[2019-02-26] MEDS: QUEtiapine FUMARATE 200 MG TABLET PO SCH ×2 (08:57→20:17)
[2019-02-26] MEDS: LevETIRAcetam 250 MG TABLET PO SCH ×2 (08:57→17:20)
[2019-02-26] MEDS: LORATADINE 10 MG TABLET PO SCH (08:58)
[2019-02-26] MEDS: DOCUSATE SODIUM 100 MG CAPSULE PO SCH (08:58)
[2019-02-26] MEDS: TOPIRAMATE 100 MG TABLET PO SCH ×3 (08:58→17:20)
[2019-02-26] MEDS: OXYBUTYNIN CHLORIDE 5 MG ER TABLET PO SCH (08:58)
[2019-02-26] MEDS: ASCORBIC ACID 500 MG TABLET PO SCH (08:58)
[2019-02-26] MEDS: MAGNESIUM OXIDE 400 MG TABLET PO SCH ×2 (08:59→17:20)
[2019-02-26] MEDS: CHLORHEXIDINE GLUCONATE 4% 118 ML TOPICAL LIQUID TP SCH (08:59)
[2019-02-26 16:28] VITALS: BP 115/83
[2019-02-26 16:47] LABS: GLUCOMETER DEV NAME(LOC) 3E.I; GLUCOSE,POINT OF CARE 98 MG/DL (70-110)
[2019-02-26] MEDS: HALOPERIDOL 10 MG TABLET PO SCH (20:17)
[2019-02-27] MEDS: INSULIN LISPRO 100 UNITS/ML SQ PRN (06:40)
[2019-02-27] MEDS: LEVOTHYROXINE SODIUM 125 MCG TABLET PO SCH (06:50)
[2019-02-27] MEDS: FERROUS SULFATE 325 MG EC TABLET PO SCH ×2 (06:50→17:30)
[2019-02-27] MEDS: QUEtiapine FUMARATE 200 MG TABLET PO SCH ×2 (07:51→20:06)
[2019-02-27] MEDS: MULTIVITAMINS WITH MINERALS, THERAPEUTIC TABLET PO SCH (07:51)
[2019-02-27] MEDS: DOCUSATE SODIUM 100 MG CAPSULE PO SCH (07:52)
[2019-02-27] MEDS: ASPIRIN 81 MG EC TABLET PO SCH (07:52)
[2019-02-27] MEDS: FLUoxetine HCL 20 MG CAPSULE PO SCH (07:52)
[2019-02-27] MEDS: MAGNESIUM OXIDE 400 MG TABLET PO SCH ×2 (07:52→17:30)
[2019-02-27] MEDS: OMEPRAZOLE 20 MG CAPSULE PO SCH (07:52)
[2019-02-27] MEDS: LORATADINE 10 MG TABLET PO SCH (07:52)
[2019-02-27] MEDS: OXYBUTYNIN CHLORIDE 5 MG ER TABLET PO SCH (07:52)
[2019-02-27] MEDS: DIVALPROEX SODIUM 500 MG DR TABLET PO SCH ×2 (07:52→20:05)
[2019-02-27] MEDS: CHLORHEXIDINE GLUCONATE 4% 118 ML TOPICAL LIQUID TP SCH (07:52)
[2019-02-27] MEDS: TOPIRAMATE 100 MG TABLET PO SCH ×3 (07:52→17:30)
[2019-02-27] MEDS: LevETIRAcetam 250 MG TABLET PO SCH ×2 (07:52→17:30)
[2019-02-27] MEDS: ASCORBIC ACID 500 MG TABLET PO SCH (07:53)
[2019-02-27] MEDS: HALOPERIDOL 5 MG TABLET PO PRN (07:54)
[2019-02-27 10:45] VITALS: BP 137/104
[2019-02-27 16:58] LABS: GLUCOMETER DEV NAME(LOC) 3E.I; GLUCOSE,POINT OF CARE 81 MG/DL (70-110)
[2019-02-27 16:58] LABS: GLUCOMETER DEV NAME(LOC) 3E.I; GLUCOSE,POINT OF CARE 114 MG/DL (70-110)
[2019-02-27 18:03] VITALS: BP 119/78
[2019-02-27] MEDS: HALOPERIDOL 10 MG TABLET PO SCH (20:05)
[2019-02-28] MEDS: FERROUS SULFATE 325 MG EC TABLET PO SCH ×2 (06:45→17:20)
[2019-02-28] MEDS: LEVOTHYROXINE SODIUM 125 MCG TABLET PO SCH (06:45)
[2019-02-28] MEDS: LORATADINE 10 MG TABLET PO SCH (07:54)
[2019-02-28] MEDS: LevETIRAcetam 250 MG TABLET PO SCH ×2 (07:55→17:20)
[2019-02-28] MEDS: DIVALPROEX SODIUM 500 MG DR TABLET PO SCH ×2 (07:56→20:27)
[2019-02-28] MEDS: FLUoxetine HCL 20 MG CAPSULE PO SCH (07:56)
[2019-02-28] MEDS: ASPIRIN 81 MG EC TABLET PO SCH (07:56)
[2019-02-28] MEDS: MAGNESIUM OXIDE 400 MG TABLET PO SCH ×2 (07:57→17:20)
[2019-02-28] MEDS: ASCORBIC ACID 500 MG TABLET PO SCH (07:57)
[2019-02-28] MEDS: MULTIVITAMINS WITH MINERALS, THERAPEUTIC TABLET PO SCH (07:57)
[2019-02-28] MEDS: OXYBUTYNIN CHLORIDE 5 MG ER TABLET PO SCH (07:57)
[2019-02-28] MEDS: HALOPERIDOL 5 MG TABLET PO PRN ×2 (07:57→12:21)
[2019-02-28] MEDS: TOPIRAMATE 100 MG TABLET PO SCH ×3 (07:57→17:20)
[2019-02-28] MEDS: OMEPRAZOLE 20 MG CAPSULE PO SCH (07:57)
[2019-02-28] MEDS: QUEtiapine FUMARATE 200 MG TABLET PO SCH ×2 (07:58→20:26)
[2019-02-28] MEDS: DOCUSATE SODIUM 100 MG CAPSULE PO SCH (07:58)
[2019-02-28] MEDS: CHLORHEXIDINE GLUCONATE 4% 118 ML TOPICAL LIQUID TP SCH (11:01)
[2019-02-28 16:01] VITALS: BP 124/82
[2019-02-28 16:16] LABS: GLUCOMETER DEV NAME(LOC) 3E.I; GLUCOSE,POINT OF CARE 129 MG/DL (70-110)
[2019-02-28] MEDS: HALOPERIDOL 10 MG TABLET PO SCH (20:26)
[2019-03-01 06:26] LABS: GLUCOMETER DEV NAME(LOC) 3E.I; GLUCOSE,POINT OF CARE 74 MG/DL (70-110)
[2019-03-01] MEDS: FERROUS SULFATE 325 MG EC TABLET PO SCH ×2 (06:41→16:32)
[2019-03-01] MEDS: LEVOTHYROXINE SODIUM 125 MCG TABLET PO SCH (06:42)
[2019-03-01] MEDS: LORATADINE 10 MG TABLET PO SCH (08:01)
[2019-03-01] MEDS: ASPIRIN 81 MG EC TABLET PO SCH (08:01)
[2019-03-01] MEDS: OXYBUTYNIN CHLORIDE 5 MG ER TABLET PO SCH (08:01)
[2019-03-01] MEDS: DIVALPROEX SODIUM 500 MG DR TABLET PO SCH ×2 (08:01→20:02)
[2019-03-01] MEDS: DOCUSATE SODIUM 100 MG CAPSULE PO SCH (08:01)
[2019-03-01] MEDS: MULTIVITAMINS WITH MINERALS, THERAPEUTIC TABLET PO SCH (08:02)
[2019-03-01] MEDS: QUEtiapine FUMARATE 200 MG TABLET PO SCH ×2 (08:02→20:01)
[2019-03-01] MEDS: OMEPRAZOLE 20 MG CAPSULE PO SCH (08:02)
[2019-03-01] MEDS: MAGNESIUM OXIDE 400 MG TABLET PO SCH ×2 (08:02→16:33)
[2019-03-01] MEDS: LevETIRAcetam 250 MG TABLET PO SCH ×2 (08:02→16:27)
[2019-03-01] MEDS: FLUoxetine HCL 20 MG CAPSULE PO SCH (08:02)
[2019-03-01] MEDS: TOPIRAMATE 100 MG TABLET PO SCH ×3 (08:03→16:27)
[2019-03-01] MEDS: ASCORBIC ACID 500 MG TABLET PO SCH (08:03)
[2019-03-01] MEDS: CHLORHEXIDINE GLUCONATE 4% 118 ML TOPICAL LIQUID TP SCH (08:03)
[2019-03-01] MEDS: HALOPERIDOL 5 MG TABLET PO PRN (08:08)
[2019-03-01 16:25] VITALS: BP 126/77
[2019-03-01 17:46] LABS: GLUCOMETER DEV NAME(LOC) 3E.I; GLUCOSE,POINT OF CARE 105 MG/DL (70-110)
[2019-03-01] MEDS: HALOPERIDOL 10 MG TABLET PO SCH (20:02)
[2019-03-02 00:43] VITALS: BP 92/63
[2019-03-02] MEDS: FERROUS SULFATE 325 MG EC TABLET PO SCH ×2 (06:39→17:11)
[2019-03-02] MEDS: LEVOTHYROXINE SODIUM 125 MCG TABLET PO SCH (06:39)
[2019-03-02] MEDS: ASCORBIC ACID 500 MG TABLET PO SCH (07:54)
[2019-03-02] MEDS: DOCUSATE SODIUM 100 MG CAPSULE PO SCH (07:54)
[2019-03-02] MEDS: LORATADINE 10 MG TABLET PO SCH (07:54)
[2019-03-02] MEDS: OMEPRAZOLE 20 MG CAPSULE PO SCH (07:54)
[2019-03-02] MEDS: DIVALPROEX SODIUM 500 MG DR TABLET PO SCH ×2 (07:54→20:23)
[2019-03-02] MEDS: QUEtiapine FUMARATE 200 MG TABLET PO SCH ×2 (07:54→20:23)
[2019-03-02] MEDS: FLUoxetine HCL 20 MG CAPSULE PO SCH (07:54)
[2019-03-02] MEDS: OXYBUTYNIN CHLORIDE 5 MG ER TABLET PO SCH (07:54)
[2019-03-02] MEDS: MULTIVITAMINS WITH MINERALS, THERAPEUTIC TABLET PO SCH (07:54)
[2019-03-02] MEDS: MAGNESIUM OXIDE 400 MG TABLET PO SCH ×2 (07:54→17:11)
[2019-03-02] MEDS: ASPIRIN 81 MG EC TABLET PO SCH (07:54)
[2019-03-02] MEDS: LevETIRAcetam 250 MG TABLET PO SCH ×2 (07:55→17:11)
[2019-03-02] MEDS: TOPIRAMATE 100 MG TABLET PO SCH ×3 (07:55→17:11)
[2019-03-02] MEDS: CHLORHEXIDINE GLUCONATE 4% 118 ML TOPICAL LIQUID TP SCH (07:55)
[2019-03-02 13:10] VITALS: BP 128/67
[2019-03-02 16:10] VITALS: BP 125/83
[2019-03-02] MEDS: HALOPERIDOL 10 MG TABLET PO SCH (20:23)
[2019-03-03] MEDS: LEVOTHYROXINE SODIUM 125 MCG TABLET PO SCH (07:00)
[2019-03-03] MEDS: FERROUS SULFATE 325 MG EC TABLET PO SCH ×2 (07:01→16:19)
[2019-03-03] MEDS: OXYBUTYNIN CHLORIDE 5 MG ER TABLET PO SCH (08:07)
[2019-03-03] MEDS: LevETIRAcetam 250 MG TABLET PO SCH ×2 (08:07→16:19)
[2019-03-03] MEDS: FLUoxetine HCL 20 MG CAPSULE PO SCH (08:07)
[2019-03-03] MEDS: OMEPRAZOLE 20 MG CAPSULE PO SCH (08:07)
[2019-03-03] MEDS: TOPIRAMATE 100 MG TABLET PO SCH ×3 (08:07→16:19)
[2019-03-03] MEDS: ASCORBIC ACID 500 MG TABLET PO SCH (08:07)
[2019-03-03] MEDS: QUEtiapine FUMARATE 200 MG TABLET PO SCH ×2 (08:07→21:01)
[2019-03-03] MEDS: DIVALPROEX SODIUM 500 MG DR TABLET PO SCH ×2 (08:08→21:01)
[2019-03-03] MEDS: ASPIRIN 81 MG EC TABLET PO SCH (08:08)
[2019-03-03] MEDS: DOCUSATE SODIUM 100 MG CAPSULE PO SCH (08:08)
[2019-03-03] MEDS: LORATADINE 10 MG TABLET PO SCH (08:08)
[2019-03-03] MEDS: MAGNESIUM OXIDE 400 MG TABLET PO SCH ×2 (08:08→16:19)
[2019-03-03] MEDS: MULTIVITAMINS WITH MINERALS, THERAPEUTIC TABLET PO SCH (08:08)
[2019-03-03] MEDS: CHLORHEXIDINE GLUCONATE 4% 118 ML TOPICAL LIQUID TP SCH (08:09)
[2019-03-03 17:01] LABS: GLUCOMETER DEV NAME(LOC) 3E.I; GLUCOSE,POINT OF CARE 144 MG/DL (70-110)
[2019-03-03] MEDS: HALOPERIDOL 10 MG TABLET PO SCH (21:01)
[2019-03-04] MEDS: FERROUS SULFATE 325 MG EC TABLET PO SCH ×2 (07:00→18:30)
[2019-03-04] MEDS: LEVOTHYROXINE SODIUM 125 MCG TABLET PO SCH (07:00)
[2019-03-04] MEDS: LORATADINE 10 MG TABLET PO SCH (09:57)
[2019-03-04] MEDS: ASPIRIN 81 MG EC TABLET PO SCH (09:58)
[2019-03-04] MEDS: QUEtiapine FUMARATE 200 MG TABLET PO SCH ×2 (09:58→20:06)
[2019-03-04] MEDS: DOCUSATE SODIUM 100 MG CAPSULE PO SCH (09:59)
[2019-03-04] MEDS: DIVALPROEX SODIUM 500 MG DR TABLET PO SCH ×2 (09:59→20:07)
[2019-03-04] MEDS: MULTIVITAMINS WITH MINERALS, THERAPEUTIC TABLET PO SCH (10:00)
[2019-03-04] MEDS: LevETIRAcetam 250 MG TABLET PO SCH ×2 (10:01→18:00)
[2019-03-04] MEDS: MAGNESIUM OXIDE 400 MG TABLET PO SCH ×2 (10:01→18:00)
[2019-03-04] MEDS: FLUoxetine HCL 20 MG CAPSULE PO SCH (10:01)
[2019-03-04] MEDS: OMEPRAZOLE 20 MG CAPSULE PO SCH (10:01)
[2019-03-04] MEDS: TOPIRAMATE 100 MG TABLET PO SCH ×3 (10:02→18:00)
[2019-03-04] MEDS: ASCORBIC ACID 500 MG TABLET PO SCH (10:02)
[2019-03-04] MEDS: OXYBUTYNIN CHLORIDE 5 MG ER TABLET PO SCH (10:03)
[2019-03-04] MEDS: CHLORHEXIDINE GLUCONATE 4% 118 ML TOPICAL LIQUID TP SCH (10:03)
[2019-03-04 16:02] VITALS: BP 129/82
[2019-03-04] MEDS: HALOPERIDOL 10 MG TABLET PO SCH (20:07)
[2019-03-05] MEDS: FERROUS SULFATE 325 MG EC TABLET PO SCH ×2 (06:41→16:16)
[2019-03-05] MEDS: LEVOTHYROXINE SODIUM 125 MCG TABLET PO SCH (06:41)
[2019-03-05] MEDS: MAGNESIUM OXIDE 400 MG TABLET PO SCH ×2 (08:15→16:16)
[2019-03-05] MEDS: FLUoxetine HCL 20 MG CAPSULE PO SCH (08:15)
[2019-03-05] MEDS: QUEtiapine FUMARATE 200 MG TABLET PO SCH ×2 (08:15→20:25)
[2019-03-05] MEDS: LORATADINE 10 MG TABLET PO SCH (08:16)
[2019-03-05] MEDS: OMEPRAZOLE 20 MG CAPSULE PO SCH (08:16)
[2019-03-05] MEDS: DIVALPROEX SODIUM 500 MG DR TABLET PO SCH ×2 (08:16→20:25)
[2019-03-05] MEDS: DOCUSATE SODIUM 100 MG CAPSULE PO SCH (08:16)
[2019-03-05] MEDS: MULTIVITAMINS WITH MINERALS, THERAPEUTIC TABLET PO SCH (08:16)
[2019-03-05] MEDS: TOPIRAMATE 100 MG TABLET PO SCH ×3 (08:17→16:16)
[2019-03-05] MEDS: ASCORBIC ACID 500 MG TABLET PO SCH (08:17)
[2019-03-05] MEDS: OXYBUTYNIN CHLORIDE 5 MG ER TABLET PO SCH (08:17)
[2019-03-05] MEDS: ASPIRIN 81 MG EC TABLET PO SCH (08:17)
[2019-03-05] MEDS: CHLORHEXIDINE GLUCONATE 4% 118 ML TOPICAL LIQUID TP SCH (08:17)
[2019-03-05] MEDS: LevETIRAcetam 250 MG TABLET PO SCH ×2 (08:18→16:16)
[2019-03-05] MEDS: HALOPERIDOL 5 MG TABLET PO PRN (16:16)
[2019-03-05 16:33] VITALS: BP 124/77
[2019-03-05] MEDS: HALOPERIDOL 10 MG TABLET PO SCH (20:25)
[2019-03-06] MEDS: LEVOTHYROXINE SODIUM 125 MCG TABLET PO SCH (06:43)
[2019-03-06] MEDS: FERROUS SULFATE 325 MG EC TABLET PO SCH ×2 (06:44→17:55)
[2019-03-06] MEDS: TOPIRAMATE 100 MG TABLET PO SCH ×3 (08:24→17:55)
[2019-03-06] MEDS: MULTIVITAMINS WITH MINERALS, THERAPEUTIC TABLET PO SCH (08:24)
[2019-03-06] MEDS: OXYBUTYNIN CHLORIDE 5 MG ER TABLET PO SCH (08:24)
[2019-03-06] MEDS: MAGNESIUM OXIDE 400 MG TABLET PO SCH ×2 (08:24→17:55)
[2019-03-06] MEDS: ASPIRIN 81 MG EC TABLET PO SCH (08:24)
[2019-03-06] MEDS: FLUoxetine HCL 20 MG CAPSULE PO SCH (08:24)
[2019-03-06] MEDS: OMEPRAZOLE 20 MG CAPSULE PO SCH (08:25)
[2019-03-06] MEDS: LevETIRAcetam 250 MG TABLET PO SCH ×2 (08:25→17:55)
[2019-03-06] MEDS: QUEtiapine FUMARATE 200 MG TABLET PO SCH ×2 (08:25→21:19)
[2019-03-06] MEDS: DOCUSATE SODIUM 100 MG CAPSULE PO SCH (08:25)
[2019-03-06] MEDS: LORATADINE 10 MG TABLET PO SCH (08:25)
[2019-03-06] MEDS: DIVALPROEX SODIUM 500 MG DR TABLET PO SCH ×2 (08:25→21:19)
[2019-03-06] MEDS: ASCORBIC ACID 500 MG TABLET PO SCH (08:25)
[2019-03-06] MEDS: CHLORHEXIDINE GLUCONATE 4% 118 ML TOPICAL LIQUID TP SCH (08:27)
[2019-03-06 09:00] VITALS: BP 95/45
[2019-03-06 16:32] VITALS: BP 105/82
[2019-03-06] MEDS: HALOPERIDOL 10 MG TABLET PO SCH (21:19)
[2019-03-07] MEDS: FERROUS SULFATE 325 MG EC TABLET PO SCH ×2 (06:45→16:42)
[2019-03-07] MEDS: LEVOTHYROXINE SODIUM 125 MCG TABLET PO SCH (06:45)
[2019-03-07] MEDS: HALOPERIDOL 5 MG TABLET PO PRN (10:47)
[2019-03-07] MEDS: FLUoxetine HCL 20 MG CAPSULE PO SCH (10:48)
[2019-03-07] MEDS: LORATADINE 10 MG TABLET PO SCH (10:48)
[2019-03-07] MEDS: DIVALPROEX SODIUM 500 MG DR TABLET PO SCH ×2 (10:48→22:01)
[2019-03-07] MEDS: MULTIVITAMINS WITH MINERALS, THERAPEUTIC TABLET PO SCH (10:48)
[2019-03-07] MEDS: ASPIRIN 81 MG EC TABLET PO SCH (10:48)
[2019-03-07] MEDS: OMEPRAZOLE 20 MG CAPSULE PO SCH (10:48)
[2019-03-07] MEDS: ASCORBIC ACID 500 MG TABLET PO SCH (10:49)
[2019-03-07] MEDS: QUEtiapine FUMARATE 200 MG TABLET PO SCH ×2 (10:49→22:00)
[2019-03-07] MEDS: DOCUSATE SODIUM 100 MG CAPSULE PO SCH (10:49)
[2019-03-07] MEDS: TOPIRAMATE 100 MG TABLET PO SCH ×3 (10:49→16:42)
[2019-03-07] MEDS: LevETIRAcetam 250 MG TABLET PO SCH ×2 (10:49→16:42)
[2019-03-07] MEDS: MAGNESIUM OXIDE 400 MG TABLET PO SCH ×2 (10:49→16:42)
[2019-03-07] MEDS: OXYBUTYNIN CHLORIDE 5 MG ER TABLET PO SCH (10:50)
[2019-03-07] MEDS: CHLORHEXIDINE GLUCONATE 4% 118 ML TOPICAL LIQUID TP SCH (12:00)
[2019-03-07 17:00] VITALS: BP 111/68
[2019-03-07] MEDS: HALOPERIDOL 10 MG TABLET PO SCH (22:00)
[2019-03-08] MEDS: LEVOTHYROXINE SODIUM 125 MCG TABLET PO SCH (07:00)
[2019-03-08] MEDS: FERROUS SULFATE 325 MG EC TABLET PO SCH ×2 (07:01→17:45)
[2019-03-08] MEDS: OMEPRAZOLE 20 MG CAPSULE PO SCH (08:47)
[2019-03-08] MEDS: HALOPERIDOL 5 MG TABLET PO PRN (08:47)
[2019-03-08] MEDS: DIVALPROEX SODIUM 500 MG DR TABLET PO SCH ×2 (08:47→20:33)
[2019-03-08] MEDS: ASCORBIC ACID 500 MG TABLET PO SCH (08:47)
[2019-03-08] MEDS: LORATADINE 10 MG TABLET PO SCH (08:47)
[2019-03-08] MEDS: OXYBUTYNIN CHLORIDE 5 MG ER TABLET PO SCH (08:47)
[2019-03-08] MEDS: LevETIRAcetam 250 MG TABLET PO SCH ×2 (08:48→17:45)
[2019-03-08] MEDS: FLUoxetine HCL 20 MG CAPSULE PO SCH (08:48)
[2019-03-08] MEDS: MULTIVITAMINS WITH MINERALS, THERAPEUTIC TABLET PO SCH (08:48)
[2019-03-08] MEDS: DOCUSATE SODIUM 100 MG CAPSULE PO SCH (08:48)
[2019-03-08] MEDS: QUEtiapine FUMARATE 200 MG TABLET PO SCH ×2 (08:48→20:33)
[2019-03-08] MEDS: ASPIRIN 81 MG EC TABLET PO SCH (08:48)
[2019-03-08] MEDS: MAGNESIUM OXIDE 400 MG TABLET PO SCH ×2 (08:48→17:45)
[2019-03-08] MEDS: CHLORHEXIDINE GLUCONATE 4% 118 ML TOPICAL LIQUID TP SCH (08:49)
[2019-03-08] MEDS: TOPIRAMATE 100 MG TABLET PO SCH ×3 (08:49→17:45)
[2019-03-08] MEDS: HALOPERIDOL 10 MG TABLET PO SCH (20:34)
[2019-03-09] MEDS: FERROUS SULFATE 325 MG EC TABLET PO SCH ×2 (06:51→17:56)
[2019-03-09] MEDS: LEVOTHYROXINE SODIUM 125 MCG TABLET PO SCH (06:51)
[2019-03-09] MEDS: DOCUSATE SODIUM 100 MG CAPSULE PO SCH (08:08)
[2019-03-09] MEDS: OMEPRAZOLE 20 MG CAPSULE PO SCH (08:09)
[2019-03-09] MEDS: ASCORBIC ACID 500 MG TABLET PO SCH (08:09)
[2019-03-09] MEDS: MAGNESIUM OXIDE 400 MG TABLET PO SCH ×2 (08:10→17:56)
[2019-03-09] MEDS: MULTIVITAMINS WITH MINERALS, THERAPEUTIC TABLET PO SCH (08:10)
[2019-03-09] MEDS: ASPIRIN 81 MG EC TABLET PO SCH (08:11)
[2019-03-09] MEDS: LevETIRAcetam 250 MG TABLET PO SCH ×2 (08:11→17:56)
[2019-03-09] MEDS: FLUoxetine HCL 20 MG CAPSULE PO SCH (08:12)
[2019-03-09] MEDS: OXYBUTYNIN CHLORIDE 5 MG ER TABLET PO SCH (08:12)
[2019-03-09] MEDS: TOPIRAMATE 100 MG TABLET PO SCH ×3 (08:12→17:56)
[2019-03-09] MEDS: LORATADINE 10 MG TABLET PO SCH (08:12)
[2019-03-09] MEDS: HALOPERIDOL 5 MG TABLET PO PRN (08:13)
[2019-03-09] MEDS: DIVALPROEX SODIUM 500 MG DR TABLET PO SCH ×2 (08:13→20:39)
[2019-03-09] MEDS: QUEtiapine FUMARATE 200 MG TABLET PO SCH ×2 (08:13→20:40)
[2019-03-09] MEDS: CHLORHEXIDINE GLUCONATE 4% 118 ML TOPICAL LIQUID TP SCH (08:14)
[2019-03-09 19:38] VITALS: BP 111/69
[2019-03-09] MEDS: HALOPERIDOL 10 MG TABLET PO SCH (20:40)
[2019-03-10] MEDS: LEVOTHYROXINE SODIUM 125 MCG TABLET PO SCH (06:59)
[2019-03-10] MEDS: FERROUS SULFATE 325 MG EC TABLET PO SCH ×2 (06:59→17:50)
[2019-03-10] MEDS: DIVALPROEX SODIUM 500 MG DR TABLET PO SCH ×2 (09:12→20:29)
[2019-03-10] MEDS: ASCORBIC ACID 500 MG TABLET PO SCH (09:12)
[2019-03-10] MEDS: OXYBUTYNIN CHLORIDE 5 MG ER TABLET PO SCH (09:12)
[2019-03-10] MEDS: MULTIVITAMINS WITH MINERALS, THERAPEUTIC TABLET PO SCH (09:13)
[2019-03-10] MEDS: MAGNESIUM OXIDE 400 MG TABLET PO SCH ×2 (09:13→17:49)
[2019-03-10] MEDS: LevETIRAcetam 250 MG TABLET PO SCH ×2 (09:13→17:49)
[2019-03-10] MEDS: FLUoxetine HCL 20 MG CAPSULE PO SCH (09:13)
[2019-03-10] MEDS: TOPIRAMATE 100 MG TABLET PO SCH ×3 (09:13→17:49)
[2019-03-10] MEDS: QUEtiapine FUMARATE 200 MG TABLET PO SCH ×2 (09:14→20:29)
[2019-03-10] MEDS: OMEPRAZOLE 20 MG CAPSULE PO SCH (09:14)
[2019-03-10] MEDS: DOCUSATE SODIUM 100 MG CAPSULE PO SCH (09:14)
[2019-03-10] MEDS: LORATADINE 10 MG TABLET PO SCH (09:14)
[2019-03-10] MEDS: ASPIRIN 81 MG EC TABLET PO SCH (09:14)
[2019-03-10] MEDS: CHLORHEXIDINE GLUCONATE 4% 118 ML TOPICAL LIQUID TP SCH (09:15)
[2019-03-10] MEDS: HALOPERIDOL 5 MG TABLET PO PRN (09:18)
[2019-03-10 11:29] VITALS: BP 137/65
[2019-03-10 12:02] VITALS: BP 110/63
[2019-03-10 16:02] VITALS: BP 127/77
[2019-03-10] MEDS: HALOPERIDOL 10 MG TABLET PO SCH (20:29)
[2019-03-11] MEDS: FERROUS SULFATE 325 MG EC TABLET PO SCH ×2 (06:41→16:15)
[2019-03-11] MEDS: LEVOTHYROXINE SODIUM 125 MCG TABLET PO SCH (06:41)
[2019-03-11] MEDS: MAGNESIUM OXIDE 400 MG TABLET PO SCH ×2 (09:09→16:16)
[2019-03-11] MEDS: FLUoxetine HCL 20 MG CAPSULE PO SCH (09:09)
[2019-03-11] MEDS: LORATADINE 10 MG TABLET PO SCH (09:09)
[2019-03-11] MEDS: OMEPRAZOLE 20 MG CAPSULE PO SCH (09:09)
[2019-03-11] MEDS: MULTIVITAMINS WITH MINERALS, THERAPEUTIC TABLET PO SCH (09:09)
[2019-03-11] MEDS: ASPIRIN 81 MG EC TABLET PO SCH (09:09)
[2019-03-11] MEDS: QUEtiapine FUMARATE 200 MG TABLET PO SCH ×2 (09:09→20:12)
[2019-03-11] MEDS: DOCUSATE SODIUM 100 MG CAPSULE PO SCH (09:09)
[2019-03-11] MEDS: DIVALPROEX SODIUM 500 MG DR TABLET PO SCH ×2 (09:10→20:12)
[2019-03-11] MEDS: CHLORHEXIDINE GLUCONATE 4% 118 ML TOPICAL LIQUID TP SCH (09:11)
[2019-03-11] MEDS: OXYBUTYNIN CHLORIDE 5 MG ER TABLET PO SCH (09:11)
[2019-03-11] MEDS: LevETIRAcetam 250 MG TABLET PO SCH ×2 (09:11→16:15)
[2019-03-11] MEDS: ASCORBIC ACID 500 MG TABLET PO SCH (09:11)
[2019-03-11] MEDS: TOPIRAMATE 100 MG TABLET PO SCH ×3 (09:11→16:15)
[2019-03-11 16:28] VITALS: BP 119/77
[2019-03-11] MEDS: HALOPERIDOL 10 MG TABLET PO SCH (20:13)
[2019-03-12] MEDS: LEVOTHYROXINE SODIUM 125 MCG TABLET PO SCH (06:46)
[2019-03-12] MEDS: FERROUS SULFATE 325 MG EC TABLET PO SCH ×2 (06:46→18:00)
[2019-03-12] MEDS: FLUoxetine HCL 20 MG CAPSULE PO SCH (09:34)
[2019-03-12] MEDS: LORATADINE 10 MG TABLET PO SCH (09:34)
[2019-03-12] MEDS: MAGNESIUM OXIDE 400 MG TABLET PO SCH ×2 (09:34→18:00)
[2019-03-12] MEDS: MULTIVITAMINS WITH MINERALS, THERAPEUTIC TABLET PO SCH (09:34)
[2019-03-12] MEDS: OMEPRAZOLE 20 MG CAPSULE PO SCH (09:34)
[2019-03-12] MEDS: ASPIRIN 81 MG EC TABLET PO SCH (09:34)
[2019-03-12] MEDS: QUEtiapine FUMARATE 200 MG TABLET PO SCH ×2 (09:34→20:56)
[2019-03-12] MEDS: DIVALPROEX SODIUM 500 MG DR TABLET PO SCH ×2 (09:34→20:56)
[2019-03-12] MEDS: DOCUSATE SODIUM 100 MG CAPSULE PO SCH (09:34)
[2019-03-12] MEDS: LevETIRAcetam 250 MG TABLET PO SCH ×2 (09:35→18:00)
[2019-03-12] MEDS: ASCORBIC ACID 500 MG TABLET PO SCH (09:35)
[2019-03-12] MEDS: OXYBUTYNIN CHLORIDE 5 MG ER TABLET PO SCH (09:35)
[2019-03-12] MEDS: TOPIRAMATE 100 MG TABLET PO SCH ×3 (09:35→18:00)
[2019-03-12] MEDS: CHLORHEXIDINE GLUCONATE 4% 118 ML TOPICAL LIQUID TP SCH (09:35)
[2019-03-12] MEDS: HALOPERIDOL 10 MG TABLET PO SCH (20:56)
[2019-03-13] MEDS: FERROUS SULFATE 325 MG EC TABLET PO SCH ×2 (06:47→17:36)
[2019-03-13] MEDS: LEVOTHYROXINE SODIUM 125 MCG TABLET PO SCH (06:47)
[2019-03-13] MEDS: LevETIRAcetam 250 MG TABLET PO SCH ×2 (08:50→17:37)
[2019-03-13] MEDS: OMEPRAZOLE 20 MG CAPSULE PO SCH (08:51)
[2019-03-13] MEDS: MAGNESIUM OXIDE 400 MG TABLET PO SCH ×2 (08:51→17:37)
[2019-03-13] MEDS: ASCORBIC ACID 500 MG TABLET PO SCH (08:51)
[2019-03-13] MEDS: FLUoxetine HCL 20 MG CAPSULE PO SCH (08:51)
[2019-03-13] MEDS: ASPIRIN 81 MG EC TABLET PO SCH (08:51)
[2019-03-13] MEDS: DIVALPROEX SODIUM 500 MG DR TABLET PO SCH ×2 (08:51→20:13)
[2019-03-13] MEDS: QUEtiapine FUMARATE 200 MG TABLET PO SCH ×2 (08:51→20:12)
[2019-03-13] MEDS: LORATADINE 10 MG TABLET PO SCH (08:51)
[2019-03-13] MEDS: OXYBUTYNIN CHLORIDE 5 MG ER TABLET PO SCH (08:51)
[2019-03-13] MEDS: DOCUSATE SODIUM 100 MG CAPSULE PO SCH (08:51)
[2019-03-13] MEDS: CHLORHEXIDINE GLUCONATE 4% 118 ML TOPICAL LIQUID TP SCH (08:52)
[2019-03-13] MEDS: TOPIRAMATE 100 MG TABLET PO SCH ×3 (08:52→17:37)
[2019-03-13] MEDS: MULTIVITAMINS WITH MINERALS, THERAPEUTIC TABLET PO SCH (08:52)
[2019-03-13 09:00] VITALS: BP 111/53
[2019-03-13 16:14] VITALS: BP 119/76
[2019-03-13] MEDS: HALOPERIDOL 10 MG TABLET PO SCH (20:12)
[2019-03-14] MEDS: FERROUS SULFATE 325 MG EC TABLET PO SCH ×2 (06:41→16:52)
[2019-03-14] MEDS: LEVOTHYROXINE SODIUM 125 MCG TABLET PO SCH (06:41)
[2019-03-14] MEDS: MULTIVITAMINS WITH MINERALS, THERAPEUTIC TABLET PO SCH (09:15)
[2019-03-14] MEDS: OMEPRAZOLE 20 MG CAPSULE PO SCH (09:15)
[2019-03-14] MEDS: QUEtiapine FUMARATE 200 MG TABLET PO SCH ×2 (09:15→20:05)
[2019-03-14] MEDS: OXYBUTYNIN CHLORIDE 5 MG ER TABLET PO SCH (09:16)
[2019-03-14] MEDS: MAGNESIUM OXIDE 400 MG TABLET PO SCH ×2 (09:16→16:52)
[2019-03-14] MEDS: ASCORBIC ACID 500 MG TABLET PO SCH (09:16)
[2019-03-14] MEDS: DIVALPROEX SODIUM 500 MG DR TABLET PO SCH ×2 (09:16→20:06)
[2019-03-14] MEDS: LevETIRAcetam 250 MG TABLET PO SCH ×2 (09:16→16:52)
[2019-03-14] MEDS: DOCUSATE SODIUM 100 MG CAPSULE PO SCH (09:16)
[2019-03-14] MEDS: LORATADINE 10 MG TABLET PO SCH (09:16)
[2019-03-14] MEDS: FLUoxetine HCL 20 MG CAPSULE PO SCH (09:16)
[2019-03-14] MEDS: ASPIRIN 81 MG EC TABLET PO SCH (09:16)
[2019-03-14] MEDS: TOPIRAMATE 100 MG TABLET PO SCH ×3 (09:16→16:52)
[2019-03-14] MEDS: HALOPERIDOL 5 MG TABLET PO PRN (09:17)
[2019-03-14] MEDS: CHLORHEXIDINE GLUCONATE 4% 118 ML TOPICAL LIQUID TP SCH (11:58)
[2019-03-14 16:30] VITALS: BP 108/60
[2019-03-14] MEDS: HALOPERIDOL 10 MG TABLET PO SCH (20:05)
[2019-03-15] MEDS: LEVOTHYROXINE SODIUM 125 MCG TABLET PO SCH (06:56)
[2019-03-15] MEDS: FERROUS SULFATE 325 MG EC TABLET PO SCH ×2 (06:56→17:33)
[2019-03-15 08:00] VITALS: BP 126/98
[2019-03-15] MEDS: LORATADINE 10 MG TABLET PO SCH (08:20)
[2019-03-15] MEDS: MAGNESIUM OXIDE 400 MG TABLET PO SCH ×2 (08:20→17:33)
[2019-03-15] MEDS: DIVALPROEX SODIUM 500 MG DR TABLET PO SCH ×2 (08:20→21:14)
[2019-03-15] MEDS: HALOPERIDOL 5 MG TABLET PO PRN (08:20)
[2019-03-15] MEDS: QUEtiapine FUMARATE 200 MG TABLET PO SCH ×2 (08:20→21:14)
[2019-03-15] MEDS: OMEPRAZOLE 20 MG CAPSULE PO SCH (08:21)
[2019-03-15] MEDS: ASPIRIN 81 MG EC TABLET PO SCH (08:21)
[2019-03-15] MEDS: MULTIVITAMINS WITH MINERALS, THERAPEUTIC TABLET PO SCH (08:21)
[2019-03-15] MEDS: DOCUSATE SODIUM 100 MG CAPSULE PO SCH (08:21)
[2019-03-15] MEDS: FLUoxetine HCL 20 MG CAPSULE PO SCH (08:21)
[2019-03-15] MEDS: LevETIRAcetam 250 MG TABLET PO SCH ×2 (08:23→17:33)
[2019-03-15] MEDS: TOPIRAMATE 100 MG TABLET PO SCH ×3 (08:23→17:33)
[2019-03-15] MEDS: ASCORBIC ACID 500 MG TABLET PO SCH (08:23)
[2019-03-15] MEDS: OXYBUTYNIN CHLORIDE 5 MG ER TABLET PO SCH (08:23)
[2019-03-15] MEDS: CHLORHEXIDINE GLUCONATE 4% 118 ML TOPICAL LIQUID TP SCH (08:23)
[2019-03-15 18:02] VITALS: BP 124/78
[2019-03-15] MEDS: HALOPERIDOL 10 MG TABLET PO SCH (21:13)
[2019-03-16] MEDS: LEVOTHYROXINE SODIUM 125 MCG TABLET PO SCH (06:43)
[2019-03-16] MEDS: FERROUS SULFATE 325 MG EC TABLET PO SCH ×2 (06:53→18:00)
[2019-03-16 08:00] VITALS: BP 105/65
[2019-03-16] MEDS: FLUoxetine HCL 20 MG CAPSULE PO SCH (09:55)
[2019-03-16] MEDS: DIVALPROEX SODIUM 500 MG DR TABLET PO SCH ×2 (09:55→20:08)
[2019-03-16] MEDS: HALOPERIDOL 5 MG TABLET PO PRN (09:55)
[2019-03-16] MEDS: TOPIRAMATE 100 MG TABLET PO SCH ×3 (09:56→18:00)
[2019-03-16] MEDS: OXYBUTYNIN CHLORIDE 5 MG ER TABLET PO SCH (09:56)
[2019-03-16] MEDS: MAGNESIUM OXIDE 400 MG TABLET PO SCH ×2 (09:56→18:00)
[2019-03-16] MEDS: QUEtiapine FUMARATE 200 MG TABLET PO SCH ×2 (09:56→20:08)
[2019-03-16] MEDS: MULTIVITAMINS WITH MINERALS, THERAPEUTIC TABLET PO SCH (09:56)
[2019-03-16] MEDS: DOCUSATE SODIUM 100 MG CAPSULE PO SCH (09:56)
[2019-03-16] MEDS: LORATADINE 10 MG TABLET PO SCH (09:56)
[2019-03-16] MEDS: LevETIRAcetam 250 MG TABLET PO SCH ×2 (09:56→18:00)
[2019-03-16] MEDS: ASCORBIC ACID 500 MG TABLET PO SCH (09:56)
[2019-03-16] MEDS: ASPIRIN 81 MG EC TABLET PO SCH (09:56)
[2019-03-16] MEDS: OMEPRAZOLE 20 MG CAPSULE PO SCH (09:57)
[2019-03-16] MEDS: CHLORHEXIDINE GLUCONATE 4% 118 ML TOPICAL LIQUID TP SCH (10:53)
[2019-03-16] MEDS: HALOPERIDOL 10 MG TABLET PO SCH (20:08)
[2019-03-17] MEDS: LEVOTHYROXINE SODIUM 125 MCG TABLET PO SCH (07:04)
[2019-03-17] MEDS: FERROUS SULFATE 325 MG EC TABLET PO SCH ×2 (07:04→16:34)
[2019-03-17] MEDS: MULTIVITAMINS WITH MINERALS, THERAPEUTIC TABLET PO SCH (08:39)
[2019-03-17] MEDS: DIVALPROEX SODIUM 500 MG DR TABLET PO SCH ×2 (08:51→21:07)
[2019-03-17] MEDS: DOCUSATE SODIUM 100 MG CAPSULE PO SCH (08:51)
[2019-03-17] MEDS: LORATADINE 10 MG TABLET PO SCH (08:51)
[2019-03-17] MEDS: OXYBUTYNIN CHLORIDE 5 MG ER TABLET PO SCH (08:51)
[2019-03-17] MEDS: LevETIRAcetam 250 MG TABLET PO SCH ×2 (08:52→16:34)
[2019-03-17] MEDS: ASCORBIC ACID 500 MG TABLET PO SCH (08:52)
[2019-03-17] MEDS: TOPIRAMATE 100 MG TABLET PO SCH ×3 (08:52→16:34)
[2019-03-17] MEDS: FLUoxetine HCL 20 MG CAPSULE PO SCH (08:52)
[2019-03-17] MEDS: OMEPRAZOLE 20 MG CAPSULE PO SCH (08:52)
[2019-03-17] MEDS: MAGNESIUM OXIDE 400 MG TABLET PO SCH ×2 (08:52→16:34)
[2019-03-17] MEDS: QUEtiapine FUMARATE 200 MG TABLET PO SCH ×2 (08:52→21:07)
[2019-03-17] MEDS: ASPIRIN 81 MG EC TABLET PO SCH (08:52)
[2019-03-17] MEDS: CHLORHEXIDINE GLUCONATE 4% 118 ML TOPICAL LIQUID TP SCH (08:53)
[2019-03-17] MEDS: HALOPERIDOL 10 MG TABLET PO SCH (21:08)
[2019-03-18] MEDS: FERROUS SULFATE 325 MG EC TABLET PO SCH ×2 (06:53→17:08)
[2019-03-18] MEDS: LEVOTHYROXINE SODIUM 125 MCG TABLET PO SCH (06:53)
[2019-03-18] MEDS: OXYBUTYNIN CHLORIDE 5 MG ER TABLET PO SCH (11:10)
[2019-03-18] MEDS: ASCORBIC ACID 500 MG TABLET PO SCH (11:10)
[2019-03-18] MEDS: LevETIRAcetam 250 MG TABLET PO SCH ×2 (11:10→16:40)
[2019-03-18] MEDS: TOPIRAMATE 100 MG TABLET PO SCH ×3 (11:10→16:40)
[2019-03-18] MEDS: MAGNESIUM OXIDE 400 MG TABLET PO SCH ×2 (11:12→16:41)
[2019-03-18] MEDS: ASPIRIN 81 MG EC TABLET PO SCH (11:12)
[2019-03-18] MEDS: MULTIVITAMINS WITH MINERALS, THERAPEUTIC TABLET PO SCH (11:13)
[2019-03-18] MEDS: QUEtiapine FUMARATE 200 MG TABLET PO SCH ×2 (11:13→21:05)
[2019-03-18] MEDS: FLUoxetine HCL 20 MG CAPSULE PO SCH (11:13)
[2019-03-18] MEDS: DIVALPROEX SODIUM 500 MG DR TABLET PO SCH ×2 (11:13→21:04)
[2019-03-18] MEDS: OMEPRAZOLE 20 MG CAPSULE PO SCH (11:14)
[2019-03-18] MEDS: DOCUSATE SODIUM 100 MG CAPSULE PO SCH (11:14)
[2019-03-18] MEDS: LORATADINE 10 MG TABLET PO SCH (11:14)
[2019-03-18] MEDS: CHLORHEXIDINE GLUCONATE 4% 118 ML TOPICAL LIQUID TP SCH (11:15)
[2019-03-18] MEDS: HALOPERIDOL 10 MG TABLET PO SCH (21:04)
[2019-03-19] MEDS: LEVOTHYROXINE SODIUM 125 MCG TABLET PO SCH (06:43)
[2019-03-19] MEDS: FERROUS SULFATE 325 MG EC TABLET PO SCH ×2 (06:56→19:08)
[2019-03-19] MEDS: HALOPERIDOL 5 MG TABLET PO PRN (07:44)
[2019-03-19] MEDS: LevETIRAcetam 250 MG TABLET PO SCH ×2 (07:44→16:50)
[2019-03-19] MEDS: OMEPRAZOLE 20 MG CAPSULE PO SCH (07:44)
[2019-03-19] MEDS: DIVALPROEX SODIUM 500 MG DR TABLET PO SCH ×2 (07:44→21:18)
[2019-03-19] MEDS: OXYBUTYNIN CHLORIDE 5 MG ER TABLET PO SCH (07:45)
[2019-03-19] MEDS: QUEtiapine FUMARATE 200 MG TABLET PO SCH ×2 (07:45→21:18)
[2019-03-19] MEDS: MAGNESIUM OXIDE 400 MG TABLET PO SCH ×2 (07:45→16:49)
[2019-03-19] MEDS: LORATADINE 10 MG TABLET PO SCH (07:45)
[2019-03-19] MEDS: ASPIRIN 81 MG EC TABLET PO SCH (07:45)
[2019-03-19] MEDS: MULTIVITAMINS WITH MINERALS, THERAPEUTIC TABLET PO SCH (07:45)
[2019-03-19] MEDS: TOPIRAMATE 100 MG TABLET PO SCH ×3 (07:45→16:49)
[2019-03-19] MEDS: FLUoxetine HCL 20 MG CAPSULE PO SCH (07:45)
[2019-03-19] MEDS: ASCORBIC ACID 500 MG TABLET PO SCH (07:46)
[2019-03-19] MEDS: DOCUSATE SODIUM 100 MG CAPSULE PO SCH (07:46)
[2019-03-19] MEDS: CHLORHEXIDINE GLUCONATE 4% 118 ML TOPICAL LIQUID TP SCH (07:46)
[2019-03-19 08:45] VITALS: BP 110/69
[2019-03-19 16:26] VITALS: BP 106/72
[2019-03-19] MEDS: HALOPERIDOL 10 MG TABLET PO SCH (21:18)
[2019-03-20] MEDS: FERROUS SULFATE 325 MG EC TABLET PO SCH ×2 (06:36→16:21)
[2019-03-20] MEDS: LEVOTHYROXINE SODIUM 125 MCG TABLET PO SCH (06:36)
[2019-03-20] MEDS: DOCUSATE SODIUM 100 MG CAPSULE PO SCH (08:49)
[2019-03-20] MEDS: LORATADINE 10 MG TABLET PO SCH (08:49)
[2019-03-20] MEDS: DIVALPROEX SODIUM 500 MG DR TABLET PO SCH ×2 (08:49→20:30)
[2019-03-20] MEDS: MULTIVITAMINS WITH MINERALS, THERAPEUTIC TABLET PO SCH (08:50)
[2019-03-20] MEDS: OMEPRAZOLE 20 MG CAPSULE PO SCH (08:50)
[2019-03-20] MEDS: LevETIRAcetam 250 MG TABLET PO SCH ×2 (08:50→16:21)
[2019-03-20] MEDS: MAGNESIUM OXIDE 400 MG TABLET PO SCH ×2 (08:50→16:21)
[2019-03-20] MEDS: OXYBUTYNIN CHLORIDE 5 MG ER TABLET PO SCH (08:50)
[2019-03-20] MEDS: FLUoxetine HCL 20 MG CAPSULE PO SCH (08:50)
[2019-03-20] MEDS: ASPIRIN 81 MG EC TABLET PO SCH (08:50)
[2019-03-20] MEDS: ASCORBIC ACID 500 MG TABLET PO SCH (08:51)
[2019-03-20] MEDS: TOPIRAMATE 100 MG TABLET PO SCH ×3 (08:51→16:21)
[2019-03-20] MEDS: CHLORHEXIDINE GLUCONATE 4% 118 ML TOPICAL LIQUID TP SCH (08:51)
[2019-03-20] MEDS: QUEtiapine FUMARATE 200 MG TABLET PO SCH ×2 (08:51→20:30)
[2019-03-20] MEDS: HALOPERIDOL 10 MG TABLET PO SCH (20:30)
[2019-03-21] MEDS: LEVOTHYROXINE SODIUM 125 MCG TABLET PO SCH (06:54)
[2019-03-21] MEDS: FERROUS SULFATE 325 MG EC TABLET PO SCH ×2 (06:54→18:35)
[2019-03-21] MEDS: CHLORHEXIDINE GLUCONATE 4% 118 ML TOPICAL LIQUID TP SCH (09:00)
[2019-03-21] MEDS: DOCUSATE SODIUM 100 MG CAPSULE PO SCH (09:05)
[2019-03-21] MEDS: FLUoxetine HCL 20 MG CAPSULE PO SCH (09:05)
[2019-03-21] MEDS: MULTIVITAMINS WITH MINERALS, THERAPEUTIC TABLET PO SCH (09:06)
[2019-03-21] MEDS: OMEPRAZOLE 20 MG CAPSULE PO SCH (09:06)
[2019-03-21] MEDS: QUEtiapine FUMARATE 200 MG TABLET PO SCH ×2 (09:06→22:16)
[2019-03-21] MEDS: MAGNESIUM OXIDE 400 MG TABLET PO SCH ×2 (09:06→18:35)
[2019-03-21] MEDS: DIVALPROEX SODIUM 500 MG DR TABLET PO SCH ×2 (09:06→22:15)
[2019-03-21] MEDS: OXYBUTYNIN CHLORIDE 5 MG ER TABLET PO SCH (09:07)
[2019-03-21] MEDS: ASPIRIN 81 MG EC TABLET PO SCH (09:07)
[2019-03-21] MEDS: TOPIRAMATE 100 MG TABLET PO SCH ×3 (09:07→18:35)
[2019-03-21] MEDS: ASCORBIC ACID 500 MG TABLET PO SCH (09:07)
[2019-03-21] MEDS: LevETIRAcetam 250 MG TABLET PO SCH ×2 (09:08→18:35)
[2019-03-21] MEDS: LORATADINE 10 MG TABLET PO SCH (09:08)
[2019-03-21 13:26] VITALS: BP 132/83
[2019-03-21 16:25] VITALS: BP 107/63
[2019-03-21] MEDS: HALOPERIDOL 10 MG TABLET PO SCH (22:15)
[2019-03-22] MEDS: FERROUS SULFATE 325 MG EC TABLET PO SCH ×2 (06:45→16:21)
[2019-03-22] MEDS: LEVOTHYROXINE SODIUM 125 MCG TABLET PO SCH (06:45)
[2019-03-22 08:05] VITALS: BP 125/82
[2019-03-22] MEDS: ASPIRIN 81 MG EC TABLET PO SCH (10:55)
[2019-03-22] MEDS: DOCUSATE SODIUM 100 MG CAPSULE PO SCH (10:55)
[2019-03-22] MEDS: DIVALPROEX SODIUM 500 MG DR TABLET PO SCH ×2 (10:55→20:17)
[2019-03-22] MEDS: OMEPRAZOLE 20 MG CAPSULE PO SCH (10:55)
[2019-03-22] MEDS: FLUoxetine HCL 20 MG CAPSULE PO SCH (10:55)
[2019-03-22] MEDS: MULTIVITAMINS WITH MINERALS, THERAPEUTIC TABLET PO SCH (10:55)
[2019-03-22] MEDS: TOPIRAMATE 100 MG TABLET PO SCH ×3 (10:56→16:18)
[2019-03-22] MEDS: OXYBUTYNIN CHLORIDE 5 MG ER TABLET PO SCH (10:56)
[2019-03-22] MEDS: MAGNESIUM OXIDE 400 MG TABLET PO SCH ×2 (10:56→16:21)
[2019-03-22] MEDS: LevETIRAcetam 250 MG TABLET PO SCH ×2 (10:56→16:18)
[2019-03-22] MEDS: ASCORBIC ACID 500 MG TABLET PO SCH (10:56)
[2019-03-22] MEDS: LORATADINE 10 MG TABLET PO SCH (10:56)
[2019-03-22] MEDS: QUEtiapine FUMARATE 200 MG TABLET PO SCH ×2 (10:57→20:17)
[2019-03-22] MEDS: CHLORHEXIDINE GLUCONATE 4% 118 ML TOPICAL LIQUID TP SCH (10:58)
[2019-03-22] MEDS: HALOPERIDOL 10 MG TABLET PO SCH (20:17)
[2019-03-23] MEDS: LEVOTHYROXINE SODIUM 125 MCG TABLET PO SCH (06:42)
[2019-03-23] MEDS: FERROUS SULFATE 325 MG EC TABLET PO SCH ×2 (06:42→17:30)
[2019-03-23] MEDS: HALOPERIDOL 5 MG TABLET PO PRN (08:30)
[2019-03-23] MEDS: MULTIVITAMINS WITH MINERALS, THERAPEUTIC TABLET PO SCH (09:00)
[2019-03-23] MEDS: ASCORBIC ACID 500 MG TABLET PO SCH (09:00)
[2019-03-23] MEDS: FLUoxetine HCL 20 MG CAPSULE PO SCH (09:00)
[2019-03-23] MEDS: DIVALPROEX SODIUM 500 MG DR TABLET PO SCH ×2 (09:00→20:39)
[2019-03-23] MEDS: QUEtiapine FUMARATE 200 MG TABLET PO SCH ×2 (09:00→20:39)
[2019-03-23] MEDS: DOCUSATE SODIUM 100 MG CAPSULE PO SCH (09:00)
[2019-03-23] MEDS: TOPIRAMATE 100 MG TABLET PO SCH ×3 (09:00→17:30)
[2019-03-23] MEDS: ASPIRIN 81 MG EC TABLET PO SCH (09:00)
[2019-03-23] MEDS: OXYBUTYNIN CHLORIDE 5 MG ER TABLET PO SCH (09:00)
[2019-03-23] MEDS: OMEPRAZOLE 20 MG CAPSULE PO SCH (09:00)
[2019-03-23] MEDS: LORATADINE 10 MG TABLET PO SCH (09:00)
[2019-03-23] MEDS: MAGNESIUM OXIDE 400 MG TABLET PO SCH ×2 (09:00→17:30)
[2019-03-23] MEDS: CHLORHEXIDINE GLUCONATE 4% 118 ML TOPICAL LIQUID TP SCH (09:00)
[2019-03-23] MEDS: LevETIRAcetam 250 MG TABLET PO SCH ×2 (09:00→17:30)
[2019-03-23 19:13] VITALS: BP 115/78
[2019-03-23] MEDS: HALOPERIDOL 10 MG TABLET PO SCH (20:38)
[2019-03-24] MEDS: LEVOTHYROXINE SODIUM 125 MCG TABLET PO SCH (06:43)
[2019-03-24] MEDS: FERROUS SULFATE 325 MG EC TABLET PO SCH ×2 (06:44→18:00)
[2019-03-24] MEDS: HALOPERIDOL 5 MG TABLET PO PRN (08:45)
[2019-03-24] MEDS: ASPIRIN 81 MG EC TABLET PO SCH (08:45)
[2019-03-24] MEDS: OMEPRAZOLE 20 MG CAPSULE PO SCH (08:45)
[2019-03-24] MEDS: TOPIRAMATE 100 MG TABLET PO SCH ×3 (08:45→18:00)
[2019-03-24] MEDS: FLUoxetine HCL 20 MG CAPSULE PO SCH (08:46)
[2019-03-24] MEDS: LORATADINE 10 MG TABLET PO SCH (08:46)
[2019-03-24] MEDS: DIVALPROEX SODIUM 500 MG DR TABLET PO SCH ×2 (08:46→20:37)
[2019-03-24] MEDS: DOCUSATE SODIUM 100 MG CAPSULE PO SCH (08:46)
[2019-03-24] MEDS: OXYBUTYNIN CHLORIDE 5 MG ER TABLET PO SCH (08:46)
[2019-03-24] MEDS: MAGNESIUM OXIDE 400 MG TABLET PO SCH ×2 (08:46→18:00)
[2019-03-24] MEDS: MULTIVITAMINS WITH MINERALS, THERAPEUTIC TABLET PO SCH (08:46)
[2019-03-24] MEDS: ASCORBIC ACID 500 MG TABLET PO SCH (08:46)
[2019-03-24] MEDS: QUEtiapine FUMARATE 200 MG TABLET PO SCH ×2 (08:46→20:37)
[2019-03-24] MEDS: LevETIRAcetam 250 MG TABLET PO SCH ×2 (08:47→18:00)
[2019-03-24] MEDS: CHLORHEXIDINE GLUCONATE 4% 118 ML TOPICAL LIQUID TP SCH (08:47)
[2019-03-24 16:06] VITALS: BP 124/81
[2019-03-24] MEDS: HALOPERIDOL 10 MG TABLET PO SCH (20:38)
[2019-03-25] MEDS: FERROUS SULFATE 325 MG EC TABLET PO SCH ×2 (06:57→16:25)
[2019-03-25] MEDS: LEVOTHYROXINE SODIUM 125 MCG TABLET PO SCH (06:57)
[2019-03-25] MEDS: OXYBUTYNIN CHLORIDE 5 MG ER TABLET PO SCH (09:10)
[2019-03-25] MEDS: FLUoxetine HCL 20 MG CAPSULE PO SCH (09:10)
[2019-03-25] MEDS: ASPIRIN 81 MG EC TABLET PO SCH (09:10)
[2019-03-25] MEDS: HALOPERIDOL 5 MG TABLET PO PRN (09:10)
[2019-03-25] MEDS: OMEPRAZOLE 20 MG CAPSULE PO SCH (09:10)
[2019-03-25] MEDS: LevETIRAcetam 250 MG TABLET PO SCH ×2 (09:10→16:25)
[2019-03-25] MEDS: DOCUSATE SODIUM 100 MG CAPSULE PO SCH (09:10)
[2019-03-25] MEDS: LORATADINE 10 MG TABLET PO SCH (09:11)
[2019-03-25] MEDS: MAGNESIUM OXIDE 400 MG TABLET PO SCH ×2 (09:11→16:25)
[2019-03-25] MEDS: ASCORBIC ACID 500 MG TABLET PO SCH (09:11)
[2019-03-25] MEDS: MULTIVITAMINS WITH MINERALS, THERAPEUTIC TABLET PO SCH (09:11)
[2019-03-25] MEDS: DIVALPROEX SODIUM 500 MG DR TABLET PO SCH ×2 (09:11→20:02)
[2019-03-25] MEDS: TOPIRAMATE 100 MG TABLET PO SCH ×3 (09:11→16:25)
[2019-03-25] MEDS: CHLORHEXIDINE GLUCONATE 4% 118 ML TOPICAL LIQUID TP SCH (09:12)
[2019-03-25] MEDS: QUEtiapine FUMARATE 200 MG TABLET PO SCH ×2 (09:12→20:02)
[2019-03-25 13:13] VITALS: BP 142/74
[2019-03-25] MEDS: HALOPERIDOL 10 MG TABLET PO SCH (20:02)
[2019-03-26] MEDS: LEVOTHYROXINE SODIUM 125 MCG TABLET PO SCH (06:52)
[2019-03-26] MEDS: FERROUS SULFATE 325 MG EC TABLET PO SCH ×2 (06:52→17:31)
[2019-03-26 08:06] VITALS: BP 144/87
[2019-03-26] MEDS: TOPIRAMATE 100 MG TABLET PO SCH ×3 (09:00→17:30)
[2019-03-26] MEDS: ASCORBIC ACID 500 MG TABLET PO SCH (09:00)
[2019-03-26] MEDS: MULTIVITAMINS WITH MINERALS, THERAPEUTIC TABLET PO SCH (09:00)
[2019-03-26] MEDS: CHLORHEXIDINE GLUCONATE 4% 118 ML TOPICAL LIQUID TP SCH (09:00)
[2019-03-26] MEDS: FLUoxetine HCL 20 MG CAPSULE PO SCH (09:00)
[2019-03-26] MEDS: DIVALPROEX SODIUM 500 MG DR TABLET PO SCH ×2 (09:00→20:45)
[2019-03-26] MEDS: ASPIRIN 81 MG EC TABLET PO SCH (09:00)
[2019-03-26] MEDS: DOCUSATE SODIUM 100 MG CAPSULE PO SCH (09:00)
[2019-03-26] MEDS: MAGNESIUM OXIDE 400 MG TABLET PO SCH ×2 (09:00→17:30)
[2019-03-26] MEDS: OMEPRAZOLE 20 MG CAPSULE PO SCH (09:00)
[2019-03-26] MEDS: LORATADINE 10 MG TABLET PO SCH (09:00)
[2019-03-26] MEDS: OXYBUTYNIN CHLORIDE 5 MG ER TABLET PO SCH (09:00)
[2019-03-26] MEDS: QUEtiapine FUMARATE 200 MG TABLET PO SCH ×2 (09:00→20:46)
[2019-03-26] MEDS: LevETIRAcetam 250 MG TABLET PO SCH ×2 (09:00→17:30)
[2019-03-26] MEDS: HALOPERIDOL 5 MG TABLET PO PRN (09:03)
[2019-03-26] MEDS ORDERED: LORazepam 2 MG/ML VIAL IM ONE (12:45)
[2019-03-26] MEDS ORDERED: HALOPERIDOL LACTATE 5 MG/ML VIAL IM ONE (12:45)
[2019-03-26 18:24] VITALS: BP 134/79
[2019-03-26] MEDS: HALOPERIDOL 10 MG TABLET PO SCH (20:46)
[2019-03-27] MEDS: LEVOTHYROXINE SODIUM 125 MCG TABLET PO SCH (06:50)
[2019-03-27] MEDS: FERROUS SULFATE 325 MG EC TABLET PO SCH ×2 (06:51→18:00)
[2019-03-27] MEDS: MULTIVITAMINS WITH MINERALS, THERAPEUTIC TABLET PO SCH (07:56)
[2019-03-27] MEDS: DIVALPROEX SODIUM 500 MG DR TABLET PO SCH ×2 (07:56→20:26)
[2019-03-27] MEDS: LORATADINE 10 MG TABLET PO SCH (07:56)
[2019-03-27] MEDS: QUEtiapine FUMARATE 200 MG TABLET PO SCH ×2 (07:56→20:27)
[2019-03-27] MEDS: CHLORHEXIDINE GLUCONATE 4% 118 ML TOPICAL LIQUID TP SCH (07:56)
[2019-03-27] MEDS: FLUoxetine HCL 20 MG CAPSULE PO SCH (07:56)
[2019-03-27] MEDS: MAGNESIUM OXIDE 400 MG TABLET PO SCH ×2 (07:56→18:00)
[2019-03-27] MEDS: OMEPRAZOLE 20 MG CAPSULE PO SCH (07:56)
[2019-03-27] MEDS: ASPIRIN 81 MG EC TABLET PO SCH (07:56)
[2019-03-27] MEDS: LevETIRAcetam 250 MG TABLET PO SCH ×2 (07:57→18:00)
[2019-03-27] MEDS: ASCORBIC ACID 500 MG TABLET PO SCH (07:57)
[2019-03-27] MEDS: TOPIRAMATE 100 MG TABLET PO SCH ×3 (07:57→18:00)
[2019-03-27] MEDS: OXYBUTYNIN CHLORIDE 5 MG ER TABLET PO SCH (07:57)
[2019-03-27] MEDS: DOCUSATE SODIUM 100 MG CAPSULE PO SCH (07:58)
[2019-03-27] MEDS: HALOPERIDOL 5 MG TABLET PO PRN (08:20)
[2019-03-27 16:00] VITALS: BP 132/78
[2019-03-27] MEDS: HALOPERIDOL 10 MG TABLET PO SCH (20:26)
[2019-03-28] MEDS: LEVOTHYROXINE SODIUM 125 MCG TABLET PO SCH (06:45)
[2019-03-28] MEDS: FERROUS SULFATE 325 MG EC TABLET PO SCH ×2 (06:45→18:00)
[2019-03-28] MEDS: CHLORHEXIDINE GLUCONATE 4% 118 ML TOPICAL LIQUID TP SCH (08:47)
[2019-03-28] MEDS: OXYBUTYNIN CHLORIDE 5 MG ER TABLET PO SCH (08:47)
[2019-03-28] MEDS: LevETIRAcetam 250 MG TABLET PO SCH ×2 (08:47→18:00)
[2019-03-28] MEDS: TOPIRAMATE 100 MG TABLET PO SCH ×3 (08:47→18:00)
[2019-03-28] MEDS: ASCORBIC ACID 500 MG TABLET PO SCH (08:47)
[2019-03-28] MEDS: DIVALPROEX SODIUM 500 MG DR TABLET PO SCH ×2 (08:49→20:47)
[2019-03-28] MEDS: DOCUSATE SODIUM 100 MG CAPSULE PO SCH (08:51)
[2019-03-28] MEDS: QUEtiapine FUMARATE 200 MG TABLET PO SCH ×2 (08:51→20:47)
[2019-03-28] MEDS: LORATADINE 10 MG TABLET PO SCH (08:51)
[2019-03-28] MEDS: OMEPRAZOLE 20 MG CAPSULE PO SCH (08:51)
[2019-03-28] MEDS: ASPIRIN 81 MG EC TABLET PO SCH (08:51)
[2019-03-28] MEDS: FLUoxetine HCL 20 MG CAPSULE PO SCH (08:51)
[2019-03-28] MEDS: MAGNESIUM OXIDE 400 MG TABLET PO SCH ×2 (08:51→18:00)
[2019-03-28] MEDS: HALOPERIDOL 5 MG TABLET PO PRN (08:51)
[2019-03-28] MEDS: MULTIVITAMINS WITH MINERALS, THERAPEUTIC TABLET PO SCH (08:51)
[2019-03-28] MEDS: HALOPERIDOL 10 MG TABLET PO SCH (20:47)
[2019-03-29] MEDS: LEVOTHYROXINE SODIUM 125 MCG TABLET PO SCH (06:45)
[2019-03-29] MEDS: FERROUS SULFATE 325 MG EC TABLET PO SCH ×2 (06:45→17:13)
[2019-03-29 08:16] VITALS: BP 132/74
[2019-03-29] MEDS: OXYBUTYNIN CHLORIDE 5 MG ER TABLET PO SCH (09:00)
[2019-03-29] MEDS: ASCORBIC ACID 500 MG TABLET PO SCH (09:00)
[2019-03-29] MEDS: TOPIRAMATE 100 MG TABLET PO SCH ×3 (10:52→17:13)
[2019-03-29] MEDS: LevETIRAcetam 250 MG TABLET PO SCH ×2 (10:52→17:15)
[2019-03-29] MEDS: CHLORHEXIDINE GLUCONATE 4% 118 ML TOPICAL LIQUID TP SCH (10:52)
[2019-03-29] MEDS: MAGNESIUM OXIDE 400 MG TABLET PO SCH ×2 (10:53→17:13)
[2019-03-29] MEDS: ASPIRIN 81 MG EC TABLET PO SCH (10:53)
[2019-03-29] MEDS: MULTIVITAMINS WITH MINERALS, THERAPEUTIC TABLET PO SCH (10:54)
[2019-03-29] MEDS: QUEtiapine FUMARATE 200 MG TABLET PO SCH ×2 (10:54→20:29)
[2019-03-29] MEDS: HALOPERIDOL 5 MG TABLET PO PRN (10:54)
[2019-03-29] MEDS: DIVALPROEX SODIUM 500 MG DR TABLET PO SCH ×2 (10:54→20:29)
[2019-03-29] MEDS: LORATADINE 10 MG TABLET PO SCH (10:55)
[2019-03-29] MEDS: DOCUSATE SODIUM 100 MG CAPSULE PO SCH (10:55)
[2019-03-29] MEDS: FLUoxetine HCL 20 MG CAPSULE PO SCH (10:55)
[2019-03-29] MEDS: OMEPRAZOLE 20 MG CAPSULE PO SCH (10:55)
[2019-03-29] MEDS: HALOPERIDOL 10 MG TABLET PO SCH (20:29)
[2019-03-30] MEDS: FERROUS SULFATE 325 MG EC TABLET PO SCH ×2 (06:41→18:00)
[2019-03-30] MEDS: LEVOTHYROXINE SODIUM 125 MCG TABLET PO SCH (06:41)
[2019-03-30] MEDS: DIVALPROEX SODIUM 500 MG DR TABLET PO SCH ×2 (09:56→20:10)
[2019-03-30] MEDS: MAGNESIUM OXIDE 400 MG TABLET PO SCH ×2 (09:57→18:00)
[2019-03-30] MEDS: MULTIVITAMINS WITH MINERALS, THERAPEUTIC TABLET PO SCH (09:57)
[2019-03-30] MEDS: OMEPRAZOLE 20 MG CAPSULE PO SCH (09:57)
[2019-03-30] MEDS: ASPIRIN 81 MG EC TABLET PO SCH (09:57)
[2019-03-30] MEDS: FLUoxetine HCL 20 MG CAPSULE PO SCH (09:57)
[2019-03-30] MEDS: QUEtiapine FUMARATE 200 MG TABLET PO SCH ×2 (09:57→20:10)
[2019-03-30] MEDS: TOPIRAMATE 100 MG TABLET PO SCH ×3 (09:57→18:00)
[2019-03-30] MEDS: OXYBUTYNIN CHLORIDE 5 MG ER TABLET PO SCH (09:57)
[2019-03-30] MEDS: LevETIRAcetam 250 MG TABLET PO SCH ×2 (09:57→18:00)
[2019-03-30] MEDS: DOCUSATE SODIUM 100 MG CAPSULE PO SCH (09:57)
[2019-03-30] MEDS: LORATADINE 10 MG TABLET PO SCH (09:57)
[2019-03-30] MEDS: ASCORBIC ACID 500 MG TABLET PO SCH (09:58)
[2019-03-30] MEDS: CHLORHEXIDINE GLUCONATE 4% 118 ML TOPICAL LIQUID TP SCH (09:58)
[2019-03-30] MEDS: HALOPERIDOL 10 MG TABLET PO SCH (20:10)
[2019-03-31] MEDS: FERROUS SULFATE 325 MG EC TABLET PO SCH ×2 (06:32→16:52)
[2019-03-31] MEDS: LEVOTHYROXINE SODIUM 125 MCG TABLET PO SCH (06:32)
[2019-03-31] MEDS: ASPIRIN 81 MG EC TABLET PO SCH (07:42)
[2019-03-31] MEDS: DIVALPROEX SODIUM 500 MG DR TABLET PO SCH ×2 (07:43→20:14)
[2019-03-31] MEDS: MAGNESIUM OXIDE 400 MG TABLET PO SCH ×2 (07:43→16:52)
[2019-03-31] MEDS: DOCUSATE SODIUM 100 MG CAPSULE PO SCH (07:44)
[2019-03-31] MEDS: HALOPERIDOL 5 MG TABLET PO PRN (07:44)
[2019-03-31] MEDS: OMEPRAZOLE 20 MG CAPSULE PO SCH (07:44)
[2019-03-31] MEDS: LORATADINE 10 MG TABLET PO SCH (07:44)
[2019-03-31] MEDS: MULTIVITAMINS WITH MINERALS, THERAPEUTIC TABLET PO SCH (07:44)
[2019-03-31] MEDS: QUEtiapine FUMARATE 200 MG TABLET PO SCH ×2 (07:44→20:14)
[2019-03-31] MEDS: FLUoxetine HCL 20 MG CAPSULE PO SCH (07:45)
[2019-03-31] MEDS: TOPIRAMATE 100 MG TABLET PO SCH ×3 (07:45→16:52)
[2019-03-31] MEDS: CHLORHEXIDINE GLUCONATE 4% 118 ML TOPICAL LIQUID TP SCH (07:45)
[2019-03-31] MEDS: ASCORBIC ACID 500 MG TABLET PO SCH (07:45)
[2019-03-31] MEDS: OXYBUTYNIN CHLORIDE 5 MG ER TABLET PO SCH (07:45)
[2019-03-31] MEDS: LevETIRAcetam 250 MG TABLET PO SCH ×2 (09:00→16:52)
[2019-03-31 09:37] VITALS: BP 127/59
[2019-03-31 17:18] VITALS: BP 124/78
[2019-03-31] MEDS: HALOPERIDOL 10 MG TABLET PO SCH (20:14)
[2019-04-01] MEDS: LEVOTHYROXINE SODIUM 125 MCG TABLET PO SCH (06:52)
[2019-04-01] MEDS: FERROUS SULFATE 325 MG EC TABLET PO SCH ×2 (06:52→17:34)
[2019-04-01] MEDS: LORATADINE 10 MG TABLET PO SCH (08:03)
[2019-04-01] MEDS: DOCUSATE SODIUM 100 MG CAPSULE PO SCH (08:03)
[2019-04-01] MEDS: DIVALPROEX SODIUM 500 MG DR TABLET PO SCH ×2 (08:04→20:08)
[2019-04-01] MEDS: MULTIVITAMINS WITH MINERALS, THERAPEUTIC TABLET PO SCH (08:05)
[2019-04-01] MEDS: OMEPRAZOLE 20 MG CAPSULE PO SCH (08:05)
[2019-04-01] MEDS: TOPIRAMATE 100 MG TABLET PO SCH ×4 (08:05→17:34)
[2019-04-01] MEDS: OXYBUTYNIN CHLORIDE 5 MG ER TABLET PO SCH (08:05)
[2019-04-01] MEDS: ASPIRIN 81 MG EC TABLET PO SCH (08:05)
[2019-04-01] MEDS: MAGNESIUM OXIDE 400 MG TABLET PO SCH ×2 (08:06→17:35)
[2019-04-01] MEDS: FLUoxetine HCL 20 MG CAPSULE PO SCH (08:06)
[2019-04-01] MEDS: QUEtiapine FUMARATE 200 MG TABLET PO SCH ×2 (08:06→20:08)
[2019-04-01] MEDS: LevETIRAcetam 250 MG TABLET PO SCH ×2 (08:07→17:34)
[2019-04-01] MEDS: ASCORBIC ACID 500 MG TABLET PO SCH (08:08)
[2019-04-01] MEDS: CHLORHEXIDINE GLUCONATE 4% 118 ML TOPICAL LIQUID TP SCH (08:08)
[2019-04-01 09:19] VITALS: BP 95/71
[2019-04-01] MEDS: HALOPERIDOL 10 MG TABLET PO SCH (20:08)
[2019-04-01 20:32] VITALS: BP 102/74
[2019-04-02] MEDS: LEVOTHYROXINE SODIUM 125 MCG TABLET PO SCH (06:41)
[2019-04-02] MEDS: FERROUS SULFATE 325 MG EC TABLET PO SCH ×2 (06:42→17:24)
[2019-04-02 09:00] VITALS: BP 107/69
[2019-04-02] MEDS: QUEtiapine FUMARATE 200 MG TABLET PO SCH ×2 (09:48→21:02)
[2019-04-02] MEDS: FLUoxetine HCL 20 MG CAPSULE PO SCH (09:48)
[2019-04-02] MEDS: LORATADINE 10 MG TABLET PO SCH (09:49)
[2019-04-02] MEDS: MULTIVITAMINS WITH MINERALS, THERAPEUTIC TABLET PO SCH (09:49)
[2019-04-02] MEDS: MAGNESIUM OXIDE 400 MG TABLET PO SCH ×2 (09:49→17:24)
[2019-04-02] MEDS: OMEPRAZOLE 20 MG CAPSULE PO SCH (09:49)
[2019-04-02] MEDS: DIVALPROEX SODIUM 500 MG DR TABLET PO SCH ×2 (09:49→21:03)
[2019-04-02] MEDS: TOPIRAMATE 100 MG TABLET PO SCH ×3 (09:50→17:24)
[2019-04-02] MEDS: LevETIRAcetam 250 MG TABLET PO SCH ×2 (09:50→17:24)
[2019-04-02] MEDS: ASPIRIN 81 MG EC TABLET PO SCH (09:50)
[2019-04-02] MEDS: CHLORHEXIDINE GLUCONATE 4% 118 ML TOPICAL LIQUID TP SCH (09:50)
[2019-04-02] MEDS: ASCORBIC ACID 500 MG TABLET PO SCH (09:50)
[2019-04-02] MEDS: OXYBUTYNIN CHLORIDE 5 MG ER TABLET PO SCH (09:51)
[2019-04-02] MEDS: DOCUSATE SODIUM 100 MG CAPSULE PO SCH (09:51)
[2019-04-02 16:06] VITALS: BP 105/77
[2019-04-02] MEDS: HALOPERIDOL 10 MG TABLET PO SCH (21:02)
[2019-04-03] MEDS: FERROUS SULFATE 325 MG EC TABLET PO SCH ×2 (06:42→17:24)
[2019-04-03] MEDS: LEVOTHYROXINE SODIUM 125 MCG TABLET PO SCH (06:42)
[2019-04-03 08:00] VITALS: BP 133/99
[2019-04-03] MEDS: DIVALPROEX SODIUM 500 MG DR TABLET PO SCH ×2 (10:21→20:19)
[2019-04-03] MEDS: QUEtiapine FUMARATE 200 MG TABLET PO SCH ×2 (10:21→20:18)
[2019-04-03] MEDS: OXYBUTYNIN CHLORIDE 5 MG ER TABLET PO SCH (10:21)
[2019-04-03] MEDS: ASPIRIN 81 MG EC TABLET PO SCH (10:22)
[2019-04-03] MEDS: LORATADINE 10 MG TABLET PO SCH (10:22)
[2019-04-03] MEDS: LevETIRAcetam 250 MG TABLET PO SCH ×2 (10:22→17:24)
[2019-04-03] MEDS: OMEPRAZOLE 20 MG CAPSULE PO SCH (10:22)
[2019-04-03] MEDS: TOPIRAMATE 100 MG TABLET PO SCH ×3 (10:22→17:25)
[2019-04-03] MEDS: HALOPERIDOL 5 MG TABLET PO PRN (10:22)
[2019-04-03] MEDS: FLUoxetine HCL 20 MG CAPSULE PO SCH (10:22)
[2019-04-03] MEDS: MAGNESIUM OXIDE 400 MG TABLET PO SCH ×2 (10:22→17:24)
[2019-04-03] MEDS: DOCUSATE SODIUM 100 MG CAPSULE PO SCH (10:22)
[2019-04-03] MEDS: ASCORBIC ACID 500 MG TABLET PO SCH (10:22)
[2019-04-03] MEDS: MULTIVITAMINS WITH MINERALS, THERAPEUTIC TABLET PO SCH (10:22)
[2019-04-03] MEDS: CHLORHEXIDINE GLUCONATE 4% 118 ML TOPICAL LIQUID TP SCH (10:26)
[2019-04-03] MEDS: HALOPERIDOL 10 MG TABLET PO SCH (20:19)
[2019-04-04] MEDS: LEVOTHYROXINE SODIUM 125 MCG TABLET PO SCH (07:00)
[2019-04-04] MEDS: FERROUS SULFATE 325 MG EC TABLET PO SCH ×2 (07:01→17:42)
[2019-04-04] MEDS: FLUoxetine HCL 20 MG CAPSULE PO SCH (08:36)
[2019-04-04] MEDS: QUEtiapine FUMARATE 200 MG TABLET PO SCH ×2 (08:36→20:22)
[2019-04-04] MEDS: DIVALPROEX SODIUM 500 MG DR TABLET PO SCH ×2 (08:36→20:22)
[2019-04-04] MEDS: DOCUSATE SODIUM 100 MG CAPSULE PO SCH (08:37)
[2019-04-04] MEDS: ASPIRIN 81 MG EC TABLET PO SCH (08:37)
[2019-04-04] MEDS: MAGNESIUM OXIDE 400 MG TABLET PO SCH ×2 (08:37→17:42)
[2019-04-04] MEDS: LevETIRAcetam 250 MG TABLET PO SCH ×2 (08:37→17:41)
[2019-04-04] MEDS: ASCORBIC ACID 500 MG TABLET PO SCH (08:37)
[2019-04-04] MEDS: LORATADINE 10 MG TABLET PO SCH (08:37)
[2019-04-04] MEDS: OXYBUTYNIN CHLORIDE 5 MG ER TABLET PO SCH (08:37)
[2019-04-04] MEDS: MULTIVITAMINS WITH MINERALS, THERAPEUTIC TABLET PO SCH (08:37)
[2019-04-04] MEDS: OMEPRAZOLE 20 MG CAPSULE PO SCH (08:37)
[2019-04-04] MEDS: TOPIRAMATE 100 MG TABLET PO SCH ×3 (08:38→17:42)
[2019-04-04] MEDS: CHLORHEXIDINE GLUCONATE 4% 118 ML TOPICAL LIQUID TP SCH (08:38)
[2019-04-04] MEDS: HALOPERIDOL 10 MG TABLET PO SCH (20:21)
[2019-04-05] MEDS: LEVOTHYROXINE SODIUM 125 MCG TABLET PO SCH (06:48)
[2019-04-05] MEDS: FERROUS SULFATE 325 MG EC TABLET PO SCH ×2 (06:49→18:07)
[2019-04-05] MEDS: CHLORHEXIDINE GLUCONATE 4% 118 ML TOPICAL LIQUID TP SCH (07:43)
[2019-04-05] MEDS: DOCUSATE SODIUM 100 MG CAPSULE PO SCH (07:44)
[2019-04-05] MEDS: LORATADINE 10 MG TABLET PO SCH (07:44)
[2019-04-05] MEDS: MULTIVITAMINS WITH MINERALS, THERAPEUTIC TABLET PO SCH (07:44)
[2019-04-05] MEDS: FLUoxetine HCL 20 MG CAPSULE PO SCH (07:44)
[2019-04-05] MEDS: DIVALPROEX SODIUM 500 MG DR TABLET PO SCH ×2 (07:44→21:25)
[2019-04-05] MEDS: OMEPRAZOLE 20 MG CAPSULE PO SCH (07:44)
[2019-04-05] MEDS: QUEtiapine FUMARATE 200 MG TABLET PO SCH ×2 (07:44→21:26)
[2019-04-05] MEDS: MAGNESIUM OXIDE 400 MG TABLET PO SCH ×2 (07:44→18:07)
[2019-04-05] MEDS: ASPIRIN 81 MG EC TABLET PO SCH (07:45)
[2019-04-05] MEDS: LevETIRAcetam 250 MG TABLET PO SCH ×2 (07:45→18:07)
[2019-04-05] MEDS: ASCORBIC ACID 500 MG TABLET PO SCH (07:45)
[2019-04-05] MEDS: OXYBUTYNIN CHLORIDE 5 MG ER TABLET PO SCH (07:45)
[2019-04-05] MEDS: TOPIRAMATE 100 MG TABLET PO SCH ×3 (07:45→18:07)
[2019-04-05] MEDS: HALOPERIDOL 5 MG TABLET PO PRN (08:18)
[2019-04-05] MEDS: HALOPERIDOL 10 MG TABLET PO SCH (21:25)
[2019-04-06] MEDS: FERROUS SULFATE 325 MG EC TABLET PO SCH ×2 (06:45→18:00)
[2019-04-06] MEDS: LEVOTHYROXINE SODIUM 125 MCG TABLET PO SCH (06:45)
[2019-04-06] MEDS: MULTIVITAMINS WITH MINERALS, THERAPEUTIC TABLET PO SCH (08:13)
[2019-04-06] MEDS: DIVALPROEX SODIUM 500 MG DR TABLET PO SCH ×2 (08:13→20:41)
[2019-04-06] MEDS: QUEtiapine FUMARATE 200 MG TABLET PO SCH ×2 (08:13→20:41)
[2019-04-06] MEDS: MAGNESIUM OXIDE 400 MG TABLET PO SCH ×2 (08:14→18:00)
[2019-04-06] MEDS: DOCUSATE SODIUM 100 MG CAPSULE PO SCH (08:15)
[2019-04-06] MEDS: LORATADINE 10 MG TABLET PO SCH (08:15)
[2019-04-06] MEDS: FLUoxetine HCL 20 MG CAPSULE PO SCH (08:15)
[2019-04-06] MEDS: OMEPRAZOLE 20 MG CAPSULE PO SCH (08:15)
[2019-04-06] MEDS: CHLORHEXIDINE GLUCONATE 4% 118 ML TOPICAL LIQUID TP SCH (08:16)
[2019-04-06] MEDS: LevETIRAcetam 250 MG TABLET PO SCH ×2 (08:16→18:00)
[2019-04-06] MEDS: OXYBUTYNIN CHLORIDE 5 MG ER TABLET PO SCH (08:16)
[2019-04-06] MEDS: ASPIRIN 81 MG EC TABLET PO SCH (08:16)
[2019-04-06] MEDS: ASCORBIC ACID 500 MG TABLET PO SCH (08:16)
[2019-04-06] MEDS: TOPIRAMATE 100 MG TABLET PO SCH ×3 (08:16→18:00)
[2019-04-06 14:27] VITALS: BP 103/31
[2019-04-06 16:20] VITALS: BP 107/79
[2019-04-06] MEDS: HALOPERIDOL 10 MG TABLET PO SCH (20:41)
[2019-04-07] MEDS: LEVOTHYROXINE SODIUM 125 MCG TABLET PO SCH (06:48)
[2019-04-07] MEDS: FERROUS SULFATE 325 MG EC TABLET PO SCH ×2 (06:48→18:01)
[2019-04-07] MEDS: LORATADINE 10 MG TABLET PO SCH (08:06)
[2019-04-07] MEDS: OMEPRAZOLE 20 MG CAPSULE PO SCH (08:06)
[2019-04-07] MEDS: MAGNESIUM OXIDE 400 MG TABLET PO SCH ×2 (08:06→18:02)
[2019-04-07] MEDS: MULTIVITAMINS WITH MINERALS, THERAPEUTIC TABLET PO SCH (08:06)
[2019-04-07] MEDS: DIVALPROEX SODIUM 500 MG DR TABLET PO SCH ×2 (08:06→20:19)
[2019-04-07] MEDS: ASPIRIN 81 MG EC TABLET PO SCH (08:06)
[2019-04-07] MEDS: FLUoxetine HCL 20 MG CAPSULE PO SCH (08:07)
[2019-04-07] MEDS: DOCUSATE SODIUM 100 MG CAPSULE PO SCH (08:07)
[2019-04-07] MEDS: TOPIRAMATE 100 MG TABLET PO SCH ×3 (08:08→18:01)
[2019-04-07] MEDS: QUEtiapine FUMARATE 200 MG TABLET PO SCH ×2 (08:08→20:20)
[2019-04-07] MEDS: ASCORBIC ACID 500 MG TABLET PO SCH (08:08)
[2019-04-07] MEDS: CHLORHEXIDINE GLUCONATE 4% 118 ML TOPICAL LIQUID TP SCH (08:09)
[2019-04-07] MEDS: LevETIRAcetam 250 MG TABLET PO SCH ×2 (08:09→18:02)
[2019-04-07] MEDS: OXYBUTYNIN CHLORIDE 5 MG ER TABLET PO SCH (08:09)
[2019-04-07 16:02] VITALS: BP 107/72
[2019-04-07] MEDS: HALOPERIDOL 10 MG TABLET PO SCH (20:19)
[2019-04-08] MEDS: LEVOTHYROXINE SODIUM 125 MCG TABLET PO SCH (06:14)
[2019-04-08] MEDS: FERROUS SULFATE 325 MG EC TABLET PO SCH ×2 (06:31→16:54)
[2019-04-08] MEDS: FLUoxetine HCL 20 MG CAPSULE PO SCH (08:37)
[2019-04-08] MEDS: DIVALPROEX SODIUM 500 MG DR TABLET PO SCH ×2 (08:38→20:07)
[2019-04-08] MEDS: ASPIRIN 81 MG EC TABLET PO SCH (08:38)
[2019-04-08] MEDS: TOPIRAMATE 100 MG TABLET PO SCH ×3 (08:38→16:54)
[2019-04-08] MEDS: QUEtiapine FUMARATE 200 MG TABLET PO SCH ×2 (08:38→20:07)
[2019-04-08] MEDS: MAGNESIUM OXIDE 400 MG TABLET PO SCH ×2 (08:38→16:54)
[2019-04-08] MEDS: OXYBUTYNIN CHLORIDE 5 MG ER TABLET PO SCH (08:39)
[2019-04-08] MEDS: MULTIVITAMINS WITH MINERALS, THERAPEUTIC TABLET PO SCH (08:39)
[2019-04-08] MEDS: LORATADINE 10 MG TABLET PO SCH (08:39)
[2019-04-08] MEDS: ASCORBIC ACID 500 MG TABLET PO SCH (08:39)
[2019-04-08] MEDS: LevETIRAcetam 250 MG TABLET PO SCH ×2 (08:39→16:53)
[2019-04-08] MEDS: OMEPRAZOLE 20 MG CAPSULE PO SCH (08:39)
[2019-04-08] MEDS: DOCUSATE SODIUM 100 MG CAPSULE PO SCH (08:39)
[2019-04-08] MEDS: CHLORHEXIDINE GLUCONATE 4% 118 ML TOPICAL LIQUID TP SCH (08:40)
[2019-04-08] MEDS: HALOPERIDOL 10 MG TABLET PO SCH (20:07)
[2019-04-09] MEDS: FERROUS SULFATE 325 MG EC TABLET PO SCH ×2 (06:50→16:52)
[2019-04-09] MEDS: LEVOTHYROXINE SODIUM 125 MCG TABLET PO SCH (06:50)
[2019-04-09] MEDS: ASCORBIC ACID 500 MG TABLET PO SCH (09:04)
[2019-04-09] MEDS: LevETIRAcetam 250 MG TABLET PO SCH ×2 (09:04→16:53)
[2019-04-09] MEDS: DOCUSATE SODIUM 100 MG CAPSULE PO SCH (09:04)
[2019-04-09] MEDS: FLUoxetine HCL 20 MG CAPSULE PO SCH (09:04)
[2019-04-09] MEDS: QUEtiapine FUMARATE 200 MG TABLET PO SCH ×2 (09:04→20:57)
[2019-04-09] MEDS: OMEPRAZOLE 20 MG CAPSULE PO SCH (09:04)
[2019-04-09] MEDS: MAGNESIUM OXIDE 400 MG TABLET PO SCH ×2 (09:04→16:53)
[2019-04-09] MEDS: LORATADINE 10 MG TABLET PO SCH (09:04)
[2019-04-09] MEDS: MULTIVITAMINS WITH MINERALS, THERAPEUTIC TABLET PO SCH (09:04)
[2019-04-09] MEDS: TOPIRAMATE 100 MG TABLET PO SCH ×3 (09:05→16:52)
[2019-04-09] MEDS: DIVALPROEX SODIUM 500 MG DR TABLET PO SCH ×2 (09:05→20:57)
[2019-04-09] MEDS: HALOPERIDOL 5 MG TABLET PO PRN (09:05)
[2019-04-09] MEDS: OXYBUTYNIN CHLORIDE 5 MG ER TABLET PO SCH (09:05)
[2019-04-09] MEDS: ASPIRIN 81 MG EC TABLET PO SCH (09:05)
[2019-04-09] MEDS: CHLORHEXIDINE GLUCONATE 4% 118 ML TOPICAL LIQUID TP SCH (09:58)
[2019-04-09 10:50] VITALS: BP 140/76
[2019-04-09 17:46] VITALS: BP 130/78
[2019-04-09] MEDS: HALOPERIDOL 10 MG TABLET PO SCH (20:57)
[2019-04-10] MEDS: LEVOTHYROXINE SODIUM 125 MCG TABLET PO SCH (06:54)
[2019-04-10] MEDS: FERROUS SULFATE 325 MG EC TABLET PO SCH ×2 (06:54→17:09)
[2019-04-10] MEDS: DIVALPROEX SODIUM 500 MG DR TABLET PO SCH ×2 (08:22→20:25)
[2019-04-10] MEDS: ASCORBIC ACID 500 MG TABLET PO SCH (08:22)
[2019-04-10] MEDS: LevETIRAcetam 250 MG TABLET PO SCH ×2 (08:22→17:09)
[2019-04-10] MEDS: TOPIRAMATE 100 MG TABLET PO SCH ×3 (08:22→17:09)
[2019-04-10] MEDS: ASPIRIN 81 MG EC TABLET PO SCH (08:22)
[2019-04-10] MEDS: OXYBUTYNIN CHLORIDE 5 MG ER TABLET PO SCH (08:22)
[2019-04-10] MEDS: QUEtiapine FUMARATE 200 MG TABLET PO SCH ×2 (08:23→20:28)
[2019-04-10] MEDS: LORATADINE 10 MG TABLET PO SCH (08:23)
[2019-04-10] MEDS: OMEPRAZOLE 20 MG CAPSULE PO SCH (08:23)
[2019-04-10] MEDS: MULTIVITAMINS WITH MINERALS, THERAPEUTIC TABLET PO SCH (08:23)
[2019-04-10] MEDS: FLUoxetine HCL 20 MG CAPSULE PO SCH (08:23)
[2019-04-10] MEDS: HALOPERIDOL 5 MG TABLET PO PRN (08:23)
[2019-04-10] MEDS: MAGNESIUM OXIDE 400 MG TABLET PO SCH ×2 (08:23→17:09)
[2019-04-10] MEDS: DOCUSATE SODIUM 100 MG CAPSULE PO SCH (08:24)
[2019-04-10] MEDS: CHLORHEXIDINE GLUCONATE 4% 118 ML TOPICAL LIQUID TP SCH (08:24)
[2019-04-10] MEDS: HALOPERIDOL 10 MG TABLET PO SCH (20:28)
[2019-04-11] MEDS ORDERED: MAGNESIUM HYDROXIDE SUSPENSION 30 ML UDCUP PO PRN (08:00)
[2019-04-11] MEDS ORDERED: ACETAMINOPHEN 325 MG TABLET PO PRN (08:00)
[2019-04-11] MEDS ORDERED: IBUPROFEN 600 MG TABLET PO PRN (08:00)
[2019-04-11] MEDS ORDERED: ONDANSETRON HCL 4 MG TABLET PO PRN (08:00)
[2019-04-11] MEDS ORDERED: BENZOCAINE/MENTHOL LOZENGE PO PRN (08:00)
[2019-04-11] MEDS ORDERED: ALBUTEROL SULFATE HFA 90 MCG/PUFF 8 GM INHALER IH PRN (08:00)
[2019-04-11] MEDS ORDERED: MAG HYDROX/AL HYDROX/SIMETH ES 30 ML SUSPENSION UDCUP PO PRN (08:15)
[2019-04-11] MEDS ORDERED: LOPERAMIDE HCL 2 MG CAPSULE PO PRN (08:15)
[2019-04-11] MEDS: LevETIRAcetam 250 MG TABLET PO SCH ×2 (08:39→17:51)
[2019-04-11] MEDS: TOPIRAMATE 100 MG TABLET PO SCH ×3 (08:39→17:51)
[2019-04-11] MEDS: OXYBUTYNIN CHLORIDE 5 MG ER TABLET PO SCH (08:39)
[2019-04-11] MEDS: VALPROIC ACID 250 MG CAPSULE PO SCH ×2 (08:40→21:00)
[2019-04-11] MEDS: LEVOTHYROXINE SODIUM 125 MCG TABLET PO SCH (08:41)
[2019-04-11] MEDS: FERROUS SULFATE 325 MG EC TABLET PO SCH ×2 (08:46→17:51)
[2019-04-11] MEDS: LORATADINE 10 MG TABLET PO SCH (08:46)
[2019-04-11] MEDS: DOCUSATE SODIUM 100 MG CAPSULE PO SCH (08:46)
[2019-04-11] MEDS: MAGNESIUM OXIDE 400 MG TABLET PO SCH ×2 (08:47→17:51)
[2019-04-11] MEDS: ASPIRIN 81 MG EC TABLET PO SCH (08:47)
[2019-04-11] MEDS: FLUoxetine HCL 20 MG CAPSULE PO SCH (08:48)
[2019-04-11] MEDS: OMEPRAZOLE 20 MG CAPSULE PO SCH (08:48)
[2019-04-11] MEDS: QUEtiapine FUMARATE 200 MG TABLET PO SCH ×2 (08:48→21:00)
[2019-04-11] MEDS: MULTIVITAMINS WITH MINERALS, THERAPEUTIC TABLET PO SCH (08:48)
[2019-04-11] MEDS: HALOPERIDOL 5 MG TABLET PO PRN (08:49)
[2019-04-11] MEDS: ASCORBIC ACID 500 MG TABLET PO SCH (08:49)
[2019-04-11] MEDS: CHLORHEXIDINE GLUCONATE 4% 118 ML TOPICAL LIQUID TP SCH (08:49)
[2019-04-11] MEDS ORDERED: NICOTINE 14 MG/24 HOUR PATCH TD SCH (09:00)
[2019-04-11 09:16] VITALS: BP 124/82
[2019-04-11 16:09] VITALS: BP 119/78
[2019-04-11] MEDS: HALOPERIDOL 10 MG TABLET PO SCH (21:00)
[2019-04-12] MEDS: LEVOTHYROXINE SODIUM 125 MCG TABLET PO SCH (06:52)
[2019-04-12] MEDS: FERROUS SULFATE 325 MG EC TABLET PO SCH ×3 (06:52→17:59)
[2019-04-12] MEDS: ASPIRIN 81 MG EC TABLET PO SCH (08:38)
[2019-04-12] MEDS: FLUoxetine HCL 20 MG CAPSULE PO SCH (08:38)
[2019-04-12] MEDS: ASCORBIC ACID 500 MG TABLET PO SCH (08:39)
[2019-04-12] MEDS: DOCUSATE SODIUM 100 MG CAPSULE PO SCH (08:39)
[2019-04-12] MEDS: MULTIVITAMINS WITH MINERALS, THERAPEUTIC TABLET PO SCH (08:39)
[2019-04-12] MEDS: LORATADINE 10 MG TABLET PO SCH (08:39)
[2019-04-12] MEDS: OXYBUTYNIN CHLORIDE 5 MG ER TABLET PO SCH (08:39)
[2019-04-12] MEDS: TOPIRAMATE 100 MG TABLET PO SCH ×3 (08:39→17:59)
[2019-04-12] MEDS: LevETIRAcetam 250 MG TABLET PO SCH ×2 (08:39→17:59)
[2019-04-12] MEDS: MAGNESIUM OXIDE 400 MG TABLET PO SCH ×2 (08:39→17:59)
[2019-04-12] MEDS: HALOPERIDOL 5 MG TABLET PO PRN (08:39)
[2019-04-12] MEDS: VALPROIC ACID 250 MG CAPSULE PO SCH ×2 (08:39→21:04)
[2019-04-12] MEDS: QUEtiapine FUMARATE 200 MG TABLET PO SCH ×2 (08:41→21:04)
[2019-04-12] MEDS: OMEPRAZOLE 20 MG CAPSULE PO SCH (08:43)
[2019-04-12] MEDS: CHLORHEXIDINE GLUCONATE 4% 118 ML TOPICAL LIQUID TP SCH (08:43)
[2019-04-12 16:15] VITALS: BP 139/86
[2019-04-12] MEDS: HALOPERIDOL 10 MG TABLET PO SCH (21:04)
[2019-04-13] MEDS: HALOPERIDOL 5 MG TABLET PO PRN (04:04)
[2019-04-13] MEDS: LEVOTHYROXINE SODIUM 125 MCG TABLET PO SCH (07:00)
[2019-04-13] MEDS: FERROUS SULFATE 325 MG EC TABLET PO SCH ×2 (07:14→17:53)
[2019-04-13] MEDS: MULTIVITAMINS WITH MINERALS, THERAPEUTIC TABLET PO SCH (07:54)
[2019-04-13] MEDS: OMEPRAZOLE 20 MG CAPSULE PO SCH (07:54)
[2019-04-13] MEDS: LORATADINE 10 MG TABLET PO SCH (07:55)
[2019-04-13] MEDS: ASPIRIN 81 MG EC TABLET PO SCH (07:55)
[2019-04-13] MEDS: QUEtiapine FUMARATE 200 MG TABLET PO SCH ×3 (07:55→22:00)
[2019-04-13] MEDS: LevETIRAcetam 250 MG TABLET PO SCH ×2 (07:55→17:53)
[2019-04-13] MEDS: MAGNESIUM OXIDE 400 MG TABLET PO SCH ×2 (07:55→17:53)
[2019-04-13] MEDS: FLUoxetine HCL 20 MG CAPSULE PO SCH (07:55)
[2019-04-13] MEDS: CHLORHEXIDINE GLUCONATE 4% 118 ML TOPICAL LIQUID TP SCH (07:56)
[2019-04-13] MEDS: ASCORBIC ACID 500 MG TABLET PO SCH (07:56)
[2019-04-13] MEDS: DOCUSATE SODIUM 100 MG CAPSULE PO SCH (07:56)
[2019-04-13] MEDS: VALPROIC ACID 250 MG CAPSULE PO SCH ×3 (07:57→22:00)
[2019-04-13] MEDS: TOPIRAMATE 100 MG TABLET PO SCH ×3 (07:57→17:53)
[2019-04-13] MEDS: OXYBUTYNIN CHLORIDE 5 MG ER TABLET PO SCH (07:59)
[2019-04-13] MEDS: HALOPERIDOL 10 MG TABLET PO SCH ×2 (21:00→22:00)
[2019-04-14 06:28] LABS: BASOPHILS % (AUTO) 0.3 % (0.0-2.0); EOSINOPHILS % (AUTO) 0.5 % (1.0-6.0); HEMATOCRIT 33.6 % (36-46); HEMOGLOBIN 11.3 g/dL (12.0-16.0); LYMPHOCYTES # (AUTO) 3.3 K/uL (1.0-4.8); LYMPHOCYTES % (AUTO) 59.6 % (22.0-44.0); MEAN CORPUSCULAR HEMOGLOBIN 33.4 pg (26.0-34.0); MEAN CORPUSCULAR HGB CONC 33.7 G/dL (31.0-37.0); MEAN CORPUSCULAR VOLUME 99 fL (80-100); MONOCYTES # (AUTO) 0.5 K/uL (0.1-1.0); MONOCYTES % (AUTO) 9.1 % (2.0-9.0); NEUTROPHILS # (AUTO) 1.7 K/uL (1.8-7.7); NEUTROPHILS % (AUTO) 30.5 % (40.0-70.0); PLATELET COUNT (AUTO) 113 K/uL (150-450); RED CELL DISTRIBUTION WIDTH 14.5 % (11.5-14.5)
[2019-04-14 06:47] LABS: HEMOGLOBIN A1C 5.6 % (4.5-6.2)
[2019-04-14] MEDS: LEVOTHYROXINE SODIUM 125 MCG TABLET PO SCH (07:00)
[2019-04-14] MEDS: FERROUS SULFATE 325 MG EC TABLET PO SCH ×2 (07:00→17:40)
[2019-04-14 07:23] LABS: ANION GAP 5 mmol/L (8-16); CALCIUM, TOTAL 8.7 mg/dL (8.8-10.5); CARBON DIOXIDE 27 mmol/L (22-29); CHLORIDE 108 mmol/L (98-107); CHOLESTEROL 162 mg/dL (131-200); CREATININE 0.57 mg/dL (0.60-1.30); GLOMERULAR FILTR. RATE CALC > 60 mL/min (>60); GLUCOSE,RANDOM 118 mg/dL (70-110); HDL CHOLESTEROL 41 mg/dL (40-60); LDL CHOL (CALC.) 93 mg/dL (0-130); PHOSPHORUS 3.9 mg/dL (2.5-4.9); POTASSIUM 4.1 mmol/L (3.5-5.1); SODIUM SERUM 140 mmol/L (136-145); THYROID STIMULATING HORMONE 3.24 uIU/mL (0.36-3.74); TRIGLYCERIDES 138 mg/dL (15-150); UREA NITROGEN, BLOOD 13 mg/dL (7-18); VALPROIC ACID 87 mcg/mL (50-100)
[2019-04-14] MEDS: HALOPERIDOL 5 MG TABLET PO PRN (09:30)
[2019-04-14] MEDS: ASCORBIC ACID 500 MG TABLET PO SCH (09:30)
[2019-04-14] MEDS: VALPROIC ACID 250 MG CAPSULE PO SCH ×2 (09:30→20:51)
[2019-04-14] MEDS: TOPIRAMATE 100 MG TABLET PO SCH ×3 (09:30→17:40)
[2019-04-14] MEDS: DOCUSATE SODIUM 100 MG CAPSULE PO SCH (09:30)
[2019-04-14] MEDS: OMEPRAZOLE 20 MG CAPSULE PO SCH (09:31)
[2019-04-14] MEDS: OXYBUTYNIN CHLORIDE 5 MG ER TABLET PO SCH (09:31)
[2019-04-14] MEDS: QUEtiapine FUMARATE 200 MG TABLET PO SCH ×2 (09:31→20:51)
[2019-04-14] MEDS: ASPIRIN 81 MG EC TABLET PO SCH (09:31)
[2019-04-14] MEDS: LevETIRAcetam 250 MG TABLET PO SCH ×2 (09:31→17:40)
[2019-04-14] MEDS: FLUoxetine HCL 20 MG CAPSULE PO SCH (09:31)
[2019-04-14] MEDS: MULTIVITAMINS WITH MINERALS, THERAPEUTIC TABLET PO SCH (09:31)
[2019-04-14] MEDS: LORATADINE 10 MG TABLET PO SCH (09:32)
[2019-04-14] MEDS: MAGNESIUM OXIDE 400 MG TABLET PO SCH ×3 (09:32→17:40)
[2019-04-14 11:00] VITALS: BP 116/77
[2019-04-14] MEDS: CHLORHEXIDINE GLUCONATE 4% 118 ML TOPICAL LIQUID TP SCH (12:48)
[2019-04-14 17:46] VITALS: BP 95/47
[2019-04-14] MEDS: HALOPERIDOL 10 MG TABLET PO SCH (20:51)
[2019-04-15] MEDS: LEVOTHYROXINE SODIUM 100 MCG TABLET PO SCH (06:25)
[2019-04-15] MEDS: FERROUS SULFATE 325 MG EC TABLET PO SCH ×2 (06:33→16:22)
[2019-04-15 08:00] VITALS: BP 115/82
[2019-04-15] MEDS: HALOPERIDOL 5 MG TABLET PO PRN (08:07)
[2019-04-15] MEDS: LevETIRAcetam 250 MG TABLET PO SCH ×2 (08:07→16:23)
[2019-04-15] MEDS: QUEtiapine FUMARATE 200 MG TABLET PO SCH ×2 (08:07→20:24)
[2019-04-15] MEDS: MULTIVITAMINS WITH MINERALS, THERAPEUTIC TABLET PO SCH (08:07)
[2019-04-15] MEDS: MAGNESIUM OXIDE 400 MG TABLET PO SCH ×3 (08:07→16:22)
[2019-04-15] MEDS: FLUoxetine HCL 20 MG CAPSULE PO SCH (08:08)
[2019-04-15] MEDS: DOCUSATE SODIUM 100 MG CAPSULE PO SCH (08:08)
[2019-04-15] MEDS: TOPIRAMATE 100 MG TABLET PO SCH ×3 (08:08→16:22)
[2019-04-15] MEDS: LORATADINE 10 MG TABLET PO SCH (08:08)
[2019-04-15] MEDS: OXYBUTYNIN CHLORIDE 5 MG ER TABLET PO SCH (08:08)
[2019-04-15] MEDS: OMEPRAZOLE 20 MG CAPSULE PO SCH (08:08)
[2019-04-15] MEDS: ASPIRIN 81 MG EC TABLET PO SCH (08:08)
[2019-04-15] MEDS: CHLORHEXIDINE GLUCONATE 4% 118 ML TOPICAL LIQUID TP SCH (08:09)
[2019-04-15] MEDS: VALPROIC ACID 250 MG CAPSULE PO SCH ×2 (08:09→20:23)
[2019-04-15] MEDS: ASCORBIC ACID 500 MG TABLET PO SCH (08:09)
[2019-04-15 16:02] VITALS: BP 117/78
[2019-04-15] MEDS: HALOPERIDOL 10 MG TABLET PO SCH (20:24)
[2019-04-16] MEDS: CHLORHEXIDINE GLUCONATE 4% 118 ML TOPICAL LIQUID TP SCH (05:14)
[2019-04-16 05:30] VITALS: BP 118/85
[2019-04-16] MEDS: FERROUS SULFATE 325 MG EC TABLET PO SCH ×2 (06:38→17:45)
[2019-04-16] MEDS: LEVOTHYROXINE SODIUM 100 MCG TABLET PO SCH (06:38)
[2019-04-16] MEDS: MULTIVITAMINS WITH MINERALS, THERAPEUTIC TABLET PO SCH (08:01)
[2019-04-16] MEDS: FLUoxetine HCL 20 MG CAPSULE PO SCH (08:01)
[2019-04-16] MEDS: ASPIRIN 81 MG EC TABLET PO SCH (08:01)
[2019-04-16] MEDS: QUEtiapine FUMARATE 200 MG TABLET PO SCH ×2 (08:01→20:00)
[2019-04-16] MEDS: DOCUSATE SODIUM 100 MG CAPSULE PO SCH (08:01)
[2019-04-16] MEDS: OMEPRAZOLE 20 MG CAPSULE PO SCH (08:01)
[2019-04-16] MEDS: LORATADINE 10 MG TABLET PO SCH (08:01)
[2019-04-16] MEDS: MAGNESIUM OXIDE 400 MG TABLET PO SCH ×3 (08:01→16:37)
[2019-04-16] MEDS: VALPROIC ACID 250 MG CAPSULE PO SCH ×2 (08:02→20:01)
[2019-04-16] MEDS: OXYBUTYNIN CHLORIDE 5 MG ER TABLET PO SCH (08:02)
[2019-04-16] MEDS: LevETIRAcetam 250 MG TABLET PO SCH ×2 (08:02→16:35)
[2019-04-16] MEDS: TOPIRAMATE 100 MG TABLET PO SCH ×3 (08:02→16:37)
[2019-04-16] MEDS: ASCORBIC ACID 500 MG TABLET PO SCH (08:03)
[2019-04-16] MEDS: HALOPERIDOL 5 MG TABLET PO PRN (08:03)
[2019-04-16 16:00] VITALS: BP 122/86
[2019-04-16] MEDS: HALOPERIDOL 10 MG TABLET PO SCH (20:01)
[2019-04-17] MEDS: LEVOTHYROXINE SODIUM 100 MCG TABLET PO SCH (06:52)
[2019-04-17] MEDS: FERROUS SULFATE 325 MG EC TABLET PO SCH ×2 (06:53→17:51)
[2019-04-17] MEDS: QUEtiapine FUMARATE 200 MG TABLET PO SCH ×2 (07:58→20:17)
[2019-04-17] MEDS: ASPIRIN 81 MG EC TABLET PO SCH (07:58)
[2019-04-17] MEDS: FLUoxetine HCL 20 MG CAPSULE PO SCH (07:59)
[2019-04-17] MEDS: OMEPRAZOLE 20 MG CAPSULE PO SCH (07:59)
[2019-04-17] MEDS: LevETIRAcetam 250 MG TABLET PO SCH ×2 (08:00→17:51)
[2019-04-17] MEDS: MAGNESIUM OXIDE 400 MG TABLET PO SCH ×3 (08:00→17:51)
[2019-04-17] MEDS: OXYBUTYNIN CHLORIDE 5 MG ER TABLET PO SCH (08:00)
[2019-04-17] MEDS: DOCUSATE SODIUM 100 MG CAPSULE PO SCH (08:00)
[2019-04-17] MEDS: TOPIRAMATE 100 MG TABLET PO SCH ×3 (08:00→17:51)
[2019-04-17] MEDS: MULTIVITAMINS WITH MINERALS, THERAPEUTIC TABLET PO SCH (08:01)
[2019-04-17] MEDS: LORATADINE 10 MG TABLET PO SCH (08:01)
[2019-04-17] MEDS: ASCORBIC ACID 500 MG TABLET PO SCH (08:01)
[2019-04-17] MEDS: VALPROIC ACID 250 MG CAPSULE PO SCH ×2 (08:01→20:17)
[2019-04-17] MEDS: CHLORHEXIDINE GLUCONATE 4% 118 ML TOPICAL LIQUID TP SCH (08:13)
[2019-04-17] MEDS: HALOPERIDOL 10 MG TABLET PO SCH (20:17)
[2019-04-18] MEDS: LEVOTHYROXINE SODIUM 100 MCG TABLET PO SCH (06:38)
[2019-04-18] MEDS: FERROUS SULFATE 325 MG EC TABLET PO SCH ×2 (06:38→17:33)
[2019-04-18] MEDS: VALPROIC ACID 250 MG CAPSULE PO SCH ×2 (09:56→21:32)
[2019-04-18] MEDS: FLUoxetine HCL 20 MG CAPSULE PO SCH (09:56)
[2019-04-18] MEDS: OMEPRAZOLE 20 MG CAPSULE PO SCH (09:56)
[2019-04-18] MEDS: MAGNESIUM OXIDE 400 MG TABLET PO SCH ×3 (09:56→17:32)
[2019-04-18] MEDS: ASPIRIN 81 MG EC TABLET PO SCH (09:57)
[2019-04-18] MEDS: LORATADINE 10 MG TABLET PO SCH (09:57)
[2019-04-18] MEDS: MULTIVITAMINS WITH MINERALS, THERAPEUTIC TABLET PO SCH (09:57)
[2019-04-18] MEDS: OXYBUTYNIN CHLORIDE 5 MG ER TABLET PO SCH (09:57)
[2019-04-18] MEDS: QUEtiapine FUMARATE 200 MG TABLET PO SCH ×2 (09:57→21:31)
[2019-04-18] MEDS: LevETIRAcetam 250 MG TABLET PO SCH ×2 (09:57→17:32)
[2019-04-18] MEDS: TOPIRAMATE 100 MG TABLET PO SCH ×3 (09:57→17:32)
[2019-04-18] MEDS: ASCORBIC ACID 500 MG TABLET PO SCH (09:58)
[2019-04-18] MEDS: CHLORHEXIDINE GLUCONATE 4% 118 ML TOPICAL LIQUID TP SCH (09:58)
[2019-04-18] MEDS: DOCUSATE SODIUM 100 MG CAPSULE PO SCH (09:59)
[2019-04-18] MEDS: HALOPERIDOL 5 MG TABLET PO PRN (10:00)
[2019-04-18] MEDS: HALOPERIDOL 10 MG TABLET PO SCH (21:31)
[2019-04-19] MEDS: FERROUS SULFATE 325 MG EC TABLET PO SCH ×2 (06:41→16:49)
[2019-04-19] MEDS: LEVOTHYROXINE SODIUM 100 MCG TABLET PO SCH (06:41)
[2019-04-19] MEDS: HALOPERIDOL 5 MG TABLET PO PRN ×2 (08:18→16:49)
[2019-04-19] MEDS: LevETIRAcetam 250 MG TABLET PO SCH ×3 (08:18→16:50)
[2019-04-19] MEDS: OMEPRAZOLE 20 MG CAPSULE PO SCH ×2 (08:18→09:00)
[2019-04-19] MEDS: VALPROIC ACID 250 MG CAPSULE PO SCH ×3 (08:18→20:04)
[2019-04-19] MEDS: MAGNESIUM OXIDE 400 MG TABLET PO SCH ×4 (08:18→16:50)
[2019-04-19] MEDS: OXYBUTYNIN CHLORIDE 5 MG ER TABLET PO SCH ×2 (08:18→09:00)
[2019-04-19] MEDS: QUEtiapine FUMARATE 200 MG TABLET PO SCH ×3 (08:19→20:05)
[2019-04-19] MEDS: ASPIRIN 81 MG EC TABLET PO SCH ×2 (08:19→09:00)
[2019-04-19] MEDS: LORATADINE 10 MG TABLET PO SCH ×2 (08:19→09:00)
[2019-04-19] MEDS: FLUoxetine HCL 20 MG CAPSULE PO SCH ×2 (08:19→09:00)
[2019-04-19] MEDS: MULTIVITAMINS WITH MINERALS, THERAPEUTIC TABLET PO SCH ×2 (08:19→09:00)
[2019-04-19] MEDS: DOCUSATE SODIUM 100 MG CAPSULE PO SCH ×2 (08:30→09:00)
[2019-04-19] MEDS: TOPIRAMATE 100 MG TABLET PO SCH ×4 (08:30→16:49)
[2019-04-19] MEDS: CHLORHEXIDINE GLUCONATE 4% 118 ML TOPICAL LIQUID TP SCH (08:32)
[2019-04-19] MEDS: ASCORBIC ACID 500 MG TABLET PO SCH ×2 (08:32→09:00)
[2019-04-19 18:25] VITALS: BP 110/55
[2019-04-19] MEDS: HALOPERIDOL 10 MG TABLET PO SCH (20:05)
[2019-04-20] MEDS: FERROUS SULFATE 325 MG EC TABLET PO SCH ×2 (06:40→16:49)
[2019-04-20] MEDS: LEVOTHYROXINE SODIUM 100 MCG TABLET PO SCH (06:40)
[2019-04-20] MEDS: MAGNESIUM OXIDE 400 MG TABLET PO SCH ×3 (08:48→16:49)
[2019-04-20] MEDS: TOPIRAMATE 100 MG TABLET PO SCH ×3 (08:48→16:49)
[2019-04-20] MEDS: LORATADINE 10 MG TABLET PO SCH (08:48)
[2019-04-20] MEDS: ASPIRIN 81 MG EC TABLET PO SCH (08:48)
[2019-04-20] MEDS: FLUoxetine HCL 20 MG CAPSULE PO SCH (08:48)
[2019-04-20] MEDS: ASCORBIC ACID 500 MG TABLET PO SCH (08:49)
[2019-04-20] MEDS: MULTIVITAMINS WITH MINERALS, THERAPEUTIC TABLET PO SCH (08:49)
[2019-04-20] MEDS: OMEPRAZOLE 20 MG CAPSULE PO SCH (08:49)
[2019-04-20] MEDS: OXYBUTYNIN CHLORIDE 5 MG ER TABLET PO SCH (08:49)
[2019-04-20] MEDS: DOCUSATE SODIUM 100 MG CAPSULE PO SCH (08:49)
[2019-04-20] MEDS: LevETIRAcetam 250 MG TABLET PO SCH ×2 (08:49→16:49)
[2019-04-20] MEDS: QUEtiapine FUMARATE 200 MG TABLET PO SCH ×2 (08:50→20:53)
[2019-04-20] MEDS: VALPROIC ACID 250 MG CAPSULE PO SCH ×2 (08:50→20:54)
[2019-04-20] MEDS: CHLORHEXIDINE GLUCONATE 4% 118 ML TOPICAL LIQUID TP SCH (09:38)
[2019-04-20 16:30] VITALS: BP 121/81
[2019-04-20] MEDS: HALOPERIDOL 5 MG TABLET PO PRN (16:51)
[2019-04-20] MEDS: HALOPERIDOL 10 MG TABLET PO SCH (20:53)
[2019-04-21] MEDS: FERROUS SULFATE 325 MG EC TABLET PO SCH ×2 (06:49→17:09)
[2019-04-21] MEDS: LEVOTHYROXINE SODIUM 100 MCG TABLET PO SCH (06:49)
[2019-04-21] MEDS: QUEtiapine FUMARATE 200 MG TABLET PO SCH ×2 (09:49→21:10)
[2019-04-21] MEDS: OXYBUTYNIN CHLORIDE 5 MG ER TABLET PO SCH (09:49)
[2019-04-21] MEDS: ASCORBIC ACID 500 MG TABLET PO SCH (09:49)
[2019-04-21] MEDS: VALPROIC ACID 250 MG CAPSULE PO SCH ×2 (09:49→21:09)
[2019-04-21] MEDS: MULTIVITAMINS WITH MINERALS, THERAPEUTIC TABLET PO SCH (09:49)
[2019-04-21] MEDS: OMEPRAZOLE 20 MG CAPSULE PO SCH (09:49)
[2019-04-21] MEDS: FLUoxetine HCL 20 MG CAPSULE PO SCH (09:49)
[2019-04-21] MEDS: LevETIRAcetam 250 MG TABLET PO SCH ×2 (09:50→17:09)
[2019-04-21] MEDS: LORATADINE 10 MG TABLET PO SCH (09:50)
[2019-04-21] MEDS: DOCUSATE SODIUM 100 MG CAPSULE PO SCH (09:50)
[2019-04-21] MEDS: ASPIRIN 81 MG EC TABLET PO SCH (09:50)
[2019-04-21] MEDS: TOPIRAMATE 100 MG TABLET PO SCH ×3 (09:50→17:09)
[2019-04-21] MEDS: MAGNESIUM OXIDE 400 MG TABLET PO SCH ×3 (09:50→17:09)
[2019-04-21] MEDS: HALOPERIDOL 5 MG TABLET PO PRN (09:51)
[2019-04-21] MEDS: CHLORHEXIDINE GLUCONATE 4% 118 ML TOPICAL LIQUID TP SCH (09:52)
[2019-04-21 09:56] VITALS: BP 102/68
[2019-04-21] MEDS: HALOPERIDOL 10 MG TABLET PO SCH (21:10)
[2019-04-22] MEDS: FERROUS SULFATE 325 MG EC TABLET PO SCH ×2 (07:02→16:24)
[2019-04-22] MEDS: LEVOTHYROXINE SODIUM 100 MCG TABLET PO SCH (07:02)
[2019-04-22] MEDS: ASPIRIN 81 MG EC TABLET PO SCH (09:11)
[2019-04-22] MEDS: OMEPRAZOLE 20 MG CAPSULE PO SCH (09:11)
[2019-04-22] MEDS: HALOPERIDOL 5 MG TABLET PO PRN (09:11)
[2019-04-22] MEDS: VALPROIC ACID 250 MG CAPSULE PO SCH ×2 (09:11→20:06)
[2019-04-22] MEDS: FLUoxetine HCL 20 MG CAPSULE PO SCH (09:11)
[2019-04-22] MEDS: DOCUSATE SODIUM 100 MG CAPSULE PO SCH (09:12)
[2019-04-22] MEDS: QUEtiapine FUMARATE 200 MG TABLET PO SCH ×2 (09:12→20:07)
[2019-04-22] MEDS: ASCORBIC ACID 500 MG TABLET PO SCH (09:12)
[2019-04-22] MEDS: OXYBUTYNIN CHLORIDE 5 MG ER TABLET PO SCH (09:12)
[2019-04-22] MEDS: LevETIRAcetam 250 MG TABLET PO SCH ×2 (09:12→16:24)
[2019-04-22] MEDS: MAGNESIUM OXIDE 400 MG TABLET PO SCH ×3 (09:12→16:24)
[2019-04-22] MEDS: TOPIRAMATE 100 MG TABLET PO SCH ×3 (09:12→16:24)
[2019-04-22] MEDS: MULTIVITAMINS WITH MINERALS, THERAPEUTIC TABLET PO SCH (09:12)
[2019-04-22] MEDS: LORATADINE 10 MG TABLET PO SCH (09:12)
[2019-04-22] MEDS: CHLORHEXIDINE GLUCONATE 4% 118 ML TOPICAL LIQUID TP SCH (09:13)
[2019-04-22 09:36] VITALS: BP 114/42
[2019-04-22 16:01] VITALS: BP 87/48
[2019-04-22] MEDS: HALOPERIDOL 10 MG TABLET PO SCH (20:06)
[2019-04-23] MEDS: FERROUS SULFATE 325 MG EC TABLET PO SCH ×2 (06:47→16:18)
[2019-04-23] MEDS: LEVOTHYROXINE SODIUM 100 MCG TABLET PO SCH (06:47)
[2019-04-23] MEDS: LevETIRAcetam 250 MG TABLET PO SCH ×2 (09:00→16:17)
[2019-04-23] MEDS: QUEtiapine FUMARATE 200 MG TABLET PO SCH ×2 (09:00→20:18)
[2019-04-23] MEDS: OXYBUTYNIN CHLORIDE 5 MG ER TABLET PO SCH (09:00)
[2019-04-23] MEDS: MULTIVITAMINS WITH MINERALS, THERAPEUTIC TABLET PO SCH (09:00)
[2019-04-23] MEDS: ASPIRIN 81 MG EC TABLET PO SCH (09:00)
[2019-04-23] MEDS: VALPROIC ACID 250 MG CAPSULE PO SCH ×2 (09:00→20:19)
[2019-04-23] MEDS: FLUoxetine HCL 20 MG CAPSULE PO SCH (09:00)
[2019-04-23] MEDS: OMEPRAZOLE 20 MG CAPSULE PO SCH (09:00)
[2019-04-23] MEDS: ASCORBIC ACID 500 MG TABLET PO SCH (09:00)
[2019-04-23] MEDS: TOPIRAMATE 100 MG TABLET PO SCH ×3 (09:00→16:17)
[2019-04-23] MEDS: LORATADINE 10 MG TABLET PO SCH (09:00)
[2019-04-23] MEDS: MAGNESIUM OXIDE 400 MG TABLET PO SCH ×3 (09:00→16:17)
[2019-04-23] MEDS: DOCUSATE SODIUM 100 MG CAPSULE PO SCH (09:00)
[2019-04-23 12:22] VITALS: BP 113/90
[2019-04-23] MEDS: CHLORHEXIDINE GLUCONATE 4% 118 ML TOPICAL LIQUID TP SCH (13:23)
[2019-04-23] MEDS: HALOPERIDOL 5 MG TABLET PO PRN (13:24)
[2019-04-23 16:37] VITALS: BP 102/66
[2019-04-23] MEDS: HALOPERIDOL 10 MG TABLET PO SCH (20:19)
[2019-04-24 05:58] VITALS: BP 99/70
[2019-04-24] MEDS: FERROUS SULFATE 325 MG EC TABLET PO SCH ×2 (06:43→17:52)
[2019-04-24] MEDS: LEVOTHYROXINE SODIUM 100 MCG TABLET PO SCH (06:43)
[2019-04-24] MEDS: TOPIRAMATE 100 MG TABLET PO SCH ×3 (08:46→17:52)
[2019-04-24] MEDS: QUEtiapine FUMARATE 200 MG TABLET PO SCH ×2 (08:46→20:55)
[2019-04-24] MEDS: VALPROIC ACID 250 MG CAPSULE PO SCH ×2 (08:46→20:54)
[2019-04-24] MEDS: MULTIVITAMINS WITH MINERALS, THERAPEUTIC TABLET PO SCH (08:46)
[2019-04-24] MEDS: OXYBUTYNIN CHLORIDE 5 MG ER TABLET PO SCH (08:46)
[2019-04-24] MEDS: ASPIRIN 81 MG EC TABLET PO SCH (08:46)
[2019-04-24] MEDS: FLUoxetine HCL 20 MG CAPSULE PO SCH (08:47)
[2019-04-24] MEDS: ASCORBIC ACID 500 MG TABLET PO SCH (08:47)
[2019-04-24] MEDS: LORATADINE 10 MG TABLET PO SCH (08:47)
[2019-04-24] MEDS: MAGNESIUM OXIDE 400 MG TABLET PO SCH ×3 (08:47→17:53)
[2019-04-24] MEDS: OMEPRAZOLE 20 MG CAPSULE PO SCH (08:47)
[2019-04-24] MEDS: LevETIRAcetam 250 MG TABLET PO SCH ×2 (08:47→17:53)
[2019-04-24] MEDS: DOCUSATE SODIUM 100 MG CAPSULE PO SCH (08:47)
[2019-04-24] MEDS: CHLORHEXIDINE GLUCONATE 4% 118 ML TOPICAL LIQUID TP SCH (08:48)
[2019-04-24 08:55] VITALS: BP 103/76
[2019-04-24] MEDS: HALOPERIDOL 10 MG TABLET PO SCH (20:55)
[2019-04-25] MEDS: FERROUS SULFATE 325 MG EC TABLET PO SCH ×2 (07:12→17:11)
[2019-04-25] MEDS: LEVOTHYROXINE SODIUM 100 MCG TABLET PO SCH (07:12)
[2019-04-25 08:00] VITALS: BP 99/52
[2019-04-25] MEDS: QUEtiapine FUMARATE 200 MG TABLET PO SCH ×2 (08:12→20:47)
[2019-04-25] MEDS: LevETIRAcetam 250 MG TABLET PO SCH ×2 (08:13→17:11)
[2019-04-25] MEDS: OMEPRAZOLE 20 MG CAPSULE PO SCH (08:13)
[2019-04-25] MEDS: FLUoxetine HCL 20 MG CAPSULE PO SCH (08:13)
[2019-04-25] MEDS: TOPIRAMATE 100 MG TABLET PO SCH ×3 (08:13→17:11)
[2019-04-25] MEDS: MULTIVITAMINS WITH MINERALS, THERAPEUTIC TABLET PO SCH (08:13)
[2019-04-25] MEDS: VALPROIC ACID 250 MG CAPSULE PO SCH ×2 (08:13→20:47)
[2019-04-25] MEDS: MAGNESIUM OXIDE 400 MG TABLET PO SCH ×3 (08:13→17:11)
[2019-04-25] MEDS: ASCORBIC ACID 500 MG TABLET PO SCH (08:13)
[2019-04-25] MEDS: ASPIRIN 81 MG EC TABLET PO SCH (08:13)
[2019-04-25] MEDS: LORATADINE 10 MG TABLET PO SCH (08:14)
[2019-04-25] MEDS: OXYBUTYNIN CHLORIDE 5 MG ER TABLET PO SCH (08:14)
[2019-04-25] MEDS: DOCUSATE SODIUM 100 MG CAPSULE PO SCH (08:14)
[2019-04-25] MEDS: CHLORHEXIDINE GLUCONATE 4% 118 ML TOPICAL LIQUID TP SCH (09:07)
[2019-04-25 16:09] VITALS: BP 107/71
[2019-04-25] MEDS: HALOPERIDOL 10 MG TABLET PO SCH (20:46)
[2019-04-26] MEDS: LEVOTHYROXINE SODIUM 100 MCG TABLET PO SCH (06:46)
[2019-04-26] MEDS: FERROUS SULFATE 325 MG EC TABLET PO SCH ×2 (06:47→18:28)
[2019-04-26 08:06] VITALS: BP 105/72
[2019-04-26] MEDS: DOCUSATE SODIUM 100 MG CAPSULE PO SCH (08:24)
[2019-04-26] MEDS: OXYBUTYNIN CHLORIDE 5 MG ER TABLET PO SCH (08:25)
[2019-04-26] MEDS: ASCORBIC ACID 500 MG TABLET PO SCH (08:25)
[2019-04-26] MEDS: LORATADINE 10 MG TABLET PO SCH (08:25)
[2019-04-26] MEDS: TOPIRAMATE 100 MG TABLET PO SCH ×3 (08:25→16:33)
[2019-04-26] MEDS: OMEPRAZOLE 20 MG CAPSULE PO SCH (08:25)
[2019-04-26] MEDS: MAGNESIUM OXIDE 400 MG TABLET PO SCH ×3 (08:25→16:33)
[2019-04-26] MEDS: ASPIRIN 81 MG EC TABLET PO SCH (08:25)
[2019-04-26] MEDS: LevETIRAcetam 250 MG TABLET PO SCH ×2 (08:26→16:33)
[2019-04-26] MEDS: FLUoxetine HCL 20 MG CAPSULE PO SCH (08:26)
[2019-04-26] MEDS: MULTIVITAMINS WITH MINERALS, THERAPEUTIC TABLET PO SCH (08:26)
[2019-04-26] MEDS: VALPROIC ACID 250 MG CAPSULE PO SCH ×2 (08:26→20:24)
[2019-04-26] MEDS: QUEtiapine FUMARATE 200 MG TABLET PO SCH ×2 (08:27→20:23)
[2019-04-26] MEDS: CHLORHEXIDINE GLUCONATE 4% 118 ML TOPICAL LIQUID TP SCH (08:34)
[2019-04-26 19:20] VITALS: BP 138/76
[2019-04-26] MEDS: HALOPERIDOL 10 MG TABLET PO SCH (20:24)
[2019-04-27] MEDS: FERROUS SULFATE 325 MG EC TABLET PO SCH ×2 (06:41→17:32)
[2019-04-27] MEDS: LEVOTHYROXINE SODIUM 100 MCG TABLET PO SCH (06:41)
[2019-04-27] MEDS: OMEPRAZOLE 20 MG CAPSULE PO SCH (07:48)
[2019-04-27] MEDS: VALPROIC ACID 250 MG CAPSULE PO SCH ×2 (07:49→20:39)
[2019-04-27] MEDS: FLUoxetine HCL 20 MG CAPSULE PO SCH (07:49)
[2019-04-27] MEDS: OXYBUTYNIN CHLORIDE 5 MG ER TABLET PO SCH (07:49)
[2019-04-27] MEDS: MAGNESIUM OXIDE 400 MG TABLET PO SCH ×3 (07:49→17:27)
[2019-04-27] MEDS: QUEtiapine FUMARATE 200 MG TABLET PO SCH ×2 (07:50→20:38)
[2019-04-27] MEDS: ASCORBIC ACID 500 MG TABLET PO SCH (07:50)
[2019-04-27] MEDS: ASPIRIN 81 MG EC TABLET PO SCH (07:50)
[2019-04-27] MEDS: DOCUSATE SODIUM 100 MG CAPSULE PO SCH (07:50)
[2019-04-27] MEDS: MULTIVITAMINS WITH MINERALS, THERAPEUTIC TABLET PO SCH (07:50)
[2019-04-27] MEDS: TOPIRAMATE 100 MG TABLET PO SCH ×3 (07:50→17:27)
[2019-04-27] MEDS: LORATADINE 10 MG TABLET PO SCH (07:51)
[2019-04-27] MEDS: CHLORHEXIDINE GLUCONATE 4% 118 ML TOPICAL LIQUID TP SCH (07:54)
[2019-04-27] MEDS: HALOPERIDOL 5 MG TABLET PO PRN (07:56)
[2019-04-27] MEDS: LevETIRAcetam 250 MG TABLET PO SCH ×2 (09:33→17:27)
[2019-04-27] MEDS: HALOPERIDOL 10 MG TABLET PO SCH (20:38)
[2019-04-28] MEDS: FERROUS SULFATE 325 MG EC TABLET PO SCH ×2 (06:41→16:44)
[2019-04-28] MEDS: LEVOTHYROXINE SODIUM 100 MCG TABLET PO SCH (06:43)
[2019-04-28] MEDS: MAGNESIUM OXIDE 400 MG TABLET PO SCH ×3 (08:06→16:43)
[2019-04-28] MEDS: LORATADINE 10 MG TABLET PO SCH (08:07)
[2019-04-28] MEDS: FLUoxetine HCL 20 MG CAPSULE PO SCH (08:07)
[2019-04-28] MEDS: OMEPRAZOLE 20 MG CAPSULE PO SCH (08:07)
[2019-04-28] MEDS: MULTIVITAMINS WITH MINERALS, THERAPEUTIC TABLET PO SCH (08:07)
[2019-04-28] MEDS: ASPIRIN 81 MG EC TABLET PO SCH (08:07)
[2019-04-28] MEDS: HALOPERIDOL 5 MG TABLET PO PRN ×2 (08:07→16:51)
[2019-04-28] MEDS: DOCUSATE SODIUM 100 MG CAPSULE PO SCH (08:07)
[2019-04-28] MEDS: QUEtiapine FUMARATE 200 MG TABLET PO SCH ×2 (08:07→20:29)
[2019-04-28] MEDS: TOPIRAMATE 100 MG TABLET PO SCH ×3 (08:08→16:43)
[2019-04-28] MEDS: VALPROIC ACID 250 MG CAPSULE PO SCH ×2 (08:08→20:29)
[2019-04-28] MEDS: OXYBUTYNIN CHLORIDE 5 MG ER TABLET PO SCH (08:08)
[2019-04-28] MEDS: ASCORBIC ACID 500 MG TABLET PO SCH (08:08)
[2019-04-28] MEDS: LevETIRAcetam 250 MG TABLET PO SCH ×2 (08:08→16:43)
[2019-04-28 10:33] VITALS: BP 145/78
[2019-04-28] MEDS: CHLORHEXIDINE GLUCONATE 4% 118 ML TOPICAL LIQUID TP SCH (12:43)
[2019-04-28] MEDS: HALOPERIDOL 10 MG TABLET PO SCH (20:29)
[2019-04-29] MEDS: LEVOTHYROXINE SODIUM 100 MCG TABLET PO SCH (06:47)
[2019-04-29] MEDS: FERROUS SULFATE 325 MG EC TABLET PO SCH ×2 (06:47→17:52)
[2019-04-29] MEDS: DOCUSATE SODIUM 100 MG CAPSULE PO SCH (08:04)
[2019-04-29] MEDS: LORATADINE 10 MG TABLET PO SCH (08:04)
[2019-04-29] MEDS: VALPROIC ACID 250 MG CAPSULE PO SCH ×2 (08:05→20:31)
[2019-04-29] MEDS: OXYBUTYNIN CHLORIDE 5 MG ER TABLET PO SCH (08:05)
[2019-04-29] MEDS: ASPIRIN 81 MG EC TABLET PO SCH (08:06)
[2019-04-29] MEDS: LevETIRAcetam 250 MG TABLET PO SCH ×2 (08:06→17:53)
[2019-04-29] MEDS: MAGNESIUM OXIDE 400 MG TABLET PO SCH ×3 (08:06→17:53)
[2019-04-29] MEDS: OMEPRAZOLE 20 MG CAPSULE PO SCH (08:06)
[2019-04-29] MEDS: FLUoxetine HCL 20 MG CAPSULE PO SCH (08:07)
[2019-04-29] MEDS: QUEtiapine FUMARATE 200 MG TABLET PO SCH ×2 (08:07→20:31)
[2019-04-29] MEDS: MULTIVITAMINS WITH MINERALS, THERAPEUTIC TABLET PO SCH (08:07)
[2019-04-29] MEDS: TOPIRAMATE 100 MG TABLET PO SCH ×3 (09:10→17:53)
[2019-04-29] MEDS: CHLORHEXIDINE GLUCONATE 4% 118 ML TOPICAL LIQUID TP SCH (09:10)
[2019-04-29] MEDS: ASCORBIC ACID 500 MG TABLET PO SCH (09:10)
[2019-04-29 18:59] VITALS: BP 100/60
[2019-04-29] MEDS: HALOPERIDOL 10 MG TABLET PO SCH (20:31)
[2019-04-30 05:19] VITALS: BP 110/79
[2019-04-30] MEDS: FERROUS SULFATE 325 MG EC TABLET PO SCH ×2 (06:45→17:27)
[2019-04-30] MEDS: LEVOTHYROXINE SODIUM 100 MCG TABLET PO SCH (06:45)
[2019-04-30 08:42] VITALS: BP 121/77
[2019-04-30] MEDS: LORATADINE 10 MG TABLET PO SCH (08:46)
[2019-04-30] MEDS: DOCUSATE SODIUM 100 MG CAPSULE PO SCH (08:47)
[2019-04-30] MEDS: VALPROIC ACID 250 MG CAPSULE PO SCH ×2 (08:47→20:34)
[2019-04-30] MEDS: OXYBUTYNIN CHLORIDE 5 MG ER TABLET PO SCH (08:47)
[2019-04-30] MEDS: LevETIRAcetam 250 MG TABLET PO SCH ×2 (08:47→17:27)
[2019-04-30] MEDS: ASPIRIN 81 MG EC TABLET PO SCH (08:47)
[2019-04-30] MEDS: OMEPRAZOLE 20 MG CAPSULE PO SCH (08:48)
[2019-04-30] MEDS: MAGNESIUM OXIDE 400 MG TABLET PO SCH ×3 (08:48→17:26)
[2019-04-30] MEDS: MULTIVITAMINS WITH MINERALS, THERAPEUTIC TABLET PO SCH (08:49)
[2019-04-30] MEDS: CHLORHEXIDINE GLUCONATE 4% 118 ML TOPICAL LIQUID TP SCH (08:49)
[2019-04-30] MEDS: TOPIRAMATE 100 MG TABLET PO SCH ×3 (08:49→17:27)
[2019-04-30] MEDS: QUEtiapine FUMARATE 200 MG TABLET PO SCH ×2 (08:49→20:32)
[2019-04-30] MEDS: FLUoxetine HCL 20 MG CAPSULE PO SCH (08:49)
[2019-04-30] MEDS: ASCORBIC ACID 500 MG TABLET PO SCH (08:49)
[2019-04-30] MEDS: HALOPERIDOL 10 MG TABLET PO SCH (20:32)
[2019-05-01] MEDS: FERROUS SULFATE 325 MG EC TABLET PO SCH ×2 (06:39→18:00)
[2019-05-01] MEDS: LEVOTHYROXINE SODIUM 100 MCG TABLET PO SCH (06:40)
[2019-05-01] MEDS: ASPIRIN 81 MG EC TABLET PO SCH (08:03)
[2019-05-01] MEDS: OMEPRAZOLE 20 MG CAPSULE PO SCH (08:03)
[2019-05-01] MEDS: MULTIVITAMINS WITH MINERALS, THERAPEUTIC TABLET PO SCH (08:03)
[2019-05-01] MEDS: QUEtiapine FUMARATE 200 MG TABLET PO SCH ×2 (08:03→21:00)
[2019-05-01] MEDS: LORATADINE 10 MG TABLET PO SCH (08:03)
[2019-05-01] MEDS: DOCUSATE SODIUM 100 MG CAPSULE PO SCH (08:03)
[2019-05-01] MEDS: MAGNESIUM OXIDE 400 MG TABLET PO SCH ×3 (08:03→17:10)
[2019-05-01] MEDS: FLUoxetine HCL 20 MG CAPSULE PO SCH (08:04)
[2019-05-01] MEDS: OXYBUTYNIN CHLORIDE 5 MG ER TABLET PO SCH (08:05)
[2019-05-01] MEDS: VALPROIC ACID 250 MG CAPSULE PO SCH ×2 (08:05→21:00)
[2019-05-01] MEDS: ASCORBIC ACID 500 MG TABLET PO SCH (08:06)
[2019-05-01] MEDS: LevETIRAcetam 250 MG TABLET PO SCH ×2 (08:06→17:10)
[2019-05-01] MEDS: TOPIRAMATE 100 MG TABLET PO SCH ×3 (08:06→17:10)
[2019-05-01] MEDS: CHLORHEXIDINE GLUCONATE 4% 118 ML TOPICAL LIQUID TP SCH (08:06)
[2019-05-01] MEDS ORDERED: LORazepam 2 MG/ML VIAL IM ONE (09:15)
[2019-05-01] MEDS ORDERED: DiphenhydrAMINE HCL 50 MG/ML VIAL IM ONE (09:15)
[2019-05-01] MEDS ORDERED: HALOPERIDOL LACTATE 5 MG/ML VIAL IM ONE (09:15)
[2019-05-01] MEDS: HALOPERIDOL 10 MG TABLET PO SCH (21:00)
[2019-05-02] MEDS: FERROUS SULFATE 325 MG EC TABLET PO SCH ×2 (07:02→16:23)
[2019-05-02] MEDS: LEVOTHYROXINE SODIUM 100 MCG TABLET PO SCH (07:02)
[2019-05-02] MEDS: LORATADINE 10 MG TABLET PO SCH (08:05)
[2019-05-02] MEDS: MAGNESIUM OXIDE 400 MG TABLET PO SCH ×3 (08:05→16:23)
[2019-05-02] MEDS: MULTIVITAMINS WITH MINERALS, THERAPEUTIC TABLET PO SCH (08:05)
[2019-05-02] MEDS: QUEtiapine FUMARATE 200 MG TABLET PO SCH ×2 (08:05→20:51)
[2019-05-02] MEDS: OMEPRAZOLE 20 MG CAPSULE PO SCH (08:05)
[2019-05-02] MEDS: DOCUSATE SODIUM 100 MG CAPSULE PO SCH (08:05)
[2019-05-02] MEDS: ASCORBIC ACID 500 MG TABLET PO SCH (08:05)
[2019-05-02] MEDS: ASPIRIN 81 MG EC TABLET PO SCH (08:05)
[2019-05-02] MEDS: VALPROIC ACID 250 MG CAPSULE PO SCH ×2 (08:06→20:50)
[2019-05-02] MEDS: FLUoxetine HCL 20 MG CAPSULE PO SCH (08:06)
[2019-05-02] MEDS: OXYBUTYNIN CHLORIDE 5 MG ER TABLET PO SCH (08:06)
[2019-05-02] MEDS: LevETIRAcetam 250 MG TABLET PO SCH ×2 (08:07→16:23)
[2019-05-02] MEDS: CHLORHEXIDINE GLUCONATE 4% 118 ML TOPICAL LIQUID TP SCH (08:08)
[2019-05-02] MEDS: TOPIRAMATE 100 MG TABLET PO SCH ×3 (08:08→16:23)
[2019-05-02] MEDS: HALOPERIDOL 10 MG TABLET PO SCH (20:51)
[2019-05-02 21:00] VITALS: BP 91/45
[2019-05-02 21:35] LABS: GLUCOMETER DEV NAME(LOC) 3EX.; GLUCOSE,POINT OF CARE 135 MG/DL (70-110)
[2019-05-03 05:50] VITALS: BP 106/61
[2019-05-03] MEDS: FERROUS SULFATE 325 MG EC TABLET PO SCH ×2 (06:46→17:51)
[2019-05-03] MEDS: LEVOTHYROXINE SODIUM 100 MCG TABLET PO SCH (06:46)
[2019-05-03] MEDS: DOCUSATE SODIUM 100 MG CAPSULE PO SCH (08:04)
[2019-05-03] MEDS: FLUoxetine HCL 20 MG CAPSULE PO SCH (08:04)
[2019-05-03] MEDS: OMEPRAZOLE 20 MG CAPSULE PO SCH (08:05)
[2019-05-03] MEDS: LevETIRAcetam 250 MG TABLET PO SCH ×2 (08:05→17:51)
[2019-05-03] MEDS: QUEtiapine FUMARATE 200 MG TABLET PO SCH ×2 (08:05→21:41)
[2019-05-03] MEDS: MULTIVITAMINS WITH MINERALS, THERAPEUTIC TABLET PO SCH (08:05)
[2019-05-03] MEDS: MAGNESIUM OXIDE 400 MG TABLET PO SCH ×3 (08:05→17:51)
[2019-05-03] MEDS: TOPIRAMATE 100 MG TABLET PO SCH ×3 (08:05→17:51)
[2019-05-03] MEDS: LORATADINE 10 MG TABLET PO SCH (08:05)
[2019-05-03] MEDS: CHLORHEXIDINE GLUCONATE 4% 118 ML TOPICAL LIQUID TP SCH (08:06)
[2019-05-03] MEDS: ASCORBIC ACID 500 MG TABLET PO SCH (08:06)
[2019-05-03] MEDS: OXYBUTYNIN CHLORIDE 5 MG ER TABLET PO SCH (08:06)
[2019-05-03] MEDS: ASPIRIN 81 MG EC TABLET PO SCH (08:06)
[2019-05-03] MEDS: VALPROIC ACID 250 MG CAPSULE PO SCH ×2 (08:07→21:41)
[2019-05-03 11:15] VITALS: BP 128/84
[2019-05-03 18:39] VITALS: BP 108/64
[2019-05-03] MEDS: HALOPERIDOL 10 MG TABLET PO SCH (21:41)
[2019-05-04] MEDS: FERROUS SULFATE 325 MG EC TABLET PO SCH ×2 (06:55→17:38)
[2019-05-04] MEDS: LEVOTHYROXINE SODIUM 100 MCG TABLET PO SCH (06:55)
[2019-05-04] MEDS: TOPIRAMATE 100 MG TABLET PO SCH ×3 (08:08→17:38)
[2019-05-04] MEDS: FLUoxetine HCL 20 MG CAPSULE PO SCH (08:08)
[2019-05-04] MEDS: MAGNESIUM OXIDE 400 MG TABLET PO SCH ×3 (08:09→17:38)
[2019-05-04] MEDS: QUEtiapine FUMARATE 200 MG TABLET PO SCH ×2 (08:09→21:29)
[2019-05-04] MEDS: MULTIVITAMINS WITH MINERALS, THERAPEUTIC TABLET PO SCH (08:09)
[2019-05-04] MEDS: ASPIRIN 81 MG EC TABLET PO SCH (08:10)
[2019-05-04] MEDS: OMEPRAZOLE 20 MG CAPSULE PO SCH (08:10)
[2019-05-04] MEDS: VALPROIC ACID 250 MG CAPSULE PO SCH ×2 (08:10→21:28)
[2019-05-04] MEDS: DOCUSATE SODIUM 100 MG CAPSULE PO SCH (08:10)
[2019-05-04] MEDS: OXYBUTYNIN CHLORIDE 5 MG ER TABLET PO SCH (08:11)
[2019-05-04] MEDS: LORATADINE 10 MG TABLET PO SCH (08:11)
[2019-05-04] MEDS: LevETIRAcetam 250 MG TABLET PO SCH ×2 (08:11→17:38)
[2019-05-04] MEDS: ASCORBIC ACID 500 MG TABLET PO SCH (08:11)
[2019-05-04] MEDS: HALOPERIDOL 5 MG TABLET PO PRN (08:14)
[2019-05-04] MEDS: CHLORHEXIDINE GLUCONATE 4% 118 ML TOPICAL LIQUID TP SCH (08:17)
[2019-05-04] MEDS: HALOPERIDOL 10 MG TABLET PO SCH (21:29)
[2019-05-05] MEDS: FERROUS SULFATE 325 MG EC TABLET PO SCH ×2 (06:41→16:13)
[2019-05-05] MEDS: LEVOTHYROXINE SODIUM 100 MCG TABLET PO SCH (06:41)
[2019-05-05] MEDS: CHLORHEXIDINE GLUCONATE 4% 118 ML TOPICAL LIQUID TP SCH (09:00)
[2019-05-05] MEDS: HALOPERIDOL 5 MG TABLET PO PRN (09:16)
[2019-05-05] MEDS: OXYBUTYNIN CHLORIDE 5 MG ER TABLET PO SCH (09:17)
[2019-05-05] MEDS: QUEtiapine FUMARATE 200 MG TABLET PO SCH ×2 (09:17→20:19)
[2019-05-05] MEDS: FLUoxetine HCL 20 MG CAPSULE PO SCH (09:17)
[2019-05-05] MEDS: ASCORBIC ACID 500 MG TABLET PO SCH (09:17)
[2019-05-05] MEDS: LORATADINE 10 MG TABLET PO SCH (09:17)
[2019-05-05] MEDS: VALPROIC ACID 250 MG CAPSULE PO SCH ×2 (09:17→20:19)
[2019-05-05] MEDS: OMEPRAZOLE 20 MG CAPSULE PO SCH (09:17)
[2019-05-05] MEDS: LevETIRAcetam 250 MG TABLET PO SCH ×2 (09:18→16:13)
[2019-05-05] MEDS: ASPIRIN 81 MG EC TABLET PO SCH (09:18)
[2019-05-05] MEDS: MULTIVITAMINS WITH MINERALS, THERAPEUTIC TABLET PO SCH (09:18)
[2019-05-05] MEDS: MAGNESIUM OXIDE 400 MG TABLET PO SCH ×3 (09:18→16:13)
[2019-05-05] MEDS: TOPIRAMATE 100 MG TABLET PO SCH ×3 (09:19→16:13)
[2019-05-05] MEDS: DOCUSATE SODIUM 100 MG CAPSULE PO SCH (09:19)
[2019-05-05] MEDS: HALOPERIDOL 10 MG TABLET PO SCH (20:19)
[2019-05-06] MEDS: FERROUS SULFATE 325 MG EC TABLET PO SCH ×2 (07:01→16:10)
[2019-05-06] MEDS: LEVOTHYROXINE SODIUM 100 MCG TABLET PO SCH (07:01)
[2019-05-06] MEDS: VALPROIC ACID 250 MG CAPSULE PO SCH ×2 (08:08→20:10)
[2019-05-06] MEDS: QUEtiapine FUMARATE 200 MG TABLET PO SCH ×2 (08:09→20:10)
[2019-05-06] MEDS: LORATADINE 10 MG TABLET PO SCH (08:09)
[2019-05-06] MEDS: ASCORBIC ACID 500 MG TABLET PO SCH (08:09)
[2019-05-06] MEDS: TOPIRAMATE 100 MG TABLET PO SCH ×3 (08:09→16:10)
[2019-05-06] MEDS: HALOPERIDOL 5 MG TABLET PO PRN (08:09)
[2019-05-06] MEDS: FLUoxetine HCL 20 MG CAPSULE PO SCH (08:09)
[2019-05-06] MEDS: OXYBUTYNIN CHLORIDE 5 MG ER TABLET PO SCH (08:09)
[2019-05-06] MEDS: LevETIRAcetam 250 MG TABLET PO SCH ×2 (08:09→16:10)
[2019-05-06] MEDS: MAGNESIUM OXIDE 400 MG TABLET PO SCH ×3 (08:10→16:10)
[2019-05-06] MEDS: DOCUSATE SODIUM 100 MG CAPSULE PO SCH (08:10)
[2019-05-06] MEDS: ASPIRIN 81 MG EC TABLET PO SCH (08:10)
[2019-05-06] MEDS: MULTIVITAMINS WITH MINERALS, THERAPEUTIC TABLET PO SCH (08:10)
[2019-05-06] MEDS: OMEPRAZOLE 20 MG CAPSULE PO SCH (08:10)
[2019-05-06] MEDS: CHLORHEXIDINE GLUCONATE 4% 118 ML TOPICAL LIQUID TP SCH (12:22)
[2019-05-06] MEDS: HALOPERIDOL 10 MG TABLET PO SCH (20:10)
[2019-05-06 20:15] VITALS: BP 156/71
[2019-05-07] MEDS: FERROUS SULFATE 325 MG EC TABLET PO SCH ×2 (07:02→16:33)
[2019-05-07] MEDS: LEVOTHYROXINE SODIUM 100 MCG TABLET PO SCH (07:02)
[2019-05-07] MEDS: ASCORBIC ACID 500 MG TABLET PO SCH (08:27)
[2019-05-07] MEDS: TOPIRAMATE 100 MG TABLET PO SCH ×3 (08:27→16:33)
[2019-05-07] MEDS: LevETIRAcetam 250 MG TABLET PO SCH ×2 (08:27→16:33)
[2019-05-07] MEDS: OXYBUTYNIN CHLORIDE 5 MG ER TABLET PO SCH (08:28)
[2019-05-07] MEDS: HALOPERIDOL 5 MG TABLET PO PRN (08:28)
[2019-05-07] MEDS: VALPROIC ACID 250 MG CAPSULE PO SCH ×2 (08:28→20:02)
[2019-05-07] MEDS: ASPIRIN 81 MG EC TABLET PO SCH (08:29)
[2019-05-07] MEDS: QUEtiapine FUMARATE 200 MG TABLET PO SCH ×2 (08:29→20:03)
[2019-05-07] MEDS: OMEPRAZOLE 20 MG CAPSULE PO SCH (08:29)
[2019-05-07] MEDS: LORATADINE 10 MG TABLET PO SCH (08:29)
[2019-05-07] MEDS: MULTIVITAMINS WITH MINERALS, THERAPEUTIC TABLET PO SCH (08:29)
[2019-05-07] MEDS: MAGNESIUM OXIDE 400 MG TABLET PO SCH ×3 (08:29→16:34)
[2019-05-07] MEDS: FLUoxetine HCL 20 MG CAPSULE PO SCH (08:29)
[2019-05-07] MEDS: DOCUSATE SODIUM 100 MG CAPSULE PO SCH (08:30)
[2019-05-07] MEDS: CHLORHEXIDINE GLUCONATE 4% 118 ML TOPICAL LIQUID TP SCH (09:21)
[2019-05-07] MEDS: HALOPERIDOL 10 MG TABLET PO SCH (20:03)
[2019-05-08] MEDS: LEVOTHYROXINE SODIUM 100 MCG TABLET PO SCH (06:39)
[2019-05-08] MEDS: FERROUS SULFATE 325 MG EC TABLET PO SCH ×2 (06:39→17:28)
[2019-05-08] MEDS: ASCORBIC ACID 500 MG TABLET PO SCH (08:37)
[2019-05-08] MEDS: FLUoxetine HCL 20 MG CAPSULE PO SCH (08:37)
[2019-05-08] MEDS: VALPROIC ACID 250 MG CAPSULE PO SCH ×2 (08:37→21:06)
[2019-05-08] MEDS: MAGNESIUM OXIDE 400 MG TABLET PO SCH ×3 (08:37→17:28)
[2019-05-08] MEDS: QUEtiapine FUMARATE 200 MG TABLET PO SCH ×2 (08:37→21:06)
[2019-05-08] MEDS: DOCUSATE SODIUM 100 MG CAPSULE PO SCH (08:37)
[2019-05-08] MEDS: MULTIVITAMINS WITH MINERALS, THERAPEUTIC TABLET PO SCH (08:38)
[2019-05-08] MEDS: TOPIRAMATE 100 MG TABLET PO SCH ×3 (08:38→17:28)
[2019-05-08] MEDS: CHLORHEXIDINE GLUCONATE 4% 118 ML TOPICAL LIQUID TP SCH (08:38)
[2019-05-08] MEDS: OXYBUTYNIN CHLORIDE 5 MG ER TABLET PO SCH (08:38)
[2019-05-08] MEDS: OMEPRAZOLE 20 MG CAPSULE PO SCH (08:38)
[2019-05-08] MEDS: ASPIRIN 81 MG EC TABLET PO SCH (08:38)
[2019-05-08] MEDS: LevETIRAcetam 250 MG TABLET PO SCH ×2 (08:38→17:28)
[2019-05-08] MEDS: LORATADINE 10 MG TABLET PO SCH (08:38)
[2019-05-08 08:40] VITALS: BP 107/86
[2019-05-08] MEDS: HALOPERIDOL 10 MG TABLET PO SCH (21:07)
[2019-05-09] MEDS: FERROUS SULFATE 325 MG EC TABLET PO SCH ×2 (06:42→17:09)
[2019-05-09] MEDS: LEVOTHYROXINE SODIUM 100 MCG TABLET PO SCH (06:42)
[2019-05-09] MEDS: MAGNESIUM OXIDE 400 MG TABLET PO SCH ×3 (08:29→17:09)
[2019-05-09] MEDS: OMEPRAZOLE 20 MG CAPSULE PO SCH (08:29)
[2019-05-09] MEDS: VALPROIC ACID 250 MG CAPSULE PO SCH ×2 (08:29→21:45)
[2019-05-09] MEDS: LevETIRAcetam 250 MG TABLET PO SCH ×2 (08:29→17:10)
[2019-05-09] MEDS: FLUoxetine HCL 20 MG CAPSULE PO SCH (08:30)
[2019-05-09] MEDS: LORATADINE 10 MG TABLET PO SCH (08:30)
[2019-05-09] MEDS: QUEtiapine FUMARATE 200 MG TABLET PO SCH ×2 (08:30→21:46)
[2019-05-09] MEDS: OXYBUTYNIN CHLORIDE 5 MG ER TABLET PO SCH (08:30)
[2019-05-09] MEDS: DOCUSATE SODIUM 100 MG CAPSULE PO SCH (08:30)
[2019-05-09] MEDS: ASCORBIC ACID 500 MG TABLET PO SCH (08:30)
[2019-05-09] MEDS: MULTIVITAMINS WITH MINERALS, THERAPEUTIC TABLET PO SCH (08:30)
[2019-05-09] MEDS: TOPIRAMATE 100 MG TABLET PO SCH ×3 (08:31→17:09)
[2019-05-09] MEDS: ASPIRIN 81 MG EC TABLET PO SCH (08:31)
[2019-05-09] MEDS: CHLORHEXIDINE GLUCONATE 4% 118 ML TOPICAL LIQUID TP SCH (09:00)
[2019-05-09 16:30] VITALS: BP 144/79
[2019-05-09] MEDS: HALOPERIDOL 10 MG TABLET PO SCH (21:45)
[2019-05-10] MEDS: LEVOTHYROXINE SODIUM 100 MCG TABLET PO SCH (06:43)
[2019-05-10] MEDS: FERROUS SULFATE 325 MG EC TABLET PO SCH ×2 (06:44→18:16)
[2019-05-10] MEDS: DOCUSATE SODIUM 100 MG CAPSULE PO SCH (08:07)
[2019-05-10] MEDS: VALPROIC ACID 250 MG CAPSULE PO SCH ×2 (08:07→20:14)
[2019-05-10] MEDS: OXYBUTYNIN CHLORIDE 5 MG ER TABLET PO SCH (08:07)
[2019-05-10] MEDS: LORATADINE 10 MG TABLET PO SCH (08:07)
[2019-05-10] MEDS: ASPIRIN 81 MG EC TABLET PO SCH (08:07)
[2019-05-10] MEDS: MAGNESIUM OXIDE 400 MG TABLET PO SCH ×3 (08:08→18:16)
[2019-05-10] MEDS: OMEPRAZOLE 20 MG CAPSULE PO SCH (08:08)
[2019-05-10] MEDS: FLUoxetine HCL 20 MG CAPSULE PO SCH (08:08)
[2019-05-10] MEDS: MULTIVITAMINS WITH MINERALS, THERAPEUTIC TABLET PO SCH (08:09)
[2019-05-10] MEDS: CHLORHEXIDINE GLUCONATE 4% 118 ML TOPICAL LIQUID TP SCH (08:09)
[2019-05-10] MEDS: TOPIRAMATE 100 MG TABLET PO SCH ×3 (08:09→18:15)
[2019-05-10] MEDS: QUEtiapine FUMARATE 200 MG TABLET PO SCH ×2 (08:09→20:13)
[2019-05-10] MEDS: ASCORBIC ACID 500 MG TABLET PO SCH (08:09)
[2019-05-10] MEDS: LevETIRAcetam 250 MG TABLET PO SCH ×2 (08:11→18:15)
[2019-05-10] MEDS: HALOPERIDOL 5 MG TABLET PO PRN (08:12)
[2019-05-10] MEDS: HALOPERIDOL 10 MG TABLET PO SCH (20:13)
[2019-05-11] MEDS: FERROUS SULFATE 325 MG EC TABLET PO SCH ×2 (06:36→16:13)
[2019-05-11] MEDS: LEVOTHYROXINE SODIUM 100 MCG TABLET PO SCH (06:36)
[2019-05-11 08:29] VITALS: BP 133/66
[2019-05-11] MEDS: HALOPERIDOL 5 MG TABLET PO PRN (09:01)
[2019-05-11] MEDS: ASCORBIC ACID 500 MG TABLET PO SCH (09:01)
[2019-05-11] MEDS: DOCUSATE SODIUM 100 MG CAPSULE PO SCH (09:01)
[2019-05-11] MEDS: FLUoxetine HCL 20 MG CAPSULE PO SCH (09:01)
[2019-05-11] MEDS: OMEPRAZOLE 20 MG CAPSULE PO SCH (09:02)
[2019-05-11] MEDS: VALPROIC ACID 250 MG CAPSULE PO SCH ×2 (09:02→20:25)
[2019-05-11] MEDS: MULTIVITAMINS WITH MINERALS, THERAPEUTIC TABLET PO SCH (09:02)
[2019-05-11] MEDS: LevETIRAcetam 250 MG TABLET PO SCH ×2 (09:02→16:13)
[2019-05-11] MEDS: QUEtiapine FUMARATE 200 MG TABLET PO SCH ×2 (09:02→20:25)
[2019-05-11] MEDS: ASPIRIN 81 MG EC TABLET PO SCH (09:02)
[2019-05-11] MEDS: LORATADINE 10 MG TABLET PO SCH (09:03)
[2019-05-11] MEDS: OXYBUTYNIN CHLORIDE 5 MG ER TABLET PO SCH (09:03)
[2019-05-11] MEDS: TOPIRAMATE 100 MG TABLET PO SCH ×3 (09:03→16:13)
[2019-05-11] MEDS: MAGNESIUM OXIDE 400 MG TABLET PO SCH ×3 (09:04→16:13)
[2019-05-11] MEDS: CHLORHEXIDINE GLUCONATE 4% 118 ML TOPICAL LIQUID TP SCH (11:46)
[2019-05-11] MEDS: HALOPERIDOL 10 MG TABLET PO SCH (20:25)
[2019-05-12] MEDS: FERROUS SULFATE 325 MG EC TABLET PO SCH ×2 (06:49→19:02)
[2019-05-12] MEDS: LEVOTHYROXINE SODIUM 100 MCG TABLET PO SCH (06:49)
[2019-05-12 08:00] VITALS: BP 110/61
[2019-05-12] MEDS: LORATADINE 10 MG TABLET PO SCH (08:18)
[2019-05-12] MEDS: ASPIRIN 81 MG EC TABLET PO SCH (08:18)
[2019-05-12] MEDS: MAGNESIUM OXIDE 400 MG TABLET PO SCH ×3 (08:18→16:08)
[2019-05-12] MEDS: DOCUSATE SODIUM 100 MG CAPSULE PO SCH (08:18)
[2019-05-12] MEDS: FLUoxetine HCL 20 MG CAPSULE PO SCH (08:19)
[2019-05-12] MEDS: MULTIVITAMINS WITH MINERALS, THERAPEUTIC TABLET PO SCH (08:19)
[2019-05-12] MEDS: QUEtiapine FUMARATE 200 MG TABLET PO SCH ×2 (08:19→21:30)
[2019-05-12] MEDS: TOPIRAMATE 100 MG TABLET PO SCH ×3 (08:20→16:08)
[2019-05-12] MEDS: OXYBUTYNIN CHLORIDE 5 MG ER TABLET PO SCH (08:20)
[2019-05-12] MEDS: ASCORBIC ACID 500 MG TABLET PO SCH (08:20)
[2019-05-12] MEDS: LevETIRAcetam 250 MG TABLET PO SCH ×2 (08:20→16:08)
[2019-05-12] MEDS: HALOPERIDOL 5 MG TABLET PO PRN (08:20)
[2019-05-12] MEDS: VALPROIC ACID 250 MG CAPSULE PO SCH ×2 (08:21→21:30)
[2019-05-12] MEDS: OMEPRAZOLE 20 MG CAPSULE PO SCH (08:23)
[2019-05-12] MEDS: CHLORHEXIDINE GLUCONATE 4% 118 ML TOPICAL LIQUID TP SCH (11:20)
[2019-05-12] MEDS: HALOPERIDOL 10 MG TABLET PO SCH (21:30)
[2019-05-13] MEDS: LEVOTHYROXINE SODIUM 100 MCG TABLET PO SCH (06:35)
[2019-05-13] MEDS: FERROUS SULFATE 325 MG EC TABLET PO SCH ×2 (06:36→16:44)
[2019-05-13 09:00] VITALS: BP 101/56
[2019-05-13] MEDS: DOCUSATE SODIUM 100 MG CAPSULE PO SCH (09:15)
[2019-05-13] MEDS: OXYBUTYNIN CHLORIDE 5 MG ER TABLET PO SCH (09:15)
[2019-05-13] MEDS: OMEPRAZOLE 20 MG CAPSULE PO SCH (09:15)
[2019-05-13] MEDS: MULTIVITAMINS WITH MINERALS, THERAPEUTIC TABLET PO SCH (09:15)
[2019-05-13] MEDS: VALPROIC ACID 250 MG CAPSULE PO SCH ×2 (09:15→20:27)
[2019-05-13] MEDS: TOPIRAMATE 100 MG TABLET PO SCH ×3 (09:16→16:43)
[2019-05-13] MEDS: LORATADINE 10 MG TABLET PO SCH (09:16)
[2019-05-13] MEDS: ASPIRIN 81 MG EC TABLET PO SCH (09:16)
[2019-05-13] MEDS: LevETIRAcetam 250 MG TABLET PO SCH ×2 (09:16→16:43)
[2019-05-13] MEDS: MAGNESIUM OXIDE 400 MG TABLET PO SCH ×3 (09:16→16:43)
[2019-05-13] MEDS: QUEtiapine FUMARATE 200 MG TABLET PO SCH ×2 (09:16→20:27)
[2019-05-13] MEDS: ASCORBIC ACID 500 MG TABLET PO SCH (09:16)
[2019-05-13] MEDS: FLUoxetine HCL 20 MG CAPSULE PO SCH (09:16)
[2019-05-13] MEDS: CHLORHEXIDINE GLUCONATE 4% 118 ML TOPICAL LIQUID TP SCH (09:18)
[2019-05-13] MEDS: HALOPERIDOL 10 MG TABLET PO SCH (20:27)
[2019-05-14] MEDS: LEVOTHYROXINE SODIUM 100 MCG TABLET PO SCH (07:11)
[2019-05-14] MEDS: FERROUS SULFATE 325 MG EC TABLET PO SCH ×2 (07:11→17:18)
[2019-05-14] MEDS: QUEtiapine FUMARATE 200 MG TABLET PO SCH ×3 (09:56→21:00)
[2019-05-14] MEDS: VALPROIC ACID 250 MG CAPSULE PO SCH ×3 (09:56→21:00)
[2019-05-14] MEDS: FLUoxetine HCL 20 MG CAPSULE PO SCH (09:56)
[2019-05-14] MEDS: LORATADINE 10 MG TABLET PO SCH (09:56)
[2019-05-14] MEDS: DOCUSATE SODIUM 100 MG CAPSULE PO SCH (09:56)
[2019-05-14] MEDS: OMEPRAZOLE 20 MG CAPSULE PO SCH (09:56)
[2019-05-14] MEDS: TOPIRAMATE 100 MG TABLET PO SCH ×3 (09:57→17:18)
[2019-05-14] MEDS: HALOPERIDOL 5 MG TABLET PO PRN ×3 (09:57→20:12)
[2019-05-14] MEDS: LevETIRAcetam 250 MG TABLET PO SCH ×2 (09:57→17:18)
[2019-05-14] MEDS: MULTIVITAMINS WITH MINERALS, THERAPEUTIC TABLET PO SCH (09:58)
[2019-05-14] MEDS: MAGNESIUM OXIDE 400 MG TABLET PO SCH ×3 (09:58→17:18)
[2019-05-14] MEDS: ASCORBIC ACID 500 MG TABLET PO SCH (09:58)
[2019-05-14] MEDS: OXYBUTYNIN CHLORIDE 5 MG ER TABLET PO SCH (09:58)
[2019-05-14] MEDS: ASPIRIN 81 MG EC TABLET PO SCH (09:58)
[2019-05-14] MEDS: CHLORHEXIDINE GLUCONATE 4% 118 ML TOPICAL LIQUID TP SCH (09:59)
[2019-05-14] MEDS: HALOPERIDOL 10 MG TABLET PO SCH ×2 (20:14→21:00)
[2019-05-15 06:04] LABS: HEMOGLOBIN 12.4 g/dL (12.0-16.0); MEAN CORPUSCULAR HEMOGLOBIN 33.7 pg (26.0-34.0); MEAN CORPUSCULAR HGB CONC 33.4 G/dL (31.0-37.0); MEAN CORPUSCULAR VOLUME 101 fL (80-100); PLATELET COUNT (AUTO) 175 K/uL (150-450); RED BLOOD CELL COUNT(AUTO) 3.67 MIL/uL (4.00-5.20); RED CELL DISTRIBUTION WIDTH 14.4 % (11.5-14.5)
[2019-05-15 06:23] LABS: HEMOGLOBIN A1C 5.4 % (4.5-6.2)
[2019-05-15 06:31] LABS: ANION GAP 8 mmol/L (8-16); CARBON DIOXIDE 28 mmol/L (22-29); CHLORIDE 105 mmol/L (98-107); CHOLESTEROL 176 mg/dL (131-200); CREATININE 0.57 mg/dL (0.60-1.30); GLOMERULAR FILTR. RATE CALC > 60 mL/min (>60); GLUCOSE,RANDOM 131 mg/dL (70-110); HDL CHOLESTEROL 44 mg/dL (40-60); LDL CHOL (CALC.) 101 mg/dL (0-130); PHOSPHORUS 3.9 mg/dL (2.5-4.9); POTASSIUM 4.3 mmol/L (3.5-5.1); SODIUM SERUM 141 mmol/L (136-145); THYROID STIMULATING HORMONE 10.27 uIU/mL (0.36-3.74); TRIGLYCERIDES 154 mg/dL (15-150); UREA NITROGEN, BLOOD 15 mg/dL (7-18)
[2019-05-15] MEDS: LEVOTHYROXINE SODIUM 100 MCG TABLET PO SCH (06:45)
[2019-05-15] MEDS: FERROUS SULFATE 325 MG EC TABLET PO SCH ×2 (06:45→18:24)
[2019-05-15 07:34] LABS: BAND NEUTROPHILS % (MANUAL) 1 % (0-5); LYMPHOCYTES % (MANUAL) 44 % (22-44); MONOCYTES % (MANUAL) 7 % (2-9); SEGMENTED NEUTROPHILS % 48 % (40-70)
[2019-05-15] MEDS: HALOPERIDOL 5 MG TABLET PO PRN (08:04)
[2019-05-15] MEDS: FLUoxetine HCL 20 MG CAPSULE PO SCH (08:05)
[2019-05-15] MEDS: ASPIRIN 81 MG EC TABLET PO SCH (08:05)
[2019-05-15] MEDS: VALPROIC ACID 250 MG CAPSULE PO SCH ×2 (08:05→22:44)
[2019-05-15] MEDS: QUEtiapine FUMARATE 200 MG TABLET PO SCH ×2 (08:06→22:46)
[2019-05-15] MEDS: MAGNESIUM OXIDE 400 MG TABLET PO SCH ×3 (08:06→18:25)
[2019-05-15] MEDS: DOCUSATE SODIUM 100 MG CAPSULE PO SCH (08:06)
[2019-05-15] MEDS: LevETIRAcetam 250 MG TABLET PO SCH ×2 (08:06→18:24)
[2019-05-15] MEDS: MULTIVITAMINS WITH MINERALS, THERAPEUTIC TABLET PO SCH (08:06)
[2019-05-15] MEDS: OXYBUTYNIN CHLORIDE 5 MG ER TABLET PO SCH (08:06)
[2019-05-15] MEDS: LORATADINE 10 MG TABLET PO SCH (08:06)
[2019-05-15] MEDS: OMEPRAZOLE 20 MG CAPSULE PO SCH (08:06)
[2019-05-15] MEDS: ASCORBIC ACID 500 MG TABLET PO SCH (08:12)
[2019-05-15] MEDS: TOPIRAMATE 100 MG TABLET PO SCH ×3 (08:12→18:24)
[2019-05-15] MEDS: CHLORHEXIDINE GLUCONATE 4% 118 ML TOPICAL LIQUID TP SCH (08:13)
[2019-05-15] MEDS: OMEGA-3/DHA/EPA/FISH OIL 1,000 MG CAPSULE PO SCH (09:18)
[2019-05-15 09:24] VITALS: BP 125/78
[2019-05-15 19:56] VITALS: BP 120/69
[2019-05-15] MEDS: HALOPERIDOL 10 MG TABLET PO SCH (22:45)
[2019-05-16] MEDS: LEVOTHYROXINE SODIUM 100 MCG TABLET PO SCH (06:49)
[2019-05-16] MEDS: FERROUS SULFATE 325 MG EC TABLET PO SCH ×2 (06:50→17:48)
[2019-05-16] MEDS: ASPIRIN 81 MG EC TABLET PO SCH (08:17)
[2019-05-16] MEDS: VALPROIC ACID 250 MG CAPSULE PO SCH ×2 (08:17→21:38)
[2019-05-16] MEDS: ASCORBIC ACID 500 MG TABLET PO SCH (08:17)
[2019-05-16] MEDS: OMEPRAZOLE 20 MG CAPSULE PO SCH (08:17)
[2019-05-16] MEDS: QUEtiapine FUMARATE 200 MG TABLET PO SCH ×2 (08:18→21:39)
[2019-05-16] MEDS: DOCUSATE SODIUM 100 MG CAPSULE PO SCH (08:18)
[2019-05-16] MEDS: OMEGA-3/DHA/EPA/FISH OIL 1,000 MG CAPSULE PO SCH (08:18)
[2019-05-16] MEDS: LevETIRAcetam 250 MG TABLET PO SCH ×2 (08:18→17:48)
[2019-05-16] MEDS: TOPIRAMATE 100 MG TABLET PO SCH ×3 (08:18→17:49)
[2019-05-16] MEDS: FLUoxetine HCL 20 MG CAPSULE PO SCH (08:18)
[2019-05-16] MEDS: LORATADINE 10 MG TABLET PO SCH (08:18)
[2019-05-16] MEDS: OXYBUTYNIN CHLORIDE 5 MG ER TABLET PO SCH (08:19)
[2019-05-16] MEDS: MAGNESIUM OXIDE 400 MG TABLET PO SCH ×3 (08:19→17:48)
[2019-05-16] MEDS: MULTIVITAMINS WITH MINERALS, THERAPEUTIC TABLET PO SCH (08:19)
[2019-05-16] MEDS: CHLORHEXIDINE GLUCONATE 4% 118 ML TOPICAL LIQUID TP SCH (09:46)
[2019-05-16 13:47] VITALS: BP 148/58
[2019-05-16] MEDS: HALOPERIDOL 10 MG TABLET PO SCH (21:39)
[2019-05-17] MEDS: FERROUS SULFATE 325 MG EC TABLET PO SCH ×2 (06:55→18:07)
[2019-05-17] MEDS: LEVOTHYROXINE SODIUM 100 MCG TABLET PO SCH (06:55)
[2019-05-17] MEDS: QUEtiapine FUMARATE 200 MG TABLET PO SCH ×2 (08:55→21:23)
[2019-05-17] MEDS: DOCUSATE SODIUM 100 MG CAPSULE PO SCH (08:55)
[2019-05-17] MEDS: OMEGA-3/DHA/EPA/FISH OIL 1,000 MG CAPSULE PO SCH (08:55)
[2019-05-17] MEDS: FLUoxetine HCL 20 MG CAPSULE PO SCH (08:55)
[2019-05-17] MEDS: MAGNESIUM OXIDE 400 MG TABLET PO SCH ×3 (08:56→18:08)
[2019-05-17] MEDS: ASPIRIN 81 MG EC TABLET PO SCH (08:56)
[2019-05-17] MEDS: OMEPRAZOLE 20 MG CAPSULE PO SCH (08:56)
[2019-05-17] MEDS: MULTIVITAMINS WITH MINERALS, THERAPEUTIC TABLET PO SCH (08:56)
[2019-05-17] MEDS: LORATADINE 10 MG TABLET PO SCH (08:56)
[2019-05-17] MEDS: VALPROIC ACID 250 MG CAPSULE PO SCH ×2 (08:57→21:23)
[2019-05-17] MEDS: TOPIRAMATE 100 MG TABLET PO SCH ×3 (08:57→18:07)
[2019-05-17] MEDS: LevETIRAcetam 250 MG TABLET PO SCH ×2 (08:57→18:07)
[2019-05-17] MEDS: ASCORBIC ACID 500 MG TABLET PO SCH (08:58)
[2019-05-17] MEDS: OXYBUTYNIN CHLORIDE 5 MG ER TABLET PO SCH (08:58)
[2019-05-17] MEDS: CHLORHEXIDINE GLUCONATE 4% 118 ML TOPICAL LIQUID TP SCH (08:58)
[2019-05-17 10:02] VITALS: BP 111/63
[2019-05-17] MEDS: HALOPERIDOL 10 MG TABLET PO SCH (21:23)
[2019-05-18] MEDS: FERROUS SULFATE 325 MG EC TABLET PO SCH ×2 (06:39→16:25)
[2019-05-18] MEDS: LEVOTHYROXINE SODIUM 100 MCG TABLET PO SCH (06:39)
[2019-05-18 08:05] VITALS: BP 109/75
[2019-05-18] MEDS: QUEtiapine FUMARATE 200 MG TABLET PO SCH (08:10)
[2019-05-18] MEDS: OMEGA-3/DHA/EPA/FISH OIL 1,000 MG CAPSULE PO SCH (08:10)
[2019-05-18] MEDS: DOCUSATE SODIUM 100 MG CAPSULE PO SCH (08:10)
[2019-05-18] MEDS: MAGNESIUM OXIDE 400 MG TABLET PO SCH ×3 (08:11→16:25)
[2019-05-18] MEDS: FLUoxetine HCL 20 MG CAPSULE PO SCH (08:11)
[2019-05-18] MEDS: OMEPRAZOLE 20 MG CAPSULE PO SCH (08:12)
[2019-05-18] MEDS: ASPIRIN 81 MG EC TABLET PO SCH (08:12)
[2019-05-18] MEDS: LORATADINE 10 MG TABLET PO SCH (08:12)
[2019-05-18] MEDS: MULTIVITAMINS WITH MINERALS, THERAPEUTIC TABLET PO SCH (08:12)
[2019-05-18] MEDS: VALPROIC ACID 250 MG CAPSULE PO SCH (08:13)
[2019-05-18] MEDS: ASCORBIC ACID 500 MG TABLET PO SCH (08:13)
[2019-05-18] MEDS: LevETIRAcetam 250 MG TABLET PO SCH ×2 (08:13→16:25)
[2019-05-18] MEDS: TOPIRAMATE 100 MG TABLET PO SCH ×3 (08:13→16:25)
[2019-05-18] MEDS: OXYBUTYNIN CHLORIDE 5 MG ER TABLET PO SCH (08:14)
[2019-05-18] MEDS: CHLORHEXIDINE GLUCONATE 4% 118 ML TOPICAL LIQUID TP SCH (08:14)
[2019-05-18 16:20] VITALS: BP 117/78
[2019-05-19] MEDS: LEVOTHYROXINE SODIUM 100 MCG TABLET PO SCH (06:41)
[2019-05-19] MEDS: FERROUS SULFATE 325 MG EC TABLET PO SCH ×2 (06:41→17:29)
[2019-05-19] MEDS: VALPROIC ACID 250 MG CAPSULE PO SCH ×2 (10:31→21:50)
[2019-05-19] MEDS: LORATADINE 10 MG TABLET PO SCH (10:32)
[2019-05-19] MEDS: MULTIVITAMINS WITH MINERALS, THERAPEUTIC TABLET PO SCH (10:32)
[2019-05-19] MEDS: FLUoxetine HCL 20 MG CAPSULE PO SCH (10:32)
[2019-05-19] MEDS: TOPIRAMATE 100 MG TABLET PO SCH ×3 (10:32→17:29)
[2019-05-19] MEDS: ASPIRIN 81 MG EC TABLET PO SCH (10:32)
[2019-05-19] MEDS: OMEPRAZOLE 20 MG CAPSULE PO SCH (10:32)
[2019-05-19] MEDS: QUEtiapine FUMARATE 200 MG TABLET PO SCH ×2 (10:32→21:54)
[2019-05-19] MEDS: ASCORBIC ACID 500 MG TABLET PO SCH (10:32)
[2019-05-19] MEDS: LevETIRAcetam 250 MG TABLET PO SCH ×2 (10:32→17:29)
[2019-05-19] MEDS: OXYBUTYNIN CHLORIDE 5 MG ER TABLET PO SCH (10:32)
[2019-05-19] MEDS: OMEGA-3/DHA/EPA/FISH OIL 1,000 MG CAPSULE PO SCH (10:33)
[2019-05-19] MEDS: MAGNESIUM OXIDE 400 MG TABLET PO SCH ×3 (10:33→17:29)
[2019-05-19] MEDS: DOCUSATE SODIUM 100 MG CAPSULE PO SCH (10:33)
[2019-05-19] MEDS: HALOPERIDOL 5 MG TABLET PO PRN (10:33)
[2019-05-19] MEDS: CHLORHEXIDINE GLUCONATE 4% 118 ML TOPICAL LIQUID TP SCH (11:17)
[2019-05-19] MEDS: HALOPERIDOL 10 MG TABLET PO SCH (21:50)
[2019-05-20] MEDS: LEVOTHYROXINE SODIUM 100 MCG TABLET PO SCH (06:41)
[2019-05-20] MEDS: FERROUS SULFATE 325 MG EC TABLET PO SCH ×2 (06:41→18:07)
[2019-05-20] MEDS: QUEtiapine FUMARATE 200 MG TABLET PO SCH ×2 (08:48→21:09)
[2019-05-20] MEDS: HALOPERIDOL 5 MG TABLET PO PRN (08:48)
[2019-05-20] MEDS: OMEGA-3/DHA/EPA/FISH OIL 1,000 MG CAPSULE PO SCH (08:48)
[2019-05-20] MEDS: LevETIRAcetam 250 MG TABLET PO SCH ×2 (08:48→18:07)
[2019-05-20] MEDS: TOPIRAMATE 100 MG TABLET PO SCH ×3 (08:48→18:07)
[2019-05-20] MEDS: ASPIRIN 81 MG EC TABLET PO SCH (08:49)
[2019-05-20] MEDS: MULTIVITAMINS WITH MINERALS, THERAPEUTIC TABLET PO SCH (08:49)
[2019-05-20] MEDS: OMEPRAZOLE 20 MG CAPSULE PO SCH (08:49)
[2019-05-20] MEDS: OXYBUTYNIN CHLORIDE 5 MG ER TABLET PO SCH (08:49)
[2019-05-20] MEDS: DOCUSATE SODIUM 100 MG CAPSULE PO SCH (08:49)
[2019-05-20] MEDS: LORATADINE 10 MG TABLET PO SCH (08:49)
[2019-05-20] MEDS: VALPROIC ACID 250 MG CAPSULE PO SCH ×2 (08:49→21:10)
[2019-05-20] MEDS: ASCORBIC ACID 500 MG TABLET PO SCH (08:49)
[2019-05-20] MEDS: MAGNESIUM OXIDE 400 MG TABLET PO SCH ×3 (08:49→18:07)
[2019-05-20] MEDS: FLUoxetine HCL 20 MG CAPSULE PO SCH (08:50)
[2019-05-20] MEDS: CHLORHEXIDINE GLUCONATE 4% 118 ML TOPICAL LIQUID TP SCH (13:18)
[2019-05-20] MEDS: HALOPERIDOL 10 MG TABLET PO SCH (21:10)
[2019-05-21] MEDS: FERROUS SULFATE 325 MG EC TABLET PO SCH ×2 (06:37→15:52)
[2019-05-21] MEDS: LEVOTHYROXINE SODIUM 100 MCG TABLET PO SCH (06:37)
[2019-05-21] MEDS: DOCUSATE SODIUM 100 MG CAPSULE PO SCH (08:56)
[2019-05-21] MEDS: ASPIRIN 81 MG EC TABLET PO SCH (08:57)
[2019-05-21] MEDS: LevETIRAcetam 250 MG TABLET PO SCH ×2 (08:57→15:52)
[2019-05-21] MEDS: MULTIVITAMINS WITH MINERALS, THERAPEUTIC TABLET PO SCH (08:57)
[2019-05-21] MEDS: VALPROIC ACID 250 MG CAPSULE PO SCH ×2 (08:57→20:12)
[2019-05-21] MEDS: LORATADINE 10 MG TABLET PO SCH (08:57)
[2019-05-21] MEDS: QUEtiapine FUMARATE 200 MG TABLET PO SCH ×2 (08:57→20:12)
[2019-05-21] MEDS: ASCORBIC ACID 500 MG TABLET PO SCH (08:57)
[2019-05-21] MEDS: HALOPERIDOL 5 MG TABLET PO PRN (08:57)
[2019-05-21] MEDS: FLUoxetine HCL 20 MG CAPSULE PO SCH (08:58)
[2019-05-21] MEDS: TOPIRAMATE 100 MG TABLET PO SCH ×3 (08:58→15:52)
[2019-05-21] MEDS: OMEPRAZOLE 20 MG CAPSULE PO SCH (08:58)
[2019-05-21] MEDS: MAGNESIUM OXIDE 400 MG TABLET PO SCH ×3 (08:58→15:52)
[2019-05-21] MEDS: OMEGA-3/DHA/EPA/FISH OIL 1,000 MG CAPSULE PO SCH (08:58)
[2019-05-21] MEDS: OXYBUTYNIN CHLORIDE 5 MG ER TABLET PO SCH (08:58)
[2019-05-21] MEDS: CHLORHEXIDINE GLUCONATE 4% 118 ML TOPICAL LIQUID TP SCH (10:45)
[2019-05-21] MEDS: HALOPERIDOL 10 MG TABLET PO SCH (20:11)
[2019-05-22 00:23] VITALS: BP 118/78
[2019-05-22] MEDS: FERROUS SULFATE 325 MG EC TABLET PO SCH ×2 (06:44→17:14)
[2019-05-22] MEDS: LEVOTHYROXINE SODIUM 100 MCG TABLET PO SCH (06:44)
[2019-05-22] MEDS: ASPIRIN 81 MG EC TABLET PO SCH (07:38)
[2019-05-22] MEDS: CHLORHEXIDINE GLUCONATE 4% 118 ML TOPICAL LIQUID TP SCH (07:38)
[2019-05-22] MEDS: VALPROIC ACID 250 MG CAPSULE PO SCH ×2 (07:38→21:34)
[2019-05-22] MEDS: ASCORBIC ACID 500 MG TABLET PO SCH (07:39)
[2019-05-22] MEDS: HALOPERIDOL 5 MG TABLET PO PRN (07:39)
[2019-05-22] MEDS: OXYBUTYNIN CHLORIDE 5 MG ER TABLET PO SCH (07:39)
[2019-05-22] MEDS: LORATADINE 10 MG TABLET PO SCH (07:39)
[2019-05-22] MEDS: QUEtiapine FUMARATE 200 MG TABLET PO SCH ×2 (07:39→21:35)
[2019-05-22] MEDS: OMEPRAZOLE 20 MG CAPSULE PO SCH (07:39)
[2019-05-22] MEDS: TOPIRAMATE 100 MG TABLET PO SCH ×3 (07:39→17:15)
[2019-05-22] MEDS: LevETIRAcetam 250 MG TABLET PO SCH ×2 (07:39→17:14)
[2019-05-22] MEDS: FLUoxetine HCL 20 MG CAPSULE PO SCH (07:39)
[2019-05-22] MEDS: MULTIVITAMINS WITH MINERALS, THERAPEUTIC TABLET PO SCH (07:40)
[2019-05-22] MEDS: OMEGA-3/DHA/EPA/FISH OIL 1,000 MG CAPSULE PO SCH (07:40)
[2019-05-22] MEDS: MAGNESIUM OXIDE 400 MG TABLET PO SCH ×3 (07:40→17:14)
[2019-05-22] MEDS: DOCUSATE SODIUM 100 MG CAPSULE PO SCH (07:40)
[2019-05-22] MEDS: HALOPERIDOL 10 MG TABLET PO SCH (21:35)
[2019-05-23] MEDS: LEVOTHYROXINE SODIUM 100 MCG TABLET PO SCH (07:00)
[2019-05-23] MEDS: FERROUS SULFATE 325 MG EC TABLET PO SCH ×2 (07:07→16:25)
[2019-05-23] MEDS: CHLORHEXIDINE GLUCONATE 4% 118 ML TOPICAL LIQUID TP SCH (08:51)
[2019-05-23] MEDS: OXYBUTYNIN CHLORIDE 5 MG ER TABLET PO SCH (08:51)
[2019-05-23] MEDS: LevETIRAcetam 250 MG TABLET PO SCH ×2 (08:52→16:25)
[2019-05-23] MEDS: ASCORBIC ACID 500 MG TABLET PO SCH (08:52)
[2019-05-23] MEDS: LORATADINE 10 MG TABLET PO SCH (08:52)
[2019-05-23] MEDS: TOPIRAMATE 100 MG TABLET PO SCH ×3 (08:52→16:25)
[2019-05-23] MEDS: OMEGA-3/DHA/EPA/FISH OIL 1,000 MG CAPSULE PO SCH (08:53)
[2019-05-23] MEDS: HALOPERIDOL 5 MG TABLET PO PRN (08:53)
[2019-05-23] MEDS: MAGNESIUM OXIDE 400 MG TABLET PO SCH ×3 (08:53→16:25)
[2019-05-23] MEDS: ASPIRIN 81 MG EC TABLET PO SCH (08:54)
[2019-05-23] MEDS: OMEPRAZOLE 20 MG CAPSULE PO SCH (08:54)
[2019-05-23] MEDS: MULTIVITAMINS WITH MINERALS, THERAPEUTIC TABLET PO SCH (08:55)
[2019-05-23] MEDS: VALPROIC ACID 250 MG CAPSULE PO SCH ×2 (08:55→20:21)
[2019-05-23] MEDS: FLUoxetine HCL 20 MG CAPSULE PO SCH (08:56)
[2019-05-23] MEDS: QUEtiapine FUMARATE 200 MG TABLET PO SCH ×2 (08:56→20:21)
[2019-05-23] MEDS: DOCUSATE SODIUM 100 MG CAPSULE PO SCH (08:57)
[2019-05-23] MEDS: HALOPERIDOL 10 MG TABLET PO SCH (20:20)
[2019-05-24] MEDS: LEVOTHYROXINE SODIUM 100 MCG TABLET PO SCH (06:50)
[2019-05-24] MEDS: FERROUS SULFATE 325 MG EC TABLET PO SCH ×2 (06:50→16:06)
[2019-05-24] MEDS: DOCUSATE SODIUM 100 MG CAPSULE PO SCH (09:14)
[2019-05-24] MEDS: LORATADINE 10 MG TABLET PO SCH (09:14)
[2019-05-24] MEDS: ASPIRIN 81 MG EC TABLET PO SCH (09:15)
[2019-05-24] MEDS: OXYBUTYNIN CHLORIDE 5 MG ER TABLET PO SCH (09:15)
[2019-05-24] MEDS: VALPROIC ACID 250 MG CAPSULE PO SCH ×2 (09:15→20:36)
[2019-05-24] MEDS: OMEGA-3/DHA/EPA/FISH OIL 1,000 MG CAPSULE PO SCH (09:15)
[2019-05-24] MEDS: FLUoxetine HCL 20 MG CAPSULE PO SCH (09:16)
[2019-05-24] MEDS: OMEPRAZOLE 20 MG CAPSULE PO SCH (09:16)
[2019-05-24] MEDS: MAGNESIUM OXIDE 400 MG TABLET PO SCH ×3 (09:16→16:06)
[2019-05-24] MEDS: LevETIRAcetam 250 MG TABLET PO SCH ×2 (09:16→16:06)
[2019-05-24] MEDS: TOPIRAMATE 100 MG TABLET PO SCH ×3 (09:17→16:06)
[2019-05-24] MEDS: MULTIVITAMINS WITH MINERALS, THERAPEUTIC TABLET PO SCH (09:17)
[2019-05-24] MEDS: ASCORBIC ACID 500 MG TABLET PO SCH (09:17)
[2019-05-24] MEDS: CHLORHEXIDINE GLUCONATE 4% 118 ML TOPICAL LIQUID TP SCH (09:17)
[2019-05-24] MEDS: QUEtiapine FUMARATE 200 MG TABLET PO SCH ×2 (09:17→20:36)
[2019-05-24] MEDS: HALOPERIDOL 10 MG TABLET PO SCH (20:36)
[2019-05-25] MEDS: FERROUS SULFATE 325 MG EC TABLET PO SCH ×2 (06:34→18:49)
[2019-05-25] MEDS: LEVOTHYROXINE SODIUM 100 MCG TABLET PO SCH (06:34)
[2019-05-25] MEDS: MULTIVITAMINS WITH MINERALS, THERAPEUTIC TABLET PO SCH (08:40)
[2019-05-25] MEDS: ASPIRIN 81 MG EC TABLET PO SCH (08:40)
[2019-05-25] MEDS: OMEGA-3/DHA/EPA/FISH OIL 1,000 MG CAPSULE PO SCH (08:40)
[2019-05-25] MEDS: QUEtiapine FUMARATE 200 MG TABLET PO SCH ×2 (08:40→21:13)
[2019-05-25] MEDS: OMEPRAZOLE 20 MG CAPSULE PO SCH (08:41)
[2019-05-25] MEDS: LORATADINE 10 MG TABLET PO SCH (08:41)
[2019-05-25] MEDS: FLUoxetine HCL 20 MG CAPSULE PO SCH (08:41)
[2019-05-25] MEDS: MAGNESIUM OXIDE 400 MG TABLET PO SCH ×3 (08:41→18:49)
[2019-05-25] MEDS: DOCUSATE SODIUM 100 MG CAPSULE PO SCH (08:41)
[2019-05-25] MEDS: VALPROIC ACID 250 MG CAPSULE PO SCH ×2 (08:44→21:13)
[2019-05-25] MEDS: ASCORBIC ACID 500 MG TABLET PO SCH (08:44)
[2019-05-25] MEDS: LevETIRAcetam 250 MG TABLET PO SCH ×2 (08:45→18:49)
[2019-05-25] MEDS: TOPIRAMATE 100 MG TABLET PO SCH ×3 (08:45→18:49)
[2019-05-25] MEDS: OXYBUTYNIN CHLORIDE 5 MG ER TABLET PO SCH (08:46)
[2019-05-25] MEDS: CHLORHEXIDINE GLUCONATE 4% 118 ML TOPICAL LIQUID TP SCH (08:46)
[2019-05-25 16:02] VITALS: BP 117/81
[2019-05-25] MEDS: HALOPERIDOL 10 MG TABLET PO SCH (21:14)
[2019-05-26] MEDS: FERROUS SULFATE 325 MG EC TABLET PO SCH ×2 (06:52→18:50)
[2019-05-26] MEDS: LEVOTHYROXINE SODIUM 100 MCG TABLET PO SCH (06:52)
[2019-05-26] MEDS: ASPIRIN 81 MG EC TABLET PO SCH (08:03)
[2019-05-26] MEDS: MAGNESIUM OXIDE 400 MG TABLET PO SCH ×3 (08:03→18:51)
[2019-05-26] MEDS: OMEPRAZOLE 20 MG CAPSULE PO SCH (08:03)
[2019-05-26] MEDS: MULTIVITAMINS WITH MINERALS, THERAPEUTIC TABLET PO SCH (08:03)
[2019-05-26] MEDS: OMEGA-3/DHA/EPA/FISH OIL 1,000 MG CAPSULE PO SCH (08:03)
[2019-05-26] MEDS: LevETIRAcetam 250 MG TABLET PO SCH ×2 (08:03→19:36)
[2019-05-26] MEDS: OXYBUTYNIN CHLORIDE 5 MG ER TABLET PO SCH (08:04)
[2019-05-26] MEDS: VALPROIC ACID 250 MG CAPSULE PO SCH ×2 (08:04→21:05)
[2019-05-26] MEDS: FLUoxetine HCL 20 MG CAPSULE PO SCH (08:04)
[2019-05-26] MEDS: QUEtiapine FUMARATE 200 MG TABLET PO SCH ×2 (08:04→21:05)
[2019-05-26] MEDS: DOCUSATE SODIUM 100 MG CAPSULE PO SCH (08:04)
[2019-05-26] MEDS: LORATADINE 10 MG TABLET PO SCH (08:04)
[2019-05-26] MEDS: ASCORBIC ACID 500 MG TABLET PO SCH (08:06)
[2019-05-26] MEDS: TOPIRAMATE 100 MG TABLET PO SCH ×3 (08:06→18:50)
[2019-05-26] MEDS: CHLORHEXIDINE GLUCONATE 4% 118 ML TOPICAL LIQUID TP SCH (08:06)
[2019-05-26 10:33] VITALS: BP 104/66
[2019-05-26] MEDS: HALOPERIDOL 10 MG TABLET PO SCH (21:05)
[2019-05-27] MEDS: LEVOTHYROXINE SODIUM 100 MCG TABLET PO SCH (06:35)
[2019-05-27] MEDS: FERROUS SULFATE 325 MG EC TABLET PO SCH ×2 (06:35→16:49)
[2019-05-27 08:58] VITALS: BP 102/62
[2019-05-27] MEDS: FLUoxetine HCL 20 MG CAPSULE PO SCH (12:04)
[2019-05-27] MEDS: VALPROIC ACID 250 MG CAPSULE PO SCH ×2 (12:04→20:04)
[2019-05-27] MEDS: LevETIRAcetam 250 MG TABLET PO SCH ×2 (12:05→16:49)
[2019-05-27] MEDS: ASCORBIC ACID 500 MG TABLET PO SCH (12:05)
[2019-05-27] MEDS: OMEGA-3/DHA/EPA/FISH OIL 1,000 MG CAPSULE PO SCH (12:05)
[2019-05-27] MEDS: QUEtiapine FUMARATE 200 MG TABLET PO SCH ×2 (12:05→20:04)
[2019-05-27] MEDS: TOPIRAMATE 100 MG TABLET PO SCH ×3 (12:05→16:49)
[2019-05-27] MEDS: ASPIRIN 81 MG EC TABLET PO SCH (12:05)
[2019-05-27] MEDS: MAGNESIUM OXIDE 400 MG TABLET PO SCH ×3 (12:05→16:49)
[2019-05-27] MEDS: DOCUSATE SODIUM 100 MG CAPSULE PO SCH (12:06)
[2019-05-27] MEDS: OMEPRAZOLE 20 MG CAPSULE PO SCH (12:06)
[2019-05-27] MEDS: OXYBUTYNIN CHLORIDE 5 MG ER TABLET PO SCH (12:06)
[2019-05-27] MEDS: HALOPERIDOL 5 MG TABLET PO PRN (12:06)
[2019-05-27] MEDS: MULTIVITAMINS WITH MINERALS, THERAPEUTIC TABLET PO SCH (12:06)
[2019-05-27] MEDS: LORATADINE 10 MG TABLET PO SCH (12:06)
[2019-05-27] MEDS: CHLORHEXIDINE GLUCONATE 4% 118 ML TOPICAL LIQUID TP SCH (12:07)
[2019-05-27 16:40] VITALS: BP 103/56
[2019-05-27] MEDS: HALOPERIDOL 10 MG TABLET PO SCH (20:04)
[2019-05-28] MEDS: FERROUS SULFATE 325 MG EC TABLET PO SCH ×2 (06:45→17:04)
[2019-05-28] MEDS: LEVOTHYROXINE SODIUM 100 MCG TABLET PO SCH (06:46)
[2019-05-28] MEDS: FLUoxetine HCL 20 MG CAPSULE PO SCH (09:36)
[2019-05-28] MEDS: QUEtiapine FUMARATE 200 MG TABLET PO SCH ×2 (09:36→21:07)
[2019-05-28] MEDS: MAGNESIUM OXIDE 400 MG TABLET PO SCH ×3 (09:37→17:04)
[2019-05-28] MEDS: DOCUSATE SODIUM 100 MG CAPSULE PO SCH (09:37)
[2019-05-28] MEDS: ASPIRIN 81 MG EC TABLET PO SCH (09:37)
[2019-05-28] MEDS: VALPROIC ACID 250 MG CAPSULE PO SCH ×2 (09:37→21:07)
[2019-05-28] MEDS: OMEGA-3/DHA/EPA/FISH OIL 1,000 MG CAPSULE PO SCH (09:37)
[2019-05-28] MEDS: OMEPRAZOLE 20 MG CAPSULE PO SCH (09:37)
[2019-05-28] MEDS: MULTIVITAMINS WITH MINERALS, THERAPEUTIC TABLET PO SCH (09:37)
[2019-05-28] MEDS: LORATADINE 10 MG TABLET PO SCH (09:37)
[2019-05-28] MEDS: LevETIRAcetam 250 MG TABLET PO SCH ×2 (09:38→17:05)
[2019-05-28] MEDS: ASCORBIC ACID 500 MG TABLET PO SCH (09:39)
[2019-05-28] MEDS: TOPIRAMATE 100 MG TABLET PO SCH ×3 (09:39→17:05)
[2019-05-28] MEDS: OXYBUTYNIN CHLORIDE 5 MG ER TABLET PO SCH (09:39)
[2019-05-28] MEDS: CHLORHEXIDINE GLUCONATE 4% 118 ML TOPICAL LIQUID TP SCH (09:53)
[2019-05-28 16:15] VITALS: BP 109/71
[2019-05-28] MEDS: HALOPERIDOL 10 MG TABLET PO SCH (21:07)
[2019-05-29] MEDS: LEVOTHYROXINE SODIUM 100 MCG TABLET PO SCH (06:47)
[2019-05-29] MEDS: FERROUS SULFATE 325 MG EC TABLET PO SCH ×2 (06:47→17:03)
[2019-05-29] MEDS: LORATADINE 10 MG TABLET PO SCH (08:12)
[2019-05-29] MEDS: OMEPRAZOLE 20 MG CAPSULE PO SCH (08:12)
[2019-05-29] MEDS: DOCUSATE SODIUM 100 MG CAPSULE PO SCH (08:12)
[2019-05-29] MEDS: OMEGA-3/DHA/EPA/FISH OIL 1,000 MG CAPSULE PO SCH (08:12)
[2019-05-29] MEDS: MULTIVITAMINS WITH MINERALS, THERAPEUTIC TABLET PO SCH (08:13)
[2019-05-29] MEDS: FLUoxetine HCL 20 MG CAPSULE PO SCH (08:13)
[2019-05-29] MEDS: ASPIRIN 81 MG EC TABLET PO SCH (08:13)
[2019-05-29] MEDS: LevETIRAcetam 250 MG TABLET PO SCH ×2 (08:13→17:03)
[2019-05-29] MEDS: VALPROIC ACID 250 MG CAPSULE PO SCH ×2 (08:13→21:14)
[2019-05-29] MEDS: ASCORBIC ACID 500 MG TABLET PO SCH (08:14)
[2019-05-29] MEDS: OXYBUTYNIN CHLORIDE 5 MG ER TABLET PO SCH (08:14)
[2019-05-29] MEDS: TOPIRAMATE 100 MG TABLET PO SCH ×3 (08:14→17:03)
[2019-05-29] MEDS: QUEtiapine FUMARATE 200 MG TABLET PO SCH ×2 (08:17→21:14)
[2019-05-29] MEDS: MAGNESIUM OXIDE 400 MG TABLET PO SCH ×3 (08:17→17:03)
[2019-05-29] MEDS: CHLORHEXIDINE GLUCONATE 4% 118 ML TOPICAL LIQUID TP SCH (08:27)
[2019-05-29 11:35] VITALS: BP 145/69
[2019-05-29] MEDS: HALOPERIDOL 10 MG TABLET PO SCH (21:14)
[2019-05-30] MEDS: FERROUS SULFATE 325 MG EC TABLET PO SCH ×2 (07:11→18:07)
[2019-05-30] MEDS: LEVOTHYROXINE SODIUM 100 MCG TABLET PO SCH (07:11)
[2019-05-30 09:16] VITALS: BP 105/74
[2019-05-30] MEDS: MAGNESIUM OXIDE 400 MG TABLET PO SCH ×3 (09:20→18:07)
[2019-05-30] MEDS: DOCUSATE SODIUM 100 MG CAPSULE PO SCH (09:20)
[2019-05-30] MEDS: OMEGA-3/DHA/EPA/FISH OIL 1,000 MG CAPSULE PO SCH (09:20)
[2019-05-30] MEDS: ASPIRIN 81 MG EC TABLET PO SCH (09:20)
[2019-05-30] MEDS: LORATADINE 10 MG TABLET PO SCH (09:20)
[2019-05-30] MEDS: CHLORHEXIDINE GLUCONATE 4% 118 ML TOPICAL LIQUID TP SCH (09:21)
[2019-05-30] MEDS: MULTIVITAMINS WITH MINERALS, THERAPEUTIC TABLET PO SCH (09:21)
[2019-05-30] MEDS: QUEtiapine FUMARATE 200 MG TABLET PO SCH ×2 (09:21→20:43)
[2019-05-30] MEDS: VALPROIC ACID 250 MG CAPSULE PO SCH ×2 (09:23→20:43)
[2019-05-30] MEDS: OXYBUTYNIN CHLORIDE 5 MG ER TABLET PO SCH (09:23)
[2019-05-30] MEDS: LevETIRAcetam 250 MG TABLET PO SCH ×2 (09:23→18:07)
[2019-05-30] MEDS: TOPIRAMATE 100 MG TABLET PO SCH ×3 (09:23→18:07)
[2019-05-30] MEDS: ASCORBIC ACID 500 MG TABLET PO SCH (09:23)
[2019-05-30] MEDS: FLUoxetine HCL 20 MG CAPSULE PO SCH (09:26)
[2019-05-30] MEDS: OMEPRAZOLE 20 MG CAPSULE PO SCH (09:26)
[2019-05-30] MEDS: HALOPERIDOL 5 MG TABLET PO PRN (09:26)
[2019-05-30] MEDS: HALOPERIDOL 10 MG TABLET PO SCH (20:43)
[2019-05-31] MEDS: FERROUS SULFATE 325 MG EC TABLET PO SCH ×2 (06:53→17:44)
[2019-05-31] MEDS: LEVOTHYROXINE SODIUM 100 MCG TABLET PO SCH (06:53)
[2019-05-31] MEDS: MULTIVITAMINS WITH MINERALS, THERAPEUTIC TABLET PO SCH (08:16)
[2019-05-31] MEDS: LORATADINE 10 MG TABLET PO SCH (08:16)
[2019-05-31] MEDS: OXYBUTYNIN CHLORIDE 5 MG ER TABLET PO SCH (08:16)
[2019-05-31] MEDS: DOCUSATE SODIUM 100 MG CAPSULE PO SCH (08:17)
[2019-05-31] MEDS: VALPROIC ACID 250 MG CAPSULE PO SCH ×2 (08:18→20:02)
[2019-05-31] MEDS: QUEtiapine FUMARATE 200 MG TABLET PO SCH ×2 (08:22→20:02)
[2019-05-31] MEDS: LevETIRAcetam 250 MG TABLET PO SCH ×2 (08:23→17:44)
[2019-05-31] MEDS: OMEPRAZOLE 20 MG CAPSULE PO SCH (08:23)
[2019-05-31] MEDS: ASCORBIC ACID 500 MG TABLET PO SCH (08:24)
[2019-05-31] MEDS: TOPIRAMATE 100 MG TABLET PO SCH ×3 (08:24→17:44)
[2019-05-31] MEDS: FLUoxetine HCL 20 MG CAPSULE PO SCH (08:24)
[2019-05-31] MEDS: ASPIRIN 81 MG EC TABLET PO SCH (08:25)
[2019-05-31] MEDS: MAGNESIUM OXIDE 400 MG TABLET PO SCH ×3 (08:25→17:44)
[2019-05-31] MEDS: OMEGA-3/DHA/EPA/FISH OIL 1,000 MG CAPSULE PO SCH (08:25)
[2019-05-31] MEDS: HALOPERIDOL 5 MG TABLET PO PRN (08:26)
[2019-05-31] MEDS: CHLORHEXIDINE GLUCONATE 4% 118 ML TOPICAL LIQUID TP SCH (08:26)
[2019-05-31] MEDS: HALOPERIDOL 10 MG TABLET PO SCH (20:02)
[2019-06-01] MEDS: LEVOTHYROXINE SODIUM 100 MCG TABLET PO SCH (06:57)
[2019-06-01] MEDS: FERROUS SULFATE 325 MG EC TABLET PO SCH ×2 (06:57→16:52)
[2019-06-01] MEDS: ASCORBIC ACID 500 MG TABLET PO SCH (08:55)
[2019-06-01] MEDS: LevETIRAcetam 250 MG TABLET PO SCH ×2 (08:55→16:52)
[2019-06-01] MEDS: VALPROIC ACID 250 MG CAPSULE PO SCH ×2 (08:55→21:44)
[2019-06-01] MEDS: CHLORHEXIDINE GLUCONATE 4% 118 ML TOPICAL LIQUID TP SCH (08:55)
[2019-06-01] MEDS: ASPIRIN 81 MG EC TABLET PO SCH (08:56)
[2019-06-01] MEDS: HALOPERIDOL 5 MG TABLET PO PRN (08:56)
[2019-06-01] MEDS: QUEtiapine FUMARATE 200 MG TABLET PO SCH ×2 (08:56→21:45)
[2019-06-01] MEDS: TOPIRAMATE 100 MG TABLET PO SCH ×3 (08:56→16:52)
[2019-06-01] MEDS: MAGNESIUM OXIDE 400 MG TABLET PO SCH ×3 (08:56→16:51)
[2019-06-01] MEDS: DOCUSATE SODIUM 100 MG CAPSULE PO SCH (08:56)
[2019-06-01] MEDS: MULTIVITAMINS WITH MINERALS, THERAPEUTIC TABLET PO SCH (08:56)
[2019-06-01] MEDS: OMEPRAZOLE 20 MG CAPSULE PO SCH (08:56)
[2019-06-01] MEDS: OXYBUTYNIN CHLORIDE 5 MG ER TABLET PO SCH (08:56)
[2019-06-01] MEDS: FLUoxetine HCL 20 MG CAPSULE PO SCH (08:57)
[2019-06-01] MEDS: LORATADINE 10 MG TABLET PO SCH (08:57)
[2019-06-01] MEDS: OMEGA-3/DHA/EPA/FISH OIL 1,000 MG CAPSULE PO SCH (08:58)
[2019-06-01 09:43] VITALS: BP 166/67
[2019-06-01 16:06] VITALS: BP 124/77
[2019-06-01] MEDS: HALOPERIDOL 10 MG TABLET PO SCH (21:44)
[2019-06-02] MEDS: LEVOTHYROXINE SODIUM 100 MCG TABLET PO SCH (06:35)
[2019-06-02] MEDS: FERROUS SULFATE 325 MG EC TABLET PO SCH ×2 (06:35→17:22)
[2019-06-02] MEDS: FLUoxetine HCL 20 MG CAPSULE PO SCH (10:01)
[2019-06-02] MEDS: CHLORHEXIDINE GLUCONATE 4% 118 ML TOPICAL LIQUID TP SCH (10:01)
[2019-06-02] MEDS: MULTIVITAMINS WITH MINERALS, THERAPEUTIC TABLET PO SCH (10:01)
[2019-06-02] MEDS: OMEPRAZOLE 20 MG CAPSULE PO SCH (10:01)
[2019-06-02] MEDS: VALPROIC ACID 250 MG CAPSULE PO SCH ×2 (10:01→20:25)
[2019-06-02] MEDS: OMEGA-3/DHA/EPA/FISH OIL 1,000 MG CAPSULE PO SCH (10:02)
[2019-06-02] MEDS: TOPIRAMATE 100 MG TABLET PO SCH ×3 (10:02→17:21)
[2019-06-02] MEDS: LORATADINE 10 MG TABLET PO SCH (10:02)
[2019-06-02] MEDS: HALOPERIDOL 5 MG TABLET PO PRN (10:02)
[2019-06-02] MEDS: ASCORBIC ACID 500 MG TABLET PO SCH (10:02)
[2019-06-02] MEDS: QUEtiapine FUMARATE 200 MG TABLET PO SCH ×2 (10:03→20:25)
[2019-06-02] MEDS: OXYBUTYNIN CHLORIDE 5 MG ER TABLET PO SCH (10:03)
[2019-06-02] MEDS: MAGNESIUM OXIDE 400 MG TABLET PO SCH ×3 (10:03→17:21)
[2019-06-02] MEDS: LevETIRAcetam 250 MG TABLET PO SCH ×2 (10:03→17:21)
[2019-06-02] MEDS: ASPIRIN 81 MG EC TABLET PO SCH (10:03)
[2019-06-02] MEDS: DOCUSATE SODIUM 100 MG CAPSULE PO SCH (10:05)
[2019-06-02 16:05] VITALS: BP 114/78
[2019-06-02] MEDS: HALOPERIDOL 10 MG TABLET PO SCH (20:25)
[2019-06-03] MEDS: FERROUS SULFATE 325 MG EC TABLET PO SCH ×2 (06:56→21:34)
[2019-06-03] MEDS: LEVOTHYROXINE SODIUM 100 MCG TABLET PO SCH (06:56)
[2019-06-03] MEDS: OMEGA-3/DHA/EPA/FISH OIL 1,000 MG CAPSULE PO SCH (09:00)
[2019-06-03] MEDS: DOCUSATE SODIUM 100 MG CAPSULE PO SCH (09:00)
[2019-06-03] MEDS: ASCORBIC ACID 500 MG TABLET PO SCH (09:00)
[2019-06-03] MEDS: VALPROIC ACID 250 MG CAPSULE PO SCH ×2 (09:00→22:48)
[2019-06-03] MEDS: FLUoxetine HCL 20 MG CAPSULE PO SCH (09:00)
[2019-06-03] MEDS: OMEPRAZOLE 20 MG CAPSULE PO SCH (09:00)
[2019-06-03] MEDS: TOPIRAMATE 100 MG TABLET PO SCH ×3 (09:00→21:34)
[2019-06-03] MEDS: LevETIRAcetam 250 MG TABLET PO SCH ×2 (09:00→21:34)
[2019-06-03] MEDS: MULTIVITAMINS WITH MINERALS, THERAPEUTIC TABLET PO SCH (09:00)
[2019-06-03] MEDS: MAGNESIUM OXIDE 400 MG TABLET PO SCH ×3 (09:00→21:34)
[2019-06-03] MEDS: LORATADINE 10 MG TABLET PO SCH (09:00)
[2019-06-03] MEDS: OXYBUTYNIN CHLORIDE 5 MG ER TABLET PO SCH (09:00)
[2019-06-03] MEDS: QUEtiapine FUMARATE 200 MG TABLET PO SCH ×2 (09:00→22:48)
[2019-06-03] MEDS: ASPIRIN 81 MG EC TABLET PO SCH (09:00)
[2019-06-03] MEDS: HALOPERIDOL 5 MG TABLET PO PRN (14:04)
[2019-06-03] MEDS: CHLORHEXIDINE GLUCONATE 4% 118 ML TOPICAL LIQUID TP SCH (14:06)
[2019-06-03] MEDS: HALOPERIDOL 10 MG TABLET PO SCH (22:48)
[2019-06-04] MEDS: LEVOTHYROXINE SODIUM 100 MCG TABLET PO SCH (07:01)
[2019-06-04] MEDS: FERROUS SULFATE 325 MG EC TABLET PO SCH ×2 (07:01→16:42)
[2019-06-04] MEDS: HALOPERIDOL 5 MG TABLET PO PRN (08:23)
[2019-06-04] MEDS: ASCORBIC ACID 500 MG TABLET PO SCH (08:23)
[2019-06-04] MEDS: FLUoxetine HCL 20 MG CAPSULE PO SCH (08:23)
[2019-06-04] MEDS: VALPROIC ACID 250 MG CAPSULE PO SCH ×2 (08:23→20:41)
[2019-06-04] MEDS: MULTIVITAMINS WITH MINERALS, THERAPEUTIC TABLET PO SCH (08:24)
[2019-06-04] MEDS: OMEPRAZOLE 20 MG CAPSULE PO SCH (08:24)
[2019-06-04] MEDS: QUEtiapine FUMARATE 200 MG TABLET PO SCH ×2 (08:24→20:41)
[2019-06-04] MEDS: TOPIRAMATE 100 MG TABLET PO SCH ×3 (08:24→16:42)
[2019-06-04] MEDS: DOCUSATE SODIUM 100 MG CAPSULE PO SCH (08:24)
[2019-06-04] MEDS: OMEGA-3/DHA/EPA/FISH OIL 1,000 MG CAPSULE PO SCH (08:24)
[2019-06-04] MEDS: LORATADINE 10 MG TABLET PO SCH (08:24)
[2019-06-04] MEDS: OXYBUTYNIN CHLORIDE 5 MG ER TABLET PO SCH (08:24)
[2019-06-04] MEDS: ASPIRIN 81 MG EC TABLET PO SCH (08:24)
[2019-06-04] MEDS: MAGNESIUM OXIDE 400 MG TABLET PO SCH ×3 (08:25→16:42)
[2019-06-04] MEDS: LevETIRAcetam 250 MG TABLET PO SCH ×2 (08:25→16:42)
[2019-06-04 08:33] VITALS: BP 109/64
[2019-06-04] MEDS: CHLORHEXIDINE GLUCONATE 4% 118 ML TOPICAL LIQUID TP SCH (12:29)
[2019-06-04] MEDS: HALOPERIDOL 10 MG TABLET PO SCH (20:41)
[2019-06-05 04:16] VITALS: BP 138/85
[2019-06-05] MEDS: FERROUS SULFATE 325 MG EC TABLET PO SCH ×2 (06:42→17:25)
[2019-06-05] MEDS: LEVOTHYROXINE SODIUM 100 MCG TABLET PO SCH (06:43)
[2019-06-05] MEDS: OMEPRAZOLE 20 MG CAPSULE PO SCH (08:11)
[2019-06-05] MEDS: MAGNESIUM OXIDE 400 MG TABLET PO SCH ×3 (08:11→17:25)
[2019-06-05] MEDS: DOCUSATE SODIUM 100 MG CAPSULE PO SCH (08:12)
[2019-06-05] MEDS: LORATADINE 10 MG TABLET PO SCH (08:12)
[2019-06-05] MEDS: QUEtiapine FUMARATE 200 MG TABLET PO SCH ×2 (08:12→20:08)
[2019-06-05] MEDS: OMEGA-3/DHA/EPA/FISH OIL 1,000 MG CAPSULE PO SCH (08:12)
[2019-06-05] MEDS: MULTIVITAMINS WITH MINERALS, THERAPEUTIC TABLET PO SCH (08:12)
[2019-06-05] MEDS: ASPIRIN 81 MG EC TABLET PO SCH (08:12)
[2019-06-05] MEDS: HALOPERIDOL 5 MG TABLET PO PRN (08:12)
[2019-06-05] MEDS: FLUoxetine HCL 20 MG CAPSULE PO SCH (08:12)
[2019-06-05] MEDS: LevETIRAcetam 250 MG TABLET PO SCH ×2 (08:13→17:25)
[2019-06-05] MEDS: VALPROIC ACID 250 MG CAPSULE PO SCH ×2 (08:13→20:07)
[2019-06-05] MEDS: TOPIRAMATE 100 MG TABLET PO SCH ×3 (08:14→17:26)
[2019-06-05] MEDS: OXYBUTYNIN CHLORIDE 5 MG ER TABLET PO SCH (08:14)
[2019-06-05] MEDS: ASCORBIC ACID 500 MG TABLET PO SCH (08:14)
[2019-06-05 11:45] VITALS: BP 149/94
[2019-06-05] MEDS: CHLORHEXIDINE GLUCONATE 4% 118 ML TOPICAL LIQUID TP SCH (12:37)
[2019-06-05] MEDS: HALOPERIDOL 10 MG TABLET PO SCH (20:08)
[2019-06-06] MEDS: FERROUS SULFATE 325 MG EC TABLET PO SCH ×2 (06:44→16:44)
[2019-06-06] MEDS: LEVOTHYROXINE SODIUM 100 MCG TABLET PO SCH (06:44)
[2019-06-06] MEDS: OMEPRAZOLE 20 MG CAPSULE PO SCH (08:13)
[2019-06-06] MEDS: LevETIRAcetam 250 MG TABLET PO SCH ×2 (08:13→16:44)
[2019-06-06] MEDS: ASCORBIC ACID 500 MG TABLET PO SCH (08:13)
[2019-06-06] MEDS: DOCUSATE SODIUM 100 MG CAPSULE PO SCH (08:13)
[2019-06-06] MEDS: LORATADINE 10 MG TABLET PO SCH (08:13)
[2019-06-06] MEDS: TOPIRAMATE 100 MG TABLET PO SCH ×3 (08:13→16:44)
[2019-06-06] MEDS: OXYBUTYNIN CHLORIDE 5 MG ER TABLET PO SCH (08:13)
[2019-06-06] MEDS: OMEGA-3/DHA/EPA/FISH OIL 1,000 MG CAPSULE PO SCH (08:13)
[2019-06-06] MEDS: MULTIVITAMINS WITH MINERALS, THERAPEUTIC TABLET PO SCH (08:14)
[2019-06-06] MEDS: MAGNESIUM OXIDE 400 MG TABLET PO SCH ×3 (08:14→16:44)
[2019-06-06] MEDS: VALPROIC ACID 250 MG CAPSULE PO SCH ×2 (08:14→20:03)
[2019-06-06] MEDS: FLUoxetine HCL 20 MG CAPSULE PO SCH (08:14)
[2019-06-06] MEDS: ASPIRIN 81 MG EC TABLET PO SCH (08:15)
[2019-06-06] MEDS: QUEtiapine FUMARATE 200 MG TABLET PO SCH ×2 (08:15→20:03)
[2019-06-06 09:47] VITALS: BP 121/99
[2019-06-06] MEDS: CHLORHEXIDINE GLUCONATE 4% 118 ML TOPICAL LIQUID TP SCH (12:42)
[2019-06-06] MEDS: HALOPERIDOL 10 MG TABLET PO SCH (20:03)
[2019-06-07] MEDS: LEVOTHYROXINE SODIUM 100 MCG TABLET PO SCH (06:48)
[2019-06-07] MEDS: FERROUS SULFATE 325 MG EC TABLET PO SCH ×2 (06:49→16:26)
[2019-06-07] MEDS: MULTIVITAMINS WITH MINERALS, THERAPEUTIC TABLET PO SCH (08:06)
[2019-06-07] MEDS: OMEPRAZOLE 20 MG CAPSULE PO SCH (08:06)
[2019-06-07] MEDS: LORATADINE 10 MG TABLET PO SCH (08:07)
[2019-06-07] MEDS: FLUoxetine HCL 20 MG CAPSULE PO SCH (08:07)
[2019-06-07] MEDS: DOCUSATE SODIUM 100 MG CAPSULE PO SCH (08:07)
[2019-06-07] MEDS: QUEtiapine FUMARATE 200 MG TABLET PO SCH ×2 (08:07→20:08)
[2019-06-07] MEDS: ASCORBIC ACID 500 MG TABLET PO SCH (08:07)
[2019-06-07] MEDS: MAGNESIUM OXIDE 400 MG TABLET PO SCH ×3 (08:07→16:26)
[2019-06-07] MEDS: OMEGA-3/DHA/EPA/FISH OIL 1,000 MG CAPSULE PO SCH (08:07)
[2019-06-07] MEDS: ASPIRIN 81 MG EC TABLET PO SCH (08:07)
[2019-06-07] MEDS: LevETIRAcetam 250 MG TABLET PO SCH ×2 (08:08→16:26)
[2019-06-07] MEDS: TOPIRAMATE 100 MG TABLET PO SCH ×3 (08:08→16:26)
[2019-06-07] MEDS: OXYBUTYNIN CHLORIDE 5 MG ER TABLET PO SCH (08:08)
[2019-06-07] MEDS: VALPROIC ACID 250 MG CAPSULE PO SCH ×2 (08:09→20:08)
[2019-06-07] MEDS: CHLORHEXIDINE GLUCONATE 4% 118 ML TOPICAL LIQUID TP SCH (08:10)
[2019-06-07] MEDS: GENTAMICIN SULFATE 0.3% OPHTHALMIC SOLUTION 5 ML OD SCH ×4 (08:10→20:08)
[2019-06-07] MEDS ORDERED: GENTAMICIN SULFATE 0.3% OPHTHALMIC SOLUTION 5 ML OD ONE (09:00)
[2019-06-07 18:23] VITALS: BP 147/70
[2019-06-07] MEDS: HALOPERIDOL 10 MG TABLET PO SCH (20:08)
[2019-06-08] MEDS: FERROUS SULFATE 325 MG EC TABLET PO SCH ×2 (06:34→16:44)
[2019-06-08] MEDS: LEVOTHYROXINE SODIUM 100 MCG TABLET PO SCH (06:34)
[2019-06-08] MEDS: OMEPRAZOLE 20 MG CAPSULE PO SCH (08:21)
[2019-06-08] MEDS: TOPIRAMATE 100 MG TABLET PO SCH ×3 (08:21→16:44)
[2019-06-08] MEDS: OMEGA-3/DHA/EPA/FISH OIL 1,000 MG CAPSULE PO SCH (08:21)
[2019-06-08] MEDS: OXYBUTYNIN CHLORIDE 5 MG ER TABLET PO SCH (08:21)
[2019-06-08] MEDS: ASPIRIN 81 MG EC TABLET PO SCH (08:21)
[2019-06-08] MEDS: DOCUSATE SODIUM 100 MG CAPSULE PO SCH (08:21)
[2019-06-08] MEDS: LORATADINE 10 MG TABLET PO SCH (08:21)
[2019-06-08] MEDS: FLUoxetine HCL 20 MG CAPSULE PO SCH (08:21)
[2019-06-08] MEDS: ASCORBIC ACID 500 MG TABLET PO SCH (08:21)
[2019-06-08] MEDS: VALPROIC ACID 250 MG CAPSULE PO SCH ×2 (08:22→20:04)
[2019-06-08] MEDS: MULTIVITAMINS WITH MINERALS, THERAPEUTIC TABLET PO SCH (08:22)
[2019-06-08] MEDS: LevETIRAcetam 250 MG TABLET PO SCH ×2 (08:22→16:44)
[2019-06-08] MEDS: QUEtiapine FUMARATE 200 MG TABLET PO SCH ×2 (08:22→20:04)
[2019-06-08] MEDS: MAGNESIUM OXIDE 400 MG TABLET PO SCH ×3 (08:22→16:44)
[2019-06-08 08:37] VITALS: BP 107/42
[2019-06-08] MEDS: CHLORHEXIDINE GLUCONATE 4% 118 ML TOPICAL LIQUID TP SCH (09:00)
[2019-06-08] MEDS: GENTAMICIN SULFATE 0.3% OPHTHALMIC SOLUTION 5 ML OD SCH ×4 (09:00→20:05)
[2019-06-08] MEDS: HALOPERIDOL 5 MG TABLET PO PRN (17:16)
[2019-06-08] MEDS: HALOPERIDOL 10 MG TABLET PO SCH (20:05)
[2019-06-09] MEDS: LEVOTHYROXINE SODIUM 100 MCG TABLET PO SCH (06:33)
[2019-06-09] MEDS: FERROUS SULFATE 325 MG EC TABLET PO SCH ×2 (06:33→18:43)
[2019-06-09 08:00] VITALS: BP 150/76
[2019-06-09] MEDS: OMEGA-3/DHA/EPA/FISH OIL 1,000 MG CAPSULE PO SCH (08:25)
[2019-06-09] MEDS: VALPROIC ACID 250 MG CAPSULE PO SCH ×2 (08:25→20:42)
[2019-06-09] MEDS: DOCUSATE SODIUM 100 MG CAPSULE PO SCH (08:25)
[2019-06-09] MEDS: QUEtiapine FUMARATE 200 MG TABLET PO SCH ×2 (08:25→20:41)
[2019-06-09] MEDS: FLUoxetine HCL 20 MG CAPSULE PO SCH (08:25)
[2019-06-09] MEDS: MAGNESIUM OXIDE 400 MG TABLET PO SCH ×3 (08:26→18:43)
[2019-06-09] MEDS: OXYBUTYNIN CHLORIDE 5 MG ER TABLET PO SCH (08:26)
[2019-06-09] MEDS: OMEPRAZOLE 20 MG CAPSULE PO SCH (08:26)
[2019-06-09] MEDS: TOPIRAMATE 100 MG TABLET PO SCH ×3 (08:26→18:42)
[2019-06-09] MEDS: ASCORBIC ACID 500 MG TABLET PO SCH (08:26)
[2019-06-09] MEDS: ASPIRIN 81 MG EC TABLET PO SCH (08:26)
[2019-06-09] MEDS: LORATADINE 10 MG TABLET PO SCH (08:27)
[2019-06-09] MEDS: LevETIRAcetam 250 MG TABLET PO SCH ×2 (08:27→18:42)
[2019-06-09] MEDS: MULTIVITAMINS WITH MINERALS, THERAPEUTIC TABLET PO SCH (08:27)
[2019-06-09] MEDS: CHLORHEXIDINE GLUCONATE 4% 118 ML TOPICAL LIQUID TP SCH (09:00)
[2019-06-09] MEDS: GENTAMICIN SULFATE 0.3% OPHTHALMIC SOLUTION 5 ML OD SCH ×4 (09:00→20:44)
[2019-06-09] MEDS: HALOPERIDOL 10 MG TABLET PO SCH (20:42)
[2019-06-10] MEDS: FERROUS SULFATE 325 MG EC TABLET PO SCH ×2 (06:51→15:56)
[2019-06-10] MEDS: LEVOTHYROXINE SODIUM 100 MCG TABLET PO SCH (06:51)
[2019-06-10] MEDS: CHLORHEXIDINE GLUCONATE 4% 118 ML TOPICAL LIQUID TP SCH (08:11)
[2019-06-10] MEDS: ASCORBIC ACID 500 MG TABLET PO SCH (08:12)
[2019-06-10] MEDS: VALPROIC ACID 250 MG CAPSULE PO SCH ×2 (08:12→20:07)
[2019-06-10] MEDS: OMEGA-3/DHA/EPA/FISH OIL 1,000 MG CAPSULE PO SCH (08:12)
[2019-06-10] MEDS: ASPIRIN 81 MG EC TABLET PO SCH (08:12)
[2019-06-10] MEDS: LevETIRAcetam 250 MG TABLET PO SCH ×2 (08:12→15:56)
[2019-06-10] MEDS: TOPIRAMATE 100 MG TABLET PO SCH ×3 (08:12→15:54)
[2019-06-10] MEDS: LORATADINE 10 MG TABLET PO SCH (08:14)
[2019-06-10] MEDS: QUEtiapine FUMARATE 200 MG TABLET PO SCH ×2 (08:14→20:07)
[2019-06-10] MEDS: MAGNESIUM OXIDE 400 MG TABLET PO SCH ×3 (08:14→15:56)
[2019-06-10] MEDS: FLUoxetine HCL 20 MG CAPSULE PO SCH (08:14)
[2019-06-10] MEDS: MULTIVITAMINS WITH MINERALS, THERAPEUTIC TABLET PO SCH (08:14)
[2019-06-10] MEDS: OMEPRAZOLE 20 MG CAPSULE PO SCH (08:14)
[2019-06-10] MEDS: GENTAMICIN SULFATE 0.3% OPHTHALMIC SOLUTION 5 ML OD SCH ×5 (08:14→21:00)
[2019-06-10] MEDS: OXYBUTYNIN CHLORIDE 5 MG ER TABLET PO SCH (08:15)
[2019-06-10] MEDS: DOCUSATE SODIUM 100 MG CAPSULE PO SCH (08:16)
[2019-06-10] MEDS: HALOPERIDOL 5 MG TABLET PO PRN (08:24)
[2019-06-10 10:05] VITALS: BP 131/66
[2019-06-10 16:49] VITALS: BP 131/86
[2019-06-10] MEDS: HALOPERIDOL 10 MG TABLET PO SCH (20:07)
[2019-06-11] MEDS: FERROUS SULFATE 325 MG EC TABLET PO SCH ×2 (06:46→19:57)
[2019-06-11] MEDS: LEVOTHYROXINE SODIUM 100 MCG TABLET PO SCH (06:46)
[2019-06-11 08:24] VITALS: BP 96/69
[2019-06-11] MEDS: CHLORHEXIDINE GLUCONATE 4% 118 ML TOPICAL LIQUID TP SCH (10:39)
[2019-06-11] MEDS: GENTAMICIN SULFATE 0.3% OPHTHALMIC SOLUTION 5 ML OD SCH ×4 (10:39→21:01)
[2019-06-11] MEDS: VALPROIC ACID 250 MG CAPSULE PO SCH ×2 (10:40→21:01)
[2019-06-11] MEDS: ASPIRIN 81 MG EC TABLET PO SCH (10:40)
[2019-06-11] MEDS: FLUoxetine HCL 20 MG CAPSULE PO SCH (10:40)
[2019-06-11] MEDS: QUEtiapine FUMARATE 200 MG TABLET PO SCH ×2 (10:40→21:01)
[2019-06-11] MEDS: TOPIRAMATE 100 MG TABLET PO SCH ×3 (10:41→16:05)
[2019-06-11] MEDS: OXYBUTYNIN CHLORIDE 5 MG ER TABLET PO SCH (10:41)
[2019-06-11] MEDS: LORATADINE 10 MG TABLET PO SCH (10:41)
[2019-06-11] MEDS: MULTIVITAMINS WITH MINERALS, THERAPEUTIC TABLET PO SCH (10:41)
[2019-06-11] MEDS: LevETIRAcetam 250 MG TABLET PO SCH ×2 (10:41→16:05)
[2019-06-11] MEDS: OMEPRAZOLE 20 MG CAPSULE PO SCH (10:41)
[2019-06-11] MEDS: OMEGA-3/DHA/EPA/FISH OIL 1,000 MG CAPSULE PO SCH (10:41)
[2019-06-11] MEDS: MAGNESIUM OXIDE 400 MG TABLET PO SCH ×3 (10:41→16:05)
[2019-06-11] MEDS: ASCORBIC ACID 500 MG TABLET PO SCH (10:41)
[2019-06-11] MEDS: DOCUSATE SODIUM 100 MG CAPSULE PO SCH (10:41)
[2019-06-11 17:10] VITALS: BP 117/69
[2019-06-11] MEDS: HALOPERIDOL 10 MG TABLET PO SCH (21:01)
[2019-06-12] MEDS: FERROUS SULFATE 325 MG EC TABLET PO SCH ×2 (06:54→16:53)
[2019-06-12] MEDS: LEVOTHYROXINE SODIUM 100 MCG TABLET PO SCH (06:55)
[2019-06-12] MEDS: FLUoxetine HCL 20 MG CAPSULE PO SCH (08:21)
[2019-06-12] MEDS: LORATADINE 10 MG TABLET PO SCH (08:22)
[2019-06-12] MEDS: MAGNESIUM OXIDE 400 MG TABLET PO SCH ×3 (08:22→16:53)
[2019-06-12] MEDS: OMEPRAZOLE 20 MG CAPSULE PO SCH (08:22)
[2019-06-12] MEDS: QUEtiapine FUMARATE 200 MG TABLET PO SCH ×2 (08:22→21:26)
[2019-06-12] MEDS: DOCUSATE SODIUM 100 MG CAPSULE PO SCH (08:22)
[2019-06-12] MEDS: ASPIRIN 81 MG EC TABLET PO SCH (08:22)
[2019-06-12] MEDS: OMEGA-3/DHA/EPA/FISH OIL 1,000 MG CAPSULE PO SCH (08:22)
[2019-06-12] MEDS: MULTIVITAMINS WITH MINERALS, THERAPEUTIC TABLET PO SCH (08:22)
[2019-06-12] MEDS: ASCORBIC ACID 500 MG TABLET PO SCH (08:23)
[2019-06-12] MEDS: OXYBUTYNIN CHLORIDE 5 MG ER TABLET PO SCH (08:23)
[2019-06-12] MEDS: VALPROIC ACID 250 MG CAPSULE PO SCH ×2 (08:23→21:26)
[2019-06-12] MEDS: TOPIRAMATE 100 MG TABLET PO SCH ×3 (08:23→16:53)
[2019-06-12] MEDS: LevETIRAcetam 250 MG TABLET PO SCH ×2 (08:23→16:53)
[2019-06-12] MEDS: HALOPERIDOL 5 MG TABLET PO PRN (08:25)
[2019-06-12] MEDS: CHLORHEXIDINE GLUCONATE 4% 118 ML TOPICAL LIQUID TP SCH (09:00)
[2019-06-12] MEDS: GENTAMICIN SULFATE 0.3% OPHTHALMIC SOLUTION 5 ML OD SCH ×4 (09:00→21:00)
[2019-06-12] MEDS: HALOPERIDOL 10 MG TABLET PO SCH (21:26)
[2019-06-13] MEDS: LEVOTHYROXINE SODIUM 100 MCG TABLET PO SCH (06:38)
[2019-06-13] MEDS: FERROUS SULFATE 325 MG EC TABLET PO SCH ×2 (06:38→16:39)
[2019-06-13 08:00] VITALS: BP 123/92
[2019-06-13] MEDS: ASPIRIN 81 MG EC TABLET PO SCH (08:23)
[2019-06-13] MEDS: DOCUSATE SODIUM 100 MG CAPSULE PO SCH (08:23)
[2019-06-13] MEDS: OMEGA-3/DHA/EPA/FISH OIL 1,000 MG CAPSULE PO SCH (08:23)
[2019-06-13] MEDS: MAGNESIUM OXIDE 400 MG TABLET PO SCH ×3 (08:23→16:39)
[2019-06-13] MEDS: MULTIVITAMINS WITH MINERALS, THERAPEUTIC TABLET PO SCH (08:23)
[2019-06-13] MEDS: OMEPRAZOLE 20 MG CAPSULE PO SCH (08:24)
[2019-06-13] MEDS: FLUoxetine HCL 20 MG CAPSULE PO SCH (08:24)
[2019-06-13] MEDS: LORATADINE 10 MG TABLET PO SCH (08:24)
[2019-06-13] MEDS: OXYBUTYNIN CHLORIDE 5 MG ER TABLET PO SCH (08:26)
[2019-06-13] MEDS: LevETIRAcetam 250 MG TABLET PO SCH ×2 (08:26→16:39)
[2019-06-13] MEDS: VALPROIC ACID 250 MG CAPSULE PO SCH ×2 (08:26→20:16)
[2019-06-13] MEDS: TOPIRAMATE 100 MG TABLET PO SCH ×3 (08:27→16:39)
[2019-06-13] MEDS: QUEtiapine FUMARATE 200 MG TABLET PO SCH ×2 (08:27→20:16)
[2019-06-13] MEDS: ASCORBIC ACID 500 MG TABLET PO SCH (08:27)
[2019-06-13] MEDS: CHLORHEXIDINE GLUCONATE 4% 118 ML TOPICAL LIQUID TP SCH (08:28)
[2019-06-13] MEDS: GENTAMICIN SULFATE 0.3% OPHTHALMIC SOLUTION 5 ML OD SCH ×4 (09:00→20:16)
[2019-06-13] MEDS: HALOPERIDOL 10 MG TABLET PO SCH (20:16)
[2019-06-14] MEDS: LEVOTHYROXINE SODIUM 100 MCG TABLET PO SCH (06:42)
[2019-06-14] MEDS: FERROUS SULFATE 325 MG EC TABLET PO SCH ×2 (06:43→17:21)
[2019-06-14] MEDS: LORATADINE 10 MG TABLET PO SCH (08:18)
[2019-06-14] MEDS: QUEtiapine FUMARATE 200 MG TABLET PO SCH ×2 (08:18→21:39)
[2019-06-14] MEDS: DOCUSATE SODIUM 100 MG CAPSULE PO SCH (08:18)
[2019-06-14] MEDS: OMEGA-3/DHA/EPA/FISH OIL 1,000 MG CAPSULE PO SCH (08:18)
[2019-06-14] MEDS: ASPIRIN 81 MG EC TABLET PO SCH (08:18)
[2019-06-14] MEDS: OMEPRAZOLE 20 MG CAPSULE PO SCH (08:18)
[2019-06-14] MEDS: FLUoxetine HCL 20 MG CAPSULE PO SCH (08:18)
[2019-06-14] MEDS: MAGNESIUM OXIDE 400 MG TABLET PO SCH ×3 (08:18→17:21)
[2019-06-14] MEDS: ASCORBIC ACID 500 MG TABLET PO SCH (08:19)
[2019-06-14] MEDS: TOPIRAMATE 100 MG TABLET PO SCH ×3 (08:19→17:22)
[2019-06-14] MEDS: CHLORHEXIDINE GLUCONATE 4% 118 ML TOPICAL LIQUID TP SCH (08:19)
[2019-06-14] MEDS: OXYBUTYNIN CHLORIDE 5 MG ER TABLET PO SCH (08:20)
[2019-06-14] MEDS: GENTAMICIN SULFATE 0.3% OPHTHALMIC SOLUTION 5 ML OD SCH ×4 (08:20→21:39)
[2019-06-14] MEDS: VALPROIC ACID 250 MG CAPSULE PO SCH ×2 (08:22→21:39)
[2019-06-14] MEDS: MULTIVITAMINS WITH MINERALS, THERAPEUTIC TABLET PO SCH (08:23)
[2019-06-14] MEDS: LevETIRAcetam 250 MG TABLET PO SCH ×2 (08:23→17:21)
[2019-06-14 11:10] VITALS: BP 132/88
[2019-06-14] MEDS: HALOPERIDOL 10 MG TABLET PO SCH (21:39)
[2019-06-15] MEDS: LEVOTHYROXINE SODIUM 100 MCG TABLET PO SCH (06:55)
[2019-06-15] MEDS: FERROUS SULFATE 325 MG EC TABLET PO SCH ×2 (06:56→17:30)
[2019-06-15] MEDS: CHLORHEXIDINE GLUCONATE 4% 118 ML TOPICAL LIQUID TP SCH (09:00)
[2019-06-15] MEDS: MAGNESIUM OXIDE 400 MG TABLET PO SCH ×3 (09:00→17:30)
[2019-06-15] MEDS: OMEPRAZOLE 20 MG CAPSULE PO SCH (09:00)
[2019-06-15] MEDS: VALPROIC ACID 250 MG CAPSULE PO SCH ×2 (09:00→21:05)
[2019-06-15] MEDS: ASPIRIN 81 MG EC TABLET PO SCH (09:00)
[2019-06-15] MEDS: FLUoxetine HCL 20 MG CAPSULE PO SCH (09:00)
[2019-06-15] MEDS: LORATADINE 10 MG TABLET PO SCH (09:00)
[2019-06-15] MEDS: MULTIVITAMINS WITH MINERALS, THERAPEUTIC TABLET PO SCH (09:00)
[2019-06-15] MEDS: DOCUSATE SODIUM 100 MG CAPSULE PO SCH (09:00)
[2019-06-15] MEDS: QUEtiapine FUMARATE 200 MG TABLET PO SCH ×2 (09:00→21:05)
[2019-06-15] MEDS: LevETIRAcetam 250 MG TABLET PO SCH ×2 (09:00→17:30)
[2019-06-15] MEDS: OXYBUTYNIN CHLORIDE 5 MG ER TABLET PO SCH (09:00)
[2019-06-15] MEDS: ASCORBIC ACID 500 MG TABLET PO SCH (09:00)
[2019-06-15] MEDS: GENTAMICIN SULFATE 0.3% OPHTHALMIC SOLUTION 5 ML OD SCH ×4 (09:00→21:05)
[2019-06-15] MEDS: TOPIRAMATE 100 MG TABLET PO SCH ×3 (09:00→17:30)
[2019-06-15] MEDS: OMEGA-3/DHA/EPA/FISH OIL 1,000 MG CAPSULE PO SCH (09:00)
[2019-06-15 10:11] VITALS: BP 129/82
[2019-06-15 16:23] VITALS: BP 119/77
[2019-06-15] MEDS: HALOPERIDOL 10 MG TABLET PO SCH (21:05)
[2019-06-16] MEDS: FERROUS SULFATE 325 MG EC TABLET PO SCH ×2 (06:38→17:39)
[2019-06-16] MEDS: LEVOTHYROXINE SODIUM 100 MCG TABLET PO SCH (06:38)
[2019-06-16] MEDS: ASCORBIC ACID 500 MG TABLET PO SCH (09:51)
[2019-06-16] MEDS: GENTAMICIN SULFATE 0.3% OPHTHALMIC SOLUTION 5 ML OD SCH ×4 (09:51→20:53)
[2019-06-16] MEDS: QUEtiapine FUMARATE 200 MG TABLET PO SCH ×2 (09:51→20:52)
[2019-06-16] MEDS: ASPIRIN 81 MG EC TABLET PO SCH (09:51)
[2019-06-16] MEDS: FLUoxetine HCL 20 MG CAPSULE PO SCH (09:51)
[2019-06-16] MEDS: MULTIVITAMINS WITH MINERALS, THERAPEUTIC TABLET PO SCH (09:51)
[2019-06-16] MEDS: MAGNESIUM OXIDE 400 MG TABLET PO SCH ×3 (09:52→17:39)
[2019-06-16] MEDS: TOPIRAMATE 100 MG TABLET PO SCH ×3 (09:52→17:40)
[2019-06-16] MEDS: VALPROIC ACID 250 MG CAPSULE PO SCH ×2 (09:52→20:52)
[2019-06-16] MEDS: OMEGA-3/DHA/EPA/FISH OIL 1,000 MG CAPSULE PO SCH (09:52)
[2019-06-16] MEDS: LORATADINE 10 MG TABLET PO SCH (09:52)
[2019-06-16] MEDS: LevETIRAcetam 250 MG TABLET PO SCH ×2 (09:52→17:40)
[2019-06-16] MEDS: OXYBUTYNIN CHLORIDE 5 MG ER TABLET PO SCH (09:52)
[2019-06-16] MEDS: DOCUSATE SODIUM 100 MG CAPSULE PO SCH (09:52)
[2019-06-16] MEDS: OMEPRAZOLE 20 MG CAPSULE PO SCH (09:52)
[2019-06-16] MEDS: HALOPERIDOL 5 MG TABLET PO PRN ×2 (09:58→17:42)
[2019-06-16] MEDS: CHLORHEXIDINE GLUCONATE 4% 118 ML TOPICAL LIQUID TP SCH (09:59)
[2019-06-16 16:14] VITALS: BP 121/70
[2019-06-16] MEDS: HALOPERIDOL 10 MG TABLET PO SCH (20:52)
[2019-06-17] MEDS: LEVOTHYROXINE SODIUM 100 MCG TABLET PO SCH (06:50)
[2019-06-17] MEDS: FERROUS SULFATE 325 MG EC TABLET PO SCH ×2 (06:51→16:47)
[2019-06-17] MEDS: LORATADINE 10 MG TABLET PO SCH (08:27)
[2019-06-17] MEDS: FLUoxetine HCL 20 MG CAPSULE PO SCH (08:27)
[2019-06-17] MEDS: MAGNESIUM OXIDE 400 MG TABLET PO SCH ×3 (08:28→16:47)
[2019-06-17] MEDS: DOCUSATE SODIUM 100 MG CAPSULE PO SCH (08:28)
[2019-06-17] MEDS: ASPIRIN 81 MG EC TABLET PO SCH (08:28)
[2019-06-17] MEDS: MULTIVITAMINS WITH MINERALS, THERAPEUTIC TABLET PO SCH (08:28)
[2019-06-17] MEDS: QUEtiapine FUMARATE 200 MG TABLET PO SCH ×2 (08:28→20:46)
[2019-06-17] MEDS: OMEGA-3/DHA/EPA/FISH OIL 1,000 MG CAPSULE PO SCH (08:28)
[2019-06-17] MEDS: VALPROIC ACID 250 MG CAPSULE PO SCH ×2 (08:29→20:46)
[2019-06-17] MEDS: LevETIRAcetam 250 MG TABLET PO SCH ×2 (08:30→16:47)
[2019-06-17] MEDS: OXYBUTYNIN CHLORIDE 5 MG ER TABLET PO SCH (08:30)
[2019-06-17] MEDS: GENTAMICIN SULFATE 0.3% OPHTHALMIC SOLUTION 5 ML OD SCH ×4 (08:30→20:46)
[2019-06-17] MEDS: OMEPRAZOLE 20 MG CAPSULE PO SCH (08:31)
[2019-06-17] MEDS: CHLORHEXIDINE GLUCONATE 4% 118 ML TOPICAL LIQUID TP SCH (08:31)
[2019-06-17] MEDS: TOPIRAMATE 100 MG TABLET PO SCH ×3 (08:31→16:47)
[2019-06-17] MEDS: ASCORBIC ACID 500 MG TABLET PO SCH (08:31)
[2019-06-17 16:14] VITALS: BP 82/47
[2019-06-17] MEDS: HALOPERIDOL 10 MG TABLET PO SCH (20:46)
[2019-06-18] MEDS: LEVOTHYROXINE SODIUM 100 MCG TABLET PO SCH (06:30)
[2019-06-18] MEDS: FERROUS SULFATE 325 MG EC TABLET PO SCH ×2 (06:30→16:32)
[2019-06-18] MEDS: TOPIRAMATE 100 MG TABLET PO SCH ×3 (07:58→16:30)
[2019-06-18] MEDS: MULTIVITAMINS WITH MINERALS, THERAPEUTIC TABLET PO SCH (07:58)
[2019-06-18] MEDS: LevETIRAcetam 250 MG TABLET PO SCH ×2 (07:59→16:30)
[2019-06-18] MEDS: DOCUSATE SODIUM 100 MG CAPSULE PO SCH (07:59)
[2019-06-18] MEDS: QUEtiapine FUMARATE 200 MG TABLET PO SCH ×2 (08:00→20:50)
[2019-06-18] MEDS: MAGNESIUM OXIDE 400 MG TABLET PO SCH ×3 (08:00→16:30)
[2019-06-18] MEDS: FLUoxetine HCL 20 MG CAPSULE PO SCH (08:00)
[2019-06-18] MEDS: OMEPRAZOLE 20 MG CAPSULE PO SCH (08:00)
[2019-06-18] MEDS: LORATADINE 10 MG TABLET PO SCH (08:01)
[2019-06-18] MEDS: OMEGA-3/DHA/EPA/FISH OIL 1,000 MG CAPSULE PO SCH (08:01)
[2019-06-18] MEDS: ASPIRIN 81 MG EC TABLET PO SCH (08:01)
[2019-06-18] MEDS: OXYBUTYNIN CHLORIDE 5 MG ER TABLET PO SCH (08:01)
[2019-06-18] MEDS: VALPROIC ACID 250 MG CAPSULE PO SCH ×2 (08:02→20:50)
[2019-06-18] MEDS: CHLORHEXIDINE GLUCONATE 4% 118 ML TOPICAL LIQUID TP SCH (08:02)
[2019-06-18] MEDS: ASCORBIC ACID 500 MG TABLET PO SCH (08:02)
[2019-06-18] MEDS: GENTAMICIN SULFATE 0.3% OPHTHALMIC SOLUTION 5 ML OD SCH ×4 (10:23→20:50)
[2019-06-18] MEDS: HALOPERIDOL 10 MG TABLET PO SCH (20:50)
[2019-06-19] MEDS: FERROUS SULFATE 325 MG EC TABLET PO SCH ×2 (06:37→16:38)
[2019-06-19] MEDS: LEVOTHYROXINE SODIUM 100 MCG TABLET PO SCH (06:37)
[2019-06-19] MEDS: MULTIVITAMINS WITH MINERALS, THERAPEUTIC TABLET PO SCH (08:29)
[2019-06-19] MEDS: MAGNESIUM OXIDE 400 MG TABLET PO SCH ×3 (08:29→16:38)
[2019-06-19] MEDS: DOCUSATE SODIUM 100 MG CAPSULE PO SCH (08:29)
[2019-06-19] MEDS: LORATADINE 10 MG TABLET PO SCH (08:29)
[2019-06-19] MEDS: OMEGA-3/DHA/EPA/FISH OIL 1,000 MG CAPSULE PO SCH (08:29)
[2019-06-19] MEDS: QUEtiapine FUMARATE 200 MG TABLET PO SCH ×2 (08:29→20:11)
[2019-06-19] MEDS: FLUoxetine HCL 20 MG CAPSULE PO SCH (08:29)
[2019-06-19] MEDS: OMEPRAZOLE 20 MG CAPSULE PO SCH (08:29)
[2019-06-19] MEDS: OXYBUTYNIN CHLORIDE 5 MG ER TABLET PO SCH (08:30)
[2019-06-19] MEDS: VALPROIC ACID 250 MG CAPSULE PO SCH ×2 (08:30→20:11)
[2019-06-19] MEDS: ASPIRIN 81 MG EC TABLET PO SCH (08:30)
[2019-06-19] MEDS: CHLORHEXIDINE GLUCONATE 4% 118 ML TOPICAL LIQUID TP SCH (08:30)
[2019-06-19] MEDS: ASCORBIC ACID 500 MG TABLET PO SCH (08:31)
[2019-06-19] MEDS: TOPIRAMATE 100 MG TABLET PO SCH ×3 (08:31→16:38)
[2019-06-19] MEDS: GENTAMICIN SULFATE 0.3% OPHTHALMIC SOLUTION 5 ML OD SCH ×4 (08:31→20:10)
[2019-06-19] MEDS: LevETIRAcetam 250 MG TABLET PO SCH ×2 (09:24→16:38)
[2019-06-19 16:03] VITALS: BP 106/74
[2019-06-19] MEDS: HALOPERIDOL 10 MG TABLET PO SCH (20:11)
[2019-06-20] MEDS: LEVOTHYROXINE SODIUM 100 MCG TABLET PO SCH (06:52)
[2019-06-20] MEDS: FERROUS SULFATE 325 MG EC TABLET PO SCH ×2 (06:52→17:26)
[2019-06-20] MEDS: CHLORHEXIDINE GLUCONATE 4% 118 ML TOPICAL LIQUID TP SCH (08:46)
[2019-06-20] MEDS: QUEtiapine FUMARATE 200 MG TABLET PO SCH ×2 (08:46→21:31)
[2019-06-20] MEDS: VALPROIC ACID 250 MG CAPSULE PO SCH ×2 (08:46→21:31)
[2019-06-20] MEDS: MULTIVITAMINS WITH MINERALS, THERAPEUTIC TABLET PO SCH (08:47)
[2019-06-20] MEDS: MAGNESIUM OXIDE 400 MG TABLET PO SCH ×3 (08:47→17:26)
[2019-06-20] MEDS: OMEPRAZOLE 20 MG CAPSULE PO SCH (08:47)
[2019-06-20] MEDS: ASPIRIN 81 MG EC TABLET PO SCH (08:47)
[2019-06-20] MEDS: LevETIRAcetam 250 MG TABLET PO SCH ×2 (08:47→17:34)
[2019-06-20] MEDS: LORATADINE 10 MG TABLET PO SCH (08:48)
[2019-06-20] MEDS: FLUoxetine HCL 20 MG CAPSULE PO SCH (08:48)
[2019-06-20] MEDS: OXYBUTYNIN CHLORIDE 5 MG ER TABLET PO SCH (08:48)
[2019-06-20] MEDS: GENTAMICIN SULFATE 0.3% OPHTHALMIC SOLUTION 5 ML OD SCH ×4 (08:49→21:33)
[2019-06-20] MEDS: ASCORBIC ACID 500 MG TABLET PO SCH (08:49)
[2019-06-20] MEDS: DOCUSATE SODIUM 100 MG CAPSULE PO SCH (08:50)
[2019-06-20] MEDS: TOPIRAMATE 100 MG TABLET PO SCH ×3 (08:50→17:26)
[2019-06-20] MEDS: OMEGA-3/DHA/EPA/FISH OIL 1,000 MG CAPSULE PO SCH (08:50)
[2019-06-20 16:05] VITALS: BP 114/78
[2019-06-20] MEDS: HALOPERIDOL 10 MG TABLET PO SCH (21:33)
[2019-06-21] MEDS: LEVOTHYROXINE SODIUM 100 MCG TABLET PO SCH (06:38)
[2019-06-21] MEDS: FERROUS SULFATE 325 MG EC TABLET PO SCH ×2 (06:38→17:30)
[2019-06-21] MEDS: DOCUSATE SODIUM 100 MG CAPSULE PO SCH (09:37)
[2019-06-21] MEDS: OMEPRAZOLE 20 MG CAPSULE PO SCH (09:37)
[2019-06-21] MEDS: OMEGA-3/DHA/EPA/FISH OIL 1,000 MG CAPSULE PO SCH (09:37)
[2019-06-21] MEDS: MULTIVITAMINS WITH MINERALS, THERAPEUTIC TABLET PO SCH (09:38)
[2019-06-21] MEDS: ASCORBIC ACID 500 MG TABLET PO SCH (09:38)
[2019-06-21] MEDS: MAGNESIUM OXIDE 400 MG TABLET PO SCH ×3 (09:38→17:00)
[2019-06-21] MEDS: QUEtiapine FUMARATE 200 MG TABLET PO SCH ×2 (09:38→21:26)
[2019-06-21] MEDS: LORATADINE 10 MG TABLET PO SCH (09:39)
[2019-06-21] MEDS: FLUoxetine HCL 20 MG CAPSULE PO SCH (09:40)
[2019-06-21] MEDS: CHLORHEXIDINE GLUCONATE 4% 118 ML TOPICAL LIQUID TP SCH (09:40)
[2019-06-21] MEDS: ASPIRIN 81 MG EC TABLET PO SCH (09:40)
[2019-06-21] MEDS: LevETIRAcetam 250 MG TABLET PO SCH ×2 (09:40→17:00)
[2019-06-21] MEDS: TOPIRAMATE 100 MG TABLET PO SCH ×3 (09:40→17:00)
[2019-06-21] MEDS: OXYBUTYNIN CHLORIDE 5 MG ER TABLET PO SCH (09:42)
[2019-06-21] MEDS: VALPROIC ACID 250 MG CAPSULE PO SCH ×2 (09:42→21:25)
[2019-06-21] MEDS: GENTAMICIN SULFATE 0.3% OPHTHALMIC SOLUTION 5 ML OD SCH ×4 (09:45→21:25)
[2019-06-21 12:47] VITALS: BP 125/60
[2019-06-21] MEDS: HALOPERIDOL 10 MG TABLET PO SCH (21:25)
[2019-06-22] MEDS: LEVOTHYROXINE SODIUM 100 MCG TABLET PO SCH (06:36)
[2019-06-22] MEDS: FERROUS SULFATE 325 MG EC TABLET PO SCH ×2 (06:37→17:22)
[2019-06-22] MEDS: GENTAMICIN SULFATE 0.3% OPHTHALMIC SOLUTION 5 ML OD SCH ×4 (07:53→20:13)
[2019-06-22] MEDS: MAGNESIUM OXIDE 400 MG TABLET PO SCH ×3 (07:54→17:22)
[2019-06-22] MEDS: QUEtiapine FUMARATE 200 MG TABLET PO SCH ×2 (07:54→20:13)
[2019-06-22] MEDS: OMEGA-3/DHA/EPA/FISH OIL 1,000 MG CAPSULE PO SCH (07:54)
[2019-06-22] MEDS: OXYBUTYNIN CHLORIDE 5 MG ER TABLET PO SCH (07:54)
[2019-06-22] MEDS: DOCUSATE SODIUM 100 MG CAPSULE PO SCH (07:54)
[2019-06-22] MEDS: ASPIRIN 81 MG EC TABLET PO SCH (07:54)
[2019-06-22] MEDS: FLUoxetine HCL 20 MG CAPSULE PO SCH (07:54)
[2019-06-22] MEDS: LevETIRAcetam 250 MG TABLET PO SCH ×2 (07:54→17:21)
[2019-06-22] MEDS: MULTIVITAMINS WITH MINERALS, THERAPEUTIC TABLET PO SCH (07:54)
[2019-06-22] MEDS: OMEPRAZOLE 20 MG CAPSULE PO SCH (07:54)
[2019-06-22] MEDS: LORATADINE 10 MG TABLET PO SCH (07:54)
[2019-06-22] MEDS: TOPIRAMATE 100 MG TABLET PO SCH ×3 (07:55→17:21)
[2019-06-22] MEDS: VALPROIC ACID 250 MG CAPSULE PO SCH ×2 (07:55→20:12)
[2019-06-22] MEDS: ASCORBIC ACID 500 MG TABLET PO SCH (07:56)
[2019-06-22] MEDS: CHLORHEXIDINE GLUCONATE 4% 118 ML TOPICAL LIQUID TP SCH (13:20)
[2019-06-22 16:04] VITALS: BP 111/61
[2019-06-22] MEDS: HALOPERIDOL 10 MG TABLET PO SCH (20:13)
[2019-06-23] MEDS: FERROUS SULFATE 325 MG EC TABLET PO SCH ×2 (06:49→17:24)
[2019-06-23] MEDS: LEVOTHYROXINE SODIUM 100 MCG TABLET PO SCH (06:49)
[2019-06-23] MEDS: VALPROIC ACID 250 MG CAPSULE PO SCH ×2 (07:55→20:10)
[2019-06-23] MEDS: ASCORBIC ACID 500 MG TABLET PO SCH (07:55)
[2019-06-23] MEDS: LevETIRAcetam 250 MG TABLET PO SCH ×2 (07:55→17:25)
[2019-06-23] MEDS: OXYBUTYNIN CHLORIDE 5 MG ER TABLET PO SCH (07:55)
[2019-06-23] MEDS: TOPIRAMATE 100 MG TABLET PO SCH ×3 (07:55→17:25)
[2019-06-23] MEDS: DOCUSATE SODIUM 100 MG CAPSULE PO SCH (07:56)
[2019-06-23] MEDS: MULTIVITAMINS WITH MINERALS, THERAPEUTIC TABLET PO SCH (07:56)
[2019-06-23] MEDS: OMEPRAZOLE 20 MG CAPSULE PO SCH (07:56)
[2019-06-23] MEDS: ASPIRIN 81 MG EC TABLET PO SCH (07:56)
[2019-06-23] MEDS: MAGNESIUM OXIDE 400 MG TABLET PO SCH ×3 (07:56→17:24)
[2019-06-23] MEDS: OMEGA-3/DHA/EPA/FISH OIL 1,000 MG CAPSULE PO SCH (07:56)
[2019-06-23] MEDS: FLUoxetine HCL 20 MG CAPSULE PO SCH (07:56)
[2019-06-23] MEDS: CHLORHEXIDINE GLUCONATE 4% 118 ML TOPICAL LIQUID TP SCH (07:57)
[2019-06-23] MEDS: QUEtiapine FUMARATE 200 MG TABLET PO SCH ×2 (07:58→20:11)
[2019-06-23] MEDS: GENTAMICIN SULFATE 0.3% OPHTHALMIC SOLUTION 5 ML OD SCH (08:01)
[2019-06-23] MEDS: LORATADINE 10 MG TABLET PO SCH (08:01)
[2019-06-23 08:58] VITALS: BP 126/60
[2019-06-23] MEDS: HALOPERIDOL 10 MG TABLET PO SCH (20:11)
[2019-06-24] MEDS: LEVOTHYROXINE SODIUM 100 MCG TABLET PO SCH (06:23)
[2019-06-24] MEDS: FERROUS SULFATE 325 MG EC TABLET PO SCH ×2 (06:39→16:48)
[2019-06-24 08:00] VITALS: BP 124/74
[2019-06-24] MEDS: FLUoxetine HCL 20 MG CAPSULE PO SCH (08:37)
[2019-06-24] MEDS: OMEPRAZOLE 20 MG CAPSULE PO SCH (08:37)
[2019-06-24] MEDS: QUEtiapine FUMARATE 200 MG TABLET PO SCH ×2 (08:37→20:00)
[2019-06-24] MEDS: VALPROIC ACID 250 MG CAPSULE PO SCH ×2 (08:37→20:00)
[2019-06-24] MEDS: ASPIRIN 81 MG EC TABLET PO SCH (08:38)
[2019-06-24] MEDS: TOPIRAMATE 100 MG TABLET PO SCH ×3 (08:38→16:48)
[2019-06-24] MEDS: LevETIRAcetam 250 MG TABLET PO SCH ×2 (08:38→16:48)
[2019-06-24] MEDS: ASCORBIC ACID 500 MG TABLET PO SCH (08:38)
[2019-06-24] MEDS: MAGNESIUM OXIDE 400 MG TABLET PO SCH ×3 (08:38→16:49)
[2019-06-24] MEDS: LORATADINE 10 MG TABLET PO SCH (08:38)
[2019-06-24] MEDS: MULTIVITAMINS WITH MINERALS, THERAPEUTIC TABLET PO SCH (08:38)
[2019-06-24] MEDS: OXYBUTYNIN CHLORIDE 5 MG ER TABLET PO SCH (08:39)
[2019-06-24] MEDS: OMEGA-3/DHA/EPA/FISH OIL 1,000 MG CAPSULE PO SCH (08:40)
[2019-06-24] MEDS: DOCUSATE SODIUM 100 MG CAPSULE PO SCH (08:40)
[2019-06-24] MEDS: CHLORHEXIDINE GLUCONATE 4% 118 ML TOPICAL LIQUID TP SCH (08:43)
[2019-06-24 16:24] VITALS: BP 117/79
[2019-06-24] MEDS: HALOPERIDOL 10 MG TABLET PO SCH (20:00)
[2019-06-25] MEDS: FERROUS SULFATE 325 MG EC TABLET PO SCH ×2 (06:33→16:16)
[2019-06-25] MEDS: LEVOTHYROXINE SODIUM 100 MCG TABLET PO SCH (06:33)
[2019-06-25] MEDS: OMEGA-3/DHA/EPA/FISH OIL 1,000 MG CAPSULE PO SCH (09:31)
[2019-06-25] MEDS: FLUoxetine HCL 20 MG CAPSULE PO SCH (09:32)
[2019-06-25] MEDS: TOPIRAMATE 100 MG TABLET PO SCH ×3 (09:32→16:16)
[2019-06-25] MEDS: ASPIRIN 81 MG EC TABLET PO SCH (09:32)
[2019-06-25] MEDS: OMEPRAZOLE 20 MG CAPSULE PO SCH (09:32)
[2019-06-25] MEDS: OXYBUTYNIN CHLORIDE 5 MG ER TABLET PO SCH (09:32)
[2019-06-25] MEDS: MAGNESIUM OXIDE 400 MG TABLET PO SCH ×3 (09:32→16:16)
[2019-06-25] MEDS: DOCUSATE SODIUM 100 MG CAPSULE PO SCH (09:32)
[2019-06-25] MEDS: MULTIVITAMINS WITH MINERALS, THERAPEUTIC TABLET PO SCH (09:32)
[2019-06-25] MEDS: QUEtiapine FUMARATE 200 MG TABLET PO SCH ×2 (09:32→20:08)
[2019-06-25] MEDS: LORATADINE 10 MG TABLET PO SCH (09:32)
[2019-06-25] MEDS: LevETIRAcetam 250 MG TABLET PO SCH ×2 (09:33→16:16)
[2019-06-25] MEDS: VALPROIC ACID 250 MG CAPSULE PO SCH ×2 (09:33→20:08)
[2019-06-25] MEDS: CHLORHEXIDINE GLUCONATE 4% 118 ML TOPICAL LIQUID TP SCH (09:33)
[2019-06-25] MEDS: ASCORBIC ACID 500 MG TABLET PO SCH (09:33)
[2019-06-25 10:27] VITALS: BP 149/81
[2019-06-25 16:03] VITALS: BP 134/78
[2019-06-25] MEDS: HALOPERIDOL 10 MG TABLET PO SCH (20:08)
[2019-06-26] MEDS: FERROUS SULFATE 325 MG EC TABLET PO SCH ×2 (06:57→17:43)
[2019-06-26] MEDS: LEVOTHYROXINE SODIUM 100 MCG TABLET PO SCH (06:57)
[2019-06-26] MEDS: OMEGA-3/DHA/EPA/FISH OIL 1,000 MG CAPSULE PO SCH (10:14)
[2019-06-26] MEDS: TOPIRAMATE 100 MG TABLET PO SCH ×3 (10:14→17:43)
[2019-06-26] MEDS: OXYBUTYNIN CHLORIDE 5 MG ER TABLET PO SCH (10:14)
[2019-06-26] MEDS: ASPIRIN 81 MG EC TABLET PO SCH (10:14)
[2019-06-26] MEDS: MULTIVITAMINS WITH MINERALS, THERAPEUTIC TABLET PO SCH (10:14)
[2019-06-26] MEDS: LORATADINE 10 MG TABLET PO SCH (10:14)
[2019-06-26] MEDS: LevETIRAcetam 250 MG TABLET PO SCH ×2 (10:14→17:43)
[2019-06-26] MEDS: MAGNESIUM OXIDE 400 MG TABLET PO SCH ×3 (10:14→17:43)
[2019-06-26] MEDS: DOCUSATE SODIUM 100 MG CAPSULE PO SCH (10:14)
[2019-06-26] MEDS: OMEPRAZOLE 20 MG CAPSULE PO SCH (10:14)
[2019-06-26] MEDS: ASCORBIC ACID 500 MG TABLET PO SCH (10:14)
[2019-06-26] MEDS: CHLORHEXIDINE GLUCONATE 4% 118 ML TOPICAL LIQUID TP SCH (10:14)
[2019-06-26] MEDS: VALPROIC ACID 250 MG CAPSULE PO SCH ×2 (10:14→21:25)
[2019-06-26] MEDS: QUEtiapine FUMARATE 200 MG TABLET PO SCH ×2 (10:14→21:25)
[2019-06-26] MEDS: FLUoxetine HCL 20 MG CAPSULE PO SCH (10:14)
[2019-06-26 13:36] VITALS: BP 92/56
[2019-06-26 16:38] VITALS: BP 101/57
[2019-06-26] MEDS: HALOPERIDOL 10 MG TABLET PO SCH (21:25)
[2019-06-27] MEDS: LEVOTHYROXINE SODIUM 100 MCG TABLET PO SCH (07:00)
[2019-06-27] MEDS: FERROUS SULFATE 325 MG EC TABLET PO SCH ×2 (07:02→17:23)
[2019-06-27] MEDS: ASPIRIN 81 MG EC TABLET PO SCH (08:10)
[2019-06-27] MEDS: LevETIRAcetam 250 MG TABLET PO SCH ×2 (08:10→17:23)
[2019-06-27] MEDS: MAGNESIUM OXIDE 400 MG TABLET PO SCH ×3 (08:10→17:23)
[2019-06-27] MEDS: LORATADINE 10 MG TABLET PO SCH (08:10)
[2019-06-27] MEDS: OMEPRAZOLE 20 MG CAPSULE PO SCH (08:10)
[2019-06-27] MEDS: DOCUSATE SODIUM 100 MG CAPSULE PO SCH (08:11)
[2019-06-27] MEDS: MULTIVITAMINS WITH MINERALS, THERAPEUTIC TABLET PO SCH (08:11)
[2019-06-27] MEDS: QUEtiapine FUMARATE 200 MG TABLET PO SCH ×2 (08:11→20:22)
[2019-06-27] MEDS: TOPIRAMATE 100 MG TABLET PO SCH ×3 (08:11→17:23)
[2019-06-27] MEDS: OMEGA-3/DHA/EPA/FISH OIL 1,000 MG CAPSULE PO SCH (08:11)
[2019-06-27] MEDS: ASCORBIC ACID 500 MG TABLET PO SCH (08:11)
[2019-06-27] MEDS: FLUoxetine HCL 20 MG CAPSULE PO SCH (08:12)
[2019-06-27] MEDS: OXYBUTYNIN CHLORIDE 5 MG ER TABLET PO SCH (08:12)
[2019-06-27] MEDS: VALPROIC ACID 250 MG CAPSULE PO SCH ×2 (08:14→20:22)
[2019-06-27 08:30] VITALS: BP 102/51
[2019-06-27] MEDS: CHLORHEXIDINE GLUCONATE 4% 118 ML TOPICAL LIQUID TP SCH (09:31)
[2019-06-27 16:00] VITALS: BP 113/55
[2019-06-27] MEDS: HALOPERIDOL 10 MG TABLET PO SCH (20:22)
[2019-06-28] MEDS: LEVOTHYROXINE SODIUM 100 MCG TABLET PO SCH (07:01)
[2019-06-28] MEDS: FERROUS SULFATE 325 MG EC TABLET PO SCH ×2 (07:01→18:02)
[2019-06-28] MEDS: LORATADINE 10 MG TABLET PO SCH (08:06)
[2019-06-28] MEDS: OMEGA-3/DHA/EPA/FISH OIL 1,000 MG CAPSULE PO SCH (08:06)
[2019-06-28] MEDS: QUEtiapine FUMARATE 200 MG TABLET PO SCH ×3 (08:06→20:52)
[2019-06-28] MEDS: MAGNESIUM OXIDE 400 MG TABLET PO SCH ×3 (08:06→18:02)
[2019-06-28] MEDS: FLUoxetine HCL 20 MG CAPSULE PO SCH (08:06)
[2019-06-28] MEDS: TOPIRAMATE 100 MG TABLET PO SCH ×3 (08:07→18:02)
[2019-06-28] MEDS: MULTIVITAMINS WITH MINERALS, THERAPEUTIC TABLET PO SCH (08:07)
[2019-06-28] MEDS: OMEPRAZOLE 20 MG CAPSULE PO SCH (08:07)
[2019-06-28] MEDS: DOCUSATE SODIUM 100 MG CAPSULE PO SCH (08:07)
[2019-06-28] MEDS: LevETIRAcetam 250 MG TABLET PO SCH ×2 (08:08→18:02)
[2019-06-28] MEDS: VALPROIC ACID 250 MG CAPSULE PO SCH ×3 (08:08→20:50)
[2019-06-28] MEDS: OXYBUTYNIN CHLORIDE 5 MG ER TABLET PO SCH (08:08)
[2019-06-28] MEDS: ASPIRIN 81 MG EC TABLET PO SCH (08:08)
[2019-06-28] MEDS: ASCORBIC ACID 500 MG TABLET PO SCH (08:11)
[2019-06-28 09:36] VITALS: BP 127/58
[2019-06-28] MEDS: CHLORHEXIDINE GLUCONATE 4% 118 ML TOPICAL LIQUID TP SCH (13:02)
[2019-06-28] MEDS: HALOPERIDOL 10 MG TABLET PO SCH ×2 (19:28→20:52)
[2019-06-29] MEDS: FERROUS SULFATE 325 MG EC TABLET PO SCH ×2 (06:34→17:34)
[2019-06-29] MEDS: LEVOTHYROXINE SODIUM 100 MCG TABLET PO SCH (06:34)
[2019-06-29] MEDS: ASPIRIN 81 MG EC TABLET PO SCH (08:05)
[2019-06-29] MEDS: OMEPRAZOLE 20 MG CAPSULE PO SCH (08:05)
[2019-06-29] MEDS: MAGNESIUM OXIDE 400 MG TABLET PO SCH ×3 (08:06→17:34)
[2019-06-29] MEDS: LORATADINE 10 MG TABLET PO SCH (08:06)
[2019-06-29] MEDS: QUEtiapine FUMARATE 200 MG TABLET PO SCH ×2 (08:06→21:16)
[2019-06-29] MEDS: FLUoxetine HCL 20 MG CAPSULE PO SCH (08:06)
[2019-06-29] MEDS: MULTIVITAMINS WITH MINERALS, THERAPEUTIC TABLET PO SCH (08:06)
[2019-06-29] MEDS: DOCUSATE SODIUM 100 MG CAPSULE PO SCH (08:06)
[2019-06-29] MEDS: OMEGA-3/DHA/EPA/FISH OIL 1,000 MG CAPSULE PO SCH (08:06)
[2019-06-29] MEDS: VALPROIC ACID 250 MG CAPSULE PO SCH ×2 (08:07→21:16)
[2019-06-29] MEDS: OXYBUTYNIN CHLORIDE 5 MG ER TABLET PO SCH (08:07)
[2019-06-29] MEDS: CHLORHEXIDINE GLUCONATE 4% 118 ML TOPICAL LIQUID TP SCH (08:07)
[2019-06-29] MEDS: ASCORBIC ACID 500 MG TABLET PO SCH (08:11)
[2019-06-29] MEDS: TOPIRAMATE 100 MG TABLET PO SCH ×3 (08:11→17:34)
[2019-06-29] MEDS: LevETIRAcetam 250 MG TABLET PO SCH ×2 (08:11→17:34)
[2019-06-29 16:07] VITALS: BP 117/78
[2019-06-29] MEDS: HALOPERIDOL 10 MG TABLET PO SCH (21:16)
[2019-06-30] MEDS: FERROUS SULFATE 325 MG EC TABLET PO SCH ×2 (06:44→17:18)
[2019-06-30] MEDS: LEVOTHYROXINE SODIUM 100 MCG TABLET PO SCH (06:44)
[2019-06-30] MEDS: DOCUSATE SODIUM 100 MG CAPSULE PO SCH (08:26)
[2019-06-30] MEDS: OMEPRAZOLE 20 MG CAPSULE PO SCH (08:26)
[2019-06-30] MEDS: MULTIVITAMINS WITH MINERALS, THERAPEUTIC TABLET PO SCH (08:26)
[2019-06-30] MEDS: FLUoxetine HCL 20 MG CAPSULE PO SCH (08:27)
[2019-06-30] MEDS: OXYBUTYNIN CHLORIDE 5 MG ER TABLET PO SCH (08:27)
[2019-06-30] MEDS: OMEGA-3/DHA/EPA/FISH OIL 1,000 MG CAPSULE PO SCH (08:27)
[2019-06-30] MEDS: ASPIRIN 81 MG EC TABLET PO SCH (08:27)
[2019-06-30] MEDS: QUEtiapine FUMARATE 200 MG TABLET PO SCH ×2 (08:27→20:57)
[2019-06-30] MEDS: LORATADINE 10 MG TABLET PO SCH (08:27)
[2019-06-30] MEDS: ASCORBIC ACID 500 MG TABLET PO SCH (08:27)
[2019-06-30] MEDS: MAGNESIUM OXIDE 400 MG TABLET PO SCH ×3 (08:27→17:18)
[2019-06-30] MEDS: VALPROIC ACID 250 MG CAPSULE PO SCH ×2 (08:28→20:57)
[2019-06-30] MEDS: TOPIRAMATE 100 MG TABLET PO SCH ×3 (08:28→17:19)
[2019-06-30] MEDS: LevETIRAcetam 250 MG TABLET PO SCH ×2 (08:28→17:18)
[2019-06-30] MEDS: CHLORHEXIDINE GLUCONATE 4% 118 ML TOPICAL LIQUID TP SCH (08:29)
[2019-06-30 09:46] VITALS: BP 114/65
[2019-06-30 16:44] VITALS: BP 111/71
[2019-06-30] MEDS: HALOPERIDOL 10 MG TABLET PO SCH (20:57)
[2019-07-01] MEDS: FERROUS SULFATE 325 MG EC TABLET PO SCH ×2 (06:53→16:28)
[2019-07-01] MEDS: LEVOTHYROXINE SODIUM 100 MCG TABLET PO SCH (06:53)
[2019-07-01] MEDS: DOCUSATE SODIUM 100 MG CAPSULE PO SCH (08:04)
[2019-07-01] MEDS: MAGNESIUM OXIDE 400 MG TABLET PO SCH ×3 (08:04→16:28)
[2019-07-01] MEDS: FLUoxetine HCL 20 MG CAPSULE PO SCH (08:04)
[2019-07-01] MEDS: ASPIRIN 81 MG EC TABLET PO SCH (08:04)
[2019-07-01] MEDS: LORATADINE 10 MG TABLET PO SCH (08:04)
[2019-07-01] MEDS: MULTIVITAMINS WITH MINERALS, THERAPEUTIC TABLET PO SCH (08:04)
[2019-07-01] MEDS: OMEGA-3/DHA/EPA/FISH OIL 1,000 MG CAPSULE PO SCH (08:04)
[2019-07-01] MEDS: QUEtiapine FUMARATE 200 MG TABLET PO SCH ×2 (08:04→20:05)
[2019-07-01] MEDS: TOPIRAMATE 100 MG TABLET PO SCH ×3 (08:05→16:28)
[2019-07-01] MEDS: OMEPRAZOLE 20 MG CAPSULE PO SCH (08:05)
[2019-07-01] MEDS: LevETIRAcetam 250 MG TABLET PO SCH ×2 (08:05→16:28)
[2019-07-01] MEDS: ASCORBIC ACID 500 MG TABLET PO SCH (08:06)
[2019-07-01] MEDS: VALPROIC ACID 250 MG CAPSULE PO SCH ×2 (08:06→20:05)
[2019-07-01] MEDS: OXYBUTYNIN CHLORIDE 5 MG ER TABLET PO SCH (08:06)
[2019-07-01] MEDS: CHLORHEXIDINE GLUCONATE 4% 118 ML TOPICAL LIQUID TP SCH (08:07)
[2019-07-01 11:41] VITALS: BP 117/78
[2019-07-01] MEDS: HALOPERIDOL 10 MG TABLET PO SCH (20:05)
[2019-07-02] MEDS: FERROUS SULFATE 325 MG EC TABLET PO SCH ×2 (06:30→16:30)
[2019-07-02] MEDS: LEVOTHYROXINE SODIUM 100 MCG TABLET PO SCH (06:30)
[2019-07-02] MEDS: LORATADINE 10 MG TABLET PO SCH (07:38)
[2019-07-02] MEDS: OMEPRAZOLE 20 MG CAPSULE PO SCH (07:38)
[2019-07-02] MEDS: FLUoxetine HCL 20 MG CAPSULE PO SCH (07:38)
[2019-07-02] MEDS: MAGNESIUM OXIDE 400 MG TABLET PO SCH ×3 (07:39→16:22)
[2019-07-02] MEDS: DOCUSATE SODIUM 100 MG CAPSULE PO SCH (07:39)
[2019-07-02] MEDS: OMEGA-3/DHA/EPA/FISH OIL 1,000 MG CAPSULE PO SCH (07:39)
[2019-07-02] MEDS: ASPIRIN 81 MG EC TABLET PO SCH (07:39)
[2019-07-02] MEDS: VALPROIC ACID 250 MG CAPSULE PO SCH ×2 (07:39→20:24)
[2019-07-02] MEDS: LevETIRAcetam 250 MG TABLET PO SCH ×2 (07:39→16:22)
[2019-07-02] MEDS: MULTIVITAMINS WITH MINERALS, THERAPEUTIC TABLET PO SCH (07:39)
[2019-07-02] MEDS: OXYBUTYNIN CHLORIDE 5 MG ER TABLET PO SCH (07:39)
[2019-07-02] MEDS: QUEtiapine FUMARATE 200 MG TABLET PO SCH ×2 (07:39→20:25)
[2019-07-02] MEDS: TOPIRAMATE 100 MG TABLET PO SCH ×3 (07:40→16:22)
[2019-07-02] MEDS: ASCORBIC ACID 500 MG TABLET PO SCH (07:40)
[2019-07-02] MEDS: CHLORHEXIDINE GLUCONATE 4% 118 ML TOPICAL LIQUID TP SCH (09:00)
[2019-07-02 13:56] VITALS: BP 105/81
[2019-07-02 16:12] VITALS: BP 123/74
[2019-07-02] MEDS: HALOPERIDOL 10 MG TABLET PO SCH (20:24)
[2019-07-03] MEDS: LEVOTHYROXINE SODIUM 100 MCG TABLET PO SCH (06:58)
[2019-07-03] MEDS: FERROUS SULFATE 325 MG EC TABLET PO SCH ×2 (06:58→17:20)
[2019-07-03] MEDS: QUEtiapine FUMARATE 200 MG TABLET PO SCH ×2 (08:05→21:19)
[2019-07-03] MEDS: OMEPRAZOLE 20 MG CAPSULE PO SCH (08:05)
[2019-07-03] MEDS: ASCORBIC ACID 500 MG TABLET PO SCH (08:05)
[2019-07-03] MEDS: OMEGA-3/DHA/EPA/FISH OIL 1,000 MG CAPSULE PO SCH (08:06)
[2019-07-03] MEDS: DOCUSATE SODIUM 100 MG CAPSULE PO SCH (08:06)
[2019-07-03] MEDS: LORATADINE 10 MG TABLET PO SCH (08:06)
[2019-07-03] MEDS: MAGNESIUM OXIDE 400 MG TABLET PO SCH ×3 (08:06→17:20)
[2019-07-03] MEDS: ASPIRIN 81 MG EC TABLET PO SCH (08:06)
[2019-07-03] MEDS: VALPROIC ACID 250 MG CAPSULE PO SCH ×2 (08:06→21:18)
[2019-07-03] MEDS: LevETIRAcetam 250 MG TABLET PO SCH ×2 (08:06→17:20)
[2019-07-03] MEDS: FLUoxetine HCL 20 MG CAPSULE PO SCH (08:07)
[2019-07-03] MEDS: MULTIVITAMINS WITH MINERALS, THERAPEUTIC TABLET PO SCH (08:07)
[2019-07-03] MEDS: OXYBUTYNIN CHLORIDE 5 MG ER TABLET PO SCH (08:08)
[2019-07-03] MEDS: TOPIRAMATE 100 MG TABLET PO SCH ×3 (08:08→17:20)
[2019-07-03] MEDS: CHLORHEXIDINE GLUCONATE 4% 118 ML TOPICAL LIQUID TP SCH (08:08)
[2019-07-03 09:18] VITALS: BP 128/77
[2019-07-03 17:05] VITALS: BP 108/57
[2019-07-03] MEDS: HALOPERIDOL 10 MG TABLET PO SCH (21:19)
[2019-07-04] MEDS: LEVOTHYROXINE SODIUM 100 MCG TABLET PO SCH (06:55)
[2019-07-04] MEDS: FERROUS SULFATE 325 MG EC TABLET PO SCH ×2 (06:55→16:56)
[2019-07-04] MEDS: OMEPRAZOLE 20 MG CAPSULE PO SCH (08:00)
[2019-07-04] MEDS: DOCUSATE SODIUM 100 MG CAPSULE PO SCH (08:00)
[2019-07-04] MEDS: VALPROIC ACID 250 MG CAPSULE PO SCH ×2 (08:01→20:42)
[2019-07-04] MEDS: MULTIVITAMINS WITH MINERALS, THERAPEUTIC TABLET PO SCH (08:01)
[2019-07-04] MEDS: ASPIRIN 81 MG EC TABLET PO SCH (08:01)
[2019-07-04] MEDS: MAGNESIUM OXIDE 400 MG TABLET PO SCH ×3 (08:01→17:04)
[2019-07-04] MEDS: FLUoxetine HCL 20 MG CAPSULE PO SCH (08:01)
[2019-07-04] MEDS: QUEtiapine FUMARATE 200 MG TABLET PO SCH ×2 (08:01→20:41)
[2019-07-04] MEDS: LORATADINE 10 MG TABLET PO SCH (08:01)
[2019-07-04] MEDS: LevETIRAcetam 250 MG TABLET PO SCH ×2 (08:02→16:55)
[2019-07-04] MEDS: ASCORBIC ACID 500 MG TABLET PO SCH (08:02)
[2019-07-04] MEDS: TOPIRAMATE 100 MG TABLET PO SCH ×3 (08:02→16:55)
[2019-07-04] MEDS: OXYBUTYNIN CHLORIDE 5 MG ER TABLET PO SCH (08:02)
[2019-07-04] MEDS: OMEGA-3/DHA/EPA/FISH OIL 1,000 MG CAPSULE PO SCH (08:02)
[2019-07-04] MEDS: CHLORHEXIDINE GLUCONATE 4% 118 ML TOPICAL LIQUID TP SCH (08:03)
[2019-07-04 17:08] VITALS: BP 105/69
[2019-07-04 19:53] VITALS: BP 105/69
[2019-07-04] MEDS: HALOPERIDOL 10 MG TABLET PO SCH (20:41)
[2019-07-05] MEDS: LEVOTHYROXINE SODIUM 100 MCG TABLET PO SCH (07:00)
[2019-07-05] MEDS: FERROUS SULFATE 325 MG EC TABLET PO SCH ×2 (07:01→17:18)
[2019-07-05] MEDS: ASCORBIC ACID 500 MG TABLET PO SCH (08:28)
[2019-07-05] MEDS: VALPROIC ACID 250 MG CAPSULE PO SCH ×2 (08:28→20:07)
[2019-07-05] MEDS: TOPIRAMATE 100 MG TABLET PO SCH ×3 (08:28→17:19)
[2019-07-05] MEDS: LevETIRAcetam 250 MG TABLET PO SCH ×2 (08:28→17:18)
[2019-07-05] MEDS: CHLORHEXIDINE GLUCONATE 4% 118 ML TOPICAL LIQUID TP SCH (08:28)
[2019-07-05] MEDS: OXYBUTYNIN CHLORIDE 5 MG ER TABLET PO SCH (08:29)
[2019-07-05] MEDS: DOCUSATE SODIUM 100 MG CAPSULE PO SCH (08:32)
[2019-07-05] MEDS: OMEPRAZOLE 20 MG CAPSULE PO SCH (08:32)
[2019-07-05] MEDS: LORATADINE 10 MG TABLET PO SCH (08:32)
[2019-07-05] MEDS: OMEGA-3/DHA/EPA/FISH OIL 1,000 MG CAPSULE PO SCH (08:33)
[2019-07-05] MEDS: QUEtiapine FUMARATE 200 MG TABLET PO SCH ×2 (08:33→20:08)
[2019-07-05] MEDS: FLUoxetine HCL 20 MG CAPSULE PO SCH (08:33)
[2019-07-05] MEDS: ASPIRIN 81 MG EC TABLET PO SCH (08:33)
[2019-07-05] MEDS: MAGNESIUM OXIDE 400 MG TABLET PO SCH ×3 (08:33→17:18)
[2019-07-05] MEDS: MULTIVITAMINS WITH MINERALS, THERAPEUTIC TABLET PO SCH (08:33)
[2019-07-05] MEDS: HALOPERIDOL 10 MG TABLET PO SCH (20:07)
[2019-07-06] MEDS: LEVOTHYROXINE SODIUM 100 MCG TABLET PO SCH (06:58)
[2019-07-06] MEDS: FERROUS SULFATE 325 MG EC TABLET PO SCH ×2 (06:58→17:26)
[2019-07-06] MEDS: OMEGA-3/DHA/EPA/FISH OIL 1,000 MG CAPSULE PO SCH (07:48)
[2019-07-06] MEDS: ASPIRIN 81 MG EC TABLET PO SCH (07:48)
[2019-07-06] MEDS: QUEtiapine FUMARATE 200 MG TABLET PO SCH ×2 (07:48→20:14)
[2019-07-06] MEDS: MULTIVITAMINS WITH MINERALS, THERAPEUTIC TABLET PO SCH (07:48)
[2019-07-06] MEDS: FLUoxetine HCL 20 MG CAPSULE PO SCH (07:48)
[2019-07-06] MEDS: MAGNESIUM OXIDE 400 MG TABLET PO SCH ×3 (07:48→17:26)
[2019-07-06] MEDS: ASCORBIC ACID 500 MG TABLET PO SCH (07:49)
[2019-07-06] MEDS: LevETIRAcetam 250 MG TABLET PO SCH ×2 (07:49→17:26)
[2019-07-06] MEDS: DOCUSATE SODIUM 100 MG CAPSULE PO SCH (07:49)
[2019-07-06] MEDS: TOPIRAMATE 100 MG TABLET PO SCH ×3 (07:49→17:26)
[2019-07-06] MEDS: LORATADINE 10 MG TABLET PO SCH (07:49)
[2019-07-06] MEDS: OMEPRAZOLE 20 MG CAPSULE PO SCH (07:49)
[2019-07-06] MEDS: OXYBUTYNIN CHLORIDE 5 MG ER TABLET PO SCH (07:50)
[2019-07-06] MEDS: VALPROIC ACID 250 MG CAPSULE PO SCH ×2 (07:50→20:14)
[2019-07-06] MEDS: CHLORHEXIDINE GLUCONATE 4% 118 ML TOPICAL LIQUID TP SCH (09:00)
[2019-07-06 16:15] VITALS: BP 107/71
[2019-07-06] MEDS: HALOPERIDOL 10 MG TABLET PO SCH (20:14)
[2019-07-07] MEDS: LEVOTHYROXINE SODIUM 100 MCG TABLET PO SCH (06:46)
[2019-07-07] MEDS: FERROUS SULFATE 325 MG EC TABLET PO SCH ×2 (06:53→17:08)
[2019-07-07] MEDS: MULTIVITAMINS WITH MINERALS, THERAPEUTIC TABLET PO SCH (08:17)
[2019-07-07] MEDS: LORATADINE 10 MG TABLET PO SCH (08:17)
[2019-07-07] MEDS: OMEPRAZOLE 20 MG CAPSULE PO SCH (08:17)
[2019-07-07] MEDS: MAGNESIUM OXIDE 400 MG TABLET PO SCH ×3 (08:17→17:08)
[2019-07-07] MEDS: QUEtiapine FUMARATE 200 MG TABLET PO SCH ×2 (08:17→20:20)
[2019-07-07] MEDS: TOPIRAMATE 100 MG TABLET PO SCH ×3 (08:21→17:08)
[2019-07-07] MEDS: ASCORBIC ACID 500 MG TABLET PO SCH (08:21)
[2019-07-07] MEDS: OMEGA-3/DHA/EPA/FISH OIL 1,000 MG CAPSULE PO SCH (08:21)
[2019-07-07] MEDS: ASPIRIN 81 MG EC TABLET PO SCH (08:21)
[2019-07-07] MEDS: DOCUSATE SODIUM 100 MG CAPSULE PO SCH (08:21)
[2019-07-07] MEDS: FLUoxetine HCL 20 MG CAPSULE PO SCH (08:21)
[2019-07-07] MEDS: LevETIRAcetam 250 MG TABLET PO SCH ×2 (08:22→17:08)
[2019-07-07] MEDS: VALPROIC ACID 250 MG CAPSULE PO SCH ×2 (08:22→20:20)
[2019-07-07] MEDS: OXYBUTYNIN CHLORIDE 5 MG ER TABLET PO SCH (08:22)
[2019-07-07] MEDS: CHLORHEXIDINE GLUCONATE 4% 118 ML TOPICAL LIQUID TP SCH (08:23)
[2019-07-07 16:35] VITALS: BP 107/82
[2019-07-07] MEDS: HALOPERIDOL 10 MG TABLET PO SCH (20:20)
[2019-07-08] MEDS: FERROUS SULFATE 325 MG EC TABLET PO SCH ×2 (07:04→16:34)
[2019-07-08] MEDS: LEVOTHYROXINE SODIUM 100 MCG TABLET PO SCH (07:04)
[2019-07-08] MEDS: VALPROIC ACID 250 MG CAPSULE PO SCH ×2 (09:45→21:36)
[2019-07-08] MEDS: DOCUSATE SODIUM 100 MG CAPSULE PO SCH (09:46)
[2019-07-08] MEDS: OMEGA-3/DHA/EPA/FISH OIL 1,000 MG CAPSULE PO SCH (09:46)
[2019-07-08] MEDS: LevETIRAcetam 250 MG TABLET PO SCH ×2 (09:46→16:34)
[2019-07-08] MEDS: ASCORBIC ACID 500 MG TABLET PO SCH (09:46)
[2019-07-08] MEDS: TOPIRAMATE 100 MG TABLET PO SCH ×3 (09:46→16:34)
[2019-07-08] MEDS: FLUoxetine HCL 20 MG CAPSULE PO SCH (09:46)
[2019-07-08] MEDS: MULTIVITAMINS WITH MINERALS, THERAPEUTIC TABLET PO SCH (09:46)
[2019-07-08] MEDS: QUEtiapine FUMARATE 200 MG TABLET PO SCH ×2 (09:46→21:37)
[2019-07-08] MEDS: ASPIRIN 81 MG EC TABLET PO SCH (09:47)
[2019-07-08] MEDS: OMEPRAZOLE 20 MG CAPSULE PO SCH (09:47)
[2019-07-08] MEDS: MAGNESIUM OXIDE 400 MG TABLET PO SCH ×3 (09:47→16:34)
[2019-07-08] MEDS: OXYBUTYNIN CHLORIDE 5 MG ER TABLET PO SCH (09:47)
[2019-07-08] MEDS: LORATADINE 10 MG TABLET PO SCH (09:47)
[2019-07-08] MEDS: CHLORHEXIDINE GLUCONATE 4% 118 ML TOPICAL LIQUID TP SCH (09:48)
[2019-07-08 11:23] VITALS: BP 135/89
[2019-07-08 16:01] VITALS: BP 109/81
[2019-07-08] MEDS: HALOPERIDOL 10 MG TABLET PO SCH (21:36)
[2019-07-09] MEDS: LEVOTHYROXINE SODIUM 100 MCG TABLET PO SCH (06:25)
[2019-07-09] MEDS: FERROUS SULFATE 325 MG EC TABLET PO SCH ×2 (06:26→16:41)
[2019-07-09] MEDS: OXYBUTYNIN CHLORIDE 5 MG ER TABLET PO SCH (08:36)
[2019-07-09] MEDS: VALPROIC ACID 250 MG CAPSULE PO SCH ×2 (08:36→20:17)
[2019-07-09] MEDS: ASCORBIC ACID 500 MG TABLET PO SCH (08:37)
[2019-07-09] MEDS: TOPIRAMATE 100 MG TABLET PO SCH ×3 (08:37→16:41)
[2019-07-09] MEDS: LevETIRAcetam 250 MG TABLET PO SCH ×2 (08:37→16:41)
[2019-07-09] MEDS: MULTIVITAMINS WITH MINERALS, THERAPEUTIC TABLET PO SCH (08:41)
[2019-07-09] MEDS: FLUoxetine HCL 20 MG CAPSULE PO SCH (08:41)
[2019-07-09] MEDS: OMEGA-3/DHA/EPA/FISH OIL 1,000 MG CAPSULE PO SCH (08:41)
[2019-07-09] MEDS: OMEPRAZOLE 20 MG CAPSULE PO SCH (08:41)
[2019-07-09] MEDS: LORATADINE 10 MG TABLET PO SCH (08:41)
[2019-07-09] MEDS: DOCUSATE SODIUM 100 MG CAPSULE PO SCH (08:41)
[2019-07-09] MEDS: MAGNESIUM OXIDE 400 MG TABLET PO SCH ×3 (08:41→16:41)
[2019-07-09] MEDS: ASPIRIN 81 MG EC TABLET PO SCH (08:42)
[2019-07-09] MEDS: QUEtiapine FUMARATE 200 MG TABLET PO SCH ×2 (08:42→20:16)
[2019-07-09] MEDS: CHLORHEXIDINE GLUCONATE 4% 118 ML TOPICAL LIQUID TP SCH (08:43)
[2019-07-09 16:04] VITALS: BP 109/77
[2019-07-09] MEDS: HALOPERIDOL 10 MG TABLET PO SCH (20:17)
[2019-07-10] MEDS: LEVOTHYROXINE SODIUM 100 MCG TABLET PO SCH (06:45)
[2019-07-10] MEDS: FERROUS SULFATE 325 MG EC TABLET PO SCH ×2 (06:45→16:38)
[2019-07-10] MEDS: OMEPRAZOLE 20 MG CAPSULE PO SCH (08:25)
[2019-07-10] MEDS: QUEtiapine FUMARATE 200 MG TABLET PO SCH ×2 (08:26→20:19)
[2019-07-10] MEDS: MULTIVITAMINS WITH MINERALS, THERAPEUTIC TABLET PO SCH (08:26)
[2019-07-10] MEDS: MAGNESIUM OXIDE 400 MG TABLET PO SCH ×3 (08:26→16:37)
[2019-07-10] MEDS: DOCUSATE SODIUM 100 MG CAPSULE PO SCH (08:26)
[2019-07-10] MEDS: LORATADINE 10 MG TABLET PO SCH (08:26)
[2019-07-10] MEDS: ASPIRIN 81 MG EC TABLET PO SCH (08:26)
[2019-07-10] MEDS: OMEGA-3/DHA/EPA/FISH OIL 1,000 MG CAPSULE PO SCH (08:26)
[2019-07-10] MEDS: FLUoxetine HCL 20 MG CAPSULE PO SCH (08:26)
[2019-07-10] MEDS: ASCORBIC ACID 500 MG TABLET PO SCH (08:27)
[2019-07-10] MEDS: LevETIRAcetam 250 MG TABLET PO SCH ×2 (08:27→16:38)
[2019-07-10] MEDS: VALPROIC ACID 250 MG CAPSULE PO SCH ×2 (08:27→20:20)
[2019-07-10] MEDS: TOPIRAMATE 100 MG TABLET PO SCH ×3 (08:27→16:37)
[2019-07-10] MEDS: OXYBUTYNIN CHLORIDE 5 MG ER TABLET PO SCH (08:28)
[2019-07-10] MEDS: CHLORHEXIDINE GLUCONATE 4% 118 ML TOPICAL LIQUID TP SCH (09:00)
[2019-07-10 16:52] VITALS: BP 132/58
[2019-07-10] MEDS: HALOPERIDOL 10 MG TABLET PO SCH (20:19)
[2019-07-11] MEDS: LEVOTHYROXINE SODIUM 100 MCG TABLET PO SCH (06:59)
[2019-07-11] MEDS: FERROUS SULFATE 325 MG EC TABLET PO SCH ×2 (06:59→16:32)
[2019-07-11] MEDS: MAGNESIUM OXIDE 400 MG TABLET PO SCH ×3 (07:59→16:32)
[2019-07-11] MEDS: ASPIRIN 81 MG EC TABLET PO SCH (07:59)
[2019-07-11] MEDS: LORATADINE 10 MG TABLET PO SCH (07:59)
[2019-07-11] MEDS: MULTIVITAMINS WITH MINERALS, THERAPEUTIC TABLET PO SCH (07:59)
[2019-07-11] MEDS: OMEGA-3/DHA/EPA/FISH OIL 1,000 MG CAPSULE PO SCH (08:00)
[2019-07-11] MEDS: OXYBUTYNIN CHLORIDE 5 MG ER TABLET PO SCH (08:00)
[2019-07-11] MEDS: VALPROIC ACID 250 MG CAPSULE PO SCH ×2 (08:00→21:03)
[2019-07-11] MEDS: TOPIRAMATE 100 MG TABLET PO SCH ×3 (08:00→16:33)
[2019-07-11] MEDS: LevETIRAcetam 250 MG TABLET PO SCH ×2 (08:00→16:33)
[2019-07-11] MEDS: DOCUSATE SODIUM 100 MG CAPSULE PO SCH (08:00)
[2019-07-11] MEDS: OMEPRAZOLE 20 MG CAPSULE PO SCH (08:00)
[2019-07-11] MEDS: FLUoxetine HCL 20 MG CAPSULE PO SCH (08:00)
[2019-07-11] MEDS: QUEtiapine FUMARATE 200 MG TABLET PO SCH ×2 (08:00→21:03)
[2019-07-11] MEDS: ASCORBIC ACID 500 MG TABLET PO SCH (08:01)
[2019-07-11] MEDS: CHLORHEXIDINE GLUCONATE 4% 118 ML TOPICAL LIQUID TP SCH (09:00)
[2019-07-11 09:47] VITALS: BP 124/49
[2019-07-11 19:08] VITALS: BP 105/69
[2019-07-11] MEDS: HALOPERIDOL 10 MG TABLET PO SCH (21:03)
[2019-07-12] MEDS: FERROUS SULFATE 325 MG EC TABLET PO SCH ×2 (06:51→17:46)
[2019-07-12] MEDS: LEVOTHYROXINE SODIUM 100 MCG TABLET PO SCH (06:51)
[2019-07-12] MEDS: OMEPRAZOLE 20 MG CAPSULE PO SCH (08:57)
[2019-07-12] MEDS: OMEGA-3/DHA/EPA/FISH OIL 1,000 MG CAPSULE PO SCH (08:57)
[2019-07-12] MEDS: LORATADINE 10 MG TABLET PO SCH (08:58)
[2019-07-12] MEDS: ASCORBIC ACID 500 MG TABLET PO SCH (08:58)
[2019-07-12] MEDS: LevETIRAcetam 250 MG TABLET PO SCH ×2 (08:58→17:46)
[2019-07-12] MEDS: QUEtiapine FUMARATE 200 MG TABLET PO SCH ×2 (08:58→21:53)
[2019-07-12] MEDS: MAGNESIUM OXIDE 400 MG TABLET PO SCH ×3 (08:58→17:45)
[2019-07-12] MEDS: TOPIRAMATE 100 MG TABLET PO SCH ×3 (08:58→17:45)
[2019-07-12] MEDS: OXYBUTYNIN CHLORIDE 5 MG ER TABLET PO SCH (08:58)
[2019-07-12] MEDS: MULTIVITAMINS WITH MINERALS, THERAPEUTIC TABLET PO SCH (08:58)
[2019-07-12] MEDS: VALPROIC ACID 250 MG CAPSULE PO SCH ×2 (08:58→21:53)
[2019-07-12] MEDS: FLUoxetine HCL 20 MG CAPSULE PO SCH (08:58)
[2019-07-12] MEDS: DOCUSATE SODIUM 100 MG CAPSULE PO SCH (08:58)
[2019-07-12] MEDS: CHLORHEXIDINE GLUCONATE 4% 118 ML TOPICAL LIQUID TP SCH (08:59)
[2019-07-12] MEDS: ASPIRIN 81 MG EC TABLET PO SCH (08:59)
[2019-07-12 12:34] VITALS: BP 126/95
[2019-07-12 16:42] VITALS: BP 90/52
[2019-07-12] MEDS: HALOPERIDOL 10 MG TABLET PO SCH (21:53)
[2019-07-13] MEDS: LEVOTHYROXINE SODIUM 100 MCG TABLET PO SCH (06:39)
[2019-07-13] MEDS: FERROUS SULFATE 325 MG EC TABLET PO SCH ×2 (06:39→16:44)
[2019-07-13] MEDS: OMEGA-3/DHA/EPA/FISH OIL 1,000 MG CAPSULE PO SCH (08:21)
[2019-07-13] MEDS: OMEPRAZOLE 20 MG CAPSULE PO SCH (08:21)
[2019-07-13] MEDS: DOCUSATE SODIUM 100 MG CAPSULE PO SCH (08:21)
[2019-07-13] MEDS: VALPROIC ACID 250 MG CAPSULE PO SCH ×2 (08:21→20:15)
[2019-07-13] MEDS: QUEtiapine FUMARATE 200 MG TABLET PO SCH ×2 (08:23→20:15)
[2019-07-13] MEDS: ASCORBIC ACID 500 MG TABLET PO SCH (08:23)
[2019-07-13] MEDS: LORATADINE 10 MG TABLET PO SCH (08:23)
[2019-07-13] MEDS: OXYBUTYNIN CHLORIDE 5 MG ER TABLET PO SCH (08:23)
[2019-07-13] MEDS: ASPIRIN 81 MG EC TABLET PO SCH (08:23)
[2019-07-13] MEDS: MAGNESIUM OXIDE 400 MG TABLET PO SCH ×3 (08:23→16:43)
[2019-07-13] MEDS: FLUoxetine HCL 20 MG CAPSULE PO SCH (08:23)
[2019-07-13] MEDS: TOPIRAMATE 100 MG TABLET PO SCH ×3 (08:24→16:44)
[2019-07-13] MEDS: CHLORHEXIDINE GLUCONATE 4% 118 ML TOPICAL LIQUID TP SCH (08:24)
[2019-07-13] MEDS: MULTIVITAMINS WITH MINERALS, THERAPEUTIC TABLET PO SCH (08:24)
[2019-07-13] MEDS: LevETIRAcetam 250 MG TABLET PO SCH ×2 (08:53→16:44)
[2019-07-13 17:01] VITALS: BP 105/69
[2019-07-13] MEDS: HALOPERIDOL 10 MG TABLET PO SCH (20:15)
[2019-07-13] MEDS: GuaiFENesin [SUGAR-FREE] 200 MG/10 ML SOLUTION UDCUP PO PRN (20:15)
[2019-07-14] MEDS: LEVOTHYROXINE SODIUM 100 MCG TABLET PO SCH (07:00)
[2019-07-14] MEDS: FERROUS SULFATE 325 MG EC TABLET PO SCH ×2 (07:00→16:08)
[2019-07-14] MEDS: CHLORHEXIDINE GLUCONATE 4% 118 ML TOPICAL LIQUID TP SCH (09:00)
[2019-07-14 09:04] VITALS: BP 100/59
[2019-07-14] MEDS: MAGNESIUM OXIDE 400 MG TABLET PO SCH ×3 (09:50→16:08)
[2019-07-14] MEDS: OMEPRAZOLE 20 MG CAPSULE PO SCH (09:50)
[2019-07-14] MEDS: LevETIRAcetam 250 MG TABLET PO SCH ×2 (09:51→16:08)
[2019-07-14] MEDS: ASPIRIN 81 MG EC TABLET PO SCH (09:51)
[2019-07-14] MEDS: FLUoxetine HCL 20 MG CAPSULE PO SCH (09:51)
[2019-07-14] MEDS: OXYBUTYNIN CHLORIDE 5 MG ER TABLET PO SCH (09:51)
[2019-07-14] MEDS: VALPROIC ACID 250 MG CAPSULE PO SCH ×2 (09:51→19:32)
[2019-07-14] MEDS: DOCUSATE SODIUM 100 MG CAPSULE PO SCH (09:51)
[2019-07-14] MEDS: TOPIRAMATE 100 MG TABLET PO SCH ×3 (09:52→16:08)
[2019-07-14] MEDS: MULTIVITAMINS WITH MINERALS, THERAPEUTIC TABLET PO SCH (09:52)
[2019-07-14] MEDS: LORATADINE 10 MG TABLET PO SCH (09:52)
[2019-07-14] MEDS: OMEGA-3/DHA/EPA/FISH OIL 1,000 MG CAPSULE PO SCH (09:52)
[2019-07-14] MEDS: QUEtiapine FUMARATE 200 MG TABLET PO SCH ×2 (09:52→19:32)
[2019-07-14] MEDS: ASCORBIC ACID 500 MG TABLET PO SCH (09:52)
[2019-07-14 17:44] VITALS: BP 107/78
[2019-07-14] MEDS: HALOPERIDOL 10 MG TABLET PO SCH (19:32)
[2019-07-15] MEDS: LEVOTHYROXINE SODIUM 100 MCG TABLET PO SCH (06:35)
[2019-07-15] MEDS: FERROUS SULFATE 325 MG EC TABLET PO SCH ×2 (06:35→16:35)
[2019-07-15] MEDS: TOPIRAMATE 100 MG TABLET PO SCH ×3 (08:18→16:34)
[2019-07-15] MEDS: LevETIRAcetam 250 MG TABLET PO SCH ×2 (08:18→16:35)
[2019-07-15] MEDS: MULTIVITAMINS WITH MINERALS, THERAPEUTIC TABLET PO SCH (08:18)
[2019-07-15] MEDS: FLUoxetine HCL 20 MG CAPSULE PO SCH (08:19)
[2019-07-15] MEDS: LORATADINE 10 MG TABLET PO SCH (08:19)
[2019-07-15] MEDS: OMEGA-3/DHA/EPA/FISH OIL 1,000 MG CAPSULE PO SCH (08:19)
[2019-07-15] MEDS: VALPROIC ACID 250 MG CAPSULE PO SCH ×2 (08:20→20:03)
[2019-07-15] MEDS: DOCUSATE SODIUM 100 MG CAPSULE PO SCH (08:22)
[2019-07-15] MEDS: QUEtiapine FUMARATE 200 MG TABLET PO SCH ×2 (08:22→20:04)
[2019-07-15] MEDS: OMEPRAZOLE 20 MG CAPSULE PO SCH (08:22)
[2019-07-15] MEDS: OXYBUTYNIN CHLORIDE 5 MG ER TABLET PO SCH (08:22)
[2019-07-15] MEDS: ASPIRIN 81 MG EC TABLET PO SCH (08:22)
[2019-07-15] MEDS: MAGNESIUM OXIDE 400 MG TABLET PO SCH ×3 (08:22→16:35)
[2019-07-15] MEDS: ASCORBIC ACID 500 MG TABLET PO SCH (08:22)
[2019-07-15] MEDS: CHLORHEXIDINE GLUCONATE 4% 118 ML TOPICAL LIQUID TP SCH (09:00)
[2019-07-15 16:59] VITALS: BP 98/58
[2019-07-15] MEDS: HALOPERIDOL 10 MG TABLET PO SCH (20:03)
[2019-07-16] MEDS: FERROUS SULFATE 325 MG EC TABLET PO SCH ×2 (06:46→16:38)
[2019-07-16] MEDS: LEVOTHYROXINE SODIUM 100 MCG TABLET PO SCH (06:46)
[2019-07-16] MEDS: CHLORHEXIDINE GLUCONATE 4% 118 ML TOPICAL LIQUID TP SCH (09:00)
[2019-07-16] MEDS: OMEGA-3/DHA/EPA/FISH OIL 1,000 MG CAPSULE PO SCH (09:25)
[2019-07-16] MEDS: MAGNESIUM OXIDE 400 MG TABLET PO SCH ×3 (09:25→16:37)
[2019-07-16] MEDS: ASPIRIN 81 MG EC TABLET PO SCH (09:25)
[2019-07-16] MEDS: LORATADINE 10 MG TABLET PO SCH (09:25)
[2019-07-16] MEDS: VALPROIC ACID 250 MG CAPSULE PO SCH ×2 (09:25→20:00)
[2019-07-16] MEDS: QUEtiapine FUMARATE 200 MG TABLET PO SCH ×2 (09:26→20:00)
[2019-07-16] MEDS: OMEPRAZOLE 20 MG CAPSULE PO SCH (09:26)
[2019-07-16] MEDS: LevETIRAcetam 250 MG TABLET PO SCH ×2 (09:26→16:37)
[2019-07-16] MEDS: FLUoxetine HCL 20 MG CAPSULE PO SCH (09:26)
[2019-07-16] MEDS: ASCORBIC ACID 500 MG TABLET PO SCH (09:27)
[2019-07-16] MEDS: DOCUSATE SODIUM 100 MG CAPSULE PO SCH (09:27)
[2019-07-16] MEDS: TOPIRAMATE 100 MG TABLET PO SCH ×3 (09:27→16:37)
[2019-07-16] MEDS: OXYBUTYNIN CHLORIDE 5 MG ER TABLET PO SCH (09:27)
[2019-07-16] MEDS: MULTIVITAMINS WITH MINERALS, THERAPEUTIC TABLET PO SCH (09:32)
[2019-07-16] MEDS: HALOPERIDOL 10 MG TABLET PO SCH (20:00)
[2019-07-17] MEDS: LEVOTHYROXINE SODIUM 100 MCG TABLET PO SCH (06:41)
[2019-07-17] MEDS: FERROUS SULFATE 325 MG EC TABLET PO SCH ×2 (06:42→17:21)
[2019-07-17] MEDS: VALPROIC ACID 250 MG CAPSULE PO SCH ×2 (08:23→20:39)
[2019-07-17] MEDS: FLUoxetine HCL 20 MG CAPSULE PO SCH (08:24)
[2019-07-17] MEDS: TOPIRAMATE 100 MG TABLET PO SCH ×3 (08:26→17:21)
[2019-07-17] MEDS: ASPIRIN 81 MG EC TABLET PO SCH (08:26)
[2019-07-17] MEDS: OXYBUTYNIN CHLORIDE 5 MG ER TABLET PO SCH (08:27)
[2019-07-17] MEDS: DOCUSATE SODIUM 100 MG CAPSULE PO SCH (08:27)
[2019-07-17] MEDS: MAGNESIUM OXIDE 400 MG TABLET PO SCH ×3 (08:27→17:21)
[2019-07-17] MEDS: ASCORBIC ACID 500 MG TABLET PO SCH (08:27)
[2019-07-17] MEDS: OMEGA-3/DHA/EPA/FISH OIL 1,000 MG CAPSULE PO SCH (08:27)
[2019-07-17] MEDS: LevETIRAcetam 250 MG TABLET PO SCH ×2 (08:27→17:20)
[2019-07-17] MEDS: MULTIVITAMINS WITH MINERALS, THERAPEUTIC TABLET PO SCH (08:28)
[2019-07-17] MEDS: LORATADINE 10 MG TABLET PO SCH (08:28)
[2019-07-17] MEDS: OMEPRAZOLE 20 MG CAPSULE PO SCH (08:28)
[2019-07-17] MEDS: QUEtiapine FUMARATE 200 MG TABLET PO SCH ×2 (08:28→20:39)
[2019-07-17 09:19] VITALS: BP 106/64
[2019-07-17 16:07] VITALS: BP 96/70
[2019-07-17] MEDS: HALOPERIDOL 10 MG TABLET PO SCH (20:39)
[2019-07-18] MEDS: LEVOTHYROXINE SODIUM 100 MCG TABLET PO SCH (06:42)
[2019-07-18] MEDS: FERROUS SULFATE 325 MG EC TABLET PO SCH ×2 (06:42→17:16)
[2019-07-18] MEDS: QUEtiapine FUMARATE 200 MG TABLET PO SCH ×2 (08:44→21:28)
[2019-07-18] MEDS: DOCUSATE SODIUM 100 MG CAPSULE PO SCH (08:45)
[2019-07-18] MEDS: OMEPRAZOLE 20 MG CAPSULE PO SCH (08:45)
[2019-07-18] MEDS: MULTIVITAMINS WITH MINERALS, THERAPEUTIC TABLET PO SCH (08:45)
[2019-07-18] MEDS: OMEGA-3/DHA/EPA/FISH OIL 1,000 MG CAPSULE PO SCH (08:45)
[2019-07-18] MEDS: LORATADINE 10 MG TABLET PO SCH (08:45)
[2019-07-18] MEDS: MAGNESIUM OXIDE 400 MG TABLET PO SCH ×3 (08:45→17:16)
[2019-07-18] MEDS: FLUoxetine HCL 20 MG CAPSULE PO SCH (08:45)
[2019-07-18] MEDS: ASPIRIN 81 MG EC TABLET PO SCH (08:45)
[2019-07-18] MEDS: TOPIRAMATE 100 MG TABLET PO SCH ×3 (08:46→17:16)
[2019-07-18] MEDS: OXYBUTYNIN CHLORIDE 5 MG ER TABLET PO SCH (08:46)
[2019-07-18] MEDS: ASCORBIC ACID 500 MG TABLET PO SCH (08:46)
[2019-07-18] MEDS: VALPROIC ACID 250 MG CAPSULE PO SCH ×2 (08:46→21:28)
[2019-07-18] MEDS: LevETIRAcetam 250 MG TABLET PO SCH ×2 (08:47→17:16)
[2019-07-18 16:02] VITALS: BP 90/79
[2019-07-18] MEDS: HALOPERIDOL 10 MG TABLET PO SCH (21:28)
[2019-07-19] MEDS: FERROUS SULFATE 325 MG EC TABLET PO SCH ×2 (06:33→16:48)
[2019-07-19] MEDS: LEVOTHYROXINE SODIUM 100 MCG TABLET PO SCH (06:33)
[2019-07-19] MEDS: ASCORBIC ACID 500 MG TABLET PO SCH (09:00)
[2019-07-19] MEDS: ASPIRIN 81 MG EC TABLET PO SCH (09:00)
[2019-07-19] MEDS: OXYBUTYNIN CHLORIDE 5 MG ER TABLET PO SCH (09:00)
[2019-07-19] MEDS: QUEtiapine FUMARATE 200 MG TABLET PO SCH ×2 (09:00→23:12)
[2019-07-19] MEDS: FLUoxetine HCL 20 MG CAPSULE PO SCH (09:00)
[2019-07-19] MEDS: TOPIRAMATE 100 MG TABLET PO SCH ×3 (09:00→16:49)
[2019-07-19] MEDS: OMEPRAZOLE 20 MG CAPSULE PO SCH (09:00)
[2019-07-19] MEDS: DOCUSATE SODIUM 100 MG CAPSULE PO SCH (09:00)
[2019-07-19] MEDS: MULTIVITAMINS WITH MINERALS, THERAPEUTIC TABLET PO SCH (09:00)
[2019-07-19] MEDS: LORATADINE 10 MG TABLET PO SCH (09:00)
[2019-07-19] MEDS: MAGNESIUM OXIDE 400 MG TABLET PO SCH ×3 (09:00→16:48)
[2019-07-19] MEDS: LevETIRAcetam 250 MG TABLET PO SCH ×2 (09:00→16:49)
[2019-07-19] MEDS: VALPROIC ACID 250 MG CAPSULE PO SCH ×2 (09:00→23:11)
[2019-07-19] MEDS: OMEGA-3/DHA/EPA/FISH OIL 1,000 MG CAPSULE PO SCH (09:00)
[2019-07-19 09:27] LABS: BASOPHILS % (AUTO) 0.3 % (0.0-2.0); EOSINOPHILS % (AUTO) 0.3 % (1.0-6.0); HEMATOCRIT 36.9 % (36-46); HEMOGLOBIN 12.5 g/dL (12.0-16.0); LYMPHOCYTES # (AUTO) 3.1 K/uL (1.0-4.8); LYMPHOCYTES % (AUTO) 39.5 % (22.0-44.0); MEAN CORPUSCULAR HEMOGLOBIN 33.9 pg (26.0-34.0); MEAN CORPUSCULAR HGB CONC 33.9 G/dL (31.0-37.0); MEAN CORPUSCULAR VOLUME 100 fL (80-100); MONOCYTES # (AUTO) 0.8 K/uL (0.1-1.0); MONOCYTES % (AUTO) 9.9 % (2.0-9.0); PLATELET COUNT (AUTO) 155 K/uL (150-450); RED BLOOD CELL COUNT(AUTO) 3.68 MIL/uL (4.00-5.20); RED CELL DISTRIBUTION WIDTH 13.5 % (11.5-14.5)
[2019-07-19 10:15] LABS: ALANINE AMINOTRANSFERASE 80 U/L (12-78); ALBUMIN 2.4 g/dL (3.4-5.0); ALKALINE PHOSPHATASE 72 U/L (46-116); ANION GAP 4 mmol/L (8-16); ASPARTATE AMINOTRANSFERASE 45 U/L (15-37); BILIRUBIN,TOTAL 0.1 mg/dL (0.1-1.0); CALCIUM, TOTAL 9.2 mg/dL (8.8-10.5); CARBON DIOXIDE 30 mmol/L (22-29); CHLORIDE 105 mmol/L (98-107); CHOL/HDL RATIO 3.6 (3.9-5.7); CHOLESTEROL 157 mg/dL (131-200); CREATININE 0.59 mg/dL (0.60-1.30); GLOMERULAR FILTR. RATE CALC > 60 mL/min (>60); GLUCOSE,RANDOM 92 mg/dL (70-110); HDL CHOLESTEROL 44 mg/dL (40-60); LDL CHOL (CALC.) 90 mg/dL (0-130); PHOSPHORUS 4.4 mg/dL (2.5-4.9); POTASSIUM 4.4 mmol/L (3.5-5.1); SODIUM SERUM 139 mmol/L (136-145); THYROID STIMULATING HORMONE 3.56 uIU/mL (0.36-3.74); TOTAL PROTEIN, SERUM 6.5 g/dL (6.4-8.2); TRIGLYCERIDES 115 mg/dL (15-150); UREA NITROGEN, BLOOD 22 mg/dL (7-18)
[2019-07-19 11:41] LABS: HEMOGLOBIN A1C 5.7 % (4.5-6.2)
[2019-07-19 19:53] VITALS: BP 111/79
[2019-07-19] MEDS: HALOPERIDOL 10 MG TABLET PO SCH (23:12)
[2019-07-20] MEDS: LEVOTHYROXINE SODIUM 100 MCG TABLET PO SCH (06:51)
[2019-07-20] MEDS: FERROUS SULFATE 325 MG EC TABLET PO SCH ×2 (06:51→17:30)
[2019-07-20] MEDS: MULTIVITAMINS WITH MINERALS, THERAPEUTIC TABLET PO SCH (09:15)
[2019-07-20] MEDS: MAGNESIUM OXIDE 400 MG TABLET PO SCH ×3 (09:15→17:00)
[2019-07-20] MEDS: QUEtiapine FUMARATE 200 MG TABLET PO SCH ×2 (09:15→20:37)
[2019-07-20] MEDS: LevETIRAcetam 250 MG TABLET PO SCH ×2 (09:15→17:00)
[2019-07-20] MEDS: DOCUSATE SODIUM 100 MG CAPSULE PO SCH (09:16)
[2019-07-20] MEDS: LORATADINE 10 MG TABLET PO SCH (09:16)
[2019-07-20] MEDS: OXYBUTYNIN CHLORIDE 5 MG ER TABLET PO SCH (09:16)
[2019-07-20] MEDS: OMEGA-3/DHA/EPA/FISH OIL 1,000 MG CAPSULE PO SCH (09:16)
[2019-07-20] MEDS: ASCORBIC ACID 500 MG TABLET PO SCH (09:16)
[2019-07-20] MEDS: OMEPRAZOLE 20 MG CAPSULE PO SCH (09:16)
[2019-07-20] MEDS: TOPIRAMATE 100 MG TABLET PO SCH ×3 (09:16→17:00)
[2019-07-20] MEDS: FLUoxetine HCL 20 MG CAPSULE PO SCH (09:16)
[2019-07-20] MEDS: VALPROIC ACID 250 MG CAPSULE PO SCH ×2 (09:16→20:37)
[2019-07-20] MEDS: ASPIRIN 81 MG EC TABLET PO SCH (09:16)
[2019-07-20 13:11] VITALS: BP 100/66
[2019-07-20 16:44] VITALS: BP 97/61
[2019-07-20] MEDS: HALOPERIDOL 10 MG TABLET PO SCH (20:37)
[2019-07-21] MEDS: FERROUS SULFATE 325 MG EC TABLET PO SCH ×2 (06:53→17:41)
[2019-07-21] MEDS: LEVOTHYROXINE SODIUM 100 MCG TABLET PO SCH (06:53)
[2019-07-21] MEDS: OMEGA-3/DHA/EPA/FISH OIL 1,000 MG CAPSULE PO SCH (08:26)
[2019-07-21] MEDS: FLUoxetine HCL 20 MG CAPSULE PO SCH (08:26)
[2019-07-21] MEDS: ASPIRIN 81 MG EC TABLET PO SCH (08:27)
[2019-07-21] MEDS: ASCORBIC ACID 500 MG TABLET PO SCH (08:27)
[2019-07-21] MEDS: VALPROIC ACID 250 MG CAPSULE PO SCH ×2 (08:27→21:35)
[2019-07-21] MEDS: MULTIVITAMINS WITH MINERALS, THERAPEUTIC TABLET PO SCH (08:27)
[2019-07-21] MEDS: LORATADINE 10 MG TABLET PO SCH (08:27)
[2019-07-21] MEDS: DOCUSATE SODIUM 100 MG CAPSULE PO SCH (08:27)
[2019-07-21] MEDS: QUEtiapine FUMARATE 200 MG TABLET PO SCH ×2 (08:27→21:35)
[2019-07-21] MEDS: OMEPRAZOLE 20 MG CAPSULE PO SCH (08:27)
[2019-07-21] MEDS: MAGNESIUM OXIDE 400 MG TABLET PO SCH ×3 (08:27→17:41)
[2019-07-21] MEDS: TOPIRAMATE 100 MG TABLET PO SCH ×3 (08:28→17:41)
[2019-07-21] MEDS: LevETIRAcetam 250 MG TABLET PO SCH ×2 (08:28→17:41)
[2019-07-21] MEDS: OXYBUTYNIN CHLORIDE 5 MG ER TABLET PO SCH (08:28)
[2019-07-21 16:17] VITALS: BP 82/49
[2019-07-21] MEDS: GuaiFENesin [SUGAR-FREE] 200 MG/10 ML SOLUTION UDCUP PO PRN (17:41)
[2019-07-21] MEDS: HALOPERIDOL 10 MG TABLET PO SCH (21:35)
[2019-07-22] MEDS: LEVOTHYROXINE SODIUM 100 MCG TABLET PO SCH (06:59)
[2019-07-22] MEDS: FERROUS SULFATE 325 MG EC TABLET PO SCH ×2 (06:59→17:28)
[2019-07-22] MEDS: ASPIRIN 81 MG EC TABLET PO SCH (08:27)
[2019-07-22] MEDS: OMEPRAZOLE 20 MG CAPSULE PO SCH (08:27)
[2019-07-22] MEDS: QUEtiapine FUMARATE 200 MG TABLET PO SCH ×2 (08:27→21:08)
[2019-07-22] MEDS: FLUoxetine HCL 20 MG CAPSULE PO SCH (08:27)
[2019-07-22] MEDS: DOCUSATE SODIUM 100 MG CAPSULE PO SCH (08:27)
[2019-07-22] MEDS: MAGNESIUM OXIDE 400 MG TABLET PO SCH ×3 (08:28→17:28)
[2019-07-22] MEDS: TOPIRAMATE 100 MG TABLET PO SCH ×3 (08:28→17:29)
[2019-07-22] MEDS: OXYBUTYNIN CHLORIDE 5 MG ER TABLET PO SCH (08:28)
[2019-07-22] MEDS: LORATADINE 10 MG TABLET PO SCH (08:28)
[2019-07-22] MEDS: OMEGA-3/DHA/EPA/FISH OIL 1,000 MG CAPSULE PO SCH (08:28)
[2019-07-22] MEDS: MULTIVITAMINS WITH MINERALS, THERAPEUTIC TABLET PO SCH (08:28)
[2019-07-22] MEDS: ASCORBIC ACID 500 MG TABLET PO SCH (08:28)
[2019-07-22] MEDS: VALPROIC ACID 250 MG CAPSULE PO SCH ×2 (08:29→21:09)
[2019-07-22] MEDS: LevETIRAcetam 250 MG TABLET PO SCH ×2 (08:29→17:28)
[2019-07-22] MEDS: HALOPERIDOL 10 MG TABLET PO SCH (21:08)
[2019-07-23] MEDS: FERROUS SULFATE 325 MG EC TABLET PO SCH ×2 (06:54→16:40)
[2019-07-23] MEDS: LEVOTHYROXINE SODIUM 100 MCG TABLET PO SCH (06:54)
[2019-07-23] MEDS: LORATADINE 10 MG TABLET PO SCH (08:29)
[2019-07-23] MEDS: QUEtiapine FUMARATE 200 MG TABLET PO SCH ×2 (08:29→20:18)
[2019-07-23] MEDS: OMEGA-3/DHA/EPA/FISH OIL 1,000 MG CAPSULE PO SCH (08:29)
[2019-07-23] MEDS: MULTIVITAMINS WITH MINERALS, THERAPEUTIC TABLET PO SCH (08:29)
[2019-07-23] MEDS: ASPIRIN 81 MG EC TABLET PO SCH (08:30)
[2019-07-23] MEDS: MAGNESIUM OXIDE 400 MG TABLET PO SCH ×3 (08:30→16:40)
[2019-07-23] MEDS: ASCORBIC ACID 500 MG TABLET PO SCH (08:30)
[2019-07-23] MEDS: DOCUSATE SODIUM 100 MG CAPSULE PO SCH (08:30)
[2019-07-23] MEDS: OMEPRAZOLE 20 MG CAPSULE PO SCH (08:30)
[2019-07-23] MEDS: FLUoxetine HCL 20 MG CAPSULE PO SCH (08:30)
[2019-07-23] MEDS: TOPIRAMATE 100 MG TABLET PO SCH ×3 (08:31→16:39)
[2019-07-23] MEDS: VALPROIC ACID 250 MG CAPSULE PO SCH ×2 (08:31→20:18)
[2019-07-23] MEDS: LevETIRAcetam 250 MG TABLET PO SCH ×2 (08:31→16:39)
[2019-07-23] MEDS: OXYBUTYNIN CHLORIDE 5 MG ER TABLET PO SCH (09:00)
[2019-07-23 16:06] VITALS: BP 109/72
[2019-07-23] MEDS: HALOPERIDOL 10 MG TABLET PO SCH (20:18)
[2019-07-24] MEDS: FERROUS SULFATE 325 MG EC TABLET PO SCH ×2 (06:54→16:54)
[2019-07-24] MEDS: LEVOTHYROXINE SODIUM 100 MCG TABLET PO SCH (06:54)
[2019-07-24] MEDS: OMEGA-3/DHA/EPA/FISH OIL 1,000 MG CAPSULE PO SCH (08:20)
[2019-07-24] MEDS: VALPROIC ACID 250 MG CAPSULE PO SCH ×2 (08:21→20:17)
[2019-07-24] MEDS: DOCUSATE SODIUM 100 MG CAPSULE PO SCH (08:21)
[2019-07-24] MEDS: OXYBUTYNIN CHLORIDE 5 MG ER TABLET PO SCH (08:21)
[2019-07-24] MEDS: LORATADINE 10 MG TABLET PO SCH (08:21)
[2019-07-24] MEDS: LevETIRAcetam 250 MG TABLET PO SCH ×2 (08:21→16:54)
[2019-07-24] MEDS: MULTIVITAMINS WITH MINERALS, THERAPEUTIC TABLET PO SCH (08:21)
[2019-07-24] MEDS: ASPIRIN 81 MG EC TABLET PO SCH (08:21)
[2019-07-24] MEDS: OMEPRAZOLE 20 MG CAPSULE PO SCH (08:22)
[2019-07-24] MEDS: TOPIRAMATE 100 MG TABLET PO SCH ×3 (08:22→16:54)
[2019-07-24] MEDS: MAGNESIUM OXIDE 400 MG TABLET PO SCH ×3 (08:22→16:54)
[2019-07-24] MEDS: QUEtiapine FUMARATE 200 MG TABLET PO SCH ×2 (08:22→20:17)
[2019-07-24] MEDS: ASCORBIC ACID 500 MG TABLET PO SCH (08:22)
[2019-07-24] MEDS: FLUoxetine HCL 20 MG CAPSULE PO SCH (08:22)
[2019-07-24 16:08] VITALS: BP 100/66
[2019-07-24] MEDS: HALOPERIDOL 10 MG TABLET PO SCH (20:17)
[2019-07-25] MEDS: FERROUS SULFATE 325 MG EC TABLET PO SCH ×2 (06:59→16:31)
[2019-07-25] MEDS: LEVOTHYROXINE SODIUM 100 MCG TABLET PO SCH (07:00)
[2019-07-25] MEDS: OMEPRAZOLE 20 MG CAPSULE PO SCH (09:24)
[2019-07-25] MEDS: MAGNESIUM OXIDE 400 MG TABLET PO SCH ×3 (09:24→16:31)
[2019-07-25] MEDS: FLUoxetine HCL 20 MG CAPSULE PO SCH (09:24)
[2019-07-25] MEDS: LORATADINE 10 MG TABLET PO SCH (09:24)
[2019-07-25] MEDS: ASCORBIC ACID 500 MG TABLET PO SCH (09:24)
[2019-07-25] MEDS: VALPROIC ACID 250 MG CAPSULE PO SCH ×2 (09:24→20:01)
[2019-07-25] MEDS: LevETIRAcetam 250 MG TABLET PO SCH ×2 (09:24→16:31)
[2019-07-25] MEDS: ASPIRIN 81 MG EC TABLET PO SCH (09:24)
[2019-07-25] MEDS: OXYBUTYNIN CHLORIDE 5 MG ER TABLET PO SCH (09:25)
[2019-07-25] MEDS: DOCUSATE SODIUM 100 MG CAPSULE PO SCH (09:25)
[2019-07-25] MEDS: MULTIVITAMINS WITH MINERALS, THERAPEUTIC TABLET PO SCH (09:25)
[2019-07-25] MEDS: OMEGA-3/DHA/EPA/FISH OIL 1,000 MG CAPSULE PO SCH (09:25)
[2019-07-25] MEDS: TOPIRAMATE 100 MG TABLET PO SCH ×3 (09:25→16:32)
[2019-07-25] MEDS: QUEtiapine FUMARATE 200 MG TABLET PO SCH ×2 (09:25→20:01)
[2019-07-25 16:02] VITALS: BP 119/80
[2019-07-25] MEDS: HALOPERIDOL 10 MG TABLET PO SCH (20:01)
[2019-07-26] MEDS: LEVOTHYROXINE SODIUM 100 MCG TABLET PO SCH (06:49)
[2019-07-26] MEDS: FERROUS SULFATE 325 MG EC TABLET PO SCH ×2 (06:49→17:48)
[2019-07-26 08:10] VITALS: BP 108/74
[2019-07-26] MEDS: ASPIRIN 81 MG EC TABLET PO SCH (08:13)
[2019-07-26] MEDS: MULTIVITAMINS WITH MINERALS, THERAPEUTIC TABLET PO SCH (08:13)
[2019-07-26] MEDS: OMEGA-3/DHA/EPA/FISH OIL 1,000 MG CAPSULE PO SCH (08:13)
[2019-07-26] MEDS: ASCORBIC ACID 500 MG TABLET PO SCH (08:13)
[2019-07-26] MEDS: OMEPRAZOLE 20 MG CAPSULE PO SCH (08:14)
[2019-07-26] MEDS: DOCUSATE SODIUM 100 MG CAPSULE PO SCH (08:14)
[2019-07-26] MEDS: MAGNESIUM OXIDE 400 MG TABLET PO SCH ×3 (08:14→17:48)
[2019-07-26] MEDS: LORATADINE 10 MG TABLET PO SCH (08:14)
[2019-07-26] MEDS: FLUoxetine HCL 20 MG CAPSULE PO SCH (08:15)
[2019-07-26] MEDS: QUEtiapine FUMARATE 200 MG TABLET PO SCH ×2 (08:15→21:10)
[2019-07-26] MEDS: TOPIRAMATE 100 MG TABLET PO SCH ×3 (08:15→17:48)
[2019-07-26] MEDS: LevETIRAcetam 250 MG TABLET PO SCH ×2 (08:15→17:48)
[2019-07-26] MEDS: VALPROIC ACID 250 MG CAPSULE PO SCH ×2 (08:16→21:09)
[2019-07-26] MEDS: OXYBUTYNIN CHLORIDE 5 MG ER TABLET PO SCH (08:16)
[2019-07-26 16:11] VITALS: BP 90/58
[2019-07-26] MEDS: HALOPERIDOL 10 MG TABLET PO SCH (21:09)
[2019-07-27] MEDS: LEVOTHYROXINE SODIUM 100 MCG TABLET PO SCH (07:00)
[2019-07-27] MEDS: FERROUS SULFATE 325 MG EC TABLET PO SCH ×2 (07:08→16:51)
[2019-07-27 08:47] VITALS: BP 118/78
[2019-07-27] MEDS: OMEGA-3/DHA/EPA/FISH OIL 1,000 MG CAPSULE PO SCH (08:55)
[2019-07-27] MEDS: MULTIVITAMINS WITH MINERALS, THERAPEUTIC TABLET PO SCH (08:55)
[2019-07-27] MEDS: ASCORBIC ACID 500 MG TABLET PO SCH (08:55)
[2019-07-27] MEDS: QUEtiapine FUMARATE 200 MG TABLET PO SCH ×2 (08:56→21:20)
[2019-07-27] MEDS: MAGNESIUM OXIDE 400 MG TABLET PO SCH ×3 (08:56→16:51)
[2019-07-27] MEDS: FLUoxetine HCL 20 MG CAPSULE PO SCH (08:56)
[2019-07-27] MEDS: ASPIRIN 81 MG EC TABLET PO SCH (08:56)
[2019-07-27] MEDS: LORATADINE 10 MG TABLET PO SCH (08:56)
[2019-07-27] MEDS: OMEPRAZOLE 20 MG CAPSULE PO SCH (08:56)
[2019-07-27] MEDS: DOCUSATE SODIUM 100 MG CAPSULE PO SCH (08:56)
[2019-07-27] MEDS: VALPROIC ACID 250 MG CAPSULE PO SCH ×2 (08:57→21:21)
[2019-07-27] MEDS: LevETIRAcetam 250 MG TABLET PO SCH ×2 (08:57→16:50)
[2019-07-27] MEDS: OXYBUTYNIN CHLORIDE 5 MG ER TABLET PO SCH (08:57)
[2019-07-27] MEDS: TOPIRAMATE 100 MG TABLET PO SCH ×3 (08:58→16:50)
[2019-07-27] MEDS ORDERED: DEXTROSE 50%-WATER 25 GM/50 ML SYRINGE IVP PRN (18:00)
[2019-07-27 21:08] LABS: GLUCOMETER DEV NAME(LOC) 3E.I 2; GLUCOSE,POINT OF CARE 145 MG/DL (70-110)
[2019-07-27] MEDS: INSULIN LISPRO 100 UNITS/ML SQ PRN (21:11)
[2019-07-27] MEDS: HALOPERIDOL 10 MG TABLET PO SCH (21:21)
[2019-07-28 05:42] LABS: GLUCOMETER DEV NAME(LOC) 3E.I 2; GLUCOSE,POINT OF CARE 119 MG/DL (70-110)
[2019-07-28] MEDS: LEVOTHYROXINE SODIUM 100 MCG TABLET PO SCH (07:00)
[2019-07-28] MEDS: FERROUS SULFATE 325 MG EC TABLET PO SCH ×2 (07:03→16:34)
[2019-07-28] MEDS: TOPIRAMATE 100 MG TABLET PO SCH ×3 (08:15→16:34)
[2019-07-28] MEDS: ASPIRIN 81 MG EC TABLET PO SCH (08:15)
[2019-07-28] MEDS: LevETIRAcetam 250 MG TABLET PO SCH ×2 (08:15→16:33)
[2019-07-28] MEDS: LORATADINE 10 MG TABLET PO SCH (08:15)
[2019-07-28] MEDS: MAGNESIUM OXIDE 400 MG TABLET PO SCH ×3 (08:15→16:33)
[2019-07-28] MEDS: VALPROIC ACID 250 MG CAPSULE PO SCH ×2 (08:15→20:18)
[2019-07-28] MEDS: DOCUSATE SODIUM 100 MG CAPSULE PO SCH (08:16)
[2019-07-28] MEDS: ASCORBIC ACID 500 MG TABLET PO SCH (08:16)
[2019-07-28] MEDS: FLUoxetine HCL 20 MG CAPSULE PO SCH (08:16)
[2019-07-28] MEDS: OXYBUTYNIN CHLORIDE 5 MG ER TABLET PO SCH (08:16)
[2019-07-28] MEDS: OMEGA-3/DHA/EPA/FISH OIL 1,000 MG CAPSULE PO SCH (08:16)
[2019-07-28] MEDS: QUEtiapine FUMARATE 200 MG TABLET PO SCH ×2 (08:16→20:19)
[2019-07-28] MEDS: MULTIVITAMINS WITH MINERALS, THERAPEUTIC TABLET PO SCH (08:16)
[2019-07-28] MEDS: OMEPRAZOLE 20 MG CAPSULE PO SCH (08:16)
[2019-07-28 08:31] VITALS: BP 107/94
[2019-07-28 16:11] VITALS: BP 126/76
[2019-07-28] MEDS: HALOPERIDOL 10 MG TABLET PO SCH (20:18)
[2019-07-29 05:51] LABS: GLUCOMETER DEV NAME(LOC) 3E.I 2; GLUCOSE,POINT OF CARE 118 MG/DL (70-110)
[2019-07-29] MEDS: LEVOTHYROXINE SODIUM 100 MCG TABLET PO SCH (06:48)
[2019-07-29] MEDS: FERROUS SULFATE 325 MG EC TABLET PO SCH ×2 (06:49→16:39)
[2019-07-29] MEDS: DOCUSATE SODIUM 100 MG CAPSULE PO SCH (08:24)
[2019-07-29] MEDS: OMEGA-3/DHA/EPA/FISH OIL 1,000 MG CAPSULE PO SCH (08:24)
[2019-07-29] MEDS: MAGNESIUM OXIDE 400 MG TABLET PO SCH ×3 (08:24→16:39)
[2019-07-29] MEDS: LORATADINE 10 MG TABLET PO SCH (08:24)
[2019-07-29] MEDS: MULTIVITAMINS WITH MINERALS, THERAPEUTIC TABLET PO SCH (08:24)
[2019-07-29] MEDS: VALPROIC ACID 250 MG CAPSULE PO SCH ×2 (08:25→20:43)
[2019-07-29] MEDS: FLUoxetine HCL 20 MG CAPSULE PO SCH (08:25)
[2019-07-29] MEDS: OMEPRAZOLE 20 MG CAPSULE PO SCH (08:25)
[2019-07-29] MEDS: ASPIRIN 81 MG EC TABLET PO SCH (08:25)
[2019-07-29] MEDS: LevETIRAcetam 250 MG TABLET PO SCH ×2 (08:25→16:39)
[2019-07-29] MEDS: ASCORBIC ACID 500 MG TABLET PO SCH (08:26)
[2019-07-29] MEDS: OXYBUTYNIN CHLORIDE 5 MG ER TABLET PO SCH (08:26)
[2019-07-29] MEDS: TOPIRAMATE 100 MG TABLET PO SCH ×3 (08:26→16:39)
[2019-07-29] MEDS: QUEtiapine FUMARATE 200 MG TABLET PO SCH ×2 (08:27→20:44)
[2019-07-29 16:02] VITALS: BP 101/70
[2019-07-29 17:15] LABS: GLUCOMETER DEV NAME(LOC) 3E.I 2; GLUCOSE,POINT OF CARE 131 MG/DL (70-110)
[2019-07-29] MEDS: HALOPERIDOL 10 MG TABLET PO SCH (20:43)
[2019-07-30 05:44] LABS: GLUCOMETER DEV NAME(LOC) 3E.I 2; GLUCOSE,POINT OF CARE 93 MG/DL (70-110)
[2019-07-30] MEDS: LEVOTHYROXINE SODIUM 100 MCG TABLET PO SCH (06:43)
[2019-07-30] MEDS: FERROUS SULFATE 325 MG EC TABLET PO SCH ×2 (06:43→17:18)
[2019-07-30 08:33] VITALS: BP 103/52
[2019-07-30] MEDS: MULTIVITAMINS WITH MINERALS, THERAPEUTIC TABLET PO SCH (09:39)
[2019-07-30] MEDS: OMEGA-3/DHA/EPA/FISH OIL 1,000 MG CAPSULE PO SCH (09:39)
[2019-07-30] MEDS: LORATADINE 10 MG TABLET PO SCH (09:39)
[2019-07-30] MEDS: DOCUSATE SODIUM 100 MG CAPSULE PO SCH (09:39)
[2019-07-30] MEDS: TOPIRAMATE 100 MG TABLET PO SCH ×3 (09:39→17:18)
[2019-07-30] MEDS: MAGNESIUM OXIDE 400 MG TABLET PO SCH ×3 (09:39→17:18)
[2019-07-30] MEDS: OMEPRAZOLE 20 MG CAPSULE PO SCH (09:39)
[2019-07-30] MEDS: FLUoxetine HCL 20 MG CAPSULE PO SCH (09:39)
[2019-07-30] MEDS: ASPIRIN 81 MG EC TABLET PO SCH (09:39)
[2019-07-30] MEDS: OXYBUTYNIN CHLORIDE 5 MG ER TABLET PO SCH (09:40)
[2019-07-30] MEDS: ASCORBIC ACID 500 MG TABLET PO SCH (09:40)
[2019-07-30] MEDS: VALPROIC ACID 250 MG CAPSULE PO SCH ×2 (09:40→21:33)
[2019-07-30] MEDS: LevETIRAcetam 250 MG TABLET PO SCH ×2 (09:40→17:18)
[2019-07-30] MEDS: QUEtiapine FUMARATE 200 MG TABLET PO SCH ×2 (09:41→21:33)
[2019-07-30 16:14] VITALS: BP 123/66
[2019-07-30] MEDS: INSULIN LISPRO 100 UNITS/ML SQ PRN (17:31)
[2019-07-30 17:41] LABS: GLUCOMETER DEV NAME(LOC) 3E.I 2; GLUCOSE,POINT OF CARE 147 MG/DL (70-110)
[2019-07-30] MEDS: HALOPERIDOL 10 MG TABLET PO SCH (21:33)
[2019-07-31] MEDS: LEVOTHYROXINE SODIUM 100 MCG TABLET PO SCH (06:03)
[2019-07-31 06:11] LABS: GLUCOMETER DEV NAME(LOC) 3E.I 2; GLUCOSE,POINT OF CARE 140 MG/DL (70-110)
[2019-07-31] MEDS: FERROUS SULFATE 325 MG EC TABLET PO SCH ×2 (06:31→16:38)
[2019-07-31] MEDS: TOPIRAMATE 100 MG TABLET PO SCH ×3 (08:17→16:38)
[2019-07-31] MEDS: FLUoxetine HCL 20 MG CAPSULE PO SCH (08:18)
[2019-07-31] MEDS: MAGNESIUM OXIDE 400 MG TABLET PO SCH ×3 (08:18→16:38)
[2019-07-31] MEDS: ASPIRIN 81 MG EC TABLET PO SCH (08:18)
[2019-07-31] MEDS: DOCUSATE SODIUM 100 MG CAPSULE PO SCH (08:18)
[2019-07-31] MEDS: OMEPRAZOLE 20 MG CAPSULE PO SCH (08:18)
[2019-07-31] MEDS: ASCORBIC ACID 500 MG TABLET PO SCH (08:19)
[2019-07-31] MEDS: OMEGA-3/DHA/EPA/FISH OIL 1,000 MG CAPSULE PO SCH (08:19)
[2019-07-31] MEDS: VALPROIC ACID 250 MG CAPSULE PO SCH ×2 (08:19→20:16)
[2019-07-31] MEDS: OXYBUTYNIN CHLORIDE 5 MG ER TABLET PO SCH (08:19)
[2019-07-31] MEDS: LevETIRAcetam 250 MG TABLET PO SCH ×2 (08:19→16:38)
[2019-07-31] MEDS: LORATADINE 10 MG TABLET PO SCH (08:20)
[2019-07-31] MEDS: MULTIVITAMINS WITH MINERALS, THERAPEUTIC TABLET PO SCH (08:20)
[2019-07-31] MEDS: QUEtiapine FUMARATE 200 MG TABLET PO SCH ×2 (08:20→20:15)
[2019-07-31 09:15] VITALS: BP 129/98
[2019-07-31 16:55] VITALS: BP 130/80
[2019-07-31 16:56] LABS: GLUCOMETER DEV NAME(LOC) 3E.I 2; GLUCOSE,POINT OF CARE 124 MG/DL (70-110)
[2019-07-31] MEDS: HALOPERIDOL 10 MG TABLET PO SCH (20:16)
[2019-08-01 06:00] LABS: GLUCOMETER DEV NAME(LOC) 3E.I 2; GLUCOSE,POINT OF CARE 110 MG/DL (70-110)
[2019-08-01] MEDS: FERROUS SULFATE 325 MG EC TABLET PO SCH ×2 (06:58→17:23)
[2019-08-01] MEDS: LEVOTHYROXINE SODIUM 100 MCG TABLET PO SCH (06:58)
[2019-08-01] MEDS: LORATADINE 10 MG TABLET PO SCH (08:14)
[2019-08-01] MEDS: DOCUSATE SODIUM 100 MG CAPSULE PO SCH (08:15)
[2019-08-01] MEDS: VALPROIC ACID 250 MG CAPSULE PO SCH ×2 (08:16→21:23)
[2019-08-01] MEDS: OXYBUTYNIN CHLORIDE 5 MG ER TABLET PO SCH (08:17)
[2019-08-01] MEDS: ASPIRIN 81 MG EC TABLET PO SCH (08:19)
[2019-08-01] MEDS: LevETIRAcetam 250 MG TABLET PO SCH ×2 (08:21→17:23)
[2019-08-01] MEDS: OMEGA-3/DHA/EPA/FISH OIL 1,000 MG CAPSULE PO SCH (08:22)
[2019-08-01] MEDS: MAGNESIUM OXIDE 400 MG TABLET PO SCH ×3 (08:22→17:23)
[2019-08-01] MEDS: FLUoxetine HCL 20 MG CAPSULE PO SCH (08:23)
[2019-08-01] MEDS: OMEPRAZOLE 20 MG CAPSULE PO SCH (08:23)
[2019-08-01] MEDS: QUEtiapine FUMARATE 200 MG TABLET PO SCH ×2 (08:24→21:23)
[2019-08-01] MEDS: TOPIRAMATE 100 MG TABLET PO SCH ×3 (08:25→17:23)
[2019-08-01] MEDS: MULTIVITAMINS WITH MINERALS, THERAPEUTIC TABLET PO SCH (08:25)
[2019-08-01] MEDS: ASCORBIC ACID 500 MG TABLET PO SCH (08:26)
[2019-08-01 17:46] LABS: GLUCOMETER DEV NAME(LOC) 3E.I 2; GLUCOSE,POINT OF CARE 155 MG/DL (70-110)
[2019-08-01] MEDS: INSULIN LISPRO 100 UNITS/ML SQ PRN (17:59)
[2019-08-01 20:49] VITALS: BP 119/55
[2019-08-01] MEDS: HALOPERIDOL 10 MG TABLET PO SCH (21:23)
[2019-08-02 05:48] LABS: GLUCOMETER DEV NAME(LOC) 3E.I 2; GLUCOSE,POINT OF CARE 141 MG/DL (70-110)
[2019-08-02] MEDS: LEVOTHYROXINE SODIUM 100 MCG TABLET PO SCH (06:33)
[2019-08-02] MEDS: FERROUS SULFATE 325 MG EC TABLET PO SCH ×2 (06:33→17:23)
[2019-08-02] MEDS: INSULIN LISPRO 100 UNITS/ML SQ PRN (07:16)
[2019-08-02] MEDS: VALPROIC ACID 250 MG CAPSULE PO SCH ×2 (08:52→20:04)
[2019-08-02] MEDS: DOCUSATE SODIUM 100 MG CAPSULE PO SCH (08:52)
[2019-08-02] MEDS: OMEGA-3/DHA/EPA/FISH OIL 1,000 MG CAPSULE PO SCH (08:52)
[2019-08-02] MEDS: OMEPRAZOLE 20 MG CAPSULE PO SCH (08:52)
[2019-08-02] MEDS: FLUoxetine HCL 20 MG CAPSULE PO SCH (08:53)
[2019-08-02] MEDS: LORATADINE 10 MG TABLET PO SCH (08:53)
[2019-08-02] MEDS: ASPIRIN 81 MG EC TABLET PO SCH (08:53)
[2019-08-02] MEDS: TOPIRAMATE 100 MG TABLET PO SCH ×4 (08:53→17:23)
[2019-08-02] MEDS: QUEtiapine FUMARATE 200 MG TABLET PO SCH ×2 (08:53→20:04)
[2019-08-02] MEDS: LevETIRAcetam 250 MG TABLET PO SCH ×2 (08:54→17:23)
[2019-08-02] MEDS: MULTIVITAMINS WITH MINERALS, THERAPEUTIC TABLET PO SCH (08:54)
[2019-08-02] MEDS: OXYBUTYNIN CHLORIDE 5 MG ER TABLET PO SCH (08:54)
[2019-08-02] MEDS: MAGNESIUM OXIDE 400 MG TABLET PO SCH ×4 (08:54→17:23)
[2019-08-02] MEDS: ASCORBIC ACID 500 MG TABLET PO SCH (08:54)
[2019-08-02 10:26] VITALS: BP 107/75
[2019-08-02 16:11] VITALS: BP 126/81
[2019-08-02 17:14] LABS: GLUCOMETER DEV NAME(LOC) 3E.I 2; GLUCOSE,POINT OF CARE 121 MG/DL (70-110)
[2019-08-02] MEDS: HALOPERIDOL 10 MG TABLET PO SCH (20:04)
[2019-08-03 05:51] LABS: GLUCOMETER DEV NAME(LOC) 3E.I 2; GLUCOSE,POINT OF CARE 127 MG/DL (70-110)
[2019-08-03] MEDS: FERROUS SULFATE 325 MG EC TABLET PO SCH ×2 (06:47→16:51)
[2019-08-03] MEDS: LEVOTHYROXINE SODIUM 100 MCG TABLET PO SCH (06:47)
[2019-08-03] MEDS: OMEPRAZOLE 20 MG CAPSULE PO SCH (08:00)
[2019-08-03] MEDS: ASPIRIN 81 MG EC TABLET PO SCH (08:00)
[2019-08-03] MEDS: LORATADINE 10 MG TABLET PO SCH (08:01)
[2019-08-03] MEDS: DOCUSATE SODIUM 100 MG CAPSULE PO SCH (08:01)
[2019-08-03] MEDS: MAGNESIUM OXIDE 400 MG TABLET PO SCH ×3 (08:01→16:51)
[2019-08-03] MEDS: FLUoxetine HCL 20 MG CAPSULE PO SCH (08:01)
[2019-08-03] MEDS: OMEGA-3/DHA/EPA/FISH OIL 1,000 MG CAPSULE PO SCH (08:01)
[2019-08-03] MEDS: MULTIVITAMINS WITH MINERALS, THERAPEUTIC TABLET PO SCH (08:01)
[2019-08-03] MEDS: QUEtiapine FUMARATE 200 MG TABLET PO SCH ×2 (08:01→20:25)
[2019-08-03] MEDS: TOPIRAMATE 100 MG TABLET PO SCH ×3 (08:02→16:51)
[2019-08-03] MEDS: VALPROIC ACID 250 MG CAPSULE PO SCH ×2 (08:02→20:26)
[2019-08-03] MEDS: ASCORBIC ACID 500 MG TABLET PO SCH (08:02)
[2019-08-03] MEDS: OXYBUTYNIN CHLORIDE 5 MG ER TABLET PO SCH (08:02)
[2019-08-03] MEDS: LevETIRAcetam 250 MG TABLET PO SCH ×2 (08:02→16:51)
[2019-08-03 08:41] VITALS: BP 121/72
[2019-08-03 16:06] VITALS: BP 101/70
[2019-08-03 17:14] LABS: GLUCOMETER DEV NAME(LOC) 3E.I 2; GLUCOSE,POINT OF CARE 147 MG/DL (70-110)
[2019-08-03] MEDS: INSULIN LISPRO 100 UNITS/ML SQ PRN (17:20)
[2019-08-03] MEDS: HALOPERIDOL 10 MG TABLET PO SCH (20:26)
[2019-08-04 06:12] LABS: GLUCOMETER DEV NAME(LOC) 3E.I 2; GLUCOSE,POINT OF CARE 76 MG/DL (70-110)
[2019-08-04] MEDS: LEVOTHYROXINE SODIUM 100 MCG TABLET PO SCH (07:01)
[2019-08-04] MEDS: FERROUS SULFATE 325 MG EC TABLET PO SCH ×2 (07:02→17:36)
[2019-08-04 08:00] VITALS: BP 116/65
[2019-08-04] MEDS: MULTIVITAMINS WITH MINERALS, THERAPEUTIC TABLET PO SCH (08:06)
[2019-08-04] MEDS: FLUoxetine HCL 20 MG CAPSULE PO SCH (08:06)
[2019-08-04] MEDS: OMEGA-3/DHA/EPA/FISH OIL 1,000 MG CAPSULE PO SCH (08:06)
[2019-08-04] MEDS: MAGNESIUM OXIDE 400 MG TABLET PO SCH ×3 (08:06→17:36)
[2019-08-04] MEDS: OMEPRAZOLE 20 MG CAPSULE PO SCH (08:06)
[2019-08-04] MEDS: QUEtiapine FUMARATE 200 MG TABLET PO SCH ×2 (08:06→21:00)
[2019-08-04] MEDS: LORATADINE 10 MG TABLET PO SCH (08:06)
[2019-08-04] MEDS: DOCUSATE SODIUM 100 MG CAPSULE PO SCH (08:06)
[2019-08-04] MEDS: ASPIRIN 81 MG EC TABLET PO SCH (08:07)
[2019-08-04] MEDS: OXYBUTYNIN CHLORIDE 5 MG ER TABLET PO SCH (08:07)
[2019-08-04] MEDS: VALPROIC ACID 250 MG CAPSULE PO SCH ×2 (08:07→21:00)
[2019-08-04] MEDS: LevETIRAcetam 250 MG TABLET PO SCH ×2 (08:07→17:36)
[2019-08-04] MEDS: ASCORBIC ACID 500 MG TABLET PO SCH (08:08)
[2019-08-04] MEDS: TOPIRAMATE 100 MG TABLET PO SCH ×3 (08:08→17:36)
[2019-08-04 16:09] VITALS: BP 90/53
[2019-08-04 17:20] LABS: GLUCOMETER DEV NAME(LOC) 3E.I 2; GLUCOSE,POINT OF CARE 122 MG/DL (70-110)
[2019-08-04] MEDS: HALOPERIDOL 10 MG TABLET PO SCH (21:00)
[2019-08-05 05:48] LABS: GLUCOMETER DEV NAME(LOC) 3E.I 2; GLUCOSE,POINT OF CARE 74 MG/DL (70-110)
[2019-08-05] MEDS: FERROUS SULFATE 325 MG EC TABLET PO SCH ×2 (06:57→16:53)
[2019-08-05] MEDS: LEVOTHYROXINE SODIUM 100 MCG TABLET PO SCH (06:57)
[2019-08-05 08:09] VITALS: BP 110/73
[2019-08-05] MEDS: VALPROIC ACID 250 MG CAPSULE PO SCH ×2 (09:39→20:18)
[2019-08-05] MEDS: TOPIRAMATE 100 MG TABLET PO SCH ×3 (09:39→16:53)
[2019-08-05] MEDS: LevETIRAcetam 250 MG TABLET PO SCH ×2 (09:39→16:53)
[2019-08-05] MEDS: ASCORBIC ACID 500 MG TABLET PO SCH (09:39)
[2019-08-05] MEDS: OXYBUTYNIN CHLORIDE 5 MG ER TABLET PO SCH (09:39)
[2019-08-05] MEDS: MAGNESIUM OXIDE 400 MG TABLET PO SCH ×3 (09:41→16:53)
[2019-08-05] MEDS: ASPIRIN 81 MG EC TABLET PO SCH (09:41)
[2019-08-05] MEDS: OMEGA-3/DHA/EPA/FISH OIL 1,000 MG CAPSULE PO SCH (09:41)
[2019-08-05] MEDS: MULTIVITAMINS WITH MINERALS, THERAPEUTIC TABLET PO SCH (09:42)
[2019-08-05] MEDS: QUEtiapine FUMARATE 200 MG TABLET PO SCH ×2 (09:42→20:18)
[2019-08-05] MEDS: DOCUSATE SODIUM 100 MG CAPSULE PO SCH (09:43)
[2019-08-05] MEDS: OMEPRAZOLE 20 MG CAPSULE PO SCH (09:43)
[2019-08-05] MEDS: LORATADINE 10 MG TABLET PO SCH (09:43)
[2019-08-05] MEDS: FLUoxetine HCL 20 MG CAPSULE PO SCH (09:43)
[2019-08-05 16:10] VITALS: BP 90/86
[2019-08-05] MEDS: INSULIN LISPRO 100 UNITS/ML SQ PRN (17:43)
[2019-08-05 17:51] LABS: GLUCOMETER DEV NAME(LOC) 3E.I 2; GLUCOSE,POINT OF CARE 174 MG/DL (70-110)
[2019-08-05] MEDS: HALOPERIDOL 10 MG TABLET PO SCH (20:18)
[2019-08-06 05:58] LABS: GLUCOMETER DEV NAME(LOC) 3E.I 2; GLUCOSE,POINT OF CARE 78 MG/DL (70-110)
[2019-08-06] MEDS: LEVOTHYROXINE SODIUM 100 MCG TABLET PO SCH (06:49)
[2019-08-06] MEDS: FERROUS SULFATE 325 MG EC TABLET PO SCH ×2 (06:50→17:00)
[2019-08-06] MEDS: OXYBUTYNIN CHLORIDE 5 MG ER TABLET PO SCH (07:55)
[2019-08-06] MEDS: VALPROIC ACID 250 MG CAPSULE PO SCH ×2 (07:55→20:03)
[2019-08-06] MEDS: ASCORBIC ACID 500 MG TABLET PO SCH (07:56)
[2019-08-06] MEDS: TOPIRAMATE 100 MG TABLET PO SCH ×3 (07:56→17:00)
[2019-08-06] MEDS: MAGNESIUM OXIDE 400 MG TABLET PO SCH ×3 (08:01→17:00)
[2019-08-06] MEDS: OMEPRAZOLE 20 MG CAPSULE PO SCH (08:01)
[2019-08-06] MEDS: QUEtiapine FUMARATE 200 MG TABLET PO SCH ×2 (08:01→20:02)
[2019-08-06] MEDS: MULTIVITAMINS WITH MINERALS, THERAPEUTIC TABLET PO SCH (08:01)
[2019-08-06] MEDS: FLUoxetine HCL 20 MG CAPSULE PO SCH (08:02)
[2019-08-06] MEDS: ASPIRIN 81 MG EC TABLET PO SCH (08:03)
[2019-08-06] MEDS: OMEGA-3/DHA/EPA/FISH OIL 1,000 MG CAPSULE PO SCH (08:03)
[2019-08-06] MEDS: DOCUSATE SODIUM 100 MG CAPSULE PO SCH (08:04)
[2019-08-06] MEDS: LevETIRAcetam 250 MG TABLET PO SCH ×2 (08:04→17:00)
[2019-08-06] MEDS: LORATADINE 10 MG TABLET PO SCH (08:04)
[2019-08-06 10:52] VITALS: BP 110/58
[2019-08-06 16:09] VITALS: BP 95/59
[2019-08-06 17:20] LABS: GLUCOMETER DEV NAME(LOC) 3E.I 2; GLUCOSE,POINT OF CARE 150 MG/DL (70-110)
[2019-08-06] MEDS: INSULIN LISPRO 100 UNITS/ML SQ PRN (17:26)
[2019-08-06] MEDS: HALOPERIDOL 10 MG TABLET PO SCH (20:03)
[2019-08-07 05:23] LABS: GLUCOMETER DEV NAME(LOC) 3E.I 2; GLUCOSE,POINT OF CARE 121 MG/DL (70-110)
[2019-08-07] MEDS: LEVOTHYROXINE SODIUM 100 MCG TABLET PO SCH (06:45)
[2019-08-07] MEDS: FERROUS SULFATE 325 MG EC TABLET PO SCH ×2 (06:45→17:31)
[2019-08-07] MEDS: LevETIRAcetam 250 MG TABLET PO SCH ×2 (08:04→17:31)
[2019-08-07] MEDS: OMEGA-3/DHA/EPA/FISH OIL 1,000 MG CAPSULE PO SCH (08:04)
[2019-08-07] MEDS: ASPIRIN 81 MG EC TABLET PO SCH (08:04)
[2019-08-07] MEDS: DOCUSATE SODIUM 100 MG CAPSULE PO SCH (08:04)
[2019-08-07] MEDS: LORATADINE 10 MG TABLET PO SCH (08:04)
[2019-08-07] MEDS: OMEPRAZOLE 20 MG CAPSULE PO SCH (08:04)
[2019-08-07] MEDS: VALPROIC ACID 250 MG CAPSULE PO SCH ×2 (08:04→20:13)
[2019-08-07] MEDS: OXYBUTYNIN CHLORIDE 5 MG ER TABLET PO SCH (08:05)
[2019-08-07] MEDS: MULTIVITAMINS WITH MINERALS, THERAPEUTIC TABLET PO SCH (08:05)
[2019-08-07] MEDS: QUEtiapine FUMARATE 200 MG TABLET PO SCH ×2 (08:05→20:13)
[2019-08-07] MEDS: ASCORBIC ACID 500 MG TABLET PO SCH (08:05)
[2019-08-07] MEDS: TOPIRAMATE 100 MG TABLET PO SCH ×3 (08:05→17:30)
[2019-08-07] MEDS: FLUoxetine HCL 20 MG CAPSULE PO SCH (08:05)
[2019-08-07] MEDS: MAGNESIUM OXIDE 400 MG TABLET PO SCH ×3 (08:05→17:31)
[2019-08-07 17:03] LABS: GLUCOMETER DEV NAME(LOC) 3E.I 2; GLUCOSE,POINT OF CARE 110 MG/DL (70-110)
[2019-08-07 18:28] VITALS: BP 95/64
[2019-08-07] MEDS: HALOPERIDOL 10 MG TABLET PO SCH (20:15)
[2019-08-08 06:07] LABS: GLUCOMETER DEV NAME(LOC) 3E.I 2; GLUCOSE,POINT OF CARE 70 MG/DL (70-110)
[2019-08-08] MEDS: LEVOTHYROXINE SODIUM 100 MCG TABLET PO SCH (06:52)
[2019-08-08] MEDS: FERROUS SULFATE 325 MG EC TABLET PO SCH ×2 (06:52→17:16)
[2019-08-08] MEDS: DOCUSATE SODIUM 100 MG CAPSULE PO SCH (08:06)
[2019-08-08] MEDS: OMEPRAZOLE 20 MG CAPSULE PO SCH (08:06)
[2019-08-08] MEDS: LevETIRAcetam 250 MG TABLET PO SCH ×2 (08:06→17:15)
[2019-08-08] MEDS: OMEGA-3/DHA/EPA/FISH OIL 1,000 MG CAPSULE PO SCH (08:06)
[2019-08-08] MEDS: OXYBUTYNIN CHLORIDE 5 MG ER TABLET PO SCH (08:06)
[2019-08-08] MEDS: MAGNESIUM OXIDE 400 MG TABLET PO SCH ×3 (08:06→17:15)
[2019-08-08] MEDS: ASPIRIN 81 MG EC TABLET PO SCH (08:06)
[2019-08-08] MEDS: MULTIVITAMINS WITH MINERALS, THERAPEUTIC TABLET PO SCH (08:06)
[2019-08-08] MEDS: FLUoxetine HCL 20 MG CAPSULE PO SCH (08:06)
[2019-08-08] MEDS: VALPROIC ACID 250 MG CAPSULE PO SCH ×2 (08:06→19:07)
[2019-08-08] MEDS: QUEtiapine FUMARATE 200 MG TABLET PO SCH ×2 (08:07→19:58)
[2019-08-08] MEDS: LORATADINE 10 MG TABLET PO SCH (08:07)
[2019-08-08] MEDS: ASCORBIC ACID 500 MG TABLET PO SCH (08:07)
[2019-08-08] MEDS: TOPIRAMATE 100 MG TABLET PO SCH ×3 (08:07→17:15)
[2019-08-08 09:15] VITALS: BP 102/54
[2019-08-08 17:49] LABS: GLUCOMETER DEV NAME(LOC) 3E.I 2; GLUCOSE,POINT OF CARE 131 MG/DL (70-110)
[2019-08-08] MEDS: HALOPERIDOL 10 MG TABLET PO SCH (19:07)
[2019-08-09 05:58] LABS: GLUCOMETER DEV NAME(LOC) 3E.I 2; GLUCOSE,POINT OF CARE 90 MG/DL (70-110)
[2019-08-09] MEDS: FERROUS SULFATE 325 MG EC TABLET PO SCH ×2 (07:04→17:10)
[2019-08-09] MEDS: LEVOTHYROXINE SODIUM 100 MCG TABLET PO SCH (07:04)
[2019-08-09] MEDS: DOCUSATE SODIUM 100 MG CAPSULE PO SCH (08:02)
[2019-08-09] MEDS: MULTIVITAMINS WITH MINERALS, THERAPEUTIC TABLET PO SCH (08:02)
[2019-08-09] MEDS: ASCORBIC ACID 500 MG TABLET PO SCH (08:02)
[2019-08-09] MEDS: MAGNESIUM OXIDE 400 MG TABLET PO SCH ×3 (08:02→17:10)
[2019-08-09] MEDS: LORATADINE 10 MG TABLET PO SCH (08:02)
[2019-08-09] MEDS: OMEGA-3/DHA/EPA/FISH OIL 1,000 MG CAPSULE PO SCH (08:02)
[2019-08-09] MEDS: LevETIRAcetam 250 MG TABLET PO SCH ×2 (08:02→17:09)
[2019-08-09] MEDS: OXYBUTYNIN CHLORIDE 5 MG ER TABLET PO SCH (08:02)
[2019-08-09] MEDS: ASPIRIN 81 MG EC TABLET PO SCH (08:02)
[2019-08-09] MEDS: OMEPRAZOLE 20 MG CAPSULE PO SCH (08:02)
[2019-08-09] MEDS: QUEtiapine FUMARATE 200 MG TABLET PO SCH ×2 (08:03→21:58)
[2019-08-09] MEDS: TOPIRAMATE 100 MG TABLET PO SCH ×3 (08:03→17:10)
[2019-08-09] MEDS: FLUoxetine HCL 20 MG CAPSULE PO SCH (08:03)
[2019-08-09] MEDS: VALPROIC ACID 250 MG CAPSULE PO SCH ×2 (08:03→21:58)
[2019-08-09 09:59] VITALS: BP 96/60
[2019-08-09 16:18] VITALS: BP 118/90
[2019-08-09] MEDS: INSULIN LISPRO 100 UNITS/ML SQ PRN (17:22)
[2019-08-09 17:32] LABS: GLUCOMETER DEV NAME(LOC) 3E.I 2; GLUCOSE,POINT OF CARE 157 MG/DL (70-110)
[2019-08-09] MEDS: HALOPERIDOL 10 MG TABLET PO SCH (21:58)
[2019-08-10 06:17] LABS: GLUCOMETER DEV NAME(LOC) 3E.I 2; GLUCOSE,POINT OF CARE 85 MG/DL (70-110)
[2019-08-10] MEDS: FERROUS SULFATE 325 MG EC TABLET PO SCH ×2 (06:46→18:57)
[2019-08-10] MEDS: LEVOTHYROXINE SODIUM 100 MCG TABLET PO SCH (06:46)
[2019-08-10] MEDS: MAGNESIUM OXIDE 400 MG TABLET PO SCH ×3 (08:18→18:57)
[2019-08-10] MEDS: OMEPRAZOLE 20 MG CAPSULE PO SCH (08:18)
[2019-08-10] MEDS: QUEtiapine FUMARATE 200 MG TABLET PO SCH ×2 (08:18→20:19)
[2019-08-10] MEDS: ASPIRIN 81 MG EC TABLET PO SCH (08:19)
[2019-08-10] MEDS: OMEGA-3/DHA/EPA/FISH OIL 1,000 MG CAPSULE PO SCH (08:19)
[2019-08-10] MEDS: FLUoxetine HCL 20 MG CAPSULE PO SCH (08:19)
[2019-08-10] MEDS: LORATADINE 10 MG TABLET PO SCH (08:19)
[2019-08-10] MEDS: DOCUSATE SODIUM 100 MG CAPSULE PO SCH (08:19)
[2019-08-10] MEDS: LevETIRAcetam 250 MG TABLET PO SCH ×2 (08:19→18:57)
[2019-08-10] MEDS: MULTIVITAMINS WITH MINERALS, THERAPEUTIC TABLET PO SCH (08:19)
[2019-08-10] MEDS: TOPIRAMATE 100 MG TABLET PO SCH ×3 (08:20→18:57)
[2019-08-10] MEDS: OXYBUTYNIN CHLORIDE 5 MG ER TABLET PO SCH (08:20)
[2019-08-10] MEDS: VALPROIC ACID 250 MG CAPSULE PO SCH ×2 (08:20→20:19)
[2019-08-10] MEDS: ASCORBIC ACID 500 MG TABLET PO SCH (08:21)
[2019-08-10 08:48] VITALS: BP 115/53
[2019-08-10 16:54] LABS: GLUCOMETER DEV NAME(LOC) 3E.I 2; GLUCOSE,POINT OF CARE 155 MG/DL (70-110)
[2019-08-10] MEDS: INSULIN LISPRO 100 UNITS/ML SQ PRN (19:24)
[2019-08-10] MEDS: HALOPERIDOL 10 MG TABLET PO SCH (20:20)
[2019-08-10 21:13] VITALS: BP 131/100
[2019-08-11 05:53] LABS: GLUCOMETER DEV NAME(LOC) 3E.I 2; GLUCOSE,POINT OF CARE 106 MG/DL (70-110)
[2019-08-11] MEDS: FERROUS SULFATE 325 MG EC TABLET PO SCH ×2 (06:44→16:56)
[2019-08-11] MEDS: LEVOTHYROXINE SODIUM 100 MCG TABLET PO SCH (06:44)
[2019-08-11] MEDS: LORATADINE 10 MG TABLET PO SCH (08:01)
[2019-08-11] MEDS: ASPIRIN 81 MG EC TABLET PO SCH (08:03)
[2019-08-11] MEDS: OMEGA-3/DHA/EPA/FISH OIL 1,000 MG CAPSULE PO SCH (08:03)
[2019-08-11] MEDS: OXYBUTYNIN CHLORIDE 5 MG ER TABLET PO SCH (08:03)
[2019-08-11] MEDS: VALPROIC ACID 250 MG CAPSULE PO SCH ×2 (08:03→20:01)
[2019-08-11] MEDS: MAGNESIUM OXIDE 400 MG TABLET PO SCH ×3 (08:04→16:56)
[2019-08-11] MEDS: LevETIRAcetam 250 MG TABLET PO SCH ×2 (08:04→16:56)
[2019-08-11] MEDS: OMEPRAZOLE 20 MG CAPSULE PO SCH (08:04)
[2019-08-11] MEDS: TOPIRAMATE 100 MG TABLET PO SCH ×3 (08:04→16:55)
[2019-08-11] MEDS: FLUoxetine HCL 20 MG CAPSULE PO SCH (08:04)
[2019-08-11] MEDS: QUEtiapine FUMARATE 200 MG TABLET PO SCH ×2 (08:04→20:01)
[2019-08-11] MEDS: MULTIVITAMINS WITH MINERALS, THERAPEUTIC TABLET PO SCH (08:04)
[2019-08-11] MEDS: ASCORBIC ACID 500 MG TABLET PO SCH (08:05)
[2019-08-11] MEDS: DOCUSATE SODIUM 100 MG CAPSULE PO SCH (08:06)
[2019-08-11 13:02] VITALS: BP 98/51
[2019-08-11 17:12] VITALS: BP 130/68
[2019-08-11] MEDS: INSULIN LISPRO 100 UNITS/ML SQ PRN (17:14)
[2019-08-11 17:24] LABS: GLUCOMETER DEV NAME(LOC) 3E.I 2; GLUCOSE,POINT OF CARE 187 MG/DL (70-110)
[2019-08-11] MEDS: HALOPERIDOL 10 MG TABLET PO SCH (20:00)
[2019-08-12 00:03] VITALS: BP 77/63
[2019-08-12 05:41] LABS: GLUCOMETER DEV NAME(LOC) 3E.I 2; GLUCOSE,POINT OF CARE 92 MG/DL (70-110)
[2019-08-12] MEDS: FERROUS SULFATE 325 MG EC TABLET PO SCH ×2 (06:45→16:47)
[2019-08-12] MEDS: LEVOTHYROXINE SODIUM 100 MCG TABLET PO SCH (06:45)
[2019-08-12] MEDS: ASPIRIN 81 MG EC TABLET PO SCH (09:28)
[2019-08-12] MEDS: OMEGA-3/DHA/EPA/FISH OIL 1,000 MG CAPSULE PO SCH (09:28)
[2019-08-12] MEDS: LORATADINE 10 MG TABLET PO SCH (09:28)
[2019-08-12] MEDS: MAGNESIUM OXIDE 400 MG TABLET PO SCH ×3 (09:28→16:47)
[2019-08-12] MEDS: OXYBUTYNIN CHLORIDE 5 MG ER TABLET PO SCH (09:29)
[2019-08-12] MEDS: TOPIRAMATE 100 MG TABLET PO SCH ×3 (09:29→16:47)
[2019-08-12] MEDS: OMEPRAZOLE 20 MG CAPSULE PO SCH (09:29)
[2019-08-12] MEDS: ASCORBIC ACID 500 MG TABLET PO SCH (09:29)
[2019-08-12] MEDS: DOCUSATE SODIUM 100 MG CAPSULE PO SCH (09:29)
[2019-08-12] MEDS: LevETIRAcetam 250 MG TABLET PO SCH ×2 (09:30→16:47)
[2019-08-12] MEDS: QUEtiapine FUMARATE 200 MG TABLET PO SCH ×2 (09:30→20:06)
[2019-08-12] MEDS: FLUoxetine HCL 20 MG CAPSULE PO SCH (09:30)
[2019-08-12] MEDS: VALPROIC ACID 250 MG CAPSULE PO SCH ×2 (09:31→20:06)
[2019-08-12] MEDS: MULTIVITAMINS WITH MINERALS, THERAPEUTIC TABLET PO SCH (09:31)
[2019-08-12 09:44] VITALS: BP 138/98
[2019-08-12 16:41] LABS: GLUCOMETER DEV NAME(LOC) 3E.I 2; GLUCOSE,POINT OF CARE 193 MG/DL (70-110)
[2019-08-12] MEDS: INSULIN LISPRO 100 UNITS/ML SQ PRN (16:48)
[2019-08-12 17:16] VITALS: BP 80/60
[2019-08-12] MEDS: HALOPERIDOL 10 MG TABLET PO SCH (20:05)
[2019-08-13 05:42] LABS: GLUCOMETER DEV NAME(LOC) 3E.I 2; GLUCOSE,POINT OF CARE 137 MG/DL (70-110)
[2019-08-13] MEDS: FERROUS SULFATE 325 MG EC TABLET PO SCH ×2 (06:45→17:47)
[2019-08-13] MEDS: LEVOTHYROXINE SODIUM 100 MCG TABLET PO SCH (06:45)
[2019-08-13] MEDS: MULTIVITAMINS WITH MINERALS, THERAPEUTIC TABLET PO SCH (08:26)
[2019-08-13] MEDS: LORATADINE 10 MG TABLET PO SCH (08:26)
[2019-08-13] MEDS: FLUoxetine HCL 20 MG CAPSULE PO SCH (08:26)
[2019-08-13] MEDS: OMEGA-3/DHA/EPA/FISH OIL 1,000 MG CAPSULE PO SCH (08:26)
[2019-08-13] MEDS: ASPIRIN 81 MG EC TABLET PO SCH (08:26)
[2019-08-13] MEDS: MAGNESIUM OXIDE 400 MG TABLET PO SCH ×3 (08:26→17:47)
[2019-08-13] MEDS: OMEPRAZOLE 20 MG CAPSULE PO SCH (08:26)
[2019-08-13] MEDS: QUEtiapine FUMARATE 200 MG TABLET PO SCH ×2 (08:26→20:09)
[2019-08-13] MEDS: OXYBUTYNIN CHLORIDE 5 MG ER TABLET PO SCH (08:27)
[2019-08-13] MEDS: DOCUSATE SODIUM 100 MG CAPSULE PO SCH (08:27)
[2019-08-13] MEDS: LevETIRAcetam 250 MG TABLET PO SCH ×2 (08:27→17:47)
[2019-08-13] MEDS: VALPROIC ACID 250 MG CAPSULE PO SCH ×2 (08:27→20:09)
[2019-08-13] MEDS: ASCORBIC ACID 500 MG TABLET PO SCH (08:27)
[2019-08-13] MEDS: TOPIRAMATE 100 MG TABLET PO SCH ×3 (08:28→17:47)
[2019-08-13 17:35] LABS: GLUCOMETER DEV NAME(LOC) 3E.I 2; GLUCOSE,POINT OF CARE 146 MG/DL (70-110)
[2019-08-13] MEDS: INSULIN LISPRO 100 UNITS/ML SQ PRN (18:02)
[2019-08-13 18:44] VITALS: BP 137/88
[2019-08-13] MEDS: HALOPERIDOL 10 MG TABLET PO SCH (20:09)
[2019-08-14] MEDS: LEVOTHYROXINE SODIUM 100 MCG TABLET PO SCH (06:48)
[2019-08-14] MEDS: FERROUS SULFATE 325 MG EC TABLET PO SCH ×2 (06:48→17:19)
[2019-08-14] MEDS: INSULIN LISPRO 100 UNITS/ML SQ PRN (06:50)
[2019-08-14 06:52] LABS: GLUCOMETER DEV NAME(LOC) 3E.I 2; GLUCOSE,POINT OF CARE 163 MG/DL (70-110)
[2019-08-14] MEDS: OMEGA-3/DHA/EPA/FISH OIL 1,000 MG CAPSULE PO SCH (08:38)
[2019-08-14] MEDS: FLUoxetine HCL 20 MG CAPSULE PO SCH (08:38)
[2019-08-14] MEDS: DOCUSATE SODIUM 100 MG CAPSULE PO SCH (08:38)
[2019-08-14] MEDS: ASPIRIN 81 MG EC TABLET PO SCH (08:38)
[2019-08-14] MEDS: LORATADINE 10 MG TABLET PO SCH (08:39)
[2019-08-14] MEDS: ASCORBIC ACID 500 MG TABLET PO SCH (08:39)
[2019-08-14] MEDS: LevETIRAcetam 250 MG TABLET PO SCH ×2 (08:39→17:19)
[2019-08-14] MEDS: TOPIRAMATE 100 MG TABLET PO SCH ×3 (08:39→17:19)
[2019-08-14] MEDS: MULTIVITAMINS WITH MINERALS, THERAPEUTIC TABLET PO SCH (08:39)
[2019-08-14] MEDS: OMEPRAZOLE 20 MG CAPSULE PO SCH (08:39)
[2019-08-14] MEDS: VALPROIC ACID 250 MG CAPSULE PO SCH ×2 (08:40→21:14)
[2019-08-14] MEDS: OXYBUTYNIN CHLORIDE 5 MG ER TABLET PO SCH (08:40)
[2019-08-14] MEDS: MAGNESIUM OXIDE 400 MG TABLET PO SCH ×3 (08:41→17:19)
[2019-08-14] MEDS: QUEtiapine FUMARATE 200 MG TABLET PO SCH ×2 (08:41→21:15)
[2019-08-14 10:39] VITALS: BP 99/72
[2019-08-14 16:12] VITALS: BP 98/66
[2019-08-14] MEDS: HALOPERIDOL 10 MG TABLET PO SCH (21:15)
[2019-08-15 06:15] LABS: GLUCOMETER DEV NAME(LOC) 3E.I 2; GLUCOSE,POINT OF CARE 94 MG/DL (70-110)
[2019-08-15] MEDS: FERROUS SULFATE 325 MG EC TABLET PO SCH ×2 (06:55→16:29)
[2019-08-15] MEDS: LEVOTHYROXINE SODIUM 100 MCG TABLET PO SCH (06:55)
[2019-08-15] MEDS: FLUoxetine HCL 20 MG CAPSULE PO SCH (08:20)
[2019-08-15] MEDS: OMEPRAZOLE 20 MG CAPSULE PO SCH (08:21)
[2019-08-15] MEDS: MULTIVITAMINS WITH MINERALS, THERAPEUTIC TABLET PO SCH (08:21)
[2019-08-15] MEDS: QUEtiapine FUMARATE 200 MG TABLET PO SCH ×2 (08:21→20:43)
[2019-08-15] MEDS: ASPIRIN 81 MG EC TABLET PO SCH (08:21)
[2019-08-15] MEDS: TOPIRAMATE 100 MG TABLET PO SCH ×3 (08:21→16:29)
[2019-08-15] MEDS: LORATADINE 10 MG TABLET PO SCH (08:21)
[2019-08-15] MEDS: MAGNESIUM OXIDE 400 MG TABLET PO SCH ×3 (08:21→16:29)
[2019-08-15] MEDS: ASCORBIC ACID 500 MG TABLET PO SCH (08:21)
[2019-08-15] MEDS: DOCUSATE SODIUM 100 MG CAPSULE PO SCH (08:21)
[2019-08-15] MEDS: OMEGA-3/DHA/EPA/FISH OIL 1,000 MG CAPSULE PO SCH (08:21)
[2019-08-15] MEDS: OXYBUTYNIN CHLORIDE 5 MG ER TABLET PO SCH (08:22)
[2019-08-15] MEDS: VALPROIC ACID 250 MG CAPSULE PO SCH ×2 (08:22→20:44)
[2019-08-15] MEDS: LevETIRAcetam 250 MG TABLET PO SCH ×2 (08:22→16:29)
[2019-08-15 09:00] VITALS: BP 95/47
[2019-08-15 17:35] LABS: GLUCOMETER DEV NAME(LOC) 3E.I 2; GLUCOSE,POINT OF CARE 136 MG/DL (70-110)
[2019-08-15] MEDS: HALOPERIDOL 10 MG TABLET PO SCH (20:43)
[2019-08-16 05:59] LABS: GLUCOMETER DEV NAME(LOC) 3E.I 2; GLUCOSE,POINT OF CARE 105 MG/DL (70-110)
[2019-08-16] MEDS: LEVOTHYROXINE SODIUM 100 MCG TABLET PO SCH (06:53)
[2019-08-16] MEDS: FERROUS SULFATE 325 MG EC TABLET PO SCH ×2 (06:53→20:03)
[2019-08-16] MEDS: ASPIRIN 81 MG EC TABLET PO SCH (07:28)
[2019-08-16] MEDS: MAGNESIUM OXIDE 400 MG TABLET PO SCH ×3 (07:28→20:02)
[2019-08-16] MEDS: OMEPRAZOLE 20 MG CAPSULE PO SCH (07:28)
[2019-08-16] MEDS: QUEtiapine FUMARATE 200 MG TABLET PO SCH ×2 (07:29→20:03)
[2019-08-16] MEDS: FLUoxetine HCL 20 MG CAPSULE PO SCH (07:29)
[2019-08-16] MEDS: OXYBUTYNIN CHLORIDE 5 MG ER TABLET PO SCH (07:30)
[2019-08-16] MEDS: MULTIVITAMINS WITH MINERALS, THERAPEUTIC TABLET PO SCH (07:30)
[2019-08-16] MEDS: OMEGA-3/DHA/EPA/FISH OIL 1,000 MG CAPSULE PO SCH (07:31)
[2019-08-16] MEDS: LORATADINE 10 MG TABLET PO SCH (07:31)
[2019-08-16] MEDS: ASCORBIC ACID 500 MG TABLET PO SCH (07:31)
[2019-08-16] MEDS: TOPIRAMATE 100 MG TABLET PO SCH ×3 (07:31→20:02)
[2019-08-16] MEDS: DOCUSATE SODIUM 100 MG CAPSULE PO SCH (07:31)
[2019-08-16] MEDS: VALPROIC ACID 250 MG CAPSULE PO SCH ×2 (07:32→20:03)
[2019-08-16] MEDS: LevETIRAcetam 250 MG TABLET PO SCH ×2 (07:33→20:02)
[2019-08-16 16:32] VITALS: BP 93/54
[2019-08-16 17:16] LABS: GLUCOMETER DEV NAME(LOC) 3E.I 2; GLUCOSE,POINT OF CARE 95 MG/DL (70-110)
[2019-08-16] MEDS: HALOPERIDOL 10 MG TABLET PO SCH (20:03)
[2019-08-17 05:39] LABS: GLUCOMETER DEV NAME(LOC) 3E.I 2; GLUCOSE,POINT OF CARE 96 MG/DL (70-110)
[2019-08-17] MEDS: FERROUS SULFATE 325 MG EC TABLET PO SCH ×2 (06:41→17:20)
[2019-08-17] MEDS: LEVOTHYROXINE SODIUM 100 MCG TABLET PO SCH (06:41)
[2019-08-17] MEDS: MULTIVITAMINS WITH MINERALS, THERAPEUTIC TABLET PO SCH (07:48)
[2019-08-17] MEDS: OMEPRAZOLE 20 MG CAPSULE PO SCH (07:48)
[2019-08-17] MEDS: QUEtiapine FUMARATE 200 MG TABLET PO SCH ×2 (07:49→20:41)
[2019-08-17] MEDS: LevETIRAcetam 250 MG TABLET PO SCH ×2 (07:49→17:21)
[2019-08-17] MEDS: LORATADINE 10 MG TABLET PO SCH (07:49)
[2019-08-17] MEDS: ASPIRIN 81 MG EC TABLET PO SCH (07:49)
[2019-08-17] MEDS: FLUoxetine HCL 20 MG CAPSULE PO SCH (07:49)
[2019-08-17] MEDS: MAGNESIUM OXIDE 400 MG TABLET PO SCH ×3 (07:49→17:20)
[2019-08-17] MEDS: OMEGA-3/DHA/EPA/FISH OIL 1,000 MG CAPSULE PO SCH (07:49)
[2019-08-17] MEDS: DOCUSATE SODIUM 100 MG CAPSULE PO SCH (07:49)
[2019-08-17] MEDS: OXYBUTYNIN CHLORIDE 5 MG ER TABLET PO SCH (07:49)
[2019-08-17] MEDS: ASCORBIC ACID 500 MG TABLET PO SCH (07:50)
[2019-08-17] MEDS: VALPROIC ACID 250 MG CAPSULE PO SCH ×2 (07:50→20:41)
[2019-08-17] MEDS: TOPIRAMATE 100 MG TABLET PO SCH ×3 (07:50→17:21)
[2019-08-17 16:41] LABS: GLUCOMETER DEV NAME(LOC) 3E.I 2; GLUCOSE,POINT OF CARE 149 MG/DL (70-110)
[2019-08-17] MEDS: INSULIN LISPRO 100 UNITS/ML SQ PRN (17:48)
[2019-08-17] MEDS: HALOPERIDOL 10 MG TABLET PO SCH (20:41)
[2019-08-18 05:48] LABS: GLUCOMETER DEV NAME(LOC) 3E.I 2; GLUCOSE,POINT OF CARE 163 MG/DL (70-110)
[2019-08-18] MEDS: LEVOTHYROXINE SODIUM 100 MCG TABLET PO SCH (07:00)
[2019-08-18] MEDS: FERROUS SULFATE 325 MG EC TABLET PO SCH ×2 (07:00→16:48)
[2019-08-18] MEDS: INSULIN LISPRO 100 UNITS/ML SQ PRN (07:02)
[2019-08-18] MEDS: MULTIVITAMINS WITH MINERALS, THERAPEUTIC TABLET PO SCH (08:09)
[2019-08-18] MEDS: ASPIRIN 81 MG EC TABLET PO SCH (08:09)
[2019-08-18] MEDS: OMEPRAZOLE 20 MG CAPSULE PO SCH (08:09)
[2019-08-18] MEDS: OMEGA-3/DHA/EPA/FISH OIL 1,000 MG CAPSULE PO SCH (08:09)
[2019-08-18] MEDS: QUEtiapine FUMARATE 200 MG TABLET PO SCH ×2 (08:10→21:46)
[2019-08-18] MEDS: FLUoxetine HCL 20 MG CAPSULE PO SCH (08:10)
[2019-08-18] MEDS: TOPIRAMATE 100 MG TABLET PO SCH ×3 (08:10→16:48)
[2019-08-18] MEDS: ASCORBIC ACID 500 MG TABLET PO SCH (08:10)
[2019-08-18] MEDS: DOCUSATE SODIUM 100 MG CAPSULE PO SCH (08:10)
[2019-08-18] MEDS: LevETIRAcetam 250 MG TABLET PO SCH ×2 (08:10→16:48)
[2019-08-18] MEDS: LORATADINE 10 MG TABLET PO SCH (08:10)
[2019-08-18] MEDS: OXYBUTYNIN CHLORIDE 5 MG ER TABLET PO SCH (08:11)
[2019-08-18] MEDS: VALPROIC ACID 250 MG CAPSULE PO SCH ×2 (08:11→21:46)
[2019-08-18] MEDS: MAGNESIUM OXIDE 400 MG TABLET PO SCH ×3 (09:29→16:48)
[2019-08-18 17:06] VITALS: BP 127/66
[2019-08-18 17:38] LABS: GLUCOMETER DEV NAME(LOC) 3E.I 2; GLUCOSE,POINT OF CARE 117 MG/DL (70-110)
[2019-08-18] MEDS: HALOPERIDOL 10 MG TABLET PO SCH (21:46)
[2019-08-19 05:56] LABS: GLUCOMETER DEV NAME(LOC) 3E.I 2; GLUCOSE,POINT OF CARE 107 MG/DL (70-110)
[2019-08-19] MEDS: FERROUS SULFATE 325 MG EC TABLET PO SCH ×2 (07:02→17:32)
[2019-08-19] MEDS: LEVOTHYROXINE SODIUM 100 MCG TABLET PO SCH (07:02)
[2019-08-19] MEDS: OMEPRAZOLE 20 MG CAPSULE PO SCH (08:34)
[2019-08-19] MEDS: MULTIVITAMINS WITH MINERALS, THERAPEUTIC TABLET PO SCH (08:34)
[2019-08-19] MEDS: ASPIRIN 81 MG EC TABLET PO SCH (08:35)
[2019-08-19] MEDS: QUEtiapine FUMARATE 200 MG TABLET PO SCH ×2 (08:35→20:03)
[2019-08-19] MEDS: MAGNESIUM OXIDE 400 MG TABLET PO SCH ×3 (08:35→17:32)
[2019-08-19] MEDS: OMEGA-3/DHA/EPA/FISH OIL 1,000 MG CAPSULE PO SCH (08:35)
[2019-08-19] MEDS: DOCUSATE SODIUM 100 MG CAPSULE PO SCH (08:35)
[2019-08-19] MEDS: FLUoxetine HCL 20 MG CAPSULE PO SCH (08:35)
[2019-08-19] MEDS: LevETIRAcetam 250 MG TABLET PO SCH ×2 (08:35→17:31)
[2019-08-19] MEDS: LORATADINE 10 MG TABLET PO SCH (08:35)
[2019-08-19] MEDS: ASCORBIC ACID 500 MG TABLET PO SCH (08:36)
[2019-08-19] MEDS: OXYBUTYNIN CHLORIDE 5 MG ER TABLET PO SCH (08:36)
[2019-08-19] MEDS: VALPROIC ACID 250 MG CAPSULE PO SCH ×2 (08:36→20:03)
[2019-08-19] MEDS: TOPIRAMATE 100 MG TABLET PO SCH ×3 (08:36→17:31)
[2019-08-19 16:10] VITALS: BP 102/57
[2019-08-19 17:03] LABS: GLUCOMETER DEV NAME(LOC) 3E.I 2; GLUCOSE,POINT OF CARE 165 MG/DL (70-110)
[2019-08-19] MEDS: INSULIN LISPRO 100 UNITS/ML SQ PRN (17:31)
[2019-08-19] MEDS: HALOPERIDOL 10 MG TABLET PO SCH (20:03)
[2019-08-20 06:07] LABS: GLUCOMETER DEV NAME(LOC) 3E.I 2; GLUCOSE,POINT OF CARE 175 MG/DL (70-110)
[2019-08-20] MEDS: FERROUS SULFATE 325 MG EC TABLET PO SCH ×2 (06:42→17:22)
[2019-08-20] MEDS: LEVOTHYROXINE SODIUM 100 MCG TABLET PO SCH (06:42)
[2019-08-20] MEDS: INSULIN LISPRO 100 UNITS/ML SQ PRN ×2 (06:43→17:26)
[2019-08-20 08:17] VITALS: BP 109/60
[2019-08-20] MEDS: QUEtiapine FUMARATE 200 MG TABLET PO SCH ×2 (09:04→20:15)
[2019-08-20] MEDS: LORATADINE 10 MG TABLET PO SCH (09:04)
[2019-08-20] MEDS: VALPROIC ACID 250 MG CAPSULE PO SCH ×2 (09:05→20:15)
[2019-08-20] MEDS: OXYBUTYNIN CHLORIDE 5 MG ER TABLET PO SCH (09:05)
[2019-08-20] MEDS: MAGNESIUM OXIDE 400 MG TABLET PO SCH ×3 (09:05→17:21)
[2019-08-20] MEDS: ASCORBIC ACID 500 MG TABLET PO SCH (09:05)
[2019-08-20] MEDS: LevETIRAcetam 250 MG TABLET PO SCH ×2 (09:05→17:21)
[2019-08-20] MEDS: ASPIRIN 81 MG EC TABLET PO SCH (09:05)
[2019-08-20] MEDS: OMEPRAZOLE 20 MG CAPSULE PO SCH (09:05)
[2019-08-20] MEDS: DOCUSATE SODIUM 100 MG CAPSULE PO SCH (09:05)
[2019-08-20] MEDS: MULTIVITAMINS WITH MINERALS, THERAPEUTIC TABLET PO SCH (09:05)
[2019-08-20] MEDS: TOPIRAMATE 100 MG TABLET PO SCH ×3 (09:06→18:40)
[2019-08-20] MEDS: OMEGA-3/DHA/EPA/FISH OIL 1,000 MG CAPSULE PO SCH (09:08)
[2019-08-20] MEDS: FLUoxetine HCL 20 MG CAPSULE PO SCH (09:08)
[2019-08-20] MEDS ORDERED: HALO10 PO ×2 (14:24→15:00)
[2019-08-20] MEDS ORDERED: FLUO-191 PO ×2 (14:24→14:52)
[2019-08-20] MEDS ORDERED: LEVE250T55 PO (14:25)
[2019-08-20] MEDS ORDERED: QUET200T PO ×2 (14:26→15:00)
[2019-08-20] MEDS ORDERED: OMEP20 PO (14:43)
[2019-08-20] MEDS ORDERED: DOCU-275 PO ×2 (14:44→14:58)
[2019-08-20] MEDS ORDERED: OMEG-48 PO (14:44)
[2019-08-20] MEDS ORDERED: FERR-89 PO (14:47)
[2019-08-20] MEDS ORDERED: VALP250C48 PO (14:50)
[2019-08-20 16:28] LABS: GLUCOMETER DEV NAME(LOC) 3E.I 2; GLUCOSE,POINT OF CARE 161 MG/DL (70-110)
[2019-08-20 16:45] VITALS: BP 107/77
[2019-08-20] MEDS: HALOPERIDOL 10 MG TABLET PO SCH (20:15)
[2019-08-21 05:58] LABS: GLUCOMETER DEV NAME(LOC) 3E.I 2; GLUCOSE,POINT OF CARE 88 MG/DL (70-110)
[2019-08-21] MEDS: FERROUS SULFATE 325 MG EC TABLET PO SCH (06:30)
[2019-08-21] MEDS: LEVOTHYROXINE SODIUM 100 MCG TABLET PO SCH (06:30)
[2019-08-21] MEDS: OMEGA-3/DHA/EPA/FISH OIL 1,000 MG CAPSULE PO SCH (07:41)
[2019-08-21] MEDS: MAGNESIUM OXIDE 400 MG TABLET PO SCH (07:41)
[2019-08-21] MEDS: LORATADINE 10 MG TABLET PO SCH (07:42)
[2019-08-21] MEDS: OMEPRAZOLE 20 MG CAPSULE PO SCH (07:42)
[2019-08-21] MEDS: DOCUSATE SODIUM 100 MG CAPSULE PO SCH (07:42)
[2019-08-21] MEDS: QUEtiapine FUMARATE 200 MG TABLET PO SCH (07:42)
[2019-08-21] MEDS: MULTIVITAMINS WITH MINERALS, THERAPEUTIC TABLET PO SCH (07:42)
[2019-08-21] MEDS: FLUoxetine HCL 20 MG CAPSULE PO SCH (07:43)
[2019-08-21] MEDS: ASPIRIN 81 MG EC TABLET PO SCH (07:43)
[2019-08-21] MEDS: VALPROIC ACID 250 MG CAPSULE PO SCH (07:44)
[2019-08-21] MEDS: TOPIRAMATE 100 MG TABLET PO SCH (07:44)
[2019-08-21] MEDS: ASCORBIC ACID 500 MG TABLET PO SCH (07:44)
[2019-08-21] MEDS: LevETIRAcetam 250 MG TABLET PO SCH (07:45)
[2019-08-21] MEDS: OXYBUTYNIN CHLORIDE 5 MG ER TABLET PO SCH (07:45)
[2019-08-21 08:00] VITALS: BP 102/54
[2019-08-21] MEDS ORDERED: INFLUENZA VIRUS VACCINE QVS 2019-20 (3YR+)/PF 60 MCG/0.5 ML SYRINGE IM ONE (10:45)
[2019-08-21] MEDS ORDERED: PNEUMOCOCCAL VACCINE POLYVALENT 0.5 ML VIAL [PPSV23] IM ONE (11:00)
== END 2019-08-21 11:50 | disposition home or self-care (01) | DRG 885 ==
LOC: 3EC 18:45 → 3EI 12-19 22:30
PROVIDERS: ADMIT Psychiatry & Neurology Psychiatry; ATTEND Psychiatry & Neurology Psychiatry
PROC: 3E02340 Introduction of Influenza Vaccine into Muscle, Percutaneous Approach (ICD-10-PCS; principal; 2019-08-21)
PROC: 3E0234Z Introduction of Serum, Toxoid and Vaccine into Muscle, Percutaneous Approach (ICD-10-PCS; 2019-08-21)
DX: F25.9 Schizoaffective disorder, unspecified (principal); E11.65 Type 2 diabetes mellitus with hyperglycemia; Z78.1 Physical restraint status; D64.9 Anemia, unspecified; Z79.4 Long term (current) use of insulin; E03.9 Hypothyroidism, unspecified; I10 Essential (primary) hypertension; R32 Unspecified urinary incontinence; F41.9 Anxiety disorder, unspecified; Y93.9 Activity, unspecified; G40.909 Epilepsy, unspecified, not intractable, without status epilepticus; Z59.0 Homelessness; Z79.899 Other long term (current) drug therapy; Z91.19 Patient's noncompliance with other medical treatment and regimen; Z91.81 History of falling; Z23 Encounter for immunization
CPT/HCPCS: 70260; 80074; 83036; 83735; 84100; 84436; 84439; 84443; 85007; 87081; 87086; 90686; 90732; 92526; 92610; 97162; G0482; J1200; J1630; J2060; Q0162

== ENCOUNTER 2021-05-08 05:52 | Day surgery (SDC) | payer OTHER ==
[~2021-05-08] VITALS: Ht 139.7 cm; Wt 59.0 kg
[~2021-05-08 05:52] MED LIST changes: -BENA5TAB26 PO; -DIVA-78 PO; +DOCU-270 PO; +FLUO-191 PO; -FLUO40CA7 PO; +LEVE250T4 PO; -LEVE250T55 PO; +MAGN400T7 PO; -MAGOX PO; +OMEG-48 PO; +OMEP20 PO; +VALP250C48 PO
[2021-05-08] MEDS ORDERED: LIDOCAINE/PF 2% 5 ML VIAL IM ONE (05:53)
[2021-05-08] MEDS ORDERED: KETAMINE HCL 50 MG/ML 10 ML VIAL IVP ONE (05:53)
[2021-05-08] MEDS ORDERED: PROPOFOL 1% 20 ML VIAL IVP ONE (05:53)
[2021-05-08] MEDS ORDERED: ONDANSETRON HCL 4 MG/2 ML VIAL IVP ONE (05:53)
[2021-05-08] MEDS ORDERED: RINGERS SOLUTION,LACTATED 1,000 ML IV ONE ×2 (06:36→07:00)
[2021-05-08 07:42] LABS: GLUCOMETER DEV NAME(LOC) SDS.; GLUCOSE,POINT OF CARE 178 MG/DL (70-110)
[2021-05-08 07:52] LABS: BASOPHILS % (AUTO) 0.2 % (0.0-2.0); EOSINOPHILS % (AUTO) 0.4 % (1.0-6.0); HEMATOCRIT 42.2 % (36-46); HEMOGLOBIN 14.2 g/dL (12.0-16.0); LYMPHOCYTES % (AUTO) 60.2 % (22.0-44.0); MEAN CORPUSCULAR HEMOGLOBIN 33.6 pg (26.0-34.0); MEAN CORPUSCULAR HGB CONC 33.7 G/dL (31.0-37.0); MEAN CORPUSCULAR VOLUME 100 fL (80-100); MONOCYTES # (AUTO) 0.5 K/uL (0.1-1.0); MONOCYTES % (AUTO) 7.9 % (2.0-9.0); NEUTROPHILS # (AUTO) 2.1 K/uL (1.8-7.7); NEUTROPHILS % (AUTO) 31.3 % (40.0-70.0); PLATELET COUNT (AUTO) 140 K/uL (150-450); RED BLOOD CELL COUNT(AUTO) 4.23 MIL/uL (4.00-5.20); RED CELL DISTRIBUTION WIDTH 12.7 % (11.5-14.5)
[2021-05-08 08:00] LABS: ANION GAP 8 mmol/L (8-16); CALCIUM, TOTAL 9.4 mg/dL (8.8-10.5); CARBON DIOXIDE 30 mmol/L (22-29); CHLORIDE 105 mmol/L (98-107); CREATININE 0.57 mg/dL (0.60-1.30); GLOMERULAR FILTR. RATE CALC > 60 mL/min (>60); GLUCOSE,RANDOM 180 mg/dL (70-110); POTASSIUM 4.1 mmol/L (3.5-5.1); SODIUM SERUM 143 mmol/L (136-145); UREA NITROGEN, BLOOD 18 mg/dL (7-18)
[2021-05-08 08:06] LABS: COVID AG,FIA SOURCE NASOPHARYNGEAL
[2021-05-08 08:06] LABS: ALANINE AMINOTRANSFERASE 23 U/L (12-78); ALBUMIN 3.1 g/dL (3.4-5.0); ALKALINE PHOSPHATASE 75 U/L (46-116); ASPARTATE AMINOTRANSFERASE 14 U/L (15-37); BILIRUBIN,TOTAL 0.2 mg/dL (0.1-1.0); INR 1.1 (0.9-1.1); PROTHROMBIN TIME 11.5 SEC (9.4-11.6); TOTAL PROTEIN, SERUM 7.1 g/dL (6.4-8.2)
[2021-05-08] MEDS ORDERED: AMPICILLIN SODIUM 1 GM/VIAL ONE (08:32)
[2021-05-08] MEDS ORDERED: SODIUM CHLORIDE 0.9% 100 ML ONE (08:33)
[2021-05-08] MEDS ORDERED: SODIUM CHLORIDE 0.9% 10 ML ONE (08:36)
[2021-05-08] MEDS ORDERED: MIDAZOLAM HCL 5 MG/ML VIAL ONE (09:46)
== END 2021-05-08 13:25 | disposition home or self-care (01) ==
LOC: SURGERY 05:52
PROVIDERS: ATTEND Dentist General Practice
DX: K02.9 Dental caries, unspecified (principal); K05.30 Chronic periodontitis, unspecified; G80.9 Cerebral palsy, unspecified; M81.0 Age-related osteoporosis without current pathological fracture; F41.9 Anxiety disorder, unspecified; E11.9 Type 2 diabetes mellitus without complications; I10 Essential (primary) hypertension; E03.9 Hypothyroidism, unspecified; K21.9 Gastro-esophageal reflux disease without esophagitis; Z79.899 Other long term (current) drug therapy; Z98.890 Other specified postprocedural states; Z79.01 Long term (current) use of anticoagulants
CPT/HCPCS: 36415; 41899; 71045; 80053; 82962; 84703; 85025; 85610; 85730; 87426; 93005; C9803; J0290; J2250; J2405; J2704; J3490 ×2; J7050; J7120

== ENCOUNTER → 2022-11-12 | Day surgery (SDC) | payer OTHER ==
[~2022-11-12] VITALS: Ht 139.7 cm; Wt 59.1 kg
[~2022-11-12] MED LIST changes: +AMPICILLIN SODIUM 2 GM/NS 100 ML IV ONE; +ATOR10TA69 PO; +CHOL200059 PO; +CLOM25 PO; +DIPH-1243 PO; +DIVA-111 PO; -DOCU-270 PO; +DOCU-385 PO; -FERR-89 PO; +FERR325T27 PO; +FLUO-177 PO; -FLUO-191 PO; +FLUV100T22 PO; +GABA-1181 PO; -HALO10 PO; +HALO10TA21 PO; +INSU100V36 SQ; +LACT10SO75 PO; +LACT1TAB20 PO; +LIDOCAINE/PF 2% 5 ML VIAL IM ONE; +MELA5TAB40 PO; +MULT-1239 PO; +OLAN5TAB77 PO; +ONDANSETRON HCL 4 MG/2 ML VIAL IVP ONE; +PROM-163 PO; +PROPOFOL 1% 20 ML VIAL IVP ONE; +QUET300T19 PO; +RINGERS SOLUTION,LACTATED 1,000 ML IV ONE; +ROCURONIUM BROMIDE 10 MG/ML 5 ML VIAL IVP ONE; +SITA50 PO; +SUVO15TA PO; +TEMA15CA PO; +TOPI-255 PO; +ZINC220C14 PO; +[UNRECOGNIZED DRUG - CODE] PO
[2022-11-12 09:37] LABS: GLUCOMETER DEV NAME(LOC) SDS.; GLUCOSE,POINT OF CARE 120 MG/DL (70-110)
[2022-11-12 14:32] LABS: GLUCOMETER DEV NAME(LOC) SDS.; GLUCOSE,POINT OF CARE 90 MG/DL (70-110)
== END | disposition still patient (30) ==
LOC: SURGERY 06:40
PROVIDERS: ATTEND Dentist General Practice
DX: K02.9 Dental caries, unspecified (principal); K05.30 Chronic periodontitis, unspecified; K21.9 Gastro-esophageal reflux disease without esophagitis; E03.9 Hypothyroidism, unspecified; I10 Essential (primary) hypertension; E11.9 Type 2 diabetes mellitus without complications; D64.9 Anemia, unspecified; E78.5 Hyperlipidemia, unspecified; F41.9 Anxiety disorder, unspecified; M81.0 Age-related osteoporosis without current pathological fracture; G80.9 Cerebral palsy, unspecified; Z79.899 Other long term (current) drug therapy; Z98.890 Other specified postprocedural states
CPT/HCPCS: 41899; 36415; 84703; 82962; J0290; J2704; J3490 ×2; J2405; J7120

== ENCOUNTER 2024-07-21 05:22 | Day surgery (SDC) | payer OTHER ==
[~2024-07-21] VITALS: Ht 139.7 cm; Wt 60.1 kg
[~2024-07-21 05:22] MED LIST changes: -AMPICILLIN SODIUM 2 GM/NS 100 ML IV ONE; -ASPI81TA87 PO; -DOCU-385 PO; -FLUO-177 PO; -HALO10TA21 PO; -LEVE250T4 PO; +LEVE250T81 PO; -LIDOCAINE/PF 2% 5 ML VIAL IM ONE; -LORA10TA7 PO; -ONDANSETRON HCL 4 MG/2 ML VIAL IVP ONE; -OXYB5TAB27 PO; -PROM-163 PO; +PROM-223 PO; -PROPOFOL 1% 20 ML VIAL IVP ONE; -QUET200T PO; -RINGERS SOLUTION,LACTATED 1,000 ML IV ONE; -ROCURONIUM BROMIDE 10 MG/ML 5 ML VIAL IVP ONE; -TOPI-255 PO; +TOPI-258 PO; +TOPI-97 PO; -TOPI100T37 PO; -VALP250C48 PO; -ZINC220C14 PO; +ZINC50CA3 PO
[2024-07-21] MEDS ORDERED: RINGERS SOLUTION,LACTATED 1,000 ML IV ONE (05:38)
[2024-07-21] MEDS ORDERED: ZINC50CA3 PO (07:32)
[2024-07-21] MEDS ORDERED: LACT1TAB4 PO (07:32)
[2024-07-21] MEDS ORDERED: SITA100 PO (07:32)
[2024-07-21] MEDS ORDERED: EMPA10TA3 PO (07:32)
[2024-07-21] MEDS ORDERED: QUET400T13 PO (07:32)
[2024-07-21 08:03] LABS: BASOPHILS % (AUTO) 0.2 % (0.0-2.0); EOSINOPHILS % (AUTO) 2.9 % (1.0-6.0); HEMATOCRIT 41.9 % (36-46); HEMOGLOBIN 13.7 g/dL (12.0-16.0); LYMPHOCYTES # (AUTO) 3.1 K/uL (1.0-4.8); LYMPHOCYTES % (AUTO) 37.3 % (22.0-44.0); MEAN CORPUSCULAR HEMOGLOBIN 31.4 pg (26.0-34.0); MEAN CORPUSCULAR HGB CONC 32.8 G/dL (31.0-37.0); MEAN CORPUSCULAR VOLUME 96 fL (80-100); MONOCYTES # (AUTO) 0.9 K/uL (0.1-1.0); MONOCYTES % (AUTO) 10.9 % (2.0-9.0); NEUTROPHILS # (AUTO) 4.1 K/uL (1.8-7.7); NEUTROPHILS % (AUTO) 48.7 % (40.0-70.0); PLATELET COUNT (AUTO) 216 K/uL (150-450); RED BLOOD CELL COUNT(AUTO) 4.38 MIL/uL (4.00-5.20); WHITE BLOOD COUNT (AUTO) 8.4 K/uL (4.5-11.0)
[2024-07-21] MEDS: RINGERS SOLUTION,LACTATED 1,000 ML IV ONE (08:12)
[2024-07-21 08:14] LABS: ANION GAP 5 mmol/L (8-16); CALCIUM, TOTAL 9.7 mg/dL (8.8-10.5); CARBON DIOXIDE 30 mmol/L (22-29); CHLORIDE 98 mmol/L (98-107); GLOMERULAR FILTR. RATE CALC > 60 mL/min (>60); GLUCOSE,RANDOM 134 mg/dL (70-110); POTASSIUM 4.2 mmol/L (3.5-5.1); SODIUM SERUM 133 mmol/L (136-145); UREA NITROGEN, BLOOD 14 mg/dL (7-18)
[2024-07-21 08:20] LABS: ALANINE AMINOTRANSFERASE 29 U/L (12-78); ALBUMIN 2.8 g/dL (3.4-5.0); ALKALINE PHOSPHATASE 89 U/L (46-116); ASPARTATE AMINOTRANSFERASE 16 U/L (15-37); BILIRUBIN,TOTAL 0.1 mg/dL (0.1-1.0); PROTHROMBIN TIME 11.2 SEC (9.4-11.6); TOTAL PROTEIN, SERUM 7.2 g/dL (6.4-8.2)
[2024-07-21] MEDS ORDERED: LIDOCAINE/PF 2% 5 ML VIAL IM ONE (12:00)
[2024-07-21] MEDS ORDERED: SUGAMMADEX SODIUM 200 MG/2 ML VIAL IVP ONE (12:00)
[2024-07-21] MEDS ORDERED: ROCURONIUM BROMIDE 10 MG/ML 5 ML VIAL IVP ONE (12:00)
[2024-07-21] MEDS ORDERED: ONDANSETRON HCL 4 MG/2 ML VIAL IVP ONE (12:00)
[2024-07-21] MEDS ORDERED: DEXAMETHASONE SOD PHOS 4 MG/ML VIAL IVP ONE (12:00)
[2024-07-21] MEDS ORDERED: PROPOFOL 1% 20 ML VIAL IVP ONE (12:00)
== END 2024-07-21 12:00 | disposition home or self-care (01) ==
LOC: SURGERY 05:22
PROVIDERS: ATTEND Dentist General Practice
DX: K05.30 Chronic periodontitis, unspecified (principal); K02.9 Dental caries, unspecified; M81.0 Age-related osteoporosis without current pathological fracture; G80.9 Cerebral palsy, unspecified; F41.9 Anxiety disorder, unspecified; E11.9 Type 2 diabetes mellitus without complications; I10 Essential (primary) hypertension; E03.9 Hypothyroidism, unspecified; K21.9 Gastro-esophageal reflux disease without esophagitis; Z79.01 Long term (current) use of anticoagulants; Z79.899 Other long term (current) drug therapy; Z98.890 Other specified postprocedural states
CPT/HCPCS: 41899; 71045; 80053; 84703; 85025; 85610; 85730; 36415; 93005; J7120; J1100; J2405; J2704; J3490; Z7610